=== PATIENT | female | born 1975 | race Caucasian/White ===

== ENCOUNTER → 2016-05-28 | Outpatient (CLI) | payer OTHER ==
[~2016-05-28] MED LIST: /ESOM40CA; /ESOM40CA OR; /PANT40TA PO; /WARF5TA PO; ABIL5TAB OR; ABIL5TAB PO; ABIL5TAB5 PO; ACET500C; ACET500C OR; AMBI5TAB PO; BACL-67 PO; BODY PO; BUTRAN TD; CALC600T21 PO; CARA1TAB2 PO; CENTTAB47 PO; CHILCHW18 PO; COLA100C PO; COUM10TA PO; COUM1TAB17 PO; CYTO100T PO; EFFE150C PO; EFFE75CA75 OR; FERR325T OR; FERR32TA PO; FISH500C PO; FLEXERIL PO; HYDR-3719 PO; HYDRCRY PO; IRON18TA PO; IRON28TA; IRONCAP2 PO; IRONTAB3 PO; LASI40TA; LASI40TA OR; LIDO5DIS36 TD; LIPI10TA OR; LYRI75CA PO; MAXA10TA14 PO; MAXA10TA17; MAXA10TA17 OR; MELA1CAP2 PO; MIRA3350 PO; MISO200T3 PO; MOTR200T4 PO; MULTLIQ7 PO; NEXI40CA PO; PANT40TA2 PO; PREG50CA PO; PREN1CHW PO; PRENTAB44 PO; PROZ10CA7 PO; PROZ40CA PO; ROBA750T4 PO; SUCR1SUS PO; SUCR1TA PO; TOPA50TA7 PO; TOPI25TA2; TOPI50TA OR; TRAM50TA2 PO; TYLE325T5 PO; VENL37TA PO; VENL75TA2 PO; VICO5TAB OR; VICO5TAB PO; VICTOZA PO; VITA10002 PO; VITA100027; VITA100027 OR; VITA100072 PO; VITA250011 PO; VITA500019 PO; VITA50003 PO; VITAD1000T PO; VITAMIN B12 SC; XANA0.25 PO; XARE15TA PO; ZANA2CAP PO; ZANA4CAP PO; ZOFR20TA PO; [UNRECOGNIZED DRUG - OTHER] PO; [UNRECOGNIZED DRUG - OTHER] PO; coumadin PO
--- NOTE | 2016-06-07 00:24 | ECWPNPC ---
PATIENT NAME: NEYDA MAYNARD : 1975 GENDER: FEMALE VISIT DATE: 05/28/2016 DISCHARGE DATE: 05/28/16 1206 VISIT LOCKED DATE TIME: PHYSICIAN: ASTRID VELEZ PHYSICIAN PAGER NO: [phone] RESOURCE: ASTRID VELEZ REASON FOR APPOINTMENT 1. LOW BACK PAIN W/C HISTORY OF PRESENT ILLNESS HISTORY OF PRESENT ILLNESS: PAIN THE PATIENT DESCRIBES THE PAIN... 40 YEAR OLD FEMALE PATIENT WITH HISTORY OF CHRONIC LOW BACK PAIN. PATIENT DESCRIBES THE PAIN SHARP, STABBING, TENDER, THROBBING, SORE, SHOOTING, AND HAVING IT ALL THE TIME WITH A PAIN SCORE OF 8/10. 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 PATIENT SINCE THAT TRIED PHYSICAL THERAPY, ICE, HEAT AND OTHER METHODS BUT DID NOT FIND RELIEF FROM THEM. PATIENT IS CURRENTLY USING HYDROCODONE, LYRICA, AND TIZANIDINE WHICH SHE BELIEVES HELPS KEEP HER FUNCTIONAL AND MOBILE. PATIENT STATES THAT ANY TYPE OF ACTIVITY INCLUDING SITTING, STANDING, AND WALKING INCREASES THE PAIN IN HER LOWER BACK AND AT THIS TIME THE ONLY THING THAT HAS GIVEN HER RELIEF IS MEDICATION AND RELAXING. PATIENT DENIES UNEXPLAINABLE WEIGHT LOSS, FEVER, CHILLS, NEW CHANGES ON HIS URINARY OR BOWEL CONTROL. FALL RISK SCREENING: SCREENING :TWO OR MORE FALLS WITHOUT INJURY IN THE PAST YEAR CURRENT MEDICATIONS TAKING TOPAMAX 50 MG TABLET 1 TABLET ORALLY TWICE A DAY TAKING MAXALT-QA LEAD 10 MG TABLET DISPERSIBLE REPEAT WITH ONE TAB IN 2 HOURS IF NO REIEF ORALLY WITH ONSET OF MIGRAINE DAILY NEEDED TAKING XARELTO 20 TABLET 1 TABLET WITH FOOD ORALLY QD TAKING MIRALAX POWDER 2 CAP(S) ORALLY BID TAKING ZOFRAN 4 MG TABLET 1 ORALLY QID PRN NAUSEA TAKING NEXIUM 40 MG CAPSULE DELAYED RELEASE 1 CAPSULE ORALLY ONCE A DAY TAKING VITAMIN B-12 1000 MCG TABLET 1 TABLET ORALLY ONCE A DAY OTC TAKING LYRICA 150 MG CAPSULE 1 CAPSULE ORALLY TWICE DAILY TAKING ABILIFY 10 MG TABLET 1/2 TABLET ORALLY ONCE A DAY TAKING AMBIEN 10 MG TABLET 1 TABLET AT BEDTIME NEEDED ORALLY ONCE A DAY AT BEDTIME. MDD=1 TAKING MULTIVIT-IRON ORALLY DAILY TAKING TIZANIDINE HCL 4 MG TABLET 1 TABLET NEEDED ORALLY AT BEDTIME TAKING ABILIFY 5 MG TABLET 1 TABLET ORALLY ONCE A DAY TAKING VENLAFAXINE HCL 100 MG TABLET 1 TABLET WITH FOOD ORALLY TID TAKING CALCIUM 500 MG TABLET 1 TABLET WITH MEALS ORALLY TWICE A DAY TAKING VITAMIN D-3 5000 UNIT TABLET 1 CAPSULE ORALLY TWICE DAILY TAKING NORCO 10-325 MG TABLET 1 TABLET NEEDED ORALLY EVERY4 HRS PRN PAIN MDD=6 TAKING VITAMIN D3 MAXIMUM STRENGTH 5000 UNIT CAPSULE 2 ORALLY DISCONTINUED VITAMIN D 1000 UNIT TABLET 1 TABLET ORALLY ONCE A DAY DISCONTINUED OMEPRAZOLE 40 MG CAPSULE DELAYED RELEASE 1 CAPSULE ORALLY ONCE A DAY MEDICATION LIST REVIEWED AND RECONCILED WITH THE PATIENT PAST MEDICAL HISTORY GERD MIGRAINE HEADACHE, COMMON TYPE-JUNE 2009 MRI OF THE BRAIN NORMAL EXCEPT FOR 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 VELEZ GERD-JUNE 2009 EGD WITH LA GRADE A REFLUX ESOPHAGITIS AND HIATAL HERNIA GRADE 1 DIASTOLIC DYSFUNCTION BY MAY 2010 TTE-ANTECOL DEPRESSION C H/O INTENTIONAL TRAMADOL OD 06/2013 REQUIRING MECHANICAL VENTILATION H/O BILATERAL PULMONARY EMBOLI INVOLVING B CENTRAL PA 06/2013, - B LE DVT US-FAVOR 2 TO IMMOBILITY/NO HYPERCOAG W/U DONE/NO PREVIOUS VTE - FVL, PT GENE VARIANT, PROTEIN C/S LEVEL, ACL GASTRIC ULCER BY EGD [id number] RLE PARTIAL DVT POPLITEAL VEIN BY 08/02/14 US-XARELTO 15 BID BY [facility]-07/2014 -LA, NORMAL PROTEIN C/S/ATIII, -ACL, - HPP (FOR LA) POSSIBLE ROYAL-PATIENT DEFERRED NPSG EXCISION L AXILLARY LN-BY PATHOLOGY REACTIVE, - FOR MALIGNANCY C BLACK TATTOO PIGMENT-01/2016-DIAZ ALLERGIES NSAIDS: SWELLING: SIDE EFFECTS VIOXX: HIVES: ALLERGY NEURONTIN: HIVES: ALLERGY BUTRANS TRANSDERMAL PATCH: VOMITING/FELT DRUNK: ALLERGY OXYCODONE: NAUSEA/VOMITING: ALLERGY GABAPENTIN: DRUNK FEELING: SIDE EFFECTS SURGICAL HISTORY BTL C SECTION X 2 GASTRIC BYPASS ENDOSCOPY IVC FILTER PLACED/REMOVED-BRET 11/18/2014, [id number] PATHOLOGY 12/09/14 LYMPHENDECTOMY 01/19/2016 FAMILY HISTORY NO FAMILY HISTORY DOCUMENTED. SOCIAL HISTORY GENERAL: TOBACCO USE ARE YOU A:NONSMOKER LEARNING BARRIERS / SPECIAL NEEDS ORIENTED TO PLAN OF CARE: PATIENT, PAIN MANAGEMENT PATIENT, ORIENTED TO PLAN OF CARE: PATIENT, PAIN MANAGEMENT PATIENT. NEW PATIENT PAIN DIARY TODAY'S VISITNOTES FROM 0-10, WHAT LEVEL IS YOUR PAIN TODAY?0 PAIN CLINIC PFS, CLERGY, PUBLIC HEALTH REFERRALS PFS REFERRAL NEEDED?NO CLERGY REFERRAL NEEDED?NO PUBLIC HEALTH REFERRAL NEEDED?NO WAS THE PROVIDER NOTIFIED OF ANY PERTINENT INFO?NO PFS REFERRAL NEEDED?NO CLERGY REFERRAL NEEDED?NO PUBLIC HEALTH REFERRAL NEEDED?NO WAS THE PROVIDER NOTIFIED OF ANY PERTINENT INFO?NO HOSPITALIZATION/MAJOR DIAGNOSTIC PROCEDURE DEHYDRATION, [facility] 06/2013 OVERDOSE OF TRAMADOL, PULMONARY EMBOLISM 07/13 REVIEW OF SYSTEMS CONSTITUTIONAL: ANY CHANGE IN YOUR MEDICAL CONDITION? NO . CHILLS NO . FEVER NO . INFECTION: DO YOU HAVE NEW INFECTIONS? NO . DO YOU HAVE HISTORY OF MRSA? NO . MUSCULOSKELETAL: ANY NEW PATTERNS OF PAIN OR NUMBNESS? YES,THE ENTIRE RIGHT LEG HAS INTENSE PAIN . GASTROENTEROLOGY: ANY NEW CHANGE IN BOWEL CONTROL? NO . GENITOURINARY: ANY NEW CHANGE IN BLADDER CONTROL? NO . IS THERE A CHANCE YOU COULD BE ? NO . HEMATOLOGY/LYMPH: DO YOU TAKE ANY BLOOD THINNERS? (FOR EXAMPLE- COUMADIN, PLAVIX, AGGRENOX, PLATEL, PRADAXA, OR XARELTO) YES,EARELTO . WHEN WAS YOUR LAST DOSE? DATE: TIME: . NEUROLOGY: HAVE YOU FALLEN IN THE PAST 6 MONTHS? YES . ANY NEW EXTREMITY NUMBNESS OR WEAKNESS? NO . CARDIOLOGY: DO YOU HAVE A PACEMAKER OR DEFIBRILLATOR? NO . RESPIRATORY: HAVE YOU BEEN SICK IN THE PAST WEEK? NO . FEVER NO . FLU LIKE SYMPTOMS? NO . COUGH NO . INTEGUMENTARY: DO YOU HAVE ANY RASHES OR OPEN SORES? NO . ALLERGIC/IMMUNO: ARE YOU ALLERGIC TO SHELLFISH OR IV DYE? NO . ANY NEW ALLERGIES? NO . PSYCHIATRIC: DO YOU HAVE THOUGHTS OF HURTING YOURSELF OR SOMEONE ELSE? NO . ARE YOU ABUSED, NEGLECTED, OR IN AN UNSAFE ENVIRONMENT? NO . ENDOCRINOLOGY: ARE YOU DIABETIC? NO . OTHER: DO YOU NEED ANY PRESCRIPTIONS? YES . IF YES, PLEASE LIST: ____HYDROCODONE,TIZANTIDINE, . ANY NEW PROBLEMS WITH YOUR MEDICATIONS? YOLANDA . WHEN DID YOU LAST EAT? HYDROCODONE, TIZANTIDINE,LYRICA, AMBIEN . WHEN DID YOU LAST DRINK? ____ . WHAT DID YOU LAST DRINK? ____ . NAME OF PERSON DRIVING YOU HOME? ____ . DO YOU HAVE ANY OTHER QUESTIONS OR CONCERNS NO . REVIEWED BY: PROVIDER: ASTRID VELEZ MD . VITAL SIGNS WT 268.0 LBS, HT 62 IN, BMI 49.01 INDEX, BP 136/86 MM HG, HR 75 /MIN, RR 16 /MIN, TEMP 98.6 F, OXYGEN SAT % 98, NA INITIALS TL 1026, REVIEWED BY: VD. EXAMINATION : PATIENT IS ALERT O X 3 AND COOPERATIVE. TENDERNESS IN THE LOWER BACK AND PARASPINAL MUSCLE GROUP. PATIENT WALKS WITH ANTALGIC GAIT. LEFT LEG IS WEAKER THEN THE RIGHT AT EXTENSION AND FLEXION. MRI DONE ON 04/05/16 SHOWS HYPERTROPHIC DEGENERATIVE FACET CHANGES AT L1-L2, L2-L3, L3-L4, AND L5-S1. ASSESSMENTS RADICULOPATHY OF LUMBAR REGION - M54.16 (PRIMARY) INTERVERTEBRAL DISC DISORDERS WITH RADICULOPATHY, LUMBAR REGION - M51.16 INTERVERTEBRAL DISC DISORDERS WITH RADICULOPATHY, LUMBOSACRAL REGION - M51.17 TREATMENT RADICULOPATHY OF LUMBAR REGION REFILL LYRICA CAPSULE, 150 MG, 1 CAPSULE, ORALLY, TWICE DAILY, 30 DAY(S), 60, REFILLS 5 REFILL AMBIEN TABLET, 10 MG, 1 TABLET AT BEDTIME NEEDED, ORALLY, ONCE A DAY AT BEDTIME. MDD=1, 30 DAY(S), 30, REFILLS 1 REFILL TIZANIDINE HCL TABLET, 4 MG, 1 TABLET NEEDED, ORALLY, AT BEDTIME, 30 DAY(S), 30, REFILLS 1 NOTES: WE DISCUSSED SEVERAL ISSUES WITH MRS. MAYNARD'S PAIN MANAGEMENT CASE. AT THIS TIME THE PATIENT WILL CONTINUE WITH THE SAME MEDICATION REGIME BEFORE. PATIENT DENIES ABUSE OF ANY MEDICATION, DENIES USE OF ILLEGAL SUBSTANCES, AND STATES THAT SHE IS ONLY USING THE MEDICATION FOR PAIN MANAGEMENT. PATIENT BROUGHT HER MEDICATION IN THEIR ORIGINAL BOTTLES TODAY. PATIENT WILL PERFORM A URINE TOXICOLOGY REPORT TODAY. PATIENT WILL BE REFERRED TO DR. OCHOA FOR A SURGICAL CONSULT. I WILL ALSO REQUEST CLEARANCE FROM THE PRIMARY TO STOP THE PATIENT'S XERALTO FOR A LUMBAR EPIDURAL INJECTION. IF THERE IS ANY ISSUE WITH STOPPING THE XERALTO WE MAY CONSIDER DOING A LOVENOX BRIDGE. WE DISCUSSED THE RISKS, BENEFITS, AND ALTERNATIVES AND THE PATIENT WOULD LIKE TO MOVE FORWARD WITH THE LUMBAR EPIDURAL. INSTRUCTIONS WERE GIVEN, QUESTIONS WERE ANSWERED, PATIENT REPORTS UNDERSTANDING AND AGREES WITH THE PLAN. I, GAGAN CARRASCO, DOCUMENTED THE ABOVE INFORMATION ACTING A SCRIBE FOR DR. VELEZ. I HAVE REVIEWED THE ABOVE DOCUMENT, WRITTEN BY GAGAN FALL AND I VERIFY THAT IT IS ACCURATE. OTHERS REFILL NORCO TABLET, 10-325 MG, 1 TABLET NEEDED, ORALLY, EVERY4 HRS PRN PAIN MDD=6, 30 DAY(S), 180, REFILLS 0 PROCEDURES PN WORKMANS' COMP OPINION IN YOUR OPINION, WAS THE INCIDENT THAT THE PATIENT DESCRIBED THE COMPETENT MEDICAL CAUSE OF THIS INJURY/ILLNESS? YES ARE THE PATIENT'S COMPLAINTS CONSISTENT WITH HIS/HER HISTORY OF THE INJURY/ILLNESS? YES IS THE PATIENT'S HISTORY OF THE INJURY/ILLNESS CONSISTENT WITH YOUR OBJECTIVE FINDING? YES WHAT IS THE PERCENTAGE OF TEMPORARY IMPAIRMENT? MODERATE TO MARKED = 66.7% IS THE PATIENT WORKING? NO DOCTOR ON SITE: ASTRID MARQUEZ MD PROCEDURE CODES FA211 ESTABILISHED PATIENT [facility] FACILITY CHARGE G8427 DOC MEDS VERIFIED W/PT OR RE G8730 PAIN ASSESS POS TOOL F/U PLAN DOC FOLLOW UP LESI AFTER APPROVAL ELECTRONICALLY SIGNED BY ASTRID VELEZ MD ON 06/06/2016 AT 08:13 PM EST DISCLAIMER : THIS IS A VISIT SUMMARY EXTRACTED FROM THE [facility] CHART. IT IS NOT A COPY OF THE [facility] PROGRESS NOTE. SHIMA
== END ==
LOC: M PAIN 10:20
PROVIDERS: ATTEND Anesthesiology
DX: Z09 Encounter for follow-up examination after completed treatment for conditions other than malignant neoplasm (principal); G89.29 Other chronic pain; M51.16 Intervertebral disc disorders with radiculopathy, lumbar region; M51.17 Intervertebral disc disorders with radiculopathy, lumbosacral region; K21.9 Gastro-esophageal reflux disease without esophagitis; E66.9 Obesity, unspecified; K76.0 Fatty (change of) liver, not elsewhere classified; E78.5 Hyperlipidemia, unspecified; D50.9 Iron deficiency anemia, unspecified; D51.9 Vitamin B12 deficiency anemia, unspecified; I50.30 Unspecified diastolic (congestive) heart failure; F32.9 Major depressive disorder, single episode, unspecified; Z88.5 Allergy status to narcotic agent; Z88.6 Allergy status to analgesic agent; Z88.8 Allergy status to other drugs, medicaments and biological substances; Z68.42 Body mass index [BMI] 45.0-49.9, adult; Z79.01 Long term (current) use of anticoagulants; Z79.891 Long term (current) use of opiate analgesic; Z79.899 Other long term (current) drug therapy; Z86.39 Personal history of other endocrine, nutritional and metabolic disease; Z98.84 Bariatric surgery status

== ENCOUNTER → 2016-07-21 | Outpatient (CLI) | payer OTHER ==
--- NOTE | 2016-07-21 16:24 | REP ---
RIGHT KNEE, FIVE VIEWS: HISTORY: Pain. There is no acute fracture or dislocation. The joint spaces are normal in appearance. Calcifications are present along the lateral aspect of the proximal tibia. This represents ligamentous or tendon calcification. IMPRESSION: There is no acute fracture or dislocation. Signed by Bradly Tena MD 07/21/2016 04:24 P
== END ==
LOC: M ADAMS 15:24
PROVIDERS: ATTEND Physician Assistant
DX: M25.561 Pain in right knee (principal)

== ENCOUNTER → 2016-07-29 | Outpatient (CLI) | payer OTHER ==
[~2016-07-29] MED LIST changes: +AMBI10TA PO; +B-1210009 PO; +CALC500T49 PO; +OMEP40CA2 PO; +ONDA1TAB15 PO; +PRENTAB31 PO; +RIZA10TA4 PO; +VENL100T PO; +VITA500046 PO; +ZANA4TAB PO
[2016-07-29 17:02] LABS: FERRITIN 17 NG/ML (8-252)
[2016-07-29 17:03] LABS: BASO % 0.8 % (0.0-1.0); EOS # 0.1 K/mm3 (0.0-0.50); EOS % 1.1 % (0.0-3.0); LARGE UNSTAINED CELL # 0.1 K/mm3 (0.0-0.4); LARGE UNSTAINED CELL % 1.9 % (0.0-4.0); LYMPH # 2.1 K/mm3 (1.5-4.5); LYMPH % 34.4 % (24.0-44.0); MEAN CORPUSCULAR HEMOGLOBIN 33.1 pg (27.0-33.0); MEAN CORPUSCULAR HGB CONC 32.6 g/dl (32.0-36.5); MEAN CORPUSCULAR VOLUME 101.7 fl (80.0-96.0); MONO # 0.3 K/mm3 (0.0-0.8); MONO % 5.6 % (0.0-5.0); NEUTROPHILS # 3.4 K/mm3 (1.8-7.7); NEUTROPHILS % 56.1 % (36.0-66.0); PLATELET COUNT, AUTOMATED 280 k/mm3 (150-450); RED CELL DISTRIBUTION WIDTH 12.4 % (11.5-14.5); WHITE BLOOD COUNT 6.1 K/mm3 (4.0-10.0)
[2016-07-29 17:17] LABS: ALBUMIN 3.5 GM/DL (3.2-5.2); ALKALINE PHOSPHATASE 91 U/L (45-117); ALT/SGPT 24 U/L (12-78); ANION GAP 7 MEQ/L (8-16); AST/SGOT 20 U/L (15-37); BILIRUBIN,TOTAL 0.2 MG/DL (0.2-1.0); BLOOD UREA NITROGEN 11 MG/DL (7-18); CALCIUM LEVEL 8.5 MG/DL (8.5-10.1); CARBON DIOXIDE LEVEL 26 MEQ/L (21-32); CHLORIDE LEVEL 111 MEQ/L (98-107); CREATININE FOR GFR 0.99 MG/DL (0.55-1.02); GLOMERULAR FILTRATION RATE > 60.0 (>58); GLUCOSE, FASTING 78 MG/DL (70-105); MAGNESIUM LEVEL 2.1 MG/DL (1.8-2.4); PERCENT SATURATION 15.7 % (13.2-37.4); POTASSIUM SERUM 4.1 MEQ/L (3.5-5.1); SODIUM LEVEL 144 MEQ/L (136-145); TOTAL IRON BINDING CAPACITY 383 UG/DL (250-450)
== END ==
LOC: M LAB 16:06
PROVIDERS: ATTEND Family Medicine
DX: D50.9 Iron deficiency anemia, unspecified (principal)

== ENCOUNTER 2016-08-03 00:33 | Inpatient (IN) | payer OTHER ==
[~2016-08-03] VITALS: Ht 157.5 cm; Wt 119.9 kg
[~2016-08-03 00:33] MED LIST changes: -AMBI10TA PO; -B-1210009 PO; -CALC500T49 PO; -COLA100C PO; +COLA100C3 PO; -OMEP40CA2 PO; -ONDA1TAB15 PO; -PRENTAB31 PO; -RIZA10TA4 PO; -VENL100T PO; -VITA500046 PO; -ZANA4TAB PO
[2016-08-03] MEDS ORDERED: VITA500046 PO (00:59)
[2016-08-03] MEDS ORDERED: AMBI10TA PO (00:59)
[2016-08-03] MEDS ORDERED: EFFE150C PO (00:59)
[2016-08-03] MEDS ORDERED: TOPA50TA7 PO (00:59)
[2016-08-03 01:56] LABS: MEAN CORPUSCULAR HEMOGLOBIN 33.6 pg (27.0-33.0); MEAN CORPUSCULAR HGB CONC 33.5 g/dl (32.0-36.5); MEAN CORPUSCULAR VOLUME 100.3 fl (80.0-96.0); RED CELL DISTRIBUTION WIDTH 12.4 % (11.5-14.5); WHITE BLOOD COUNT 6.7 K/mm3 (4.0-10.0)
[2016-08-03 02:16] LABS: METHADONE URINE NEGATIVE (NEGATIVE)
[2016-08-03 02:29] LABS: ALBUMIN 3.5 GM/DL (3.2-5.2); ALBUMIN/GLOBULIN RATIO 0.95 (1.00-1.93); ALKALINE PHOSPHATASE 83 U/L (45-117); ALT/SGPT 19 U/L (12-78); ANION GAP 8 MEQ/L (8-16); AST/SGOT 29 U/L (15-37); BILIRUBIN,DIRECT < 0.1 MG/DL (0.0-0.2); BILIRUBIN,TOTAL 0.2 MG/DL (0.2-1.0); BLOOD UREA NITROGEN 10 MG/DL (7-18); CALCIUM LEVEL 8.8 MG/DL (8.5-10.1); CARBON DIOXIDE LEVEL 25 MEQ/L (21-32); CHLORIDE LEVEL 109 MEQ/L (98-107); CREATININE FOR GFR 0.71 MG/DL (0.55-1.02); GLOMERULAR FILTRATION RATE > 60.0 (>58); GLUCOSE, FASTING 87 MG/DL (70-105); POTASSIUM SERUM 3.8 MEQ/L (3.5-5.1); SODIUM LEVEL 142 MEQ/L (136-145); TOTAL PROTEIN 7.2 GM/DL (6.4-8.2)
[2016-08-03] MEDS ORDERED: MAALOX 30 ML SUSP *UDC PO PRN (02:45)
[2016-08-03] MEDS ORDERED: ACETAMINOPHEN TAB 650MG DOSE (2X325MG) PO PRN (02:45)
[2016-08-03] MEDS ORDERED: traZODone 50 MG TAB PO PRN (02:45)
[2016-08-03] MEDS ORDERED: MOM 30ML SUSPENSION UDC PO PRN (02:45)
[2016-08-03] MEDS ORDERED: VENL100T PO (03:09)
[2016-08-03] MEDS ORDERED: B-1210009 PO (03:09)
[2016-08-03] MEDS ORDERED: CALC500T49 PO (03:09)
[2016-08-03] MEDS ORDERED: PRENTAB31 PO (03:09)
[2016-08-03] MEDS ORDERED: OMEP40CA2 PO (03:09)
[2016-08-03] MEDS ORDERED: ONDA1TAB15 PO (03:09)
[2016-08-03] MEDS ORDERED: RIZA10TA4 PO (03:09)
[2016-08-03] MEDS ORDERED: ZANA4TAB PO (03:09)
[2016-08-03 03:54] VITALS: BP 136/77
[2016-08-03] MEDS ORDERED: RIVAROXABAN 20 MG TAB (XARELTO) PO SCH ×2 (09:00→18:00)
[2016-08-03] MEDS ORDERED: RIZATRIPTAN MLT 10 MG TAB PO PRN (11:15)
[2016-08-03] MEDS ORDERED: tiZANidine 4 MG TAB PO PRN (11:15)
[2016-08-03] MEDS ORDERED: ONDANSETRON 4 MG TAB (S0181) PO PRN (11:15)
--- NOTE | 2016-08-03 11:15 | HPEPDOC ---
Medical History and Physical Date of Admission Aug 03, 2016 at 02:44 History and Physical PCP: Dr Galindo ATTENDING: Dr. Edi Whiteside HPI: 40yoF admitted to [facility] for unspecified depressive disorder, being medically examined today. No acute medical complaints today. Denies any fevers, chills, weakness, fatigue, MORAN, CP, SOB, cough, palpitations, abdominal pain, N/V /D or changes in bowel or bladder habits. PMHx: Chronic low back pain-[facility] pain management Anxiety Depression H/O SI/OD TTE 05/1211 Grade I DD Chronic peripheral edema/venous insufficiency History of DVT/PE Chronic migraine headache GERD PCOS- Dr Castillo Obesity/history of bariatric surgery BMI 48.3 NAFLD PSHX: BTL 2 Gastric bypass Endoscopy IVC filter placed/removed-Dr. Martinez 11/13, 06/17 Lymphadenectomy 01/15 Umbilical Hernia repair JOSAFAT. Dr Castillo. 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 Previously 6-12 per night Illicit Drugs: Denies IV Drug Use: Denies Tattoos done unprofessionally: Denies FAMHX: Mother: Alive, diabetes, CAD Father: Alive, diabetes, CAD Siblings: One brother Alive, unknown Children: Alive, well Unexpected deaths due to medical reasons: None. ROS: As noted in HPI, otherwise 11pt ROS of systems reviewed and remarkable only for LMP NA hysterectomy. PE: GEN: 40yoF, appears stated age. Well-nourished, well developed. No acute distress. Alert and oriented x 3. Pleasant, interactive. HEENT: Normocephalic, atraumatic. Pupils are equal, round, and reactive to light. Extraocular movements are intact. No nystagmus appreciated. Sclera are nonicteric. Conjunctiva without injection. Nose midline. Nasal turbinates without bogginess. EACs both patent BL. TMs both visualized and joseph with good cone of light, no bulging or erythema. No facial asymmetry. Moist mucous membranes. Dentition fair. Pharynx pink and moist, no cobblestoning. Neck supple , trachea midline. No lymphadenopathy or thyromegaly appreciated. CHEST: Regular rate and rhythm, +S1, +S2 LUNGS: Clear to auscultation bilaterally. No wheezes, rales, or rhonchi. Breathing appears symmetric and easy. Patient is speaking in full sentences. No accessory muscle use. ABD: Round, soft, non-tender, non-distended. +Bowel sounds throughout. No rebound or guarding. No costovertebral angle tenderness. EXT: Pulses 2+ bilaterally dorsalis pedis and radial. No lower extremity edema appreciated. SKIN: [place], dry, warm. Capillary refill <2sec. No rashes. NEURO: Alert and oriented x 3. Cranial nerves III-XII are intact. No focal deficits appreciated. EK04/05/16 SINUS RHYTHM LOW VOLTAGE LIMB PRWP SIMILAR 08/25/14 A&P: 40yoF admitted to [facility] for unspecified depressive disorder 1. Psych. Plan per Psychiatry. EKG on file. 2. History of DVT/PE. Continue Xarelto 20 mg by mouth daily. 3. Chronic migraine headache. Continue Topamax 50 mg twice a day 4. Follow up with PCP on discharge. 5. Chronic low back pain. Patient follows with [facility] pain management. Continue Lyrica 150 mg by mouth twice a day, Zanaflex 4 mg at bedtime. Patient receives hydrocodone 10/325 one tablet every 4 hours as needed. ISTOP is accessed, Lyrica filled 08/02/16, Hydrocodone 07/26/16. Pt has outpt f/u with [facility]. Pt states she does not feel she needs to see them currently. 6. GERD. Continue Prilosec 40 mg daily. 7. History of bariatric surgery/obesity. BMI 48.3. Patient remains on supplements including vitamin D, vitamin B12, calcium, multivitamin. Patient uses Zofran 4 mg 4 times a day as needed. 8. Staff member [employer] present throughout exam. Vital Signs Vital Signs Label Value Date Time Patient Temperature 98.4 degrees F 08/03/16 035 Temperature Source Skin 08/03/16353 Pulse 88 08/03/16353 Respiratory Rate 20 bpm 08/03/16353 Blood Pressure Assessment 136/77 (96) 08/03/16 035 Bedside Pulse Oximetry 98 % 08/03/16 0341 Item Value Date Time Oxygen Delivery Method Room Air 08/03/16353 Laboratory Data Labs 24H Laboratory Tests 2 08/03/16 01:32: Acetaminophen Level < 2.0L, Aspartate Amino Transf (AST/SGOT) 29, Alanine Aminotransferase (ALT/SGPT) 19, Alkaline Phosphatase 83, Total Bilirubin 0.2, Direct Bilirubin < 0.1, Albumin 3.5, Albumin/Globulin Ratio 0.95L, Anion Gap 8, Calcium Level 8.8, Ethyl Alcohol Level 0.036H, Glomerular Filtration Rate > 60.0 , Salicylates Level < 1.7L, Thyroid Stimulating Hormone (TSH) 2.730, Total Protein 7.2 08/03/16 01:33: Urine Amphetamines Screen NEGATIVE, Urine Benzodiazepines Screen NEGATIVE, Urine Opiates Screen NEGATIVE, Urine Barbiturates Screen NEGATIVE, Urine Cannabinoids Screen NEGATIVE, Urine Cocaine Metabolite Screen NEGATIVE, Urine Methadone Screen NEGATIVE, Urine Phencyclidine Screen NEGATIVE CBC/BMP Laboratory Tests 08/03/16 01:32 Red Blood Count 3.72 L, Mean Corpuscular Volume 100.3 H, Mean Corpuscular Hemoglobin 33.6 H, Mean Corpuscular Hemoglobin Concent 33.5, Red Cell Distribution Width 12.4 Home Medications Scheduled Aripiprazole (Abilify) 5 Mg Tab 5 MG PO QHS Calcium (Calcium) 500 Mg Tab 500 MG PO DAILY Cholecalciferol (Vitamin D) 5,000 Unit Tab 5,000 UNIT PO BID Cyanocobalamin (B-12) 1,000 Mcg Tab 1,000 MCG PO DAILY Multivitamins/ ( Forte) 1 Tab Tab 1 TAB PO DAILY Omeprazole (Omeprazole) 40 Mg Cap 40 MG PO DAILY Pregabalin (Lyrica) 75 Mg Cap 150 MG PO BID Rivaroxaban (Xarelto) 15 Mg Tab 20 MG PO DAILY Tizanidine Hydrochloride (Zanaflex) 4 Mg Tab 1 TAB PO QHS Topiramate (Topamax) 50 Mg Tab 50 MG PO BID Venlafaxine Hydrochloride (Venlafaxine HCl) 100 Mg Tab 100 MG PO QID Zolpidem Tartrate (Ambien) 10 Mg Tab 10 MG PO QHS Scheduled PRN Acetaminophen/Hydrocodone (Hydrocodone/Acetaminophen 10-325 mg) 1 Tab Tab 1 TAB PO Q4HP PRN PRN PAIN Ondansetron HCl (Ondansetron HCl) 4 Mg Tab 4 MG PO QID PRN PRN NAUSEA OR VOMITING Rizatriptan Benzoate (Rizatriptan Benzoate Odt) 10 Mg Tab 10 MG PO ASDIRECTED PRN PRN MIGRAINE Allergies Coded Allergies: Gabapentin (Verified Allergy, Intermediate, RASH, 08/01/12) NSAIDs (Verified Allergy, Intermediate, "SWELLING", 08/01/12) Rofecoxib (Verified Allergy, Intermediate, HIVES,JOINT SWELLING, 08/01/12) Oxycodone (Verified Adverse Reaction, Severe, SEVERE VOMITING, 08/01/12) Buprenorphine (Verified Adverse Reaction, Intermediate, DIZZINESS/VOMITING , 08/01/12) Cassie Tafoya Aug 03, 2016 11:15
[2016-08-03] MEDS: VENLAFAXINE 37.5 MG TAB PO SCH ×2 (11:22→20:55)
[2016-08-03] MEDS: PREGABALIN 75 MG CAP(LYRICA) PO SCH ×2 (12:38→20:54)
[2016-08-03] MEDS: PRENATAL VITAMIN TAB PO SCH (12:38)
[2016-08-03] MEDS: OYSTER SHELL CALCIUM 500 MG TAB PO SCH (12:39)
[2016-08-03] MEDS: OMEPRAZOLE 20 MG CAP PO SCH (12:39)
[2016-08-03] MEDS: CYANOCOBALAMIN 500 MCG TAB PO SCH (12:39)
[2016-08-03] MEDS: VENLAFAXINE 25 MG TAB PO SCH ×2 (12:39→20:54)
[2016-08-03] MEDS: TOPIRAMATE (TopAMAX) 25 MG TAB PO SCH ×2 (12:39→20:55)
[2016-08-03] MEDS: VITAMIN D 1,000 INTERNATIONAL UNITS TABLET PO SCH ×2 (12:42→20:55)
--- NOTE | 2016-08-03 15:28 | MHHPE ---
DATE OF ADMISSION: 08/03/2016 Priscilla Santiago is a 40-year-old female who states that she was having "not so good thoughts about hurting herself." She had told her , but she had also told her father. She lives with her and feels that her mood has been getting worse over time. She thinks her mood is decreased over 6 months. She states that the day before admission she broke down crying and stated, "I just wanted my life to end." She was thinking what songs she would have played at her . In 2013, she overdosed. She had been on life support and was a patient of Dr. Mark. At that time, she was also having problems with her . She states, "My is my problem." She states that he yells at her. She has been to him for 4 years. He is 31 years old. He works at [employer]. The patient also states that last year she was drinking a 6 to 12-pack of beer every day. She said that she has stopped recently. FAMILY HISTORY: The patient has a family history of schizophrenia, bipolarity, depression, and alcoholism. 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 At that time, she had slipped and hit her spine. PSYCHIATRIC HISTORY: She states, "I am always depressed but not always suicidal." She states, "before my marriage I used to be happy. He is jealous of her children, jealous of everything that she does." She has two children -- 18 and 9 years old. This is her second marriage. PSYCHIATRIC COURSE ON THE UNIT: The patient states that she saw Dr. Altamirano after her first overdose, but she said that they did not get along. She states that she then saw Dr. Pierce for approximately 6 months. She is no longer seeing a psychiatrist and is treated by Dr. Galindo, her primary care provider. She states that her medication has just been increased by Dr. Galindo to 400 mg of Effexor and 5 mg of Abilify. She states all of her problems are marital and she does not belong here. SURGICAL HISTORY: The patient has had a gastric bypass and lost significant weight but gained a lot of it back. PRESENT MEDICATIONS: Reviewed by Cassie Tafoya and her psychiatric medications are: - venlafaxine 400 mg per day - Abilify 5 mg daily MENTAL STATUS EXAMINATION: Speech is normal rate and rhythm and articulation. No disturbances of thought process. No loose associations. No abnormal or psychotic thoughts. Judgment and insight are poor. Orientation full in three spheres. Recent and remote memory are intact. No disturbances of attention or concentration. No disturbance of language. Fund of knowledge is good. Mood is fair. Affect is neutral. IMPRESSION: 1. Major depression. 2. Marital difficulties. We will observe and maintain on medication previously prescribed by her primary care provider.
[2016-08-03 18:00] VITALS: BP 118/58
[2016-08-03] MEDS: ANEXSIA, NORCO 7.5MG/325MG TABLET(HYDROCODONE/APAP) PO PRN ×2 (18:34→22:36)
[2016-08-04 06:10] VITALS: BP 117/59
[2016-08-04] MEDS: ANEXSIA, NORCO 7.5MG/325MG TABLET(HYDROCODONE/APAP) PO PRN ×2 (06:30→11:32)
[2016-08-04] MEDS: OYSTER SHELL CALCIUM 500 MG TAB PO SCH (09:16)
[2016-08-04] MEDS: PRENATAL VITAMIN TAB PO SCH (09:16)
[2016-08-04] MEDS: PREGABALIN 75 MG CAP(LYRICA) PO SCH (09:16)
[2016-08-04] MEDS: OMEPRAZOLE 20 MG CAP PO SCH (09:16)
[2016-08-04] MEDS: VENLAFAXINE 25 MG TAB PO SCH (09:17)
[2016-08-04] MEDS: VENLAFAXINE 37.5 MG TAB PO SCH (09:17)
[2016-08-04] MEDS: VITAMIN D 1,000 INTERNATIONAL UNITS TABLET PO SCH (09:17)
[2016-08-04] MEDS: CYANOCOBALAMIN 500 MCG TAB PO SCH (09:18)
[2016-08-04] MEDS: TOPIRAMATE (TopAMAX) 25 MG TAB PO SCH (09:18)
[2016-08-04] MEDS ORDERED: ARIP5TA PO (10:54)
[2016-08-04] MEDS ORDERED: TOPA25TA10 PO (10:54)
--- NOTE | 2016-08-04 13:46 | MHDS ---
DATE OF ADMISSION: 08/03/2016 DATE OF DISCHARGE: 08/04/2016 Priscilla Santiago is a 40-year-old female who states that she was having "not so good thoughts about hurting herself." She had no intentions of hurting herself, according to her. She told her , who told her father. She lives with her and feels that her mood has been getting worse over time, she thinks her mood has decreased over the last 6 months. The day before admission she broke down crying and stated, "I just wanted my life to end." She has had a previous history of overdosing in 2013. At that time she was on life support and was a patient of Dr. Altamirano. She was having problems with her , which continues. She states, "my is my problem." She states that he yells at her. She states that she has been to him for four years. He is 31 years old and works at [employer]. The patient states that for the last year she has been drinking 6 to 12-pack of beer every day, but has stopped recently. FAMILY HISTORY: The patient has a family history of schizophrenia, bipolarity, depression, and alcoholism. 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 At that time, she had slipped and hit her spine. PSYCHIATRIC HISTORY: She states, "I am always depressed but not always this bad or with suicidal thoughts." She states, "before my marriage I was happy." He is jealous of her children, "jealous of everything that she does." She has two children -- 18 and 9 years old. This is her second marriage. PSYCHIATRIC COURSE ON THE UNIT: The patient states that she saw Dr. Altamirano after her first overdose, but states that they did not get along. She states that she then saw Dr. Pierce for 6 months. She is no longer seeing a psychiatrist and is treated by Dr. Galindo, her primary care provider, who recently increased her medication to 400 mg of Effexor and 5 mg of Abilify. She states all of her problems are marital and that she does not belong in the hospital. SURGICAL HISTORY: The patient has had a gastric bypass and lost significant weight but gained a lot of it back after continuing arguments with her . Examination by Cassie Tafoya revealed a past medical history of chronic low back pain, anxiety, depression, chronic peripheral edema, venous insufficiency, history of deep vein thrombosis (DVT) and pulmonary embolism, chronic migraine headaches, gastroesophageal reflux disease (GERD), obesity, history of bariatric surgery. Cassie Tafoya suggested continuing Topamax. Acknowledged that the patient gets Zanaflex at bedtime. Continue Lyrica. Receive hydrocodone every 4 hours as needed. Continue Prilosec. LABORATORY EXAMINATION: CBC revealed an MCV slightly high at 100.3, MCH 33.6, mildly increased chloride of 109. Toxicology screen was negative. COURSE ON THE UNIT: Today, the patient discussed her plan. She is giving up her apartment, moving in with her parents and plans to leave her . Her mood is good. She continues on the same medications. She denies suicidal or homicidal ideation. She denies hallucinations, obsessions, compulsions, phobias. Speech is normal. No disturbances of thought process. No loose associations. No abnormal or psychotic thoughts noted. Judgment and insight are good. Orientation in three spheres. No difficulties of recent and remote memory. Attention and concentration are intact. No disturbances of language. Full fund of knowledge. Mood is good. Affect is bright. The patient will be discharged. Family meeting was scheduled. The patient was discharged to followup as per discharge planning. DISCHARGE DIAGNOSIS: Major depressive illness. DISCHARGE MEDICATIONS: - Effexor 400 mg daily - Abilify 5 mg daily
== END 2016-08-04 12:40 | disposition home or self-care (01) | DRG 754 ==
LOC: M ED 01:44 → M ED INP 02:44 → M PSY 03:45
PROVIDERS: ADMIT Psychiatry & Neurology Psychiatry; ATTEND Psychiatry & Neurology Child & Adolescent Psychiatry
DX: F32.9 Major depressive disorder, single episode, unspecified (principal); K76.0 Fatty (change of) liver, not elsewhere classified; Z68.42 Body mass index [BMI] 45.0-49.9, adult; Z63.0 Problems in relationship with spouse or partner; Z98.84 Bariatric surgery status; M54.5 Low back pain; I87.2 Venous insufficiency (chronic) (peripheral); E66.9 Obesity, unspecified; K21.9 Gastro-esophageal reflux disease without esophagitis; G43.709 Chronic migraine without aura, not intractable, without status migrainosus; Z90.710 Acquired absence of both cervix and uterus; Z86.711 Personal history of pulmonary embolism; Z86.718 Personal history of other venous thrombosis and embolism; Z88.8 Allergy status to other drugs, medicaments and biological substances; Z88.5 Allergy status to narcotic agent; Z91.5 Personal history of self-harm; Z81.8 Family history of other mental and behavioral disorders

== ENCOUNTER → 2016-08-06 | Outpatient (CLI) | payer OTHER ==
[~2016-08-06] MED LIST changes: +AMBI10TA PO; +ARIP5TA PO; +B-1210009 PO; +CALC500T49 PO; +OMEP40CA2 PO; +ONDA1TAB15 PO; +PRENTAB31 PO; +RIZA10TA4 PO; +TOPA25TA10 PO; +VENL100T PO; +VITA500046 PO; +ZANA4TAB PO
--- NOTE | 2016-08-15 23:11 | ECWPNPC ---
PATIENT NAME: NEYDA MAYNARD : 1975 GENDER: FEMALE VISIT DATE: 08/06/2016 DISCHARGE DATE: 08/06/16 1451 VISIT LOCKED DATE TIME: PHYSICIAN: ASTRID VELEZ PHYSICIAN PAGER NO: [phone] RESOURCE: ASTRID VELEZ REASON FOR APPOINTMENT 1. W/C LOW BACK PAIN HISTORY OF PRESENT ILLNESS HISTORY OF PRESENT ILLNESS: PAIN THE PATIENT DESCRIBES THE PAIN... 40 YEAR OLD FEMALE PATIENT WITH HISTORY OF CHRONIC LOW BACK PAIN. PATIENT DESCRIBES THE PAIN SHARP, STABBING, TENDER, THROBBING, SORE, SHOOTING, AND HAVING IT ALL THE TIME WITH A PAIN SCORE OF 8/10. 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 PATIENT SINCE THAT TRIED PHYSICAL THERAPY, ICE, HEAT AND OTHER METHODS BUT DID NOT FIND RELIEF FROM THEM. PATIENT IS CURRENTLY USING HYDROCODONE, LYRICA, AND TIZANIDINE WHICH SHE BELIEVES HELPS KEEP HER FUNCTIONAL AND MOBILE. PATIENT STATES THAT ANY TYPE OF ACTIVITY INCLUDING SITTING, STANDING, AND WALKING INCREASES THE PAIN IN HER LOWER BACK AND AT THIS TIME THE ONLY THING THAT HAS GIVEN HER RELIEF IS MEDICATION AND RELAXING. MRS. MAYNARD IS PENDING A LUMBAR EPIDURAL AT THIS TIME. PATIENT DENIES UNEXPLAINABLE WEIGHT LOSS, FEVER, CHILLS, NEW CHANGES ON HIS URINARY OR BOWEL CONTROL. FALL RISK SCREENING: SCREENING :NO FALLS IN THE PAST YEAR CURRENT MEDICATIONS TAKING VITAMIN D-3 5000 UNIT TABLET 1 CAPSULE ORALLY TWICE DAILY TAKING VITAMIN D3 5000 UNIT CAPSULE TAKE ONE CAPSULE BY MOUTH TWICE A DAY TAKING TOPAMAX 50 MG TABLET 1 TABLET ORALLY TWICE A DAY TAKING MAXALT-PHOTO MASK PROCESSOR 10 MG TABLET DISPERSIBLE REPEAT WITH ONE TAB IN 2 HOURS IF NO REIEF ORALLY WITH ONSET OF MIGRAINE DAILY NEEDED TAKING XARELTO 20 TABLET 1 TABLET WITH FOOD ORALLY QD TAKING MIRALAX POWDER 2 CAP(S) ORALLY BID TAKING ZOFRAN 4 MG TABLET 1 ORALLY QID PRN NAUSEA TAKING VITAMIN B-12 1000 MCG TABLET 1 TABLET ORALLY ONCE A DAY OTC TAKING ABILIFY 10 MG TABLET 1/2 TABLET ORALLY ONCE A DAY TAKING MULTIVIT-IRON ORALLY DAILY TAKING OMEPRAZOLE 40 MG CAPSULE DELAYED RELEASE TAKE ONE CAPSULE BY MOUTH EVERY DAY TAKING AMBIEN 10 MG TABLET 1 TABLET AT BEDTIME NEEDED ORALLY ONCE A DAY AT BEDTIME. MDD=1 TAKING LYRICA 150 MG CAPSULE 1 CAPSULE ORALLY THREE TIMES DAILY TAKING NORCO 10-325 MG TABLET 1 TABLET NEEDED ORALLY EVERY4 HRS PRN PAIN MDD=6 TAKING TIZANIDINE HCL 4 MG TABLET 1 TABLET NEEDED ORALLY AT BEDTIME TAKING VENLAFAXINE HCL 100 MG TABLET 1 TABLET WITH FOOD QID TAKING CALCIUM 500 MG TABLET 1 TABLET WITH MEALS ORALLY TWICE A DAY TAKING LASIX 20 MG TABLET 1 TABLET ORALLY ONCE A DAY NEEDED FOR EDEMA DISCONTINUED NEXIUM 40 MG CAPSULE DELAYED RELEASE 1 CAPSULE ORALLY ONCE A DAY DISCONTINUED XARELTO 20 MG TABLET TAKE ONE TABLET BY MOUTH EVERY DAY WITH FOOD DISCONTINUED VITAMIN D3 MAXIMUM STRENGTH 5000 UNIT CAPSULE 2 ORALLY DISCONTINUED ABILIFY 5 MG TABLET 1 TABLET ORALLY ONCE A DAY DISCONTINUED VENLAFAXINE HCL 100 MG TABLET 2 TABLETS WITH FOOD ORALLY BID MEDICATION LIST REVIEWED AND RECONCILED WITH THE PATIENT PAST MEDICAL HISTORY GERD MIGRAINE HEADACHE, COMMON TYPE-JUNE 2009 MRI OF THE BRAIN NORMAL EXCEPT FOR 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 VELEZ GERD-JUNE 2009 EGD WITH LA GRADE A REFLUX ESOPHAGITIS AND HIATAL HERNIA GRADE 1 DIASTOLIC DYSFUNCTION BY MAY 2010 TTE-ANTECOL DEPRESSION C H/O INTENTIONAL TRAMADOL OD 06/2013 REQUIRING MECHANICAL VENTILATION H/O BILATERAL PULMONARY EMBOLI INVOLVING B CENTRAL PA 06/2013, - B LE DVT US-FAVOR 2 TO IMMOBILITY/NO HYPERCOAG W/U DONE/NO PREVIOUS VTE - FVL, PT GENE VARIANT, PROTEIN C/S LEVEL, ACL GASTRIC ULCER BY EGD [id number] RLE PARTIAL DVT POPLITEAL VEIN BY 08/02/14 [place] 15 B[place] [facility] [facility] [place], NORMAL PROTEIN C/S/ATIII, -ACL, - HPP (FOR LA) POSSIBLE ROYAL-PATIENT DEFERRED NPSG EXCISION L AXILLARY LN-BY PATHOLOGY REACTIVE, - FOR MALIGNANCY C BLACK TATTOO PIGMENT-01/2016-DIAZ 04/2016 -JONY, RF, CCP 5, CRP <0.3/ESR 15 ALLERGIES NSAIDS: SWELLING: SIDE EFFECTS VIOXX: HIVES: ALLERGY NEURONTIN: HIVES: ALLERGY BUTRANS TRANSDERMAL PATCH: VOMITING/FELT DRUNK: ALLERGY OXYCODONE: NAUSEA/VOMITING: ALLERGY GABAPENTIN: DRUNK FEELING: SIDE EFFECTS SURGICAL HISTORY BTL C SECTION X 2 GASTRIC BYPASS ENDOSCOPY IVC FILTER PLACED/REMOVED-BRET 11/18/2014, [id number] PATHOLOGY 12/09/14 LYMPHENDECTOMY 01/19/2016 FAMILY HISTORY NO FAMILY HISTORY DOCUMENTED. SOCIAL HISTORY GENERAL: PAIN CLINIC PFS, CLERGY, PUBLIC HEALTH REFERRALS CLERGY REFERRAL NEEDED?NO WAS THE PROVIDER NOTIFIED OF ANY PERTINENT INFO?NO PFS REFERRAL NEEDED?NO PUBLIC HEALTH REFERRAL NEEDED?NO PATIENT: ____. HOSPITALIZATION/MAJOR DIAGNOSTIC PROCEDURE DEHYDRATION, [facility] 06/2013 OVERDOSE OF TRAMADOL, PULMONARY EMBOLISM 07/13 REVIEW OF SYSTEMS CONSTITUTIONAL: ANY CHANGE IN YOUR MEDICAL CONDITION? NO . CHILLS NO . FEVER NO . INFECTION: DO YOU HAVE NEW INFECTIONS? NO . DO YOU HAVE HISTORY OF MRSA? NO . MUSCULOSKELETAL: ANY NEW PATTERNS OF PAIN OR NUMBNESS? YES PT REPORTS PAIN IS NOW PRESENT IN LEFT BUTTOCKS EXTENDING DOWN LEFT LEG. THIS HAS BEEN PRESENT ABOUT A WEEK. . GASTROENTEROLOGY: ANY NEW CHANGE IN BOWEL CONTROL? NO . GENITOURINARY: ANY NEW CHANGE IN BLADDER CONTROL? NO . IS THERE A CHANCE YOU COULD BE ? NO . HEMATOLOGY/LYMPH: DO YOU TAKE ANY BLOOD THINNERS? (FOR EXAMPLE- COUMADIN, PLAVIX, AGGRENOX, PLATEL, PRADAXA, OR XARELTO) YES XARELTO . WHEN WAS YOUR LAST DOSE? DATE: TIME: . NEUROLOGY: HAVE YOU FALLEN IN THE PAST 6 MONTHS? YES PT REPORTS HER RIGHT LEG FREQUENTLY &QUOT;GIVES OUT&QUOT; AND SHE HAS FALLEN TO THE FLOOR. SEEN AT [facility] 07/21 FOR FALL, REFERRED TO [facility] [place] THIS, HAS NOT BEEN SEEN YET. . ANY NEW EXTREMITY NUMBNESS OR WEAKNESS? NO . CARDIOLOGY: DO YOU HAVE A PACEMAKER OR DEFIBRILLATOR? NO . RESPIRATORY: HAVE YOU BEEN SICK IN THE PAST WEEK? NO . FEVER NO . FLU LIKE SYMPTOMS? NO . COUGH NO . INTEGUMENTARY: DO YOU HAVE ANY RASHES OR OPEN SORES? NO . ALLERGIC/IMMUNO: ARE YOU ALLERGIC TO SHELLFISH OR IV DYE? NO . ANY NEW ALLERGIES? NO . PSYCHIATRIC: DO YOU HAVE THOUGHTS OF HURTING YOURSELF OR SOMEONE ELSE? NO . ARE YOU ABUSED, NEGLECTED, OR IN AN UNSAFE ENVIRONMENT? NO . ENDOCRINOLOGY: ARE YOU DIABETIC? NO . OTHER: DO YOU NEED ANY PRESCRIPTIONS? NO . IF YES, PLEASE LIST: ____ . ANY NEW PROBLEMS WITH YOUR MEDICATIONS? NO . WHEN DID YOU LAST EAT? ____ . WHEN DID YOU LAST DRINK? ____ . WHAT DID YOU LAST DRINK? ____ . NAME OF PERSON DRIVING YOU HOME? ____ . DO YOU HAVE ANY OTHER QUESTIONS OR CONCERNS NO . REVIEWED BY: PROVIDER: ASTRID VELEZ MD . VITAL SIGNS WT 269 LBS, HT 62 IN, BMI 49.20 INDEX, BP 133/76 MM HG, HR 75 /MIN, RR 18 /MIN, TEMP 98.2 F, OXYGEN SAT % 96, SAFE IN ENV? (Y/N) YES, NA INITIALS [id number], REVIEWED BY: GIORGIO. EXAMINATION : PATIENT IS ALERT O X 3 AND COOPERATIVE. TENDERNESS IN THE LOWER BACK AND PARASPINAL MUSCLE GROUP. PATIENT WALKS WITH ANTALGIC GAIT. LIMPING FROM RIGHT LEG. RIGHT LEG IS WEAKER THEN THE RIGHT AT EXTENSION AND FLEXION. MRI DONE ON 06/16/15 OF THE LUMBAR SPINE SHOWS FACET HYPERTROPHY AND A DISC BULGE AT L4-L5. ASSESSMENTS RADICULOPATHY OF LUMBAR REGION - M54.16 (PRIMARY) INTERVERTEBRAL DISC DISORDERS WITH RADICULOPATHY, LUMBAR REGION - M51.16 TREATMENT RADICULOPATHY OF LUMBAR REGION REFILL LYRICA CAPSULE, 150 MG, 1 CAPSULE, ORALLY FOR PAIN, THREE TIMES DAILY MDD3, 30 DAY(S), 90, REFILLS 0 REFILL TIZANIDINE HCL TABLET, 4 MG, 1 TABLET NEEDED, ORALLY, AT BEDTIME, 30 DAY(S), 30, REFILLS 1 NOTES: WHAT IS LUMBAR EPIDURAL INJECTION? MATERIAL WAS PRINTED. CLINICAL NOTES: WE DISCUSSED SEVERAL ISSUES WITH MRS. MAYNARD' PAIN MANAGEMENT CASE. AT THIS TIME THE PATIENT WILL CONTINUE WITH THE SAME MEDICATION REGIME. PATIENT DENIES ABUSE OF ANY MEDICATION, DENIES USE OF ILLEGAL SUBSTANCES, AND STATES THAT SHE IS ONLY USING THE MEDICATION FOR PAIN MANAGEMENT. URINE TOXICOLOGY REPORT DON ON 05/28/16 SHOWS CONSISTENT RESULTS WITH THE PATIENTS MEDICATION LIST. PATIENT WAS REMINDED TO BRING ALL MEDICATIONS TO EVERY VISIT. PATIENT IS A GOOD CANDIDATE FOR A LUMBAR EPIDURAL DUE TO THE DISC BULGE AND PAIN RADIATING DOWN HER LEG. WE DISCUSSED THE RISKS, BENENFITS, AND ALTNERATIVES OF THE INJECTION AND THE PATIENT WOULD LIKE TO PROCEED AT THIS TIME. INSTRUCTIONS WERE GIVEN, QUESTIONS WERE ANSWERED, PATIENT REPORTS UNDERSTANDING AND AGREES WITH THE PLAN. I, GAGAN CARRASCO, DOCUMENTED THE ABOVE INFORMATION ACTING A SCRIBE FOR DR. VELEZ. I HAVE REVIEWED THE ABOVE DOCUMENT, WRITTEN BY GAGAN JOLLEYIBManish AND I VERIFY THAT IT IS ACCURATE. OTHERS REFILL NORCO TABLET, 10-325 MG, 1 TABLET NEEDED, ORALLY, EVERY4 HRS PRN PAIN MDD=6, 30 DAY(S), 180, REFILLS 0 PROCEDURES PN WORKMANS' COMP OPINION IN YOUR OPINION, WAS THE INCIDENT THAT THE PATIENT DESCRIBED THE COMPETENT MEDICAL CAUSE OF THIS INJURY/ILLNESS? YES ARE THE PATIENT'S COMPLAINTS CONSISTENT WITH HIS/HER HISTORY OF THE INJURY/ILLNESS? YES IS THE PATIENT'S HISTORY OF THE INJURY/ILLNESS CONSISTENT WITH YOUR OBJECTIVE FINDING? YES WHAT IS THE PERCENTAGE OF TEMPORARY IMPAIRMENT? MODERATE TO MARKED = 66.7% IS THE PATIENT WORKING? NO DOCTOR ON SITE: ASTRID MARQUEZ MD PROCEDURE CODES FA211 ESTABILISHED PATIENT [facility] FACILITY CHARGE G8427 DOC MEDS VERIFIED W/PT OR RE G8730 PAIN ASSESS POS TOOL F/U PLAN DOC DISPOSITION & COMMUNICATION FOLLOW UP LESI AFTER APPROVAL ELECTRONICALLY SIGNED BY ASTRID VELEZ MD ON 08/15/2016 AT 05:29 PM EDT DISCLAIMER : THIS IS A VISIT SUMMARY EXTRACTED FROM THE [employer] CHART. IT IS NOT A COPY OF THE [employer] PROGRESS NOTE. SHIMA
== END ==
LOC: M PAIN 13:20
PROVIDERS: ATTEND Anesthesiology
DX: M54.16 Radiculopathy, lumbar region (principal); G89.29 Other chronic pain; Z79.891 Long term (current) use of opiate analgesic; Z79.899 Other long term (current) drug therapy; D50.9 Iron deficiency anemia, unspecified; F32.9 Major depressive disorder, single episode, unspecified; Z88.5 Allergy status to narcotic agent; Z88.6 Allergy status to analgesic agent; Z98.84 Bariatric surgery status

== ENCOUNTER 2016-09-07 11:06 | Emergency (ER) | payer MEDICAID, OTHER, SELFPAY ==
[~2016-09-07] VITALS: Ht 157.5 cm; Wt 122.5 kg
[2016-09-07] MEDS ORDERED: MEDR10TA PO (11:16)
[2016-09-07] MEDS ORDERED: MORPHINE 4 MG/ML 1ML SYRINGE IV PRN (12:15)
[2016-09-07] MEDS ORDERED: NS 1,000 ML IV ONE (12:15)
[2016-09-07 12:48] LABS: BASO % 0.5 % (0.0-1.0); EOS # 0.1 K/mm3 (0.0-0.50); EOS % 1.1 % (0.0-3.0); LARGE UNSTAINED CELL # 0.1 K/mm3 (0.0-0.4); LARGE UNSTAINED CELL % 1.3 % (0.0-4.0); LYMPH # 1.8 K/mm3 (1.5-4.5); LYMPH % 22.5 % (24.0-44.0); MEAN CORPUSCULAR HEMOGLOBIN 34.5 pg (27.0-33.0); MEAN CORPUSCULAR HGB CONC 33.4 g/dl (32.0-36.5); MEAN CORPUSCULAR VOLUME 103.5 fl (80.0-96.0); MONO # 0.4 K/mm3 (0.0-0.8); MONO % 4.7 % (0.0-5.0); NEUTROPHILS # 5.6 K/mm3 (1.8-7.7); NEUTROPHILS % 69.9 % (36.0-66.0); PLATELET COUNT, AUTOMATED 276 k/mm3 (150-450); RED CELL DISTRIBUTION WIDTH 12.3 % (11.5-14.5)
[2016-09-07 13:01] LABS: ANION GAP 8 MEQ/L (8-16); BLOOD UREA NITROGEN 12 MG/DL (7-18); CALCIUM LEVEL 7.9 MG/DL (8.5-10.1); CARBON DIOXIDE LEVEL 24 MEQ/L (21-32); CHLORIDE LEVEL 109 MEQ/L (98-107); CREATININE FOR GFR 0.77 MG/DL (0.55-1.02); GLOMERULAR FILTRATION RATE > 60.0 (>58); GLUCOSE, FASTING 84 MG/DL (70-105); POTASSIUM SERUM 3.8 MEQ/L (3.5-5.1); SODIUM LEVEL 141 MEQ/L (136-145)
[2016-09-07] MEDS ORDERED: HYDROmorphone HCL 1 MG/ML SYRINGE (J1170) IV ONE (14:00)
[2016-09-07] MEDS ORDERED: ZOFR4TAB3 PO (14:44)
[2016-09-07] MEDS ORDERED: NORCOTAB PO (14:44)
[2016-09-07] MEDS ORDERED: FLAG500T PO (14:44)
[2016-09-07] MEDS ORDERED: CIPR500T89 PO (14:44)
--- NOTE | 2016-09-07 15:41 | REP ---
PELVIC ULTRASOUND: Real-time sonographic evaluation of the pelvis performed utilizing transabdominal and endovaginal technique. Bladder measures 12.1 x 5.5 x 6.5 cm. Uterus has been surgically removed previously. Ovaries appear normal in size, right ovary measuring 3.1 x 3.3 x 2.7 cm and left ovary 3.2 x 1.9 x 2.2 cm. There is no evidence of ovarian torsion, with blood flow seen in each ovary with duplex Doppler evaluation, RI right ovary 0.53 and left ovary 0.47. No adnexal mass is seen. No free fluid is seen. Study is somewhat limited due to patient body habitus. IMPRESSION: Status post hysterectomy. No evidence of ovarian mass or cyst. No free fluid. No torsion. Signed by Adrian Diaz MD 09/07/2016 04:09 P
[2016-09-07 16:00] VITALS: BP 122/63
--- NOTE | 2016-09-07 16:35 | REP ---
CT ABDOMEN AND PELVIS WITHOUT CONTRAST: CT abdomen and pelvis performed without oral or IV contrast. Sagittal and coronal reconstruction images are performed. Visualized lung bases demonstrate mild fibrotic change. Liver, gallbladder, spleen, adrenals, pancreas, and kidneys are gross unremarkable. There is no evidence of an abdominal aortic aneurysm and no adenopathy is seen. There is no free air or free fluid. There is left colonic diverticulosis with thickening of this portion of the colon and surrounding streaky inflammatory changes compatible with diverticulitis. The appendix is normal. No pelvic mass is seen. Patient appears to have had a hysterectomy. Urinary bladder is grossly unremarkable. IMPRESSION: Findings consistent with left colonic diverticulitis. No free air or free fluid. Signed by Adrian Diaz MD 09/08/2016 04:52 P
[2016-09-08] MEDS ORDERED: LYRI150C PO (12:06)
[2016-09-08] MEDS ORDERED: CALC600T10 PO (12:10)
[2016-09-08] MEDS ORDERED: XARE20TA PO (12:11)
== END 2016-09-07 16:06 | disposition home or self-care (01) ==
LOC: M ED 12:21
DX: K57.32 Diverticulitis of large intestine without perforation or abscess without bleeding (principal)
CPT/HCPCS: 74176; 76830; 76856; 80048; 81001; 81025; 85025; 87086; 93976; 96374; 96375; 99283; J1170

== ENCOUNTER 2016-09-08 08:11 | Emergency (ER) | payer MEDICAID ==
[~2016-09-08] VITALS: Ht 157.5 cm; Wt 122.5 kg
[~2016-09-08 08:11] MED LIST changes: +CIPR500T89 PO; +FLAG500T PO; +MEDR10TA PO; +NORCOTAB PO; +ZOFR4TAB3 PO
[2016-09-08] MEDS ORDERED: NS 1,000 ML IV ONE (09:15)
[2016-09-08] MEDS ORDERED: ONDANSETRON 4MG/2ML VIAL (J2405) IV ONE (09:15)
[2016-09-08] MEDS: HYDROmorphone HCL 1 MG/ML SYRINGE (J1170) IV PRN ×2 (09:23→10:43)
[2016-09-08 09:27] LABS: BASO % 0.4 % (0.0-1.0); EOS # 0.1 K/mm3 (0.0-0.50); EOS % 1.3 % (0.0-3.0); LARGE UNSTAINED CELL # 0.1 K/mm3 (0.0-0.4); LARGE UNSTAINED CELL % 1.5 % (0.0-4.0); LYMPH # 1.8 K/mm3 (1.5-4.5); MEAN CORPUSCULAR HEMOGLOBIN 33.5 pg (27.0-33.0); MEAN CORPUSCULAR HGB CONC 32.4 g/dl (32.0-36.5); MEAN CORPUSCULAR VOLUME 103.4 fl (80.0-96.0); MONO # 0.4 K/mm3 (0.0-0.8); MONO % 4.3 % (0.0-5.0); NEUTROPHILS # 5.7 K/mm3 (1.8-7.7); NEUTROPHILS % 70.6 % (36.0-66.0); PLATELET COUNT, AUTOMATED 249 k/mm3 (150-450); RED CELL DISTRIBUTION WIDTH 12.1 % (11.5-14.5); WHITE BLOOD COUNT 8.1 K/mm3 (4.0-10.0)
[2016-09-08 09:35] LABS: ALBUMIN 3.3 GM/DL (3.2-5.2); ALBUMIN/GLOBULIN RATIO 0.85 (1.00-1.93); ALKALINE PHOSPHATASE 93 U/L (45-117); ALT/SGPT 18 U/L (12-78); AMYLASE 20 U/L (25-115); ANION GAP 7 MEQ/L (8-16); AST/SGOT 17 U/L (15-37); BILIRUBIN,DIRECT < 0.1 MG/DL (0.0-0.2); BILIRUBIN,TOTAL 0.3 MG/DL (0.2-1.0); BLOOD UREA NITROGEN 8 MG/DL (7-18); CARBON DIOXIDE LEVEL 22 MEQ/L (21-32); CHLORIDE LEVEL 111 MEQ/L (98-107); CREATININE FOR GFR 0.83 MG/DL (0.55-1.02); GLOMERULAR FILTRATION RATE > 60.0 (>58); GLUCOSE, FASTING 88 MG/DL (70-105); POTASSIUM SERUM 3.6 MEQ/L (3.5-5.1); SODIUM LEVEL 140 MEQ/L (136-145); TOTAL PROTEIN 7.2 GM/DL (6.4-8.2)
--- NOTE | 2016-09-08 10:11 | REP ---
ABDOMINAL SERIES: Supine erect views of the abdomen demonstrate no free air and no evidence for obstruction. No dilated small bowel loops are seen. There are metallic sutures seen in the upper abdomen. There are mild degenerative changes of the spine. An accompanying view of the chest demonstrates no acute infiltrate. Cardiomediastinal silhouette is unremarkable. IMPRESSION: No free air or obstruction. Signed by Adrian Diaz MD 09/08/2016 04:54 P
[2016-09-08] MEDS ORDERED: LYRI150C PO (12:06)
[2016-09-08] MEDS ORDERED: CALC600T10 PO (12:10)
[2016-09-08] MEDS ORDERED: XARE20TA PO (12:11)
[2016-09-08 12:35] VITALS: BP 124/67
--- NOTE | 2016-09-09 20:51 | CR ---
DATE OF CONSULTATION: 09/08/2016 REASON FOR CONSULTATION: Diverticulitis. HISTORY OF PRESENT ILLNESS: The patient is a 40-year-old female who presented emergency room on 09/07/2016 with left lower quadrant abdominal pain. She had lab work done which showed a white count of 8. She also had a CT scan which showed acute diverticulitis non complicated. She was discharged from the ER with antibiotics asked to follow up with a surgeon as an outpatient. However, she came back into the ER on 09/08/2016 due to uncontrolled pain. Vitals are all stable, afebrile. White count is still normal at 8.1. Her only complaint is the pain. Due to poor pain control the plan was to admit her and monitor in the hospital for a day or two until her pain was controlled. Therefore I was asked to evaluate for admission. The patient is a complains of this pain left lower quadrant. She has never had an the past. No prior colonoscopies. No problems with bowel movements or blood in her stool in the past. No family history of colon cancer. She has no known prior diverticulitis or even left lower quadrant pains in the past. This all started suddenly on 09/07, slight nausea with the pain. No vomiting. No bowel movements in the past 4 days and again no blood in her stool ever. PAST MEDICAL HISTORY: Migraines DVT, PE. PAST SURGICAL HISTORY: Umbilical hernia repair, gastric bypass, partial hysterectomy, tubal ligation, x2, IVC filter placement and removal, hysteroscopy, left axillary lymph node biopsy. HOME MEDS: Please med rec. ALLERGIES: BUPRENORPHINE, GABAPENTIN NSAIDS, OXYCODONE, ROFECOXIB SOCIAL HISTORY: Denies drug, alcohol, tobacco abuse. FAMILY HISTORY: Noncontributory. REVIEW OF SYSTEMS: Pertinent positives and negatives stated in HPI. PHYSICAL EXAMINATION: General: Alert and oriented x3. No acute distress. Vital signs: Stable. Temperature 99, pulse 70, respirations 16, blood pressure 124/67 , pulse ox 95% room air. HEENT: Pupils equal, round, react to light accommodation. Heart: S1-S2 regular rate and rhythm. Lungs: Clear to auscultation bilaterally. Abdomen: Soft, tender to palpation left lower quadrant. Localized guarding, nondistended. Extremities: No clubbing, cyanosis or edema. LABORATORY DATA: White count 8.1, hemoglobin of 42.3, platelets 249, potassium 3.6, lipase 79. IMAGING STUDIES: X-ray of the abdomen shows no signs of free air obstruction. ASSESSMENT/PLAN: The patient is a 40-year-old female with uncontrolled left lower quadrant pain secondary to acute diverticulitis non complicated. Recommendation was for observation with bowel rest, IV fluids and antibiotics. However, the patient would prefer to not have to stay in the hospital, she can just lay at home and tolerate the pain. She understands the course of the disease. She is agreeable to be being discharged home and continue on with her [place] 10 that she was given last evening. If her symptoms get worse or if she starts to develop any types of fevers, bloody bowel movements or increased abdominal pain she will return to the ER for evaluation. She is going to follow up me in the office in 2 weeks. In the meantime she will stay on a clear liquid diet until her pain is gone. Once her pain is gone she will go a low-residue low- fiber diet until she sees me in the office in 2 weeks. Once she sees me in the office as long as she is doing well. She will be advanced a high fiber diet. We also will schedule her for an outpatient colonoscopy in about 6 weeks to confirm that this truly is diverticulitis and will give her further directions as far as sticking to a high fiber diet for the future to help reduce her risk of recurrent attacks. SHIMA
== END 2016-09-08 12:36 | disposition home or self-care (01) ==
LOC: M ED 09:24
DX: K57.32 Diverticulitis of large intestine without perforation or abscess without bleeding (principal)
CPT/HCPCS: 74022; 80048; 80076; 81001; 82150; 83605; 83690; 85025; 96374; 96375; 99283; J1170; J2405

== ENCOUNTER → 2016-10-22 | Outpatient (CLI) | payer OTHER, MEDICAID ==
[~2016-10-22] MED LIST changes: +ABIL1TAB11 PO; -ABIL5TAB5 PO; -BACL-67 PO; +BACL1TAB9 PO; -CALC600T21 PO; +CALC600T31 PO; +CALC600T60 PO; +CIPR-249 PO; -CIPR500T89 PO; -COLA100C3 PO; +COLA100C5 PO; +LEVA1TAB2 PO; -LIDO5DIS36 TD; +LIDO5DIS41 TD; +LYRI150C PO; -MISO200T3 PO; +MISO200T56 PO; -ONDA1TAB15 PO; +ONDA4TAB5 PO; +TIZA4CAP3 PO; +TOPA1TAB PO; -TOPA25TA10 PO; -TOPA50TA7 PO; +TOPA50TA8 PO; +TOPI50TA9 PO; +VENL50TA2 PO; +VITA1CAP40 PO; -VITA50003 PO; +XARE20TA PO
== END ==
LOC: M PAIN 14:00
PROVIDERS: ATTEND Anesthesiology
DX: M54.9 Dorsalgia, unspecified (principal); Z53.21 Procedure and treatment not carried out due to patient leaving prior to being seen by health care provider

== ENCOUNTER 2016-10-28 19:04 | Emergency (ER) | payer MEDICAID, OTHER ==
[~2016-10-28] VITALS: Ht 157.5 cm; Wt 124.5 kg
[~2016-10-28 19:04] MED LIST changes: -LEVA1TAB2 PO; -TIZA4CAP3 PO; -TOPI50TA9 PO; -VENL50TA2 PO
[2016-10-28] MEDS ORDERED: KETOROLAC 30 MG/ML VIAL (J1885) IV ONE (20:15)
[2016-10-28 20:46] LABS: BASO % 0.5 % (0.0-1.0); EOS # 0.2 K/mm3 (0.0-0.50); EOS % 2.1 % (0.0-3.0); LARGE UNSTAINED CELL # 0.1 K/mm3 (0.0-0.4); LYMPH # 1.6 K/mm3 (1.5-4.5); MEAN CORPUSCULAR HEMOGLOBIN 33.4 pg (27.0-33.0); MEAN CORPUSCULAR HGB CONC 33.6 g/dl (32.0-36.5); MEAN CORPUSCULAR VOLUME 99.4 fl (80.0-96.0); MONO # 0.4 K/mm3 (0.0-0.8); MONO % 5.2 % (0.0-5.0); NEUTROPHILS # 5.2 K/mm3 (1.8-7.7); NEUTROPHILS % 70.1 % (36.0-66.0); PLATELET COUNT, AUTOMATED 301 k/mm3 (150-450); RED CELL DISTRIBUTION WIDTH 12.6 % (11.5-14.5); WHITE BLOOD COUNT 7.4 K/mm3 (4.0-10.0)
[2016-10-28 20:52] LABS: INR 1.08
[2016-10-28 21:09] LABS: ANION GAP 7 MEQ/L (8-16); BLOOD UREA NITROGEN 13 MG/DL (7-18); CALCIUM LEVEL 8.6 MG/DL (8.5-10.1); CARBON DIOXIDE LEVEL 25 MEQ/L (21-32); CHLORIDE LEVEL 108 MEQ/L (98-107); CREATININE FOR GFR 0.77 MG/DL (0.55-1.02); GLOMERULAR FILTRATION RATE > 60.0 (>58); GLUCOSE, FASTING 89 MG/DL (70-105); POTASSIUM SERUM 4.1 MEQ/L (3.5-5.1); SODIUM LEVEL 140 MEQ/L (136-145)
[2016-10-28] MEDS ORDERED: ISOVUE-370 76% 100ML VIAL (Q9967) As Ordered ONE (21:50)
--- NOTE | 2016-10-28 22:50 | REPUSA ---
CT angiogram of the chest Clinical statement: Chest pain and shortness of breath. Technique: Multiple axial CT images were obtained from the thoracic inlet through the upper abdomen a fter a bolus administration of nonionic intravenous contrast. Coronal and sagittal reconstructions we re also obtained. Comparison: 11/10/2015. Findings: The pulmonary arteries are well-opacified with contrast, with no intraluminal filling defec ts to suggest embolism. The thoracic aorta is unremarkable. Thyroid gland is within normal limits. Th ere is no thoracic lymphadenopathy. There are no pericardial or pleural effusions. The lungs are susan r. Limited imaging of the upper abdomen is unremarkable. There are no suspicious osseous lesions. Impression: Unremarkable CT examination of the chest. No evidence of pulmonary embolism.
[2016-10-28] MEDS ORDERED: MORPHINE 4 MG/ML 1ML SYRINGE IV ONE (23:30)
[2016-10-29 01:15] VITALS: BP 98/54
--- NOTE | 2016-10-29 07:37 | ECGEPIP ---
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
--- NOTE | 2016-10-29 07:41 | ECGEPIP ---
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
== END 2016-10-29 01:37 | disposition home or self-care (01) ==
LOC: M ED 19:04
DX: R07.89 Other chest pain (principal); F41.9 Anxiety disorder, unspecified; F32.9 Major depressive disorder, single episode, unspecified; K21.9 Gastro-esophageal reflux disease without esophagitis

== ENCOUNTER → 2016-11-05 | Day surgery (SDC) | payer OTHER ==
[~2016-11-05] VITALS: Ht 157.5 cm; Wt 124.3 kg
[~2016-11-05] MED LIST changes: +LEVA1TAB2 PO; +LIDOCAINE 1% MDV 20ML VIAL As Ordered ONE; +LIDOCAINE 2% INJ 100 MG/5 ML SDV (FOR ANES.) As Ordered ONE; +LR 1,000 ML IV ONE; +MIDAZOLAM INJ 2 MG/2 ML VIAL (J2250) As Ordered ONE; +ONDANSETRON 4MG/2ML VIAL (J2405) As Ordered ONE; +PROPOFOL 200 MG/20 ML VIAL As Ordered ONE; +ROCURONIUM BROMIDE 50 MG/5 ML VIAL/SYRINGE As Ordered ONE; +TIZA4CAP3 PO; +TOPI50TA9 PO; +VENL50TA2 PO; +dexameTHASONE 4 MG/ML 1ML VIAL (J1100) As Ordered ONE; +fentaNYL 100 MCG/2 ML INJECTION (J3010) As Ordered ONE
[2016-11-05 09:45] VITALS: BP 134/69
--- NOTE | 2016-11-05 13:22 | REP ---
RIGHT AXILLARY SOFT TISSUE ULTRASOUND: HISTORY: The patient was referred for needle localization under ultrasound guidance for an axillary lymph node. There is a history of benign inflammation in a contralateral left axillary lymph node which had been excised. Question adenopathy on physical exam in the right axilla. No comparison right axillary ultrasound imaging. SONOGRAPHIC FINDINGS: Right axillary sonography is performed. In the area of the right axilla which the patient describes as tender and painful, there are three normal-appearing lymph nodes seen measured as follows: 1.5 x 0.6 x 0.6, 1.0 x 0.8 x 0.8, and 1.4 x 0.8 x 1.5 cm, respectively. There are smaller lymph nodes more laterally in the axilla. These lymph nodes all have preserved hilar fatty architecture and unremarkable cortical mantels by ultrasound. The patient described an area of possible palpable abnormality elsewhere in the right axilla on the referring clinician's exam. When we scanned in this area, only normal subcutaneous fatty tissue is seen. No suspicious sonographic finding. IMPRESSION: Several normal-size, normal-appearing lymph nodes are seen. No one dominant node is seen. No mass or cyst is observed. These findings were discussed with Dr. Price and it was jointly decided not to proceed with needle localization or excisional biopsy at this time. This was reviewed with the patient who indicated her understanding and acceptance. Signed by Mikie Serrano MD 11/05/2016 04:39 P
== END ==
LOC: M SDC 09:30
PROVIDERS: ATTEND Surgery
DX: R59.0 Localized enlarged lymph nodes (principal); Z53.09 Procedure and treatment not carried out because of other contraindication

== ENCOUNTER → 2016-11-08 | Outpatient (CLI) | payer OTHER ==
[~2016-11-08] MED LIST changes: -LIDOCAINE 1% MDV 20ML VIAL As Ordered ONE; -LIDOCAINE 2% INJ 100 MG/5 ML SDV (FOR ANES.) As Ordered ONE; -LR 1,000 ML IV ONE; -MIDAZOLAM INJ 2 MG/2 ML VIAL (J2250) As Ordered ONE; -ONDANSETRON 4MG/2ML VIAL (J2405) As Ordered ONE; -PROPOFOL 200 MG/20 ML VIAL As Ordered ONE; -ROCURONIUM BROMIDE 50 MG/5 ML VIAL/SYRINGE As Ordered ONE; -dexameTHASONE 4 MG/ML 1ML VIAL (J1100) As Ordered ONE; -fentaNYL 100 MCG/2 ML INJECTION (J3010) As Ordered ONE
--- NOTE | 2016-11-23 00:32 | ECWPNPC ---
PATIENT NAME: NEYDA MAYNARD : 1975 GENDER: FEMALE VISIT DATE: 11/08/2016 DISCHARGE DATE: 11/08/16 1543 VISIT LOCKED DATE TIME: PHYSICIAN: ASTRID VELEZ PHYSICIAN PAGER NO: [phone] RESOURCE: ASTRID VELEZ REASON FOR APPOINTMENT 1. LOW BACK PAIN W/C HISTORY OF PRESENT ILLNESS HISTORY OF PRESENT ILLNESS: PAIN THE PATIENT DESCRIBES THE PAIN... 40 YEAR OLD FEMALE PATIENT WITH HISTORY OF CHRONIC LOW BACK PAIN. PATIENT DESCRIBES THE PAIN SHARP, STABBING, TENDER, THROBBING, SORE, SHOOTING, AND HAVING IT ALL THE TIME WITH A PAIN SCORE OF 8-9/10. 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 PATIENT SINCE THAT TRIED PHYSICAL THERAPY, ICE, HEAT AND OTHER METHODS BUT DID NOT FIND RELIEF FROM THEM. PATIENT IS CURRENTLY USING HYDROCODONE, LYRICA, AND TIZANIDINE WHICH SHE BELIEVES HELPS KEEP HER FUNCTIONAL AND MOBILE. PATIENT STATES THAT ANY TYPE OF ACTIVITY INCLUDING SITTING, STANDING, AND WALKING INCREASES THE PAIN IN HER LOWER BACK AND AT THIS TIME THE ONLY THING THAT HAS GIVEN HER RELIEF IS MEDICATION AND RELAXING. PATIENT DENIES UNEXPLAINABLE WEIGHT LOSS, FEVER, CHILLS, NEW CHANGES ON HIS URINARY OR BOWEL CONTROL. FALL RISK SCREENING: SCREENING :NO FALLS IN THE PAST YEAR CURRENT MEDICATIONS TAKING XARELTO 20 MG TABLET 1 TABLET WITH FOOD ORALLY DAILY TAKING TOPAMAX 50 MG TABLET 1 TABLET ORALLY TWICE A DAY TAKING MAXALT-WEB OPERATIONS LEAD 10 MG TABLET DISPERSIBLE REPEAT WITH ONE TAB IN 2 HOURS IF NO REIEF ORALLY WITH ONSET OF MIGRAINE DAILY NEEDED TAKING MIRALAX POWDER 1 PACKET MIXED WITH 8 OUNCES OF FLUID ORALLY TWICE A DAY NEEDED TAKING ZOFRAN 4 MG TABLET 1 TABLET ORALLY 4 TIMES A DAY NEEDED TAKING CALCIUM 500 MG TABLET 1 TABLET WITH MEALS ORALLY TWICE A DAY TAKING VITAMIN D3 MAXIMUM STRENGTH 5000 UNIT CAPSULE 1 CAPSULE ORALLY TWICE A DAY TAKING ABILIFY 5 MG TABLET 1 TABLET ORALLY ONCE A DAY TAKING VENLAFAXINE HCL 100 MG TABLET 3 TABLETS WITH FOOD ORALLY ONCE A DAY TAKING OMEPRAZOLE 40 MG CAPSULE DELAYED RELEASE 1 CAP ORALLY DAILY TAKING VITAMIN B-12 1000 MCG TABLET 1 TABLET ORALLY ONCE A DAY OTC TAKING MULTIVIT-IRON 1 TAB ORALLY DAILY TAKING NORCO 10-325 MG TABLET 1 TABLET NEEDED ORALLY EVERY4 HRS PRN PAIN MDD=6 TAKING LYRICA 150 MG CAPSULE 1 CAPSULE ORALLY FOR PAIN THREE TIMES DAILY MDD3 TAKING TIZANIDINE HCL 4 MG TABLET 1 TABLET NEEDED ORALLY AT BEDTIME MAY REPEAT IN 5 HRS MDD2 TAKING LASIX 20 MG TABLET 1 TABLET ORALLY ONCE A DAY NEEDED FOR EDEMA NOT-TAKING LEVOFLOXACIN 500 MG TABLET 1 TABLET ORALLY ONCE A DAY NOT-TAKING PROVENTIL HFA 108 (90 BASE) MCG/ACT AEROSOL SOLUTION 2 PUFFS NEEDED INHALATION EVERY 4 HRS PRN DYSPNEA NOT-TAKING AMBIEN 10 MG TABLET 1 TABLET AT BEDTIME NEEDED ORALLY ONCE A DAY AT BEDTIME. MDD=1, NOTES: NO LONGER TAKING NOT-TAKING TOPAMAX 50 MG TABLET TAKE ONE TABLET BY MOUTH TWO TIMES A DAY , NOTES: DUPLICATE NOT-TAKING NEXIUM 40 MG CAPSULE DELAYED RELEASE 1 CAPSULE ORALLY ONCE A DAY, NOTES: NO LONGER TAKING NOT-TAKING VITAMIN D-3 5000 UNIT TABLET 1 CAPSULE ORALLY TWICE DAILY, NOTES: DUPLICATE NOT-TAKING ABILIFY 10 MG TABLET TAKE ONE-HALF TABLET BY MOUTH EVERY DAY , NOTES: TAKING 5 MG TABLETS NOT-TAKING VENLAFAXINE HCL 100 MG TABLET 1 TABLET WITH FOOD ORALLY THREE TIMES DAILY, NOTES: DUPLICATE NOT-TAKING XARELTO 20 MG TABLET 1 TABLET WITH FOOD ORALLY ONCE A DAY, NOTES: DUPLICATE MEDICATION LIST REVIEWED AND RECONCILED WITH THE PATIENT PAST MEDICAL HISTORY GERD MIGRAINE HEADACHE, COMMON TYPE-JUNE 2009 MRI OF THE BRAIN NORMAL EXCEPT FOR 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 VELEZ GERD-JUNE 2009 EGD WITH LA GRADE A REFLUX ESOPHAGITIS AND HIATAL HERNIA GRADE 1 DIASTOLIC DYSFUNCTION BY MAY 2010 TTE-ANTECOL DEPRESSION C H/O INTENTIONAL TRAMADOL OD 06/2013 REQUIRING MECHANICAL VENTILATION H/O BILATERAL PULMONARY EMBOLI INVOLVING B CENTRAL PA 06/2013, - B LE DVT US-FAVOR 2 TO IMMOBILITY/NO HYPERCOAG W/U DONE/NO PREVIOUS VTE - FVL, PT GENE VARIANT, PROTEIN C/S LEVEL, ACL GASTRIC ULCER BY EGD [id number] RLE PARTIAL DVT POPLITEAL VEIN BY 08/02/14 US-XARELTO 15 BID BY SMCER-07/2014 -LA, NORMAL PROTEIN C/S/ATIII, -ACL, - HPP (FOR LA) POSSIBLE ROYAL-PATIENT DEFERRED NPSG EXCISION L AXILLARY LN-BY PATHOLOGY REACTIVE, - FOR MALIGNANCY C BLACK TATTOO PIGMENT-01/2016-DIAZ 04/2016 -JONY, RF, CCP 5, CRP <0.3/ESR 15 ACUTE DIVERTICULITIS-FIRST EPISODE-SEEN BY 08/2016 CT ALLERGIES NSAIDS: SWELLING: SIDE EFFECTS VIOXX: HIVES: ALLERGY NEURONTIN: HIVES: ALLERGY BUTRANS TRANSDERMAL PATCH: VOMITING/FELT DRUNK: ALLERGY OXYCODONE: NAUSEA/VOMITING: ALLERGY GABAPENTIN: DRUNK FEELING: SIDE EFFECTS SURGICAL HISTORY BTL C SECTION X 2 GASTRIC BYPASS ENDOSCOPY IVC FILTER PLACED/REMOVED-BRET 11/18/2014, [id number] PATHOLOGY 12/09/14 LYMPHENDECTOMY 01/19/2016 FAMILY HISTORY NO FAMILY HISTORY DOCUMENTED. SOCIAL HISTORY GENERAL: TOBACCO USE ARE YOU A:NONSMOKER BMI CARE GOAL FOLLOW-UP ABOVE NORMAL BMI FOLLOW-UPGIVING ENCOURAGEMENT TO EXERCISE ALCOHOL SCREENING DID YOU HAVE A DRINK CONTAINING ALCOHOL IN THE PAST YEAR?YES HOW OFTEN DID YOU HAVE A DRINK CONTAINING ALCOHOL IN THE PAST YEAR?FOUR OR MORE TIMES A WEEK (4 POINTS) HOW MANY DRINKS DID YOU HAVE ON A TYPICAL DAY WHEN YOU WERE DRINKING IN THE PAST YEAR?10 OR MORE (4 POINTS) HOW OFTEN DID YOU HAVE SIX OR MORE DRINKS ON ONE OCCASION IN THE PAST YEAR?DAILY OR ALMOST DAILY (4 POINTS) [id number] INTERPRETATIONPOSITIVE SEXUAL HX HAD SEX IN THE LAST 12 MONTHS (VAGINAL, ORAL, OR ANAL)?YES WITHMEN ONLY USE PROTECTION?NO HAVE YOU EVER HAD AN STD?YES CHLAMYDIA?YES GC?YES MARITAL STATUS: . [employer] [id number] L[employer] LANGUAGES SPOKEN:SUDANESE LEARNING BARRIERS / SPECIAL NEEDS CHANGE FROM LAST VISIT?YES BARRIERS TO LEARNING?NO HEARING IMPAIRED?NO VISION IMPAIRED?NO COGNITIVELY IMPAIRED?NO READINESS TO LEARN?YES LEARNING PREFERENCES?NO LEARNING CAPABILITIES PRESENT?YES EMOTIONAL BARRIERS?NO SPECIAL DEVICES?YES :CANE STUDENT FINANCE SPECIALIST NEEDED?NO NEW PATIENT PAIN DIARY TODAY'S VISIT NOTES, FROM 0-10, WHAT LEVEL IS YOUR PAIN TODAY? 0. PAIN CLINIC PFS, CLERGY, PUBLIC HEALTH REFERRALS HAS THE PATIENT BEEN EDUCATED REGARDING HIS/HER PLAN OF CARE?YES HAS THE PATIENT BEEN EDUCATED REGARDING PAIN, THE RISK FOR PAIN, THE IMPORTANCE OF EFFECTIVE PAIN MANAGEMENT, AND THE PAIN ASSESSMENT PROCESS?YES ADVANCE DIRECTIVES HEALTH CARE PROXY?NO WOULD YOU LIKE MORE INFORMATION?YES DO YOU HAVE A DNR?NO WOULD YOU LIKE MORE INFORMATION?NO LIVING WILL?NO WOULD YOU LIKE MORE INFORMATION?NO POWER OF POLICE LIAISON OFFICER?NO WOULD YOU LIKE MORE INFORMATION?NO HOSPITALIZATION/MAJOR DIAGNOSTIC PROCEDURE DEHYDRATION, [facility] 06/2013 OVERDOSE OF TRAMADOL, PULMONARY EMBOLISM 07/13 [facility] C SUIDICAL IDEATION/ETHOH ABUSE (DRINKING 6-12 BEERS DAILY) 08/03-08/05/16 REVIEW OF SYSTEMS REVIEWED BY: PROVIDER: ASTRID VELEZ MD . CONSTITUTIONAL: ANY CHANGE IN YOUR MEDICAL CONDITION? NO . CHILLS NO . FEVER NO . INFECTION: DO YOU HAVE NEW INFECTIONS? NO . DO YOU HAVE HISTORY OF MRSA? NO . MUSCULOSKELETAL: ANY NEW PATTERNS OF PAIN OR NUMBNESS? YES . GASTROENTEROLOGY: ANY NEW CHANGE IN BOWEL CONTROL? NO . GENITOURINARY: ANY NEW CHANGE IN BLADDER CONTROL? NO . IS THERE A CHANCE YOU COULD BE ? NO . HEMATOLOGY/LYMPH: DO YOU TAKE ANY BLOOD THINNERS? (FOR EXAMPLE- COUMADIN, PLAVIX, AGGRENOX, PLATEL, PRADAXA, OR XARELTO) YES . WHEN WAS YOUR LAST DOSE? DATE: TIME: . NEUROLOGY: HAVE YOU FALLEN IN THE PAST 6 MONTHS? YES . ANY NEW EXTREMITY NUMBNESS OR WEAKNESS? NO . CARDIOLOGY: DO YOU HAVE A PACEMAKER OR DEFIBRILLATOR? NO . RESPIRATORY: HAVE YOU BEEN SICK IN THE PAST WEEK? NO . FEVER NO . FLU LIKE SYMPTOMS? NO . COUGH NO . INTEGUMENTARY: DO YOU HAVE ANY RASHES OR OPEN SORES? NO . ALLERGIC/IMMUNO: ARE YOU ALLERGIC TO SHELLFISH OR IV DYE? NO . ANY NEW ALLERGIES? NO . PSYCHIATRIC: DO YOU HAVE THOUGHTS OF HURTING YOURSELF OR SOMEONE ELSE? NO . ARE YOU ABUSED, NEGLECTED, OR IN AN UNSAFE ENVIRONMENT? NO . ENDOCRINOLOGY: ARE YOU DIABETIC? NO . OTHER: DO YOU NEED ANY PRESCRIPTIONS? YES . IF YES, PLEASE LIST: BACLOFEN, HYDROCODONE . ANY NEW PROBLEMS WITH YOUR MEDICATIONS? NO . WHEN DID YOU LAST EAT? ____ . WHEN DID YOU LAST DRINK? ____ . WHAT DID YOU LAST DRINK? ____ . NAME OF PERSON DRIVING YOU HOME? ____ . DO YOU HAVE ANY OTHER QUESTIONS OR CONCERNS NO . VITAL SIGNS WT 274.4 LBS, HT 62 IN, BMI 50.18 INDEX, BP 132/79 MM HG, HR 82 /MIN, RR 18 /MIN, TEMP 98.297%, NA INITIALS SC 14:10, REVIEWED BY: LIO. EXAMINATION : PATIENT IS ALERT O X 3 AND COOPERATIVE. SEVERE TENDERNESS IN THE LOWER BACK AND PARASPINAL MUSCLE GROUP. PATIENT WALKS WITH ANTALGIC GAIT. LIMPING FROM RIGHT LEG. RIGHT LEG IS WEAKER THEN THE RIGHT AT EXTENSION AND FLEXION. MRI DONE ON 06/16/15 OF THE LUMBAR SPINE SHOWS FACET HYPERTROPHY AND A DISC BULGE AT L4-L5. 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 MAYNARD' PAIN MANAGEMENT CASE. AT THIS TIME THE PATIENT WILL CONTINUE WITH THE SAME MEDICATION REGIME. PATIENT USING LYRICA FOR THE NEUROPATHIC PAIN, TIZANIDINE FOR THE MUSCLE SPASMS, AND NORCO FOR THE SOMATIC PAIN. MRS. MAYNARD STATES THAT WITHOUT THE MEDICATION SHE WOULD NOT BE FUNCTIONAL. PATIENT DENIES ABUSE OF ANY MEDICATION, DENIES USE OF ILLEGAL SUBSTANCES, AND STATES THAT SHE IS ONLY USING THE MEDICATION FOR PAIN MANAGEMENT. URINE TOXICOLOGY REPORT DON ON 05/28/16 SHOWS CONSISTENT RESULTS WITH THE PATIENTS MEDICATION LIST. PATIENT WAS REMINDED TO BRING ALL MEDICATIONS TO EVERY VISIT. PATIENT IS A GOOD CANDIDATE FOR A LUMBAR EPIDURAL DUE TO THE DISC BULGE AND PAIN RADIATING DOWN HER LEG. WE DISCUSSED THE RISKS, BENENFITS, AND ALTNERATIVES OF THE INJECTION AND THE PATIENT WOULD LIKE TO PROCEED AT THIS TIME. PATIENT IS AWARE THAT SHE SHOULD TRY USING LESS MEDICATION IF THE INJECTION AIDS IN PAIN RELIEF. INSTRUCTIONS WERE GIVEN, QUESTIONS WERE ANSWERED, PATIENT REPORTS UNDERSTANDING AND AGREES WITH THE PLAN. I, GAGAN CARRASCO, DOCUMENTED THE ABOVE INFORMATION ACTING A SCRIBE FOR DR. VELEZ. I HAVE REVIEWED THE ABOVE DOCUMENT, WRITTEN BY GAGAN FALL AND I VERIFY THAT IT IS ACCURATE. OSTEOARTHRITIS OF SPINE WITH RADICULOPATHY, LUMBAR REGION REFILL LYRICA CAPSULE, 150 MG, 1 CAPSULE, ORALLY FOR PAIN, THREE TIMES DAILY MDD3, 30 DAY(S), 90, REFILLS 0 REFILL NORCO TABLET, 10-325 MG, 1 TABLET NEEDED, ORALLY, EVERY4 HRS PRN PAIN MDD=6, 30 DAY(S), 180, REFILLS 0 REFILL TIZANIDINE HCL TABLET, 4 MG, 1 TABLET NEEDED, ORALLY, AT BEDTIME MAY REPEAT IN 5 HRS MDD2, 30 DAY(S), 50, REFILLS 1 PROCEDURES PN WORKMANS' COMP OPINION IN YOUR OPINION, WAS THE INCIDENT THAT THE PATIENT DESCRIBED THE COMPETENT MEDICAL CAUSE OF THIS INJURY/ILLNESS? YES ARE THE PATIENT'S COMPLAINTS CONSISTENT WITH HIS/HER HISTORY OF THE INJURY/ILLNESS? YES IS THE PATIENT'S HISTORY OF THE INJURY/ILLNESS CONSISTENT WITH YOUR OBJECTIVE FINDING? YES WHAT IS THE PERCENTAGE OF TEMPORARY IMPAIRMENT? MODERATE TO MARKED = 66.7% IS THE PATIENT WORKING? NO DOCTOR ON SITE: ASTRID MARQUEZ MD PROCEDURE CODES FA211 ESTABILISHED PATIENT [facility] CHARGE G8427 DOC MEDS VERIFIED W/PT OR RE G8730 PAIN ASSESS POS TOOL F/U PLAN DOC DISPOSITION & COMMUNICATION FOLLOW UP LESI AFTER APPROVAL ELECTRONICALLY SIGNED BY ASTRID VELEZ MD ON 11/22/2016 AT 08:39 PM EDT DISCLAIMER : THIS IS A VISIT SUMMARY EXTRACTED FROM THE [employer] CHART. IT IS NOT A COPY OF THE [employer] PROGRESS NOTE. MTDD
== END ==
LOC: M PAIN 14:40
PROVIDERS: ATTEND Anesthesiology
DX: M54.16 Radiculopathy, lumbar region (principal); G89.29 Other chronic pain; Z79.891 Long term (current) use of opiate analgesic; Z79.899 Other long term (current) drug therapy; Z88.8 Allergy status to other drugs, medicaments and biological substances; Z88.5 Allergy status to narcotic agent

== ENCOUNTER 2016-11-11 11:01 | Emergency (ER) | payer OTHER ==
[~2016-11-11] VITALS: Ht 157.5 cm; Wt 123.1 kg
[~2016-11-11 11:01] MED LIST changes: -LEVA1TAB2 PO; -TIZA4CAP3 PO; -TOPI50TA9 PO; -VENL50TA2 PO
[2016-11-11] MEDS ORDERED: VENL50TA2 PO (11:15)
[2016-11-11] MEDS ORDERED: HYDR-3719 PO (11:15)
--- NOTE | 2016-11-11 13:47 | REP ---
Duplex extremity venous ultrasound: Left lower extremity. History: Left lower extremity pain. Findings: The deep veins are anechoic and fully compressible from the groin to the popliteal fossa in the left lower extremity. Color flow imaging is homogeneous. Spectral Doppler interrogation demonstrates intact respiratory variation in flow and normal manual augmentation of flow. There is no evidence of deep vein thrombosis. Impression: Negative left lower extremity duplex venous ultrasound. No evidence of deep vein thrombosis. Signed by Mikie Serrano MD 11/11/2016 01:39 P
[2016-11-11 13:54] VITALS: BP 136/77
--- NOTE | 2016-11-11 14:00 | REP ---
LEFT KNEE SERIES: Five views of the left knee are performed and demonstrate no fracture or dislocation. There is mild diffuse joint space narrowing and spurring. I do not see a significant joint effusion. IMPRESSION: Mild diffuse degenerative changes without evidence of fracture or dislocation. Signed by Adrian Diaz MD 11/11/2016 03:58 P
== END 2016-11-11 14:01 | disposition home or self-care (01) ==
LOC: M ED 11:01
DX: M25.462 Effusion, left knee (principal); Z86.718 Personal history of other venous thrombosis and embolism; Z79.01 Long term (current) use of anticoagulants

== ENCOUNTER → 2016-11-23 | Outpatient (CLI) | payer OTHER ==
[~2016-11-23] MED LIST changes: +ISOVUE-M 300 61% 15ML VIAL (Q9967) As Ordered ONE; +LEVA1TAB2 PO; +LIDOCAINE 1% SDV INJ 30 ML VIAL As Ordered ONE; +TIZA4CAP3 PO; +TOPI50TA9 PO; +VENL50TA2 PO; +diazePAM 5 MG TAB As Ordered ONE; +methylPREDNISolone SUSP 40 MG/ML (DEPO-medrol) VIAL (J1030) As Ordered ONE; +oxyCODONE 5MG TAB As Ordered ONE
--- NOTE | 2016-11-23 17:43 | REP ---
FLUOROSCOPIC GUIDED SPINAL INJECTION: The films were reviewed with Dr. Diaz. The patient has a history of numbness and tingling in the legs bilaterally. The portable C-ARM was provided in the OR by Dr. Dyson for fluoroscopic guidance. 1 intraoperative fluoroscopic spot film was obtained for needle placement verification for lumbar epidural injection. The film is on the PACS system and is available for review. 5 seconds of fluoroscopic time was utilized for this procedure. Reviewed by LEIGHANN Breaux 11/24/2016 01:43 PEdited and Signed by Adrian Diaz MD 11/25/2016 05:39 P
--- NOTE | 2016-12-09 00:16 | ECWPNPC ---
PATIENT NAME: NEYDA MAYNARD : 1975 GENDER: FEMALE VISIT DATE: 11/23/2016 DISCHARGE DATE: 11/23/16 1315 VISIT LOCKED DATE TIME: PHYSICIAN: ASTRID VELEZ PHYSICIAN PAGER NO: [phone] RESOURCE: ASTRID VELEZ REASON FOR APPOINTMENT 1. LESI HISTORY OF PRESENT ILLNESS HISTORY OF PRESENT ILLNESS: PAIN THE PATIENT DESCRIBES THE PAIN... FALL RISK SCREENING: SCREENING :NO FALLS IN THE PAST YEAR CURRENT MEDICATIONS TAKING LYRICA 150 MG CAPSULE 1 CAPSULE ORALLY FOR PAIN THREE TIMES DAILY MDD3, NOTES: 11/22/162099 TAKING NORCO 10-325 MG TABLET 1 TABLET NEEDED ORALLY EVERY4 HRS PRN PAIN MDD=6, NOTES: 11/23/16 0600 TAKING TIZANIDINE HCL 4 MG TABLET 1 TABLET NEEDED ORALLY AT BEDTIME MAY REPEAT IN 5 HRS MDD2, NOTES: 11/22/16 2300 TAKING XARELTO 20 MG TABLET 1 TABLET WITH FOOD ORALLY DAILY, NOTES: 11/18/16 183 TAKING TOPAMAX 50 MG TABLET 1 TABLET ORALLY TWICE A DAY, NOTES: 11/22/16 1000 TAKING [place] 10 MG TABLET DISPERSIBLE REPEAT WITH ONE TAB IN 2 HOURS IF NO REIEF ORALLY WITH ONSET OF MIGRAINE DAILY NEEDED, NOTES: 10 DAYS AGO TAKING MIRALAX POWDER 1 PACKET MIXED WITH 8 OUNCES OF FLUID ORALLY TWICE A DAY NEEDED, NOTES: MORE THAN A WEEK TAKING ZOFRAN 4 MG TABLET 1 TABLET ORALLY 4 TIMES A DAY NEEDED, NOTES: 11/22/162099 TAKING CALCIUM 500 MG TABLET 1 TABLET WITH MEALS ORALLY TWICE A DAY, NOTES: 11/22/161899 TAKING VITAMIN D3 MAXIMUM STRENGTH 5000 UNIT CAPSULE 1 CAPSULE ORALLY TWICE A DAY, NOTES: 11/22/161899 TAKING ABILIFY 5 MG TABLET 1 TABLET ORALLY ONCE A DAY, NOTES: 11/22/162099 TAKING VENLAFAXINE HCL 100 MG TABLET 3 TABLETS WITH FOOD ORALLY ONCE A DAY, NOTES: 11/22/162099 TAKING OMEPRAZOLE 40 MG CAPSULE DELAYED RELEASE 1 CAP ORALLY DAILY, NOTES: 11/22/16899 TAKING VITAMIN B-12 1000 MCG TABLET 1 TABLET ORALLY ONCE A DAY OTC, NOTES: 11/22/16899 TAKING MULTIVIT-IRON 1 TAB ORALLY DAILY, NOTES: 7/24/17 0900 TAKING LASIX 20 MG TABLET 1 TABLET ORALLY ONCE A DAY NEEDED FOR EDEMA, NOTES: NONE RECENTLY NOT-TAKING LEVOFLOXACIN 500 MG TABLET 1 TABLET ORALLY ONCE A DAY NOT-TAKING PROVENTIL HFA 108 (90 BASE) MCG/ACT AEROSOL SOLUTION 2 PUFFS NEEDED INHALATION EVERY 4 HRS PRN DYSPNEA NOT-TAKING AMBIEN 10 MG TABLET 1 TABLET AT BEDTIME NEEDED ORALLY ONCE A DAY AT BEDTIME. MDD=1, NOTES: NO LONGER TAKING NOT-TAKING TOPAMAX 50 MG TABLET TAKE ONE TABLET BY MOUTH TWO TIMES A DAY , NOTES: DUPLICATE NOT-TAKING NEXIUM 40 MG CAPSULE DELAYED RELEASE 1 CAPSULE ORALLY ONCE A DAY, NOTES: NO LONGER TAKING NOT-TAKING VITAMIN D-3 5000 UNIT TABLET 1 CAPSULE ORALLY TWICE DAILY, NOTES: DUPLICATE NOT-TAKING ABILIFY 10 MG TABLET TAKE ONE-HALF TABLET BY MOUTH EVERY DAY , NOTES: TAKING 5 MG TABLETS NOT-TAKING VENLAFAXINE HCL 100 MG TABLET 1 TABLET WITH FOOD ORALLY THREE TIMES DAILY, NOTES: DUPLICATE NOT-TAKING XARELTO 20 MG TABLET 1 TABLET WITH FOOD ORALLY ONCE A DAY, NOTES: DUPLICATE MEDICATION LIST REVIEWED AND RECONCILED WITH THE PATIENT PAST MEDICAL HISTORY GERD MIGRAINE HEADACHE, COMMON TYPE-JUNE 2009 MRI OF THE BRAIN NORMAL EXCEPT FOR 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 VELEZ GERD-JUNE 2009 EGD WITH LA GRADE A REFLUX ESOPHAGITIS AND HIATAL HERNIA GRADE 1 DIASTOLIC DYSFUNCTION BY MAY 2010 TTE-ANTECOL DEPRESSION C H/O INTENTIONAL TRAMADOL OD 06/2013 REQUIRING MECHANICAL VENTILATION H/O BILATERAL PULMONARY EMBOLI INVOLVING B CENTRAL PA 06/2013, - B LE DVT US-FAVOR 2 TO IMMOBILITY/NO HYPERCOAG W/U DONE/NO PREVIOUS VTE - FVL, PT GENE VARIANT, PROTEIN C/S LEVEL, ACL GASTRIC ULCER BY EGD [id number] RLE PARTIAL DVT POPLITEAL VEIN BY 08/02/14 US-XARELTO 15 BID BY [facility]-07/2014 -LA, NORMAL PROTEIN C/S/ATIII, -ACL, - HPP (FOR LA) POSSIBLE ROYAL-PATIENT DEFERRED NPSG EXCISION L AXILLARY LN-BY PATHOLOGY REACTIVE, - FOR MALIGNANCY C BLACK TATTOO PIGMENT-01/2016-DIAZ 04/2016 -JONY, RF, CCP 5, CRP <0.3/ESR 15 ACUTE DIVERTICULITIS-FIRST EPISODE-SEEN BY 08/2016 CT ALLERGIES NSAIDS: SWELLING: SIDE EFFECTS VIOXX: HIVES: ALLERGY NEURONTIN: HIVES: ALLERGY BUTRANS TRANSDERMAL PATCH: VOMITING/FELT DRUNK: ALLERGY GABAPENTIN: DRUNK FEELING: SIDE EFFECTS SURGICAL HISTORY BTL C SECTION X 2 GASTRIC BYPASS ENDOSCOPY IVC FILTER PLACED/REMOVED-BRET 11/18/2014, [id number] PATHOLOGY 12/09/14 LYMPHENDECTOMY 01/19/2016 SOCIAL HISTORY GENERAL: TOBACCO USE ARE YOU A:NONSMOKER BMI CARE GOAL FOLLOW-UP ABOVE NORMAL BMI FOLLOW-UPGIVING ENCOURAGEMENT TO EXERCISE ALCOHOL SCREENING DID YOU HAVE A DRINK CONTAINING ALCOHOL IN THE PAST YEAR?YES HOW OFTEN DID YOU HAVE A DRINK CONTAINING ALCOHOL IN THE PAST YEAR?FOUR OR MORE TIMES A WEEK (4 POINTS) HOW MANY DRINKS DID YOU HAVE ON A TYPICAL DAY WHEN YOU WERE DRINKING IN THE PAST YEAR?10 OR MORE (4 POINTS) HOW OFTEN DID YOU HAVE SIX OR MORE DRINKS ON ONE OCCASION IN THE PAST YEAR?DAILY OR ALMOST DAILY (4 POINTS) [id number] INTERPRETATIONPOSITIVE SEXUAL HX HAD SEX IN THE LAST 12 MONTHS (VAGINAL, ORAL, OR ANAL)?YES WITHMEN ONLY USE PROTECTION?NO HAVE YOU EVER HAD AN STD?YES CHLAMYDIA?YES GC?YES MARITAL STATUS: . CHRISTIANITY [id number] JEWISH LANGUAGE LANGUAGES SPOKEN:HONG KONGER LEARNING BARRIERS / SPECIAL NEEDS CHANGE FROM LAST VISIT?YES BARRIERS TO LEARNING?NO HEARING IMPAIRED?NO VISION IMPAIRED?NO COGNITIVELY IMPAIRED?NO READINESS TO LEARN?YES LEARNING PREFERENCES?NO LEARNING CAPABILITIES PRESENT?YES EMOTIONAL BARRIERS?NO SPECIAL DEVICES?YES :CANE DIAMOND SAW OPERATOR NEEDED?NO NEW PATIENT PAIN DIARY TODAY'S VISIT NOTES, FROM 0-10, WHAT LEVEL IS YOUR PAIN TODAY? 0. PAIN CLINIC PFS, CLERGY, PUBLIC HEALTH REFERRALS HAS THE PATIENT BEEN EDUCATED REGARDING HIS/HER PLAN OF CARE?YES HAS THE PATIENT BEEN EDUCATED REGARDING PAIN, THE RISK FOR PAIN, THE IMPORTANCE OF EFFECTIVE PAIN MANAGEMENT, AND THE PAIN ASSESSMENT PROCESS?YES ADVANCE DIRECTIVES HEALTH CARE PROXY?NO WOULD YOU LIKE MORE INFORMATION?YES DO YOU HAVE A DNR?NO WOULD YOU LIKE MORE INFORMATION?NO LIVING WILL?NO WOULD YOU LIKE MORE INFORMATION?NO POWER OF RAFTER CUTTING MACHINE OPERATOR?NO WOULD YOU LIKE MORE INFORMATION?NO HOSPITALIZATION/MAJOR DIAGNOSTIC PROCEDURE DEHYDRATION, [facility] 06/2013 OVERDOSE OF TRAMADOL, PULMONARY EMBOLISM 07/13 [facility] [place]-MDD C SUIDICAL IDEATION/ETHOH ABUSE (DRINKING 6-12 BEERS DAILY) 08/03-08/05/16 REVIEW OF SYSTEMS REVIEWED BY: PROVIDER: . CONSTITUTIONAL: ANY CHANGE IN YOUR MEDICAL CONDITION? NO . CHILLS NO . FEVER NO . INFECTION: DO YOU HAVE NEW INFECTIONS? NO . DO YOU HAVE HISTORY OF MRSA? NO . MUSCULOSKELETAL: ANY NEW PATTERNS OF PAIN OR NUMBNESS? NO . GASTROENTEROLOGY: ANY NEW CHANGE IN BOWEL CONTROL? NO . GENITOURINARY: ANY NEW CHANGE IN BLADDER CONTROL? NO . IS THERE A CHANCE YOU COULD BE ? NO . HEMATOLOGY/LYMPH: DO YOU TAKE ANY BLOOD THINNERS? (FOR EXAMPLE- COUMADIN, PLAVIX, AGGRENOX, PLATEL, PRADAXA, OR XARELTO) NO . WHEN WAS YOUR LAST DOSE? DATE: TIME: . NEUROLOGY: HAVE YOU FALLEN IN THE PAST 6 MONTHS? NO . ANY NEW EXTREMITY NUMBNESS OR WEAKNESS? NO . CARDIOLOGY: DO YOU HAVE A PACEMAKER OR DEFIBRILLATOR? NO . RESPIRATORY: HAVE YOU BEEN SICK IN THE PAST WEEK? NO . FEVER NO . FLU LIKE SYMPTOMS? NO . COUGH NO . INTEGUMENTARY: DO YOU HAVE ANY RASHES OR OPEN SORES? NO . ALLERGIC/IMMUNO: ARE YOU ALLERGIC TO SHELLFISH OR IV DYE? NO . ANY NEW ALLERGIES? NO . PSYCHIATRIC: DO YOU HAVE THOUGHTS OF HURTING YOURSELF OR SOMEONE ELSE? NO . ARE YOU ABUSED, NEGLECTED, OR IN AN UNSAFE ENVIRONMENT? NO . ENDOCRINOLOGY: ARE YOU DIABETIC? NO . OTHER: DO YOU NEED ANY PRESCRIPTIONS? NO . IF YES, PLEASE LIST: ____ . ANY NEW PROBLEMS WITH YOUR MEDICATIONS? NO . WHEN DID YOU LAST EAT? 1999 . WHEN DID YOU LAST DRINK? 2229 . WHAT DID YOU LAST DRINK? WATER . NAME OF PERSON DRIVING YOU HOME? NEVIN PRESTON . DO YOU HAVE ANY OTHER QUESTIONS OR CONCERNS NO . VITAL SIGNS WT 244.4 LBS, HT 62 IN, BMI 44.70 INDEX, BP 128/69 MM HG, HR 70 /MIN, RR 16 /MIN, TEMP 97.7 F, OXYGEN SAT % 100%, NA INITIALS TL 1122, REVIEWED BY: LSPT WAS WEIGHED ON [facility] WEIGHT SCALE TODAY- TL. ASSESSMENTS INTERVERTEBRAL DISC DISORDERS WITH RADICULOPATHY, LUMBAR REGION - M51.16 (PRIMARY) PROCEDURES PRE PROCEDURE DIAGNOSIS LUMBAR DISC DISORDER WITH RADICULOPATHY POST PROCEDURE DIAGNOSIS LUMBAR DISC DISORDER WITH RADICULOPATHY PROCEDURE LUMBAR EPIDURAL STEROID INJECTION UNDER FLUOROSCOPIC GUIDANCE SURGEON DR. ASTRID VELEZ EMR ANALYST NONE ANESTHESIA LOCAL PRE PROCEDURE NOTE THE PATIENT HAS A HISTORY OF CHRONIC LOW BACK PAIN. I EVALUATE THE PATIENT AND REVIEWED THE CHART. I WENT OVER THE RISKS, ALTERNATIVES, AND BENEFITS ASSOCIATED WITH THIS PROCEDURE. THE PATIENT WOULD LIKE TO PROCEED AND GIVE CONSENT TO PERFORMED THE PROCEDURE. THE PATIENT DENIES UNEXPLAINABLE WEIGHT LOSS, FEVER, CHILLS, OR NEW CHANGES IN URINARY OR BOWEL CONTROL DESCRIPTION OF PROCEDURE THE PATIENT WAS BROUGHT TO THE PROCEDURE ROOM AND PLACED IN THE PRONE POSITION. THE LUMBOSACRAL AREA WAS CLEANED WITH BETADINE SOLUTION AND DRAPED ASEPTICALLY. THE PROCEDURE WAS DONE UNDER STERILE CONDITIONS. I CHECKED LATERALITY AND THE LEVEL WHERE THE PROCEDURE WAS GOING TO BE PERFORMED WITH THE PATIENT AND THE SUPPORTING STAFF AT THE MOMENT OF THE TIME OUT IN THE PROCEDURE ROOM. UNDER FLUOROSCOPIC GUIDANCE, THE TARGET POINT WAS SELECTED AT THE INTERLAMINAR LEVEL OF L4-L5. LIDOCAINE WAS USED TO NUMB THE SKIN AND THE SUBCUTANEOUS TISSUE BELOW IT. EPIDURAL TUOHY NEEDLE, 17-GAUGE, WAS ADVANCED UNDER FLUOROSCOPIC GUIDANCE AND FOLLOWING PATIENT FEEDBACK UNTIL THE EPIDURAL SPACE WAS REACHED, 7 CM DEEP INTO THE SKIN BY THE LOSS OF RESISTANCE TECHNIQUE. ISOVUE M DYE 30%, 0.25 ML, WAS INJECTED SHOWING ADEQUATE SPREAD OF THE DYE. THEN, A SOLUTION OF 3 ML OF NORMAL SALINE WITH DEPO-MEDROL 60 MG WAS INJECTED SLOWLY FOLLOWING PATIENT FEEDBACK. THERE WAS NO EVIDENCE OF BLOOD, PARESTHESIA OR CEREBROSPINAL FLUID DURING THE PROCEDURE. THE PATIENT WAS SENT TO THE RECOVERY ROOM. THE PATIENT WAS MOVING THE EXTREMITIES AND DOING WELL. THERE WAS NO COMPLICATION DURING THE PROCEDURE. FLUOROSCOPY TIME WAS 5 SECONDS POST PROCEDURE NOTE THE PATIENT WILL BE SEEN IN A FOLLOW UP IN THE NEXT FEW WEEKS. INSTRUCTIONS WERE GIVEN, QUESTIONS WERE ANSWERED, AND THE PATIENT EXPRESSED UNDERSTANDING AND AGREES WITH THE PLAN. I, GAGAN CARRASCO, DOCUMENTED THE ABOVE INFORMATION ACTING A SCRIBE FOR DR. VELEZ. I, DR. VELEZ, HAVE REVIEWED THE ABOVE DOCUMENT, SCRIBED BY GAGAN CARRASCO, AND I VERIFY THAT IT IS ACCURATE DIAGNOSTIC IMAGING [facility] FLUORO GUIDE SPINE INJECTION (PAIN)[id number] PROCEDURE CODES 86419 LUMBAR/SACRAL W/ IMAGING 6045F RADXPS IN END [id number] PXD DISPOSITION & COMMUNICATION FOLLOW UP 3 WEEKS ELECTRONICALLY SIGNED BY ASTRID VELEZ MD ON 12/07/2016 AT 11:18 PM EDT DISCLAIMER : THIS IS A VISIT SUMMARY EXTRACTED FROM THE [employer] CHART. IT IS NOT A COPY OF THE [employer] PROGRESS NOTE. MTDD
== END ==
LOC: M PAIN 10:20
PROVIDERS: ATTEND Anesthesiology
DX: G89.29 Other chronic pain (principal); M51.16 Intervertebral disc disorders with radiculopathy, lumbar region; K21.9 Gastro-esophageal reflux disease without esophagitis; I82.409 Acute embolism and thrombosis of unspecified deep veins of unspecified lower extremity; K27.9 Peptic ulcer, site unspecified, unspecified as acute or chronic, without hemorrhage or perforation; E55.9 Vitamin D deficiency, unspecified; G43.009 Migraine without aura, not intractable, without status migrainosus; D50.9 Iron deficiency anemia, unspecified; F32.9 Major depressive disorder, single episode, unspecified; E66.01 Morbid (severe) obesity due to excess calories; Z68.41 Body mass index [BMI] 40.0-44.9, adult; Z88.8 Allergy status to other drugs, medicaments and biological substances; Z79.899 Other long term (current) drug therapy; Z79.891 Long term (current) use of opiate analgesic; Z98.84 Bariatric surgery status
CPT/HCPCS: 62323; J1030; Q9967

== ENCOUNTER 2016-12-12 12:41 | Inpatient (IN) | payer OTHER ==
[~2016-12-12] VITALS: Ht 157.5 cm; Wt 126.8 kg
[2016-12-12] MEDS: PANTOPRAZOLE 40MG INJ (PROTONIX) (C9113) IV SCH (09:00)
[~2016-12-12 12:41] MED LIST changes: -ISOVUE-M 300 61% 15ML VIAL (Q9967) As Ordered ONE; -LEVA1TAB2 PO; -LIDOCAINE 1% SDV INJ 30 ML VIAL As Ordered ONE; -TIZA4CAP3 PO; -TOPI50TA9 PO; -diazePAM 5 MG TAB As Ordered ONE; -methylPREDNISolone SUSP 40 MG/ML (DEPO-medrol) VIAL (J1030) As Ordered ONE; -oxyCODONE 5MG TAB As Ordered ONE
[2016-12-12] MEDS ORDERED: NS 1,000 ML IV SCH ×2 (12:52→16:30)
[2016-12-12] MEDS ORDERED: OMEP40CA2 PO (12:55)
[2016-12-12] MEDS ORDERED: TIZA4CAP3 PO (12:56)
[2016-12-12] MEDS ORDERED: NS 1,000 ML IV ONE ×3 (13:00→23:30)
[2016-12-12] MEDS ORDERED: ACETAMINOPHEN TAB 650MG DOSE (2X325MG) PO ONE (13:00)
[2016-12-12] MEDS ORDERED: ONDANSETRON 4MG/2ML VIAL (J2405) IV ONE (13:00)
[2016-12-12 13:21] LABS: ADD MANUAL DIFFER YES; MEAN CORPUSCULAR HGB CONC 33.6 g/dl (32.0-36.5); MEAN CORPUSCULAR VOLUME 101.1 fl (80.0-96.0); PLATELET COUNT, AUTOMATED 288 k/mm3 (150-450); RED CELL DISTRIBUTION WIDTH 13.3 % (11.5-14.5); WHITE BLOOD COUNT 6.8 K/mm3 (4.0-10.0)
[2016-12-12 13:25] LABS: INR 1.19
[2016-12-12] MEDS: KCL 20MEQ in NS 1000ML 1,000 ML IV SCH ×2 (13:30→22:07)
--- NOTE | 2016-12-12 13:34 | ECGEPIP ---
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
[2016-12-12 13:36] LABS: ALBUMIN 3.4 GM/DL (3.2-5.2); ALBUMIN/GLOBULIN RATIO 0.83 (1.00-1.93); BILIRUBIN,DIRECT 0.1 MG/DL (0.0-0.2); BILIRUBIN,TOTAL 0.6 MG/DL (0.2-1.0); CALCIUM LEVEL 7.9 MG/DL (8.5-10.1); CREATININE FOR GFR 1.24 MG/DL (0.55-1.02); GLOMERULAR FILTRATION RATE 50.5 (>58); TOTAL PROTEIN 7.5 GM/DL (6.4-8.2)
[2016-12-12] MEDS ORDERED: ISOVUE-370 76% 100ML VIAL (Q9967) As Ordered ONE (13:49)
[2016-12-12 13:54] LABS: ANISOCYTOSIS 1+; BANDS 12 % (< 11)
[2016-12-12] MEDS ORDERED: POTASSIUM CHLORIDE 10 MEQ SR TABLET PO ONE (14:00)
[2016-12-12 14:04] LABS: MAGNESIUM LEVEL 1.3 MG/DL (1.8-2.4)
[2016-12-12] MEDS: MAG SULF 1GM/100ML (MAG RUN) 1 GM in APPROPRIATE DILUENT 1 EA IV SCH ×2 (14:30→23:51)
--- NOTE | 2016-12-12 14:38 | REP ---
CT of the abdomen and pelvis with IV contrast, without bowel contrast: Comparison is 09/07/2016. The visualized lung zepeda are unremarkable. The hepatic parenchyma, gallbladder, pancreas and spleen are unremarkable. There are surgical clips in the upper abdomen compatible with bariatric surgery, unchanged. The adrenals, kidneys and abdominal aorta are unremarkable. There is diverticulosis of the descending colon and sigmoid colon without CT evidence of diverticulitis. There is mild distension of small bowel loops, nonspecific, possibly mild ileus. There is a hysterectomy. Vaginal cuff is unremarkable. The adnexa are unremarkable. I suspect there is a persisting ovary on the left, unremarkable. There is no ascites or adenopathy. Impression: Mild small bowel distension, possibly ileus. No ascites or adenopathy. Diverticulosis without diverticulitis. Bariatric surgery. Hysterectomy. Signed by Adrian Forbes MD 12/12/2016 02:29 P
[2016-12-12] MEDS ORDERED: HYDROmorphone HCL 1 MG/ML SYRINGE (J1170) IV ONE (14:45)
[2016-12-12] MEDS ORDERED: metroNIDAZOLE 500 MG in APPROPRIATE DILUENT 1 EA IV ONE (14:45)
[2016-12-12] MEDS ORDERED: VENL100T PO (14:53)
[2016-12-12] MEDS ORDERED: TOPI50TA9 PO (14:53)
[2016-12-12] MEDS ORDERED: HYDR-3719 PO (14:53)
[2016-12-12] MEDS ORDERED: LevoFLOXacin IV 500 MG in APPROPRIATE DILUENT 1 EA IV ONE (15:00)
[2016-12-12] MEDS ORDERED: MORPHINE 2 MG/ML 1ML SYRINGE IV PRN (16:15)
[2016-12-12] MEDS ORDERED: LIDOCAINE 2% INJ 100 MG/5 ML SDV (FOR ANES.) As Ordered ONE (16:48)
[2016-12-12] MEDS ORDERED: BUPIVACAINE/EPIN 0.25% 30 ML VIAL As Ordered ONE (16:48)
--- NOTE | 2016-12-12 16:48 | HPEPDOC ---
General Date of Admission 12/12/16 Primary Care Physician: Zack Galindo M.D. Attending Physician: SUN DE LA CRUZ MD Chief Complaint The patient is a 41-year-old female admitted with a reason for visit of nausea. Source: Patient Exam Limitations: No limitations Timing/Duration: Constant, Getting worse, Other (started last night) Severity: Severe Associated Symptoms: Fever, Malaise, Nausea, Vomiting, Other (watery diarrhea) History of Present Illness This is a 51-year-old patient of Dr. Galindo who has a history of recurrent deep venous thrombosis, currently on Xarelto, morbid obesity, status post gastric bypass who presented to the ER 12/12/2016 with acute onset of abdominal pain which started last night when she was washing dishes. Patient states that she had sudden left lower quadrant pain which was aching and 7 out of 10. Nothing seemed to relieve the pain, however she developed diarrhea soon after. She has not had any relief from stooling. She's noted some mucus in the stool, but denies blood in the stool. She denies eating any undercooked beef or poultry. She denies exposure to on clean water sources, such as camp. In addition to abdominal pain, patient developed fever and "just doesn't feel right." Home Medications Scheduled Calcium (Calcium) 600 Mg Tab, 600 MG PO DAILY, (Reported) Cholecalciferol (Vitamin D) 5,000 Unit Tab, 5,000 UNIT PO BID for SUPPLEMENT, ( Reported) Cyanocobalamin (B-12) 1,000 Mcg Tab, 1,000 MCG PO DAILY for SUPPLEMENT, ( Reported) Medroxyprogesterone Acetate (Medroxyprogesterone Aceta) 10 Mg Tab, 10 MG PO DAILY, (Reported) Multivitamins/ ( Forte) 1 Tab Tab, 1 TAB PO DAILY for SUPPLEMENT , (Reported) Omeprazole (Omeprazole) 40 Mg Cap, 40 MG PO DAILY, (Reported) Pregabalin (Lyrica) 150 Mg Cap, 150 MG PO TID, (Reported) Topiramate (Topiramate) 50 Mg Tab, 50 MG PO BID, (Reported) Venlafaxine Hydrochloride (Venlafaxine HCl) 100 Mg Tab, 200 MG PO BID, (Reported ) Scheduled PRN Acetaminophen/Hydrocodone (Hydrocodone/Acetaminophen 10-325 mg) 1 Tab Tab, 1 TAB PO Q4H PRN for PAIN, (Reported) Ondansetron HCl (Ondansetron HCl) 4 Mg Tab, 4 MG PO QID PRN for NAUSEA OR VOMITING, (Reported) Rizatriptan Benzoate (Rizatriptan Benzoate Odt) 10 Mg Tab, 10 MG PO PRN PRN for MIGRAINE, (Reported) Tizanidine Hydrochloride (Tizanidine HCl) 4 Mg Cap, 4 MG PO QHS PRN for MUSCLE SPASMS, (Reported) Allergies Coded Allergies: Gabapentin (Verified Allergy, Intermediate, RASH, 11/09/16) NSAIDs (Verified Allergy, Intermediate, "SWELLING", 11/09/16) Rofecoxib (Verified Allergy, Intermediate, HIVES,JOINT SWELLING, 11/09/16) Oxycodone (Verified Adverse Reaction, Severe, SEVERE VOMITING, 11/09/16) Buprenorphine (Verified Adverse Reaction, Intermediate, DIZZINESS/VOMITING , 11/09/16) Past Medical History Medical History 1. History gastric bypass 2. Recurrent deep venous thrombosis 3. Peptic ulcer disease 4. Depression 5. Chronic low back pain 6. Iron deficiency anemia 7. Vitamin B12 deficiency 8. History of diverticulitis with abscess 9. Migraines on prophylaxis Surgical History 1. Gastric bypass 2. 2 3. IVC filter placed 2005, removed 2014 4. JOSAFAT Family History Family medical history: Pertinent only for diabetes Social History * Smoker: non-smoker Alcohol: Denies Drugs: denies Recent Travel/Sick Contacts: Reports: Recent travel, Recent sick contacts Psychosocial History: Depression Patient is with 2 children Review of Symptoms Constitutional: Reports: Fever, Malaise, Denies: Chills Cardiovascular: Denies: Chest Pain Gastrointestinal: Reports: Nausea, Vomiting, Abdominal Pain, Diarrhea, Denies: Constipation, Melena, Hematochezia Genitourinary: Denies: Dysuria, Frequency Other systems 10 point review systems otherwise negative Physical Examination General Exam: Positive: Alert, Cooperative, Mild Distress, Other (ill-appearing ) Eye Exam: Positive: PERRLA, Conjunctiva & lids normal, EOMI, Negative: Sclera icteric ENT Exam: Positive: Atraumatic, Mucous membr. moist/pink Neck Exam: Positive: Supple, Negative: thyromegaly Chest Exam: Positive: Clear to auscultation, Normal air movement, Negative: Rales, Rhonchi, Wheezing Heart Exam: Positive: Rate Normal, Normal S1, Normal S2, Negative: Murmurs Abdomen Exam: Positive: BS Hypoactive, Soft, Tenderness (exquisite left lower quadrant tenderness, + left lower quadrant guarding, no rebound tenderness), Other (left lower quadrant is hot to the touch, but no overlying erythema or induration), Negative: Normal bowel sounds Extremity Exam: Negative: Clubbing, Cyanosis Skin Exam: Positive: Nl turgor and temperature Neuro Exam: Positive: Normal Speech Psych Exam: Positive: Mental status NL, Oriented x 3 Vital Signs Vital Signs Date Time Temp Pulse Resp B/P (MAP) Pulse Ox O2 Delivery O2 Flow Rate FiO2 12/12/16 16:05 18 12/12/16 15:22 109/53 (71) 12/12/16 15:21 100.3 12/12/16 15:12 116 95 12/12/16 15:11 Room Air Temp: 103.3 Pulse: 107 Respiratory rate: 20 Blood pressure: 115/73 Pulse ox: 99% on room air Laboratory Data Labs 24H Laboratory Tests 2 12/12/16 13:08: Neutrophils 75, Band Neutrophils 12H, Lymphocytes (Manual) 7L, Monocytes (Manual ) 4, Atypical Lymphocytes 2, Platelet Estimate NORMAL, Anisocytosis 1+, Macrocytosis 1+, Prothrombin Time 15.3H, Prothromb Time International Ratio 1.19 , Activated Partial Thromboplast Time 32.0, Anion Gap 13, Glomerular Filtration Rate 50.5L, Lactic Acid Level 3.6*H, Calcium Level 7.9L, Magnesium Level 1.3L, Aspartate Amino Transf (AST/SGOT) 11L, Alanine Aminotransferase (ALT/SGPT) 13, Alkaline Phosphatase 65, Total Bilirubin 0.6, Direct Bilirubin 0.1, C-Reactive Protein, Quantitative 10.40H, Total Protein 7.5, Albumin 3.4, Albumin/Globulin Ratio 0.83L, Lipase 61L 12/12/16 14:35: Urine Appearance CLOUDYH, Urine Color PALMER, Urine pH 5.0, Urine Specific [place] 1.023, Urine Protein NEGATIVE, Urine Glucose (UA) NEGATIVE, Urine Ketones NEGATIVE, Urine Urobilinogen 0.2, Urine Bilirubin NEGATIVE, Urine Leukocyte Esterase NEGATIVE, Urine Blood NEGATIVE, Urine Nitrite NEGATIVE, Urine WBC (Auto) 5H, Urine RBC (Auto) 2, Urine Hyaline Casts (Auto) 6, Urine Bacteria (Auto) 1+H, Urine Squamous Epithelial Cells 12, Urine Mucus (Auto) SMALL, Urine Sperm (Auto) CBC/BMP Laboratory Tests 12/12/16 13:08 Red Blood Count 4.31, Mean Corpuscular Volume 101.1 H, Mean Corpuscular Hemoglobin 34.0 H, Mean Corpuscular Hemoglobin Concent 33.6, Red Cell Distribution Width 13.3 Microbiology Microbiology 12/12/16 Blood Culture, Received Pending 12/12/16 Blood Culture, Received Pending 12/12/16 Gastrointestinal Tract Panel (PCR), Received Pending 12/12/16 Urine Culture, Received Pending Assessment/Plan This is a 41-year-old patient of Dr. Galindo, admitted 12/12/2016 with acute left lower quadrant abdominal pain, lactic acidosis, tachycardia, and fever. Problems (1) Abdominal pain Status: Acute Problem Text: Pt presenting with acute onset of LLQ abdominal pain and diffuse diarrhea. GI panel positive for enteropathogenic E coli and Salmonella. However , pt reports pain came on very suddenly and generally e coli and salmonella are self limited infections which would not cause fever of 103. Additionally, pt has no white count and significant lactic acidosis. CT reportedly non-specific findings of ileus and diverticulosis without diverticulitis. However, decreased air within the bowel with increase signal along a segment. Given lactic acidosis , temp 103, and hx of bypass, discussed case with Dr. Santiago to review CT and pt for poss internal hernia, as infectious diarrhea may be a [place] which contributed to internal hernia and ischemic bowel. Tubal not possible to do history of JOSAFAT. - admit to med surg - repeat STAT lactate - NS @ 150 with 20 MEQ KCl - NPO - levaquin/flagyl given in ER for poss intra-abdominal vs infectious diarrhea; await post-op dx - IV morphine PRN for pain - no anti-motility agents until GI Panel results negative for C-diff (2) Infectious diarrhea Status: Acute Problem Text: Diarrhea x 1 day. GI panel + thus far for enteropathic e coli and salmonella. Pt reports no recent ingestion of undercooked foods or ground beef. Generally these are self limited, but levaquin would cover. -Consider continuing Levaquin pending postop diagnosis (3) Recurrent deep venous thrombosis Status: Chronic Problem Text: Currently on Xarelto for history of recurrent DVT. -Hold Xarelto (4) Chronic anticoagulation Status: Chronic Problem Text: Holding Xarelto for possible laparoscopy (5) Chronic back pain Status: Chronic Problem Text: Patient is on chronic narcotics, so may need higher doses of medications for pain management. (6) GERD (gastroesophageal reflux disease) Status: Chronic Problem Text: History of peptic ulcer disease. Currently on PPI. -IV PPI until taking oral intake again (7) History of iron deficiency anemia Status: Chronic (8) History of pernicious anemia Status: Chronic (9) Migraines Status: Chronic Problem Text: Continue prophylactic Topamax (10) Depression, major Status: Acute Problem Text: Continue Effexor Plan / VTE VTE Prophylaxis Ordered?: Yes (Pt on chronic xeralto for hx or recurrent DVTs) Plan Plan Dr. Gregorio evaluated the patient, and feels she should be evaluated in the OR for possible ischemic bowel Disposition Patient to go to PCU postoperatively and transition to [facility] when stable. SUN DE LA CRUZ MD Dec 12, 2016 16:48
[2016-12-12] MEDS ORDERED: ROCURONIUM BROMIDE 50 MG/5 ML VIAL/SYRINGE As Ordered ONE ×2 (16:49→18:28)
[2016-12-12] MEDS ORDERED: PROPOFOL 200 MG/20 ML VIAL As Ordered ONE (16:50)
[2016-12-12] MEDS ORDERED: SUCCINYLCHOLINE 100 MG/5 ML SYRINGE (J0330) As Ordered ONE (16:50)
[2016-12-12] MEDS ORDERED: fentaNYL 250 MCG/5 ML INJECTION (J3010) As Ordered ONE (16:50)
[2016-12-12] MEDS ORDERED: MIDAZOLAM INJ 2 MG/2 ML VIAL (J2250) As Ordered ONE (16:51)
--- NOTE | 2016-12-12 17:02 | REP ---
Abdomen supine and upright, two views: Comparisons are the CT of the abdomen pelvis performed earlier today and the supine and upright abdomen of 09/08/2016. There are multiple air-fluid levels in nondistended bowel. The pattern is nonspecific at this time. The renal collecting systems and bladder are opacified from the IV contrast from the previous CT. Skeletal structures and soft tissues are otherwise unremarkable. Impression: Multiple air-fluid levels in nondistended bowel loops in a nonspecific pattern. Signed by Adrian Forbes MD 12/12/2016 04:53 P
[2016-12-12] MEDS ORDERED: ERTAPENEM 1 GM INJ (INVanz) (J1335) As Ordered ONE (17:14)
[2016-12-12] MEDS: ERTAPENEM SODIUM 1 GM in NS MINI-BAG PLUS 50 ML IV SCH (17:39)
[2016-12-12] MEDS ORDERED: tiZANidine 4 MG TAB PO PRN (18:00)
[2016-12-12] MEDS ORDERED: RIZATRIPTAN MLT 10 MG TAB PO PRN (18:00)
[2016-12-12] MEDS ORDERED: ONDANSETRON 4MG/2ML VIAL (J2405) As Ordered ONE (18:26)
[2016-12-12] MEDS ORDERED: fentaNYL 100 MCG/2 ML INJECTION (J3010) As Ordered ONE (18:39)
[2016-12-12] MEDS ORDERED: ACETAMINOPHEN TAB 650MG DOSE (2X325MG) PO PRN (18:45)
[2016-12-12] MEDS ORDERED: MOM 30ML SUSPENSION UDC PO PRN (18:45)
[2016-12-12] MEDS ORDERED: PIPERACILLIN/TAZOBACTAM SOD 3.375 GM in D5W MINI-BAG PLUS 50 ML IV SCH (19:00)
[2016-12-12] MEDS ORDERED: SODIUM CHLORIDE 0.9% 1000 ML IV ONE (19:00)
[2016-12-12] MEDS ORDERED: KCL 20MEQ IN D5/0.9%NACL 1000 ML As Ordered ONE (19:54)
[2016-12-12] MEDS ORDERED: KETOROLAC 30 MG/ML VIAL (J1885) As Ordered ONE (20:00)
[2016-12-12] MEDS ORDERED: fentaNYL 100 MCG/2 ML INJECTION (J3010) IV PRN (20:00)
[2016-12-12] MEDS: KETOROLAC 30 MG/ML VIAL (J1885) IV PRN (20:00)
[2016-12-12] MEDS ORDERED: ONDANSETRON 4MG/2ML VIAL (J2405) IV PRN (20:00)
[2016-12-12] MEDS ORDERED: LR 1,000 ML IV SCH (20:00)
[2016-12-12 20:46] VITALS: BP 90/53
[2016-12-12 21:00] VITALS: BP_SYST 68; BP_SYST 91; BP_DIAS 38; BP_DIAS 53
[2016-12-12] MEDS: SENOKOT S TAB PO SCH (21:00)
[2016-12-12 22:00] VITALS: BP 98/45
[2016-12-12] MEDS: HEPARIN SOD (PORCINE) 5000 UNITS/ML VIAL SC SCH (22:03)
[2016-12-12] MEDS: VITAMIN D 1,000 INTERNATIONAL UNITS TABLET PO SCH (22:04)
[2016-12-12] MEDS: PREGABALIN 75 MG CAP(LYRICA) PO SCH (22:04)
[2016-12-12] MEDS: TOPIRAMATE (TopAMAX) 25 MG TAB PO SCH (22:05)
[2016-12-12] MEDS: VENLAFAXINE 25 MG TAB PO SCH (22:06)
[2016-12-12 22:47] VITALS: BP_SYST 93; BP_SYST 96; BP_DIAS 40; BP_DIAS 57
[2016-12-12 23:17] VITALS: BP_SYST 115; BP_SYST 93; BP_DIAS 42; BP_DIAS 62
[2016-12-12 23:32] VITALS: BP_SYST 124; BP_SYST 126; BP_DIAS 52; BP_DIAS 72
[2016-12-12] MEDS ORDERED: MAGNESIUM SULFATE 1 GM/100 ML D5W BAG (10MG/ML) (J3475) As Ordered ONE (23:48)
[2016-12-12] MEDS: metroNIDAZOLE 500 MG in APPROPRIATE DILUENT 1 EA IV SCH (23:56)
[2016-12-13] VITALS (16 sets, daily range): BP systolic 80–130; BP diastolic 36–83
[2016-12-13] MEDS ORDERED: NS 1,000 ML IV ONE (00:15)
[2016-12-13] MEDS: ONDANSETRON 4MG/2ML VIAL (J2405) IV PRN ×3 (00:39→23:55)
[2016-12-13 02:37] LABS: CALCIUM LEVEL 7.3 MG/DL (8.5-10.1); CREATININE FOR GFR 1.27 MG/DL (0.55-1.02); GLOMERULAR FILTRATION RATE 49.1 (>58); POTASSIUM SERUM 3.4 MEQ/L (3.5-5.1)
[2016-12-13 02:42] LABS: MAGNESIUM LEVEL 1.8 MG/DL (1.8-2.4)
[2016-12-13] MEDS: KETOROLAC 30 MG/ML VIAL (J1885) IV PRN (03:50)
[2016-12-13] MEDS: HEPARIN SOD (PORCINE) 5000 UNITS/ML VIAL SC SCH ×3 (06:08→22:04)
[2016-12-13] MEDS: metroNIDAZOLE 500 MG in APPROPRIATE DILUENT 1 EA IV SCH ×3 (06:09→22:04)
[2016-12-13 06:52] LABS: ADD MANUAL DIFFER YES; DIFF SLIDE NUMBER 91; MEAN CORPUSCULAR HEMOGLOBIN 33.5 pg (27.0-33.0); MEAN CORPUSCULAR VOLUME 101.7 fl (80.0-96.0); PLATELET COUNT, AUTOMATED 219 k/mm3 (150-450); RED CELL DISTRIBUTION WIDTH 13.4 % (11.5-14.5); WHITE BLOOD COUNT 4.2 K/mm3 (4.0-10.0)
[2016-12-13 06:56] LABS: CALCIUM LEVEL 7.2 MG/DL (8.5-10.1); CREATININE FOR GFR 1.24 MG/DL (0.55-1.02); GLOMERULAR FILTRATION RATE 50.5 (>58); MAGNESIUM LEVEL 1.8 MG/DL (1.8-2.4); POTASSIUM SERUM 3.3 MEQ/L (3.5-5.1)
--- NOTE | 2016-12-13 07:44 | CR ---
DATE OF CONSULTATION: 12/12/2016 REASON FOR CONSULTATION: Abdominal pain. HISTORY OF PRESENT ILLNESS: The patient is a 41-year-old female who presents with acute onset of abdominal pain that started last evening. She said the pain started in the left lower quadrant at about a 7 out of 10 pain. She has had some diarrhea since then. Has not had any change or improvement in her pain with the diarrhea. She did note some mucus in the stool but no blood. Denies eating any undercooked meats recently. No exposure to unclean water sources. She has had fevers at home and increasing pain and that is why she came to the emergency room today for evaluation. In the emergency room (ER), she had a fever of 103, white count was normal, lactic acid was elevated. CT scan showed some slightly dilated loops of bowel suspicious for ileus versus early partial bowel obstruction. No signs of diverticulitis. No recent trauma or travel. She is currently on Xarelto for a history of deep venous thrombosis (DVT) that were recurrent. She also has morbid obesity status post gastric bypass in 2012. PAST MEDICAL HISTORY: Recurrent DVTs. Gastroesophageal reflux disease. Depression. Chronic low back pain. Iron-deficient anemia. B12 deficiency. History of diverticulitis with abscess. History of migraines. PAST SURGICAL HISTORY: Gastric bypass. times two. Inferior vena cava (IVC) filter placement and removal. Total abdominal hysterectomy. Umbilical hernia repair. FAMILY HISTORY: Noncontributory. SOCIAL HISTORY: Denies drug, alcohol, tobacco usage. REVIEW OF SYSTEMS: Per positives and negatives stated in the history of present illness (HPI). PHYSICAL EXAMINATION: GENERAL: Patient and alert and oriented times three. No acute stress. VITALS: Temperature 103.3, pulse 107, respirations 20, blood pressure 115/73, pulse ox 99% room air. HEENT: Pupils equal round react to light accommodation. HEART: S1, S2 regular rate and rhythm. LUNGS: Clear to auscultation bilaterally. ABDOMEN: Soft, distended, diffusely tender to palpation, rebound tenderness diffusely guarding in the right abdomen and the left lower abdomen. EXTREMITIES: No clubbing, cyanosis or edema. LABORATORY DATA: White count 6.8, hemoglobin 14.7, platelets 288, bands 12. Potassium 3, creatinine 1.24, lactic acid 3.6 with a repeat at 3.4. Stool panel was positive for some Salmonella and enteropathogenic E. coli. IMAGING: CT abdomen and pelvis shows mild small bowel distention, possibly ileus. No ascites or adenopathy, diverticulosis without diverticulitis, hysterectomy. Abdominal x-ray shows multiple air fluid levels and nondistended bowel loops in a nonspecific pattern. ASSESSMENT/PLAN: The patient is a 41-year-old female status post gastric bypass in 2012 who presents with severe abdominal pains, bandemia, lactic acidosis with a medical history of morbid obesity, chronic back pain, recurrent DVTs on Xarelto. At this time she is having peritoneal signs with fevers of 103, lactic acidosis and bandemia highly suspicious for an internal hernia, likely strangulated. However, she has does also have positive stools for Salmonella and enteropathogenic E coli. So this could all be secondary to a really bad enterocolitis as well, likely with some bacteremia resulting in the fevers. At this time, recommendation is to proceed with diagnostic laparoscopy, possible laparotomy to rule out internal hernia. Risks and benefits of procedure not limited but including bleeding, infection, hernia formation, damage to surrounding structures also need for further surgery were discussed in detail with the patient. Informed consent was obtained. The procedure was planned. Further recommendations to follow postoperative.
[2016-12-13] MEDS: NORCO, ANEXSIA 5/325MG TABLET (HYDROcodone/ACETAMINOPHEN) PO PRN ×4 (07:46→23:55)
[2016-12-13] MEDS: VENLAFAXINE 25 MG TAB PO SCH ×2 (08:59→20:03)
[2016-12-13] MEDS: CYANOCOBALAMIN 500 MCG TAB PO SCH (08:59)
[2016-12-13] MEDS: TOPIRAMATE (TopAMAX) 25 MG TAB PO SCH ×2 (09:00→20:02)
[2016-12-13] MEDS: VITAMIN D 1,000 INTERNATIONAL UNITS TABLET PO SCH ×2 (09:00→20:02)
[2016-12-13] MEDS: PANTOPRAZOLE 40MG INJ (PROTONIX) (C9113) IV SCH (09:00)
[2016-12-13] MEDS: medroxyPROGESTERone 5MG TABLET PO SCH (09:00)
[2016-12-13] MEDS: SENOKOT S TAB PO SCH ×2 (09:00→19:51)
[2016-12-13] MEDS: PREGABALIN 75 MG CAP(LYRICA) PO SCH ×3 (09:00→20:03)
--- NOTE | 2016-12-13 09:32 | RO ---
DATE OF PROCEDURE: 12/12/2016 PREOPERATIVE DIAGNOSIS: Peritoneal abdomen. POSTOPERATIVE DIAGNOSIS: Peritoneal abdomen with abdominal adhesions, dilated loops of small bowel. PROCEDURE: Diagnostic laparoscopy with lysis of adhesions and abdominal exploration. SURGEON: Dr. Santiago COMMUNITY AFFAIRS DIRECTOR: Dr. Crandall ANESTHESIA: General. ESTIMATED BLOOD LOSS (EBL): 5. COMPLICATIONS: None. INDICATIONS FOR PROCEDURE: Patient is a 41-year-old female with a history of gastric bypass presents with peritoneal abdomen, fevers, lactic acidosis, and bandemia. Recommendation is to proceed with a diagnostic laparoscopy, possible laparotomy. Risks, benefits of procedure not limited but include bleeding, infection, inflammation, damage surrounding structures, need further surgery were discussed in detail with the patient. Informed was obtained and procedure was planned. DESCRIPTION OF PROCEDURE: Patient brought back to operating room #3. After sufficient sedation, the abdomen sterilely prepped and draped. Time-out was done to confirm proper patient, proper procedure. Following that a 5 mm incision was made in left upper quadrant, Veress needle was inserted and the abdomen was insufflated to 50 mmHg. A 5 mm Optiview port was used to gain access to the abdomen. Once abdomen was entered, there were multiple adhesions in the midline from the umbilicus extending all way down towards the bladder. There were no obvious signs of ischemia anywhere. Another 5 mm port was placed midline below the xyphoid. Using an Enseal the adhesions were taken down from the umbilicus inferiorly. Once that was completed, another 5 mm port was placed in the left lower quadrant. The omentum was still adhered to a loop of large intestine in the left lower quadrant. This was transected. The omentum was elevated up towards the liver. The cecum was identified. There was a large ovarian cyst on the right side that appeared intact without any signs of inflammation or torsion. The appendix looked normal. The cecum was elevated and the small bowel was run from the terminal ileum all the way proximally until the anastomosis from her gastric bypass was encountered. Then, the small bowel was run from there proximally all way up towards the stomach, the transverse colon loops all way up and was adhered to this up above anterior to the spleen. But when this was elevated up in the air there was no signs of any ischemic bowel inferior to this either. Patient tolerated the procedure well. The abdomen was then desufflated. Skin incisions were closed with #4-0 Vicryl subcuticular sutures. The abdomen was cleaned and dried. Steri-Strip, 4 x 4 and tape were applied, thus ending procedure.
[2016-12-13] MEDS ORDERED: KCL 10MEQ IN 100ML SWI (KRUN) 10 MEQ in APPROPRIATE DILUENT 1 EA IV ONE ×4 (10:00→13:00)
--- NOTE | 2016-12-13 10:29 | IPNPDOC ---
Subjective Date Seen The patient was seen on 12/13/16. Subjective Chief Complaint/HPI The patient is a 41-year-old female admitted with a reason for visit of Abdominal Pain. ENT: Denies: Head Aches Skin: Denies: Rash Pulmonary: Denies: Dyspnea, Cough Cardiovascular: Denies: Chest Pain, Palpitations Gastrointestinal: Reports: Nausea Hematologic: Denies: Bruising, Petecchia Objective Physical Examination General Exam: Positive: Cooperative, Mild Distress, Other (ill-appearing, able to converse) Eye Exam: Positive: PERRLA, Conjunctiva & lids normal, EOMI, Negative: Sclera icteric ENT Exam: Positive: Atraumatic, Mucous membr. moist/pink Neck Exam: Positive: Supple, Negative: thyromegaly Chest Exam: Positive: Clear to auscultation, Normal air movement, Negative: Rales, Rhonchi, Wheezing Heart Exam: Positive: Rate Normal, Normal S1, Normal S2, Negative: Murmurs Telemetry: Positive: No significant arrhythmia, Tachycardia Abdomen Exam: Positive: BS Hypoactive, Soft, Tenderness (diffuse, no mass), Other (left lower quadrant is hot to the touch, but no overlying erythema or induration), Negative: Normal bowel sounds Extremity Exam: Negative: Clubbing, Cyanosis Skin Exam: Positive: Nl turgor and temperature Neuro Exam: Positive: Normal Speech Psych Exam: Positive: Mental status NL, Oriented x 3 Assessment /Plan Problems (1) Abdominal pain Status: Acute Problem Text: 12/13/16: patient went to OR for exporation of acute abdomen. no obstruction, perforation, or ischemic bowel identified. now post op and Surgeon allowing a bit of clear liquids Pt presenting with acute onset of LLQ abdominal pain and diffuse diarrhea. GI panel positive for enteropathogenic E coli and Salmonella. However, pt reports pain came on very suddenly and generally e coli and salmonella are self limited infections which would not cause fever of 103. Additionally, pt has no white count and significant lactic acidosis. CT reportedly non-specific findings of ileus and diverticulosis without diverticulitis. However, decreased air within the bowel with increase signal along a segment. Given lactic acidosis, temp 103 , and hx of bypass, discussed case with Dr. Santiago to review CT and pt for poss internal hernia, as infectious diarrhea may be a Red Donnelly which contributed to internal hernia and ischemic bowel. Tubal not possible to do history of JOSAFAT. - admit to med surg - repeat STAT lactate - NS @ 150 with 20 MEQ KCl - NPO - levaquin/flagyl given in ER for poss intra-abdominal vs infectious diarrhea; await post-op dx - IV morphine PRN for pain - no anti-motility agents until GI Panel results negative for C-diff (2) Infectious diarrhea Status: Acute Problem Text: 12/13/16: on multiple antibiotics which should cover identified species (Salmonella and Enteropathogenic E coli). Still having diarrhea Diarrhea x 1 day. GI panel + thus far for enteropathic e coli and salmonella. Pt reports no recent ingestion of undercooked foods or ground beef. Generally these are self limited, but levaquin would cover. -Consider continuing Levaquin pending postop diagnosis (3) Recurrent deep venous thrombosis Status: Chronic Problem Text: 12/13/16 would like to resume DVT treatment as soon as surgeon is OK. Usually 24 hours post op. Currently on Xarelto for history of recurrent DVT. -Hold Xarelto (4) Chronic anticoagulation Status: Chronic Problem Text: Holding Xarelto for possible laparoscopy (5) Chronic back pain Status: Chronic Problem Text: Patient is on chronic narcotics, so may need higher doses of medications for pain management. (6) GERD (gastroesophageal reflux disease) Status: Chronic Problem Text: History of peptic ulcer disease. Currently on PPI. -IV PPI until taking oral intake again (7) History of iron deficiency anemia Status: Chronic (8) History of pernicious anemia Status: Chronic (9) Migraines Status: Chronic Problem Text: Continue prophylactic Topamax (10) Depression, major Status: Acute Problem Text: Continue Effexor Plan/VTE VTE Prophylaxis Ordered?: No (Pt on chronic xeralto for hx or recurrent DVTs) VTE Exclusion Mechanical Proph: Other (Held for surgery.) Plan/Urinary Catheter Reason for insertion/continuin: Critical Pt monitoring Plan IVF: Continue Anticipated Discharge: Home VS, I&O, 24H, Fishbone Vital Signs/I&O Vital Signs Date Time Temp Pulse Resp B/P (MAP) Pulse Ox O2 Delivery O2 Flow Rate FiO2 12/13/16 08:22 30 12/13/16 06:00 107 110/56 (74) 97 Nasal Cannula 3.0 106/39 (61) 12/13/16 03:12 99.7 8/13/17 20:46 50 I&O- Last 24 Hours up to 6 AM 12/13/16 06:00 Intake Total 7000 ml Output Total 2065 ml Balance 4935 ml Laboratory Data 24H LABS Laboratory Tests 2 12/12/16 13:08: Neutrophils 75, Band Neutrophils 12H, Lymphocytes (Manual) 7L, Monocytes (Manual ) 4, Atypical Lymphocytes 2, Platelet Estimate NORMAL, Anisocytosis 1+, Macrocytosis 1+, Prothrombin Time 15.3H, Prothromb Time International Ratio 1.19 , Activated Partial Thromboplast Time 32.0, Anion Gap 13, Glomerular Filtration Rate 50.5L, Lactic Acid Level 3.6*H, Calcium Level 7.9L, Magnesium Level 1.3L, Aspartate Amino Transf (AST/SGOT) 11L, Alanine Aminotransferase (ALT/SGPT) 13, Alkaline Phosphatase 65, Total Bilirubin 0.6, Direct Bilirubin 0.1, C-Reactive Protein, Quantitative 10.40H, Total Protein 7.5, Albumin 3.4, Albumin/Globulin Ratio 0.83L, Lipase 61L 12/12/16 14:35: Urine Appearance CLOUDYH, Urine Color PALMER, Urine pH 5.0, Urine Specific [place] 1.023, Urine Protein NEGATIVE, Urine Glucose (UA) NEGATIVE, Urine Ketones NEGATIVE, Urine Urobilinogen 0.2, Urine Bilirubin NEGATIVE, Urine Leukocyte Esterase NEGATIVE, Urine Blood NEGATIVE, Urine Nitrite NEGATIVE, Urine WBC (Auto) 5H, Urine RBC (Auto) 2, Urine Hyaline Casts (Auto) 6, Urine Bacteria (Auto) 1+H, Urine Squamous Epithelial Cells 12, Urine Mucus (Auto) SMALL, Urine Sperm (Auto) 12/12/16 16:49: Lactic Acid Level 3.4*H 12/12/16 21:02: Lactic Acid Followup at 4 Hours 4.3*H 12/13/16 01:10: Anion Gap 13, Glomerular Filtration Rate 49.1L, Lactic Acid Level 3.2*H, Blood Urea Nitrogen 16, Creatinine 1.27H, Sodium Level 139, Potassium Level 3.4L, Chloride Level 112H, Carbon Dioxide Level 14L, Calcium Level 7.3L, Magnesium Level 1.8 12/13/16 06:27: Neutrophils 80H, Lymphocytes (Manual) 20, Platelet Estimate NORMAL, Red Blood Cell Morphology NORMAL 12/13/16 06:28: Anion Gap 13, Glomerular Filtration Rate 50.5L, Blood Urea Nitrogen 19H, Creatinine 1.24H, Sodium Level 144, Potassium Level 3.3L, Chloride Level 118H, Carbon Dioxide Level 13L, Calcium Level 7.2L, Magnesium Level 1.8 CBC/BMP Laboratory Tests 12/12/16 13:08 Red Blood Count 4.31, Mean Corpuscular Volume 101.1 H, Mean Corpuscular Hemoglobin 34.0 H, Mean Corpuscular Hemoglobin Concent 33.6, Red Cell Distribution Width 13.3 12/13/16 01:10 Calcium Level 7.3 L 12/13/16 06:27 Red Blood Count 3.54 L, Mean Corpuscular Volume 101.7 H, Mean Corpuscular Hemoglobin 33.5 H, Mean Corpuscular Hemoglobin Concent 33.0, Red Cell Distribution Width 13.4 12/13/16 06:28 Calcium Level 7.2 L Microbiology Microbiology 12/12/16 Blood Culture, Received Pending 12/12/16 Blood Culture, Received Pending 12/12/16 Gastrointestinal Tract Panel (PCR) - Final, Resulted Salmonella Enteropathogenic E.coli 12/12/16 , Resulted Pending 12/12/16 Urine Culture - Final, Complete Pb Hitchcock MD Dec 13, 2016 10:29
[2016-12-13 11:16] LABS: FOLATE 10.7 NG/ML (>5.4)
[2016-12-13] MEDS: KCL 20MEQ in NS 1000ML 1,000 ML IV SCH ×3 (14:00→20:44)
[2016-12-13] MEDS: ERTAPENEM SODIUM 1 GM in NS MINI-BAG PLUS 50 ML IV SCH (18:10)
[2016-12-14] VITALS (10 sets, daily range): BP systolic 93–170; BP diastolic 50–115
[2016-12-14] MEDS: NORCO, ANEXSIA 5/325MG TABLET (HYDROcodone/ACETAMINOPHEN) PO PRN ×5 (04:03→23:05)
[2016-12-14] MEDS: KETOROLAC 30 MG/ML VIAL (J1885) IV PRN ×3 (04:08→23:05)
[2016-12-14] MEDS: KCL 20MEQ in NS 1000ML 1,000 ML IV SCH ×3 (04:09→19:00)
[2016-12-14] MEDS: HEPARIN SOD (PORCINE) 5000 UNITS/ML VIAL SC SCH (05:51)
[2016-12-14] MEDS: metroNIDAZOLE 500 MG in APPROPRIATE DILUENT 1 EA IV SCH ×3 (06:01→23:06)
[2016-12-14 06:32] LABS: ANION GAP 10 MEQ/L (8-16); BLOOD UREA NITROGEN 11 MG/DL (7-18); CALCIUM LEVEL 7.7 MG/DL (8.5-10.1); CARBON DIOXIDE LEVEL 14 MEQ/L (21-32); CHLORIDE LEVEL 115 MEQ/L (98-107); CREATININE FOR GFR 0.99 MG/DL (0.55-1.02); GLOMERULAR FILTRATION RATE > 60.0 (>58); GLUCOSE, FASTING 100 MG/DL (70-105); POTASSIUM SERUM 2.9 MEQ/L (3.5-5.1); SODIUM LEVEL 139 MEQ/L (136-145)
[2016-12-14 06:35] LABS: ADD MANUAL DIFFER YES; MEAN CORPUSCULAR HEMOGLOBIN 33.1 pg (27.0-33.0); MEAN CORPUSCULAR HGB CONC 32.7 g/dl (32.0-36.5); MEAN CORPUSCULAR VOLUME 101.4 fl (80.0-96.0); PLATELET COUNT, AUTOMATED 226 k/mm3 (150-450); RED CELL DISTRIBUTION WIDTH 13.4 % (11.5-14.5); WHITE BLOOD COUNT 5.3 K/mm3 (4.0-10.0)
[2016-12-14 07:25] LABS: BANDS 15 % (< 11); PLATELET CLUMPS SMALL AMT
[2016-12-14] MEDS ORDERED: KCL 10MEQ IN 100ML SWI (KRUN) 10 MEQ in APPROPRIATE DILUENT 1 EA IV ONE ×6 (07:45→15:00)
[2016-12-14] MEDS: SENOKOT S TAB PO SCH ×2 (09:00→21:00)
[2016-12-14] MEDS ORDERED: aMILoride 5 MG TAB PO ONE (09:00)
[2016-12-14] MEDS: PANTOPRAZOLE 40MG INJ (PROTONIX) (C9113) IV SCH (09:43)
[2016-12-14] MEDS: PREGABALIN 75 MG CAP(LYRICA) PO SCH ×3 (09:44→21:26)
[2016-12-14] MEDS: medroxyPROGESTERone 5MG TABLET PO SCH (09:44)
[2016-12-14] MEDS: VENLAFAXINE 25 MG TAB PO SCH ×2 (09:44→21:25)
[2016-12-14] MEDS: VITAMIN D 1,000 INTERNATIONAL UNITS TABLET PO SCH ×2 (09:45→21:25)
[2016-12-14] MEDS: TOPIRAMATE (TopAMAX) 25 MG TAB PO SCH ×2 (09:45→21:25)
[2016-12-14] MEDS: CYANOCOBALAMIN 500 MCG TAB PO SCH (09:45)
--- NOTE | 2016-12-14 10:24 | IPNPDOC ---
Subjective Date Seen The patient was seen on 12/14/16. Subjective Chief Complaint/HPI The patient is a 41-year-old female admitted with a reason for visit of Abdominal Pain. ENT: Denies: Head Aches Skin: Denies: Rash Pulmonary: Denies: Dyspnea, Cough Cardiovascular: Denies: Chest Pain, Palpitations Gastrointestinal: Reports: Abdominal Pain (mostly RLQ today), Diarrhea ( abundant, managed currently with rectal tube per Surgeon), Denies: Nausea Hematologic: Denies: Bruising, Petecchia Objective Physical Examination General Exam: Positive: Cooperative, Mild Distress, Other (ill-appearing, able to converse) Eye Exam: Positive: PERRLA, Conjunctiva & lids normal, EOMI, Negative: Sclera icteric ENT Exam: Positive: Atraumatic, Mucous membr. moist/pink Neck Exam: Positive: Supple, Negative: thyromegaly Chest Exam: Positive: Clear to auscultation, Normal air movement, Negative: Rales, Rhonchi, Wheezing Heart Exam: Positive: Rate Normal, Normal S1, Normal S2, Negative: Murmurs Telemetry: Positive: No significant arrhythmia, Tachycardia Abdomen Exam: Positive: BS Hyperactive, Soft, Tenderness (mostly tender RLQ), Other (left lower quadrant is hot to the touch, but no overlying erythema or induration), Negative: Normal bowel sounds Extremity Exam: Negative: Clubbing, Cyanosis Skin Exam: Positive: Nl turgor and temperature Neuro Exam: Positive: Normal Speech Psych Exam: Positive: Mental status NL, Oriented x 3 Assessment /Plan Problems (1) Abdominal pain Status: Acute Problem Text: 12/13/16: patient went to OR for exporation of acute abdomen. no obstruction, perforation, or ischemic bowel identified. now post op and Surgeon allowing a bit of clear liquids Pt presenting with acute onset of LLQ abdominal pain and diffuse diarrhea. GI panel positive for enteropathogenic E coli and Salmonella. However, pt reports pain came on very suddenly and generally e coli and salmonella are self limited infections which would not cause fever of 103. Additionally, pt has no white count and significant lactic acidosis. CT reportedly non-specific findings of ileus and diverticulosis without diverticulitis. However, decreased air within the bowel with increase signal along a segment. Given lactic acidosis, temp 103 , and hx of bypass, discussed case with Dr. Santiago to review CT and pt for poss internal hernia, as infectious diarrhea may be a Red Donnelly which contributed to internal hernia and ischemic bowel. Tubal not possible to do history of JOSAFAT. - admit to med surg - repeat STAT lactate - NS @ 150 with 20 MEQ KCl - NPO - levaquin/flagyl given in ER for poss intra-abdominal vs infectious diarrhea; await post-op dx - IV morphine PRN for pain - no anti-motility agents until GI Panel results negative for C-diff (2) Infectious diarrhea Status: Acute Problem Text: 12/14/16 Sensitivities pending. Will Rx azithro 1000mg X1 dose which may down regulate toxin production 12/13/16: on multiple antibiotics which should cover identified species ( Salmonella and Enteropathogenic E coli). Still having diarrhea Diarrhea x 1 day. GI panel + thus far for enteropathic e coli and salmonella. Pt reports no recent ingestion of undercooked foods or ground beef. Generally these are self limited, but levaquin would cover. -Consider continuing Levaquin pending postop diagnosis (3) Metabolic acidosis Status: Acute Response to Treatment: Stable Problem Text: likely result of sepsis, (SIRS) and electrolyte depletion associated with diarrhea. slowly improving. (4) Recurrent deep venous thrombosis Status: Chronic Problem Text: 12/14/16 restart Xarelto today. 12/13/16 would like to resume DVT treatment as soon as surgeon is OK. Usually 24 hours post op. Currently on Xarelto for history of recurrent DVT. -Hold Xarelto (5) Chronic anticoagulation Status: Chronic Problem Text: 12/14/16 resume Xarelto. (6) Chronic back pain Status: Chronic Problem Text: Patient is on chronic narcotics, so may need higher doses of medications for pain management. (7) GERD (gastroesophageal reflux disease) Status: Chronic Response to Treatment: Stable Problem Text: History of peptic ulcer disease. Currently on PPI. -IV PPI until taking oral intake again (8) History of iron deficiency anemia Status: Chronic (9) History of pernicious anemia Status: Chronic (10) Migraines Status: Chronic Problem Text: Continue prophylactic Topamax (11) Depression, major Status: Acute Response to Treatment: Stable Problem Text: Continue Effexor Plan/VTE VTE Prophylaxis Ordered?: No (Pt on chronic xeralto for hx or recurrent DVTs) VTE Exclusion Mechanical Proph: Other (Held for surgery.) Plan/Urinary Catheter Reason for insertion/continuin: Critical Pt monitoring Plan IVF: Continue Anticipated Discharge: Home VS, I&O, 24H, Fishbone Vital Signs/I&O Vital Signs Date Time Temp Pulse Resp B/P (MAP) Pulse Ox O2 Delivery O2 Flow Rate FiO2 12/14/16 08:45 24 12/14/16 08:09 90 106/58 99 Room Air 12/14/16 04:00 99.1 12/13/16 17:20 3.0 12/12/16 20:46 50 I&O- Last 24 Hours up to 6 AM 12/14/16 05:59 Intake Total 6740 ml Output Total 7450 ml Balance -710 ml Laboratory Data 24H LABS Laboratory Tests 2 12/13/16 11:00: Lactic Acid Followup at 4 Hours 2.2*H 12/14/16 05:53: Neutrophils 73, Band Neutrophils 15H, Lymphocytes (Manual) 10L, Monocytes ( Manual) 2, Platelet Estimate NORMAL, Clumped Platelets SMALL AMT, Red Blood Cell Morphology NORMAL, Anion Gap 10, Glomerular Filtration Rate > 60.0, Blood Urea Nitrogen 11, Creatinine 0.99, Sodium Level 139, Potassium Level 2.9*L, Chloride Level 115H, Carbon Dioxide Level 14L, Calcium Level 7.7L CBC/BMP Laboratory Tests 12/14/16 05:53 Red Blood Count 3.37 L, Mean Corpuscular Volume 101.4 H, Mean Corpuscular Hemoglobin 33.1 H, Mean Corpuscular Hemoglobin Concent 32.7, Red Cell Distribution Width 13.4, Calcium Level 7.7 L Microbiology Microbiology 12/12/16 Blood Culture - Preliminary, Resulted 12/12/16 Blood Culture - Preliminary, Resulted No growth after 24 hours . All specim... 12/12/16 Gastrointestinal Tract Panel (PCR) - Final, Resulted Salmonella Enteropathogenic E.coli 12/12/16 , Resulted Pending 12/12/16 Urine Culture - Final, Complete Pb Hitchcock MD Dec 14, 2016 10:24
[2016-12-14] MEDS ORDERED: AZITHROMYCIN 250 MG TAB PO ONE (11:00)
[2016-12-14] MEDS: SODIUM BICARBONATE 325 MG TAB PO SCH ×4 (12:49→21:25)
[2016-12-14 13:57] LABS: ANION GAP 10 MEQ/L (8-16); BLOOD UREA NITROGEN 13 MG/DL (7-18); CALCIUM LEVEL 7.8 MG/DL (8.5-10.1); CARBON DIOXIDE LEVEL 13 MEQ/L (21-32); CHLORIDE LEVEL 118 MEQ/L (98-107); CREATININE FOR GFR 1.01 MG/DL (0.55-1.02); GLOMERULAR FILTRATION RATE > 60.0 (>58); GLUCOSE, FASTING 92 MG/DL (70-105); POTASSIUM SERUM 3.4 MEQ/L (3.5-5.1); SODIUM LEVEL 141 MEQ/L (136-145)
[2016-12-14] MEDS: RIVAROXABAN 20 MG TAB (XARELTO) PO SCH (18:31)
[2016-12-14] MEDS: ERTAPENEM SODIUM 1 GM in NS MINI-BAG PLUS 50 ML IV SCH (18:32)
[2016-12-15] VITALS (11 sets, daily range): BP systolic 101–173; BP diastolic 57–141
[2016-12-15] MEDS: KCL 20MEQ in NS 1000ML 1,000 ML IV SCH ×2 (01:00→08:53)
[2016-12-15] MEDS: metroNIDAZOLE 500 MG in APPROPRIATE DILUENT 1 EA IV SCH (06:24)
[2016-12-15] MEDS: KETOROLAC 30 MG/ML VIAL (J1885) IV PRN (06:25)
[2016-12-15] MEDS: NORCO, ANEXSIA 5/325MG TABLET (HYDROcodone/ACETAMINOPHEN) PO PRN ×4 (06:25→23:08)
[2016-12-15 06:29] LABS: ANION GAP 11 MEQ/L (8-16); BLOOD UREA NITROGEN 11 MG/DL (7-18); CALCIUM LEVEL 7.7 MG/DL (8.5-10.1); CARBON DIOXIDE LEVEL 12 MEQ/L (21-32); CHLORIDE LEVEL 119 MEQ/L (98-107); CREATININE FOR GFR 0.99 MG/DL (0.55-1.02); GLOMERULAR FILTRATION RATE > 60.0 (>58); GLUCOSE, FASTING 91 MG/DL (70-105); POTASSIUM SERUM 3.8 MEQ/L (3.5-5.1); SODIUM LEVEL 142 MEQ/L (136-145)
[2016-12-15 06:33] LABS: ADD MANUAL DIFFER YES; MEAN CORPUSCULAR HEMOGLOBIN 33.8 pg (27.0-33.0); MEAN CORPUSCULAR HGB CONC 34.8 g/dl (32.0-36.5); MEAN CORPUSCULAR VOLUME 97.2 fl (80.0-96.0); PLATELET COUNT, AUTOMATED 234 k/mm3 (150-450); WHITE BLOOD COUNT 3.8 K/mm3 (4.0-10.0)
[2016-12-15 07:23] LABS: BANDS 1 % (< 11); BASOPHILS 1 % (0-4); EOSINOPHILS 7 % (0-5)
[2016-12-15] MEDS: PANTOPRAZOLE 40MG INJ (PROTONIX) (C9113) IV SCH (08:59)
[2016-12-15] MEDS: VITAMIN D 1,000 INTERNATIONAL UNITS TABLET PO SCH ×2 (09:00→21:30)
[2016-12-15] MEDS: SENOKOT S TAB PO SCH ×2 (09:00→21:31)
[2016-12-15] MEDS: SODIUM BICARBONATE 325 MG TAB PO SCH ×4 (09:01→21:31)
[2016-12-15] MEDS: CYANOCOBALAMIN 500 MCG TAB PO SCH (09:01)
[2016-12-15] MEDS: VENLAFAXINE 25 MG TAB PO SCH ×2 (09:01→21:31)
[2016-12-15] MEDS: medroxyPROGESTERone 5MG TABLET PO SCH (09:02)
[2016-12-15] MEDS: PREGABALIN 75 MG CAP(LYRICA) PO SCH ×3 (09:03→21:31)
[2016-12-15] MEDS: TOPIRAMATE (TopAMAX) 25 MG TAB PO SCH ×2 (09:03→21:30)
--- NOTE | 2016-12-15 09:58 | IPNPDOC ---
Subjective Date Seen The patient was seen on 12/15/16. Subjective Chief Complaint/HPI The patient is a 41-year-old female admitted with a reason for visit of Abdominal Pain. Events since last encounter Tolerating regular diet. Some diarrhea. Constitutional: Denies: Chills, Fever, Night Sweats Skin: Denies: Rash, Lesions, Breakdown Pulmonary: Denies: Dyspnea, Cough Cardiovascular: Denies: Chest Pain, Palpitations, Orthopnea, Paroxysmal Noc. Dyspnea, Lt Headedness Gastrointestinal: Reports: Diarrhea, Denies: Nausea, Vomiting, Abdominal Pain, Constipation Objective Physical Examination General Exam: Positive: Cooperative, No Acute Distress Eye Exam: Positive: PERRLA, Conjunctiva & lids normal, EOMI, Negative: Sclera icteric ENT Exam: Positive: Atraumatic, Mucous membr. moist/pink Neck Exam: Positive: Supple, Negative: thyromegaly Chest Exam: Positive: Clear to auscultation, Normal air movement, Negative: Rales, Rhonchi, Wheezing Heart Exam: Positive: Rate Normal, Normal S1, Normal S2, Negative: Murmurs Telemetry: Positive: No significant arrhythmia, Tachycardia Abdomen Exam: Positive: BS Hyperactive, Soft, Tenderness (mostly tender RLQ), Other (left lower quadrant is hot to the touch, but no overlying erythema or induration), Negative: Normal bowel sounds Extremity Exam: Negative: Clubbing, Cyanosis Skin Exam: Positive: Nl turgor and temperature Neuro Exam: Positive: Normal Speech Psych Exam: Positive: Mental status NL, Oriented x 3 Assessment /Plan Problems (1) Abdominal pain Status: Acute Problem Specific Plan: Monitor Clinically Problem Text: 12/15/16: slowly resolving. tolerating regular diet. anxious to go home. 12/13/16: patient went to OR for exporation of acute abdomen. no obstruction, perforation, or ischemic bowel identified. now post op and Surgeon allowing a bit of clear liquids Pt presenting with acute onset of LLQ abdominal pain and diffuse diarrhea. GI panel positive for enteropathogenic E coli and Salmonella. However, pt reports pain came on very suddenly and generally e coli and salmonella are self limited infections which would not cause fever of 103. Additionally, pt has no white count and significant lactic acidosis. CT reportedly non-specific findings of ileus and diverticulosis without diverticulitis. However, decreased air within the bowel with increase signal along a segment. Given lactic acidosis, temp 103 , and hx of bypass, discussed case with Dr. Santiago to review CT and pt for poss internal hernia, as infectious diarrhea may be a [place] which contributed to internal hernia and ischemic bowel. Tubal not possible to do history of JOSAFAT. - admit to med surg - repeat STAT lactate - NS @ 150 with 20 MEQ KCl - NPO - levaquin/flagyl given in ER for poss intra-abdominal vs infectious diarrhea; await post-op dx - IV morphine PRN for pain - no anti-motility agents until GI Panel results negative for C-diff (2) Salmonella bacteremia Status: Acute Response to Treatment: Improving Problem Specific Plan: Monitor Clinically Problem Text: change to po levofloxacin today. 3 days of invanz will need another 7 days of po levaquin (3) Infectious diarrhea Status: Acute Problem Text: 12/15/16 sensitivity avail for Salmonella from blood culture. 12/14/16 Sensitivities pending. Will Rx azithro 1000mg X1 dose which may down regulate toxin production 12/13/16: on multiple antibiotics which should cover identified species ( Salmonella and Enteropathogenic E coli). Still having diarrhea Diarrhea x 1 day. GI panel + thus far for enteropathic e coli and salmonella. Pt reports no recent ingestion of undercooked foods or ground beef. Generally these are self limited, but levaquin would cover. -Consider continuing Levaquin pending postop diagnosis (4) Metabolic acidosis Status: Acute Response to Treatment: Stable Problem Specific Plan: Monitor Clinically Problem Text: 12/15/16: electrolytes improving. likely result of sepsis, (SIRS) and electrolyte depletion associated with diarrhea. slowly improving. (5) Recurrent deep venous thrombosis Status: Chronic Response to Treatment: Stable Problem Specific Plan: Monitor Clinically Problem Text: 12/14/16 restart Xarelto today. 12/13/16 would like to resume DVT treatment as soon as surgeon is OK. Usually 24 hours post op. Currently on Xarelto for history of recurrent DVT. -Hold Xarelto (6) Chronic anticoagulation Status: Chronic Response to Treatment: Stable Problem Specific Plan: Monitor Clinically Problem Text: 12/14/16 resume Xarelto. (7) Chronic back pain Status: Chronic Response to Treatment: Stable Problem Specific Plan: Monitor Clinically Problem Text: Patient is on chronic narcotics, so may need higher doses of medications for pain management. (8) GERD (gastroesophageal reflux disease) Status: Chronic Response to Treatment: Stable Problem Specific Plan: Monitor Clinically Problem Text: History of peptic ulcer disease. Currently on PPI. -IV PPI until taking oral intake again (9) History of iron deficiency anemia Status: Chronic Response to Treatment: Stable Problem Specific Plan: Monitor Clinically (10) History of pernicious anemia Status: Chronic Response to Treatment: Stable (11) Migraines Status: Chronic Response to Treatment: Stable Problem Text: Continue prophylactic Topamax (12) Depression, major Status: Acute Response to Treatment: Stable Problem Text: Continue Effexor Plan/VTE VTE Prophylaxis Ordered?: No (Pt on chronic xeralto for hx or recurrent DVTs) VTE Exclusion Mechanical Proph: Other (Held for surgery.) Plan/Urinary Catheter Reason for insertion/continuin: Critical Pt monitoring Plan IVF: Continue Anticipated Discharge: Home VS, I&O, 24H, Fishbone Vital Signs/I&O Vital Signs Date Time Temp Pulse Resp B/P (MAP) Pulse Ox O2 Delivery O2 Flow Rate FiO2 12/15/16 08:00 16 95 Room Air 12/15/16 08:00 97.6 86 121/60 (80) 109/63 (78) 12/13/16 17:20 3.0 12/12/16 20:46 50 I&O- Last 24 Hours up to 6 AM 12/15/16 06:00 Intake Total 4860 ml Output Total 1850 ml Balance 3010 ml Laboratory Data 24H LABS Laboratory Tests 2 12/14/16 13:09: Anion Gap 10, Glomerular Filtration Rate > 60.0, Blood Urea Nitrogen 13, Creatinine 1.01, Sodium Level 141, Potassium Level 3.4L, Chloride Level 118H, Carbon Dioxide Level 13L, Calcium Level 7.8L 12/15/16 06:00: Anion Gap 11, Glomerular Filtration Rate > 60.0, Blood Urea Nitrogen 11, Creatinine 0.99, Sodium Level 142, Potassium Level 3.8, Chloride Level 119H, Carbon Dioxide Level 12L, Calcium Level 7.7L, Neutrophils 68, Band Neutrophils 1 , Lymphocytes (Manual) 16, Monocytes (Manual) 7, Eosinophils (Manual) 7H, Basophils (Manual) 1, Platelet Estimate NORMAL, Red Blood Cell Morphology NORMAL CBC/BMP Laboratory Tests 12/14/16 13:09 Calcium Level 7.8 L 12/15/16 06:00 Calcium Level 7.7 L, Red Blood Count 3.31 L, Mean Corpuscular Volume 97.2 H, Mean Corpuscular Hemoglobin 33.8 H, Mean Corpuscular Hemoglobin Concent 34.8, Red Cell Distribution Width 13.0 Microbiology Microbiology 12/12/16 Blood Culture - Final, Complete Salmonella Species 12/12/16 Blood Culture - Preliminary, Resulted No Growth after 48 hours. All Specime... 12/12/16 Gastrointestinal Tract Panel (PCR) - Final, Resulted Salmonella Enteropathogenic E.coli 12/12/16 , Resulted Pending 12/12/16 Urine Culture - Final, Complete Yaritza Campbell Dec 15, 2016 09:58 Pb Hitchcock MD Dec 15, 2016 13:03
[2016-12-15] MEDS: ONDANSETRON 4MG/2ML VIAL (J2405) IV PRN (10:38)
[2016-12-15] MEDS: LevoFLOXacin 500 MG TABLET PO SCH (14:58)
[2016-12-15] MEDS: RIVAROXABAN 20 MG TAB (XARELTO) PO SCH (17:35)
[2016-12-16] MEDS: VENLAFAXINE 25 MG TAB PO SCH ×2 (01:24→09:09)
[2016-12-16 02:00] VITALS: BP 106/59
[2016-12-16] MEDS: LevoFLOXacin 500 MG TABLET PO SCH (05:45)
[2016-12-16] MEDS: NORCO, ANEXSIA 5/325MG TABLET (HYDROcodone/ACETAMINOPHEN) PO PRN (05:49)
[2016-12-16 06:00] VITALS: BP 124/76
[2016-12-16] MEDS ORDERED: LEVA1TAB2 PO (07:29)
[2016-12-16] MEDS: SENOKOT S TAB PO SCH (09:00)
[2016-12-16] MEDS ORDERED: PANTOPRAZOLE 40MG TAB (PROTONIX) PO SCH (09:00)
[2016-12-16] MEDS: medroxyPROGESTERone 5MG TABLET PO SCH (09:05)
[2016-12-16] MEDS: VITAMIN D 1,000 INTERNATIONAL UNITS TABLET PO SCH (09:06)
[2016-12-16] MEDS: PREGABALIN 75 MG CAP(LYRICA) PO SCH (09:06)
[2016-12-16] MEDS: SODIUM BICARBONATE 325 MG TAB PO SCH (09:09)
[2016-12-16] MEDS: TOPIRAMATE (TopAMAX) 25 MG TAB PO SCH (09:09)
[2016-12-16] MEDS: CYANOCOBALAMIN 500 MCG TAB PO SCH (09:09)
--- NOTE | 2016-12-18 13:23 | DSES ---
DATE OF ADMISSION: 12/12/2016 DATE OF DISCHARGE: 12/16/2016 ATTENDING PHYSICIAN: Dr. Pb Hitchcock. PRIMARY CARE PROVIDER: Dr. Zack Galindo. HISTORY OF PRESENT ILLNESS: 51-year-old female who presented to the emergency room with acute onset of abdominal pain. The patient had some left lower quadrant pain with significant diarrhea. The patient denied any blood in her stools and did note some mucous. Had denied eating any undercooked beef or poultry and denied any exposure to unclean water sources. Workup in the emergency room proved gastrointestinal GI panel positive for enteropathic E coli and salmonella. CT abdomen and pelvis demonstrated nonspecific findings of ileus and diverticulosis without diverticulitis. Abdominal x-ray demonstrated multiple air fluid levels in nondistended bowel loops in a nonspecific pattern. The patient was subsequently admitted to family medicine service as a progressive care unit (PCU) patient. The patient status post surgical consult with Dr. Adrian Santiago who took the patient to the operating room for exploratory laparoscopy on 12/13/2016. The patient was found to have multiple adhesions in the midline from the umbilicus extending towards the bladder. No obvious signs of ischemia were noted. The patient's adhesions were taken down from the umbilicus inferiorly. The patient's omentum was adhered to a loop of large intestine in the left lower quadrant. This was transected. Of note, the patient also had a large ovarian cyst on the right side that appeared intact without inflammation or signs of torsion. Please see operative note for further information. The patient remained in PCU status secondary to electrolyte disturbance with hypokalemia, acute kidney injury, elevated lactic acid. The patient's hemoglobin and hematocrit did remain stable throughout hospitalization. Within the last 48 hours, the patient's diet has been advanced. Her IV fluids were stopped. She has been tolerating a regular diet. Continues to pass multiple stools without electrolyte disturbance. States her abdominal pain is nearly resolved. She just has some minor right lower quadrant cramping. On physical exam today, electrolytes show sodium 142, potassium 3.8, BUN 11, creatinine 0.99. Hemoglobin and hematocrit 11 and 32. PHYSICAL EXAMINATION: GENERAL: The patient is resting in bed comfortably eating breakfast. Significant other is at her bedside. Respirations are easy and unlabored. HEENT: Neck is supple without lymphadenopathy or jugular venous distention. CARDIOVASCULAR: Heart rate and rhythm regular. PULMONARY: Lungs are clear to auscultation. ABDOMEN: Soft with on tenderness on palpation throughout. EXTREMITIES: Bilateral lower extremities are without any edema. DISCHARGE DIAGNOSES: 1. Colitis with enteropathic E coli and salmonella infection. 2. Acute kidney injury. 3. Large right ovarian cyst. SECONDARY DIAGNOSES: 1. Status post gastric bypass surgery several years ago. 2. History of recurrent deep venous thrombosis. (DVT). 3. History of chronic back pain. 4. History of gastroesophageal reflux disease, (GERD). 5. History of iron deficiency anemia. 6. History of pernicious anemia. 7. History of migraines. 8. History of depression. PLAN: The patient will be discharged to home. Diet is as tolerated. Activity is as tolerated. She will followup with her primary care provider, Dr. Zack Galindo or MAYO Ramsay within the next 5-7 days for followup. The patient was advised to continue with increasing her oral fluid intact. Reasons to seek immediate medical attention were reviewed with the patient and her significant other. MEDICATIONS ARE FOLLOWS: - levofloxacin 500 mg by mouth daily - acetaminophen with hydrocodone one tablet by mouth every 4 hours as needed for pain - calcium 600 mg by mouth daily - vitamin D 5000 international units by mouth twice a day - vitamin B12 1000 mcg by mouth daily - medroxyprogesterone 10 mg by mouth daily - multivitamin one tablet by mouth daily - omeprazole 40 mg daily - Zofran 4 mg by mouth four times a day - Lyrica 150 mg by mouth three times a day - rizatriptan 10 mg by mouth two hours with a maximum daily dose of two as needed for migraine. - Tizanidine 4 mg by mouth nightly as needed for muscle spasms. - topiramate 50 mg by mouth twice a day - venlafaxine 200 mg by mouth twice a day. The patient is discharged in stable satisfactory condition with no further questions at the time of discharge. [facility]
== END 2016-12-16 09:16 | disposition home or self-care (01) | DRG 710 ==
LOC: M ED 12:41 → M ED INP 16:09 → M ICU 20:45 → M MSPAV 12-15 15:02
PROVIDERS: ADMIT Family Medicine; ATTEND Family Medicine
PROC: 0DNW4ZZ Release Peritoneum, Percutaneous Endoscopic Approach (ICD-10-PCS; principal; 2016-12-12 16:41)
DX: A41.9 Sepsis, unspecified organism (principal); K65.9 Peritonitis, unspecified; E87.2 Acidosis; A02.0 Salmonella enteritis; Z68.43 Body mass index [BMI] 50.0-59.9, adult; E53.8 Deficiency of other specified B group vitamins; A04.0 Enteropathogenic Escherichia coli infection; E66.01 Morbid (severe) obesity due to excess calories; K66.0 Peritoneal adhesions (postprocedural) (postinfection); M54.9 Dorsalgia, unspecified; G43.909 Migraine, unspecified, not intractable, without status migrainosus; F32.9 Major depressive disorder, single episode, unspecified; K21.9 Gastro-esophageal reflux disease without esophagitis; N83.201 Unspecified ovarian cyst, right side; Z98.84 Bariatric surgery status; Z86.718 Personal history of other venous thrombosis and embolism; Z79.899 Other long term (current) drug therapy; Z79.01 Long term (current) use of anticoagulants; Z88.6 Allergy status to analgesic agent; Z88.8 Allergy status to other drugs, medicaments and biological substances; Z88.5 Allergy status to narcotic agent; Z90.710 Acquired absence of both cervix and uterus; Z95.9 Presence of cardiac and vascular implant and graft, unspecified; Z83.3 Family history of diabetes mellitus; Z79.891 Long term (current) use of opiate analgesic

== ENCOUNTER → 2016-12-27 | Outpatient (REF) | payer OTHER ==
[~2016-12-27] MED LIST changes: +LEVA1TAB2 PO; +TIZA4CAP3 PO; +TOPI50TA9 PO
[2016-12-27 16:32] LABS: BASO # 0.1 K/mm3 (0.0-0.2); BASO % 0.8 % (0.0-1.0); EOS % 0.7 % (0.0-3.0); LARGE UNSTAINED CELL # 0.2 K/mm3 (0.0-0.4); LARGE UNSTAINED CELL % 2.3 % (0.0-4.0); LYMPH # 2.8 K/mm3 (1.5-4.5); LYMPH % 36.9 % (24.0-44.0); MEAN CORPUSCULAR HEMOGLOBIN 32.9 pg (27.0-33.0); MEAN CORPUSCULAR HGB CONC 33.1 g/dl (32.0-36.5); MEAN CORPUSCULAR VOLUME 99.4 fl (80.0-96.0); MONO # 0.5 K/mm3 (0.0-0.8); MONO % 6.6 % (0.0-5.0); NEUTROPHILS # 3.8 K/mm3 (1.8-7.7); NEUTROPHILS % 52.7 % (36.0-66.0); PLATELET COUNT, AUTOMATED 388 k/mm3 (150-450); RED CELL DISTRIBUTION WIDTH 13.8 % (11.5-14.5); WHITE BLOOD COUNT 7.3 K/mm3 (4.0-10.0)
[2016-12-28 11:17] LABS: PRETREATED FOLATE FOR RBCFOL 9.9 NG/ML
== END ==
LOC: M SFHCPLAZ 12:52
PROVIDERS: ATTEND Family Medicine
DX: R20.9 Unspecified disturbances of skin sensation (principal)

== ENCOUNTER → 2017-01-13 | Outpatient (CLI) | payer OTHER ==
--- NOTE | 2017-01-29 23:15 | ECWPNPC ---
PATIENT NAME: NEYDA MAYNARD : 1975 GENDER: FEMALE VISIT DATE: 01/13/2017 DISCHARGE DATE: 01/13/17 0949 VISIT LOCKED DATE TIME: PHYSICIAN: RACHELL SOTO PHYSICIAN PAGER NO: [phone] RESOURCE: RACHELL SOTO REASON FOR APPOINTMENT 1. W/C, POST PROCEDURE/MEDS HISTORY OF PRESENT ILLNESS HISTORY OF PRESENT ILLNESS: PAIN THE PATIENT DESCRIBES THE PAIN... FALL RISK SCREENING: SCREENING :TWO OR MORE FALLS WITH INJURY IN THE PAST YEAR DIAGNOSIS (3 OR MORE CO-EXISTING THAT INCREASE FALL RISK): PT. HAS WEAK LEGS TODAY'S VISIT: NOTES: FOLLOWUP FOR LOW BACK PAIN. RATES PAIN TODAY 12/09. IS S/P LESB COMPLETED 11/23/16.HAD LITTLE IMPROVEMENT FOR THE FIRST WEEK AFTER THE INJECTION AND THEN THE PAIN DID IMPROVE . NOTES THAT THE BACK PAIN IS RETURNING AND IS RADIATING TO BOTH BUTTUCKS AND BOTH LEGS. STATES LEGS FEEL LIKE CEMENT. HAD RECENT FALL IN SHOWER. THIS PRODUCED BRUISES AND HAD QUICK INTENSE TWINGE OF BACK PAIN. NO N/T INTO FEET. . CURRENT MEDICATIONS TAKING TOPAMAX 50 MG TABLET 1 TABLET ORALLY TWICE A DAY TAKING MAXALT-CEMENT HANDLER 10 MG TABLET DISPERSIBLE REPEAT WITH ONE TAB IN 2 HOURS IF NO REIEF ORALLY WITH ONSET OF MIGRAINE DAILY NEEDED TAKING CALCIUM 500 MG TABLET 1 TABLET WITH MEALS ORALLY TWICE A DAY TAKING VITAMIN D3 MAXIMUM STRENGTH 5000 UNIT CAPSULE 2 ORALLY TAKING ABILIFY 5 MG TABLET 1 TABLET ORALLY ONCE A DAY TAKING VENLAFAXINE HCL 100 MG TABLET 2 TABLETS WITH FOOD ORALLY BID TAKING VITAMIN B-12 1000 MCG TABLET 1 TABLET ORALLY ONCE A DAY OTC TAKING MULTIVIT-IRON ORALLY DAILY TAKING NORCO 10-325 MG TABLET 1 TABLET NEEDED ORALLY EVERY4 HRS PRN PAIN MDD=6 TAKING LYRICA 150 MG CAPSULE 1 CAPSULE ORALLY FOR PAIN THREE TIMES DAILY MDD3 TAKING TIZANIDINE HCL 4 MG TABLET 1 TABLET NEEDED ORALLY AT BEDTIME MAY REPEAT IN 5 HRS MDD2 TAKING XARELTO 20 TABLET 1 TABLET WITH FOOD ORALLY QD TAKING LASIX 20 MG TABLET 1 TABLET ORALLY ONCE A DAY NEEDED FOR EDEMA TAKING ZOFRAN 4 MG TABLET 1 ORALLY QID PRN NAUSEA TAKING OMEPRAZOLE 40 MG CAPSULE DELAYED RELEASE 1 CAP ORALLY DAILY, NOTES: 11/22/16 0900 TAKING MIRALAX POWDER 2 CAP(S) ORALLY BID PRN DISCONTINUED XARELTO 20 MG TABLET 1 TABLET WITH FOOD ORALLY DAILY, NOTES: 11/18/16 1830 MEDICATION LIST REVIEWED AND RECONCILED WITH THE PATIENT PAST MEDICAL HISTORY GERD MIGRAINE HEADACHE, COMMON TYPE-JUNE 2009 MRI OF THE BRAIN NORMAL EXCEPT FOR 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 VELEZ GERD-JUNE 2009 EGD WITH LA GRADE A REFLUX ESOPHAGITIS AND HIATAL HERNIA GRADE 1 DIASTOLIC DYSFUNCTION BY MAY 2010 TTE-ANTECOL DEPRESSION C H/O INTENTIONAL TRAMADOL OD 06/2013 REQUIRING MECHANICAL VENTILATION H/O BILATERAL PULMONARY EMBOLI INVOLVING B CENTRAL PA 06/2013, - B LE DVT US-FAVOR 2 TO IMMOBILITY/NO HYPERCOAG W/U DONE/NO PREVIOUS VTE/ - FVL, PT GENE VARIANT, PROTEIN C/S LEVEL, ACL GASTRIC ULCER BY EGD [id number] RLE PARTIAL DVT POPLITEAL VEIN BY 08/02/14 [place]TO 15 B[place] [facility] [place], NORMAL PROTEIN C/S/ATIII, -ACL, - HPP (FOR LA) POSSIBLE ROYAL-PATIENT DEFERRED NPSG EXCISION L AXILLARY LN-BY PATHOLOGY REACTIVE, - FOR MALIGNANCY C BLACK TATTOO PIGMENT-01/2016-DIAZ 04/2016 -JONY, RF, CCP 5, CRP <0.3/ESR 15 ACUTE DIVERTICULITIS-FIRST EPISODE-SEEN BY 08/2016 CT ALLERGIES NSAIDS: SWELLING: SIDE EFFECTS VIOXX: HIVES: ALLERGY NEURONTIN: HIVES: ALLERGY BUTRANS TRANSDERMAL PATCH: VOMITING/FELT DRUNK: ALLERGY GABAPENTIN: DRUNK FEELING: SIDE EFFECTS SURGICAL HISTORY BTL C SECTION X 2 GASTRIC BYPASS ENDOSCOPY IVC FILTER PLACED/REMOVED-BRET 11/18/2014, [id number] PATHOLOGY 12/09/14 SOCIAL HISTORY GENERAL: TOBACCO USE ARE YOU A:NONSMOKER BMI CARE GOAL FOLLOW-UP ABOVE NORMAL BMI FOLLOW-UPGIVING ENCOURAGEMENT TO EXERCISE ALCOHOL SCREENING DID YOU HAVE A DRINK CONTAINING ALCOHOL IN THE PAST YEAR?YES HOW OFTEN DID YOU HAVE A DRINK CONTAINING ALCOHOL IN THE PAST YEAR?FOUR OR MORE TIMES A WEEK (4 POINTS) HOW MANY DRINKS DID YOU HAVE ON A TYPICAL DAY WHEN YOU WERE DRINKING IN THE PAST YEAR?10 OR MORE (4 POINTS) HOW OFTEN DID YOU HAVE SIX OR MORE DRINKS ON ONE OCCASION IN THE PAST YEAR?DAILY OR ALMOST DAILY (4 POINTS) [id number] INTERPRETATIONPOSITIVE SEXUAL HX HAD SEX IN THE LAST 12 MONTHS (VAGINAL, ORAL, OR ANAL)?YES WITHMEN ONLY USE PROTECTION?NO HAVE YOU EVER HAD AN STD?YES CHLAMYDIA?YES GC?YES MARITAL STATUS: . JUDAISM [id number] LATTER-DAY LANGUAGE LANGUAGES SPOKEN:UPPER SORBIAN LEARNING BARRIERS / SPECIAL NEEDS CHANGE FROM LAST VISIT?YES BARRIERS TO LEARNING?NO HEARING IMPAIRED?NO VISION IMPAIRED?NO COGNITIVELY IMPAIRED?NO READINESS TO LEARN?YES LEARNING PREFERENCES?NO LEARNING CAPABILITIES PRESENT?YES EMOTIONAL BARRIERS?NO SPECIAL DEVICES?YES :CANE OPTION TRADER NEEDED?NO NEW PATIENT PAIN DIARY TODAY'S VISIT NOTES, FROM 0-10, WHAT LEVEL IS YOUR PAIN TODAY? 0. PAIN CLINIC PFS, CLERGY, PUBLIC HEALTH REFERRALS HAS THE PATIENT BEEN EDUCATED REGARDING HIS/HER PLAN OF CARE?YES HAS THE PATIENT BEEN EDUCATED REGARDING PAIN, THE RISK FOR PAIN, THE IMPORTANCE OF EFFECTIVE PAIN MANAGEMENT, AND THE PAIN ASSESSMENT PROCESS?YES ADVANCE DIRECTIVES HEALTH CARE PROXY?NO WOULD YOU LIKE MORE INFORMATION?YES DO YOU HAVE A DNR?NO WOULD YOU LIKE MORE INFORMATION?NO LIVING WILL?NO WOULD YOU LIKE MORE INFORMATION?NO POWER OF PAPER COATER?NO WOULD YOU LIKE MORE INFORMATION?NO HOSPITALIZATION/MAJOR DIAGNOSTIC PROCEDURE DEHYDRATION, [facility] 06/2013 OVERDOSE OF TRAMADOL, PULMONARY EMBOLISM 07/13 [facility] [place] SUIDICAL IDEATION/ETHOH ABUSE (DRINKING 6-12 BEERS DAILY) 08/03-08/05/16 EP E. COLI/SALMONELLA COLITIS, BCX 05/02 SALMONELLA//SBO S/O EXPLORATORY LAPAROTOMY-BRYDEN, ABIODUN CR TO 1.3 12/12- REVIEW OF SYSTEMS REVIEWED BY: PROVIDER: RACHELL HORNP . CONSTITUTIONAL: ANY CHANGE IN YOUR MEDICAL CONDITION? NO . CHILLS NO . FEVER NO . INFECTION: DO YOU HAVE NEW INFECTIONS? NO . DO YOU HAVE HISTORY OF MRSA? NO . MUSCULOSKELETAL: ANY NEW PATTERNS OF PAIN OR NUMBNESS? YES . GASTROENTEROLOGY: ANY NEW CHANGE IN BOWEL CONTROL? NO . GENITOURINARY: ANY NEW CHANGE IN BLADDER CONTROL? NO . IS THERE A CHANCE YOU COULD BE ? NO . HEMATOLOGY/LYMPH: DO YOU TAKE ANY BLOOD THINNERS? (FOR EXAMPLE- COUMADIN, PLAVIX, AGGRENOX, PLATEL, PRADAXA, OR XARELTO) NO . WHEN WAS YOUR LAST DOSE? DATE: TIME: 11/11/16@1800 <11/11/16@1800> . NEUROLOGY: HAVE YOU FALLEN IN THE PAST 6 MONTHS? YES . ANY NEW EXTREMITY NUMBNESS OR WEAKNESS? YES . CARDIOLOGY: DO YOU HAVE A PACEMAKER OR DEFIBRILLATOR? NO . RESPIRATORY: HAVE YOU BEEN SICK IN THE PAST WEEK? NO . FEVER NO . FLU LIKE SYMPTOMS? NO . COUGH NO . INTEGUMENTARY: DO YOU HAVE ANY RASHES OR OPEN SORES? NO . ALLERGIC/IMMUNO: ARE YOU ALLERGIC TO SHELLFISH OR IV DYE? NO . ANY NEW ALLERGIES? NO . PSYCHIATRIC: DO YOU HAVE THOUGHTS OF HURTING YOURSELF OR SOMEONE ELSE? NO . ARE YOU ABUSED, NEGLECTED, OR IN AN UNSAFE ENVIRONMENT? NO . ENDOCRINOLOGY: ARE YOU DIABETIC? NO . OTHER: DO YOU NEED ANY PRESCRIPTIONS? NO . IF YES, PLEASE LIST: ____ . ANY NEW PROBLEMS WITH YOUR MEDICATIONS? NO . WHEN DID YOU LAST EAT? ____ . WHEN DID YOU LAST DRINK? ____ . WHAT DID YOU LAST DRINK? ____ . NAME OF PERSON DRIVING YOU HOME? ____ . DO YOU HAVE ANY OTHER QUESTIONS OR CONCERNS NO . VITAL SIGNS WT 260.4 LBS, HT 62 IN, BMI 47.62 INDEX, BP 108/59 MM HG, HR 68 /MIN, RR 18 /MIN, TEMP 98.3 F, OXYGEN SAT % 97, SAFE IN ENV? (Y/N) YES, REVIEWED BY: VD. EXAMINATION GENERAL EXAMINATION: PSYCHALERT , ORIENTED X 3 , APPROPRIATE MOOD AND AFFECT , FRUSTRATED. LUNGS:CLEAR TO AUSCULTATION BILATERALLY. HEART:HEART RATE REGULAR. MUSCULOSKELETAL:MUSCLE STRENGTH TESTING 5/5 BILATERAL LOWER EXTREMITIES. SOME GENERALIZED WEAKNESS ON BILATERAL QUADRICEPS. NO FOOT DROP. POINT TENDERNESS OVER LUMBAR SPINOUS PROCESSES AND OVER THE LUMBOSACRAL AXIS.. 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 HAS NOT BEEN ABLE TO SLEEP SINCE ZOLPIDEM STOPPED. HAD NO ADVERSE EFFECTS FROM AMBIEN. WILL RESTART.ON XARALTO - HOLD FOR 3 DAYS AND DO PROCEDURE ON DAY 4. CLINICAL NOTES: ISTOP REGISTRY REVIEWED AND DEMNOSTRATES COMPLLIANCE (#[id number]) . BRINGS IN MEDICATIONS WHICH IS APPROPRIATE FOR WHAT WAS DISPENSED. RECENT URINE TOXICOLOGY REVIEWED. NO UNAUTHORIZED MEDICATIONS. NO ILLICIT SUBSTANCES AND PRESCRIBED MEDICATIONS WERE PRESENT. PROCEDURES PN WORKMANS' COMP OPINION IN YOUR OPINION, WAS THE INCIDENT THAT THE PATIENT DESCRIBED THE COMPETENT MEDICAL CAUSE OF THIS INJURY/ILLNESS? YES ARE THE PATIENT'S COMPLAINTS CONSISTENT WITH HIS/HER HISTORY OF THE INJURY/ILLNESS? YES IS THE PATIENT'S HISTORY OF THE INJURY/ILLNESS CONSISTENT WITH YOUR OBJECTIVE FINDING? YES WHAT IS THE PERCENTAGE OF TEMPORARY IMPAIRMENT? MODERATE TO MARKED = 66.7% IS THE PATIENT WORKING? NO DOCTOR ON SITE: ASTRID MARQUEZ MD PREVENTIVE MEDICINE PT. GIVEN VERBAL INSTRUCTIONS ON LUMBAR FACET BLOCKS. PROCEDURE CODES FA211 ESTABILISHED PATIENT [facility] FAC[facility] CHARGE DISPOSITION & COMMUNICATION FOLLOW UP AFTER INJECTION (REASON: CHECK AUTH FOR BILATERAL THERAPEUTIC LUMBAR FACET BLOCK AT L4-5 AND L5-S1) ELECTRONICALLY SIGNED BY JAMILA DUDLEY ON 01/29/2017 AT 09:36 PM EDT DISCLAIMER : THIS IS A VISIT SUMMARY EXTRACTED FROM THE [employer] CHART. IT IS NOT A COPY OF THE [employer] PROGRESS NOTE. SHIMA
== END ==
LOC: M PAIN 08:30
PROVIDERS: ATTEND Nurse Practitioner Family
DX: M47.26 Other spondylosis with radiculopathy, lumbar region (principal); M12.88 Other specific arthropathies, not elsewhere classified, other specified site; E55.9 Vitamin D deficiency, unspecified; E53.8 Deficiency of other specified B group vitamins; K21.9 Gastro-esophageal reflux disease without esophagitis; Z79.891 Long term (current) use of opiate analgesic; Z79.899 Other long term (current) drug therapy; Z88.8 Allergy status to other drugs, medicaments and biological substances; Z98.84 Bariatric surgery status

== ENCOUNTER → 2017-03-22 | Outpatient (REF) | payer OTHER | LOC: M SFHCPLAZ 11:23 | PROVIDERS: ATTEND Family Medicine | DX: E55.9 Vitamin D deficiency, unspecified (principal); E53.8 Deficiency of other specified B group vitamins ==

== ENCOUNTER → 2017-04-17 | Outpatient (CLI) | payer OTHER | LOC: M ADAMS 08:30 | PROVIDERS: ATTEND Physician Assistant Medical | DX: J02.9 Acute pharyngitis, unspecified (principal) ==

== ENCOUNTER → 2017-04-19 | Outpatient (CLI) | payer OTHER ==
--- NOTE | 2017-04-21 00:50 | ECWPNPC ---
PATIENT NAME: NEYDA MAYNARD : 1975 GENDER: FEMALE VISIT DATE: 04/19/2017 DISCHARGE DATE: 04/19/17 1621 VISIT LOCKED DATE TIME: PHYSICIAN: RACHELL SOTO PHYSICIAN PAGER NO: [phone] RESOURCE: RACHELL SOTO REASON FOR APPOINTMENT 1. W/C HISTORY OF PRESENT ILLNESS HISTORY OF PRESENT ILLNESS: PAIN THE PATIENT DESCRIBES THE PAIN... FALL RISK SCREENING: SCREENING :NO FALLS IN THE PAST YEAR TODAY'S VISIT: NOTES: WC FOLLOWUP FOR LOW BACK PAIN. IS S/P BILATERAL THERAPEUTIC LUMBAR FACET BLOCK AT L4-5 AND L5-S1 COMPLETED ON 02/24/17. NOTES THIS PROVIDED SIGNIFICANT IMPROVEMENT OF 5- - 75 % ON THE LEFT SIDE OF THE LOW BACK AND UPPER SACRUM. RIGHT SIDE OF LOW BACK IS VERY PAINFUL. NOTES SHE CAN NOT LAY ON RIGHT HIP AREA. HAS RETURNED TO WORK AND THIS BACK PAIN MAKES IT DIFFICULT TO STAND, WALK, PUS OR PULL. RATES PAIN TODAY 7/10 WITH 90 % OF THE DISCOMFORT IN LEFT LOW BACK WITH RADIATION TO THE BUTTUCK AND POSTERIOR THIGH TO THE LEVEL OF THE KNEE. . CURRENT MEDICATIONS TAKING TOPAMAX 50 MG TABLET 1 TABLET ORALLY TWICE A DAY TAKING CALCIUM 500 MG TABLET 1 TABLET WITH MEALS ORALLY TWICE A DAY TAKING VITAMIN D3 MAXIMUM STRENGTH 5000 UNIT CAPSULE 1 CAPSULE ORALLY ONCE A DAY TAKING VITAMIN B-12 1000 MCG TABLET 1 TABLET ORALLY ONCE A DAY OTC TAKING MULTIVIT-IRON ORALLY DAILY TAKING NORCO 10-325 MG TABLET 1 TABLET NEEDED ORALLY EVERY4 HRS PRN PAIN MDD=6 TAKING LYRICA 150 MG CAPSULE 1 CAPSULE ORALLY FOR PAIN THREE TIMES DAILY MDD3 TAKING XARELTO 20 TABLET 1 TABLET WITH FOOD ORALLY ONCE A DAY TAKING LASIX 20 MG TABLET 1 TABLET ORALLY ONCE A DAY NEEDED FOR EDEMA TAKING MIRALAX POWDER 2 CAP(S) ORALLY BID PRN TAKING ZOLPIDEM TARTRATE 10 MG TABLET 1 TABLET AT BEDTIME NEEDED ORALLY ONCE A DAY TAKING ZOFRAN 4 MG TABLET 1 ORALLY QID PRN NAUSEA TAKING OMEPRAZOLE 40 MG CAPSULE DELAYED RELEASE 1 CAP ORALLY DAILY TAKING NORETHINDRONE ACETATE 5 MG TABLET 1 TABLET ORALLY TAKING LUPRON DEPOT (3-MONTH) 11.25 MG KIT INTRAMUSCULAR EVERY 3 MONTHS TAKING VENLAFAXINE HCL 100 MG TABLET 1 TABLET WITH FOOD ORALLY THREE TIMES A DAY TAKING ABILIFY 5 MG TABLET 1 TABLET ORALLY ONCE DAILY TAKING MAXALT-CONFERENCE COORDINATOR 10 MG TABLET DISPERSIBLE REPEAT WITH ONE TAB IN 2 HOURS IF NO REIEF ORALLY WITH ONSET OF MIGRAINE DAILY NEEDED TAKING AMOXICILLIN-POT CLAVULANATE 500-125 MG TABLET ORALLY EVERY 12 HRS NOT-TAKING TIZANIDINE HCL 4 MG TABLET 1 TABLET NEEDED ORALLY AT BEDTIME MAY REPEAT IN 5 HRS MDD2 MEDICATION LIST REVIEWED AND RECONCILED WITH THE PATIENT PAST MEDICAL HISTORY GERD MIGRAINE HEADACHE, COMMON TYPE-JUNE 2009 MRI OF THE BRAIN NORMAL EXCEPT FOR 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 VELEZ GERD-JUNE 2009 EGD WITH LA GRADE A REFLUX ESOPHAGITIS AND HIATAL HERNIA GRADE 1 DIASTOLIC DYSFUNCTION BY MAY 2010 TTE-ANTECOL DEPRESSION C H/O INTENTIONAL TRAMADOL OD 06/2013 REQUIRING MECHANICAL VENTILATION H/O BILATERAL PULMONARY EMBOLI INVOLVING B CENTRAL PA 06/2013, - B LE DVT US-FAVOR 2 TO IMMOBILITY/NO HYPERCOAG W/U DONE/NO PREVIOUS VTE - FVL, PT GENE VARIANT, PROTEIN C/S LEVEL, ACL GASTRIC ULCER BY EGD [id number] RLE PARTIAL DVT POPLITEAL VEIN BY 08/02/14 US-XARELTO 15 BID BY [facility]-07/2014 -LA, NORMAL PROTEIN C/S/ATIII, -ACL, - HPP (FOR LA) POSSIBLE ROYAL-PATIENT DEFERRED NPSG EXCISION L AXILLARY LN-BY PATHOLOGY REACTIVE, - FOR MALIGNANCY C BLACK TATTOO PIGMENT-01/2016-DIAZ 04/2016 -JONY, RF, CCP 5, CRP <0.3/ESR 15 ACUTE DIVERTICULITIS-FIRST EPISODE-SEEN BY 08/2016 CT ALLERGIES NSAIDS: SWELLING: SIDE EFFECTS VIOXX: HIVES: ALLERGY NEURONTIN: HIVES: ALLERGY BUTRANS TRANSDERMAL PATCH: VOMITING/FELT DRUNK: ALLERGY GABAPENTIN: DRUNK FEELING: SIDE EFFECTS CYMBALTA: HALLUCINATIONS: SIDE EFFECTS SURGICAL HISTORY BTL C SECTION X 2 GASTRIC BYPASS ENDOSCOPY IVC FILTER PLACED/REMOVED-BRET 11/18/2014, [id number] PATHOLOGY SMALL BOWEL OBSTRUCTION 12/09/14 SOCIAL HISTORY GENERAL: TOBACCO USE ARE YOU A:NONSMOKER BMI CARE GOAL FOLLOW-UP ABOVE NORMAL BMI FOLLOW-UPGIVING ENCOURAGEMENT TO EXERCISE ALCOHOL SCREENING DID YOU HAVE A DRINK CONTAINING ALCOHOL IN THE PAST YEAR?YES HOW OFTEN DID YOU HAVE A DRINK CONTAINING ALCOHOL IN THE PAST YEAR?FOUR OR MORE TIMES A WEEK (4 POINTS) HOW MANY DRINKS DID YOU HAVE ON A TYPICAL DAY WHEN YOU WERE DRINKING IN THE PAST YEAR?10 OR MORE (4 POINTS) HOW OFTEN DID YOU HAVE SIX OR MORE DRINKS ON ONE OCCASION IN THE PAST YEAR?DAILY OR ALMOST DAILY (4 POINTS) [id number] INTERPRETATIONPOSITIVE SEXUAL HX HAD SEX IN THE LAST 12 MONTHS (VAGINAL, ORAL, OR ANAL)?YES WITHMEN ONLY USE PROTECTION?NO HAVE YOU EVER HAD AN STD?YES CHLAMYDIA?YES GC?YES MARITAL STATUS: . 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 0. PAIN CLINIC PFS, CLERGY, PUBLIC HEALTH REFERRALS WAS THE PROVIDER NOTIFIED OF ANY PERTINENT INFO?YES HAS THE PATIENT BEEN EDUCATED REGARDING HIS/HER PLAN OF CARE?YES PLEASE DOCUMENT ANY ADDTIONAL DETAILS. BILATERAL LUMBAR FACET BLOCK THERAPEUTIC HAS THE PATIENT BEEN EDUCATED REGARDING PAIN, THE RISK FOR PAIN, THE IMPORTANCE OF EFFECTIVE PAIN MANAGEMENT, AND THE PAIN ASSESSMENT PROCESS?YES REVIEWED BY: DS. ADVANCE DIRECTIVES HEALTH CARE PROXY?YES NAME OF HCP MARIAM PRESTON (MOTHER) CONTACT # FOR HCP [phone] DO YOU HAVE A COPY WITH YOU? STATES A COPY IS ALREADY AVAILABLE IN COMPUTER DO YOU HAVE A DNR?NO WOULD YOU LIKE MORE INFORMATION?NO LIVING WILL?NO WOULD YOU LIKE MORE INFORMATION?NO POWER OF TYPE PHOTOGRAPHY SUPERVISOR?NO WOULD YOU LIKE MORE INFORMATION?NO HOSPITALIZATION/MAJOR DIAGNOSTIC PROCEDURE DEHYDRATION, [facility] 06/2013 OVERDOSE OF TRAMADOL, PULMONARY EMBOLISM 07/13 [facility] [employer]-MDD C SUIDICAL IDEATION/ETHOH ABUSE (DRINKING 6-12 BEERS DAILY) 08/03-08/05/16 EP E. COLI/SALMONELLA COLITIS, BCX 05/02 SALMONELLA//SBO S/O EXPLORATORY LAPAROTOMY-BRYDEN, ABIODUN CR TO 1.3 12/12- REVIEW OF SYSTEMS REVIEWED BY: PROVIDER: . CONSTITUTIONAL: ANY CHANGE IN YOUR MEDICAL CONDITION? NO . CHILLS NO . FEVER NO . INFECTION: DO YOU HAVE NEW INFECTIONS? YES . DO YOU HAVE HISTORY OF MRSA? NO . MUSCULOSKELETAL: ANY NEW PATTERNS OF PAIN OR NUMBNESS? YES . GASTROENTEROLOGY: ANY NEW CHANGE IN BOWEL CONTROL? NO . GENITOURINARY: ANY NEW CHANGE IN BLADDER CONTROL? NO . IS THERE A CHANCE YOU COULD BE ? NO . HEMATOLOGY/LYMPH: DO YOU TAKE ANY BLOOD THINNERS? (FOR EXAMPLE- COUMADIN, PLAVIX, AGGRENOX, PLATEL, PRADAXA, OR XARELTO) YES, XARELTO . WHEN WAS YOUR LAST DOSE? DATE: TIME: . NEUROLOGY: HAVE YOU FALLEN IN THE PAST 6 MONTHS? NO . ANY NEW EXTREMITY NUMBNESS OR WEAKNESS? NO . CARDIOLOGY: DO YOU HAVE A PACEMAKER OR DEFIBRILLATOR? NO . RESPIRATORY: HAVE YOU BEEN SICK IN THE PAST WEEK? NO . FEVER NO . FLU LIKE SYMPTOMS? NO . COUGH NO . INTEGUMENTARY: DO YOU HAVE ANY RASHES OR OPEN SORES? NO . ALLERGIC/IMMUNO: ARE YOU ALLERGIC TO SHELLFISH OR IV DYE? NO . ANY NEW ALLERGIES? NO . PSYCHIATRIC: DO YOU HAVE THOUGHTS OF HURTING YOURSELF OR SOMEONE ELSE? NO . ARE YOU ABUSED, NEGLECTED, OR IN AN UNSAFE ENVIRONMENT? NO . ENDOCRINOLOGY: ARE YOU DIABETIC? NO . OTHER: DO YOU NEED ANY PRESCRIPTIONS? YES . IF YES, PLEASE LIST: AMBIEN, HYDROCODONE . ANY NEW PROBLEMS WITH YOUR MEDICATIONS? NO . WHEN DID YOU LAST EAT? ____ . WHEN DID YOU LAST DRINK? ____ . WHAT DID YOU LAST DRINK? ____ . NAME OF PERSON DRIVING YOU HOME? ____ . DO YOU HAVE ANY OTHER QUESTIONS OR CONCERNS NO . PSYCHOLOGY: SLEEP DISTURBANCES MUCH IMPROVED WITH AMBIEN . VITAL SIGNS WT 255.8 LBS, HT 62 IN, BMI 46.78 INDEX, BP 141/74 MM HG, HR 80 /MIN, RR 18 /MIN, TEMP 97.6 F, OXYGEN SAT % 96%, NA INITIALS TL 1527, REVIEWED BY: LS. EXAMINATION GENERAL EXAMINATION: PSYCHALERT , ORIENTED X 3 , APPROPRIATE MOOD AND AFFECT , FRUSTRATED. LUNGS:CLEAR TO AUSCULTATION BILATERALLY. HEART:HEART RATE REGULAR. MUSCULOSKELETAL:MUSCLE STRENGTH TESTING 5/5 LEFT LOWER EXTREMITY AND 4+/5 RIGHT LOWER EXTREMITY. . SOME GENERALIZED WEAKNESS ON BILATERAL QUADRICEPS. NO FOOT DROP BUT RIGHT ANKLE ROTATES MEDIALLY WITH AMBULATION. . POINT TENDERNESS OVER LUMBAR PARAVERTEBRAL MUSCLES AND ACROSS THE LUMBAR FACETS, RIGHT GREATHER THAN LEFT. SLOW TO RISE TO A STANDING POSITION. POSTURE UPRIGHT. . 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 REVIEWED OPTION OF DIAGNOSTIC LUMBAR FACET BLOCKS AND POSSIBLE READIOFREQUENCY DENERVATION IF THE DIAGNOSTIC BLOCK WERE SUCCESSFUL. PT WAS INTERSTED IN PURSUING THIS OPTION IT MAY BE GIVE HER LONGER LASTING RELIEF. HOLD XARALTO FOR 3 DAYS PRIOR TO INJECTIONUPDATE NARCOTIC AGREEMENTUTOX TODAY. PROCEDURES PN WORKMANS' COMP OPINION IN YOUR OPINION, WAS THE INCIDENT THAT THE PATIENT DESCRIBED THE COMPETENT MEDICAL CAUSE OF THIS INJURY/ILLNESS? YES ARE THE PATIENT'S COMPLAINTS CONSISTENT WITH HIS/HER HISTORY OF THE INJURY/ILLNESS? YES IS THE PATIENT'S HISTORY OF THE INJURY/ILLNESS CONSISTENT WITH YOUR OBJECTIVE FINDING? YES WHAT IS THE PERCENTAGE OF TEMPORARY IMPAIRMENT? MODERATE TO MARKED = 66.7% IS THE PATIENT WORKING? YES , ANY RESTRICTIONS? UNKNOWN DOCTOR ON SITE: ASTRID MARQUEZ MD PROCEDURE CODES FA211 ESTABILISHED PATIENT [facility] CHARGE DISPOSITION & COMMUNICATION FOLLOW UP 6 WEEKS - BACK (REASON: WC CHECK AUTH DIAGNOSTIC L4-5 AND L5-S1 RIGHT ) ELECTRONICALLY SIGNED BY JAMILA DUDLEY ON 04/20/2017 AT 05:37 PM EST DISCLAIMER : THIS IS A VISIT SUMMARY EXTRACTED FROM THE [employer] CHART. IT IS NOT A COPY OF THE [employer] PROGRESS NOTE. SHIMA
== END ==
LOC: M PAIN 14:45
PROVIDERS: ATTEND Nurse Practitioner Family
DX: G89.29 Other chronic pain (principal); M47.26 Other spondylosis with radiculopathy, lumbar region; M12.88 Other specific arthropathies, not elsewhere classified, other specified site; K21.9 Gastro-esophageal reflux disease without esophagitis; G43.009 Migraine without aura, not intractable, without status migrainosus; E66.01 Morbid (severe) obesity due to excess calories; Z68.42 Body mass index [BMI] 45.0-49.9, adult; I82.409 Acute embolism and thrombosis of unspecified deep veins of unspecified lower extremity; K27.9 Peptic ulcer, site unspecified, unspecified as acute or chronic, without hemorrhage or perforation; E55.9 Vitamin D deficiency, unspecified; E53.8 Deficiency of other specified B group vitamins; D50.9 Iron deficiency anemia, unspecified; F32.9 Major depressive disorder, single episode, unspecified; Z88.6 Allergy status to analgesic agent; Z88.5 Allergy status to narcotic agent; Z88.8 Allergy status to other drugs, medicaments and biological substances; Z79.01 Long term (current) use of anticoagulants; Z79.891 Long term (current) use of opiate analgesic; Z79.899 Other long term (current) drug therapy

== ENCOUNTER → 2017-06-02 | Outpatient (REF) | payer OTHER ==
[2017-06-02 15:59] LABS: PTH INTACT 71.6 PG/ML (14.0-72.0); TOTAL 25(OH) VITAMIN D 28.1 NG/ML (30.0-100.0)
[2017-06-02 16:23] LABS: BASO # 0.1 10^3/uL (0.0-0.2); BASO % 0.6 % (0.0-1.0); EOS # 0.1 10^3/uL (0.0-0.50); HEMATOCRIT 41.6 % (36.0-47.0); HEMOGLOBIN 13.8 g/dl (12.0-16.0); IMMATURE GRANULOCYTE % 0.4 % (0-0); LYMPH # 2.9 10^3/uL (1.5-4.5); LYMPH % 36.3 % (24.0-44.0); MEAN CORPUSCULAR HEMOGLOBIN 33.3 pg (27.0-33.0); MEAN CORPUSCULAR HGB CONC 33.2 g/dl (32.0-36.5); MEAN CORPUSCULAR VOLUME 100.2 fl (80.0-96.0); MONO # 0.5 10^3/uL (0.0-0.8); NEUTROPHILS # 4.5 10^3/uL (1.8-7.7); NEUTROPHILS % 55.7 % (36.0-66.0); PLATELET COUNT, AUTOMATED 334 10^3/uL (150-450); RED BLOOD COUNT 4.15 10^6/uL (4.00-5.40); RED CELL DISTRIBUTION WIDTH 13.2 % (11.5-14.5)
[2017-06-02 16:31] LABS: ALBUMIN 3.8 GM/DL (3.2-5.2); ALBUMIN/GLOBULIN RATIO 1.12 (1.00-1.93); ALKALINE PHOSPHATASE 67 U/L (45-117); ALT/SGPT 15 U/L (12-78); ANION GAP 7 MEQ/L (8-16); AST/SGOT 16 U/L (7-37); BILIRUBIN,TOTAL 0.4 MG/DL (0.2-1.0); BLOOD UREA NITROGEN 11 MG/DL (7-18); C REACTIVE PROTEIN QUANTITATIV 0.49 MG/DL (0.00-0.30); CALCIUM LEVEL 8.9 MG/DL (8.5-10.1); CARBON DIOXIDE LEVEL 24 MEQ/L (21-32); CHLORIDE LEVEL 110 MEQ/L (98-107); CHOLESTEROL LEVEL 226 MG/DL (<200); CHOLESTEROL RISK RATIO 4.346 (<5); CPK CREATINE PHOSPHOKINASE 118 U/L (26-192); CREATININE FOR GFR 0.87 MG/DL (0.55-1.30); FERRITIN 8 NG/ML (8-252); GLOMERULAR FILTRATION RATE > 60.0 (>58); GLUCOSE, FASTING 87 MG/DL (70-100); HDL CHOLESTEROL 52 MG/DL (>40); IRON (FE) 87 UG/DL (50-170); LDL CHOLESTEROL 137.4 MG/DL (<100); NON-HDL-C 174 MG/DL; PERCENT SATURATION 19.4 % (13.2-45.0); POTASSIUM SERUM 3.9 MEQ/L (3.5-5.1); SODIUM LEVEL 141 MEQ/L (136-145); TOTAL IRON BINDING CAPACITY 449 UG/DL (250-450); TOTAL PROTEIN 7.2 GM/DL (6.4-8.2); TRIGLYCERIDES LEVEL 183 MG/DL (<150)
[2017-06-02 16:45] LABS: ESTIMATED AVERAGE GLUCOSE 111 MG/DL (60-110); HEMOGLOBIN A1c 5.5 %
== END ==
LOC: M SFHCPLAZ 13:21
DX: E55.9 Vitamin D deficiency, unspecified (principal); Z98.890 Other specified postprocedural states; E53.8 Deficiency of other specified B group vitamins

== ENCOUNTER → 2017-08-17 | Outpatient (CLI) | payer OTHER ==
[~2017-08-17] MED LIST changes: -/ESOM40CA; -/ESOM40CA OR; -/PANT40TA PO; -/WARF5TA PO; -ABIL1TAB11 PO; -ABIL5TAB OR; -ABIL5TAB PO; -ACET500C; -ACET500C OR; -AMBI10TA PO; -AMBI5TAB PO; -ARIP5TA PO; -B-1210009 PO; -BACL1TAB9 PO; -BODY PO; +BUPIVACAINE HCL 0.25% 30 ML VIAL As Ordered; -BUTRAN TD; -CALC500T49 PO; -CALC600T31 PO; -CALC600T60 PO; -CARA1TAB2 PO; -CENTTAB47 PO; -CHILCHW18 PO; -CIPR-249 PO; -COLA100C5 PO; -COUM10TA PO; -COUM1TAB17 PO; -CYTO100T PO; -EFFE150C PO; -EFFE75CA75 OR; -FERR325T OR; -FERR32TA PO; -FISH500C PO; -FLAG500T PO; -FLEXERIL PO; -HYDR-3719 PO; -HYDRCRY PO; -IRON18TA PO; -IRON28TA; -IRONCAP2 PO; -IRONTAB3 PO; +ISOVUE-M 300 61% 15ML VIAL (Q9967) As Ordered; -LASI40TA; -LASI40TA OR; -LEVA1TAB2 PO; -LIDO5DIS41 TD; +LIDOCAINE 1% SDV INJ 30 ML VIAL As Ordered; -LIPI10TA OR; -LYRI150C PO; -LYRI75CA PO; -MAXA10TA14 PO; -MAXA10TA17; -MAXA10TA17 OR; -MEDR10TA PO; -MELA1CAP2 PO; -MIRA3350 PO; -MISO200T56 PO; -MOTR200T4 PO; -MULTLIQ7 PO; -NEXI40CA PO; -NORCOTAB PO; -OMEP40CA2 PO; -ONDA4TAB5 PO; -PANT40TA2 PO; -PREG50CA PO; -PREN1CHW PO; -PRENTAB31 PO; -PRENTAB44 PO; -PROZ10CA7 PO; -PROZ40CA PO; -RIZA10TA4 PO; -ROBA750T4 PO; -SUCR1SUS PO; -SUCR1TA PO; -TIZA4CAP3 PO; -TOPA1TAB PO; -TOPA50TA8 PO; -TOPI25TA2; -TOPI50TA OR; -TOPI50TA9 PO; -TRAM50TA2 PO; -TYLE325T5 PO; -VENL100T PO; -VENL37TA PO; -VENL50TA2 PO; -VENL75TA2 PO; -VICO5TAB OR; -VICO5TAB PO; -VICTOZA PO; -VITA10002 PO; -VITA100027; -VITA100027 OR; -VITA100072 PO; -VITA1CAP40 PO; -VITA250011 PO; -VITA500019 PO; -VITA500046 PO; -VITAD1000T PO; -VITAMIN B12 SC; -XANA0.25 PO; -XARE15TA PO; -XARE20TA PO; -ZANA2CAP PO; -ZANA4CAP PO; -ZANA4TAB PO; -ZOFR20TA PO; -ZOFR4TAB3 PO; -[UNRECOGNIZED DRUG - OTHER] PO; -[UNRECOGNIZED DRUG - OTHER] PO; -coumadin PO
== END | disposition home or self-care (01) ==
LOC: M PAIN 08:45
DX: G89.29 Other chronic pain (principal); M47.816 Spondylosis without myelopathy or radiculopathy, lumbar region; M47.817 Spondylosis without myelopathy or radiculopathy, lumbosacral region; K21.9 Gastro-esophageal reflux disease without esophagitis; G43.909 Migraine, unspecified, not intractable, without status migrainosus; E78.5 Hyperlipidemia, unspecified; E66.8 Other obesity; F33.9 Major depressive disorder, recurrent, unspecified; K27.9 Peptic ulcer, site unspecified, unspecified as acute or chronic, without hemorrhage or perforation; Z86.718 Personal history of other venous thrombosis and embolism; M51.36 Other intervertebral disc degeneration, lumbar region; Z98.84 Bariatric surgery status; Z79.899 Other long term (current) drug therapy; Z79.01 Long term (current) use of anticoagulants; Z88.8 Allergy status to other drugs, medicaments and biological substances
CPT/HCPCS: Q9967

== ENCOUNTER → 2017-08-31 | Outpatient (CLI) | payer OTHER | LOC: M PAIN 10:30 | DX: M47.26 Other spondylosis with radiculopathy, lumbar region (principal); K21.9 Gastro-esophageal reflux disease without esophagitis; G43.909 Migraine, unspecified, not intractable, without status migrainosus; K76.9 Liver disease, unspecified; E78.5 Hyperlipidemia, unspecified; K42.9 Umbilical hernia without obstruction or gangrene; E53.8 Deficiency of other specified B group vitamins; D50.9 Iron deficiency anemia, unspecified; F32.9 Major depressive disorder, single episode, unspecified; G47.33 Obstructive sleep apnea (adult) (pediatric); E66.01 Morbid (severe) obesity due to excess calories; Z68.42 Body mass index [BMI] 45.0-49.9, adult; Z79.01 Long term (current) use of anticoagulants; Z79.899 Other long term (current) drug therapy; Z88.6 Allergy status to analgesic agent; Z88.8 Allergy status to other drugs, medicaments and biological substances; Z98.84 Bariatric surgery status; Z86.711 Personal history of pulmonary embolism | CPT/HCPCS: G0463 ==

== ENCOUNTER 2017-10-15 15:55 | Emergency (ER) | payer OTHER ==
[2017-10-15 18:14] LABS: KETONE, URINE AUTO RFX NEGATIVE (NEGATIVE); LEUKOCYTE ESTERASE UR AUTO RFX NEGATIVE (NEGATIVE); NITRITE, URINE AUTO RFX NEGATIVE (NEGATIVE); RBC, URINE AUTO RFX 0 /HPF (0-3); SPECIFIC GRAVITY UR AUTO RFX 1.017 (1.002-1.035); SQUAM EPITHELIAL CELL UR AURFX 2 /HPF (0-6); WBC, URINE AUTO RFX 0 /HPF (0-3)
[2017-10-15] MEDS: NS 1,000 ML IV (18:37)
[2017-10-15] MEDS: diphenhydrAMINE INJ 50MG/ML VIAL (J1200) IV (18:38)
[2017-10-15] MEDS: ONDANSETRON 4MG/2ML VIAL (J2405) IV (18:38)
[2017-10-15] MEDS: KETOROLAC 30 MG/ML VIAL (J1885) IV (18:38)
[2017-10-15 20:55] LABS: BASO # 0.1 10^3/uL (0.0-0.2); BASO % 0.7 % (0.0-1.0); EOS # 0.1 10^3/uL (0.0-0.50); EOS % 1.5 % (0.0-3.0); HEMATOCRIT 37.9 % (36.0-47.0); HEMOGLOBIN 12.6 g/dl (12.0-15.5); IMMATURE GRANULOCYTE % 0.3 % (0-3.0); LYMPH # 2.7 10^3/uL (1.5-4.5); LYMPH % 39.2 % (24.0-44.0); MEAN CORPUSCULAR HEMOGLOBIN 32.1 pg (27.0-33.0); MEAN CORPUSCULAR HGB CONC 33.2 g/dl (32.0-36.5); MEAN CORPUSCULAR VOLUME 96.4 fl (80.0-96.0); MONO # 0.3 10^3/uL (0.0-0.8); NEUTROPHILS # 3.6 10^3/uL (1.8-7.7); NEUTROPHILS % 53.3 % (36.0-66.0); PLATELET COUNT, AUTOMATED 263 10^3/uL (150-450); RED BLOOD COUNT 3.93 10^6/uL (4.00-5.40); RED CELL DISTRIBUTION WIDTH 12.9 % (11.5-14.5); WHITE BLOOD COUNT 6.8 10^3/uL (4.0-10.0)
[2017-10-15 21:23] LABS: ANION GAP 10 MEQ/L (8-16); BLOOD UREA NITROGEN 12 MG/DL (7-18); CALCIUM LEVEL 8.2 MG/DL (8.5-10.1); CARBON DIOXIDE LEVEL 19 MEQ/L (21-32); CHLORIDE LEVEL 118 MEQ/L (98-107); CREATININE FOR GFR 0.89 MG/DL (0.55-1.30); ESTIMATED AVERAGE GLUCOSE 100 MG/DL (60-110); FREE T4 0.93 NG/DL (0.76-1.46); GLOMERULAR FILTRATION RATE > 60.0 (>58); GLUCOSE, FASTING 77 MG/DL (70-100); HEMOGLOBIN A1c 5.1 %; SODIUM LEVEL 147 MEQ/L (136-145)
== END 2017-10-15 21:41 | disposition home or self-care (01) ==
LOC: M ED 21:41
DX: R53.1 Weakness (principal); R53.83 Other fatigue; K57.30 Diverticulosis of large intestine without perforation or abscess without bleeding; Z86.711 Personal history of pulmonary embolism; Z98.84 Bariatric surgery status; Z79.899 Other long term (current) drug therapy; Z79.891 Long term (current) use of opiate analgesic; Z88.6 Allergy status to analgesic agent; Z88.5 Allergy status to narcotic agent; Z88.8 Allergy status to other drugs, medicaments and biological substances
CPT/HCPCS: J1200

== ENCOUNTER 2017-10-21 07:50 | Emergency (ER) | payer OTHER ==
[2017-10-21 08:30] LABS: BASO % 0.5 % (0.0-1.0); EOS # 0.1 10^3/uL (0.0-0.50); EOS % 1.6 % (0.0-3.0); HEMATOCRIT 38.9 % (36.0-47.0); HEMOGLOBIN 13.1 g/dl (12.0-15.5); IMMATURE GRANULOCYTE % 0.4 % (0-3.0); LYMPH % 39.8 % (24.0-44.0); MEAN CORPUSCULAR HGB CONC 33.7 g/dl (32.0-36.5); MEAN CORPUSCULAR VOLUME 95.1 fl (80.0-96.0); MONO # 0.5 10^3/uL (0.0-0.8); MONO % 6.5 % (0.0-5.0); NEUTROPHILS # 3.8 10^3/uL (1.8-7.7); NEUTROPHILS % 51.2 % (36.0-66.0); PLATELET COUNT, AUTOMATED 307 10^3/uL (150-450); RED BLOOD COUNT 4.09 10^6/uL (4.00-5.40); RED CELL DISTRIBUTION WIDTH 13.2 % (11.5-14.5); WHITE BLOOD COUNT 7.5 10^3/uL (4.0-10.0)
[2017-10-21] MEDS: NITROGLYCERIN 0.4 MG SUBL TABLET SL ×3 (08:30→08:53)
[2017-10-21 08:40] LABS: INR 1.42; PROTHROMBIN TIME 17.7 SECONDS (12.4-14.5)
[2017-10-21 08:53] LABS: ALBUMIN 3.7 GM/DL (3.2-5.2); ALKALINE PHOSPHATASE 84 U/L (45-117); ALT/SGPT 19 U/L (12-78); ANION GAP 10 MEQ/L (8-16); AST/SGOT 16 U/L (7-37); BILIRUBIN,DIRECT < 0.1 MG/DL (0.0-0.2); BILIRUBIN,TOTAL 0.3 MG/DL (0.2-1.0); BLOOD UREA NITROGEN 12 MG/DL (7-18); CALCIUM LEVEL 8.2 MG/DL (8.5-10.1); CARBON DIOXIDE LEVEL 22 MEQ/L (21-32); CHLORIDE LEVEL 114 MEQ/L (98-107); CPK CREATINE PHOSPHOKINASE 143 U/L (26-192); CREATININE FOR GFR 0.96 MG/DL (0.55-1.30); GLOMERULAR FILTRATION RATE > 60.0 (>58); GLUCOSE, FASTING 77 MG/DL (70-100); LIPASE 117 U/L (73-393); POTASSIUM SERUM 3.1 MEQ/L (3.5-5.1); SODIUM LEVEL 146 MEQ/L (136-145); TOTAL PROTEIN 7.8 GM/DL (6.4-8.2); TROPONIN I < 0.02 NG/ML (< 0.10)
[2017-10-21 08:59] LABS: CK-MB VALUE MASS < 1.0 NG/ML (<3.6); MB/CK RELATIVE INDEX 0.69 (< OR =4); NT-PRO BNP 24 PG/ML (<125)
[2017-10-21] MEDS: GI COCKTAIL 50ML BTL(HYOSCYAMINE/MAALOX/LIDOCAINE VISCOUS)(1:3:1) PO (09:13)
[2017-10-21] MEDS: POTASSIUM CHLORIDE 10 MEQ SR TABLET PO (09:13)
[2017-10-21] MEDS: ACETAMINOPHEN TAB 650MG DOSE (2X325MG) PO (09:13)
[2017-10-21] MEDS ORDERED: ISOVUE-370 76% 100ML VIAL (Q9967) As Ordered ×2 (09:26→09:47)
[2017-10-21] MEDS: ONDANSETRON 4MG/2ML VIAL (J2405) IV (10:44)
[2017-10-21] MEDS: MORPHINE 4 MG/ML 1ML VIAL/SYRINGE (J2270) IV ×2 (10:48→12:27)
[2017-10-21 14:06] LABS: CK-MB VALUE MASS < 1.0 NG/ML (<3.6); CPK CREATINE PHOSPHOKINASE 120 U/L (26-192); MB/CK RELATIVE INDEX 0.83 (< OR =4); TROPONIN I < 0.02 NG/ML (< 0.10)
== END 2017-10-21 15:18 | disposition home or self-care (01) ==
LOC: M ED 07:50
DX: R07.9 Chest pain, unspecified (principal); E78.5 Hyperlipidemia, unspecified; D64.9 Anemia, unspecified; G43.909 Migraine, unspecified, not intractable, without status migrainosus; Z86.711 Personal history of pulmonary embolism; Z86.718 Personal history of other venous thrombosis and embolism; Z98.84 Bariatric surgery status; Z82.49 Family history of ischemic heart disease and other diseases of the circulatory system; Z79.899 Other long term (current) drug therapy; Z88.6 Allergy status to analgesic agent; Z88.5 Allergy status to narcotic agent; Z88.8 Allergy status to other drugs, medicaments and biological substances
CPT/HCPCS: J2270

== ENCOUNTER 2017-10-27 01:16 | Emergency (ER) | payer OTHER ==
[2017-10-27] MEDS: predniSONE 20 MG TAB PO (02:13)
[2017-10-27] MEDS: NORCO, ANEXSIA 5/325MG TABLET (HYDROcodone/ACETAMINOPHEN) PO (02:13)
== END 2017-10-27 02:16 | disposition home or self-care (01) ==
LOC: M ED 01:16
DX: G62.9 Polyneuropathy, unspecified (principal); G89.29 Other chronic pain; G43.909 Migraine, unspecified, not intractable, without status migrainosus; I25.84 Coronary atherosclerosis due to calcified coronary lesion; Z86.718 Personal history of other venous thrombosis and embolism; Z86.711 Personal history of pulmonary embolism; J45.909 Unspecified asthma, uncomplicated; K21.9 Gastro-esophageal reflux disease without esophagitis; K57.92 Diverticulitis of intestine, part unspecified, without perforation or abscess without bleeding; K42.9 Umbilical hernia without obstruction or gangrene; M51.26 Other intervertebral disc displacement, lumbar region; F41.9 Anxiety disorder, unspecified; F32.9 Major depressive disorder, single episode, unspecified; Z79.899 Other long term (current) drug therapy; Z88.6 Allergy status to analgesic agent; Z88.5 Allergy status to narcotic agent; Z88.8 Allergy status to other drugs, medicaments and biological substances
CPT/HCPCS: 99283

== ENCOUNTER → 2017-11-04 | Outpatient (CLI) | payer OTHER | LOC: M RAD 06:15 | DX: R20.2 Paresthesia of skin (principal) | CPT/HCPCS: 72141 ==

== ENCOUNTER 2017-12-22 20:45 | Emergency (ER) | payer OTHER ==
[2017-12-22] MEDS: NS 1,000 ML IV (22:52)
[2017-12-22 22:53] LABS: BASO # 0.1 10^3/uL (0.0-0.2); BASO % 0.5 % (0.0-1.0); EOS # 0.1 10^3/uL (0.0-0.50); EOS % 0.5 % (0.0-3.0); HEMATOCRIT 41.8 % (36.0-47.0); HEMOGLOBIN 13.7 g/dl (12.0-15.5); IMMATURE GRANULOCYTE % 0.3 % (0-3.0); LYMPH # 2.9 10^3/uL (1.5-4.5); LYMPH % 26.9 % (24.0-44.0); MEAN CORPUSCULAR HEMOGLOBIN 31.4 pg (27.0-33.0); MEAN CORPUSCULAR HGB CONC 32.8 g/dl (32.0-36.5); MEAN CORPUSCULAR VOLUME 95.7 fl (80.0-96.0); MONO # 0.7 10^3/uL (0.0-0.8); MONO % 6.1 % (0.0-5.0); NEUTROPHILS # 7.2 10^3/uL (1.8-7.7); NEUTROPHILS % 65.7 % (36.0-66.0); PLATELET COUNT, AUTOMATED 294 10^3/uL (150-450); RED BLOOD COUNT 4.37 10^6/uL (4.00-5.40); RED CELL DISTRIBUTION WIDTH 13.5 % (11.5-14.5); WHITE BLOOD COUNT 10.9 10^3/uL (4.0-10.0)
[2017-12-22] MEDS: MORPHINE 4 MG/ML 1ML VIAL/SYRINGE (J2270) IV (22:53)
[2017-12-22] MEDS: ONDANSETRON 4MG/2ML VIAL (J2405) IV (22:53)
[2017-12-22 23:03] LABS: INR 1.42; PROTHROMBIN TIME 17.6 SECONDS (12.1-14.4)
[2017-12-22] MEDS ORDERED: ISOVUE-370 76% 100ML VIAL (Q9967) As Ordered (23:13)
[2017-12-22 23:17] LABS: ALBUMIN 3.7 GM/DL (3.2-5.2); ALKALINE PHOSPHATASE 83 U/L (45-117); ALT/SGPT 17 U/L (12-78); AMYLASE 27 U/L (25-115); ANION GAP 7 MEQ/L (8-16); AST/SGOT 15 U/L (7-37); BILIRUBIN,DIRECT < 0.1 MG/DL (0.0-0.2); BILIRUBIN,TOTAL 0.4 MG/DL (0.2-1.0); BLOOD UREA NITROGEN 13 MG/DL (7-18); CALCIUM LEVEL 8.6 MG/DL (8.5-10.1); CARBON DIOXIDE LEVEL 25 MEQ/L (21-32); CHLORIDE LEVEL 112 MEQ/L (98-107); CREATININE FOR GFR 0.93 MG/DL (0.55-1.30); GLOMERULAR FILTRATION RATE > 60.0 (>58); GLUCOSE, FASTING 85 MG/DL (70-100); LIPASE 94 U/L (73-393); POTASSIUM SERUM 3.3 MEQ/L (3.5-5.1); SODIUM LEVEL 144 MEQ/L (136-145); TOTAL PROTEIN 7.8 GM/DL (6.4-8.2)
[2017-12-23] MEDS: ONDANSETRON 4MG/2ML VIAL (J2405) IV (00:14)
[2017-12-23] MEDS: MORPHINE 4 MG/ML 1ML VIAL/SYRINGE (J2270) IV (00:15)
[2017-12-23] MEDS: KETOROLAC 30 MG/ML VIAL (J1885) IV (00:52)
[2017-12-23] MEDS: metroNIDAZOLE (FLAGYL) 500 MG TAB PO (01:32)
[2017-12-23] MEDS: NORCO 5/325MG TABLET (BULK FOR ED) PO (01:32)
[2017-12-23] MEDS: CIPROFLOXACIN 500 MG TAB PO (01:32)
== END 2017-12-23 01:40 | disposition home or self-care (01) ==
LOC: M ED 12-23 01:40
DX: K57.90 Diverticulosis of intestine, part unspecified, without perforation or abscess without bleeding (principal); R10.32 Left lower quadrant pain; R11.0 Nausea; K21.9 Gastro-esophageal reflux disease without esophagitis
CPT/HCPCS: J2270

== ENCOUNTER 2017-12-27 05:59 | Inpatient (IN) | payer OTHER ==
[2017-12-27 06:35] LABS: BASO % 0.3 % (0.0-1.0); EOS # 0.1 10^3/uL (0.0-0.50); EOS % 0.5 % (0.0-3.0); HEMATOCRIT 38.2 % (36.0-47.0); HEMOGLOBIN 12.7 g/dl (12.0-15.5); IMMATURE GRANULOCYTE % 0.3 % (0-3.0); LYMPH # 2.1 10^3/uL (1.5-4.5); LYMPH % 22.1 % (24.0-44.0); MEAN CORPUSCULAR HEMOGLOBIN 31.3 pg (27.0-33.0); MEAN CORPUSCULAR HGB CONC 33.2 g/dl (32.0-36.5); MEAN CORPUSCULAR VOLUME 94.1 fl (80.0-96.0); MONO # 0.5 10^3/uL (0.0-0.8); MONO % 5.3 % (0.0-5.0); NEUTROPHILS # 6.7 10^3/uL (1.8-7.7); NEUTROPHILS % 71.5 % (36.0-66.0); PLATELET COUNT, AUTOMATED 328 10^3/uL (150-450); RED BLOOD COUNT 4.06 10^6/uL (4.00-5.40); RED CELL DISTRIBUTION WIDTH 13.3 % (11.5-14.5); WHITE BLOOD COUNT 9.3 10^3/uL (4.0-10.0)
[2017-12-27] MEDS: ONDANSETRON 4MG/2ML VIAL (J2405) IV ×2 (06:39→13:21)
[2017-12-27] MEDS: NS 1,000 ML IV ×2 (06:39→09:28)
[2017-12-27] MEDS: MORPHINE 4 MG/ML 1ML VIAL/SYRINGE (J2270) IV ×5 (06:40→22:07)
[2017-12-27 06:47] LABS: INR 1.52; PROTHROMBIN TIME 18.6 SECONDS (12.1-14.4)
[2017-12-27 06:48] LABS: PARTIAL THROMBOPLASTIN TIME 39.1 SECONDS (25.4-37.6)
[2017-12-27] MEDS ORDERED: GASTROGRAFIN SOLUTION 30ML (Q9963) As Ordered (06:48)
[2017-12-27] MEDS: GASTROGRAFIN SOLUTION 30ML (Q9963) PO ×2 (06:52→07:22)
[2017-12-27 06:59] LABS: ALBUMIN 3.2 GM/DL (3.2-5.2); ALBUMIN/GLOBULIN RATIO 0.78 (1.00-1.93); ALKALINE PHOSPHATASE 68 U/L (45-117); ALT/SGPT 14 U/L (12-78); ANION GAP 12 MEQ/L (8-16); AST/SGOT 13 U/L (7-37); BILIRUBIN,TOTAL 0.2 MG/DL (0.2-1.0); BLOOD UREA NITROGEN 12 MG/DL (7-18); CALCIUM LEVEL 8.6 MG/DL (8.5-10.1); CARBON DIOXIDE LEVEL 16 MEQ/L (21-32); CHLORIDE LEVEL 117 MEQ/L (98-107); CREATININE FOR GFR 1.05 MG/DL (0.55-1.30); GLOMERULAR FILTRATION RATE > 60.0 (>58); GLUCOSE, FASTING 135 MG/DL (70-100); LIPASE 151 U/L (73-393); POTASSIUM SERUM 3.2 MEQ/L (3.5-5.1); SODIUM LEVEL 145 MEQ/L (136-145); TOTAL PROTEIN 7.3 GM/DL (6.4-8.2)
[2017-12-27 07:07] LABS: LACTIC ACID SEPSIS PROTOCOL 2.7 MMOL/L (0.4-2.0)
[2017-12-27] MEDS ORDERED: ISOVUE-370 76% 100ML VIAL (Q9967) As Ordered (08:34)
[2017-12-27] MEDS: POTASSIUM CHLORIDE 10 MEQ SR TABLET PO (08:43)
[2017-12-27 08:47] LABS: KETONE, URINE AUTO RFX NEGATIVE (NEGATIVE); LEUKOCYTE ESTERASE UR AUTO RFX NEGATIVE (NEGATIVE); MUCUS, URINE RFX SMALL (NEGATIVE); NITRITE, URINE AUTO RFX NEGATIVE (NEGATIVE); RBC, URINE AUTO RFX 3 /HPF (0-3); SQUAM EPITHELIAL CELL UR AURFX 1 /HPF (0-6); WBC, URINE AUTO RFX 1 /HPF (0-3)
[2017-12-27] MEDS: PREGABALIN 75 MG CAP(LYRICA) PO ×2 (09:00→20:43)
[2017-12-27] MEDS: fentaNYL 100 MCG/2 ML INJECTION (J3010) IV (10:06)
[2017-12-27] MEDS: KCL 40MEQ in NS 1000ML 1,000 ML IV ×2 (13:24→20:43)
[2017-12-27] MEDS: VITAMIN D 1,000 INTERNATIONAL UNITS TABLET PO ×2 (14:52→20:42)
[2017-12-27] MEDS: CYANOCOBALAMIN 500 MCG TAB PO (14:52)
[2017-12-27] MEDS: VENLAFAXINE 25 MG TAB PO ×2 (14:53→20:42)
[2017-12-27] MEDS: MULTIVITAMINS/MINERALS THERAP 1 TAB PO (15:00)
[2017-12-27] MEDS: OMEPRAZOLE 20 MG CAP PO ×2 (15:00→20:43)
[2017-12-27] MEDS: PIPERACILLIN/TAZOBACTAM SOD 3.375 GM in D5W MINI-BAG PLUS 50 ML IV ×2 (15:01→20:43)
[2017-12-27] MEDS: metroNIDAZOLE 500 MG in APPROPRIATE DILUENT 1 EA IV ×2 (16:38→22:04)
[2017-12-27] MEDS: hydrOXYzine 25 MG TAB PO (16:45)
[2017-12-27] MEDS: TOPIRAMATE (TopAMAX) 100 MG TAB PO (20:42)
[2017-12-27] MEDS: RIVAROXABAN 20 MG TAB (XARELTO) PO (20:43)
[2017-12-27] MEDS: traZODone 50 MG TAB PO (20:43)
[2017-12-28] MEDS: KCL 40MEQ in NS 1000ML 1,000 ML IV ×3 (04:15→22:24)
[2017-12-28] MEDS: PIPERACILLIN/TAZOBACTAM SOD 3.375 GM in D5W MINI-BAG PLUS 50 ML IV ×3 (04:55→22:47)
[2017-12-28] MEDS: MORPHINE 4 MG/ML 1ML VIAL/SYRINGE (J2270) IV ×4 (04:56→20:29)
[2017-12-28] MEDS: metroNIDAZOLE 500 MG in APPROPRIATE DILUENT 1 EA IV ×3 (06:09→22:24)
[2017-12-28 06:33] LABS: BASO % 0.4 % (0.0-1.0); EOS # 0.1 10^3/uL (0.0-0.50); EOS % 0.8 % (0.0-3.0); HEMATOCRIT 35.3 % (36.0-47.0); HEMOGLOBIN 11.6 g/dl (12.0-15.5); IMMATURE GRANULOCYTE % 0.5 % (0-3.0); LYMPH # 1.9 10^3/uL (1.5-4.5); LYMPH % 26.2 % (24.0-44.0); MEAN CORPUSCULAR HEMOGLOBIN 31.6 pg (27.0-33.0); MEAN CORPUSCULAR HGB CONC 32.9 g/dl (32.0-36.5); MEAN CORPUSCULAR VOLUME 96.2 fl (80.0-96.0); MONO # 0.5 10^3/uL (0.0-0.8); MONO % 7.3 % (0.0-5.0); NEUTROPHILS # 4.8 10^3/uL (1.8-7.7); NEUTROPHILS % 64.8 % (36.0-66.0); PLATELET COUNT, AUTOMATED 285 10^3/uL (150-450); RED BLOOD COUNT 3.67 10^6/uL (4.00-5.40); RED CELL DISTRIBUTION WIDTH 13.6 % (11.5-14.5); WHITE BLOOD COUNT 7.4 10^3/uL (4.0-10.0)
[2017-12-28 06:43] LABS: ANION GAP 10 MEQ/L (8-16); BLOOD UREA NITROGEN 6 MG/DL (7-18); CALCIUM LEVEL 8.2 MG/DL (8.5-10.1); CARBON DIOXIDE LEVEL 18 MEQ/L (21-32); CHLORIDE LEVEL 117 MEQ/L (98-107); CREATININE FOR GFR 1.03 MG/DL (0.55-1.30); GLOMERULAR FILTRATION RATE > 60.0 (>58); GLUCOSE, FASTING 92 MG/DL (70-100); MAGNESIUM LEVEL 2.1 MG/DL (1.8-2.4); POTASSIUM SERUM 3.9 MEQ/L (3.5-5.1); SODIUM LEVEL 145 MEQ/L (136-145)
[2017-12-28] MEDS: MIRALAX *UNIT DOSE* 17GM PACKET PO (09:15)
[2017-12-28] MEDS: PREGABALIN 75 MG CAP(LYRICA) PO ×2 (09:15→20:26)
[2017-12-28] MEDS: VITAMIN D 1,000 INTERNATIONAL UNITS TABLET PO ×2 (09:16→20:27)
[2017-12-28] MEDS: VENLAFAXINE 25 MG TAB PO ×3 (09:16→20:26)
[2017-12-28] MEDS: CYANOCOBALAMIN 500 MCG TAB PO (09:16)
[2017-12-28] MEDS: MULTIVITAMINS/MINERALS THERAP 1 TAB PO (09:16)
[2017-12-28] MEDS: OMEPRAZOLE 20 MG CAP PO ×2 (09:17→20:26)
[2017-12-28] MEDS: ONDANSETRON 4MG/2ML VIAL (J2405) IV ×3 (10:26→20:29)
[2017-12-28] MEDS: TOPIRAMATE (TopAMAX) 100 MG TAB PO (20:27)
[2017-12-28] MEDS: RIVAROXABAN 20 MG TAB (XARELTO) PO (20:27)
[2017-12-28] MEDS: hydrOXYzine 25 MG TAB PO (22:23)
[2017-12-28] MEDS: traZODone 50 MG TAB PO (22:23)
[2017-12-29] MEDS: PIPERACILLIN/TAZOBACTAM SOD 3.375 GM in D5W MINI-BAG PLUS 50 ML IV ×2 (05:16→13:55)
[2017-12-29] MEDS: metroNIDAZOLE 500 MG in APPROPRIATE DILUENT 1 EA IV ×2 (06:31→15:08)
[2017-12-29] MEDS: KCL 40MEQ in NS 1000ML 1,000 ML IV (06:32)
[2017-12-29 07:11] LABS: BASO % 0.4 % (0.0-1.0); EOS # 0.1 10^3/uL (0.0-0.50); EOS % 1.2 % (0.0-3.0); HEMOGLOBIN 10.4 g/dl (12.0-15.5); IMMATURE GRANULOCYTE % 0.4 % (0-3.0); LYMPH % 29.1 % (24.0-44.0); MEAN CORPUSCULAR HEMOGLOBIN 31.5 pg (27.0-33.0); MEAN CORPUSCULAR HGB CONC 32.5 g/dl (32.0-36.5); MONO # 0.5 10^3/uL (0.0-0.8); MONO % 6.6 % (0.0-5.0); NEUTROPHILS # 4.2 10^3/uL (1.8-7.7); NEUTROPHILS % 62.3 % (36.0-66.0); PLATELET COUNT, AUTOMATED 255 10^3/uL (150-450); RED CELL DISTRIBUTION WIDTH 13.4 % (11.5-14.5); WHITE BLOOD COUNT 6.8 10^3/uL (4.0-10.0)
[2017-12-29 07:12] LABS: ANION GAP 12 MEQ/L (8-16); BLOOD UREA NITROGEN 3 MG/DL (7-18); CARBON DIOXIDE LEVEL 18 MEQ/L (21-32); CHLORIDE LEVEL 118 MEQ/L (98-107); GLOMERULAR FILTRATION RATE > 60.0 (>58); GLUCOSE, FASTING 94 MG/DL (70-100); POTASSIUM SERUM 3.9 MEQ/L (3.5-5.1); SODIUM LEVEL 148 MEQ/L (136-145)
[2017-12-29] MEDS: MIRALAX *UNIT DOSE* 17GM PACKET PO (09:00)
[2017-12-29] MEDS: MULTIVITAMINS/MINERALS THERAP 1 TAB PO (09:58)
[2017-12-29] MEDS: OMEPRAZOLE 20 MG CAP PO (09:58)
[2017-12-29] MEDS: VENLAFAXINE 25 MG TAB PO ×2 (09:59→15:08)
[2017-12-29] MEDS: VITAMIN D 1,000 INTERNATIONAL UNITS TABLET PO (09:59)
[2017-12-29] MEDS: CYANOCOBALAMIN 500 MCG TAB PO (10:00)
[2017-12-29] MEDS: PREGABALIN 75 MG CAP(LYRICA) PO (10:00)
== END 2017-12-29 17:25 | disposition home or self-care (01) | DRG 244 ==
LOC: M ED 05:59 → M ED INP 12:06 → M MS5PR 13:35
DX: K57.32 Diverticulitis of large intestine without perforation or abscess without bleeding (principal); K76.0 Fatty (change of) liver, not elsewhere classified; G43.911 Migraine, unspecified, intractable, with status migrainosus; E78.5 Hyperlipidemia, unspecified; I87.2 Venous insufficiency (chronic) (peripheral); Z98.84 Bariatric surgery status; K21.9 Gastro-esophageal reflux disease without esophagitis; D50.9 Iron deficiency anemia, unspecified; D53.9 Nutritional anemia, unspecified; R20.2 Paresthesia of skin; M47.816 Spondylosis without myelopathy or radiculopathy, lumbar region; G89.4 Chronic pain syndrome; G47.33 Obstructive sleep apnea (adult) (pediatric); K27.9 Peptic ulcer, site unspecified, unspecified as acute or chronic, without hemorrhage or perforation; F32.9 Major depressive disorder, single episode, unspecified; K52.9 Noninfective gastroenteritis and colitis, unspecified; Z86.711 Personal history of pulmonary embolism; Z91.5 Personal history of self-harm; Z79.01 Long term (current) use of anticoagulants; Z79.899 Other long term (current) drug therapy; Z79.891 Long term (current) use of opiate analgesic; Z88.6 Allergy status to analgesic agent; Z88.8 Allergy status to other drugs, medicaments and biological substances

== ENCOUNTER → 2018-03-20 | Outpatient (REF) | payer OTHER ==
[2018-03-20 13:42] LABS: BASO # 0.1 10^3/uL (0.0-0.2); BASO % 0.8 % (0.0-1.0); EOS # 0.1 10^3/uL (0.0-0.50); EOS % 1.7 % (0.0-3.0); HEMATOCRIT 40.5 % (36.0-47.0); HEMOGLOBIN 13.3 g/dl (12.0-15.5); IMMATURE GRANULOCYTE % 0.2 % (0-3.0); LYMPH # 2.7 10^3/uL (1.5-4.5); LYMPH % 43.9 % (24.0-44.0); MEAN CORPUSCULAR HEMOGLOBIN 31.9 pg (27.0-33.0); MEAN CORPUSCULAR HGB CONC 32.8 g/dl (32.0-36.5); MEAN CORPUSCULAR VOLUME 97.1 fl (80.0-96.0); MONO # 0.4 10^3/uL (0.0-0.8); MONO % 6.3 % (0.0-5.0); NEUTROPHILS # 2.9 10^3/uL (1.8-7.7); NEUTROPHILS % 47.1 % (36.0-66.0); PLATELET COUNT, AUTOMATED 301 10^3/uL (150-450); RED BLOOD COUNT 4.17 10^6/uL (4.00-5.40); RED CELL DISTRIBUTION WIDTH 14.2 % (11.5-14.5)
[2018-03-20 13:48] LABS: HEMATOCRIT 40.5 % (36.0-47.0)
[2018-03-20 14:08] LABS: ALBUMIN 3.7 GM/DL (3.2-5.2); ALBUMIN/GLOBULIN RATIO 1.12 (1.00-1.93); ALKALINE PHOSPHATASE 69 U/L (45-117); ALT/SGPT 16 U/L (12-78); ANION GAP 10 MEQ/L (8-16); AST/SGOT 18 U/L (7-37); BILIRUBIN,TOTAL 0.3 MG/DL (0.2-1.0); BLOOD UREA NITROGEN 11 MG/DL (7-18); CALCIUM LEVEL 8.9 MG/DL (8.5-10.1); CARBON DIOXIDE LEVEL 20 MEQ/L (21-32); CHLORIDE LEVEL 114 MEQ/L (98-107); FERRITIN 11 NG/ML (8-252); GLOMERULAR FILTRATION RATE > 60.0 (>58); GLUCOSE, FASTING 78 MG/DL (70-100); IRON (FE) 86 UG/DL (50-170); PERCENT SATURATION 21.3 % (13.2-45.0); POTASSIUM SERUM 3.8 MEQ/L (3.5-5.1); SODIUM LEVEL 144 MEQ/L (136-145); TOTAL IRON BINDING CAPACITY 404 UG/DL (250-450)
[2018-03-20 14:26] LABS: VITAMIN B12 LEVEL 394 PG/ML (247-911)
[2018-03-21 13:19] LABS: PRETREATED FOLATE FOR RBCFOL 5.8 NG/ML; RBC FOLATE 300 NG/ML (280-791)
[2018-03-24 00:06] LABS: QuantiFERON-TB Gold Plus Negative (Negative)
== END ==
LOC: M SFHCPLAZ 11:02
DX: E53.8 Deficiency of other specified B group vitamins (principal); R60.9 Edema, unspecified; D50.9 Iron deficiency anemia, unspecified; R19.7 Diarrhea, unspecified

== ENCOUNTER 2018-05-15 15:14 | Emergency (ER) | payer OTHER ==
[~2018-05-15] VITALS: Ht 157.5 cm; Wt 110.5 kg
[~2018-05-15 15:14] MED LIST changes: +/ESOM40CA; +/ESOM40CA OR; +/PANT40TA PO; +/WARF5TA PO; +ABIL10TA9 PO; +ABIL1TAB11 PO; +ABIL5TAB OR; +ABIL5TAB PO; +ACET500C; +ACET500C OR; +AMBI10TA PO; +AMBI5TAB PO; +ARIP1TAB2 PO; +ARIP5TA PO; +AUGM875T28 PO; +B-1210009 PO; +BACL1TAB9 PO; +BODY PO; -BUPIVACAINE HCL 0.25% 30 ML VIAL As Ordered; +BUTRAN TD; +CALC500T49 PO; +CALC600T31 PO; +CALC600T60 PO; +CARA1TAB2 PO; +CENTTAB47 PO; +CHILCHW18 PO; +CIPR-249 PO; +COLA100C5 PO; +COUM10TA PO; +COUM1TAB17 PO; +CYTO100T PO; +EFFE150C2 PO; +EFFE75CA75 OR; +FERR325T OR; +FERR325T3 PO; +FERR32TA PO; +FISH500C PO; +FLAG500T PO; +FLEXERIL PO; +HYDR-3363 PO; +HYDR-3719 PO; +HYDRCRY PO; +IRON18TA PO; +IRON28TA; +IRONCAP2 PO; +IRONTAB3 PO; -ISOVUE-M 300 61% 15ML VIAL (Q9967) As Ordered; +LASI20TA3 PO; +LASI40TA; +LASI40TA OR; +LEVA1TAB2 PO; +LIDO5DIS41 TD; -LIDOCAINE 1% SDV INJ 30 ML VIAL As Ordered; +LIPI10TA OR; +LUPR11.22 IM; +LYRI150C PO; +LYRI75CA PO; +MAGN1TAB25 PO; +MAXA10TA14 PO; +MAXA10TA17; +MAXA10TA17 OR; +MEDR10TA PO; +MELA1CAP2 PO; +MIRA3350 PO; +MISO200T56 PO; +MOTR200T4 PO; +MULTLIQ7 PO; +NEXI40CA PO; +NORCOTAB PO; +NORE5TAB PO; +OMEP40CA2 PO; +ONDA4TAB5 PO; +PANT40TA3 PO; +PRED20TA PO; +PREG50CA PO; +PREN1CHW PO; +PRENTAB31 PO; +PRENTAB44 PO; +PROZ10CA7 PO; +PROZ40CA PO; +RIZA10TA4 PO; +ROBA750T4 PO; +SUCR1SUS PO; +SUCR1TA PO; +TIZA4CAP PO; +TOPA100T12 PO; +TOPA1TAB PO; +TOPA50TA8 PO; +TOPI100T9 PO; +TOPI200T7 PO; +TOPI25TA2; +TOPI50TA OR; +TOPI50TA9 PO; +TRAM50TA2 PO; +TRAZO50TA PO; +TYLE325T5 PO; +VENL100T PO; +VENL37TA PO; +VENL50TA2 PO; +VENL75TA2 PO; +VICO5TAB OR; +VICO5TAB PO; +VICTOZA PO; +VITA10002 PO; +VITA100027; +VITA100027 OR; +VITA100072 PO; +VITA250011 PO; +VITA500019 PO; +VITA500046 PO; +VITA50005 PO; +VITAD1000T PO; +VITAMIN B12 SC; +VITMTA PO; +XANA0.25 PO; +XARE15TA PO; +XARE20TA PO; +ZANA2CAP PO; +ZANA4CAP PO; +ZANA4TAB PO; +ZOFR4TAB14 PO; +ZOFR4TAB16 PO; +ZOLP10TA2 PO; +[UNRECOGNIZED DRUG - OTHER] PO; +[UNRECOGNIZED DRUG - OTHER] PO; +coumadin PO
[2018-05-15 16:16] LABS: BASO % 0.6 % (0.0-1.0); EOS # 0.2 10^3/uL (0.0-0.50); EOS % 3.4 % (0.0-3.0); HEMATOCRIT 40.2 % (36.0-47.0); HEMOGLOBIN 13.2 g/dl (12.0-15.5); LYMPH # 2.6 10^3/uL (1.5-4.5); LYMPH % 41.1 % (24.0-44.0); MEAN CORPUSCULAR HGB CONC 32.8 g/dl (32.0-36.5); MEAN CORPUSCULAR VOLUME 97.6 fl (80.0-96.0); MONO # 0.4 10^3/uL (0.0-0.8); MONO % 5.9 % (0.0-5.0); NEUTROPHILS # 3.1 10^3/uL (1.8-7.7); NEUTROPHILS % 48.8 % (36.0-66.0); PLATELET COUNT, AUTOMATED 320 10^3/uL (150-450); RED BLOOD COUNT 4.12 10^6/uL (4.00-5.40); WHITE BLOOD COUNT 6.4 10^3/uL (4.0-10.0)
[2018-05-15 16:23] LABS: INR 1.15; PROTHROMBIN TIME 14.9 SECONDS (12.1-14.4)
[2018-05-15 16:50] LABS: BLOOD UREA NITROGEN 14 MG/DL (7-18); CALCIUM LEVEL 8.5 MG/DL (8.5-10.1); CARBON DIOXIDE LEVEL 22 MEQ/L (21-32); CHLORIDE LEVEL 109 MEQ/L (98-107); CK-MB VALUE MASS < 1.0 NG/ML (<3.6); CPK CREATINE PHOSPHOKINASE 90 U/L (26-192); GLOMERULAR FILTRATION RATE > 60.0 (>58); GLUCOSE, FASTING 103 MG/DL (70-100); MB/CK RELATIVE INDEX 1.11 (< OR =4); POTASSIUM SERUM 3.9 MEQ/L (3.5-5.1); SODIUM LEVEL 142 MEQ/L (136-145); TROPONIN I < 0.02 NG/ML (< 0.10)
[2018-05-15 17:39] VITALS: BP 117/57
[2018-05-15 18:02] LABS: D-DIMER QUANT < 270 ng/ml (<500)
--- NOTE | 2018-05-16 19:41 | ECGEPIP ---
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
== END 2018-05-15 18:25 | disposition home or self-care (01) ==
LOC: M ED 15:14
DX: M54.9 Dorsalgia, unspecified (principal); G43.909 Migraine, unspecified, not intractable, without status migrainosus; K21.9 Gastro-esophageal reflux disease without esophagitis; F32.9 Major depressive disorder, single episode, unspecified

== ENCOUNTER 2018-06-11 11:17 | Emergency (ER) | payer OTHER ==
[~2018-06-11] VITALS: Ht 157.5 cm; Wt 112.3 kg
[2018-06-11] MEDS ORDERED: METOCLOPRAMIDE INJ 10MG/2ML VIAL (J2765) IV ONE (13:00)
[2018-06-11] MEDS ORDERED: NS 1,000 ML IV ONE (13:00)
[2018-06-11 13:11] LABS: BASO % 0.5 % (0.0-1.0); EOS # 0.2 10^3/uL (0.0-0.50); EOS % 2.1 % (0.0-3.0); HEMATOCRIT 39.8 % (36.0-47.0); LYMPH # 2.3 10^3/uL (1.5-4.5); LYMPH % 29.2 % (24.0-44.0); MEAN CORPUSCULAR HEMOGLOBIN 31.7 pg (27.0-33.0); MEAN CORPUSCULAR HGB CONC 32.7 g/dl (32.0-36.5); MEAN CORPUSCULAR VOLUME 97.1 fl (80.0-96.0); MONO # 0.5 10^3/uL (0.0-0.8); MONO % 6.2 % (0.0-5.0); NEUTROPHILS # 4.9 10^3/uL (1.8-7.7); NEUTROPHILS % 61.6 % (36.0-66.0); PLATELET COUNT, AUTOMATED 260 10^3/uL (150-450); WHITE BLOOD COUNT 7.9 10^3/uL (4.0-10.0)
[2018-06-11 13:31] LABS: BLOOD UREA NITROGEN 9 MG/DL (7-18); CALCIUM LEVEL 8.4 MG/DL (8.5-10.1); CARBON DIOXIDE LEVEL 28 MEQ/L (21-32); CHLORIDE LEVEL 111 MEQ/L (98-107); CREATININE FOR GFR 0.79 MG/DL (0.55-1.30); GLOMERULAR FILTRATION RATE > 60.0 (>58); GLUCOSE, FASTING 87 MG/DL (70-100); POTASSIUM SERUM 4.4 MEQ/L (3.5-5.1); SODIUM LEVEL 142 MEQ/L (136-145)
[2018-06-11 13:32] LABS: HCG, SERUM QUALITATIVE NEGATIVE (NEGATIVE)
[2018-06-11] MEDS ORDERED: ISOVUE-370 76% 100ML VIAL (Q9967) As Ordered ONE (13:45)
--- NOTE | 2018-06-11 14:46 | REP ---
CT BRAIN WITHOUT IV CONTRAST: CT brain performed without IV contrast. Ventricles are normal in size and position with no midline shift or mass effect. Diaz-white differentiation is well maintained. There is no acute hemorrhage or extra-axial fluid collection. Bone window examination is unremarkable. IMPRESSION: Negative noncontrast CT brain. Electronically Signed by Adrian Diaz MD 06/11/2018 07:08 P
[2018-06-11] MEDS ORDERED: cefTRIAXone SOD 1 GM in D5W MINI-BAG PLUS 50 ML IV ONE (15:30)
[2018-06-11] MEDS ORDERED: AUGM875T28 PO (15:33)
[2018-06-11] MEDS ORDERED: REGL5TAB2 PO (15:33)
[2018-06-11 15:50] VITALS: BP 109/59
[2018-06-11 16:02] LABS: MONO SCRN NEGATIVE (NEGATIVE)
--- NOTE | 2018-06-12 08:06 | REP ---
CT NECK WITH IV CONTRAST: CT neck performed with the intravenous administration of 100 mL of Isovue 370. Sagittal and coronal reconstruction images are performed. There is a mildly enlarged cervical lymph node on the left near the angle of the mandible, measuring 1.4 cm in short-axis dimension. There are a few other scattered smaller lymph nodes in the cervical region bilaterally. Left palatine tonsil appears slightly enlarged. No parapharyngeal abscess is seen. There is mild mucosal thickening in the left maxillary sinus. Other paranasal sinuses appear clear. Epiglottis is normal. Globes are intact. I see no other significant finding. There are mild degenerative changes of the cervical spine. IMPRESSION: Mildly enlarged left cervical lymph node, 1.4 cm in short axis. There appears to be mild enlargement of the left palatine tonsil. No parapharyngeal abscess. Mild mucosal thickening left maxillary sinus. Electronically Signed by Adrian Diaz MD 06/12/2018 10:34 P
== END 2018-06-11 16:23 | disposition home or self-care (01) ==
LOC: M ED 11:17
DX: J03.90 Acute tonsillitis, unspecified (principal); I50.9 Heart failure, unspecified; E66.01 Morbid (severe) obesity due to excess calories; E78.5 Hyperlipidemia, unspecified; K21.9 Gastro-esophageal reflux disease without esophagitis; K76.0 Fatty (change of) liver, not elsewhere classified; G47.33 Obstructive sleep apnea (adult) (pediatric); Z98.0 Intestinal bypass and anastomosis status; Z86.711 Personal history of pulmonary embolism; Z86.718 Personal history of other venous thrombosis and embolism; Z88.8 Allergy status to other drugs, medicaments and biological substances; Z88.5 Allergy status to narcotic agent; Z79.899 Other long term (current) drug therapy
CPT/HCPCS: 70450; 70491; 80048; 84703; 85025; 86308; 87486; 87581; 87633; 87798; 87880; 96365; 96375; 99284; J0696; J2765; Q9967

== ENCOUNTER 2018-07-27 03:03 | Emergency (ER) | payer OTHER ==
[~2018-07-27] VITALS: Ht 157.5 cm; Wt 113.2 kg
[~2018-07-27 03:03] MED LIST changes: -/ESOM40CA; -/ESOM40CA OR; -/PANT40TA PO; -/WARF5TA PO; +ARIP1TAB6 PO; -ARIP5TA PO; +HYDR-3715 PO; -MAGN1TAB25 PO; +MAGN1TAB26 PO; +NEXI1CAP3; +NEXI1CAP3 OR; -NORCOTAB PO; +PROT1TAB2 PO; +REGL5TAB2 PO
[2018-07-27] MEDS: NS 500 ML IV ONE (03:55)
[2018-07-27 04:05] LABS: BASO # 0.1 10^3/uL (0.0-0.2); BASO % 0.6 % (0.0-1.0); EOS # 0.2 10^3/uL (0.0-0.50); EOS % 2.3 % (0.0-3.0); HEMOGLOBIN 12.4 g/dl (12.0-15.5); LYMPH # 3.2 10^3/uL (1.5-4.5); LYMPH % 40.4 % (24.0-44.0); MEAN CORPUSCULAR HEMOGLOBIN 31.5 pg (27.0-33.0); MEAN CORPUSCULAR HGB CONC 32.6 g/dl (32.0-36.5); MEAN CORPUSCULAR VOLUME 96.4 fl (80.0-96.0); MONO # 0.4 10^3/uL (0.0-0.8); MONO % 5.6 % (0.0-5.0); NEUTROPHILS % 50.7 % (36.0-66.0); PLATELET COUNT, AUTOMATED 301 10^3/uL (150-450); RED BLOOD COUNT 3.94 10^6/uL (4.00-5.40); WHITE BLOOD COUNT 7.8 10^3/uL (4.0-10.0)
[2018-07-27 04:15] LABS: INR 1.53; PROTHROMBIN TIME 18.6 SECONDS (12.1-14.4)
[2018-07-27 04:22] LABS: HCG, SERUM QUALITATIVE NEGATIVE (NEGATIVE)
[2018-07-27 04:32] LABS: ALBUMIN 3.4 GM/DL (3.2-5.2); ALT/SGPT 13 U/L (12-78); BILIRUBIN,DIRECT < 0.1 MG/DL (0.0-0.2); BILIRUBIN,TOTAL 0.1 MG/DL (0.2-1.0); BLOOD UREA NITROGEN 14 MG/DL (7-18); CALCIUM LEVEL 7.9 MG/DL (8.5-10.1); CARBON DIOXIDE LEVEL 18 MEQ/L (21-32); CHLORIDE LEVEL 116 MEQ/L (98-107); CK-MB VALUE MASS < 1.0 NG/ML (<3.6); CPK CREATINE PHOSPHOKINASE 107 U/L (26-192); CREATININE FOR GFR 0.72 MG/DL (0.55-1.30); GLOMERULAR FILTRATION RATE > 60.0 (>58); GLUCOSE, FASTING 64 MG/DL (70-100); LIPASE 176 U/L (73-393); MB/CK RELATIVE INDEX 0.93 (< OR =4); POTASSIUM SERUM 3.6 MEQ/L (3.5-5.1); SODIUM LEVEL 143 MEQ/L (136-145); TOTAL PROTEIN 6.9 GM/DL (6.4-8.2); TROPONIN I < 0.02 NG/ML (< 0.10)
[2018-07-27 06:13] LABS: INFLUENZA A AMPLIFICATION NEGATIVE (NEGATIVE); INFLUENZA B AMPLIFICATION NEGATIVE (NEGATIVE)
[2018-07-27 07:28] VITALS: BP 104/55
--- NOTE | 2018-07-27 08:21 | REP ---
Chest x-ray: Two views. History: Chest pain. Comparison chest x-ray: October 21, 2017. Findings: EKG monitoring electrodes overlie the chest. The lungs are symmetrically aerated and free of infiltrate. The lateral view is exposed at a somewhat low level of inspiration. Heart is not enlarged. Pulmonary vasculature is not increased. No significant bony abnormality. Impression: No active disease. Electronically Signed by Mikie Serrano MD 07/27/2018 08:13 A
--- NOTE | 2018-07-27 10:25 | ECGEPIP ---
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
== END 2018-07-27 07:30 | disposition home or self-care (01) ==
LOC: M ED 03:03
DX: R53.81 Other malaise (principal); R94.31 Abnormal electrocardiogram [ECG] [EKG]; G35 Multiple sclerosis; Z88.8 Allergy status to other drugs, medicaments and biological substances; Z88.5 Allergy status to narcotic agent; Z86.711 Personal history of pulmonary embolism; Z98.0 Intestinal bypass and anastomosis status; Z90.49 Acquired absence of other specified parts of digestive tract; Z98.890 Other specified postprocedural states; Z79.899 Other long term (current) drug therapy

== ENCOUNTER → 2018-09-21 | Outpatient (REF) | payer OTHER | LOC: M LAB REF 12:17 | PROVIDERS: ATTEND Physician Assistant | DX: L02.12 Furuncle of neck (principal) ==

== ENCOUNTER 2018-11-23 08:58 | Emergency (ER) | payer OTHER ==
[~2018-11-23] VITALS: Ht 157.5 cm; Wt 115.5 kg
[~2018-11-23 08:58] MED LIST changes: +TRAZ1TAB10 PO; -TRAZO50TA PO
[2018-11-23 09:13] VITALS: BP 110/59
[2018-11-23] MEDS ORDERED: LIPI20TA PO (09:15)
--- NOTE | 2018-11-23 09:53 | REP ---
CT BRAIN WITHOUT IV CONTRAST: CT brain performed without IV contrast. Ventricles are normal in size and position with no midline shift or mass effect. Diaz-white differentiation is well maintained. There is no acute intracranial hemorrhage or extra-axial fluid collection. Bone window examination is unremarkable. IMPRESSION: Negative noncontrast CT brain. Electronically Signed by Adrian Diaz MD 11/23/2018 12:43 P
[2018-11-23 10:36] LABS: BASO # 0.1 10^3/uL (0.0-0.2); BASO % 0.7 % (0.0-1.0); EOS # 0.2 10^3/uL (0.0-0.50); EOS % 2.3 % (0.0-3.0); HEMATOCRIT 37.4 % (36.0-47.0); HEMOGLOBIN 12.4 g/dl (12.0-15.5); LYMPH # 2.1 10^3/uL (1.5-4.5); LYMPH % 27.7 % (24.0-44.0); MEAN CORPUSCULAR HEMOGLOBIN 32.6 pg (27.0-33.0); MEAN CORPUSCULAR HGB CONC 33.2 g/dl (32.0-36.5); MEAN CORPUSCULAR VOLUME 98.4 fl (80.0-96.0); MONO # 0.5 10^3/uL (0.0-0.8); NEUTROPHILS # 4.6 10^3/uL (1.8-7.7); PLATELET COUNT, AUTOMATED 285 10^3/uL (150-450); WHITE BLOOD COUNT 7.5 10^3/uL (4.0-10.0)
[2018-11-23] MEDS ORDERED: NS 1,000 ML IV ONE (10:45)
[2018-11-23] MEDS ORDERED: ACETAMINOPHEN 500 MG TAB PO ONE (10:45)
[2018-11-23] MEDS ORDERED: PROCHLORPERAZINE 10 MG/2 ML VIAL (J0780) IV PRN (10:45)
[2018-11-23] MEDS ORDERED: diphenhydrAMINE INJ 50MG/ML VIAL (J1200) IV ONE (10:45)
[2018-11-23 10:55] LABS: BLOOD UREA NITROGEN 10 MG/DL (7-18); C REACTIVE PROTEIN QUANTITATIV < 0.30 MG/DL (0.00-0.30); CALCIUM LEVEL 8.7 MG/DL (8.5-10.1); CARBON DIOXIDE LEVEL 26 MEQ/L (21-32); CHLORIDE LEVEL 115 MEQ/L (98-107); CREATININE FOR GFR 0.77 MG/DL (0.55-1.30); GLOMERULAR FILTRATION RATE > 60.0 (>58); GLUCOSE, FASTING 88 MG/DL (70-100); POTASSIUM SERUM 3.9 MEQ/L (3.5-5.1); SODIUM LEVEL 144 MEQ/L (136-145)
[2018-11-23 10:57] LABS: ERYTHROCYTE SEDIMENTATION RATE 25 mm/hr (0-20)
== END 2018-11-23 12:09 | disposition home or self-care (01) ==
LOC: EDBD 08:58 → M ED 08:58
DX: G43.909 Migraine, unspecified, not intractable, without status migrainosus (principal); K21.9 Gastro-esophageal reflux disease without esophagitis; K57.92 Diverticulitis of intestine, part unspecified, without perforation or abscess without bleeding; Z86.718 Personal history of other venous thrombosis and embolism; Z87.440 Personal history of urinary (tract) infections; Z88.8 Allergy status to other drugs, medicaments and biological substances; Z88.5 Allergy status to narcotic agent; Z88.6 Allergy status to analgesic agent; Z79.899 Other long term (current) drug therapy; Z79.01 Long term (current) use of anticoagulants
CPT/HCPCS: 70450; 80048; 85025; 85652; 86140; 96374; 96375; 99284; J0780; J1200

== ENCOUNTER → 2019-02-15 | Outpatient (REF) | payer OTHER ==
[~2019-02-15] MED LIST changes: +LIPI20TA PO; -OMEP40CA2 PO; +OMEP40CA97 PO; -RIZA10TA4 PO; +RIZA10TA58 PO
[2019-02-15 12:53] LABS: BASO # 0.1 10^3/uL (0.0-0.2); BASO % 0.8 % (0.0-1.0); EOS # 0.2 10^3/uL (0.0-0.5); EOS % 2.7 % (0.0-3.0); HEMATOCRIT 40.4 % (36.0-47.0); LYMPH % 32.8 % (24.0-44.0); MEAN CORPUSCULAR HEMOGLOBIN 31.1 pg (27.0-33.0); MEAN CORPUSCULAR HGB CONC 32.2 g/dl (32.0-36.5); MEAN CORPUSCULAR VOLUME 96.7 fl (80.0-96.0); MONO # 0.5 10^3/uL (0.0-0.8); NEUTROPHILS # 3.3 10^3/uL (1.5-8.5); NEUTROPHILS % 55.4 % (36.0-66.0); PLATELET COUNT, AUTOMATED 300 10^3/uL (150-450); RED BLOOD COUNT 4.18 10^6/uL (4.00-5.40)
[2019-02-15 13:13] LABS: ALBUMIN 3.6 GM/DL (3.2-5.2); ALT/SGPT 19 U/L (12-78); BILIRUBIN,TOTAL 0.6 MG/DL (0.2-1.0); BLOOD UREA NITROGEN 16 MG/DL (7-18); CARBON DIOXIDE LEVEL 23 MEQ/L (21-32); CHLORIDE LEVEL 115 MEQ/L (98-107); CHOLESTEROL LEVEL 167 MG/DL (<200); CHOLESTEROL RISK RATIO 2.609 (<5); CREATININE FOR GFR 0.86 MG/DL (0.55-1.30); FERRITIN 7 NG/ML (8-252); FOLATE 11.4 NG/ML; FREE T4 0.92 NG/DL (0.76-1.46); GLOMERULAR FILTRATION RATE > 60.0 (>58); GLUCOSE, FASTING 101 MG/DL (70-100); HDL CHOLESTEROL 64 MG/DL (>40); IRON (FE) 41 UG/DL (50-170); LDL CHOLESTEROL 81 MG/DL (<100); MAGNESIUM LEVEL 1.8 MG/DL (1.8-2.4); NON-HDL-C 103 MG/DL; PERCENT SATURATION 9.7 % (13.2-45.0); POTASSIUM SERUM 3.8 MEQ/L (3.5-5.1); SODIUM LEVEL 145 MEQ/L (136-145); TOTAL 25(OH) VITAMIN D 32.4 NG/ML (30.0-100.0); TOTAL IRON BINDING CAPACITY 421 UG/DL (250-450); TOTAL PROTEIN 7.1 GM/DL (6.4-8.2); TRIGLYCERIDES LEVEL 111 MG/DL (<150); VITAMIN B12 LEVEL 796 PG/ML
== END ==
LOC: M SFHCADAM 08:21
PROVIDERS: ATTEND Physician Assistant Medical
DX: D50.9 Iron deficiency anemia, unspecified (principal); E66.01 Morbid (severe) obesity due to excess calories; E53.8 Deficiency of other specified B group vitamins

== ENCOUNTER → 2019-03-27 | Outpatient (CLI) | payer OTHER ==
--- NOTE | 2019-03-27 10:18 | REP ---
Clinical: Bronchitis. Technique: PA and lateral. Comparison: 06/29/2018. Findings: Mediastinum and cardiac silhouette are normal. Subtle coarsened pulmonary parenchymal markings may reflect bronchitis. No focal consolidation. No effusion. No pneumothorax. Skeletal structures intact. Impression: Bronchitis cannot be excluded. No focal consolidation or effusion. Electronically Signed by Tariq Lopes MD 03/27/2019 10:09 A
== END ==
LOC: M ADAMS 09:38
PROVIDERS: ATTEND Physician Assistant Medical
DX: J40 Bronchitis, not specified as acute or chronic (principal)

== ENCOUNTER 2019-04-17 11:50 | Emergency (ER) | payer OTHER ==
[~2019-04-17] VITALS: Ht 157.5 cm; Wt 110.9 kg
[2019-04-17] MEDS ORDERED: PEGPOW (12:02)
[2019-04-17] MEDS ORDERED: ONDA4TAB5 (12:02)
[2019-04-17] MEDS ORDERED: ORIL200T (12:02)
[2019-04-17] MEDS ORDERED: FERR325T18 (12:02)
[2019-04-17] MEDS ORDERED: D 50CAP2 (12:02)
[2019-04-17 13:12] LABS: BASO # 0.1 10^3/uL (0.0-0.2); EOS # 0.1 10^3/uL (0.0-0.5); EOS % 1.5 % (0.0-3.0); HEMATOCRIT 41.3 % (36.0-47.0); HEMOGLOBIN 12.9 g/dl (12.0-15.5); LYMPH # 3.2 10^3/uL (1.5-5.0); LYMPH % 44.2 % (24.0-44.0); MEAN CORPUSCULAR HEMOGLOBIN 29.9 pg (27.0-33.0); MEAN CORPUSCULAR HGB CONC 31.2 g/dl (32.0-36.5); MEAN CORPUSCULAR VOLUME 95.8 fl (80.0-96.0); MONO # 0.5 10^3/uL (0.0-0.8); MONO % 6.7 % (0.0-5.0); NEUTROPHILS # 3.4 10^3/uL (1.5-8.5); NEUTROPHILS % 46.3 % (36.0-66.0); PLATELET COUNT, AUTOMATED 334 10^3/uL (150-450); RED BLOOD COUNT 4.31 10^6/uL (4.00-5.40); WHITE BLOOD COUNT 7.3 10^3/uL (4.0-10.0)
[2019-04-17 13:41] LABS: ALBUMIN 3.8 GM/DL (3.2-5.2); ALT/SGPT 23 U/L (12-78); BILIRUBIN,DIRECT < 0.1 MG/DL (0.0-0.2); BILIRUBIN,TOTAL 0.3 MG/DL (0.2-1.0); BLOOD UREA NITROGEN 14 MG/DL (7-18); CALCIUM LEVEL 9.2 MG/DL (8.5-10.1); CARBON DIOXIDE LEVEL 22 MEQ/L (21-32); CHLORIDE LEVEL 111 MEQ/L (98-107); CREATININE FOR GFR 0.88 MG/DL (0.55-1.30); GLOMERULAR FILTRATION RATE > 60.0 (>58); GLUCOSE, FASTING 87 MG/DL (70-100); LIPASE 144 U/L (73-393); POTASSIUM SERUM 3.9 MEQ/L (3.5-5.1); SODIUM LEVEL 142 MEQ/L (136-145); TOTAL PROTEIN 7.5 GM/DL (6.4-8.2)
[2019-04-17] MEDS ORDERED: PROMETHAZINE INJ 25 MG/ML VIAL (J2550) IM ONE (14:00)
--- NOTE | 2019-04-17 15:25 | REP ---
Right upper quadrant sonography: History: Right upper quadrant pain. Comparison study: None. Findings: Scan quality is inhibited by patient body habitus. Scanning through the right upper quadrant of the abdomen demonstrates a normal sized, thin-walled gallbladder without evidence of stone or polyp. Common bile duct is normal measuring 0.4 cm in greatest diameter. No focal liver lesion is seen. Liver size is normal. There is evidence of mild fatty infiltration of the liver. No pancreatic abnormality is observed. The pancreas is partially obscured by bowel gas. No right renal abnormality is seen. There is no evidence of ascites. The right kidney measures 11.1 x 5.8 x 5.0 cm. Impression: Evidence of mild fatty infiltration of the liver. Otherwise unremarkable right upper quadrant sonography. Electronically Signed by Mikie Serrano MD 04/17/2019 03:16 P
[2019-04-17] MEDS ORDERED: PROM25TA12 PO (15:36)
[2019-04-17 15:46] VITALS: BP 124/66
== END 2019-04-17 15:46 | disposition home or self-care (01) ==
LOC: M ED 11:50
DX: R10.11 Right upper quadrant pain (principal); R11.0 Nausea; E78.5 Hyperlipidemia, unspecified; F33.9 Major depressive disorder, recurrent, unspecified; Z87.19 Personal history of other diseases of the digestive system; Z98.84 Bariatric surgery status; Z79.899 Other long term (current) drug therapy; Z79.01 Long term (current) use of anticoagulants; Z88.5 Allergy status to narcotic agent; Z88.8 Allergy status to other drugs, medicaments and biological substances

== ENCOUNTER → 2019-05-23 | Outpatient (CLI) | payer BC, OTHER ==
[~2019-05-23] MED LIST changes: +D 50CAP2; +FERR325T18; +ONDA-83; +ONDA-83 PO; -ONDA4TAB5 PO; +ORIL200T; +PEGPOW; +PROM25TA12 PO; +RALT40TA PO; +SUCR1ORA PO; -SUCR1SUS PO; +TRUVTAB PO
--- NOTE | 2019-05-24 02:14 | REP ---
Clinical: Fever . Comparison: 03/27/2019 . Technique: PA and lateral. Findings: The mediastinum and cardiac silhouette are normal. The lung zepeda are clear and without acute consolidation, effusion, or pneumothorax. The skeletal structures are intact and normal. Impression: 1. No acute cardiopulmonary process. Electronically Signed by Tariq Lopes MD 05/24/2019 02:05 A
== END ==
LOC: M ADAMS 15:58
PROVIDERS: ATTEND Physician Assistant
DX: R05 Cough (principal); R50.9 Fever, unspecified

== ENCOUNTER → 2019-05-29 | Outpatient (CLI) | payer BC, OTHER ==
[~2019-05-29] MED LIST changes: +BENA25CA4 PO
--- NOTE | 2019-05-29 14:24 | REP ---
Right lower extremity Duplex Doppler venous ultrasound: Real time compression and duplex Doppler interrogation of the right lower extremity deep venous system is performed. The right common femoral, superficial femoral and popliteal veins are fully compressible with transducer pressure and demonstrate normal spontaneous and phasic flow, without evidence of deep venous thrombosis. Impression: No evidence of deep venous thrombosis of the right lower extremity femoral popliteal venous system. Electronically Signed by Adrian Diaz MD 05/29/2019 01:41 P
== END ==
LOC: M RAD 12:19
PROVIDERS: ATTEND Family Medicine
DX: M79.661 Pain in right lower leg (principal)

== ENCOUNTER 2019-06-03 09:27 | Emergency (ER) | payer OTHER ==
[~2019-06-03] VITALS: Ht 157.5 cm; Wt 108.8 kg
[~2019-06-03 09:27] MED LIST changes: -BENA25CA4 PO; -RALT40TA PO; +RALTEGRAVIR 400 MG TAB (ISENTRESS) PO SCH; +TRUVADA 200MG/300MG TABLET PO SCH; -TRUVTAB PO
[2019-06-03 10:22] LABS: BASO # 0.1 10^3/uL (0.0-0.2); BASO % 0.7 % (0.0-1.0); EOS # 0.1 10^3/uL (0.0-0.5); EOS % 1.7 % (0.0-3.0); HEMOGLOBIN 12.9 g/dl (12.0-15.5); LYMPH # 2.1 10^3/uL (1.5-5.0); LYMPH % 29.9 % (24.0-44.0); MEAN CORPUSCULAR HEMOGLOBIN 29.9 pg (27.0-33.0); MEAN CORPUSCULAR HGB CONC 31.5 g/dl (32.0-36.5); MEAN CORPUSCULAR VOLUME 94.9 fl (80.0-96.0); MONO # 0.4 10^3/uL (0.0-0.8); MONO % 6.3 % (0.0-5.0); NEUTROPHILS # 4.2 10^3/uL (1.5-8.5); NEUTROPHILS % 61.1 % (36.0-66.0); PLATELET COUNT, AUTOMATED 335 10^3/uL (150-450); RED BLOOD COUNT 4.32 10^6/uL (4.00-5.40); WHITE BLOOD COUNT 6.9 10^3/uL (4.0-10.0)
[2019-06-03 10:44] LABS: ALBUMIN 3.6 GM/DL (3.2-5.2); ALT/SGPT 18 U/L (12-78); BILIRUBIN,TOTAL 0.4 MG/DL (0.2-1.0); BLOOD UREA NITROGEN 11 MG/DL (7-18); CALCIUM LEVEL 8.4 MG/DL (8.5-10.1); CARBON DIOXIDE LEVEL 24 MEQ/L (21-32); CHLORIDE LEVEL 114 MEQ/L (98-107); CREATININE FOR GFR 0.83 MG/DL (0.55-1.30); GLOMERULAR FILTRATION RATE > 60.0 (>58); GLUCOSE, FASTING 85 MG/DL (70-100); POTASSIUM SERUM 3.7 MEQ/L (3.5-5.1); SODIUM LEVEL 145 MEQ/L (136-145); TOTAL PROTEIN 7.1 GM/DL (6.4-8.2)
[2019-06-03] MEDS ORDERED: RALT40TA PO (10:57)
[2019-06-03] MEDS ORDERED: TRUVTAB PO (10:57)
[2019-06-03] MEDS ORDERED: cefTRIAXone SOD 250 MG VIAL (J0696) IM ONE (11:00)
[2019-06-03] MEDS ORDERED: metroNIDAZOLE (FLAGYL) 500 MG TAB PO ONE (11:00)
[2019-06-03] MEDS ORDERED: EXPOSURE KIT-ADULT 7 DAY SUPPLY PO ONE (11:00)
[2019-06-03] MEDS ORDERED: LIDOCAINE 1% SDV 5 ML VIAL DILUENT ONE (11:00)
[2019-06-03] MEDS ORDERED: AZITHROMYCIN 250 MG TAB PO ONE (11:00)
[2019-06-03] MEDS ORDERED: ADACEL/BOOSTRIX VACCINE (DIPHTH/PERTUSS/ACELL/TETANUS)0.5ML SYR (90715) IM ONE (13:45)
[2019-06-03] MEDS ORDERED: ACETAMINOPHEN 500 MG TAB PO ONE (14:00)
[2019-06-03 15:16] VITALS: BP 127/80
[2019-06-04 11:24] LABS: HEPATITIS B SURFACE ANTIBODY POSITIVE (POSITIVE)
[2019-06-04 11:34] LABS: HEPATITIS B SURFACE ANTIGEN NEGATIVE (NEGATIVE)
[2019-06-04 12:02] LABS: HEPATITIS C VIRUS ABY INDEX < 0.0 INDEX (<0.8)
[2019-06-04 12:03] LABS: HIV 1&2 SCREEN CENTAUR NEGATIVE (NEGATIVE)
== END 2019-06-03 15:30 | disposition home or self-care (01) ==
LOC: EEVIPCON 09:27 → M ED 09:27
DX: T76.21XA Adult sexual abuse, suspected, initial encounter (principal); Z79.899 Other long term (current) drug therapy; Z88.8 Allergy status to other drugs, medicaments and biological substances; Z91.5 Personal history of self-harm
CPT/HCPCS: 36415; 80053; 85025; 86706; 86780; 86803; 87340; 87389; 90471; 90715; 96372; 99284; J0696

== ENCOUNTER → 2019-06-04 | Outpatient (REF) | payer OTHER ==
[~2019-06-04] MED LIST changes: +RALT40TA PO; -RALTEGRAVIR 400 MG TAB (ISENTRESS) PO SCH; -TRUVADA 200MG/300MG TABLET PO SCH; +TRUVTAB PO
[2019-06-04 13:45] LABS: HEMATOCRIT 39.1 % (36.0-47.0); HEMOGLOBIN 12.1 g/dl (12.0-15.5); MEAN CORPUSCULAR HGB CONC 30.9 g/dl (32.0-36.5); PLATELET COUNT, AUTOMATED 319 10^3/uL (150-450); RED BLOOD COUNT 4.03 10^6/uL (4.00-5.40); WHITE BLOOD COUNT 6.7 10^3/uL (4.0-10.0)
[2019-06-04 14:18] LABS: PERCENT SATURATION 11.7 % (13.2-45.0)
== END ==
LOC: M SFHCADAM 11:32
PROVIDERS: ATTEND Physician Assistant Medical
DX: D50.9 Iron deficiency anemia, unspecified (principal)

== ENCOUNTER 2019-06-11 22:34 | Emergency (ER) | payer BC, OTHER ==
[~2019-06-11] VITALS: Ht 157.5 cm; Wt 109.2 kg
[2019-06-12] MEDS ORDERED: NS 1,000 ML IV ONE (00:30)
[2019-06-12 00:44] LABS: BASO % 0.4 % (0.0-1.0); EOS # 0.2 10^3/uL (0.0-0.5); EOS % 1.6 % (0.0-3.0); HEMATOCRIT 39.2 % (36.0-47.0); HEMOGLOBIN 12.3 g/dl (12.0-15.5); LYMPH # 2.1 10^3/uL (1.5-5.0); LYMPH % 21.3 % (24.0-44.0); MEAN CORPUSCULAR HEMOGLOBIN 30.6 pg (27.0-33.0); MEAN CORPUSCULAR HGB CONC 31.4 g/dl (32.0-36.5); MEAN CORPUSCULAR VOLUME 97.5 fl (80.0-96.0); MONO # 0.7 10^3/uL (0.0-0.8); MONO % 7.2 % (0.0-5.0); NEUTROPHILS # 6.9 10^3/uL (1.5-8.5); NEUTROPHILS % 69.1 % (36.0-66.0); PLATELET COUNT, AUTOMATED 350 10^3/uL (150-450); RED BLOOD COUNT 4.02 10^6/uL (4.00-5.40)
[2019-06-12 01:04] LABS: ALBUMIN 3.8 GM/DL (3.2-5.2); ALT/SGPT 27 U/L (12-78); BILIRUBIN,DIRECT < 0.1 MG/DL (0.0-0.2); BILIRUBIN,TOTAL 0.2 MG/DL (0.2-1.0); BLOOD UREA NITROGEN 12 MG/DL (7-18); CALCIUM LEVEL 8.6 MG/DL (8.5-10.1); CARBON DIOXIDE LEVEL 22 MEQ/L (21-32); CHLORIDE LEVEL 109 MEQ/L (98-107); CPK CREATINE PHOSPHOKINASE 139 U/L (26-192); CREATININE FOR GFR 0.88 MG/DL (0.55-1.30); GLOMERULAR FILTRATION RATE > 60.0 (>58); GLUCOSE, FASTING 94 MG/DL (70-100); LIPASE 101 U/L (73-393); POTASSIUM SERUM 3.5 MEQ/L (3.5-5.1); SODIUM LEVEL 140 MEQ/L (136-145); TOTAL PROTEIN 7.3 GM/DL (6.4-8.2)
[2019-06-12 02:57] LABS: APPEARANCE, URINE HAZY (CLEAR); BACTERIA, URINE AUTO NEGATIVE (NEGATIVE); BILIRUBIN, URINE AUTO NEGATIVE (NEGATIVE); BLOOD, URINE BLOOD NEGATIVE (NEGATIVE); CALCIUM OXALATE CRYSTALS SMALL; COLOR, URINE YELLOW (YELLOW); GLUCOSE, URINE (UA) AUTO NEGATIVE (NEGATIVE); KETONE, URINE AUTO NEGATIVE (NEGATIVE); LEUKOCYTE ESTERASE, URINE AUTO NEGATIVE (NEGATIVE); MUCUS, URINE SMALL (NEGATIVE); NITRITE, URINE AUTO NEGATIVE (NEGATIVE); PROTEIN, URINE AUTO NEGATIVE (NEGATIVE); RBC, URINE AUTO 3 /HPF (0-3); SPECIFIC GRAVITY URINE AUTO 1.017 (1.002-1.035); SQUAMOUS EPITHELIAL CELL UR AU 1 /HPF (0-6); UROBILINOGEN, URINE AUTO 0.2 mg/dL (0.0-2.0); WBC, URINE AUTO 2 /HPF (0-3)
[2019-06-12 04:35] VITALS: BP 123/65
== END 2019-06-12 07:40 | disposition home or self-care (01) ==
LOC: M ED 22:34
DX: R21 Rash and other nonspecific skin eruption (principal); T50.905A Adverse effect of unspecified drugs, medicaments and biological substances, initial encounter; K21.9 Gastro-esophageal reflux disease without esophagitis; F10.10 Alcohol abuse, uncomplicated; D64.9 Anemia, unspecified; E66.9 Obesity, unspecified; E78.5 Hyperlipidemia, unspecified; F42.9 Obsessive-compulsive disorder, unspecified; Z79.899 Other long term (current) drug therapy; Z88.6 Allergy status to analgesic agent; Z88.8 Allergy status to other drugs, medicaments and biological substances; Z98.84 Bariatric surgery status

== ENCOUNTER 2019-06-15 15:54 | Emergency (ER) | payer BC, OTHER ==
[~2019-06-15] VITALS: Ht 157.5 cm; Wt 108.2 kg
[2019-06-15] MEDS ORDERED: BENA25CA4 PO (16:04)
[2019-06-15] MEDS ORDERED: methylPREDNISolone INJ 125 MG/2 ML VIAL (J2930) IV ONE (16:45)
[2019-06-15] MEDS ORDERED: NS 1,000 ML IV ONE (16:45)
[2019-06-15] MEDS ORDERED: FAMOTIDINE INJ 20MG/2ML VIAL (S0028) IVP ONE (16:45)
[2019-06-15 17:26] LABS: BASO % 0.4 % (0.0-1.0); EOS # 0.2 10^3/uL (0.0-0.5); EOS % 3.2 % (0.0-3.0); HEMATOCRIT 37.9 % (36.0-47.0); HEMOGLOBIN 12.2 g/dl (12.0-15.5); LYMPH # 1.9 10^3/uL (1.5-5.0); MEAN CORPUSCULAR HEMOGLOBIN 31.3 pg (27.0-33.0); MEAN CORPUSCULAR HGB CONC 32.2 g/dl (32.0-36.5); MEAN CORPUSCULAR VOLUME 97.2 fl (80.0-96.0); MONO # 0.5 10^3/uL (0.0-0.8); MONO % 7.3 % (0.0-5.0); NEUTROPHILS # 4.6 10^3/uL (1.5-8.5); NEUTROPHILS % 62.8 % (36.0-66.0); PLATELET COUNT, AUTOMATED 321 10^3/uL (150-450); WHITE BLOOD COUNT 7.3 10^3/uL (4.0-10.0)
[2019-06-15 17:56] LABS: ALBUMIN 3.4 GM/DL (3.2-5.2); ALT/SGPT 25 U/L (12-78); BILIRUBIN,DIRECT < 0.1 MG/DL (0.0-0.2); BILIRUBIN,TOTAL 0.2 MG/DL (0.2-1.0); LIPASE 91 U/L (73-393); TOTAL PROTEIN 6.5 GM/DL (6.4-8.2)
[2019-06-15 19:37] VITALS: BP 130/63
[2019-06-15] MEDS ORDERED: PRED20TA PO (20:08)
== END 2019-06-15 20:27 | disposition home or self-care (01) ==
LOC: M ED 15:54
DX: L50.9 Urticaria, unspecified (principal); T50.995A Adverse effect of other drugs, medicaments and biological substances, initial encounter; X58.XXXA Exposure to other specified factors, initial encounter; Y92.89 Other specified places as the place of occurrence of the external cause; E78.5 Hyperlipidemia, unspecified; K21.9 Gastro-esophageal reflux disease without esophagitis; Z79.899 Other long term (current) drug therapy; Z79.890 Hormone replacement therapy; Z88.5 Allergy status to narcotic agent; Z88.8 Allergy status to other drugs, medicaments and biological substances
CPT/HCPCS: 80047; 80076; 81001; 83690; 85025; 96361; 96374; 96375; 99284; J2930

== ENCOUNTER → 2019-07-09 | Outpatient (REF) | payer BC, OTHER ==
[~2019-07-09] MED LIST changes: +BENA25CA4 PO
[2019-07-09 17:39] LABS: HIV 1&2 SCREEN CENTAUR NEGATIVE (NEGATIVE)
== END ==
LOC: M SFHCADAM 14:56
PROVIDERS: ATTEND Physician Assistant Medical
DX: T74.21XA Adult sexual abuse, confirmed, initial encounter (principal)

== ENCOUNTER → 2019-07-29 | Outpatient (CLI) | payer OTHER | LOC: M LABSMTC 09:51 | PROVIDERS: ATTEND Family Medicine | DX: Z11.59 Encounter for screening for other viral diseases (principal); Z20.828 Contact with and (suspected) exposure to other viral communicable diseases | CPT/HCPCS: 87502; U0002 ==

== ENCOUNTER → 2019-09-18 | Outpatient (REF) | payer OTHER ==
[~2019-09-18] MED LIST changes: +ABIL1TAB13; +DOXY100T; +EFFE150C2; +TOPA200T7 PO
[2019-09-18 17:59] LABS: BASO # 0.1 10^3/uL (0.0-0.2); BASO % 0.8 % (0.0-1.0); EOS # 0.2 10^3/uL (0.0-0.5); EOS % 2.7 % (0.0-3.0); HEMATOCRIT 37.7 % (36.0-47.0); LYMPH # 2.8 10^3/uL (1.5-5.0); LYMPH % 37.8 % (24.0-44.0); MEAN CORPUSCULAR HEMOGLOBIN 30.6 pg (27.0-33.0); MEAN CORPUSCULAR HGB CONC 31.8 g/dl (32.0-36.5); MEAN CORPUSCULAR VOLUME 96.2 fl (80.0-96.0); MONO # 0.6 10^3/uL (0.0-0.8); MONO % 8.6 % (0.0-5.0); NEUTROPHILS # 3.7 10^3/uL (1.5-8.5); PLATELET COUNT, AUTOMATED 332 10^3/uL (150-450); RED BLOOD COUNT 3.92 10^6/uL (4.00-5.40); WHITE BLOOD COUNT 7.4 10^3/uL (4.0-10.0)
[2019-09-18 18:14] LABS: INR 1.14; PARTIAL THROMBOPLASTIN TIME 34.8 SECONDS (25.0-38.4); PROTHROMBIN TIME 14.3 SECONDS (11.8-14.0)
[2019-09-19 09:31] LABS: HIV 1&2 SCREEN CENTAUR NEGATIVE (NEGATIVE)
== END ==
LOC: M SFHCADAM 15:07
PROVIDERS: ATTEND Physician Assistant Medical
DX: R40.0 Somnolence (principal); R53.83 Other fatigue; R23.3 Spontaneous ecchymoses; T74.21XA Adult sexual abuse, confirmed, initial encounter

== ENCOUNTER 2019-09-29 07:39 | Emergency (ER) | payer BC, OTHER ==
[~2019-09-29] VITALS: Ht 157.5 cm; Wt 104.8 kg
[~2019-09-29 07:39] MED LIST changes: -ABIL1TAB13; -DOXY100T; -EFFE150C2; -TOPA200T7 PO
[2019-09-29] MEDS ORDERED: EFFE150C2 (07:49)
[2019-09-29] MEDS ORDERED: DOXY100T (07:49)
[2019-09-29] MEDS ORDERED: TOPA200T7 PO (07:49)
[2019-09-29] MEDS ORDERED: ABIL1TAB13 (07:49)
[2019-09-29] MEDS ORDERED: NS 1,000 ML IV ONE (08:30)
[2019-09-29] MEDS ORDERED: PANTOPRAZOLE 40MG VIAL (C9113 PER 1) IV ONE (08:30)
[2019-09-29] MEDS ORDERED: PROMETHAZINE INJ 25 MG/ML VIAL (J2550) IV ONE (09:00)
[2019-09-29 09:15] LABS: BASO # 0.1 10^3/uL (0.0-0.2); BASO % 0.7 % (0.0-1.0); EOS # 0.1 10^3/uL (0.0-0.5); EOS % 1.6 % (0.0-3.0); HEMATOCRIT 36.4 % (36.0-47.0); HEMOGLOBIN 11.8 g/dl (12.0-15.5); LYMPH # 2.1 10^3/uL (1.5-5.0); LYMPH % 30.4 % (24.0-44.0); MEAN CORPUSCULAR HEMOGLOBIN 30.6 pg (27.0-33.0); MEAN CORPUSCULAR HGB CONC 32.4 g/dl (32.0-36.5); MEAN CORPUSCULAR VOLUME 94.3 fl (80.0-96.0); MONO # 0.5 10^3/uL (0.0-0.8); MONO % 6.7 % (0.0-5.0); NEUTROPHILS # 4.1 10^3/uL (1.5-8.5); NEUTROPHILS % 60.3 % (36.0-66.0); PLATELET COUNT, AUTOMATED 301 10^3/uL (150-450); RED BLOOD COUNT 3.86 10^6/uL (4.00-5.40); WHITE BLOOD COUNT 6.9 10^3/uL (4.0-10.0)
[2019-09-29 09:20] LABS: INR 1.43; PROTHROMBIN TIME 17.2 SECONDS (11.8-14.0)
[2019-09-29 09:21] LABS: PARTIAL THROMBOPLASTIN TIME 34.2 SECONDS (25.0-38.4)
[2019-09-29 09:41] LABS: ALBUMIN 3.4 GM/DL (3.2-5.2); ALT/SGPT 19 U/L (12-78); BILIRUBIN,DIRECT < 0.1 MG/DL (0.0-0.2); BILIRUBIN,TOTAL 0.2 MG/DL (0.2-1.0); BLOOD UREA NITROGEN 10 MG/DL (7-18); CALCIUM LEVEL 8.5 MG/DL (8.5-10.1); CARBON DIOXIDE LEVEL 22 MEQ/L (21-32); CHLORIDE LEVEL 112 MEQ/L (98-107); CK-MB VALUE MASS 1.1 NG/ML (<3.6); CPK CREATINE PHOSPHOKINASE 107 U/L (26-192); CREATININE FOR GFR 0.82 MG/DL (0.55-1.30); GLOMERULAR FILTRATION RATE > 60.0 (>58); GLUCOSE, FASTING 78 MG/DL (70-100); LIPASE 109 U/L (73-393); MB/CK RELATIVE INDEX 1.03 (< OR =4); POTASSIUM SERUM 3.6 MEQ/L (3.5-5.1); SODIUM LEVEL 143 MEQ/L (136-145); TOTAL PROTEIN 6.9 GM/DL (6.4-8.2); TROPONIN I < 0.02 NG/ML (< 0.10)
[2019-09-29] MEDS: GASTROGRAFIN SOLUTION 30ML PO SCH ×2 (09:44→10:27)
[2019-09-29] MEDS ORDERED: ISOVUE-370 76% 100ML VIAL As Ordered ONE (10:47)
[2019-09-29 11:19] VITALS: BP 109/57
--- NOTE | 2019-09-29 13:29 | REP ---
CHEST: Two views. There is no evidence of acute infiltrate. No pleural effusion is seen. The heart is normal in size. The mediastinal silhouette is unremarkable. The visualized osseous structures are intact. IMPRESSION: No acute pulmonary disease. Electronically Signed by Adrian Diaz MD 09/29/2019 09:40 P
--- NOTE | 2019-09-29 15:01 | REP ---
CT ABDOMEN AND PELVIS WITH ORAL AND IV CONTRAST: TECHNIQUE: Axial contrast-enhanced images from the lung bases to the pubic symphysis using 100 mL Isovue-370 intravenous contrast material with multiplanar reformations. No acute infiltrate is seen in the visualized lung bases. The liver demonstrates no mass. The gallbladder is grossly unremarkable. The spleen is normal in size with no intrinsic abnormality. The adrenal glands are normal. No pancreatic mass is seen. No renal abnormality is seen. The abdominal aorta is normal in caliber with no aneurysm. There is no significant adenopathy. There is no free air or free fluid. There is no bowel wall thickening. There is evidence of prior gastric bypass surgery. There is diffuse diverticulosis of the sigmoid and left colon without evidence of acute diverticulitis. The appendix is normal. No pelvic mass is seen. Urinary bladder appears unremarkable. IMPRESSION: Sigmoid and left colonic diverticulosis without acute diverticulitis. No appendicitis. No evidence of bowel obstruction, free air, or free fluid. Electronically Signed by Adrian Diaz MD 09/29/2019 09:49 P
--- NOTE | 2019-09-30 19:41 | ECGEPIP ---
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
== END 2019-09-29 13:08 | disposition home or self-care (01) ==
LOC: M ED 07:39
DX: K57.30 Diverticulosis of large intestine without perforation or abscess without bleeding (principal); K21.9 Gastro-esophageal reflux disease without esophagitis; F41.9 Anxiety disorder, unspecified; R07.89 Other chest pain; E78.5 Hyperlipidemia, unspecified; F32.9 Major depressive disorder, single episode, unspecified; M54.9 Dorsalgia, unspecified; G89.29 Other chronic pain; Z86.718 Personal history of other venous thrombosis and embolism; Z86.711 Personal history of pulmonary embolism; Z87.440 Personal history of urinary (tract) infections; Z98.84 Bariatric surgery status; Z82.49 Family history of ischemic heart disease and other diseases of the circulatory system; Z88.8 Allergy status to other drugs, medicaments and biological substances; Z88.5 Allergy status to narcotic agent; Z79.899 Other long term (current) drug therapy; Z79.01 Long term (current) use of anticoagulants
CPT/HCPCS: 71046; 74177; 80048; 80076; 81001; 82550; 82553; 83690; 85025; 85610; 85730; 93005; 96361; 96374; 96375; 99284; C9113; Q9963; Q9967

== ENCOUNTER → 2019-10-18 | Outpatient (CLI) | payer OTHER ==
[~2019-10-18] MED LIST changes: +ABIL1TAB13; +AMOX875T2 PO; +AZIT-10 PO; +CARA1TAB6 PO; +CEFD300CAP PO; -D 50CAP2; +D 50CAP2 PO; +DEXA6TAB PO; +DICY10CA13 PO; +DOXY-350 PO; +DOXY100T; +EFFE150C2; +LORA-674 PO; -ONDA-83; +ONDA4TAB6 PO; +PANT40TA29 PO; -PANT40TA3 PO; +SUCR1TAB56 PO; +TOPA200T7 PO; +VENTAER INH; +ZITHTAB PO
== END ==
LOC: M LABSMTC 12:47
PROVIDERS: ATTEND Family Medicine
DX: Z11.59 Encounter for screening for other viral diseases (principal)
CPT/HCPCS: C9803; U0003

== ENCOUNTER → 2019-11-09 | Outpatient (CLI) | payer MEDICAID ==
[~2019-11-09] MED LIST changes: -AMOX875T2 PO; -AZIT-10 PO; -CARA1TAB6 PO; -CEFD300CAP PO; +D 50CAP2; -D 50CAP2 PO; -DEXA6TAB PO; -DOXY-350 PO; -LORA-674 PO; +ONDA-83; -SUCR1TAB56 PO; -VENTAER INH; -ZITHTAB PO
== END ==
LOC: M OUTALCOH 08:21
PROVIDERS: ATTEND Psychiatry & Neurology Addiction Medicine
DX: F10.20 Alcohol dependence, uncomplicated (principal)

== ENCOUNTER → 2019-11-30 | Outpatient (RCR) | payer MEDICAID | LOC: M OUTALCOH 11-20 09:06 | PROVIDERS: ATTEND Psychiatry & Neurology Addiction Medicine | DX: F10.20 Alcohol dependence, uncomplicated (principal) ==

== ENCOUNTER → 2020-01-01 | Outpatient (REF) | payer MEDICAID, OTHER ==
[2020-01-01 21:46] LABS: CHLAMYDIA DNA AMPLIFICATION NEGATIVE (NEGATIVE); GC DNA AMPLIFICATION NEGATIVE (NEGATIVE)
== END ==
LOC: M WHC 16:00
PROVIDERS: ATTEND Nurse Practitioner Women's Health
DX: Z11.3 Encounter for screening for infections with a predominantly sexual mode of transmission (principal)

== ENCOUNTER 2020-02-21 23:36 | Emergency (ER) | payer MEDICAID, OTHER ==
[~2020-02-21] VITALS: Ht 157.5 cm; Wt 107.1 kg
[~2020-02-21 23:36] MED LIST changes: -DICY10CA13 PO; -ONDA4TAB6 PO
[2020-02-21 23:37] VITALS: BP 127/68
[2020-02-22 01:52] LABS: BASO # 0.1 10^3/uL (0.0-0.2); BASO % 0.6 % (0.0-1.0); EOS # 0.2 10^3/uL (0.0-0.5); HEMOGLOBIN 11.5 g/dl (12.0-15.5); LYMPH # 2.6 10^3/uL (1.5-5.0); LYMPH % 28.9 % (24.0-44.0); MEAN CORPUSCULAR HEMOGLOBIN 27.2 pg (27.0-33.0); MEAN CORPUSCULAR HGB CONC 29.5 g/dl (32.0-36.5); MEAN CORPUSCULAR VOLUME 92.2 fl (80.0-96.0); MONO # 0.5 10^3/uL (0.0-0.8); MONO % 5.9 % (0.0-5.0); NEUTROPHILS # 5.5 10^3/uL (1.5-8.5); NEUTROPHILS % 62.3 % (36.0-66.0); PLATELET COUNT, AUTOMATED 362 10^3/uL (150-450); RED BLOOD COUNT 4.23 10^6/uL (4.00-5.40); WHITE BLOOD COUNT 8.9 10^3/uL (4.0-10.0)
[2020-02-22 02:14] LABS: ERYTHROCYTE SEDIMENTATION RATE 21 mm/hr (0-20)
--- NOTE | 2020-02-22 02:24 | REPVR ---
PROCEDURE INFORMATION: Exam: XR Left Elbow Exam date and time: 02/22/2020 1:26 AM Age: 44 years old Clinical indication: Swelling; Elbow; Left; Additional info: Shoulder and elbow pain with swelling TECHNIQUE: Imaging protocol: XR Left elbow. Views: 3 or more views. COMPARISON: No relevant prior studies available. FINDINGS: Bones/joints: No fracture. No dislocation. Joint spaces are preserved. Soft tissues: Normal. No soft tissue gas. IMPRESSION: No acute findings. Electronically signed by: Giovanny aMrtinez On 02/22/2020 02:24:04 AM
--- NOTE | 2020-02-22 02:25 | REPVR ---
PROCEDURE INFORMATION: Exam: XR Left Shoulder Exam date and time: 02/22/2020 1:26 AM Age: 44 years old Clinical indication: Swelling; Shoulder; Left; Additional info: Shoulder and elbow pain with swelling TECHNIQUE: Imaging protocol: XR Left shoulder. Views: 2 or more views. Transscapular view was also included. COMPARISON: No relevant prior studies available. FINDINGS: Bones/joints: No acute fracture. No dislocation. Small focal calcification adjacent to the humeral head. Soft tissues: Normal. IMPRESSION: 1. No acute fracture. 2. Small focal calcification adjacent to the humeral head. Possible loose body or calcific tendinitis. Electronically signed by: Giovanny Martinez On 02/22/2020 02:24:58 AM
[2020-02-22] MEDS ORDERED: NORCO, ANEXSIA 5/325MG TABLET (HYDROcodone/ACETAMINOPHEN) PO ONE (02:30)
== END 2020-02-22 02:24 | disposition home or self-care (01) ==
LOC: M ED 23:36
DX: M25.512 Pain in left shoulder (principal); M25.522 Pain in left elbow; K21.9 Gastro-esophageal reflux disease without esophagitis; F41.9 Anxiety disorder, unspecified; F32.9 Major depressive disorder, single episode, unspecified; Z88.6 Allergy status to analgesic agent; Z88.8 Allergy status to other drugs, medicaments and biological substances; Z98.84 Bariatric surgery status

== ENCOUNTER → 2020-03-03 | Outpatient (REF) | payer OTHER ==
[~2020-03-03] MED LIST changes: +DICY10CA13 PO; +ONDA4TAB6 PO
[2020-03-03 17:10] LABS: AMORPHOUS SEDIMENT SMALL (NEGATIVE); APPEARANCE, URINE CLOUDY (CLEAR); BACTERIA, URINE AUTO NEGATIVE (NEGATIVE); BILIRUBIN, URINE AUTO NEGATIVE (NEGATIVE); BLOOD, URINE BLOOD NEGATIVE (NEGATIVE); COLOR, URINE YELLOW (YELLOW); GLUCOSE, URINE (UA) AUTO NEGATIVE (NEGATIVE); KETONE, URINE AUTO NEGATIVE (NEGATIVE); LEUKOCYTE ESTERASE, URINE AUTO NEGATIVE (NEGATIVE); MUCUS, URINE SMALL (NEGATIVE); NITRITE, URINE AUTO NEGATIVE (NEGATIVE); PROTEIN, URINE AUTO NEGATIVE (NEGATIVE); RBC, URINE AUTO 0 /HPF (0-3); SQUAMOUS EPITHELIAL CELL UR AU 3 /HPF (0-6); UROBILINOGEN, URINE AUTO 0.2 mg/dL (0.0-2.0); WBC, URINE AUTO 0 /HPF (0-3)
[2020-03-03 19:18] LABS: C REACTIVE PROTEIN QUANTITATIV < 0.30 MG/DL (0.00-0.30); RHEUMATOID FACTOR QUANT < 10.0 IU/ML (<15.0)
== END ==
LOC: M SFHCADAM 14:52
PROVIDERS: ATTEND Physician Assistant Medical
DX: R31.9 Hematuria, unspecified (principal); M25.50 Pain in unspecified joint

== ENCOUNTER 2020-03-09 18:48 | Emergency (ER) | payer OTHER ==
[~2020-03-09] VITALS: Ht 157.5 cm; Wt 99.8 kg
[~2020-03-09 18:48] MED LIST changes: -DICY10CA13 PO; -ONDA4TAB6 PO
[2020-03-09 18:49] VITALS: BP 165/84
[2020-03-09] MEDS ORDERED: DICYCLOMINE 10 MG CAP PO ONE (20:00)
[2020-03-09] MEDS ORDERED: NS 1,000 ML IV ONE (20:00)
[2020-03-09] MEDS ORDERED: ONDANSETRON 4MG/2ML VIAL IV ONE (20:00)
[2020-03-09 20:04] LABS: INFLUENZA A AMPLIFICATION NEGATIVE (NEGATIVE); INFLUENZA B AMPLIFICATION NEGATIVE (NEGATIVE)
[2020-03-09 20:22] LABS: BASO % 0.3 % (0.0-1.0); EOS # 0.2 10^3/uL (0.0-0.5); EOS % 1.9 % (0.0-3.0); HEMOGLOBIN 11.3 g/dl (12.0-15.5); LYMPH # 1.8 10^3/uL (1.5-5.0); MEAN CORPUSCULAR HEMOGLOBIN 27.2 pg (27.0-33.0); MEAN CORPUSCULAR HGB CONC 29.7 g/dl (32.0-36.5); MEAN CORPUSCULAR VOLUME 91.6 fl (80.0-96.0); MONO # 0.8 10^3/uL (0.0-0.8); MONO % 10.1 % (0.0-5.0); NEUTROPHILS % 64.3 % (36.0-66.0); PLATELET COUNT, AUTOMATED 313 10^3/uL (150-450); RED BLOOD COUNT 4.15 10^6/uL (4.00-5.40); WHITE BLOOD COUNT 7.7 10^3/uL (4.0-10.0)
[2020-03-09 20:47] LABS: C REACTIVE PROTEIN QUANTITATIV 1.38 MG/DL (0.00-0.30)
[2020-03-09 20:59] LABS: ERYTHROCYTE SEDIMENTATION RATE 28 mm/hr (0-20)
[2020-03-09] MEDS ORDERED: ONDA4TAB6 PO (21:30)
[2020-03-09] MEDS ORDERED: DICY10CA13 PO (21:30)
== END 2020-03-09 22:03 | disposition home or self-care (01) ==
LOC: M ED 18:48
DX: R52 Pain, unspecified (principal); R11.2 Nausea with vomiting, unspecified; R19.7 Diarrhea, unspecified; J45.909 Unspecified asthma, uncomplicated; E78.00 Pure hypercholesterolemia, unspecified; K21.9 Gastro-esophageal reflux disease without esophagitis; F33.9 Major depressive disorder, recurrent, unspecified; F41.9 Anxiety disorder, unspecified; Z98.84 Bariatric surgery status; Z79.01 Long term (current) use of anticoagulants; Z88.5 Allergy status to narcotic agent; Z88.8 Allergy status to other drugs, medicaments and biological substances
CPT/HCPCS: 80047; 82550; 85025; 85652; 86140; 87502; 87507; 96361; 96374; 99284; J2405

== ENCOUNTER 2020-05-09 12:29 | Emergency (ER) | payer OTHER ==
[~2020-05-09] VITALS: Ht 154.9 cm; Wt 107.8 kg
[~2020-05-09 12:29] MED LIST changes: +DICY10CA13 PO; +ONDA4TAB6 PO
[2020-05-09 13:27] LABS: HEMATOCRIT 36.8 % (36.0-47.0); HEMOGLOBIN 11.3 g/dl (12.0-15.5); MEAN CORPUSCULAR HEMOGLOBIN 27.7 pg (27.0-33.0); MEAN CORPUSCULAR HGB CONC 30.7 g/dl (32.0-36.5); MEAN CORPUSCULAR VOLUME 90.2 fl (80.0-96.0); PLATELET COUNT, AUTOMATED 384 10^3/uL (150-450); RED BLOOD COUNT 4.08 10^6/uL (4.00-5.40); WHITE BLOOD COUNT 10.4 10^3/uL (4.0-10.0)
[2020-05-09 13:39] LABS: INR 0.97; PARTIAL THROMBOPLASTIN TIME 28.1 SECONDS (24.2-38.5); PROTHROMBIN TIME 13.1 SECONDS (12.5-14.3)
[2020-05-09 13:45] LABS: ATYPICAL LYMPH 2 % (0-5); EOSINOPHILS 2 % (0-3); LYMPHOCYTES 43 % (16-44); MONOCYTES 6 % (0-5); NEUTROPHILS 47 % (28-66); PLATELET ESTIMATE NORMAL (NORMAL)
[2020-05-09 13:47] LABS: D-DIMER QUANT < 270.0 ng/ml (<500)
[2020-05-09 13:55] LABS: HCG, SERUM QUALITATIVE NEGATIVE (NEGATIVE)
[2020-05-09 14:03] LABS: ALBUMIN 3.5 GM/DL (3.2-5.2); ALT/SGPT 40 U/L (12-78); BILIRUBIN,DIRECT < 0.1 MG/DL (0.0-0.2); BILIRUBIN,TOTAL 0.1 MG/DL (0.2-1.0); CK-MB VALUE MASS < 1.0 NG/ML (<3.6); CPK CREATINE PHOSPHOKINASE 88 U/L (26-192); FREE T4 0.94 NG/DL (0.76-1.46); LIPASE 138 U/L (73-393); MB/CK RELATIVE INDEX 1.14 (< OR =4); TOTAL PROTEIN 6.6 GM/DL (6.4-8.2); TROPONIN I < 0.02 NG/ML (< 0.10)
[2020-05-09] MEDS ORDERED: MAALOX 30 ML SUSP *UDC PO ONE (14:15)
--- NOTE | 2020-05-09 14:36 | REP ---
INDICATION: CHEST PAIN COMPARISON: 09/29/2019 TECHNIQUE: Portable AP view of the chest FINDINGS: The mediastinum and cardiac silhouette are stable and within normal limits for portable technique. The lung zepeda are clear without acute consolidation, effusion, or pneumothorax. Skeletal structures are intact. IMPRESSION: No acute cardiopulmonary process appreciated. <Electronically signed by Tariq Lopes > 05/09/20 1866
[2020-05-09] MEDS ORDERED: CARA1TAB6 PO (14:46)
[2020-05-09 15:23] VITALS: BP 121/69
--- NOTE | 2020-05-09 21:42 | ECGEPIP ---
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
== END 2020-05-09 15:25 | disposition home or self-care (01) ==
LOC: M ED 12:29
DX: K29.70 Gastritis, unspecified, without bleeding (principal); K21.9 Gastro-esophageal reflux disease without esophagitis; K27.9 Peptic ulcer, site unspecified, unspecified as acute or chronic, without hemorrhage or perforation; Z86.718 Personal history of other venous thrombosis and embolism; Z98.84 Bariatric surgery status; Z79.899 Other long term (current) drug therapy

== ENCOUNTER 2020-05-22 23:47 | Emergency (ER) | payer OTHER ==
[~2020-05-22] VITALS: Ht 157.5 cm; Wt 106.3 kg
[~2020-05-22 23:47] MED LIST changes: +CARA1TAB6 PO; -D 50CAP2; +D 50CAP2 PO; -ONDA-83
--- OUTSIDE RECORDS SUMMARY | 2020-05-22 23:56 | CCD ---
Author Author [facility] Organization [facility] Address Unknown Phone Unavailable Care Team Providers Care Financial Director Name Role Phone Renée Fitzgerald Unavailable PROBLEMS Type Condition ICD9-CM Code [id number] Code Onset Dates Condition S tatus SNOMED Code Notes Problem Breast cancer screening Z12.39 Active 94601362 8 Problem Iron deficiency anemia, unspecified D50.9 Acti ve 11365036 Problem GERD (gastroesophageal reflux disease) K21.9 A ctive 951019627 Problem Constipation K59.00 Active 99832762 Problem Osteoarthritis of spine with radiculopathy, lumbar region M47.26 Active 738893854 Problem Axillary mass, bilateral R22.33 Active 9235031 00 Problem Vitamin B12 deficiency E53.8 Active 401250109 Problem PUD (peptic ulcer disease) K27.9 Active 34063 003 Problem Morbid obesity due to excess calories E66.01 Ac tive 385488284 Problem Headache, common migraine G43.009 Active 721593 05 Problem Primary insomnia F51.01 Active 0831420 Problem ROYAL (obstructive sleep apnea) G47.33 Active 78 627066 Problem Mixed hyperlipidemia E78.2 Active 180559846 Problem Daytime somnolence R40.0 Active 167338890693 Problem Recurrent sinusitis J32.9 Active 259307073 Problem Recurrent deep venous thrombosis I82.409 Active 916759897 Problem Trichomoniasis A59.9 Active 31821209 Problem Spondylosis of lumbar region without myelopathy or radiculopathy M47.816 Active 85857583 Problem H/O gastric bypass Z98.89 Active 811244686 Problem Vitamin D deficiency, unspecified E55.9 Active 29420917 Problem Seasonal allergic rhinitis, unspecified trigger J3 0.2 Active 047061855 Problem Current moderate episode of major depressive disorder without prior episode F32.1 Active 40477458 Problem Alcohol abuse F10.10 Active 93311123 Problem Sciatica of right side M54.31 Active 23405895 ALLERGIES Allergen (clinical drug ingredient) Drug/Non Drug Allergy do cumented on EMR Reaction Allergy Type Onset Date Status NSAIDS Swelling Non Drug Allergy Active drugs with OD potential has taken OD x 2 (2013, 09/16) Non Drug Allergy Active gabapentin Neurontin([facility] Code:[address]-09) Hives; "drunk feeling" Drug Allergy Active duloxetine Cymbalta([facility] Code:[address]-11) Hallucinations Drug Aller gy Active Butrans Transdermal Patch Vomiting/[place] Drunk Drug Allergy Active Vioxx (for allergy use only) Hives Drug Allergy Active ibuprofen Ibuprofen([facility] Code:[address]-81) Swelling Drug Allergy Active ENCOUNTERS from 1974 to 2020-03-10 Encounter Location Date Provider Diagnosis [facility] [address] [place] [address] Mar, Mar ia Fitzgerald Hematochezia K92.1 ; Hematuria, unspecified type R31.9 ; Arthralgia, unspecified joint M25.50 ; Frequent headaches R51.9 and Epistaxis R04.0 IMMUNIZATIONS Vaccine Route Administration Date Status MMR 0.5mL SC Subcutaneous May 08, 2019 Administered MMR 0.5mL SC Subcutaneous Apr 06, 2019 Administered Influenza (6mo & up) Fluzone IM Intramuscular Mar 20, 2018 Ad ministered Influenza (6mo & up) Fluzone IM Intramuscular Mar 22, 2017 Ad ministered Influenza (6mo & up) Fluzone IM Intramuscular Apr 16, 2016 Ad ministered Influenza (6mo & up) Fluzone IM Intramuscular Mar 18, 2015 Ad ministered Pneumococcal Adult 0.5mL (Pneumovax 23) IM Intramuscular Mar 29, 2017 Administered Influenza (6mo & up) Fluzone IM Intramuscular Feb 09, 2013 Ad ministered Influenza (18 yrs & older) Flublok IM Intramuscular Feb 15, 2019 Administered Influenza (6mo & up) Fluzone IM Intramuscular Mar 20, 2012 Ad ministered Influenza (18 yrs & older) Flublok IM Intramuscular Feb 15, 2020 Administered Influenza (6mo & up) Fluzone IM Intramuscular Feb 11, 2011 Ad ministered SOCIAL HISTORY Tobacco Use: Social History Observation Description Date Details (start date - stop date) Never Smoker Sex Assigned At : Social History Observation Description Sex Assigned At Unknown Education: Question Answer Notes Level of Education: Finished College Audit Question Answer Notes Total Score: 8 Interpretation: Simple Advice Language: Question Answer Notes Languages spoken: Arabic Anabaptist: Question Answer Notes Anabaptist 13 Druze Sexual Hx: Question Answer Notes Had sex in the last 12 months (vaginal, oral, or anal)? Yes Have you ever had an STD? Yes with Men only Use protection? No GC? Yes Chlamydia? Yes Drug and Alcohol Question Answer Notes Total Score: 0 Interpretation: No problems reported Alcohol Screening: Question Answer Notes Did you have a drink containing alcohol in the past year? No Points 0 Interpretation Negative BMI Care Goal Follow-Up Question Answer Notes Above Normal BMI Follow-Up Giving encouragement to exercise Tobacco Use: Question Answer Notes Are you a: never smoker REASON FOR REFERRAL No Information VITAL SIGNS Weight 235 lbs Mar, Height 62 in Mar, BMI 42.98 kg/m2 Mar, Heart Rate 84 /min Mar, Respiratory Rate 18 /min Mar, Temperature 96.8 degrees Fahrenheit Mar, Oximetry 99 Mar, MEDICATIONS Medication SIG (Take, Route, Frequency, Duration) Start Date En d Date Status potassium Active Magnesium 500 MG 1 tablet with a meal Orally Once a day for 30 day( s) Active Ferrous Sulfate 325 (65 Fe) MG 1 tablet Orally Once a day for 30 Active Vitamin B-12 1000 MCG 1 tablet Orally Once a day OTC Active Zofran 4 mg 1 Orally four times daily as needed for 30 day(s) Active Vitamin D3 Maximum Strength 5000 UNIT 2 capsules Orally Daily for 3 0 day(s) Active Multivit-Iron orally Daily Acti ve Venlafaxine HCl 100 MG TAKE ONE TABLET BY MOUTH THREE TIMES A DAY f or 30 Active Xarelto 20 MG TAKE ONE TABLET BY MOUTH EVERY DAY for 30 Active Atorvastatin Calcium 20 MG 1 tablet Orally Once a day for 30 Active Topiramate 100 MG 1 tablet Orally Twice a day for 30 Active Orilissa 200 MG 1 tablet Orally Twice a day for 30 day(s) Oct, Active Omeprazole 40 MG TAKE ONE CAPSULE BY MOUTH TWICE A DAY for 30 Active Calcium 500 MG 1 tablet with meals Orally Twice a day Active Maxalt-MANAGER PLAN 10 MG TAKE 1 TABLET; MAY REPEAT 1 TABLET IN 2 HOURS IF NO RELIEF DAILY NEEDED for 37 Active Omeprazole 40 MG TAKE ONE CAPSULE BY MOUTH TWICE A DAY for 30 Active PROCEDURES No Information RESULTS Component Value Reference Range C REACTIVE PROTEIN QUANTITATIV (At [facility] L ab) Reviewed date:03/04/2020 07:53:04 Interpretation: Performing Lab:[facility] [address] [place] [address] , ,[place] [address] C REACTIVE PROTEIN QUANTITATIV < 0.30 0.00-0.30 ERYTHROCYTE SEDIMENTATION RATE Reviewed date:03/04/2020 07:53:04 Interpretation: Performing Lab:[facility] [address] [place] [address] , ,[place] [address] ERYTHROCYTE SEDIMENTATION RATE 17 0-20 RHEUMATOID FACTOR QUANT Reviewed date:03/04/2020 07:53:04 Interpretation: Performing Lab:[facility] [address] [facility] [id number] , ,[place] [address] RHEUMATOID FACTOR QUANT < 10.0 <15.0 URINE CULTURE Reviewed date:03/04/2020 11:58:44 Interpretation: Performing Lab:[facility] [address] [facility] [id number] , ,[place] [address] UA URINALYSIS Reviewed date:03/04/2020 07:53:04 Interpretation: Performing Lab:[facility] [address] [facility] [id number] , ,[place] [address] REASON FOR VISIT [id number] up having joint pain MEDICAL (GENERAL) HISTORY Type Description Date Medical History migraine headache, common ty pe, MRI 10/17 with punctate areas of increased signal intensity in subcortical white matter - [facility] Neuro Medical History obesity, morbid s/p laproscopic gastric bypass 08/2012-[facility] Medical History peripheral edema secondary to venous ins ufficiency Medical History PCOS with secondary DUB s/p partial hyst erectomy Medical History nonalcoholic fatty liver dis ease seen by January 2010 ultrasound Medical History hyperlipidemia 2B Medical History umbilical hernia Medical History anemia secondary to iron and B12 deficie ncy Medical History lumbar spondylosis Medical History GERD/dyspepsia-June 2009 EG D with LA Grade A reflux esophagitis and hiatal hernia/gastric ulcer by EGD 06/20130041-Aymjlmjfuf-Uqgmii Medical History Grade 1 diastolic dysfunction by May 2010 TTE-Antecol Medical History depression c h/o intentional tramadol OD 06/2013 requiring mechanical ventilation Medical History h/o bilateral pulmonary embo li involving B central PA 06/2013, - B LE DVT US-favor 2 to immobility/no hypercoag w/u done/no previous VTE - FVL, PT gene variant, protein C/S level, aCL Medical History RLE partial DVT popliteal ve in by 08/02/14 US-Xarelto [address] [facility]-07/2014 -[place], normal protein C/S/ATIII, -aCL, - HPP (for [place]) Medical History probable ROYAL Medical History excision L axillary LN-by sugey thology reactive, - for malignancy c black tattoo pigment-01/2016-[facility] Medical History 04/2016 -[facility], RF, CCP 5, CRP < 0.3/ESR 15 Medical History diverticulitis-first episode- 08/2016 CT; second 11/2017 CT Medical History intentional OD Ambien 11/10/17, admitted [facility] Medical History cervical spondylosis-C5/6 bulge s compre ssion by 10/2017 MRI Medical History alcohol abuse Surgical History BTL Surgical History C section x 2 Surgical History gastric bypass Surgical History endoscopy Surgical History IVC filter placed/removed-Michelle 11/18/2014 , Surgical History RKR-Vwnz-qhsbanga pathology Small Bowel Obstruction 12/09/14 Hospitalization History dehydration, [facility] [place] 06/2013 Hospitalization History overdose of tramadol, pulmonary embo lism 07/13 Hospitalization History [facility]-MDD c suidical netta ation/EthOH abuse (drinking 6-12 beers daily) 08/03-08/05/16 Hospitalization History EP E. coli/Salmonella coliti s, BCX 05/02 Salmonella//SBO s/o exploratory laparotomy-Jack, ABIODUN cr to 1.3 12/12- Hospitalization History diverticulitis, flare-failed outpx since 12/22 c c/m po; admission WBC 10.9, LA 2.7, - GI panel, dced on Augmentin 12/27- Hospitalization History Ambien OD - intention 11/16 Hospitalization History [place]- D dimer was high 07/2019 Goals Section No Information Health Concerns No Information MEDICAL EQUIPMENT No Information MENTAL STATUS No Information FUNCTIONAL STATUS No Information ASSESSMENTS Encounter Date Diagnosis Notes Mar, Hematochezia (ICD-10 - K92.1) Mar, Arthralgia, unspecified joint (ICD-10 - M25.50) Mar, Hematuria, unspecified type (ICD-10 - R3 1.9) Mar, Epistaxis (ICD-10 - R04.0) Mar, Frequent headaches (ICD-10 - R51.9) PLAN OF TREATMENT Treatment Notes Assessment Notes Clinical Notes Hematochezia Not currently active, refer to GI for co lonoscopy. Hematuria, unspecified type UA today, culture today. Arthralgia, unspecified joint BW to check inflammatory marke rs. Frequent headaches Pt to f/u with Neuro where she is establ ished. Epistaxis No signs of recent bleed, rec saline NS. Treatment Notes Test Name Order Date HLA-B27 2020-03-10 LYME DISEASE SCRN WITH CONFIRM 2020-03-10 CASSI TITER & PATTERN 2020-03-10 Next Appt Details BW today. Reason: Insurance Providers Payer Name Payer Address Payer Phone Insured Name Patient Relati onship to Insured Coverage Start Date Coverage End Date [facility] [address] [facility] [address] [phone] NEYDA MAYNARD self
--- OUTSIDE RECORDS SUMMARY | 2020-05-22 23:56 | CCD ---
Author Author [facility] Organization [facility] Address Unknown Phone Unavailable Care Team Providers Care Rn Resource Nurse Name Role Phone Renée Fitzgerald Unavailable PROBLEMS Type Condition ICD9-CM Code [id number] Code Onset Dates Condition S tatus SNOMED Code Notes Problem Breast cancer screening Z12.39 Active 04046905 8 Problem Iron deficiency anemia, unspecified D50.9 Acti ve 17368661 Problem GERD (gastroesophageal reflux disease) K21.9 A ctive 254518999 Problem Constipation K59.00 Active 56229991 Problem Osteoarthritis of spine with radiculopathy, lumbar region M47.26 Active 788086715 Problem Axillary mass, bilateral R22.33 Active 4794815 00 Problem Vitamin B12 deficiency E53.8 Active 324204666 Problem PUD (peptic ulcer disease) K27.9 Active 35474 003 Problem Morbid obesity due to excess calories E66.01 Ac tive 577624112 Problem Headache, common migraine G43.009 Active 308590 05 Problem Primary insomnia F51.01 Active 5449556 Problem ROYAL (obstructive sleep apnea) G47.33 Active 78 890266 Problem Mixed hyperlipidemia E78.2 Active 292585537 Problem Daytime somnolence R40.0 Active 540567138746 Problem Recurrent sinusitis J32.9 Active 369469935 Problem Recurrent deep venous thrombosis I82.409 Active 597720632 Problem Trichomoniasis A59.9 Active 06074150 Problem Spondylosis of lumbar region without myelopathy or radiculopathy M47.816 Active 29381566 Problem H/O gastric bypass Z98.89 Active 046250101 Problem Vitamin D deficiency, unspecified E55.9 Active 92856133 Problem Seasonal allergic rhinitis, unspecified trigger J3 0.2 Active 185740111 Problem Current moderate episode of major depressive disorder without prior episode F32.1 Active 79404201 Problem Alcohol abuse F10.10 Active 90296355 Problem Sciatica of right side M54.31 Active 68904633 ALLERGIES Allergen (clinical drug ingredient) Drug/Non Drug Allergy do cumented on EMR Reaction Allergy Type Onset Date Status NSAIDS Swelling Non Drug Allergy Active drugs with OD potential has taken OD x 2 (2013, 09/16) Non Drug Allergy Active gabapentin Neurontin([facility] Code:[address]-39) Hives; "drunk feeling" Drug Allergy Active duloxetine Cymbalta([facility] Code:[address]-51) Hallucinations Drug Aller gy Active Butrans Transdermal Patch Vomiting/[place] Drunk Drug Allergy Active Vioxx (for allergy use only) Hives Drug Allergy Active ibuprofen Ibuprofen([facility] Code:[address]-60) Swelling Drug Allergy Active ENCOUNTERS from 1974 to 2020-03-20 Encounter Location Date Provider Diagnosis [facility] [address] [place] [address] 13 Mar, 2020 [facility] Fitzgerald Giardiasis A07.1 IMMUNIZATIONS Vaccine Route Administration Date Status MMR [...] Advice Language: Question Answer Notes Languages spoken: Thai Mandaen: Question Answer Notes Mandaen 13 [place] Sexual Hx: Question Answer Notes Had sex [...] FOR REFERRAL No Information VITAL SIGNS Weight 233 lbs Mar, Height 62 in Mar, BMI 42.61 kg/m2 Mar, Heart Rate 78 /min Mar, Respiratory Rate 18 /min Mar, Temperature 97.3 degrees Fahrenheit Mar, Oximetry 100 Mar, Blood pressure systolic 138 mm Hg Mar, Blood pressure diastolic 86 mm Hg Mar, MEDICATIONS Medication SIG (Take, Route, Frequency, Duration) Notes Start Da te End Date Status Venlafaxine HCl 100 MG TAKE ONE TABLET BY MOUTH THREE TIMES A DAY for 30 Active Atorvastatin Calcium 20 MG 1 tablet Orally Once a day for 30 Active Tinidazole 500 MG 4 tablets with food Orally Once a day for 1 da ys Mar, Active Multivit-Iron orally Daily Active Xarelto 20 MG TAKE ONE TABLET BY MOUTH EVERY DAY for 30 Active Omeprazole 40 MG TAKE ONE CAPSULE BY MOUTH TWICE A DAY for 30 Active Magnesium 500 MG 1 tablet with a meal Orally Once a day for 30 day(s) Active Vitamin B-12 1000 MCG 1 tablet Orally Once a day OTC Active Orilissa 200 MG 1 tablet Orally Twice a day for 30 day(s) Oct, Not-Taking Omeprazole 40 MG TAKE ONE CAPSULE BY MOUTH TWICE A DAY for 30 Active Topiramate 100 MG 1 tablet Orally Twice a day for 30 Active Maxalt-LIP OF SHANK CUTTER 10 MG TAKE 1 TABLET; MAY REPEAT 1 TABLET IN 2 HOURS IF NO RELIEF DAILY NEEDED for 37 Active Zofran 4 mg 1 Orally four times daily as needed for 30 day(s) Active Calcium 500 MG 1 tablet with meals Orally Twice a day Active Ferrous Sulfate 325 (65 Fe) MG 1 tablet Orally Once a day for 30 Active potassium Active Vitamin D3 Maximum Strength 5000 UNIT 2 capsules Orally Daily for 3 0 day(s) Active PROCEDURES No Information RESULTS No Results REASON FOR VISIT [facility] ED follow up, GI panel, labs done MEDICAL (GENERAL) HISTORY Type Description Date Medical History migraine headache, common ty pe, MRI 10/17 with punctate areas of increased signal intensity in subcortical white matter - [facility] Medical History obesity, morbid s/p laproscopic gastric bypass 08/2012-[facility] Medical History peripheral edema secondary to venous [...] esophagitis and hiatal hernia/gastric ulcer by EGD 06/[id number]-Lpmmyrvunh-[facility] Medical History Grade 1 diastolic dysfunction by May 2010 TTE-Antecol Medical History depression c h/o intentional tramadol OD 06/2013 requiring mechanical ventilation Medical History h/o bilateral pulmonary embo li involving B central PA 06/2013, - B LE DVT US-favor 2 to immobility/no hypercoag w/u done/no previous VTE//04/2014 - FVL, PT gene variant, protein C/S level, aCL Medical History RLE partial DVT popliteal ve in by 08/02/14 [facility] -[place], normal protein C/S/ATIII, -aCL, - HPP (for [place]) Medical History probable ROYAL Medical History excision L axillary LN-by sugey thology reactive, - for malignancy c black tattoo pigment-01/2016-[facility] Medical History 04/2016 -[facility]uaquin, RF, CCP 5, CRP < 0.3/ESR 15 Medical History diverticulitis-first episode- 08/2016 CT; second 11/2017 CT Medical History intentional OD Ambien 11/10/17, admitted [facility] Medical History cervical spondylosis-C5/6 bulge s compre ssion by 10/2017 MRI Medical History alcohol abuse Surgical History BTL Surgical History C section x 2 Surgical History gastric bypass Surgical History endoscopy Surgical History IVC filter placed/removed-Michelle 11/18/2014 , Surgical History [facility]jzswskq pathology Small Bowel Obstruction 12/09/14 Hospitalization History dehydration, [facility] [place] 06/2013 Hospitalization History overdose of tramadol, pulmonary embo lism 07/13 Hospitalization History [facility]-MDD c suidical netta ation/EthOH abuse (drinking 6-12 beers daily) 08/03-08/05/16 Hospitalization History EP E. coli/Salmonella coliti s, BCX 05/02 Salmonella//SBO s/o exploratory laparotomy-[place], ABIODUN cr to 1.3 12/12- Hospitalization History diverticulitis, flare-failed outpx since 12/22 c c/m po; admission WBC 10.9, LA 2.7, - GI panel, dced on Augmentin 12/27- Hospitalization History Ambien OD - intention 11/16 Hospitalization History [place]- D dimer was high 07/2019 Goals Section No Information Health Concerns No Information MEDICAL EQUIPMENT No Information MENTAL STATUS No Information FUNCTIONAL STATUS No Information ASSESSMENTS Encounter Date Diagnosis Assessment Notes Treatment Notes Treatm ent Clinical Notes Mar, Giardiasis (ICD-10 - A07.1) Counseled on + GI panel, enc good hand washing, bathroom hygiene. Given persistent symptoms will treat. Counseled on risks and benefits assoc with medication. She is currently not working/ between jobs. PLAN OF TREATMENT Treatment Notes Assessment Notes Clinical Notes Giardiasis Counseled on + GI panel, enc good hand washing, bathroom hygiene. Given persistent symptoms will treat. Counseled on risks and benefits assoc with medication. She is currently not working/ between jobs. Next Appt Details prn Reason: Insurance Providers Payer Name Payer Address Payer Phone Insured Name Patient Relati onship to Insured Coverage Start Date Coverage End Date [facility] [place] [place] [address] [facility] [phone] NEYDA MAYNARD self
--- OUTSIDE RECORDS SUMMARY | 2020-05-22 23:56 | CCD ---
Author Author [facility] Organization [facility] Address Unknown Phone Unavailable Care Team Providers Care Product Inspection Coordinator Name Role Phone Renée Fitzgerald Unavailable PROBLEMS Type Condition ICD9-CM Code [id number] Code Onset Dates Condition S tatus SNOMED Code Notes Problem Breast cancer screening Z12.39 Active 61412652 8 Problem Iron deficiency anemia, unspecified D50.9 Acti ve 89007400 Problem GERD (gastroesophageal reflux disease) K21.9 A ctive 077192256 Problem Constipation K59.00 Active 94976941 Problem Osteoarthritis of spine with radiculopathy, lumbar region M47.26 Active 101662895 Problem Axillary mass, bilateral R22.33 Active 9803991 00 Problem Vitamin B12 deficiency E53.8 Active 313381763 Problem PUD (peptic ulcer disease) K27.9 Active 43485 003 Problem Morbid obesity due to excess calories E66.01 Ac tive 093987108 Problem Headache, common migraine G43.009 Active 760234 05 Problem Primary insomnia F51.01 Active 0617434 Problem ROYAL (obstructive sleep apnea) G47.33 Active 78 967601 Problem Mixed hyperlipidemia E78.2 Active 496323744 Problem Daytime somnolence R40.0 Active 809819839751 Problem Recurrent sinusitis J32.9 Active 439626119 Problem Recurrent deep venous thrombosis I82.409 Active 716441660 Problem Trichomoniasis A59.9 Active 87745021 Problem Spondylosis of lumbar region without myelopathy or radiculopathy M47.816 Active 67187916 Problem H/O gastric bypass Z98.89 Active 938334203 Problem Vitamin D deficiency, unspecified E55.9 Active 45359693 Problem Seasonal allergic rhinitis, unspecified trigger J3 0.2 Active 867002488 Problem Current moderate episode of major depressive disorder without prior episode F32.1 Active 28249382 Problem Alcohol abuse F10.10 Active 00905366 Problem Sciatica of right side M54.31 Active 32194792 ALLERGIES Allergen (clinical drug ingredient) Drug/Non Drug Allergy do cumented on EMR Reaction Allergy Type Onset Date Status NSAIDS Swelling Non Drug Allergy Active drugs with OD potential has taken OD x 2 (2013, 09/16) Non Drug Allergy Active gabapentin Neurontin([facility] [place] Code:[address]-23) Hives; "drunk feeling" Drug Allergy Active duloxetine Cymbalta([facility] [place] Code:[address]-43) Hallucinations Drug Aller gy Active Butrans Transdermal Patch Vomiting/[place] Drunk Drug Allergy Active Vioxx (for allergy use only) Hives Drug Allergy Active ibuprofen Ibuprofen([facility] [place] Code:[address]-89) Swelling Drug Allergy Active ENCOUNTERS from 1974 to 2020-03-11 Encounter Location Date Provider Diagnosis [address] [address] 09 Mar, 2020 Renée Fitzgerald IMMUNIZATIONS Vaccine Route Administration Date Status MMR [...] Advice Language: Question Answer Notes Languages spoken: Maltese Religious: Question Answer Notes Religious 13 Worship Sexual Hx: Question Answer Notes Had sex [...] REASON FOR REFERRAL No Information VITAL SIGNS No information MEDICATIONS Medication SIG (Take, Route, Frequency, Duration) [...] with meals Orally Twice a day Active Maxalt-SANDER WOODEN PENCILS 10 MG TAKE 1 TABLET; MAY REPEAT 1 TABLET IN 2 HOURS IF NO RELIEF DAILY NEEDED for 37 Active Omeprazole 40 MG TAKE ONE CAPSULE BY MOUTH TWICE A DAY for 30 Active PROCEDURES No Information RESULTS No Results REASON FOR VISIT ed visit [facility] d/c 03/09; vomitting MEDICAL (GENERAL) HISTORY Type Description Date Medical History migraine headache, common ty pe, MRI 10/17 with punctate areas of increased signal intensity in subcortical white matter - [facility] Medical History obesity, morbid s/p laproscopic gastric bypass 08/2012-[facility] Medical History peripheral edema secondary to venous [...] esophagitis and hiatal hernia/gastric ulcer by EGD 06/20138495-[facility]coqhar-[facility] Medical History Grade 1 diastolic dysfunction by [...] in by 08/02/14 US-Xarelto 15 BID by [facility] [place]-07/2014 -[place], normal protein C/S/ATIII, -aCL, - HPP (for [place]) Medical History probable ROYAL Medical History excision L axillary LN-by sugey thology reactive, - for malignancy c black tattoo pigment-01/2016-[facility] Medical History 04/2016 -[facility], RF, CCP 5, CRP < 0.3/ESR 15 Medical History diverticulitis-first episode- 08/2016 CT; second 11/2017 CT Medical History intentional OD Ambien 11/10/17, admitted [facility] Medical History cervical spondylosis-C5/6 bulge s compre ssion by 10/2017 MRI Medical History alcohol abuse Surgical History BTL Surgical History C section x 2 Surgical History gastric bypass Surgical History endoscopy Surgical History IVC filter placed/removed-Michelle 11/18/2014 , Surgical History RBL-Iujv-fccvqbkh pathology Small Bowel Obstruction 12/09/14 Hospitalization History dehydration, [facility] 06/2013 Hospitalization History overdose of tramadol, pulmonary embo lism 07/13 Hospitalization History [facility]-MDD c suidical netta ation/EthOH abuse (drinking 6-12 beers daily) 08/03-08/05/16 Hospitalization History EP E. coli/Salmonella coliti s, BCX 05/02 Salmonella//SBO s/o exploratory laparotomy-[place], ABIODUN cr to 1.3 12/12- Hospitalization History diverticulitis, flare-failed outpx since 12/22 c c/m po; admission WBC 10.9, LA 2.7, - GI panel, dced on Augmentin 12/27- Hospitalization History Ambien OD - intention 11/16 Hospitalization History [facility]- D dimer was high 07/2019 Goals Section No Information Health Concerns No Information MEDICAL EQUIPMENT No Information MENTAL STATUS No Information FUNCTIONAL STATUS No Information ASSESSMENTS No Information PLAN OF TREATMENT No Information Insurance Providers Payer Name Payer Address Payer Phone Insured Name Patient Relati onship to Insured Coverage Start Date Coverage End Date PENDING SALE TO [facility] [address] [facility] [phone] NEYDA MAYNARD self
--- OUTSIDE RECORDS SUMMARY | 2020-05-22 23:56 | CCD ---
Author Author [facility] Organization [facility] Address Unknown Phone Unavailable Care Team Providers Care Pediatric Oncologist Name Role Phone Renée Fitzgerald Unavailable PROBLEMS Type Condition ICD9-CM Code [id number] Code Onset Dates Condition S tatus SNOMED Code Notes Problem Breast cancer screening Z12.39 Active 97546303 8 Problem Iron deficiency anemia, unspecified D50.9 Acti ve 62764297 Problem GERD (gastroesophageal reflux disease) K21.9 A ctive 725086962 Problem Constipation K59.00 Active 57946248 Problem Osteoarthritis of spine with radiculopathy, lumbar region M47.26 Active 084441232 Problem Axillary mass, bilateral R22.33 Active 1641872 00 Problem Vitamin B12 deficiency E53.8 Active 719251553 Problem PUD (peptic ulcer disease) K27.9 Active 81329 003 Problem Morbid obesity due to excess calories E66.01 Ac tive 015248660 Problem Headache, common migraine G43.009 Active 246763 05 Problem Primary insomnia F51.01 Active 9470321 Problem ROYAL (obstructive sleep apnea) G47.33 Active 78 360666 Problem Mixed hyperlipidemia E78.2 Active 078221210 Problem Daytime somnolence R40.0 Active 272208332930 Problem Recurrent sinusitis J32.9 Active 194689577 Problem Recurrent deep venous thrombosis I82.409 Active 807147927 Problem Trichomoniasis A59.9 Active 23807849 Problem Spondylosis of lumbar region without myelopathy or radiculopathy M47.816 Active 74593513 Problem H/O gastric bypass Z98.89 Active 028926024 Problem Vitamin D deficiency, unspecified E55.9 Active 05491559 Problem Seasonal allergic rhinitis, unspecified trigger J3 0.2 Active 551611168 Problem Current moderate episode of major depressive disorder without prior episode F32.1 Active 65804293 Problem Alcohol abuse F10.10 Active 46625371 Problem Sciatica of right side M54.31 Active 12185913 ALLERGIES Allergen (clinical drug ingredient) Drug/Non Drug Allergy do cumented on EMR Reaction Allergy Type Onset Date Status NSAIDS Swelling Non Drug Allergy Active drugs with OD potential has taken OD x 2 (2013, 09/16) Non Drug Allergy Active gabapentin Neurontin([facility] Code:[address]-83) Hives; "drunk feeling" Drug Allergy Active duloxetine Cymbalta([facility] Code:[address]-82) Hallucinations Drug Aller gy Active Butrans Transdermal Patch Vomiting/[place] Drunk Drug Allergy Active Vioxx (for allergy use only) Hives Drug Allergy Active ibuprofen Ibuprofen([facility] Code:[address]-91) Swelling Drug Allergy Active ENCOUNTERS from 1974 to 2020-03-11 Encounter Location Date Provider Diagnosis [facility] [address] [place] [address] 10 Mar, 2020 Mar ia Fitzgerald Arthralgia, unspecified joint M25.50 and Positive CASSI (antinuclear antibody) R76.8 IMMUNIZATIONS Vaccine Route Administration Date Status MMR [...] Language: Question Answer Notes Languages spoken: Thai Judaism: Question Answer Notes Judaism 13 Religious Sexual Hx: Question Answer Notes Had sex [...] with meals Orally Twice a day Active Maxalt-DRAFTER CONSTRUCTION 10 MG TAKE 1 TABLET; MAY REPEAT 1 TABLET IN 2 HOURS IF NO RELIEF DAILY NEEDED for 37 Active Omeprazole 40 MG TAKE ONE CAPSULE BY MOUTH TWICE A DAY for 30 Active PROCEDURES No Information RESULTS No Results REASON FOR VISIT + CASSI MEDICAL (GENERAL) HISTORY Type Description Date Medical History migraine headache, common ty pe, MRI 10/17 with punctate areas of increased signal intensity in subcortical white matter - [facility] Medical History obesity, morbid s/p laproscopic gastric bypass 08/2012-[facility] Medical History peripheral edema secondary to venous [...] esophagitis and hiatal hernia/gastric ulcer by EGD 06/20134519-[facility] Medical History Grade 1 diastolic dysfunction by [...] in by 08/02/14 US-Xarelto 15 BID by [facility] [place]-07/2014 -[place], normal protein C/S/ATIII, -aCL, - HPP (for [place]) Medical History probable ROYAL Medical History excision L axillary LN-by sugey thology reactive, - for malignancy c black tattoo pigment-01/2016-[facility] Medical History 04/2016 -[facility], RF, CCP 5, CRP < 0.3/ESR 15 Medical History diverticulitis-first episode- 08/2016 CT; second 11/2017 CT Medical History intentional OD Ambien 11/10/17, admitted [facility] Medical History cervical spondylosis-C5/6 bulge s compre ssion by 10/2017 MRI Medical History alcohol abuse Surgical History BTL Surgical History C section x 2 Surgical History gastric bypass Surgical History endoscopy Surgical History IVC filter placed/removed-Michelle 11/18/2014 , Surgical History DCQ-Jvkd-wmxrcjpy pathology Small Bowel Obstruction 12/09/14 Hospitalization History dehydration, [facility] 06/2013 Hospitalization History overdose of tramadol, pulmonary embo lism 07/13 Hospitalization History [facility]-MDD c suidical netta ation/EthOH abuse (drinking -12 beers daily) 08/03-08/05/16 Hospitalization History EP E. coli/Salmonella coliti s, BCX 05/02 Salmonella//SBO s/o exploratory laparotomy-[place], ABIODUN cr to 1.3 12/12- Hospitalization History diverticulitis, flare-failed outpx since 12/22 c c/m po; admission WBC 10.9, LA 2.7, - GI panel, dced on Augmentin 12/27- Hospitalization History Ambien OD - intention 11/16 Hospitalization History [place]- D dimer was high 07/2019 Goals Section No Information Health Concerns No Information MEDICAL EQUIPMENT No Information MENTAL STATUS No Information FUNCTIONAL STATUS No Information ASSESSMENTS Encounter Date Diagnosis Notes Mar, Arthralgia, unspecified joint (ICD-10 - M25.50) Mar, Positive CASSI (antinuclear antibody) (ICD -10 - R76.8) PLAN OF TREATMENT No Information Insurance Providers Payer Name Payer Address Payer Phone Insured Name Patient Relati onship to Insured Coverage Start Date Coverage End Date [facility]AN [facility] [address] [facility] [phone] NEYDA MAYNARD self
--- OUTSIDE RECORDS SUMMARY | 2020-05-22 23:56 | CCD ---
Author Author [facility] Organization [facility] Address Unknown Phone Unavailable Care Team Providers Care Ornamental Brick Installer Name Role Phone Renée Fitzgerald Unavailable PROBLEMS Type Condition ICD9-CM Code [id number] Code Onset Dates Condition S tatus SNOMED Code Notes Problem Breast cancer screening Z12.39 Active 63951143 8 Problem Iron deficiency anemia, unspecified D50.9 Acti ve 72301619 Problem GERD (gastroesophageal reflux disease) K21.9 A ctive 711482903 Problem Constipation K59.00 Active 84016023 Problem Osteoarthritis of spine with radiculopathy, lumbar region M47.26 Active 747843482 Problem Axillary mass, bilateral R22.33 Active 6567371 00 Problem Vitamin B12 deficiency E53.8 Active 359410019 Problem PUD (peptic ulcer disease) K27.9 Active 18082 003 Problem Morbid obesity due to excess calories E66.01 Ac tive 991334344 Problem Headache, common migraine G43.009 Active 449113 05 Problem Primary insomnia F51.01 Active 7343372 Problem ROYAL (obstructive sleep apnea) G47.33 Active 78 077144 Problem Mixed hyperlipidemia E78.2 Active 597972327 Problem Daytime somnolence R40.0 Active 210400643400 Problem Recurrent sinusitis J32.9 Active 013570602 Problem Recurrent deep venous thrombosis I82.409 Active 828194792 Problem Trichomoniasis A59.9 Active 70140020 Problem Spondylosis of lumbar region without myelopathy or radiculopathy M47.816 Active 08845443 Problem H/O gastric bypass Z98.89 Active 370665281 Problem Vitamin D deficiency, unspecified E55.9 Active 11544000 Problem Seasonal allergic rhinitis, unspecified trigger J3 0.2 Active 466324164 Problem Current moderate episode of major depressive disorder without prior episode F32.1 Active 32034910 Problem Alcohol abuse F10.10 Active 66108365 Problem Sciatica of right side M54.31 Active 63276265 ALLERGIES Allergen (clinical drug ingredient) Drug/Non Drug Allergy do cumented on EMR Reaction Allergy Type Onset Date Status NSAIDS Swelling Non Drug Allergy Active drugs with OD potential has taken OD x 2 (2013, 09/16) Non Drug Allergy Active gabapentin Neurontin([facility] Code:[address]-19) Hives; "drunk feeling" Drug Allergy Active duloxetine Cymbalta([facility] Code:[address]-69) Hallucinations Drug Aller gy Active Butrans Transdermal Patch Vomiting/[place] Drunk Drug Allergy Active Vioxx (for allergy use only) Hives Drug Allergy Active ibuprofen Ibuprofen([facility] Code:[address]-60) Swelling Drug Allergy Active ENCOUNTERS from 1974 to 2020-03-20 Encounter Location Date Provider Diagnosis [facility] [address] [place] [address] Mar, [facility] Fitzgerald Giardiasis A07.1 ; Encounter for physical examination related to employment Z02.89 and Screening-pulmonary TB Z11.1 IMMUNIZATIONS Vaccine Route Administration Date Status MMR [...] Advice Language: Question Answer Notes Languages spoken: Bermudian Pentecostalism: Question Answer Notes Pentecostalism 13 Mosque Sexual Hx: Question Answer Notes Had sex [...] FOR REFERRAL No Information VITAL SIGNS Weight 243 lbs Mar, Height 62 in Mar, BMI 44.44 kg/m2 Mar, Heart Rate 82 /min Mar, Respiratory Rate 18 /min Mar, Temperature 97.3 degrees Fahrenheit Mar, Oximetry 100 Mar, Blood pressure systolic 142 mm Hg Mar, Blood pressure diastolic 78 mm Hg Mar, MEDICATIONS Medication SIG (Take, [...] Orally Twice a day for 30 Active Maxalt-WATER TREATMENT OPERATOR 10 MG TAKE 1 TABLET; MAY REPEAT [...] Daily for 3 0 day(s) Active PROCEDURES Procedure Date Ordered Result Body Site Injection: Tuberculin Purified Protein 0.1mL Intradermal (PPD) 2 020-11-17 N/A RESULTS No Results REASON FOR VISIT work physical & PPD placement MEDICAL (GENERAL) HISTORY Type Description Date Medical History migraine headache, common ty pe, MRI 10/17 with punctate areas of increased signal intensity in subcortical white matter - [facility] Medical History obesity, morbid s/p laproscopic gastric bypass 08/2012-[facility] Medical History peripheral edema secondary to venous [...] esophagitis and hiatal hernia/gastric ulcer by EGD 06/20132686-Mptyxcwidv-[facility] Medical History Grade 1 diastolic dysfunction by [...] in by 08/02/14 US-Xarelto 15 BID by [facility] [place]-07/2014 -[place], normal protein C/S/ATIII, -aCL, - HPP (for [place]) Medical History probable ROYAL Medical History excision L axillary LN-by sugey thology reactive, - for malignancy c black tattoo pigment-01/2016-[facility] Medical History 04/2016 -Juaquin, RF, CCP 5, CRP < 0.3/ESR 15 Medical History diverticulitis-first episode- 08/2016 CT; second 11/2017 CT Medical History intentional OD Ambien 11/10/17, admitted [facility] Medical History cervical spondylosis-C5/6 bulge s compre ssion by 10/2017 MRI Medical History alcohol abuse Surgical History BTL Surgical History C section x 2 Surgical History gastric bypass Surgical History endoscopy Surgical History IVC filter placed/removed-Michelle 11/18/2014 , Surgical History BPE-Roip-uuallyky pathology Small Bowel Obstruction 12/09/14 Hospitalization History dehydration, [facility] 06/2013 Hospitalization History overdose of tramadol, pulmonary embo lism 07/13 Hospitalization History [facility]-MDD c suidical netta ation/EthOH abuse (drinking 6-12 beers daily) 08/03-08/05/16 Hospitalization History EP E. coli/Salmonella coliti s, BCX 05/02 Salmonella//SBO s/o exploratory laparotomy-[facility], ABIODUN cr to 1.3 12/12- Hospitalization History diverticulitis, flare-failed outpx since 12/22 c c/m po; admission WBC 10.9, [place] 2.7, - GI panel, dced on Augmentin 12/27- Hospitalization History Ambien OD - intention 11/16 Hospitalization History [place]- D dimer was high 07/2019 Goals Section No Information Health Concerns No Information MEDICAL EQUIPMENT No Information MENTAL STATUS No Information FUNCTIONAL STATUS No Information ASSESSMENTS Encounter Date Diagnosis Assessment Notes Treatment Notes Treatm ent Clinical Notes Mar, Giardiasis (ICD-10 - A07.1) Mar, Encounter for physical exami nation related to employment (ICD-10 - Z02.89) Paperwork completed. TB placed. F/u Thur for reading of PPD. Mar, Screening-pulmonary TB (ICD-10 - Z11.1) PLAN OF TREATMENT Treatment Notes Assessment Notes Clinical Notes Encounter for physical examination related to employme nt Paperwork completed. TB placed. F/u Thur for reading of PPD. Next Appt Details prn Reason: Insurance Providers Payer Name Payer Address Payer Phone Insured Name Patient Relati onship to Insured Coverage Start Date Coverage End Date [facility] [address] [facility] [phone] NEYDA MAYNARD self
--- OUTSIDE RECORDS SUMMARY | 2020-05-22 23:57 | CCD ---
Author Author [facility] Organization [facility] Address Unknown Phone Unavailable Care Team Providers Care Shipping Team Leader Name Role Phone Renée Fitzgerald Unavailable PROBLEMS Type Condition ICD9-CM Code SLP20-FG Code Onset Dates Condition S tatus SNOMED Code Notes Problem Breast cancer screening Z12.39 Active 41775449 8 Problem Iron deficiency anemia, unspecified D50.9 Acti ve 84270133 Problem GERD (gastroesophageal reflux disease) K21.9 A ctive 646807970 Problem Constipation K59.00 Active 58127710 Problem Osteoarthritis of spine with radiculopathy, lumbar region M47.26 Active 996361645 Problem Axillary mass, bilateral R22.33 Active 3667555 00 Problem Vitamin B12 deficiency E53.8 Active 713338620 Problem PUD (peptic ulcer disease) K27.9 Active 29630 003 Problem Morbid obesity due to excess calories E66.01 Ac tive 710027323 Problem Headache, common migraine G43.009 Active 029008 05 Problem Primary insomnia F51.01 Active 6647951 Problem ROYAL (obstructive sleep apnea) G47.33 Active 78 453735 Problem Mixed hyperlipidemia E78.2 Active 968942707 Problem Daytime somnolence R40.0 Active 040413024056 Problem Recurrent sinusitis J32.9 Active 094184305 Problem Recurrent deep venous thrombosis I82.409 Active 791081287 Problem Trichomoniasis A59.9 Active 35965785 Problem Spondylosis of lumbar region without myelopathy or radiculopathy M47.816 Active 34928465 Problem H/O gastric bypass Z98.89 Active 652633545 Problem Vitamin D deficiency, unspecified E55.9 Active 16887125 Problem Seasonal allergic rhinitis, unspecified trigger J3 0.2 Active 479113070 Problem Current moderate episode of major depressive disorder without prior episode F32.1 Active 57831791 Problem Alcohol abuse F10.10 Active 54925155 Problem Sciatica of right side M54.31 Active 46388726 ALLERGIES Allergen (clinical drug ingredient) Drug/Non Drug Allergy do cumented on EMR Reaction Allergy Type Onset Date Status NSAIDS Swelling Non Drug Allergy Active drugs with OD potential has taken OD x 2 (2013, 09/16) Non Drug Allergy Active gabapentin Neurontin([facility] Code:[address]-05) Hives; "drunk feeling" Drug Allergy Active duloxetine Cymbalta([facility] Code:[address]-49) Hallucinations Drug Aller gy Active Butrans Transdermal Patch Vomiting/Morris Drunk Drug Allergy Active Vioxx (for allergy use only) Hives Drug Allergy Active ibuprofen Ibuprofen([facility] Code:[address]-22) Swelling Drug Allergy Active ENCOUNTERS from 1975 to 2020-02-23 Encounter Location Date Provider Diagnosis [address] [address] Jan, Renée Fitzgerald IMMUNIZATIONS Vaccine Route Administration Date [...] Advice Language: Question Answer Notes Languages spoken: Persian Mandaeism: Question Answer Notes Mandaeism 13 Catholic Sexual Hx: Question Answer Notes Had sex [...] Duration) Start Date En d Date Status MiraLax - 1 capful Orally Once a day as needed of constipation for 30 Days Mar, Not-Taking Cyclobenzaprine HCl 5 MG 1 tablet as needed Orally before be dtime for 10 day(s) Mar, Not-Taking MiraLax - MIX 1 CAPFUL IN LIQUID AND T YEN BY MOUTH ONCE DAILY NEEDED FOR CONSTIPATION for 30 Not-Taking Doxycycline Monohydrate 100 MG 1 capsule Orally Once a day f or 10 day(s) Mar, Not-Taking Xarelto 20 MG TAKE ONE TABLET BY MOUTH EVERY DAY for 30 Active Claritin 10 MG 1 tablet Orally Once a day for 30 day(s) Not-Taking Vitamin D3 Maximum Strength 5000 UNIT 2 capsules Orally Daily for 3 0 day(s) Active Lasix 20 MG TAKE 1 TABLET BY MOUTH NEEDED FOR EDEMA for 30 Not-Taking Ferrous Sulfate 325 (65 Fe) MG 1 tablet Orally Once a day for 30 Active Drisdol 1.25 MG (47275 UT) 1 capsule Orally weekly Not-Taking Magnesium 500 MG 1 tablet with a meal Orally Once a day for 30 day( s) Active Omeprazole 40 MG TAKE ONE CAPSULE BY MOUTH TWICE A DAY for 30 Active Maxalt-[employer]ATOR 10 MG TAKE 1 TABLET; MAY REPEAT 1 TABLET IN 2 HOURS IF NO RELIEF DAILY NEEDED for 37 Active Vitamin D3 Maximum Strength 5000 UNIT TAKE 2 CAPSULES BY MOUTH ONCE DAILY for 30 Not-Taking Atorvastatin Calcium 20 MG TAKE ONE TABLET BY MOUTH EVERY DAY for 3 0 Not-Taking Doxycycline Hyclate 100 MG 1 capsule Orally Twice a day for 14 Active Lasix 20 MG 1 tablet Orally Once a day as needed for edema for 30 day(s) Not-Taking Omeprazole 40 MG TAKE ONE CAPSULE BY MOUTH TWICE A DAY for 30 Active Atorvastatin Calcium 20 MG 1 tablet Orally Once a day for 30 Active PredniSONE 10 MG (48) as directed Orally 40mg for 3 days, 30mg for 3 days, 20mg for 3 days, then 10mg for 3 days for 12 days Mar, Not-Taking Claritin 10 MG TAKE ONE TABLET BY MOUTH EVERY DAY for 30 Not-Taking Topiramate 100 MG 1 tablet Orally Twice a day for 30 Active Albuterol Sulfate HFA 108 (90 Base) MCG/ACT 2 puffs as needed Inhalation every 6 hrs for 30 Days Mar, Not-Taking Calcium 500 MG 1 tablet with meals Orally Twice a day Active Vitamin B-12 1000 MCG 1 tablet Orally Once a day OTC Active Venlafaxine HCl 100 MG TAKE ONE TABLET BY MOUTH THREE TIMES A DAY f or 30 Active potassium Active Zofran 4 mg 1 Orally four times daily as needed for 30 day(s) Active Metronidazole 500 MG 4 tablets Orally Daily for 1 day(s) Oct, 20 Active Orilissa 200 MG 1 tablet Orally Twice a day for 30 day(s) Oct, 020 Active Multivit-Iron orally Daily Acti ve Lidoderm 5% 1-3 patches on 12 hours, off 12 hours as needed Not-Taking Lasix 40 MG 1 tablet Orally Once a day for 30 Not-Taking Rivaroxaban 20 MG 1 tablet with food Orally Once a day for 30 day(s ) Not-Taking PROCEDURES No Information RESULTS No Results REASON FOR VISIT Arm pain MEDICAL (GENERAL) HISTORY Type Description Date Medical History migraine headache, common ty pe, MRI 10/17 with punctate areas of increased signal intensity in subcortical white matter - [facility] Neuro Medical History obesity, morbid [...] esophagitis and hiatal hernia/gastric ulcer by EGD [id number]-Ovmeze Medical History Grade 1 diastolic dysfunction by [...] in by 08/02/14 US-Xarelto 15 BID by [facility]-07/2014 -[place], normal protein C/S/ATIII, -aCL, - HPP (for [place]) Medical History probable ROYAL Medical History excision L axillary LN-by sugey thology reactive, - for malignancy c black tattoo pigment-01/2016-[facility] Medical History 04/2016 -[place], RF, CCP 5, CRP < 0.3/ESR 15 Medical History diverticulitis-first episode- 08/2016 CT; second 11/2017 CT Medical History intentional OD Ambien 11/10/17, [facility] Medical History cervical spondylosis-C5/6 bulge s compre ssion by 10/2017 MRI Medical History alcohol abuse Surgical History BTL Surgical History C section x 2 Surgical History gastric bypass Surgical History endoscopy Surgical History IVC filter placed/removed-Michelle 11/18/2014 , Surgical History HZX-Byjb-suszhwye pathology Small Bowel Obstruction 12/09/14 Hospitalization History dehydration, [facility] 06/2013 Hospitalization History overdose of tramadol, pulmonary embo lism 07/13 Hospitalization History [facility] c suidical netta ation/EthOH abuse (drinking 6-12 beers daily) 08/03-08/05/16 Hospitalization History EP E. coli/Salmonella coliti s, BCX 05/02 Salmonella//SBO s/o exploratory laparotomy-[place], ABIODUN cr to 1.3 12/12- Hospitalization History diverticulitis, flare-failed outpx since 12/22 c c/m po; admission WBC 10.9, LA 2.7, - GI panel, dced on Augmentin 12/27- Hospitalization History Ambien OD - intention 11/16 Hospitalization History [facility]- D dimer was high 07/2019 Goals Section No Information Health Concerns No Information MEDICAL EQUIPMENT No Information MENTAL STATUS No Information FUNCTIONAL STATUS No Information ASSESSMENTS No Information PLAN OF TREATMENT Medication Medication Name Sig Start Date Stop Date Metronidazole 500 MG 4 tablets Orally Daily for 1 day(s) Oct, Insurance Providers Payer Name Payer Address Payer Phone Insured Name Patient Relati onship to Insured Coverage Start Date Coverage End Date [facility] [address] [facility] [id number] NEYDA MAYNARD self
--- OUTSIDE RECORDS SUMMARY | 2020-05-22 23:58 | CCD ---
Author Author [facility] Organization [facility] Address Unknown Phone Unavailable Support Name Relationship Address Phone [facility] SYLVAIN Next Of Kin [address] [place] [address] [place] [address] [place] [address] Karolina MAYNARD Next Of Kin [address] [place] [address] RCIL Next Of Kin [address] [place] [address] DISABLED Next Of Kin Unknown Unavailable UNEMPLOYED Next Of Kin - -, - - ANA MARIA PRESTON(HP) Next Of Kin [address] [place] [address] ANA MARIA PRESTON(HCP) Next Of [address] [address] SSV* Next Of Kin [address] [place] [address] [facility] Next Of [facility] [place] [address] ANA MARIA ZAPATA Next Of Kin [address] [place] [address] [facility] Next Of Kin [address] [place] [address] [employer] [place] [address] [employer] Next Of Kin [address] [place] [address] [employer] Next Of Kin [address] [place] [address] MERC Next Of Kin [address] [place] [address] FAMILY Next Of Kin [address] [place] [address] [employer] Next Of Kin [address] [place] [id number] UE Next Of Kin Unknown Unavailable EDDIE RENEE Next Of Kin [facility] [place] [phone] CASSIDY JESSICA Next Of Kin [address] [place] [address] JANNET MAYNARD Next Of Kin [address] [place] [address] SMC* Next Of Kin [address] [place] [address] Og PRESTON Next Of Kin [address] [place] [address] [facility] Next Of Kin [address] [place] [address] ANA MARIA PRESTON Next Of Kin [address] [place] [id number] ColemanAna Maria alcantar ECON [address] [place] [address] [phone] JANNET MAYNARD ECON [address] [place] [address] [phone] Care Team Providers Care Train Director Name Role Phone Gina COOL, A Luis Manuel Unavailable Gina COOL, A Luis Manuel Unavailable Gina COOL, A Luis Manuel Unavailable Gina COOL, A Luis Manuel Unavailable Gina COOL, A Luis Manuel Unavailable Gina COOL, A Luis Manuel Unavailable Gina COOL, A Luis Manuel Unavailable Gina COOL, A Luis Manuel Unavailable Gina COOL, A Luis Manuel Unavailable Gina COOL, A Luis Manuel Unavailable Gina MD, A Luis Manuel Unavailable Gina MD, A Luis Manuel Unavailable Gina MD, A Luis Manuel Unavailable Gina MD, A Luis Manuel Unavailable Gina MD, A Luis Manuel Unavailable Gina MD, A Luis Manuel Unavailable Gina MD, A Luis Manuel Unavailable Gina MD, A Luis Manuel Unavailable Gina MD, A Luis Manuel Unavailable Gina MD, A Luis Manuel Unavailable Gina MD, A Luis Manuel Unavailable Gina MD, A Luis Manuel Unavailable Gina MD, A Luis Manuel Unavailable Gina MD, A Luis Manuel Unavailable Gina MD, A Luis Manuel Unavailable Gina MD, A Luis Manuel Unavailable Gina MD, A Luis Manuel Unavailable Gina MD, A Luis Manuel Unavailable Gina MD, A Luis Manuel Unavailable Gina MD, A Luis Manuel Unavailable Gina MD, A Luis Manuel Unavailable Gina MD, A Luis Manuel Unavailable Gina MD, A Luis Manuel Unavailable Gina MD, A Luis Manuel Unavailable Gina MD, A Luis Manuel Unavailable Gina MD, A Luis Manuel Unavailable Gina MD, A Luis Manuel Unavailable Gina COOL, A Luis Manuel Unavailable Gina COOL, A Luis Manuel Unavailable Gina COOL, A Luis Manuel Unavailable Gina COOL, A Luis Manuel Unavailable Gina COOL, A Luis Manuel Unavailable Gina COOL, A Luis Manuel Unavailable Gina COOL, A Luis Manuel Unavailable TURRIN, STEFANI Unavailable Unavailable TURRIN, STEFANI Unavailable Unavailable TURRIN, STEFANI Unavailable Unavailable TURRIN, STEFANI Unavailable Unavailable Lorenzo, K Elie MD Unavailable Unavailable Lorenzo, K Elie MD Unavailable Unavailable Lorenzo, K Elie MD Unavailable Unavailable Lorenzo, K Elie MD Unavailable Unavailable Lorenzo, K Elie MD Unavailable Unavailable Lorenzo, K Elie MD Unavailable Unavailable Lorenzo, K Elie MD Unavailable Unavailable Lorenzo, K Elie MD Unavailable Unavailable Lorenzo, K Elie MD Unavailable Unavailable Lorenzo, K Elie MD Unavailable Unavailable Lorenzo, K Elie MD Unavailable Unavailable Florence Falanga, A Humaira SENIOR ADMINISTRATIVE ASSOCIATE Unavailable Unavailable Florence Falanga, A Humaira SENIOR ADMINISTRATIVE ASSOCIATE Unavailable Unavailable Florence Falanga, A Humaira SENIOR ADMINISTRATIVE ASSOCIATE Unavailable Unavailable Florence Falanga, A Humaira SENIOR ADMINISTRATIVE ASSOCIATE Unavailable Unavailable Pankaj Falanga, A Humaira SENIOR ADMINISTRATIVE ASSOCIATE Unavailable Unavailable Florence Falanga, A Humaira SENIOR ADMINISTRATIVE ASSOCIATE Unavailable Unavailable Florence Falanga, A Humaira SENIOR ADMINISTRATIVE ASSOCIATE Unavailable Unavailable Pankaj Falanga, A Humaira SENIOR ADMINISTRATIVE ASSOCIATE Unavailable Unavailable Pankaj Falanga, A Humaira SENIOR ADMINISTRATIVE ASSOCIATE Unavailable Unavailable Pankaj Falanga, A Humaira SENIOR ADMINISTRATIVE ASSOCIATE Unavailable Unavailable Florence Falanga, A Humaira SENIOR ADMINISTRATIVE ASSOCIATE Unavailable Unavailable Pankaj Falanga, A Humaira SENIOR ADMINISTRATIVE ASSOCIATE Unavailable Unavailable Florence Falanga, A Humaira SENIOR ADMINISTRATIVE ASSOCIATE Unavailable Unavailable Florence Falanga, A Humaira SENIOR ADMINISTRATIVE ASSOCIATE Unavailable Unavailable Pankaj Falanga, A Humaira SENIOR ADMINISTRATIVE ASSOCIATE Unavailable Unavailable Florence Falanga, A Humaira SENIOR ADMINISTRATIVE ASSOCIATE Unavailable Unavailable Florence Falanga, A Humaira SENIOR ADMINISTRATIVE ASSOCIATE Unavailable Unavailable Pankaj Falanga, A Humaira SENIOR ADMINISTRATIVE ASSOCIATE Unavailable Unavailable Pankaj Falanga, A Humaira SENIOR ADMINISTRATIVE ASSOCIATE Unavailable Unavailable Florence Falanga, A Humaira SENIOR ADMINISTRATIVE ASSOCIATE Unavailable Unavailable Florence Falanga, A Humaira SENIOR ADMINISTRATIVE ASSOCIATE Unavailable Unavailable Florence Falanga, A Humaira SENIOR ADMINISTRATIVE ASSOCIATE Unavailable Unavailable Pankaj Falanga, A Humaira SENIOR ADMINISTRATIVE ASSOCIATE Unavailable Unavailable Pankaj Falanga, A Humaira SENIOR ADMINISTRATIVE ASSOCIATE Unavailable Unavailable Pankaj Falanga, A Humaira SENIOR ADMINISTRATIVE ASSOCIATE Unavailable Unavailable Pankaj Falanga, A Humaira SENIOR ADMINISTRATIVE ASSOCIATE Unavailable Unavailable Florence Falanga, A Humaira SENIOR ADMINISTRATIVE ASSOCIATE Unavailable Unavailable Pankaj Falanga, A Humaira SENIOR ADMINISTRATIVE ASSOCIATE Unavailable Unavailable Florence Falanga, A Humaira SENIOR ADMINISTRATIVE ASSOCIATE Unavailable Unavailable Florence Falanga, A Humaira SENIOR ADMINISTRATIVE ASSOCIATE Unavailable Unavailable RING, K RADHA PA Unavailable Unavailable RING, K RADHA PA Unavailable Unavailable RING, K RADHA PA Unavailable Unavailable RING, K RADHA PA Unavailable Unavailable RING, K RADHA PA Unavailable Unavailable RING, K RADHA PA Unavailable Unavailable RING, K RADHA PA Unavailable Unavailable RING, K RADHA PA Unavailable Unavailable RING, K RADHA PA Unavailable Unavailable RING, K RADHA PA Unavailable Unavailable RING, K RADHA PA Unavailable Unavailable RING, K RADHA PA Unavailable Unavailable RING, K RADHA PA Unavailable Unavailable RING, K RADHA PA Unavailable Unavailable RING, K RADHA PA Unavailable Unavailable RING, K RADHA PA Unavailable Unavailable RING, K RADHA PA Unavailable Unavailable RING, K RADHA PA Unavailable Unavailable RING, K RADHA PA Unavailable Unavailable RING, K RADHA PA Unavailable Unavailable Bates, Joi HAND FRAME SURGICAL ELASTIC KNITTER Unavailable Unavailable Bates, Joi HAND FRAME SURGICAL ELASTIC KNITTER Unavailable Unavailable Bates, Joi HAND FRAME SURGICAL ELASTIC KNITTER Unavailable Unavailable Bates, Joi HAND FRAME SURGICAL ELASTIC KNITTER Unavailable Unavailable Bates, Joi HAND FRAME SURGICAL ELASTIC KNITTER Unavailable Unavailable Bates, Joi HAND FRAME SURGICAL ELASTIC KNITTER Unavailable Unavailable Bates, Joi HAND FRAME SURGICAL ELASTIC KNITTER Unavailable Unavailable Bates, Joi HAND FRAME SURGICAL ELASTIC KNITTER Unavailable Unavailable Bates, Joi HAND FRAME SURGICAL ELASTIC KNITTER Unavailable Unavailable Bates, Joi HAND FRAME SURGICAL ELASTIC KNITTER Unavailable Unavailable Bates, Joi HAND FRAME SURGICAL ELASTIC KNITTER Unavailable Unavailable Leo, Johanne Lily PA Unavailable Unavailable Leo, Johanne Lily PA Unavailable Unavailable Leo, Johanne Lily PA Unavailable Unavailable Leo, Johanne Lily PA Unavailable Unavailable Leo, Johanne Lily PA Unavailable Unavailable Leo, Johanne Lily PA Unavailable Unavailable Leo, Johanne Lily PA Unavailable Unavailable Leo, Johanne Lily PA Unavailable Unavailable Leo, Johanne Lily PA Unavailable Unavailable Leo, Johanne Lily PA Unavailable Unavailable DIAZ, D HOMERO DO Unavailable Unavailable DIAZ, D HOMERO DO Unavailable Unavailable DIAZ, D HOMERO DO Unavailable Unavailable DIAZ, D HOMERO DO Unavailable Unavailable DIAZ, D HOMERO DO Unavailable Unavailable DIAZ, D HOMERO DO Unavailable Unavailable DIAZ, D HOMERO DO Unavailable Unavailable DIAZ, D HOMERO DO Unavailable Unavailable DIAZ, D HOMERO DO Unavailable Unavailable DIAZ, D HOMERO DO Unavailable Unavailable DIAZ, D HOMERO DO Unavailable Unavailable DIAZ, D HOMERO DO Unavailable Unavailable DIAZ, D HOMERO DO Unavailable Unavailable DIAZ, D HOMERO DO Unavailable Unavailable DIAZ, D HOMERO DO Unavailable Unavailable DIAZ, D HOMERO DO Unavailable Unavailable DIAZ, D HOMERO DO Unavailable Unavailable DIAZ, D HOMERO DO Unavailable Unavailable DIAZ, D HOMERO DO Unavailable Unavailable DIAZ, D HOMERO DO Unavailable Unavailable DIAZ, D HOMERO DO Unavailable Unavailable DIAZ, D HOMERO DO Unavailable Unavailable REINALDO (FLOR), N RENÉE RPA-C Unavailable Unavailable REINALDO (FLOR), N RENÉE RPA-C Unavailable Unavailable REINALDO (FLOR), N RENÉE RPA-C Unavailable Unavailable REINALDO (FLOR), N RENÉE RPA-C Unavailable Unavailable REINALDO (FLOR), N RENÉE RPA-C Unavailable Unavailable REINALDO (FLOR), N RENÉE RPA-C Unavailable Unavailable REINALDO (FLOR), N RENÉE RPA-C Unavailable Unavailable REINALDO (FLOR), N RENÉE RPA-C Unavailable Unavailable REINALDO (FLOR), N RENÉE RPA-C Unavailable Unavailable REINALDO (FLOR), N RENÉE RPA-C Unavailable Unavailable REINALDO (FLOR), N RENÉE RPA-C Unavailable Unavailable REINALDO (FLOR), N RENÉE RPA-C Unavailable Unavailable REINALDO (FLOR), N RENÉE RPA-C Unavailable Unavailable REINALDO (FLOR), N RENÉE RPA-C Unavailable Unavailable REINALDO (FLOR), N RENÉE RPA-C Unavailable Unavailable REINALDO (FLOR), N RENÉE RPA-C Unavailable Unavailable REINALDO (FLOR), N RENÉE RPA-C Unavailable Unavailable REINALDO (FLOR), N RENÉE RPA-C Unavailable Unavailable REINALDO (FLOR), N RENÉE RPA-C Unavailable Unavailable REINALDO (FLOR), N RENÉE RPA-C Unavailable Unavailable REINALDO (FLOR), N RENÉE RPA-C Unavailable Unavailable REINALDO (FLOR), N RENÉE RPA-C Unavailable Unavailable REINALDO (FLOR), N RENÉE RPA-C Unavailable Unavailable REINALDO (FLOR), N RENÉE RPA-C Unavailable Unavailable REINALDO (FLOR), N RENÉE RPA-C Unavailable Unavailable REINALDO (FLOR), N RENÉE RPA-C Unavailable Unavailable REINALDO (FLOR), N RENÉE RPA-C Unavailable Unavailable REINALDO (FLOR), N ERNÉE RPA-C Unavailable Unavailable REINALDO (FLOR), N RENÉE RPA-C Unavailable Unavailable REINALDO (FLOR), N RENÉE RPA-C Unavailable Unavailable REINALDO (FLOR), N RENÉE RPA-C Unavailable Unavailable REINALDO (FLOR), N RENÉE RPA-C Unavailable Unavailable REINALDO (FLOR), N RENÉE RPA-C Unavailable Unavailable REINALDO (FLOR), N RENÉE RPA-C Unavailable Unavailable REINALDO (FLOR), N RENÉE RPA-C Unavailable Unavailable REINALDO (FLOR), N RENÉE RPA-C Unavailable Unavailable REINALDO (FLOR), N RENÉE RPA-C Unavailable Unavailable REINALDO (FLOR), N RENÉE RPA-C Unavailable Unavailable REINALDO (FLOR), N RENÉE RPA-C Unavailable Unavailable REINALDO (FLOR), N RENÉE RPA-C Unavailable Unavailable REINALDO (FLOR), N RENÉE RPA-C Unavailable Unavailable REINALDO (FLOR), N RENÉE RPA-C Unavailable Unavailable REINALDO (FLOR), N RENÉE RPA-C Unavailable Unavailable REINALDO (FLOR), N RENÉE RPA-C Unavailable Unavailable REINALDO (FLOR), N RENÉE RPA-C Unavailable Unavailable REINALDO (FLOR), N RENÉE RPA-C Unavailable Unavailable REINALDO (FLOR), N RENÉE RPA-C Unavailable Unavailable REINALDO (FLOR), N RENÉE RPA-C Unavailable Unavailable REINALDO (FLOR), N RENÉE RPA-C Unavailable Unavailable REINALDO (FLOR), N RENÉE RPA-C Unavailable Unavailable REINALDO (FLOR), N RENÉE RPA-C Unavailable Unavailable REINALDO (FLOR), N RENÉE RPA-C Unavailable Unavailable REINALDO (FLOR), N RENÉE RPA-C Unavailable Unavailable Re-disclosure Warning The records that you are about to access may contain information from federally-assisted alcohol or drug abuse programs. If such information is present, then the following federally mandated warning applies: This information has been disclosed to you from records protected by federal confidentiality rules (42 CFR part 2). The federal rules prohibit you from making any further disclosure of this information unless further disclosure is expressly permitted by the written consent of the person to whom it pertains or as otherwise permitted by 42 CFR part 2. A general authorization for the release of medical or other information is NOT sufficient for this purpose. The Federal rules restrict any use of the information to criminally investigate or prosecute any alcohol or drug abuse patient.The records that you are about to access may contain highly sensitive health information, the redisclosure of which is protected by Article 27-F of the [facility] Public Health law. If you continue you may have access to information: Regarding HIV / AIDS; Provided by facilities licensed or operated by the [facility] Office of Mental Health; or Provided by the [facility] Office for People With Developmental Disabilities. If such information is present, then the following [facility] mandated warning applies: This information has been disclosed to you from confidential records which are protected by state law. State law prohibits you from making any further disclosure of this information without the specific written consent of the person to whom it pertains, or as otherwise permitted by law. Any unauthorized further disclosure in violation of state law may result in a fine or intermediate sentence or both. A general authorization for the release of medical or other information is NOT sufficient authorization for further disc losure. Allergies and Adverse Reactions Type Description Substance Reaction Status Data Source(s ) Drug allergy Ibuprofen Ibuprofen Swelling Active eCW1 (Pending sale to [facility]) Drug allergy Butrans Transdermal Patch Drug allergy Vomiting/[place] On [place] Pete nk Active eCW1 ([facility]) Drug allergy Cymbalta duloxetine Hallucinations Active eCW1 ([facility]) Drug allergy Neurontin gabapentin Hives; "drunk feeling" Active eCW1 ([facility]) Drug allergy buprenorphine buprenorphine Other, not listed [facility] Drug allergy gabapentin gabapentin Other, not listed [facility] Drug allergy oxycodone oxycodone GI Upset [facility] Drug allergy NSAIDS (Non-Steroidal Anti-Inflamma NSAI DS (Non-Steroidal Anti-Inflamma Other, not listed [facility] NSAIDS NSAIDS NSAIDS Swelling Active eCW1 ([facility]) drugs with OD potential drugs with OD potential drugs with OD po tential has taken OD x 2 (2013, 09/16) Active eCW1 ([facility]) BRANDNAME BUTRANS BUTRANS confusion [facility] BRANDNAME NEURONTIN NEURONTIN confusion [facility] BRANDNAME CYMBALTA CYMBALTA AGITATION/CRAWLING THE ZURITA [facility] Drug allergy ROFECOXIB ROFECOXIB HIVES [facility] CLASS NSAID NSAID SWELLING [facility] cymbalta cymbalta duloxetine 30 MG Delayed Release Oral Capsule [Cymbalta] hallucinations Active eCW1 ([facility]) drugs with OD potential drugs with OD potential drugs with OD po tential has taken OD x 2 (09/16) Active eCW1 ([facility]) NSAIDS NSAIDS NSAIDS Swelling Active eCW1 ([facility]) vioxx vioxx vioxx Hives Active eCW1 ([facility]) gabapentin gabapentin gabapentin 50 MG/ML Oral Solution drunk feeling Active eCW1 ([facility]) cymbalta cymbalta duloxetine 30 MG Delayed Release Oral Capsule [Cymbalta] hallucinations Active eCW1 ([facility]) drugs with OD potential drugs with OD potential drugs with OD po tential has taken OD x 2 (2013, 09/16) Active eCW1 ([facility]) NSAIDS NSAIDS NSAIDS Swelling Active eCW1 ([facility]) vioxx vioxx vioxx Hives Active eCW1 ([facility]) gabapentin gabapentin gabapentin 50 MG/ML Oral Solution drunk feeling Active eCW1 ([facility]) cymbalta cymbalta duloxetine 30 MG Delayed Release Oral Capsule [Cymbalta] hallucinations Active eCW1 ([facility]) drugs with OD potential drugs with OD potential drugs with OD po tential has taken OD x 2 (2013, 09/16) Active eCW1 ([facility]) NSAIDS NSAIDS NSAIDS Swelling Active eCW1 ([facility]) vioxx vioxx vioxx Hives Active eCW1 ([facility]) gabapentin gabapentin gabapentin 50 MG/ML Oral Solution drunk feeling Active eCW1 ([facility]) vioxx vioxx vioxx Hives Active eCW1 ([facility]) NSAIDS NSAIDS NSAIDS Swelling Active eCW1 ([facility]) gabapentin gabapentin gabapentin 100 MG Oral Capsule drunk feeling A ctive eCW1 ([facility]) cymbalta cymbalta duloxetine 30 MG Delayed Release Oral Capsule [Cymbalta] hallucinations Active eCW1 ([facility]) drugs with OD potential drugs with OD potential drugs with OD po tential has taken OD x 2 (09/16) Active eCW1 ([facility]) Family History Family Member Name Family Member Gender Family Member Status Date o f Status Description Data Source(s) Unknown Unknown Problem MEDENT ([facility], ) Encounters Encounter Providers Location Date Indications Data Source(s ) [place] [address] [facility] [address] 03/18/2020 12:00:00 AM EST eCW1 ([facility]) Outpatient Attender: Luis Manuel Fuentes MD 03/17/2020 12:00:00 A M [facility] [place] [address] [facility] [address] 03/14/2020 12:00:00 AM EST eCW1 ([facility]) [place] [address] [facility] [address] 03/11/2020 12:00:00 AM EST eCW1 ([facility]) [place] [address] [facility] [address] 03/10/2020 12:00:00 AM EST [facility] Outpatient [address] [facility] [place] [address] 03/03/2020 12:00:00 AM EST [facility] Unknown [address] [facility] [place] [address] 02/21/2020 12:00:00 AM EDT eCW1 [facility] Unknown [address] [facility] [place] [address] 02/17/2020 12:00:00 AM EDT eCW1 [facility] Unknown [address] [facility] [place] [address] 02/17/2020 12:00:00 AM EDT eCW1 ([facility] Outpatient [address] [facility] [place] [address] 02/15/2020 12:00:00 AM EDT eCW1 ([facility]) Outpatient Attender: RADHA Pelaez 02/14/2020 04:00:00 PM EDT MEDENT ([facility]) Outpatient [address] [facility] [place] [address] 11/22/2019 12:00:00 AM EDT eCW1 ([facility]) Unknown [address] [facility] [place] [address] 11/15/2019 12:00:00 AM EDT eCW1 ([facility] Unknown [address] [facility] [place] [address] 10/23/2019 12:00:00 AM EDT eCW1 ([facility] Unknown [address] [facility] [place] [address] 10/19/2019 12:00:00 AM EDT eCW1 ([facility]) Outpatient Referrer: HOMERO DIAZ DO 10/10/2019 06:01:00 AM EDT [facility] Unknown [address] [facility] [place] [address] 10/08/2019 12:00:00 AM EDT [facility]CW1 ([facility]) [place] [address] [facility] [address] 10/02/2019 12:00:00 AM EDT eCW1 ([facility] [place] [address] [facility] [address] 09/27/2019 12:00:00 AM EDT eCW1 ([facility]) [facility] [place] [address] [facility] [address] 09/21/2019 12:00:00 AM EDT eCW1 [facility]) Emergency Attender: Elie Ventura MD 09/18/19 02:37:00 AM EDT - 09/18/2019 07:25:00 AM EDT RIGHT SIDE PAIN [facility] RIGHT SIDE PAIN Patient discharged. [place] [address] [facility] [address] 09/18/2019 12:00:00 AM EDT eCW1 ([facility]) [facility] [place] [address] [facility] [address] 09/18/2019 12:00:00 AM EDT eCW1 ([facility] [place] [address] [facility] [address] 08/20/2019 12:00:00 AM EDT eCW1 ([facility]) [facility] [place] [address] [facility] [address] 08/03/2019 12:00:00 AM EDT eCW1 ([facility]) Outpatient Attender: Humaira king FNPAttender: STEFANI CABALLEROConsultant: RENÉE NAJERA (FLOR) RPA-C 08/02/2019 08:59:00 PM EDT - 08/04/2019 11:52:00 AM EDT [facility] Patient discharged. [place] [address] [facility] [address] 08/02/2019 12:00:00 AM EDT [facility]CW1 ([facility] [address] [facility] [address] 07/20/2019 12:00:00 AM EDT eCW1 ([facility]) [facility] [place] [address] [facility] [address] 07/20/2019 12:00:00 AM EDT eCW1 ([facility]) Outpatient Attender: Lily franklin 07/13/2019 11:45:00 AM EDT MEDENT ([facility]) [facility] [place] [address] [place] [address], [place] [address] 07/09/2019 12:00:00 AM EDT eCW1 ([facility]) [facility] [address] [facility] [address] 07/05/2019 12:00:00 AM EST eCW1 ([facility]) [facility] [address] [place] [address], [place] [address] 07/05/2019 12:00:00 AM EST eCW1 ([facility]) [facility] [place] [address] [facility] [address] 06/28/2019 12:00:00 AM EST eCW1 ([facility] Outpatient Referrer: HOMERO DIAZ DO 06/27/2019 09:34:00 PM EST [facility] Outpatient Referrer: HOMERO DIAZ DO 06/27/2019 12:33:00 PM EST [facility] [address] [place] [address], [place] [address] 06/18/2019 12:00:00 AM EST eCW1 ([facility]) Outpatient Attender: Joi christianson 06/15/2019 01:30:00 PM EST MEDENT ([facility]) [facility] [address] [facility] [address] 06/12/2019 12:00:00 AM EST eCW1 ([facility]) [facility] [place] [address] [facility] [place] [address] 06/11/2019 12:00:00 AM EST eCW1 ([facility]) [facility] [place] [address] [facility] [place] [address] 06/08/2019 12:00:00 AM EST eCW1 ([facility]) [facility] [address] [place] [address] 06/06/2019 12:00:00 AM EST eCW1 ([facility]) [facility] [place] [address] [place] [address] Y [address] 06/04/2019 12:00:00 AM EST eCW1 ([facility]) Outpatient Referrer: HOMERO DIAZ DO 06/01/2019 03:33:00 PM EST [facility] [place] [address] [place] [address] Y [address] 05/29/2019 12:00:00 AM EST eCW1 ([facility]) Outpatient Referrer: HOMERO DIAZ DO 05/28/2019 01:54:00 PM EST [facility] Outpatient Attender: RADHA Pelaez 05/23/2019 01:30:00 PM EST MEDENT ([facility]) Outpatient Referrer: HOMERO DIAZ DO 05/08/2019 02:16:00 PM EST [facility] [place] [address] [place] [address] Y [address] 05/08/2019 12:00:00 AM EST eCW1 ([facility]) [facility] [place] [address] [place] [address] Y [address] 05/08/2019 12:00:00 AM EST eCW1 ([facility]) [facility] [place] [address] [place] [address] Y [address] 05/08/2019 12:00:00 AM EST eCW1 ([facility]) [facility] [place] [address] [place] [address], [place] [address] 05/07/2019 12:00:00 AM EST eCW1 ([facility]) [facility] [place] [address] [facility] [place] [address] 04/18/2019 12:00:00 AM EST eCW1 ([facility]) [facility] [address] [place] [address] 04/09/2019 12:00:00 AM EST eCW1 ([facility]) Outpatient Referrer: HOMERO DIAZ DO 04/08/2019 08:38:00 PM EST [facility] [address] [facility] [address] 04/06/2019 12:00:00 AM EST eCW1 ([facility]) [facility] [place] [address] [facility] [place] [address] 04/06/2019 12:00:00 AM EST eCW1 ([facility]) [facility] [place] [address] [facility] [place] [address] 04/04/2019 12:00:00 AM EST eCW1 ([facility]) [facility] [place] [address] [facility] [place] [address] 03/27/2019 12:00:00 AM EST eCW1 ([facility]) [facility] [place] [address] [place] [address], [place] [address] 03/27/2019 12:00:00 AM EST eCW1 ([facility]) Immunizations Vaccine Date Status Description Data Source(s) influenza, recombinant, quadrIvalent,injectable, prese rvative free 02/15/2020 04:54:00 PM EDT completed eCW1 ([facility]) influenza, recombinant, quadrIvalent,injectable, prese rvative free 02/15/2020 04:54:00 PM EDT completed eCW1 ([facility]) influenza, recombinant, quadrIvalent,injectable, prese rvative free 02/15/2020 04:54:00 PM EDT completed eCW1 ([facility]) influenza, recombinant, quadrIvalent,injectable, prese rvative free 02/15/2020 04:54:00 PM EDT completed eCW1 ([facility]) influenza, recombinant, quadrIvalent,injectable, prese rvative free 02/15/2020 04:54:00 PM EDT completed eCW1 ([facility]) influenza, recombinant, quadrIvalent,injectable, prese rvative free 02/15/2020 04:54:00 PM EDT completed eCW1 ([facility]) influenza, recombinant, quadrIvalent,injectable, prese rvative free 02/15/2020 04:54:00 PM EDT completed eCW1 ([facility]) influenza, recombinant, quadrIvalent,injectable, prese rvative free 02/15/2020 04:54:00 PM EDT completed eCW1 ([facility]) influenza, recombinant, quadrIvalent,injectable, prese rvative free 02/15/2020 04:54:00 PM EDT completed eCW1 ([facility]) influenza, recombinant, quadrIvalent,injectable, prese rvative free 02/15/2020 04:54:00 PM EDT completed eCW1 ([facility]) MMR 05/08/2019 01:16:00 PM EST completed e CW1 ([facility]) MMR 05/08/2019 01:16:00 PM EST completed e CW1 ([facility]) MMR 05/08/2019 01:16:00 PM EST completed e CW1 ([facility]) MMR 05/08/2019 01:16:00 PM EST completed e CW1 ([facility]) MMR 05/08/2019 01:16:00 PM EST completed e CW1 ([facility]) MMR 05/08/2019 01:16:00 PM EST completed e CW1 ([facility]) MMR 05/08/2019 01:16:00 PM EST completed e CW1 ([facility]) MMR 05/08/2019 01:16:00 PM EST completed e CW1 ([facility]) MMR 05/08/2019 01:16:00 PM EST completed e CW1 ([facility]) MMR 05/08/2019 01:16:00 PM EST completed e CW1 ([facility]) MMR 05/08/2019 01:16:00 PM EST completed e CW1 ([facility]) MMR 05/08/2019 01:16:00 PM EST completed e CW1 ([facility]) MMR 05/08/2019 01:16:00 PM EST completed e CW1 ([facility]) MMR 05/08/2019 01:16:00 PM EST completed e CW1 ([facility]) MMR 05/08/2019 01:16:00 PM EST completed e CW1 ([facility]) MMR 05/08/2019 01:16:00 PM EST completed e CW1 ([facility]) MMR 05/08/2019 01:16:00 PM EST completed e CW1 ([facility]) MMR 04/06/2019 01:59:00 PM EST completed e CW1 ([facility]) MMR 04/06/2019 01:59:00 PM EST completed e CW1 ([facility]) MMR 04/06/2019 01:59:00 PM EST completed e CW1 ([facility]) MMR 04/06/2019 01:59:00 PM EST completed e CW1 ([facility]) MMR 04/06/2019 01:59:00 PM EST completed e CW1 ([facility]) MMR 04/06/2019 01:59:00 PM EST completed e CW1 ([facility]) MMR 04/06/2019 01:59:00 PM EST completed e CW1 ([facility]) MMR 04/06/2019 01:59:00 PM EST completed e CW1 ([facility]) MMR 04/06/2019 01:59:00 PM EST completed e CW1 ([facility]) MMR 04/06/2019 01:59:00 PM EST completed e CW1 ([facility]) MMR 04/06/2019 01:59:00 PM EST completed e CW1 ([facility]) MMR 04/06/2019 01:59:00 PM EST completed e CW1 ([facility]) MMR 04/06/2019 01:59:00 PM EST completed e CW1 ([facility]) MMR 04/06/2019 01:59:00 PM EST completed e CW1 ([facility]) MMR 04/06/2019 01:59:00 PM EST completed e CW1 ([facility]) MMR 04/06/2019 01:59:00 PM EST completed e CW1 ([facility]) MMR 04/06/2019 01:59:00 PM EST completed e CW1 ([facility]) Medications Medication Brand Name Start Date Product Form Dose Route Admi nistrative Instructions Pharmacy Instructions Status Indications Reaction Description Data Source(s) 1 gram 05/09/2020 12:00:00 AM EST tablet 120 TAKE ONE TABLET BY MOUTH FOUR TIMES A DAY TAKE ONE TABLET BY MOUTH FOUR TIMES A DAY SOLD: 05/09/2020 [facility] 20 mg 05/04/2020 12:00:00 AM EST tablet 15 TAKE THREE TABLETS BY MOUTH EVERY DAY FOR 5 DAYS TAKE THREE TABLETS BY MOUTH EVERY DAY FOR 5 DAYS SOLD: 05/04/2020 [facility] 10 mg 05/04/2020 12:00:00 AM EST tablet 30 TAKE ONE TABLET BY MOUTH EVERY DAY TAKE ONE TABLET BY MOUTH EVERY DAY SOLD: 05/04/2020 [facility] 90 mcg/actuation 05/04/2020 12:00:00 AM EST HFA aerosol inha ler 8 INHALE 1 TO 2 PUFFS BY MOUTH EVERY 4 HOURS NEEDED WHEEZING INHALE 1 TO 2 PUFFS BY MOUTH EVERY 4 HOURS NEEDED WHEEZING SOLD: 05/04/2020 [facility] 875-125 mg 05/04/2020 12:00:00 AM EST tablet 20 TAKE ONE TABLET BY MOUTH TWICE A DAY FOR 10 DAYS TAKE ONE TABLET BY MOUTH TWICE A DAY FOR 10 DAYS SOLD: 05/04/2020 [facility] rizatriptan 10 MG Disintegrating Oral Tablet RIZATRIPTAN SAMANTA ZOATE 04/10/2020 12:00:00 AM EST tablet,disintegrating 9 TAKE ONE T ABLET BY MOUTH, MAY REPEAT IN 2 HOURS IF NO RELIEF NEEDED TAKE ONE TABLET BY MOUTH, MAY REPEAT IN 2 HOURS IF NO RELIEF NEEDED SOLD: 04/11/2020 [facility] 10 mg 04/10/2020 12:00:00 AM EST tablet,disintegrating 9 TAKE ONE TABLET BY MOUTH, MAY REPEAT IN 2 HOURS IF NO RELIEF NEEDED TAKE ONE TABLET BY MOUTH, MAY REPEAT IN 2 HOURS IF NO RELIEF NEEDED SOLD: 05/09/2020 [facility] Tinidazole 500 MG Oral Tablet Tinidazole 500 MG 03/14/2020 12:00:00 AM EST 4.0 {tablets_with_food} active Tinidazole 500 MG eCW1 ([facility]) Tinidazole 500 MG Oral Tablet Tinidazole 500 MG 03/14/2020 12:00:00 AM EST 4.0 {tablets_with_food} active Tinidazole 500 MG eCW1 ([facility]) 4 mg 03/10/2020 12:00:00 AM EST tablet,disintegrating 1 6 DISSOLVE ONE TABLET ON TONGUE EVERY 6 TO 8 HOURS NEEDED FOR NAUSEA AND VOMITING DISSOLVE ONE TABLET ON TONGUE EVERY 6 TO 8 HOURS NEEDED FOR NAUSEA AND VOMITING SOLD: 03/10/2020 [facility] 10 mg 03/10/2020 12:00:00 AM EST capsule 20 TAKE ONE CAPSULE BY MOUTH EVERY 6 HOURS NEEDED FOR IRRITABLE BOWEL SYMPTOMS TAKE ONE CAPSULE BY MOUTH EVERY 6 HOURS NEEDED FOR IRRITABLE BOWEL SYMPTOMS SOLD: 03/10/2020 [facility] 100 mg 02/14/2020 12:00:00 AM EDT capsule 20 TAKE ONE CAPSULE BY MOUTH TWICE A DAY FOR 10 DAYS TAKE ONE CAPSULE BY MOUTH TWICE A DAY FOR 10 DAYS SOLD : 02/14/2020 [facility] Doxycycline Monohydrate 100 MG Oral Capsule Doxycycline [place] hydrate 02/14/2020 12:00:00 AM EDT ORAL active M EDENT ([facility]) Prednisone 20 MG Oral Tablet Prednisone 02/14/2020 12:00:00 AM EDT ORAL active MEDENT ([facility]) 20 mg 02/14/2020 12:00:00 AM EDT tablet 6 TAKE ONE TABLET BY MOUTH TWICE A DAY FOR 3 DAYS TAKE ONE TABLET BY MOUTH TWICE A DAY FOR 3 DAYS SOLD: 2019 [facility] venlafaxine 100 MG Oral Tablet VENLAFAXINE HCL 01/21/2020 12:00: 00 AM EDT tablet 270 TAKE ONE TABLET BY MOUTH THREE T IMES A DAY TAKE ONE TABLET BY MOUTH THREE TIMES A DAY SOLD: 04/11/2020 [facility] venlafaxine 100 MG Oral Tablet VENLAFAXINE HCL 01/21/2020 12:00: 00 AM EDT tablet 270 TAKE ONE TABLET BY MOUTH THREE T IMES A DAY TAKE ONE TABLET BY MOUTH THREE TIMES A DAY SOLD: 01/21/2020 [facility] atorvastatin 20 MG Oral Tablet ATORVASTATIN CALCIUM 01/19/2020 1 2:00:00 AM EDT tablet 90 TAKE ONE TABLET BY MOUTH EVERY D AY TAKE ONE TABLET BY MOUTH EVERY DAY SOLD: 01/21/2020 [facility] 100 mg 01/19/2020 12:00:00 AM EDT tablet 180 TAKE ONE TABLET BY MOUTH TWICE A DAY FOR MOOD TAKE ONE TABLET BY MOUTH TWICE A DAY FOR MOOD SOLD: 04/11/2020 [facility] atorvastatin 20 MG Oral Tablet ATORVASTATIN CALCIUM 01/19/2020 1 2:00:00 AM EDT tablet 90 TAKE ONE TABLET BY MOUTH EVERY D AY TAKE ONE TABLET BY MOUTH EVERY DAY SOLD: 04/11/2020 [facility] 4 mg 01/19/2020 12:00:00 AM EDT tablet 30 TAKE ONE TABLET BY MOUTH EVERY 6 TO 8 HOURS NEEDED FOR NAUSEA TAKE ONE TABLET BY MOUTH EVERY 6 TO 8 HO URS NEEDED FOR NAUSEA SOLD: 01/21/2020 [facility] 40 mg 01/19/2020 12:00:00 AM EDT capsule,delayed release (DR/EC) 180 TAKE ONE CAPSULE BY MOUTH TWICE A DAY TAKE ONE CAPSULE BY MOUTH TWICE A DAY SOLD: 04/11/2020 [facility] 40 mg 01/19/2020 12:00:00 AM EDT capsule,delayed release (DR/EC) 180 TAKE ONE CAPSULE BY MOUTH TWICE A DAY TAKE ONE CAPSULE BY MOUTH TWICE A DAY SOLD: 01/21/2020 [facility] 10 mg 01/19/2020 12:00:00 AM EDT tablet 9 TAKE ONE TABLET BY MOUTH DIRECTED FOR HEADACHES TAKE ONE TABLET BY MOUTH DIRECTED FOR HEADACHES MIKAELA [facility] 4 mg 01/19/2020 12:00:00 AM EDT tablet 30 TAKE ONE TABLET BY MOUTH EVERY 6 TO 8 HOURS NEEDED FOR NAUSEA TAKE ONE TABLET BY MOUTH EVERY 6 TO 8 HO URS NEEDED FOR NAUSEA SOLD: 04/11/2020 [facility] 10 mg 01/19/2020 12:00:00 AM EDT tablet 9 TAKE ONE TABLET BY MOUTH DIRECTED FOR HEADACHES TAKE ONE TABLET BY MOUTH DIRECTED FOR HEADACHES MIKAELA [facility] 100 mg 01/19/2020 12:00:00 AM EDT tablet 180 TAKE ONE TABLET BY MOUTH TWICE A DAY FOR MOOD TAKE ONE TABLET BY MOUTH TWICE A DAY FOR MOOD SOLD: 01/21/2020 [facility] 20 mg 01/09/2020 12:00:00 AM EDT tablet 30 TAKE ONE TABLET BY MOUTH EVERY DAY TAKE ONE TABLET BY MOUTH EVERY DAY SOLD: 02/09/2020 [facility] 20 mg 01/09/2020 12:00:00 AM EDT tablet 30 TAKE ONE TABLET BY MOUTH EVERY DAY TAKE ONE TABLET BY MOUTH EVERY DAY SOLD: 04/11/2020 [facility] 20 mg 01/09/2020 12:00:00 AM EDT tablet 30 TAKE ONE TABLET BY MOUTH EVERY DAY TAKE ONE TABLET BY MOUTH EVERY DAY SOLD: 03/12/2020 [facility] 20 mg 01/09/2020 12:00:00 AM EDT tablet 30 TAKE ONE TABLET BY MOUTH EVERY DAY TAKE ONE TABLET BY MOUTH EVERY DAY SOLD: 01/09/2020 [facility] 20 mg 01/09/2020 12:00:00 AM EDT tablet 30 TAKE ONE TABLET BY MOUTH EVERY DAY TAKE ONE TABLET BY MOUTH EVERY DAY SOLD: 05/09/2020 [facility] Metronidazole 500 MG Oral Tablet METRONIDAZOLE 01/02/2020 12:0 0:00 AM EDT tablet 14 TAKE ONE TABLET BY MOUTH TWICE A DAY TAKE ONE TABLET BY MOUTH TWICE A DAY SOLD: 01/02/2020 [facility] venlafaxine 100 MG Oral Tablet VENLAFAXINE HCL 12/26/2019 12:00: 00 AM EDT tablet 90 TAKE ONE TABLET BY MOUTH THREE T IMES A DAY TAKE ONE TABLET BY MOUTH THREE TIMES A DAY SOLD: 12/28/2019 [facility] 10 mg 12/13/2019 12:00:00 AM EDT tablet,disintegrating 6 TAKE 1 TABLET BY MOUTH MAY REPEAT IN 2 HOURS IF NO RELIEF NEEDED TAKE 1 TABLET BY MOUTH MAY REPEAT IN 2 HOURS IF NO RELIEF NEEDED SOLD: 12/19/2019 [facility] Metronidazole 500 MG Oral Tablet METRONIDAZOLE 12/10/2019 12:0 0:00 AM EDT tablet 4 TAKE 4 TABLETS BY MOUTH SINGLE D OSE DIRECTED TAKE 4 TABLETS BY MOUTH SINGLE DOSE DIRECTED SOLD: 12/11/2019 [facility] atorvastatin 20 MG Oral Tablet ATORVASTATIN CALCIUM 12/10/2019 1 2:00:00 AM EDT tablet 30 TAKE ONE TABLET BY MOUTH EVERY D AY TAKE ONE TABLET BY MOUTH EVERY DAY SOLD: 12/11/2019 [facility] 20 mg 12/03/2019 12:00:00 AM EDT tablet 30 TAKE ONE TABLET BY MOUTH EVERY DAY TAKE ONE TABLET BY MOUTH EVERY DAY SOLD: 12/08/2019 [facility] 40 mg 11/30/2019 12:00:00 AM EDT capsule,delayed release (DR/EC) 60 TAKE ONE CAPSULE BY MOUTH TWICE A DAY TAKE ONE CAPSULE BY MOUTH TWICE A DAY SOLD: 12/03/2019 [facility] 4 mg 11/30/2019 12:00:00 AM EDT tablet 30 TAKE ONE TABLET BY MOUTH FOUR TIMES A DAY NEEDED TAKE ONE TABLET BY MOUTH FOUR TIMES A DAY NEEDED SO LD: 12/03/2019 [facility] Metronidazole 500 MG Oral Tablet Metronidazole 500 MG 2019 12:00:00 AM EDT 4.0 {tablets} active Metronidaz ole 500 MG eCW1 ([facility]) Metronidazole 500 MG Oral Tablet Metronidazole 500 MG 2019 12:00:00 AM EDT 4.0 {tablets} active Metronidaz ole 500 MG eCW1 ([facility]) Metronidazole 500 MG Oral Tablet METRONIDAZOLE 11/22/2019 12:0 0:00 AM EDT tablet 4 TAKE FOUR TABLETS BY MOUTH TAKE FOUR TABLETS BY MOUTH SO LD: 11/22/2019 [facility] Metronidazole 500 MG Oral Tablet Metronidazole 500 MG 2019 12:00:00 AM EDT 4.0 {tablets} active Metronidaz ole 500 MG eCW1 ([facility]) Metronidazole 500 MG Oral Tablet Metronidazole 500 MG 2019 12:00:00 AM EDT 4.0 {tablets} active Metronidaz ole 500 MG eCW1 ([facility]) Metronidazole 500 MG Oral Tablet Metronidazole 500 MG 2019 12:00:00 AM EDT 4.0 {tablets} active Metronidaz ole 500 MG eCW1 ([facility]) Metronidazole 500 MG Oral Tablet Metronidazole 500 MG 2019 12:00:00 AM EDT 4.0 {tablets} active Metronidaz ole 500 MG eCW1 ([facility]) 10 mg 11/17/2019 12:00:00 AM EDT tablet 30 TAKE ONE TABLET BY MOUTH EVERY DAY TAKE ONE TABLET BY MOUTH EVERY DAY SOLD: 11/20/2019 [facility] 8 mg 11/17/2019 12:00:00 AM EDT tablet 20 TAKE ONE TABLET BY MOUTH AT BEDTIME NEEDED FOR INSOMNIA TAKE ONE TABLET BY MOUTH AT BEDTIME N EEDED FOR INSOMNIA SOLD: 11/20/2019 [facility] 100 mg 11/17/2019 12:00:00 AM EDT tablet 60 TAKE TWO TABLETS BY MOUTH EVERY DAY TAKE TWO TABLETS BY MOUTH EVERY DAY SOLD: 11/20/2019 [facility] 10 mg 11/17/2019 12:00:00 AM EDT tablet,disintegrating 9 PLACE ONE TABLET UNDER THE TONGUE AT ONSET OF HEADACHE, MAY REPEAT IN TWO HOURS IF NECESSARY PLACE ONE TABLET UNDER THE TONGUE AT ONSET OF HEADACHE, MAY REPEAT IN TWO HOURS IF NECESSARY SOLD: 11/20/2019 [facility] 150 mg 11/17/2019 12:00:00 AM EDT capsule,extended releas e 24hr 60 TAKE TWO CAPSULES BY MOUTH EVERY DAY TAKE TWO CAPSULES BY MOUTH EVERY DAY SOLD: 11/20/2019 [facility] 325 mg (65 mg iron) 11/17/2019 12:00:00 AM EDT tablet 30 TAKE ONE TABLET BY MOUTH EVERY DAY TAKE ONE TABLET BY MOUTH EVERY DAY SOLD: 11/20/2019 [facility] Orilissa 200 MG [place] 200 MG 11/15/2019 12:00:00 AM EDT 1.0 { tablet} active Orilissa 200 MG eCW1 ([facility]) Or[place]issa 200 MG [place] 200 MG 11/15/2019 12:00:00 AM EDT 1.0 { tablet} active Orilissa 200 MG eCW1 ([facility]) [place] 200 MG [place] 200 MG 11/15/2019 12:00:00 AM EDT 1.0 { tablet} active Orilissa 200 MG eCW1 ([facility]) [place]issa 200 MG [place] 200 MG 11/15/2019 12:00:00 AM EDT 1.0 { tablet} active Orilissa 200 MG eCW1 ([facility]) [place] 200 MG [place] 200 MG 11/15/2019 12:00:00 AM EDT 1.0 { tablet} active Orilissa 200 MG eCW1 ([facility]) [place] 200 MG [place] 200 MG 11/15/2019 12:00:00 AM EDT 1.0 { tablet} suspended Orilissa 200 MG eCW1 ([facility]) [place]issa 200 MG [place] 200 MG 11/15/2019 12:00:00 AM EDT 1.0 { tablet} active Orilissa 200 MG eCW1 ([facility]) Orilissa 200 MG [place] 200 MG 11/15/2019 12:00:00 AM EDT 1.0 { tablet} suspended Oril[place] 200 MG eCW1 ([facility]) [place] 200 MG [place] 200 MG 11/15/2019 12:00:00 AM EDT 1.0 { tablet} active [place]il[place] 200 MG eCW1 ([facility]) [place] 200 MG [place] 200 MG 11/15/2019 12:00:00 AM EDT 1.0 { tablet} active Orilissa 200 MG eCW1 ([facility]) [place] 200 MG [place] 200 MG 11/15/2019 12:00:00 AM EDT 1.0 { tablet} active [place] 200 MG eCW1 ([facility]) [place] 200 MG [place] 200 MG 11/15/2019 12:00:00 AM EDT 1.0 { tablet} active [place] 200 MG eCW1 ([facility]) atorvastatin 20 MG Oral Tablet ATORVASTATIN CALCIUM 11/08/2019 1 2:00:00 AM EDT tablet 30 TAKE ONE TABLET BY MOUTH EVERY D AY TAKE ONE TABLET BY MOUTH EVERY DAY SOLD: 11/08/2019 [facility] 100 mg 10/22/2019 12:00:00 AM EDT capsule 28 TAKE ONE CAPSULE BY MOUTH TWICE A DAY FOR 14 DAYS TAKE ONE CAPSULE BY MOUTH TWICE A DAY FOR 14 DAYS SOLD : 11/08/2019 [facility] 100 mg 10/22/2019 12:00:00 AM EDT capsule 28 TAKE ONE CAPSULE BY MOUTH TWICE A DAY FOR 14 DAYS TAKE ONE CAPSULE BY MOUTH TWICE A DAY FOR 14 DAYS SOLD : 10/22/2019 [facility] 100 mg 10/19/2019 12:00:00 AM EDT tablet 60 TAKE TWO TABLETS BY MOUTH EVERY DAY TAKE TWO TABLETS BY MOUTH EVERY DAY SOLD: 10/20/2019 [facility] 2 mg 10/19/2019 12:00:00 AM EDT tablet 30 TAKE ONE TABLET BY MOUTH AT BEDTIME TAKE ONE TABLET BY MOUTH AT BEDTIME SOLD: 10/20/2019 [facility] 5 mg 10/19/2019 12:00:00 AM EDT tablet 30 TAKE ONE TABLET BY MOUTH AT BEDTIME WITH 2MG TABLET TAKE ONE TABLET BY MOUTH AT BEDTIME WITH 2MG TABLET SOLD: 10/20/2019 [facility] 10 mg 10/15/2019 12:00:00 AM EDT tablet,disintegrating 9 PLACE ONE TABLET UNDER THE TONGUE AT ONSET OF HEADACHE, MAY REPEAT IN TWO HOURS IF NECESSARY PLACE ONE TABLET UNDER THE TONGUE AT ONSET OF HEADACHE, MAY REPEAT IN TWO HOURS IF NECESSARY SOLD: 10/18/2019 [facility] 2 mg 09/29/2019 12:00:00 AM EDT tablet 60 TAKE TWO TABLETS BY MOUTH AT BEDTIME TAKE TWO TABLETS BY MOUTH AT BEDTIME SOLD: 10/01/2019 [facility] 150 mg 09/29/2019 12:00:00 AM EDT capsule,extended releas e 24hr 60 TAKE 2 CAPSULES BY MOUTH ONCE A DAY TAKE 2 CAPSULES BY MOUTH ONCE A DAY SOLD: 10/01/2019 [facility] 40 mg 09/18/2019 12:00:00 AM EDT tablet 30 TAKE ONE TABLET BY MOUTH EVERY DAY TAKE ONE TABLET BY MOUTH EVERY DAY SOLD: 11/08/2019 [facility] 40 mg 09/18/2019 12:00:00 AM EDT tablet 30 TAKE ONE TABLET BY MOUTH EVERY DAY TAKE ONE TABLET BY MOUTH EVERY DAY SOLD: 10/04/2019 [facility] venlafaxine 100 MG Oral Tablet VENLAFAXINE HCL 09/18/2019 12:00: 00 AM EDT tablet 90 TAKE ONE TABLET BY MOUTH THREE T IMES A DAY TAKE ONE TABLET BY MOUTH THREE TIMES A DAY SOLD: 11/08/2019 [facility] 100 mg 09/18/2019 12:00:00 AM EDT tablet 60 TAKE ONE TABLET BY MOUTH TWICE A DAY TAKE ONE TABLET BY MOUTH TWICE A DAY SOLD: 09/21/2019 [facility] venlafaxine 100 MG Oral Tablet VENLAFAXINE HCL 09/18/2019 12:00: 00 AM EDT tablet 90 TAKE ONE TABLET BY MOUTH THREE T IMES A DAY TAKE ONE TABLET BY MOUTH THREE TIMES A DAY SOLD: 09/21/2019 [facility] venlafaxine 100 MG Oral Tablet VENLAFAXINE HCL 09/18/2019 12:00: 00 AM EDT tablet 90 TAKE ONE TABLET BY MOUTH THREE T IMES A DAY TAKE ONE TABLET BY MOUTH THREE TIMES A DAY SOLD: 10/04/2019 [facility] venlafaxine 100 MG Oral Tablet VENLAFAXINE HCL 09/18/2019 12:00: 00 AM EDT tablet 90 TAKE ONE TABLET BY MOUTH THREE T IMES A DAY TAKE ONE TABLET BY MOUTH THREE TIMES A DAY SOLD: 10/18/2019 [facility] 100 mg 09/17/2019 12:00:00 AM EDT capsule 28 TAKE ONE CAPSULE BY MOUTH TWICE A DAY TAKE ONE CAPSULE BY MOUTH TWICE A DAY SOLD: 09/21/2019 [facility] 40 mg 09/17/2019 12:00:00 AM EDT tablet 30 TAKE ONE TABLET BY MOUTH EVERY DAY TAKE ONE TABLET BY MOUTH EVERY DAY SOLD: 09/21/2019 [facility] 10 mg 09/17/2019 12:00:00 AM EDT tablet 30 TAKE ONE TABLET BY MOUTH EVERY DAY TAKE ONE TABLET BY MOUTH EVERY DAY SOLD: 09/21/2019 [facility] 40 mg 09/17/2019 12:00:00 AM EDT tablet 30 TAKE ONE TABLET BY MOUTH EVERY DAY TAKE ONE TABLET BY MOUTH EVERY DAY SOLD: 10/20/2019 [facility] 100 mg 09/17/2019 12:00:00 AM EDT capsule 28 TAKE ONE CAPSULE BY MOUTH TWICE A DAY TAKE ONE CAPSULE BY MOUTH TWICE A DAY SOLD: 10/11/2019 [facility] 10 mg 09/17/2019 12:00:00 AM EDT tablet 30 TAKE ONE TABLET BY MOUTH EVERY DAY TAKE ONE TABLET BY MOUTH EVERY DAY SOLD: 10/18/2019 [facility] 100 mg 09/06/2019 12:00:00 AM EDT capsule 28 TAKE ONE CAPSULE BY MOUTH TWICE A DAY TAKE ONE CAPSULE BY MOUTH TWICE A DAY SOLD: 10/01/2019 [facility] 100 mg 09/06/2019 12:00:00 AM EDT capsule 28 TAKE ONE CAPSULE BY MOUTH TWICE A DAY TAKE ONE CAPSULE BY MOUTH TWICE A DAY SOLD: 09/14/2019 [facility] 10 mg 08/24/2019 12:00:00 AM EDT tablet,disintegrating 7 TAKE 1 TABLET BY MOUTH MAY REPEAT IN 2 HOURS IF NO RELIEF NEEDED TAKE 1 TABLET BY MOUTH MAY REPEAT IN 2 HOURS IF NO RELIEF NEEDED SOLD: 08/27/2019 [facility] 10 mg 08/24/2019 12:00:00 AM EDT tablet,disintegrating 7 TAKE 1 TABLET BY MOUTH MAY REPEAT IN 2 HOURS IF NO RELIEF NEEDED TAKE 1 TABLET BY MOUTH MAY REPEAT IN 2 HOURS IF NO RELIEF NEEDED SOLD: 09/21/2019 [facility] 40 mg 08/23/2019 12:00:00 AM EDT capsule,delayed release (DR/EC) 60 TAKE ONE CAPSULE BY MOUTH TWICE A DAY TAKE ONE CAPSULE BY MOUTH TWICE A DAY SOLD: 10/31/2019 [facility] 17 gram/dose 08/23/2019 12:00:00 AM EDT powder 510 MIX 1 CAPFUL IN LIQUID AND TAKE BY MOUTH ONCE DAILY NEEDED FOR CONSTIPATION MIX 1 CAPFUL IN LIQUID AND TAKE BY MOUTH ONCE DAILY NEEDED FOR CONSTIPATION SOLD: 10/31/2019 [facility] 40 mg 08/23/2019 12:00:00 AM EDT capsule,delayed release (DR/EC) 60 TAKE ONE CAPSULE BY MOUTH TWICE A DAY TAKE ONE CAPSULE BY MOUTH TWICE A DAY SOLD: 10/01/2019 [facility] 17 gram/dose 08/23/2019 12:00:00 AM EDT powder 510 MIX 1 CAPFUL IN LIQUID AND TAKE BY MOUTH ONCE DAILY NEEDED FOR CONSTIPATION MIX 1 CAPFUL IN LIQUID AND TAKE BY MOUTH ONCE DAILY NEEDED FOR CONSTIPATION SOLD: 08/27/2019 [facility] 17 gram/dose 08/23/2019 12:00:00 AM EDT powder 510 MIX 1 CAPFUL IN LIQUID AND TAKE BY MOUTH ONCE DAILY NEEDED FOR CONSTIPATION MIX 1 CAPFUL IN LIQUID AND TAKE BY MOUTH ONCE DAILY NEEDED FOR CONSTIPATION SOLD: 10/01/2019 [facility] 40 mg 08/23/2019 12:00:00 AM EDT capsule,delayed release (DR/EC) 60 TAKE ONE CAPSULE BY MOUTH TWICE A DAY TAKE ONE CAPSULE BY MOUTH TWICE A DAY SOLD: 08/27/2019 [facility] 325 mg (65 mg iron) 08/21/2019 12:00:00 AM EDT tablet 30 TAKE ONE TABLET BY MOUTH EVERY DAY TAKE ONE TABLET BY MOUTH EVERY DAY SOLD: 10/18/2019 [facility] 325 mg (65 mg iron) 08/21/2019 12:00:00 AM EDT tablet 30 TAKE ONE TABLET BY MOUTH EVERY DAY TAKE ONE TABLET BY MOUTH EVERY DAY SOLD: 08/22/2019 [facility] 325 mg (65 mg iron) 08/21/2019 12:00:00 AM EDT tablet 30 TAKE ONE TABLET BY MOUTH EVERY DAY TAKE ONE TABLET BY MOUTH EVERY DAY SOLD: 09/21/2019 [facility] 100 mg 08/17/2019 12:00:00 AM EDT capsule 28 TAKE ONE CAPSULE BY MOUTH TWICE A DAY TAKE ONE CAPSULE BY MOUTH TWICE A DAY SOLD: 09/03/2019 [facility] 100 mg 08/17/2019 12:00:00 AM EDT capsule 28 TAKE ONE CAPSULE BY MOUTH TWICE A DAY TAKE ONE CAPSULE BY MOUTH TWICE A DAY SOLD: 08/20/2019 [facility] 100 mg 08/16/2019 12:00:00 AM EDT capsule 28 TAKE ONE CAPSULE BY MOUTH TWICE A DAY FOR 14 DAYS TAKE ONE CAPSULE BY MOUTH TWICE A DAY FOR 14 DAYS SOLD : 08/16/2019 [facility] 100 mg 08/16/2019 12:00:00 AM EDT capsule 28 TAKE ONE CAPSULE BY MOUTH TWICE A DAY FOR 14 DAYS TAKE ONE CAPSULE BY MOUTH TWICE A DAY FOR 14 DAYS SOLD : 08/27/2019 [facility] 2 mg 08/15/2019 12:00:00 AM EDT tablet 42 TAKE 1 TABLET BY MOUTH AT BEDTIME FOR 2 WEEKS THEN 2 TABLETS AT BEDTIME TAKE 1 TABLET BY MOUTH AT BEDTIME FOR 2 WEEKS THEN 2 TABLETS AT BEDTIME SOLD: 08/16/2019 [facility] 100 mg 08/14/2019 12:00:00 AM EDT tablet 60 TAKE TWO TABLETS BY MOUTH EVERY DAY TAKE TWO TABLETS BY MOUTH EVERY DAY SOLD: 08/16/2019 [facility] 20 mg 07/27/2019 12:00:00 AM EDT tablet 30 TAKE ONE TABLET BY MOUTH EVERY DAY TAKE ONE TABLET BY MOUTH EVERY DAY SOLD: 08/27/2019 [facility] 20 mg 07/27/2019 12:00:00 AM EDT tablet 30 TAKE ONE TABLET BY MOUTH EVERY DAY TAKE ONE TABLET BY MOUTH EVERY DAY SOLD: 07/28/2019 [facility] 20 mg 07/27/2019 12:00:00 AM EDT tablet 30 TAKE ONE TABLET BY MOUTH EVERY DAY TAKE ONE TABLET BY MOUTH EVERY DAY SOLD: 10/01/2019 [facility] 20 mg 07/27/2019 12:00:00 AM EDT tablet 30 TAKE ONE TABLET BY MOUTH EVERY DAY TAKE ONE TABLET BY MOUTH EVERY DAY SOLD: 10/31/2019 [facility] 100 mg 07/24/2019 12:00:00 AM EDT capsule 28 TAKE ONE CAPSULE BY MOUTH TWICE A DAY FOR 14 DAYS TAKE ONE CAPSULE BY MOUTH TWICE A DAY FOR 14 DAYS SOLD : 08/06/2019 [facility] 100 mg 07/24/2019 12:00:00 AM EDT capsule 28 TAKE ONE CAPSULE BY MOUTH TWICE A DAY FOR 14 DAYS TAKE ONE CAPSULE BY MOUTH TWICE A DAY FOR 14 DAYS SOLD : 07/25/2019 [facility] 100 mg 06/24/2019 12:00:00 AM EST capsule 28 TAKE ONE CAPSULE BY MOUTH TWICE A DAY TAKE ONE CAPSULE BY MOUTH TWICE A DAY SOLD: 06/24/2019 [facility] 100 mg 06/24/2019 12:00:00 AM EST capsule 28 TAKE ONE CAPSULE BY MOUTH TWICE A DAY TAKE ONE CAPSULE BY MOUTH TWICE A DAY SOLD: 07/11/2019 [facility] 20 mg 06/15/2019 12:00:00 AM EST tablet 20 TAKE 3 TABLETS BY MOUTH DAYS 1 THRU 3 THEN 2 TABLETS DAYS 4 THRU 7 THEN 1 TABLET DAYS 8 THRU 10 DIRECTED TAKE 3 TABLETS BY MOUTH DAYS 1 THRU 3 THEN 2 TABLETS DAYS 4 THRU 7 THEN 1 TABLET DAYS 8 THRU 10 DIRECTED SOLD: 06/16/2019 [facility] 200-300 mg 06/03/2019 12:00:00 AM EST tablet 21 TAKE ONE TABLET BY MOUTH EVERY DAY TAKE ONE TABLET BY MOUTH EVERY DAY SOLD: 06/03/2019 [facility] 400 mg 06/03/2019 12:00:00 AM EST tablet 42 TAKE ONE TABLET BY MOUTH TWICE A DAY TAKE ONE TABLET BY MOUTH TWICE A DAY SOLD: 06/03/2019 [facility] 100 mg 05/29/2019 12:00:00 AM EST tablet 60 TAKE ONE TABLET BY MOUTH TWICE A DAY TAKE ONE TABLET BY MOUTH TWICE A DAY SOLD: 07/25/2019 [facility] 100 mg 05/29/2019 12:00:00 AM EST tablet 60 TAKE ONE TABLET BY MOUTH TWICE A DAY TAKE ONE TABLET BY MOUTH TWICE A DAY SOLD: 06/27/2019 [facility] 100 mg 05/29/2019 12:00:00 AM EST capsule 28 TAKE ONE CAPSULE BY MOUTH TWICE A DAY FOR 14 DAYS TAKE ONE CAPSULE BY MOUTH TWICE A DAY FOR 14 DAYS SOLD : 05/29/2019 [facility] doxycycline hyclate 100 MG Oral Capsule Doxycycline Hy clate 100 MG Doxycycline Hyclate 100 MG 05/29/2019 12:00:00 AM EST active 1 capsule eCW1 ([facility]) 40 mg 05/29/2019 12:00:00 AM EST tablet 30 TAKE ONE TABLET BY MOUTH ONCE A DAY TAKE ONE TABLET BY MOUTH ONCE A DAY SOLD: 08/22/2019 [facility] doxycycline hyclate 100 MG Oral Capsule Doxycycline Hy clate 100 MG Doxycycline Hyclate 100 MG 05/29/2019 12:00:00 AM EST active 1 capsule eCW1 ([facility]) 100 mg 05/29/2019 12:00:00 AM EST tablet 60 TAKE ONE TABLET BY MOUTH TWICE A DAY TAKE ONE TABLET BY MOUTH TWICE A DAY SOLD: 08/22/2019 [facility] 40 mg 05/29/2019 12:00:00 AM EST tablet 30 TAKE ONE TABLET BY MOUTH ONCE A DAY TAKE ONE TABLET BY MOUTH ONCE A DAY SOLD: 05/31/2019 [facility] 100 mg 05/29/2019 12:00:00 AM EST capsule 28 TAKE ONE CAPSULE BY MOUTH TWICE A DAY FOR 14 DAYS TAKE ONE CAPSULE BY MOUTH TWICE A DAY FOR 14 DAYS SOLD : 06/14/2019 [facility] 40 mg 05/29/2019 12:00:00 AM EST tablet 30 TAKE ONE TABLET BY MOUTH ONCE A DAY TAKE ONE TABLET BY MOUTH ONCE A DAY SOLD: 07/25/2019 [facility] 40 mg 05/29/2019 12:00:00 AM EST tablet 30 TAKE ONE TABLET BY MOUTH ONCE A DAY TAKE ONE TABLET BY MOUTH ONCE A DAY SOLD: 06/27/2019 [facility] 100 mg 05/29/2019 12:00:00 AM EST tablet 60 TAKE ONE TABLET BY MOUTH TWICE A DAY TAKE ONE TABLET BY MOUTH TWICE A DAY SOLD: 05/31/2019 [facility] venlafaxine 100 MG Oral Tablet VENLAFAXINE HCL 05/29/2019 12:00: 00 AM EST tablet 90 TAKE ONE TABLET BY MOUTH THREE T IMES A DAY TAKE ONE TABLET BY MOUTH THREE TIMES A DAY SOLD: 05/31/2019 [facility] venlafaxine 100 MG Oral Tablet VENLAFAXINE HCL 05/29/2019 12:00: 00 AM EST tablet 90 TAKE ONE TABLET BY MOUTH THREE T IMES A DAY TAKE ONE TABLET BY MOUTH THREE TIMES A DAY SOLD: 08/22/2019 [facility] venlafaxine 100 MG Oral Tablet VENLAFAXINE HCL 05/29/2019 12:00: 00 AM EST tablet 90 TAKE ONE TABLET BY MOUTH THREE T IMES A DAY TAKE ONE TABLET BY MOUTH THREE TIMES A DAY SOLD: 06/27/2019 [facility] venlafaxine 100 MG Oral Tablet VENLAFAXINE HCL 05/29/2019 12:00: 00 AM EST tablet 90 TAKE ONE TABLET BY MOUTH THREE T IMES A DAY TAKE ONE TABLET BY MOUTH THREE TIMES A DAY SOLD: 07/25/2019 [facility] 50 mcg/actuation 05/24/2019 12:00:00 AM EST spray,suspension 16 SPRAY 2 SPRAYS IN EACH NOSTRIL ONCE A DAY SPRAY 2 SPRAYS IN EACH NOSTRIL ONCE A DAY SOLD: 05/25/2019 [facility] 50 mcg/actuation 05/24/2019 12:00:00 AM EST spray,suspension 16 SPRAY 2 SPRAYS IN EACH NOSTRIL ONCE A DAY SPRAY 2 SPRAYS IN EACH NOSTRIL ONCE A DAY SOLD: 06/24/2019 [facility] 750 mg 05/23/2019 12:00:00 AM EST tablet 5 TAKE ONE TABLET BY MOUTH ONCE A DAY FOR 5 DAYS TAKE ONE TABLET BY MOUTH ONCE A DAY FOR 5 DAYS SOLD: 020 [facility] atorvastatin 20 MG Oral Tablet ATORVASTATIN CALCIUM 05/23/2019 1 2:00:00 AM EST tablet 30 TAKE ONE TABLET BY MOUTH EVERY D AY TAKE ONE TABLET BY MOUTH EVERY DAY SOLD: 07/20/2019 [facility] atorvastatin 20 MG Oral Tablet ATORVASTATIN CALCIUM 05/23/2019 1 2:00:00 AM EST tablet 30 TAKE ONE TABLET BY MOUTH EVERY D AY TAKE ONE TABLET BY MOUTH EVERY DAY SOLD: 09/14/2019 [facility] 90 mcg/actuation 05/23/2019 12:00:00 AM EST HFA aerosol inha ler 18 INHALE TWO PUFFS BY MOUTH EVERY 4 TO 6 HOURS NEEDED FOR WHEEZE AND COUGH INHALE TWO PUFFS BY MOUTH EVERY 4 TO 6 HOURS NEEDED FOR WHEEZE AND COUGH SOLD: 05/23/2019 [facility] atorvastatin 20 MG Oral Tablet ATORVASTATIN CALCIUM 05/23/2019 1 2:00:00 AM EST tablet 30 TAKE ONE TABLET BY MOUTH EVERY D AY TAKE ONE TABLET BY MOUTH EVERY DAY SOLD: 08/16/2019 [facility] atorvastatin 20 MG Oral Tablet ATORVASTATIN CALCIUM 05/23/2019 1 2:00:00 AM EST tablet 30 TAKE ONE TABLET BY MOUTH EVERY D AY TAKE ONE TABLET BY MOUTH EVERY DAY SOLD: 05/25/2019 [facility] Fluticasone Propionate Fluticasone Propionate 05/23/2019 12:00:[address] active [facility] ([facility]) atorvastatin 20 MG Oral Tablet ATORVASTATIN CALCIUM 05/23/2019 1 2:00:00 AM EST tablet 30 TAKE ONE TABLET BY MOUTH EVERY D AY TAKE ONE TABLET BY MOUTH EVERY DAY SOLD: 06/24/2019 [facility] atorvastatin 20 MG Oral Tablet ATORVASTATIN CALCIUM 05/23/2019 1 2:00:00 AM EST tablet 30 TAKE ONE TABLET BY MOUTH EVERY D AY TAKE ONE TABLET BY MOUTH EVERY DAY SOLD: 10/11/2019 [facility] 200 ACTUAT Albuterol 0.09 MG/ACTUAT Metered Dose Inhaler [Pr oAir] Proair HFA 05/23/2019 12:00:00 AM EST ORAL completed [facility] ([facility]) Levofloxacin 750 MG Oral Tablet Levofloxacin 05/23/2019 12:00:[address] ORAL completed [facility] ([facility]) 40 mg 05/08/2019 12:00:00 AM EST capsule,delayed release (DR/EC) 60 TAKE ONE CAPSULE BY MOUTH TWICE A DAY TAKE ONE CAPSULE BY MOUTH TWICE A DAY SOLD: 05/09/2019 [facility] 40 mg 05/08/2019 12:00:00 AM EST capsule,delayed release (DR/EC) 60 TAKE ONE CAPSULE BY MOUTH TWICE A DAY TAKE ONE CAPSULE BY MOUTH TWICE A DAY SOLD: 06/08/2019 [facility] 40 mg 05/08/2019 12:00:00 AM EST capsule,delayed release (DR/EC) 60 TAKE ONE CAPSULE BY MOUTH TWICE A DAY TAKE ONE CAPSULE BY MOUTH TWICE A DAY SOLD: 07/06/2019 [facility] 40 mg 05/08/2019 12:00:00 AM EST capsule,delayed release (DR/EC) 60 TAKE ONE CAPSULE BY MOUTH TWICE A DAY TAKE ONE CAPSULE BY MOUTH TWICE A DAY SOLD: 07/28/2019 [facility] 25 mg 04/18/2019 12:00:00 AM EST tablet 20 TAKE ONE TABLET BY MOUTH EVERY 6 HOURS NEEDED FOR NAUSEA AND VOMITING TAKE ONE TABLET BY MOUTH EVERY 6 HOURS NEEDED FOR NAUSEA AND VOMITING SOLD: 04/20/2019 [facility] 20 mg 04/06/2019 12:00:00 AM EST tablet 30 TAKE ONE TABLET BY MOUTH EVERY DAY TAKE ONE TABLET BY MOUTH EVERY DAY SOLD: 06/02/2019 [facility] 150 mg 04/06/2019 12:00:00 AM EST tablet 1 TAKE 1 TABLET BY MOUTH FOR FUNGAL INFECTION TAKE 1 TABLET BY MOUTH FOR FUNGAL INFECTION SOLD: 04/06/2019 [facility] 20 mg 04/06/2019 12:00:00 AM EST tablet 30 TAKE ONE TABLET BY MOUTH EVERY DAY TAKE ONE TABLET BY MOUTH EVERY DAY SOLD: 07/01/2019 [facility] 500 mg 04/06/2019 12:00:00 AM EST tablet 14 TAKE ONE TABLET BY MOUTH TWICE A DAY FOR 7 DAYS TAKE ONE TABLET BY MOUTH TWICE A DAY FOR 7 DAYS SOLD: 04/06/2019 [facility] 20 mg 04/06/2019 12:00:00 AM EST tablet 30 TAKE ONE TABLET BY MOUTH EVERY DAY TAKE ONE TABLET BY MOUTH EVERY DAY SOLD: 05/06/2019 [facility] 20 mg 04/06/2019 12:00:00 AM EST tablet 30 TAKE ONE TABLET BY MOUTH EVERY DAY TAKE ONE TABLET BY MOUTH EVERY DAY SOLD: 04/06/2019 [facility] rivaroxaban 20 MG Oral Tablet [Xarelto] Xarelto 20 MG Xarelt o 20 MG 04/05/2019 12:00:00 AM EST active TAKE ONE TABLET BY MOUTH EVERY DAY [facility] ([facility]) rivaroxaban 20 MG Oral Tablet [Xarelto] Xarelto 20 MG Xarelt o 20 MG 04/05/2019 12:00:00 AM EST active TAKE ONE TABLET BY MOUTH EVERY DAY [facility] ([facility]) rivaroxaban 20 MG Oral Tablet [Xarelto] Xarelto 20 MG Xarelt o 20 MG 04/05/2019 12:00:00 AM EST active TAKE ONE TABLET BY MOUTH EVERY DAY [facility] ([facility]) rivaroxaban 20 MG Oral Tablet [Xarelto] Xarelto 20 MG Xarelt o 20 MG 04/05/2019 12:00:00 AM EST active TAKE ONE TABLET BY MOUTH EVERY DAY eCW1 ([facility]) 10 mg 03/28/2019 12:00:00 AM EST tablet 30 TAKE 4 TABLETS BY MOUTH DAILY FOR 3 DAYS, THEN 3 TABLETS DAILY FOR 3 DAYS, THEN 2 TABLETS DAILY FOR 3 DAYS, THEN 1 TABLET DAILY FOR 3 DAYS TAKE 4 TABLETS BY MOUTH DAILY FOR 3 DAYS , THEN 3 TABLETS DAILY FOR 3 DAYS, THEN 2 TABLETS DAILY FOR 3 DAYS, THEN 1 TABLET DAILY FOR 3 DAYS SOLD: 03/28/2019 [facility] Doxycycline Monohydrate 100 MG Oral Capsule Doxycycline [place] hydrate 100 MG 03/27/2019 12:00:00 AM EST 1.0 {capsule} suspend ed Doxycycline Monohydrate 100 MG eCW1 ([facility]) Albuterol Sulfate HFA 108 (90 Base) MCG/ACT Albuterol Sulfate HFA 108 (90 Base) MCG/ACT 03/27/2019 12:00:00 AM EST 2.0 {puffs_as_needed} suspended Albuterol Sulfate HFA 108 (90 Base) MCG/ACT eCW1 ([facility]) PredniSONE 10 MG (48) PredniSONE 10 MG (48) 03/27/2019 12:00:00 AM EST suspended as directed eCW1 ([facility]) Albuterol Sulfate HFA 108 (90 Base) MCG/ACT Albuterol Sulfate HFA 108 (90 Base) MCG/ACT 03/27/2019 12:00:00 AM EST active 2 puffs as needed eCW1 ([facility]) Doxycycline Monohydrate 100 MG Oral Capsule Doxycycline [place] hydrate 100 MG 03/27/2019 12:00:00 AM EST 1.0 {capsule} suspend ed Doxycycline Monohydrate 100 MG eCW1 ([facility]) PredniSONE 10 MG (48) PredniSONE 10 MG (48) 03/27/2019 12:00:00 AM EST suspended PredniSONE 10 MG (48) eCW1 ( [facility]) Doxycycline Monohydrate 100 MG Oral Capsule Doxycycline [place] hydrate 100 MG 03/27/2019 12:00:00 AM EST active 1 capsule eCW1 ([facility]) Doxycycline Monohydrate 100 MG Oral Capsule Doxycycline [place] hydrate 100 MG 03/27/2019 12:00:00 AM EST suspended 1 capsule eCW1 ([facility]) PredniSONE 10 MG (48) PredniSONE 10 MG (48) 03/27/2019 12:00:00 AM EST suspended PredniSONE 10 MG (48) eCW1 ( [facility]) Doxycycline Monohydrate 100 MG Oral Capsule Doxycycline [place] hydrate 100 MG 03/27/2019 12:00:00 AM EST 1.0 {capsule} suspend ed Doxycycline Monohydrate 100 MG eCW1 ([facility]) PredniSONE 10 MG (48) PredniSONE 10 MG (48) 03/27/2019 12:00:00 AM EST suspended PredniSONE 10 MG (48) eCW1 ( [facility]) Doxycycline Monohydrate 100 MG Oral Capsule Doxycycline [place] hydrate 100 MG 03/27/2019 12:00:00 AM EST 1.0 {capsule} suspend ed Doxycycline Monohydrate 100 MG eCW1 ([facility]) PredniSONE 10 MG (48) PredniSONE 10 MG (48) 03/27/2019 12:00:00 AM EST suspended PredniSONE 10 MG (48) eCW1 ( [facility]) Albuterol Sulfate HFA 108 (90 Base) MCG/ACT Albuterol Sulfate HFA 108 (90 Base) MCG/ACT 03/27/2019 12:00:00 AM EST 2.0 {puffs_as_needed} active Albuterol Sulfate HFA 108 (90 Base) MCG/ACT eCW1 ([facility]) Doxycycline Monohydrate 100 MG Oral Capsule Doxycycline [place] hydrate 100 MG 03/27/2019 12:00:00 AM EST suspended 1 capsule eCW1 ([facility]) Albuterol Sulfate HFA 108 (90 Base) MCG/ACT Albuterol Sulfate HFA 108 (90 Base) MCG/ACT 03/27/2019 12:00:00 AM EST 2.0 {puffs_as_needed} active Albuterol Sulfate HFA 108 (90 Base) MCG/ACT eCW1 ([facility]) PredniSONE 10 MG (48) PredniSONE 10 MG (48) 03/27/2019 12:00:00 AM EST active as directed eCW1 ([facility]) PredniSONE 10 MG (48) PredniSONE 10 MG (48) 03/27/2019 12:00:00 AM EST suspended PredniSONE 10 MG (48) eCW1 ( [facility]) Albuterol Sulfate HFA 108 (90 Base) MCG/ACT Albuterol Sulfate HFA 108 (90 Base) MCG/ACT 03/27/2019 12:00:00 AM EST active 2 puffs as needed eCW1 ([facility]) PredniSONE 10 MG (48) PredniSONE 10 MG (48) 03/27/2019 12:00:00 AM EST suspended PredniSONE 10 MG (48) eCW1 ( [facility]) Doxycycline Monohydrate 100 MG Oral Capsule Doxycycline [place] hydrate 100 MG 03/27/2019 12:00:00 AM EST 1.0 {capsule} suspend ed Doxycycline Monohydrate 100 MG eCW1 ([facility]) Doxycycline Monohydrate 100 MG Oral Capsule Doxycycline [place] hydrate 100 MG 03/27/2019 12:00:00 AM EST 1.0 {capsule} suspend ed Doxycycline Monohydrate 100 MG eCW1 ([facility]) Doxycycline Monohydrate 100 MG Oral Capsule Doxycycline [place] hydrate 100 MG 03/27/2019 12:00:00 AM EST suspended 1 capsule eCW1 ([facility]) Albuterol Sulfate HFA 108 (90 Base) MCG/ACT Albuterol Sulfate HFA 108 (90 Base) MCG/ACT 03/27/2019 12:00:00 AM EST active 2 puffs as needed eCW1 ([facility]) Albuterol Sulfate HFA 108 (90 Base) MCG/ACT Albuterol Sulfate HFA 108 (90 Base) MCG/ACT 03/27/2019 12:00:00 AM EST active 2 puffs as needed eCW1 ([facility]) PredniSONE 10 MG (48) PredniSONE 10 MG (48) 03/27/2019 12:00:00 AM EST suspended PredniSONE 10 MG (48) eCW1 ( [facility]) Albuterol Sulfate HFA 108 (90 Base) MCG/ACT Albuterol Sulfate HFA 108 (90 Base) MCG/ACT 03/27/2019 12:00:00 AM EST 2.0 {puffs_as_needed} suspended Albuterol Sulfate HFA 108 (90 Base) MCG/ACT eCW1 ([facility]) Doxycycline Monohydrate 100 MG Oral Capsule Doxycycline [place] hydrate 100 MG 03/27/2019 12:00:00 AM EST 1.0 {capsule} suspend ed Doxycycline Monohydrate 100 MG eCW1 ([facility]) PredniSONE 10 MG (48) PredniSONE 10 MG (48) 03/27/2019 12:00:00 AM EST active as directed eCW1 ([facility]) Doxycycline Monohydrate 100 MG Oral Capsule Doxycycline [place] hydrate 100 MG 03/27/2019 12:00:00 AM EST active 1 capsule eCW1 ([facility]) PredniSONE 10 MG (48) PredniSONE 10 MG (48) 03/27/2019 12:00:00 AM EST suspended PredniSONE 10 MG (48) eCW1 ( [facility]) PredniSONE 10 MG (48) PredniSONE 10 MG (48) 03/27/2019 12:00:00 AM EST suspended PredniSONE 10 MG (48) eCW1 ( [facility]) Doxycycline Monohydrate 100 MG Oral Capsule Doxycycline [place] hydrate 100 MG 03/27/2019 12:00:00 AM EST 1.0 {capsule} suspend ed Doxycycline Monohydrate 100 MG eCW1 ([facility]) PredniSONE 10 MG (48) PredniSONE 10 MG (48) 03/27/2019 12:00:00 AM EST suspended as directed eCW1 ([facility]) Doxycycline Monohydrate 100 MG Oral Capsule Doxycycline [place] hydrate 100 MG 03/27/2019 12:00:00 AM EST 1.0 {capsule} suspend ed Doxycycline Monohydrate 100 MG eCW1 ([facility]) Albuterol Sulfate HFA 108 (90 Base) MCG/ACT Albuterol Sulfate HFA 108 (90 Base) MCG/ACT 03/27/2019 12:00:00 AM EST 2.0 {puffs_as_needed} suspended Albuterol Sulfate HFA 108 (90 Base) MCG/ACT eCW1 ([facility]) Doxycycline Monohydrate 100 MG Oral Capsule Doxycycline [place] hydrate 100 MG 03/27/2019 12:00:00 AM EST 1.0 {capsule} suspend ed Doxycycline Monohydrate 100 MG eCW1 ([facility]) Albuterol Sulfate HFA 108 (90 Base) MCG/ACT Albuterol Sulfate HFA 108 (90 Base) MCG/ACT 03/27/2019 12:00:00 AM EST 2.0 {puffs_as_needed} active Albuterol Sulfate HFA 108 (90 Base) MCG/ACT eCW1 ([facility]) Albuterol Sulfate HFA 108 (90 Base) MCG/ACT Albuterol Sulfate HFA 108 (90 Base) MCG/ACT 03/27/2019 12:00:00 AM EST 2.0 {puffs_as_needed} active Albuterol Sulfate HFA 108 (90 Base) MCG/ACT eCW1 ([facility]) Doxycycline Monohydrate 100 MG Oral Capsule Doxycycline [place] hydrate 100 MG 03/27/2019 12:00:00 AM EST 1.0 {capsule} suspend ed Doxycycline Monohydrate 100 MG eCW1 ([facility]) Albuterol Sulfate HFA 108 (90 Base) MCG/ACT Albuterol Sulfate HFA 108 (90 Base) MCG/ACT 03/27/2019 12:00:00 AM EST 2.0 {puffs_as_needed} active Albuterol Sulfate HFA 108 (90 Base) MCG/ACT eCW1 ([facility]) 90 mcg/actuation 03/27/2019 12:00:00 AM EST HFA aerosol inha ler 18 INHALE 2 PUFFS BY MOUTH EVERY 6 HOURS NEEDED INHALE 2 PUFFS BY MOUTH EVERY 6 HOURS NEEDED SOLD: 03/28/2019 [facility] PredniSONE 10 MG (48) PredniSONE 10 MG (48) 03/27/2019 12:00:00 AM EST suspended PredniSONE 10 MG (48) eCW1 ( [facility]) PredniSONE 10 MG (48) PredniSONE 10 MG (48) 03/27/2019 12:00:00 AM EST suspended as directed eCW1 ([facility]) Albuterol Sulfate HFA 108 (90 Base) MCG/ACT Albuterol Sulfate HFA 108 (90 Base) MCG/ACT 03/27/2019 12:00:00 AM EST active 2 puffs as needed eCW1 ([facility]) PredniSONE 10 MG (48) PredniSONE 10 MG (48) 03/27/2019 12:00:00 AM EST suspended PredniSONE 10 MG (48) eCW1 ( [facility]) PredniSONE 10 MG (48) PredniSONE 10 MG (48) 03/27/2019 12:00:00 AM EST suspended PredniSONE 10 MG (48) eCW1 ( [facility]) Doxycycline Monohydrate 100 MG Oral Capsule Doxycycline [place] hydrate 100 MG 03/27/2019 12:00:00 AM EST 1.0 {capsule} suspend ed Doxycycline Monohydrate 100 MG eCW1 ([facility]) Albuterol Sulfate HFA 108 (90 Base) MCG/ACT Albuterol Sulfate HFA 108 (90 Base) MCG/ACT 03/27/2019 12:00:00 AM EST 2.0 {puffs_as_needed} active Albuterol Sulfate HFA 108 (90 Base) MCG/ACT eCW1 ([facility]) Albuterol Sulfate HFA 108 (90 Base) MCG/ACT Albuterol Sulfate HFA 108 (90 Base) MCG/ACT 03/27/2019 12:00:00 AM EST 2.0 {puffs_as_needed} suspended Albuterol Sulfate HFA 108 (90 Base) MCG/ACT eCW1 ([facility]) Albuterol Sulfate HFA 108 (90 Base) MCG/ACT Albuterol Sulfate HFA 108 (90 Base) MCG/ACT 03/27/2019 12:00:00 AM EST 2.0 {puffs_as_needed} suspended Albuterol Sulfate HFA 108 (90 Base) MCG/ACT eCW1 ([facility]) Albuterol Sulfate HFA 108 (90 Base) MCG/ACT Albuterol Sulfate HFA 108 (90 Base) MCG/ACT 03/27/2019 12:00:00 AM EST 2.0 {puffs_as_needed} suspended Albuterol Sulfate HFA 108 (90 Base) MCG/ACT eCW1 ([facility]) Prednisone 10 MG Oral Tablet Prednisone 03/19/2019 12:00:00 AM EST completed [facility] ([facility]) Doxycycline Monohydrate 100 MG Oral Capsule Doxycycline [place] hydrate 03/19/2019 12:00:00 AM EST ORAL completed [facility] ([facility]) 10 mg 03/13/2019 12:00:00 AM EST tablet 30 TAKE ONE TABLET BY MOUTH EVERY DAY TAKE ONE TABLET BY MOUTH EVERY DAY SOLD: 05/28/2019 [facility] 10 mg 03/13/2019 12:00:00 AM EST tablet 30 TAKE ONE TABLET BY MOUTH EVERY DAY TAKE ONE TABLET BY MOUTH EVERY DAY SOLD: 07/23/2019 [facility] 10 mg 03/13/2019 12:00:00 AM EST tablet 30 TAKE ONE TABLET BY MOUTH EVERY DAY TAKE ONE TABLET BY MOUTH EVERY DAY SOLD: 08/20/2019 [facility] 10 mg 03/13/2019 12:00:00 AM EST tablet 30 TAKE ONE TABLET BY MOUTH EVERY DAY TAKE ONE TABLET BY MOUTH EVERY DAY SOLD: 04/30/2019 [facility] 10 mg 03/13/2019 12:00:00 AM EST tablet 30 TAKE ONE TABLET BY MOUTH EVERY DAY TAKE ONE TABLET BY MOUTH EVERY DAY SOLD: 06/24/2019 [facility] 10 mg 03/13/2019 12:00:00 AM EST tablet 30 TAKE ONE TABLET BY MOUTH EVERY DAY TAKE ONE TABLET BY MOUTH EVERY DAY SOLD: 03/26/2019 [facility] 17 gram/dose 03/10/2019 12:00:00 AM EST powder 510 MIX 1 CAPFUL IN LIQUID AND TAKE BY MOUTH ONCE DAILY NEEDED FOR CONSTIPATION MIX 1 CAPFUL IN LIQUID AND TAKE BY MOUTH ONCE DAILY NEEDED FOR CONSTIPATION SOLD: 07/01/2019 [facility] 17 gram/dose 03/10/2019 12:00:00 AM EST powder 510 MIX 1 CAPFUL IN LIQUID AND TAKE BY MOUTH ONCE DAILY NEEDED FOR CONSTIPATION MIX 1 CAPFUL IN LIQUID AND TAKE BY MOUTH ONCE DAILY NEEDED FOR CONSTIPATION SOLD: 05/06/2019 [facility] 17 gram/dose 03/10/2019 12:00:00 AM EST powder 510 MIX 1 CAPFUL IN LIQUID AND TAKE BY MOUTH ONCE DAILY NEEDED FOR CONSTIPATION MIX 1 CAPFUL IN LIQUID AND TAKE BY MOUTH ONCE DAILY NEEDED FOR CONSTIPATION SOLD: 07/28/2019 [facility] 17 gram/dose 03/10/2019 12:00:00 AM EST powder 510 MIX 1 CAPFUL IN LIQUID AND TAKE BY MOUTH ONCE DAILY NEEDED FOR CONSTIPATION MIX 1 CAPFUL IN LIQUID AND TAKE BY MOUTH ONCE DAILY NEEDED FOR CONSTIPATION SOLD: 04/06/2019 [facility] 17 gram/dose 03/10/2019 12:00:00 AM EST powder 510 MIX 1 CAPFUL IN LIQUID AND TAKE BY MOUTH ONCE DAILY NEEDED FOR CONSTIPATION MIX 1 CAPFUL IN LIQUID AND TAKE BY MOUTH ONCE DAILY NEEDED FOR CONSTIPATION SOLD: 06/02/2019 [facility] 4 mg 03/09/2019 12:00:00 AM EST tablet 30 TAKE ONE TABLET BY MOUTH FOUR TIMES A DAY NEEDED TAKE ONE TABLET BY MOUTH FOUR TIMES A DAY NEEDED SO LD: 09/21/2019 [facility] 4 mg 03/09/2019 12:00:00 AM EST tablet 30 TAKE ONE TABLET BY MOUTH FOUR TIMES A DAY NEEDED TAKE ONE TABLET BY MOUTH FOUR TIMES A DAY NEEDED SO LD: 05/09/2019 [facility] 4 mg 03/09/2019 12:00:00 AM EST tablet 30 TAKE ONE TABLET BY MOUTH FOUR TIMES A DAY NEEDED TAKE ONE TABLET BY MOUTH FOUR TIMES A DAY NEEDED SO LD: 08/11/2019 [facility] 325 mg (65 mg iron) 02/23/2019 12:00:00 AM EDT tablet 30 TAKE ONE TABLET BY MOUTH EVERY DAY TAKE ONE TABLET BY MOUTH EVERY DAY SOLD: 04/30/2019 [facility] 325 mg (65 mg iron) 02/23/2019 12:00:00 AM EDT tablet 30 TAKE ONE TABLET BY MOUTH EVERY DAY TAKE ONE TABLET BY MOUTH EVERY DAY SOLD: 04/03/2019 [facility] 325 mg (65 mg iron) 02/23/2019 12:00:00 AM EDT tablet 30 TAKE ONE TABLET BY MOUTH EVERY DAY TAKE ONE TABLET BY MOUTH EVERY DAY SOLD: 07/23/2019 [facility] 325 mg (65 mg iron) 02/23/2019 12:00:00 AM EDT tablet 30 TAKE ONE TABLET BY MOUTH EVERY DAY TAKE ONE TABLET BY MOUTH EVERY DAY SOLD: 05/28/2019 [facility] 325 mg (65 mg iron) 02/23/2019 12:00:00 AM EDT tablet 30 TAKE ONE TABLET BY MOUTH EVERY DAY TAKE ONE TABLET BY MOUTH EVERY DAY SOLD: 06/24/2019 [facility] 100 mg 01/27/2019 12:00:00 AM EDT tablet 60 TAKE ONE TABLET BY MOUTH TWICE A DAY TAKE ONE TABLET BY MOUTH TWICE A DAY SOLD: 04/30/2019 [facility] venlafaxine 100 MG Oral Tablet VENLAFAXINE HCL 01/27/2019 12:00: 00 AM EDT tablet 90 TAKE ONE TABLET BY MOUTH THREE T IMES A DAY TAKE ONE TABLET BY MOUTH THREE TIMES A DAY SOLD: 04/30/2019 [facility] venlafaxine 100 MG Oral Tablet VENLAFAXINE HCL 01/27/2019 12:00: 00 AM EDT tablet 90 TAKE ONE TABLET BY MOUTH THREE T IMES A DAY TAKE ONE TABLET BY MOUTH THREE TIMES A DAY SOLD: 04/03/2019 [facility] 100 mg 01/27/2019 12:00:00 AM EDT tablet 60 TAKE ONE TABLET BY MOUTH TWICE A DAY TAKE ONE TABLET BY MOUTH TWICE A DAY SOLD: 04/03/2019 [facility] 20 mg 01/22/2019 12:00:00 AM EDT tablet 30 TAKE 1 TABLET BY MOUTH NEEDED FOR EDEMA TAKE 1 TABLET BY MOUTH NEEDED FOR EDEMA SOLD: 03/26/2019 [facility] 20 mg 01/22/2019 12:00:00 AM EDT tablet 30 TAKE 1 TABLET BY MOUTH NEEDED FOR EDEMA TAKE 1 TABLET BY MOUTH NEEDED FOR EDEMA SOLD: 04/30/2019 [facility] 5,000 unit 01/13/2019 12:00:00 AM EDT capsule 60 TAKE 2 CAPSULES BY MOUTH ONCE DAILY TAKE 2 CAPSULES BY MOUTH ONCE DAILY SOLD: 03/26/2019 [facility] 125 mcg (5,000 unit) 01/13/2019 12:00:00 AM EDT capsule 60 TAKE 2 CAPSULES BY MOUTH ONCE DAILY TAKE 2 CAPSULES BY MOUTH ONCE DAILY SOLD: 04/30/2019 [facility] atorvastatin 20 MG Oral Tablet ATORVASTATIN CALCIUM 01/11/2019 1 2:00:00 AM EDT tablet 30 TAKE ONE TABLET BY MOUTH EVERY D AY TAKE ONE TABLET BY MOUTH EVERY DAY SOLD: 03/26/2019 [facility] atorvastatin 20 MG Oral Tablet ATORVASTATIN CALCIUM 01/11/2019 1 2:00:00 AM EDT tablet 30 TAKE ONE TABLET BY MOUTH EVERY D AY TAKE ONE TABLET BY MOUTH EVERY DAY SOLD: 04/26/2019 [facility] 10 mg 01/04/2019 12:00:00 AM EDT tablet,disintegrating 2 TAKE 1 TABLET BY MOUTH MAY REPEAT 1 TABLET IN 2 HOURS IF NO RELIEF DAILY NEEDED TAKE 1 TABLET BY MOUTH MAY REPEAT 1 TABLET IN 2 HOURS IF NO RELIEF DAILY NEEDED SOLD: 08/20/2019 [facility] 40 mg 12/19/2018 12:00:00 AM EDT capsule,delayed release (DR/EC) 60 TAKE ONE CAPSULE BY MOUTH TWICE A DAY TAKE ONE CAPSULE BY MOUTH TWICE A DAY SOLD: 03/26/2019 [facility] Insurance Providers Payer name Policy type / Coverage type Policy ID Covered constitution party ID Covered constitution party's relationship to cardona Policy Cardona Plan Information REPLACED BY [facility] COMMUNITY PLAN MCDHMO [id number] SP [id number] UNHC COMMUNITY PLAN MCDHMO [id number] SP [id number] [facility]) O [id number] S [id number] [facility] I [id number] Self [id number] [facility] [id number] SP [id number] [place] 306/806 [id number] SP [id number] UNHC COMMUNITY PLAN XIX [id number] 18 [id number] [place]BS [place] PPO 302/307 [id number] SP [id number] OFFICE OF VICTIMS SERVIC O [id number] S [id number] [employer] BCBS B [id number] S [id number] [place] 306/806 [id number] SP [id number] [facility] [id number] SP [id number] [facility] OFFICE OF VICTIM SERVICES [id number] SP [id number] ANSI-Not a Secondary Insurance [id number] ANSI-Medicaid [id number] ANSI-Medicaid [id number] [facility] Health Maintenance Organization (HMO) [id number] Self [id number] ANSI-Medicaid [id number] ANSI-Not a Secondary Insurance [id number] ANSI-Medicaid [id number] ANSI-Medicaid [id number] ANSI-Medicaid [id number] ANSI-Not a Secondary Insurance [id number] [facility] Health Maintenance Organization ([facility]) [id number] Self [id number] ANSI-Medicaid [id number] ANSI-Medicaid [id number] ANSI-Not a Secondary Insurance [id number] REPLACED BY [facility] COMMUNITY PLAN MCDO [id number] SP [id number] [facility] Health Maintenance Organization (HMO) [id number] Self [id number] Memic Ins (WC) Workers Compensation [id number] Self [id number] [place]ig[place] Part B [id number] Self [id number] [facility] Medigap Part B [id number] Self [id number] [facility] Health Maintenance Organization (HMO) [id number] Self [id number] ANSI-Medicaid [id number] ANSI-Medicaid [id number] ANSI-Not a Secondary Insurance [id number] ANSI-Medicaid [id number] ANSI-Medicaid [id number] ANSI-Not a Secondary Insurance [id number] ANSI-Not a Secondary Insurance [id number] ANSI-Medicaid [id number] ANSI-Medicaid [id number] ANSI-Medicaid [id number] ANSI-Not a Secondary Insurance [id number] ANSI-Medicaid [id number] ANSI-Not a Secondary Insurance [id number] ANSI-Medicaid [id number] ANSI-Medicaid [id number] [place] [facility] Part B [id number] Self [id number] ANSI-Not a Secondary Insurance [id number] ANSI-Medicaid [id number] ANSI-Medicaid [id number] [facility] Health Maintenance Organization (HMO) [id number] Self [id number] [facility] Health Maintenance Organization (HMO) [id number] Self [id number] Medicaid [facility] Part B [id number] Self [id number] ANSI-Medicaid [id number] ANSI-Not a Secondary Insurance [id number] ANSI-Medicaid [id number] ANSI-Medicaid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 Nathalie Beyer RN) Gastric bypass status for obesity (Acute Surgical) Z98.84 2013 History of hysterectomy (Acute Surgical) Z90.710 S/P hernia surgery (Acute Surgical) Z98.890, Z87.19 Female History LMP:: Hysterectomy : No Lactating mother:: No Hx Drug Resistant Infections Hx Other Resistant Infection?: No Isolation: Standard precautions Hx Recent Travel Out of the country within 10 days (where): No Hx Fever: No Hx Fever with a rash?: No Nurse screening for coronavirus: Recent Travel outside the No country (where) Has patient experienced No coronavirus symptoms Social History Does patient have suicidal/homicidal thoughts or ideation?: No Are you in a relationship with/Does anyone hit you, yell/swear at you, steal from you?: No Substance Use Hx Alcohol Use: No Hx Substance Use: No Hx Substance Use Treatment: No Second Hand Smoke Exposure: No Vaccination History Hx/Date of Tetanus, Diphtheria Vaccination: Yes Hx/Date of Influenza Vaccination: Yes ROS Review of Systems ROS Narrative: Total of more than 10 systems were reviewed and they were all negative except as mentioned in the history of present illness. Physical Exam General Limitations: no limitations General appearance: alert and in no apparent distress Head Head exam: Present atraumatic and normocephalic Eye Eye exam: Present normal apperance ENT ENT exam: Present other (Normal inspection) Neck Neck exam: Present normal inspection Respiratory Respiratory exam: Absent respiratory distress GI/Abdominal GI/Abdominal exam: Present soft, tenderness (Moderate right-sided and epigastric tenderness.) and normal bowel sounds; Absent guarding, rebound and organomegaly Extremities Exam Extremities exam: Present normal inspection Neurological Exam Neurological exam: Present alert, oriented X3 and other (No gross neurologic deficits) Skin Skin exam: Present warm and dry Vital Signs Vital Signs: Vital Signs 09/18/19 02:51 09/18/19 03:26 Temperature 98.1 F Pulse Rate 76 Respiratory Rate 20 20 Blood Pressure 132/76 O2 Sat by Pulse Oximetry 96 96 MDM (comprehensive) Lab Data Labs: 09/18/19 03:45 09/18/19 03:45 Laboratory Results Last 24 hours 09/18/19 03:40: Urine Color Yellow, Urine Appearance Clear, Urine pH 5.0, Ur Specific Holden 1.035 A, Urine Protein Negative, Urine Ketones Negative, Urine Blood Negative, Urine Nitrate Negative, Urine Bilirubin Negative, Urine Urobilinogen 1 eu/dl, Ur Leukocyte Esterase Negative, Add Ur Microanalysis No, Urine Glucose Negative 09/18/19 03:45: WBC 7.6, RBC 3.97 L, Hgb 12.2, Hct 37.8, MCV 95.2, MCH 30.7, MCHC 32.3 L, RDW 13, Plt Count 315, MPV 9.6, Immature Gran % (Auto) 0.3, Neut % (Auto) 60.7, Lymph % (Auto) 31.4, [place] % (Auto) 5.4, Eos % (Auto) 1.4, Baso % (Auto) 0.8, Lymph # (Auto) 2.4, Abs Immat Gran (auto) 0.0, Add Manual Diff No, Absolute Neutrophils 4.6, Monocytes # 0.4, Absolute Eosinophils 0.1, Absolute Basophils 0.1 09/18/19 03:45: Troponin I Less than 0.015 09/18/19 03:45: Sodium 142, Potassium 3.6, Chloride 113 H, Carbon Dioxide 20, Anion Gap 13, BUN 15, Creatinine 0.9, GFR Calculation Greater than 60, Glucose 121 H, Calcium 8.6, Total Bilirubin 0.2 L, AST 27, ALT 21, Alkaline Phosphatase 82, Serum Total Protein 7.6, Albumin 3.7, Amylase 36, Lipase 116 09/18/19 03:45: Lactic Acid 2.1 Radiology Data Radiology results: report reviewed Radiology impressions: CT abdomen-post gastric bypass surgery, no signs of bowel obstruction or leak, fluid-filled colon with air-fluid levels may represent diarrhea versus gastroenteritis, normal appendix, normal gallbladder and kidneys Medical Decision Making Free Text/Narative:: 5:30 AM-patient's pain is still 6/10 severity. Her abdominal tenderness is unchanged from initial examination. I discussed the patient with surgery on-call Dr. Man. He said he will come and evaluate the patient. 7 AM-patient evaluated by Dr. Man. He said patient most likely has acute cholec ystitis and recommended right upper quadrant ultrasound. Patient states that she wants to go home and will see her surgeon or her primary care doctor later today to have the ultrasound done as an outpatient. Dr. Man said that is reasonable. He said patient can be discharged home without any antibiotics and does not need follow-up with him. Differential Diagnosis Differential Diagnosis: Appendicitis, cholecystitis, bowel obstruction, internal herniation Discharge Plan Admission/Discharge Dx Primary DC Diagnosis: Right-sided abdominal pain ED Provider: Elie Ventura ED Status: Ready for Discharge Time Seen by Provider: 09/18/19 03:02 Triaged At: 09/18/19 02:37 Condition Condition: Stable Discharge Detail Disposition: Home, Self-Care Med Rec New Prescriptions: Continued venlafaxine 75 MG capsule,extended release 24hr 225 mg PO DAILY RF: 0 sucralfate [Carafate] 1 GM tablet 1 gm PO Q6H RF: 0 ondansetron HCl 4 MG tablet 4 mg PO DAILYPRN PRN (Reason: Nausea) RF: 0 tramadol [Ultram] 50 MG tablet 50 mg PO Q4-6HPRN PRN (Reason: Back Pain) RF: 0 baclofen 10 MG tablet 10 mg PO Q8H RF: 0 pantoprazole [Protonix] 40 MG tablet,delayed release (DR/EC) 40 mg PO BID RF: 0 iron 18 MG tablet 150 mg PO DAILY RF: 0 cholecalciferol (vitamin D3) [Vitamin D3] 1,000 UNIT capsule 2,000 unit PO DAILY RF: 0 cholecalciferol (vitamin D3) 10,000 UNIT capsule 50,000 unit PO WEEKLY RF: 0 pregabalin [Lyrica] 50 MG capsule 50 mg PO DAILY RF: 0 pregabalin [Lyrica] 75 MG capsule 75 mg PO HS RF: 0 aripiprazole [Abilify] 2 MG tablet 5 mg PO DAILY RF: 0 21-iron fu-folic acid [ Complete] 14 mg iron- 400 mcg tablet 1 ea PO DAILY RF: 0 rivaroxaban [Xarelto] 15 MG tablet 15 mg PO DAILY RF: 0 Y64-ojntpdreoarf calcium-B6 [Foltx] 2-1.13-25 mg tablet 1 ea PO DAILY RF: 0 Discharge Education Printouts: Acute Abdominal Pain (ED) Follow Up Visit/Referrals: Renée Flor [Primary Care Provider] - 09/18/19 (Follow-up with your primary care doctor or your surgeon within 24 hours) Diet:: Please stay on clear liquid diet only until you see your primary care doctor or your surgeon Medications Medication reconciliation performed by provider at discharge: Yes Forms Forms Work Release: Work/School/Activ/Gym Release *Discharge Patient* Discharge Orders: Discharge Order (Routine); Ordered 09/18/19 Ordered By: Elie Ventura Report Signers: <Electronically signed by Elie Ventura MD> Elie Ventura MD 09/18/19 0717 Elie Ventura MD SIGNATURE DA Report Cosigners: D: BROOKLYN 09/18/19645 T: [place] 09/18/19645 CC: Renée Flor Name Value Range Interpretation Code Description Data Emily rce(s) Supporting Document(s) ID Date Data Source [id number] 09/18/2019 04:57:00 AM EDT [facility] [address] [place] [address] [phone] NAME SEX PT STATUS ACCOUNT NUMBER PRISCILLA MAYNARD [facility] ER [id number] ORDERING PHYSICIAN LOCATION MEDICAL RECORD NO. Elie Ventura MD ER [id number] ATTENDING PHYSICIAN DATE OF DATE OF EXAM/TIME Renée Flor 1975 09/18/19 / 310 TYPE / EXAM CT Abd/pel w/ contrast REASON FOR EXAM Right sided and epigastric pain, H/o Gastric bypas Clinical History/Indication for Exam: Right sided and epigastric pain, H/o Gastric bypass 2012 CT abdomen and pelvis with contrast: Indication: Right sided and epigastric pain, H/o Gastric bypass 2012 Technique: Contiguous axial images of the CT abdomen pelvis from diaphragm to the pubis symphysis with isovue 300 and 20ml gastrografin / 100cc iv intravenous contrast administration. Comparison:No priors Findings: Abdomen: The lung bases are clear. Fatty infiltration of the liver parenchyma present. There is elevated bilateral hemidiaphragms. The patient's post gastric bypass surgery. No oral contrast extravasation to suggest leak. The liver, spleen, adrenal glands, pancreas, gallbladder and bilateral kidneys are normal. The bowel gas pattern is nonobstructive. There is no intraperitoneal free air. No abnormal retroperitoneal or mesenteric adenopathy. Small periaortic and aortocaval lymph nodes present. Pelvis: The appendix and terminal ileum are normal. Fluid-filled colon with scattered year full levels identified. Scattered sigmoid diverticulosis are without inflammatory changes. Patient's post hysterectomy. There is no distal ureteral or bladder calculi. There is no free pelvis fluid, mass or adenopathy. No destructive osseous lesion seen. The aorta is normal. Impression: Post gastric bypass surgery. No signs of bowel obstruction or evidence of leak. Fluid-filled colon with air- fluid levels may represent diarrhea versus gastroenteritis. Normal appendix. No bowel obstruction. Automatic exposure control was used as a dose lowering technique. Contrast Type: isovue 300 and 20ml gastrografin. Contrast Volume: 100cc iv REPORT SIGNATURE ON FILE 09/18/2019 (04:57 Eastern Time ) Signed by: Lianne Feng MD Reported By Lianne Feng MD on 09/18/19456 Signed By Lianne Feng MD on 09/18/19456 Date Time CC: Renée Flor; Lianne Feng MD Techn: THANG Trans Dt/Tm: Trans by: DT Prt Dt/Tm: : Total DLP = 1093.00 mGy-cm : Total Radiation Dose = 16.3950 mSv Lifetime Dose: 16.3950 mSv Name Value Range Interpretation Code Description Data Emily rce(s) Supporting Document(s) ID Date Data Source [id number] 09/18/2019 05:26:00 AM EDT [facility] Name Value Range Interpretation Code Description Data Emily rce(s) Supporting Document(s) Leukocytes [#/volume] in Blood by Automated count 7.6 10*3/uL 4.45-10 .71 N [facility] Erythrocytes [#/volume] in Blood by Automated count 3.97 10*6/uL 4.20-5.40 Below low normal [facility] Hemoglobin [Moles/volume] in Blood 12.2 g/dL 10.7-15.4 N [facility] Hematocrit [Volume Fraction] of Blood by Automated count 37.8 % 3 7-47 N [facility] Erythrocyte mean corpuscular volume [Ent itic volume] in Cord blood by Automated count 95.2 fL 80-96 N [facility] Erythrocyte mean corpuscular hemoglobin [Entitic mass] by Automated count 30.7 pg 27-31 N [facility] Erythrocyte mean corpuscular hemoglobin concentration [Mass/volume] in Cord blood 32.3 g/dL 33-37 Below low normal [facility] Erythrocyte distribution width [Entitic volume] by Automated count 13 % 11-15 N [facility] Platelets [#/volume] in Blood by Automated count 315 10*3/uL 130-472 N [facility] Platelet mean volume [Entitic volume] in Blood 9.6 fL 9.1-13.1 N [facility] Neutrophils/100 leukocytes in Blood by Automated count 60.7 % 41- 77 N [facility] Neutrophils [#/volume] in Blood by Automated count 4.6 U 1.7-7.6 N [facility] Lymphocytes/100 leukocytes in Blood by Automated count 31.4 % 14- 46 N [facility] Lymphocytes [#/volume] in Blood by Automated count 2.4 U 0.6-4.6 N [facility] Monocytes/100 leukocytes in Blood by Automated count 5.4 % 4-12 N [facility] Monocytes [#/volume] in Blood by Automated count 0.4 U 0.2-1.2 N [facility] Eosinophils/100 leukocytes in Blood by Automated count 1.4 % 0-7 N [facility] Eosinophils [#/volume] in Blood by Automated count 0.1 U 0.0-0.5 N [facility] Basophils/100 leukocytes in Blood by Automated count 0.8 % 0.4-1 .3 N [facility] Basophils [#/volume] in Blood by Automated count 0.1 U 0.0-0.2 N [facility] NUCLEATED RED BLOOD CELL 0 % [facility] NUCLEATED RED BLOOD CELL# 0 U [facility] Immature granulocytes [Presence] in Blood by Automated count 0-2 N [facility] Immature granulocytes [#/volume] in Blood by Automated count 0.0 U 0-0.1 N [facility] Manual Differential panel - Blood NO [facility] ID Date Data Source [id number] 09/18[facility]2019 05:30[facility] Name Value Range Interpretation Code Description Data Emily rce(s) Supporting Document(s) Troponin I.cardiac [Mass/volume] in Serum or Plasma Less Than 0.015 0.00-0.09 [facility] Less than 0.09 NG/ML Negative0.10 - 0.77 NG/ML High Risk0.78 NG/ML or Greater PositiveThe WHO defined the cutoff (definition for diagnosis of MN)for this method as 0.78 ng/ml. ID Date Data Source [id number] 09/18/2019 05:24:00 [facility] Special Instructions: Lab may order repe at test if initial test elevatedPhysician If elevated, reflex second test in 4-6 hrs Name Value Range Interpretation Code Description Data Emily rce(s) Supporting Document(s) Lactic w Rfx (if elevated) 2.1 mmol/L 0.5-2.2 N [facility] Taken to Nathalie Beyer @ 0425 by [place]. Resultsread back. ID Date Data Source [id number] 09/18/2019 05:24:00 AM [facility] Special Instructions: Lab may order repe at test if initial test elevatedPhysician If elevated, reflex second test in 4-6 hrs Name Value Range Interpretation Code Description Data Emily rce(s) Supporting Document(s) Urea nitrogen [Mass/volume] in Serum or Plasma 15 mg/dL 9-23 N [facility] Sodium [Moles/volume] in Serum or Plasma 142 mmol/L 132-146 N [facility] Potassium [Moles/volume] in Serum or Plasma 3.6 mmol/L 3.5-5.5 [facility] Chloride [Moles/volume] in Serum or Plasma 113 mmol/L 99-109 Above high normal [facility] Carbon dioxide, total [Moles/volume] in Serum or Plasma 20 mmol/L 20 -31 N [facility] Anion gap in Serum or Plasma 13 mmol/L 8-16 N [facility] Glucose [Mass/volume] in Serum or Plasma 121 mg/dL 74-106 Above high normal [facility] Creatinine 0.9 mg/dL 0.5-1.1 [facility] Glomerular filtration rate/1.73 sq M.pre dicted [Volume Rate/Area] in Serum or Plasma Greater Than 60 ABOVE 60 [facility] Alanine aminotransferase [Enzymatic acti vity/volume] in Serum or Plasma by With P-5'-P 21 U/L 10-49 N [facility] ital Aspartate aminotransferase [Enzymatic ac tivity/volume] in Serum or Plasma by With P-5'-P 27 U/L 0-33 N [facility] pital Alkaline phosphatase [Enzymatic activity/volume] in Serum or Plasma 82 U/L 45-129 N [facility] Calcium [Mass/volume] in Serum or Plasma 8.6 mg/dL 8.5-10.1 [facility] Bilirubin.total [Mass/volume] in Serum or Plasma 0.2 mg/dL 0.3-1.2 Below low normal [facility] Albumin [Mass/volume] in Serum or Plasma by Bromocresol purple (BCP) dye binding method 3.7 g/dL 3.2-4.8 [facility] ital Protein [Mass/volume] in Serum or Plasma 7.6 g/dL 5.7-8.2 [facility] ID Date Data Source [id number] 09/18/2019 05:24:00 AM [facility] Special Instructions: Lab may order repe at test if initial test elevatedPhysician If elevated, reflex second test in 4-6 hrs Name Value Range Interpretation Code Description Data Emily rce(s) Supporting Document(s) Amylase [Enzymatic activity/volume] in Serum or Plasma 36 U/L 30- 118 N [facility] ID Date Data Source [id number] 09/18/2019 05:24:00 [facility] Instructions: Lab may order repe at test if initial test elevatedPhysician If elevated, reflex second test in 4-6 hrs Name Value Range Interpretation Code Description Data Emily rce(s) Supporting Document(s) Lipase [Enzymatic activity/volume] in Serum or Plasma 116 U/L 73-3 93 N [facility] ID Date Data Source [id number] 09/18/2019 05:27:00 AM EDT [facility] Reason for ordering culture: Abnormal fi ndings UAMethod of Collection:: Voided Name Value Range Interpretation Code Description Data Emily rce(s) Supporting Document(s) Color of Urine [facility] Appearance of Urine CLEAR [facility] pH of Urine by Test strip 5.0 5-8 [facility] Specific gravity of Urine by Refractometry 1.035 1.005 -1.030 Abnormal (applies to non-numeric results) [facility] Leukocyte esterase [Presence] in Urine by Test strip NEGAT [place] [facility] Nitrite [Presence] in Urine by Test strip NEGATIVE [facility] Protein [Presence] in Urine by Test strip NEGATIVE [facility] Glucose [Mass/volume] in Urine by Automated test strip NEGATIVE NEG ATIVE [facility] Ketones [Presence] in Urine by Test strip NEGATIVE [facility] Urobilinogen [Presence] in Urine 0.2-1 EU/dl [facility] Bilirubin.total [Presence] in Urine by Automated test strip NEGATIVE [facility] Erythrocytes [#/volume] in Urine by Test strip NEGATIVE NEGATIVE [facility] URINE MICROSCOPIC? (CIF) NO [facility] ID Date Data Source SYPHILIS ANTIBODY (RPR SCREEN) 09/18/2019 12:00:00 AM EDT eC W1 ([facility]) Name Value Range Interpretation Code Description Data Emily rce(s) Supporting Document(s) NONREACTIVE NONREACTIVE SYPHILIS eCW1 ([facility]) ID Date Data Source PT & APTT 09/18/2019 12:00:00 AM EDT eCW1 ([facility]) Name Value Range Interpretation Code Description Data Emily rce(s) Supporting Document(s) 1.14 INR eCW1 ([facility]) 14.3 11.8-14.0 PROTHROMBIN TIME eCW1 ([facility]) 34.8 25.0-38.4 PARTIAL THROMBOPLASTIN TI ME eCW1 ([facility]) ID Date Data Source CBC with Differential 09/18/2019 12:00:00 AM EDT eCW1 ([facility]) Name Value Range Interpretation Code Description Data Emily rce(s) Supporting Document(s) 7.4 4.0-10.0 WHITE BLOOD COUNT eCW1 (Pending sale to [facility]) 3.92 4.00-5.40 RED BLOOD COUNT eCW1 ([facility]) 12.0 12.0-15.5 HEMOGLOBIN eCW1 ([facility]) 37.7 36.0-47.0 HEMATOCRIT eCW1 ([facility]) 96.2 80.0-96.0 MEAN CORPUSCULAR VOLUME e CW1 ([facility]) 31.8 32.0-36.5 MEAN CORPUSCULAR HGB CONC eCW1 ([facility]) 30.6 27.0-33.0 MEAN CORPUSCULAR HEMOGLOB IN eCW1 ([facility]) 13.3 11.5-14.5 RED CELL DISTRIBUTION WID TH eCW1 ([facility]) 332 150-450 PLATELET COUNT, AUTOMATED eCW1 ([facility]) 50.0 36.0-66.0 NEUTROPHILS % eCW1 ([facility]) 37.8 24.0-44.0 LYMPH % eCW1 ([facility]) 2.7 0.0-3.0 EOS % eCW1 ([facility]) 8.6 0.0-5.0 MONO % eCW1 ([facility]) 0.8 0.0-1.0 BASO % eCW1 ([facility]) 3.7 1.5-8.5 NEUTROPHILS # eCW1 ([facility]) 2.8 1.5-5.0 LYMPH # eCW1 ([facility]) 0.6 0.0-0.8 MONO # eCW1 ([facility]) 0.1 0.0-0.2 BASO # eCW1 ([facility]) 0.2 0.0-0.5 EOS # eCW1 ([facility]) ID Date Data Source [id number] 08/06/2019 10:34:00 AM EDT [facility] [address] [place] [address] PHONE: [phone] FAX: [phone] Name .................. : CAESAR Turcios Acct Number.................. : [id number] ROOM. ................. : [facility] MR Number ................... : [id number] Stay type ............. : E/R Discharge Date......... ... : Admit Date ......... : 08/02/19 Admit Phys .................... : FEDERICO TSEVENS Date of ....... : 1975 Family Phys ................... : MONE FARAH Phone .................. : [phone] Age ................................ : 43 Film# .................. .:[id number] Sex ................................. : F Unsigned transcriptions are preliminary reports and do not represent a medical or legal document CHEST PORTABLE [id number] COMPLETE:08/02/19 21:20 [id number] Reason(s): Chest Pain PORTABLE CHEST X-RAY: COMPARISON: None available. FINDINGS: There is no acute consolidation or congestive heart failure. The heart is not enlarged. There is no hilar adenopathy. IMPRESSION: No evidence of significant acute pulmonary disease. Electronically Reviewed and Signed By Gurmeet Lawton MD , 08/06/19 10:34, AML Transcribe Initials: JEREMIAS , Transcribe Date: 08/02/19 21:43, Dictation Date: Copy for: EMERGENCY DEPT via modem Copy for: 710 MED REC DISCHARGED Page 1 of 1 Name Value Range Interpretation Code Description Data Emily rce(s) Supporting Document(s) ID Date Data Source [id number] 08/06/2019 10:08:00 AM EDT [facility] [address] [place] [address] PHONE: [phone] FAX: [phone] Name .................. : CAESAR Turcios Acct Number.................. : [id number] ROOM. ................. : 109-1 MR Number ................... : [id number] Stay type ............. : O/P Discharge Date......... ... : Admit Date ......... : 08/02/19 Admit Phys .................... : RANDI Date of ....... : 1975 Family Phys ................... : MONE FARAH Phone .................. : [phone] Age ................................ : 43 Film# .................. .:[id number] Sex ................................. : F Unsigned transcriptions are preliminary reports and do not represent a medical or legal document [place] [id number] COMPLETE:08/03/19 17:31 GSP [id number] (REASON FOR PROCESS: PAIN LEFT UPPER EXTREMITY VENOUS DOPPLER ULTRASOUND: FINDINGS: The left internal jugular vein, left subclavian vein, left axillary vein, left cephalic vein, left brachial vein and left basilic vein are patent with normal intraluminal color Doppler flow. IMPRESSION: Left upper extremity DVT not identified. Electronically Reviewed and Signed By Kristopher Norton MD , 08/06/19 10:09, KGG Transcribe Initials: DZ , Transcribe Date: 08/03/19 18:11, Dictation Date: Copy for: RANDY Foley via fax Copy for: BENNIE ROSARIO via modem Copy for: EMERGENC Y DEPT via modem Copy for: 710 MED REC DISCHARGED Page 1 of 1 Name Value Range Interpretation Code Description Data Emily rce(s) Supporting Document(s) ID Date Data Source [id number] 08/04/2019 12:52:00 [place] [address] RESPIRATORY CARE REPORT ==== ---------NAME------- NUMBER SEX AGE ADMIT DISC. XRAY# F/C TYPEGRSHANICE Turcios [id number] F 43 08/02/19 08/04/19852958 X6B O/P DATE OF : 1975 M/R# [id number] #: [id number] [id number] LOCATION: EMERGENCY DEPT EKG 98724 COMP LETE:08/03/19 09:45 CJM [id number] PHYSICIAN: RANDI Name Value Range Interpretation Code Description Data Emily rce(s) Supporting Document(s) ID Date Data Source [id number] 08/04/2019 12:51:00 PM EDT [facility] [address] [place] [address] RESPIRATORY CARE REPORT ==== ---------NAME------- NUMBER SEX AGE ADMIT DISC. XRAY# F/C TYPEGRUBBS PRISCILLA L [id number] F 43 08/02/19 08/04/19 256481 X6B O/P DATE OF : 1975 M/R# [id number] #: [id number] 109-1 LOCATION: EMERGENCY DEPT EKG 52325 COMP LETE:08/03/19 09:45 CJM 96802 PHYSICIAN: RANDI STEVENS Name Value Range Interpretation Code Description Data Emily rce(s) Supporting Document(s) ID Date Data Source [id number] 08/04/2019 08:08:00 AM EDT [facility] Name Value Range Interpretation Code Description Data Emily rce(s) Supporting Document(s) TROPONIN T 0.01 NG/ML 0.00 - 0.10 [facility] spital TROPONIN T0.1 ng/ml Recommended as the c linical threshold value forTroponin T. ID Date Data Source [id number] 08/04/2019 08:07:00 AM EDT [facility] Name Value Range Interpretation Code Description Data Emily rce(s) Supporting Document(s) COMPREHENSIVE METABOLIC PANEL [facility] COMPREHENSIVE METABOLIC PANEL Sodium [Moles/volume] in Serum or Plasma 143 mEq/L 134 - 153 [facility] Potassium [Moles/volume] in Serum or Plasma 3.8 mEq/L 3.6 - 5.0 [facility] Chloride [Moles/volume] in Serum or Plasma 109 mEq/L 98 - 107 H [facility] Carbon dioxide, total [Moles/volume] in Serum or Plasma 25 MEQ/L 22 - 30 [facility] Glucose [Mass/volume] in Serum or Plasma 89 MG/DL 65 - 110 [facility] BUN 11 MG/DL 7 - 21 [facility] Creatinine [Mass/volume] in Serum or Plasma 0.7 MG/DL 0.7 - 1.5 [facility] BUN/CREAT 16 8 - 27 [facility] al Protein [Mass/volume] in Serum or Plasma 6.4 G/DL 6.3 - 8.2 [facility] Albumin [Mass/volume] in Serum or Plasma 3.8 G/DL 3.9 - 5.0 L [facility] Globulin [Mass/volume] in Serum by calculation 2.6 GM/DL 2.4 - 3.2 [facility] A/G RATIO 1.5 0.8 - 2.0 [facility] Calcium [Mass/volume] in Serum or Plasma 9.1 MG/DL 8.4 - 10.2 [facility] Bilirubin.total [Mass/volume] in Serum or Plasma <0.7 MG/DL 0.2 - 1.3 [facility] Alkaline phosphatase [Enzymatic activity/volume] in Serum or Plasma 76 U/L 38 - 126 [facility] Aspartate aminotransferase [Enzymatic activity/volume] in Serum or Plasma 19 U/L 5 - 40 [facility] Alanine aminotransferase [Enzymatic activity/volume] in Seru m or Plasma 10 U/L 7 - 56 [facility] Anion gap 3 in Serum or Plasma 9.0 mmol/L 8.0 - 16.0 [facility] AGE 43 yrs [facility] al NON-AA GFR >60 mL/min [facility] ital AFR AMER GFR >60 mL/min [facility] Ho spital Male GFR In terprentation 20-49 yrs >60 mL/min Normal 50-59 yrs >56 mL/min Normal 60-69 yrs >49 mL/min Normal 70-79yrs >42 mL/min Normal 80 and above >35 mL/min Normal Female GFR Interpretation 20-39 yrs >60 mL/min Normal 40-49 yrs >58 mL/min Normal 50-59 yrs >51 mL/min Normal 60-69 yrs >45 mL/min Normal 70-79 yrs >39 mL/min Normal 80 and above >32 mL/min Normal ID Date Data Source [id number] 08/04/2019 07:24:00 AM EDT [facility] Name Value Range Interpretation Code Description Data Emily rce(s) Supporting Document(s) CBC W/AUTOMATED DIFF [facility] COMPLETE BLOOD COUNT Leukocytes [#/volume] in Blood by Automated count 4.8 10^3/uL 4.2 - 1 1.0 [facility] Erythrocytes [#/volume] in Blood by Automated count 4.04 10^6/uL 4. 20 - 5.40 L [facility] Hemoglobin [Mass/volume] in Blood 12.2 g/dL 12.0 - 16.0 [facility] Hematocrit [Volume Fraction] of Blood by Automated count 38.1 % 3 7.0 - 47.0 [facility] Erythrocyte mean corpuscular volume [Entitic volume] by Auto mated count 94.3 fL 81.0 - 101 [facility] Erythrocyte mean corpuscular hemoglobin [Entitic mass] by Automated count 30.2 pg 27.0 - 34.0 [facility] Erythrocyte mean corpuscular hemoglobin concentration [Mass/volume] by Automated count 32.0 g/dL 31.0 - 36.0 [facility] Erythrocyte distribution width [Ratio] by Automated count 13.2 % 11.5 - 14.5 [facility] Platelets [#/volume] in Blood by Automated count 258 10^3/uL 150 - 45 0 [facility] Platelet mean volume [Entitic volume] in Blood by Automated count 9.5 fL 7.4 - 10.4 [facility] Neutrophils/100 leukocytes in Blood by Automated count 41.9 % 37. 0 - 80.0 [facility] Lymphocytes/100 leukocytes in Blood by Manual count 45.1 % 25.0 - 40.0 H [facility] Monocytes/100 leukocytes in Blood by Automated count 8.5 % 3.0 - 8.0 H [facility] Eosinophils/100 leukocytes in Blood by Automated count 3.3 % 0.0 - 7.0 [facility] Basophils/100 leukocytes in Blood by Automated count 1.0 % 0.0 - 2.5 [facility] %IG 0.2 % 0.0 - 0.0 H [facility] Hospit al %NRBC 0.0 % 0.0 - 0.0 [facility] al Neutrophils [#/volume] in Blood by Automated count 2.02 10^3/uL 2.00 - 6.90 [facility] Lymphocytes [#/volume] in Blood by Automated count 2.18 10^3/uL 0.60 - 3.40 [facility] Monocytes [#/volume] in Blood by Automated count 0.41 10^3/uL 0.00 - 0.90 [facility] Eosinophils [#/volume] in Blood by Automated count 0.16 10^3/uL 0.00 - 0.70 [facility] Basophils [#/volume] in Blood by Automated count 0.05 10^3/uL 0.00 - 0.20 [facility] #IG 0.01 10^3/uL 0.00 - 0.10 [facility] H ospital #NRBC 0.00 10^3/uL 0.00 - 0.00 [facility] H ospital MANUAL DIFF NOT INDICATED [facility] RBC MORPH NOT INDICATED [facility] spital ID Date Data Source [id number] 08/04/2019 12:15:00 AM EDT [facility] Name Value Range Interpretation Code Description Data Emily rce(s) Supporting Document(s) HCG URINE QUAL NEGATIVE NORMAL: NEGATIVE [facility] HCG URINE QL REENTER NEGATIVE NORMAL: NEGATIVE [facility] { KIT LOT # [id number] ){ KIT EXP DATE 02-11-21 ){ PROCEDURAL CONTROL VALID ) ID Date Data Source [id number] 08/03/2019 01:01:00 PM EDT [facility] Name Value Range Interpretation Code Description Data Emily rce(s) Supporting Document(s) TROPONIN T 0.01 NG/ML 0.00 - 0.10 [facility] spital TROPONIN T0.1 ng/ml Recommended as the c linical threshold value forTroponin T. ID Date Data Source [id number] 08/03/2019 06:15:00 AM EDT [facility] Name Value Range Interpretation Code Description Data Emily rce(s) Supporting Document(s) CVE PANEL [facility] al LIPID PANEL Cholesterol [Mass/volume] in Serum or Plasma 182 MG/DL 131 - 200 [facility] Deprecated Triglyceride [Mass/volume] in Serum or Plasma 156 MG/DL 3 5 - 160 [facility] HDL 59 MG/DL 29 - 86 [facility] al Cholesterol in LDL/Cholesterol in HDL [Mass Ratio] in Serum or Plasma 111 mg/dL 65 - 175 [facility] Cholesterol.total/Cholesterol in HDL [Mass Ratio] in Serum o r Plasma 3.1 3.2 - 4.4 L [facility] LDL/HDL 1.88 1.47 - 3.22 [facility] ital CVE RISK CHOL/HDL LDL/HDLMEN: 1/2 AVERAGE 3.43 1.00 AVERAGE 4.97 3.55 2X AVERAGE 9.55 6.25 3X AVERAGE 23.99 7.99WOMEN: 1/2 AVERAGE 3.27 1.47 AVERAGE 4.44 3.22 2X AVERAGE 7.05 5.03 3X AVERAGE 11.04 6.14 ID Date Data Source [id number] 08/03/2019 06:15:00 AM EDT [facility] Name Value Range Interpretation Code Description Data Emily rce(s) Supporting Document(s) COMPREHENSIVE METABOLIC PANEL [facility] COMPREHENSIVE METABOLIC PANEL Sodium [Moles/volume] in Serum or Plasma 141 mEq/L 134 - 153 [facility] Potassium [Moles/volume] in Serum or Plasma 3.6 mEq/L 3.6 - 5.0 [facility] Chloride [Moles/volume] in Serum or Plasma 107 mEq/L 98 - 107 [facility] Carbon dioxide, total [Moles/volume] in Serum or Plasma 23 MEQ/L 22 - 30 [facility] Glucose [Mass/volume] in Serum or Plasma 96 MG/DL 65 - 110 [facility] BUN 16 MG/DL 7 - 21 [facility] al Creatinine [Mass/volume] in Serum or Plasma 0.8 MG/DL 0.7 - 1.5 [facility] BUN/CREAT 20 8 - 27 [facility] al Protein [Mass/volume] in Serum or Plasma 6.4 G/DL 6.3 - 8.2 [facility] Albumin [Mass/volume] in Serum or Plasma 4.0 G/DL 3.9 - 5.0 [facility] Globulin [Mass/volume] in Serum by calculation 2.4 GM/DL 2.4 - 3.2 [facility] A/G RATIO 1.7 0.8 - 2.0 [facility] Calcium [Mass/volume] in Serum or Plasma 8.8 MG/DL 8.4 - 10.2 [facility] Bilirubin.total [Mass/volume] in Serum or Plasma <0.7 MG/DL 0.2 - 1.3 [facility] Alkaline phosphatase [Enzymatic activity/volume] in Serum or Plasma 76 U/L 38 - 126 [facility] Aspartate aminotransferase [Enzymatic activity/volume] in Serum or Plasma 21 U/L 5 - 40 [facility] Alanine aminotransferase [Enzymatic activity/volume] in Seru m or Plasma 12 U/L 7 - 56 [facility] Anion gap 3 in Serum or Plasma 11.0 mmol/L 8.0 - 16.0 [facility] 43 [facility] G[facility] >60 mL/min [facility] ital AFR AMER GFR >60 mL/min [facility] spital Male GFR In terprentation 20-49 yrs >60 mL/min Normal 50-59 yrs >56 mL/min Normal 60-69 yrs >49 mL/min Normal 70-79yrs >42 mL/min Normal 80 and above >35 mL/min Normal Female GFR Interpretation 20-39 yrs >60 mL/min Normal 40-49 yrs >58 mL/min Normal 50-59 yrs >51 mL/min Normal 60-69 yrs >45 mL/min Normal 70-79 yrs >39 mL/min Normal 80 and above >32 mL/min Normal ID Date Data Source [id number] 08/03/2019 06:13:00 AM EDT [facility] Name Value Range Interpretation Code Description Data Emily rce(s) Supporting Document(s) TROPONIN T 0.01 NG/ML 0.00 - 0.10 [facility] spital TROPONIN T0.1 ng/ml Recommended as the c linical threshold value forTroponin T. ID Date Data Source [id number] 08/03/2019 05:50:00 AM EDT [facility] Name Value Range Interpretation Code Description Data Emily e(s) Supporting Document(s) Hemoglobin A1c/Hemoglobin.total in Blood 5.1 % 4.4 - 6.1 [facility] {A1]{HB] ID Date Data Source [id number] 08/03/2019 05:39:00 AM EDT [facility] Name Value Range Interpretation Code Description Data Emily rce(s) Supporting Document(s) CBC W/AUTOMATED DIFF [facility] COMPLETE BLOOD COUNT Leukocytes [#/volume] in Blood by Automated count 6.3 10^3/uL 4.2 - 1 1.0 [facility] Erythrocytes [#/volume] in Blood by Automated count 3.91 10^6/uL 4. 20 - 5.40 L [facility] Hemoglobin [Mass/volume] in Blood 12.0 g/dL 12.0 - 16.0 [facility] Hematocrit [Volume Fraction] of Blood by Automated count 36.9 % 3 7.0 - 47.0 L [facility] Erythrocyte mean corpuscular volume [Entitic volume] by Auto mated count 94.4 fL 81.0 - 101 [facility] Erythrocyte mean corpuscular hemoglobin [Entitic mass] by Automated count 30.7 pg 27.0 - 34.0 [facility] Erythrocyte mean corpuscular hemoglobin concentration [Mass/volume] by Automated count 32.5 g/dL 31.0 - 36.0 [facility] Erythrocyte distribution width [Ratio] by Automated count 13.5 % 11.5 - 14.5 [facility] Platelets [#/volume] in Blood by Automated count 264 10^3/uL 150 - 45 0 [facility] Platelet mean volume [Entitic volume] in Blood by Automated count 9.2 fL 7.4 - 10.4 [facility] Neutrophils/100 leukocytes in Blood by Automated count 47.8 % 37. 0 - 80.0 [facility] Lymphocytes/100 leukocytes in Blood by Manual count 41.5 % 25.0 - 40.0 H [facility] Monocytes/100 leukocytes in Blood by Automated count 7.7 % 3.0 - 8.0 [facility] Eosinophils/100 leukocytes in Blood by Automated count 2.2 % 0.0 - 7.0 [facility] Basophils/100 leukocytes in Blood by Automated count 0.5 % 0.0 - 2.5 [facility] %IG 0.3 % 0.0 - 0.0 H [facility] Hospit al %NRBC 0.0 % 0.0 - 0.0 [facility] al Neutrophils [#/volume] in Blood by Automated count 2.99 10^3/uL 2.00 - 6.90 [facility] Lymphocytes [#/volume] in Blood by Automated count 2.60 10^3/uL 0.60 - 3.40 [facility] Monocytes [#/volume] in Blood by Automated count 0.48 10^3/uL 0.00 - 0.90 [facility] Eosinophils [#/volume] in Blood by Automated count 0.14 10^3/uL 0.00 - 0.70 [facility] Basophils [#/volume] in Blood by Automated count 0.03 10^3/uL 0.00 - 0.20 [facility] #IG 0.02 10^3/uL 0.00 - 0.10 [facility] H ospital #NRBC 0.00 10^3/uL 0.00 - 0.00 [facility] H ospital MANUAL DIFF NOT INDICATED [facility] RBC MORPH NOT INDICATED [facility] spital ID Date Data Source [id number] 08/02/2019 08:59:00 PM EDT [facility] 1 OrderSheet [facility] Emergency Department [address] [place] [address] Phone #: ext- [phone] 08/02/2019 20:56 Patient: PRISCILLA MAYNARD Sex: F : 1975 Age: 43yWEIGHT:104.3 kg (S)ALLERGIES: Butrans, Cymbalta, Neurontin, NSAIDs, VioxxCHIEF COMPLAINT: chest pain, discomfortDIAGNOSIS: Chest painLAB ORDERSOrder Description Priority Entered Acknowledged InitialedCBC w Diff STAT 21:20 08/02/2019 21:21 Federico Abreu Riccardo Tiffany R.N. M.D.;CMP STAT 21:20 08/02/2019 21:21 Federico Abreu Riccardo Tiffany R.N. M.D.;Lipase STAT 21:08/02/2019 21:21 Federico Abreu Riccardo Tiffany R.N. M.D.;PT/PTT STAT 21:20 08/02/2019 21:21 Federico Abreu Riccardo Tiffany R.N. M.D.;Troponin-T STAT 21:08/02/2019 21:21 Federico Abreu Riccardo Tiffany R.N. M.D.;D-Dimer STAT 21:08/02/2019 21:21 Federico Abreu Riccardo Tiffany R.N. M.D.;DIAGNOSTIC STUDY ORDERSOrder Description Priority Entered [facility]ged [facility] STAT 21:20 08/02/2019 21:21 Junie Abreu Riccardo Tiffany R.N.(Oxygen?(No)) [facility]; Reason for Study: Chest PainCT CTA CHEST STAT 22:36 08/02/2019 Ack'd: 22:37 22:58 Sarah(NONCOR) Stefani Raymundo Tamra R.N. Walters RNINC PP [facility];(Oxygen?(No))(IV?(Yes)) Reason for Study: chest pain, left side, Hx of PE, on Xarelto 2 OrderSheet [facility] Emergency Department [address] [place] [address] Phone #: ext- [phone] 08/02/2019 20:56 [id number] Sex: F : 1975 Age: 43yMEDICATION/IV/DRIP/FLUID ORDERSOrder Description Priority Entered Acknowledged InitialedNitroGLYCERIN 21:21 08/02/2019 Ack'd: 21:42 22:00 CrystalTopical Ointment Stefani Caballero RN0.5 in. M.D.; RNPhenergan 12.5 mg 23:26 08/02/2019 23:35 CrystalIVP X1 dose: 12.5 Stefani Caballero RNmg (NOW x1, HIGH M.D.;ALERTMEDICATION)NS IV : 125 mL/hr 00:39 08/03/2019 Ack'd: 01:07 01:20 Crystal Stefani Caballero RN M.D.; RNGENERAL ORDERSOrder Description Priority Entered Acknowledged InitialedBlood Pressure 21:20 08/02/2019 21:21 Brady,Monitor Stefani Caballero R.N. M.D.;Allergy Specialist 21:20 08/02/2019 21:21 Brady(continuous) Stefani Caballero R.N. M.D.;EKG 21:20 08/02/2019 21:21 Federico Abreu Riccardo Tiffany R.N. M.D.;NPO 21:20 08/02/2019 21:21 Federico Abreu Riccardo Tiffany R.N. M.D.;Obtain Old EKG 21:20 08/02/2019 21:21 Federico Abreu Riccardo Tiffany R.N. M.D.;Obtain Old Records 21:20 08/02/2019 21:21 Federico Abreu Riccardo Tiffany R.N. M.D.;Oxygen titrate to 21:20 08/02/2019 21:21 Brady,92% Stefani Caballero R.N. M.D.;Pulse oximeter 21:20 08/02/2019 21:21 Brady(Continuous) tSefani Caballero.N. M.DGeorgina; 3 OrderSheet [facility] Emergency Department [address] [place] [address] Phone #: ext- [phone] 08/02/2019 20:56 Patient: PRISCILLA MAYNARD Sex: F : 1975 Age: 43ySaline Lock 21:20 08/02/2019 21:21 Federico Abreu Riccardo Tiffany R.N. M.D.;Vitals 21:20 08/02/2019 21:21 Federico Abreu Riccardo Tiffany R.N. M.D.;Consult - 00:39 08/03/2019 01:07 Stefani Peter RN, M.D.;[Electronically signed by Sarah Islas RN (02:39 08/03/2019)][Electronically signed by Stefani Caballero M.D. (05:23 08/03/2019)][Electronically locked by Sarah Islas RN (02:39 08/03/2019)] Name Value Range Interpretation Code Description Data Emily rce(s) Supporting Document(s) ID Date Data Source [id number] 08/02/2019 08:59:00 PM EDT [facility] 1 Medication Reconciliation Report [facility] Emergency Department [address] [place] [address] Phone #: ext- [phone] 08/02/2019 20:56 Patient: PRISCILLA MAYNARD Sex: F : 1975 Age: 43yWeight: 104.3 kgHeight/Length: 62 in.BMI: 42.1ALLERGIES: Butrans, Cymbalta, Neurontin, NSAIDs, VioxxThe patient's Home Medications are listed below:THE FOLLOWING MEDICATIONS NEED TO BE RECONCILED: Albuterol Sulfate HFA Inhalation (108 (90 Base) mcg/act), prn Atorvastatin Calcium Oral (20 mg) 1 tablet, daily Calcium 500+D Oral (500-400 mg-unit) 1 tablet, 2x a day Claritin Oral (10 mg), daily Lidoderm External (5 %) 1-3, daily Maxalt Oral (10 mg) 1 tablet, last dose: [id number] Omeprazole Oral 40 mg, 2x a day Topiramate Oral (100 mg) 1 tablet, 2x a day Venlafaxine HCl Oral (100 mg) 1 tablet, 3x a day Xarelto Oral (20 mg) 1 tablet, daily Zofran ODT Oral 4 mg, 4x a day, prnThe source(s) of the original Home Medication information:Not obtained.The following Medications were given to the patient in the Emergency Department:NITROGLYCERIN [TOPICAL OINTMENT] Topical 0.5 in., administered: 08/02/2019 9:45:00 PM 2 Medication Reconciliation Report [facility] Emergency Department [address] [place] [address] Phone #: ext- [phone] 08/02/2019 20:56 Patient: PRISCILLA MAYNARD Sex: F : 1975 Age: 43yPHENERGAN [IVP] IVP 12.5 mg, administered: 08/02/2019 11:30:00 PMNS [IV] IV Fluids bolus 0, then 125 mL/hr, administered: 08/03/2019 12:55:00 AMThe following Medications were prescribed to the patient:None. Name Value Range Interpretation Code Description Data Emily rce(s) Supporting Document(s) ID Date Data Source [id number] 08/02/2019 08:59:00 PM EDT [facility] 1 Medication Administration Record [facility] Emergency Department [address] [place] [address] Phone #: ext- [phone] 08/02/2019 20:56 Patient: PRISCILLA MAYNARD Sex: F : 1975 Age: 43yWeight: 104.3 kgHeight/Length: 62 inBMI: 42.1ALLERGIES: Cymbalta, Butrans, Neurontin, NSAIDs, Vioxx Date/Time Medication Administered Medication OrderedGiven NITROGLYCERIN [TOPICAL OINTMENT] NitroGLYCERIN Yvcuvej97:45 08/02/2019 Dose: 0.5 in. Ointment Topical Ointment 0.5 in.Sarah Islas RNGiven PHENERGAN [IVP] (PROMETHAZINE Phenergan 12.5 mg IVP X1 dose:23:30 08/02/2019 HCL) 12.5 mg (NOW x1, HIGH ALERTSarah Islas RN Dose: 12.5 mg IVP MEDICATION) Site: #1 left ACStart NS [IV] NS IV : 125 mL/hr00:55 08/03/2019 Dose: IV FluidsSarah Islas RN Rate: 125 mL/hr over 8 hour(s)---- Dispensed: 1000 mL bagStop Site: #1 left AC01:55 08/03/2019Sarah Islas RN Name Value Range Interpretation Code Description Data Emily rce(s) Supporting Document(s) ID Date Data Source [id number] 08/02/2019 08:59:00 PM EDT [facility] 1 General Instructions [facility] Emergency Department [address] [place] [address] Phone #: ext- [phone] 08/02/2019 20:56 Patient: PRISCILLA MAYNARD Sex: F : 1975 Age: 43yPrecordial chest pain characterized as "discomfort"(Rule out [place]).(Electronically signed by Stefani Caballero M.D. 08/03/2019 05:22) Name Value Range Interpretation Code Description Data Emily rce(s) Supporting Document(s) ID Date Data Source [id number] 08/02/2019 08:59:00 PM EDT [facility] 1 Clinical Report - Nurses [facility] Emergency Department [address] [place] [address] Phone #: ext- [phone] 08/02/2019 20:56 Patient: PRISCILLA MAYNARD Sex: F : 1975 Age: 43yTRIAGEArrived by private vehicle. Historian: patient. Unaccompanied.Acuity: LEVEL 3.Chief Complaint: CHEST PAIN.Alert. No acute distress.The patient has had nausea.SEPSIS SCREEN: NEGATIVE. Negative (no infection suspected/documented). --21:12 08/02/19 HUBER Muse20:58 08/02/19. BP: 110/66. MAP: 80. HR: 67. RR: 18. O2 saturation: 100% on room air. Temp: 98.1 F.Pain level now: 11/08. --21:12 08/02/19 Sarah Islas RN.Weight: 104.3 kg stated. Height/Length: 62 inches Per Patient. BMI: 42.1. --20:57 08/02/19 HUBER Muse.MedicationsLidoderm External (Patch 5 %) 1-3, daily. --21:35 08/02/19 Prudence Abreu R.N. Claritin Oral (Tablet 10 mg), daily. --21:35 08/02/19 Prudence Abreu R.N. Zofran ODT Oral 4 mg, 4x a day as needed. --21:35 08/02/19 Prudence Abreu R.N. Albuterol Sulfate HFA Inhalation (Aerosol Solution 108 (90 Base) mcg/act), as needed. --21:36 08/02/19Prudence Abreu R.N. Omeprazole Oral 40 mg, 2x a day. --21:36 08/02/19 Prudence Abreu R.N. Atorvastatin Calcium Oral (Tablet 20 mg) 1 tablet, daily. --21:36 08/02/19 Prudence Abreu R.N. Topiramate Oral (Tablet 100 mg) 1 tablet, 2x a day. --21:37 08/02/19 Prudence Abreu R.N. Xarelto Oral (Tablet 20 mg) 1 tablet, daily. --21:38 08/02/19 Prudence Abreu R.N. Venlafaxine HCl Oral (Tablet 100 mg) 1 tablet, 3x a day. --21:45 08/02/19 Sarah Islas RN Calcium 500+D Oral (Tablet 500-400 mg-unit) 1 tablet, 2x a day. --21:47 08/02/19 aSrah Islas RN Maxalt Oral (Tablet 10 mg) 1 tablet, last dose [id number]. --21:48 08/02/19 Sarah Isals RNThe following entry was struck by Sarah Islas RN, 21:49 (08/02/19) Reason - wrong value. Rivaroxaban Oral (Tablet 20 mg) 1 tablet, daily. --21:34 08/02/19 Prudence Abreu R.N.The following entry was struck by Sarah Islas RN, 21:46 (08/02/19) Reason - wrong value. Cyclobenzaprine HCl Oral (Tablet 5 mg) 1 tablet, as needed. --21:38 08/02/19 Prudence Abreu R.N.The following entry was struck by Sarah Islas RN, 21:45 (08/02/19) Reason - wrong value. Venlafaxine HCl ER Oral (Capsule Extended Release 24 Hour 75 mg) 300 mg, 3x a day. --21: Prudence Abreu R.N. .Allergies 2 Clinical Report - Nurses [facility] Emergency Department [address] [place] [address] Phone #: ext- [phone] 08/02/2019 20:56 Patient: PRISCILLA MAYNARD Sex: F : 1975 Age: 43yNSAIDs.(swelling) --21:04 08/02/19 Sarah Islas RNNeurontin.(confusion) --21:05 08/02/19 Sarah Islas RNButrans.(confusion, nausea) --21:05 08/02/19 Sarah Islas RNCymbalta. (HALLUCINATIONS) --21:06 08/02/19 Sarah Islas RNVioxx.(hives) --21:32 08/02/19 Prudence Abreu R.N.PROBLEMS:Diverticulosis.DVT - Deep Venous Thrombosis: (RLE).Obesity.Migraine Headache.Arthritis. --21:12 08/02/19 Sarah Islas RNPulmonary Embolism: Onset 2013. --21:29 08/02/19 Stefani Caballero M.D.The following entry was modified by Stefani Caballero M.D., 21:29 08/02/19Pulmonary Embolism. --21:08 08/02/19 Sarah Islas RN.ADDITIONAL SURGERIES:Gastric Resection.Hernia Repair.Partial h ysterectomy. --21:12 08/02/19 Sarah Islas RN.HistorySOCIAL HX: Never smoker. No alcohol use or drug use. She was offered HIV testing but declined andhepatitis C testing but declined. She has not traveled outside the [place]Infectious disease exposure: No infectious disease exposure.SELF HARM ASSESSMENT: Self harm assessment was performed. The patient answered "no" to thequestion(s) "Have you recently felt down, depressed, or hopeless?", "Do you have thoughts of harming orkilling yourself?", "Do you have a plan for harming or killing yourself?", "Have you recently had thoughtsabout harming or killing others?", "Do you have any dangerous items in your possession?", "Have younoticed less interest or pleasure in doing things?", "Are you here because you tried to hurt yourself?" and"Have you ever tried to hurt yourself before today?".ABUSE ASSESSMENT: Abuse assessment. The patient had positive responses to the question(s) "Do youfeel safe in your home?". No report of abuse.NUTRITIONAL RISK ASSESSMENT: The nutritional risk assessment revealed no deficiencies.FUNCTIONAL ASSESSMENT: Functional assessment: no impairments noted.LEARNING NEEDS ASSESSMENT: The learning needs assessment revealed no barriers.FALL RISK ASSESSMENT: Fall risk assessment completed. No risk factors identified. 3 Clinical Report - Nurses [facility] Emergency Department [address] [place] [address] Phone #: ext- [phone] 08/02/2019 20:56 Patient: PRISCILLA MAYNARD Sex: F : 1975 Age: 43y SKIN INTEGRITY ASSESSMENT: Skin integrity risk assessment completed. No skin integrity risk identified. --21:12 08/02/19 Sarah Islas RN.PHYSICAL ASSESSMENTTo room via stretcher.GENERAL / NEURO / PSYCH: Alert. Oriented X 4. Appears in no acute distress.HEENT: Mucous membranes are pink.RESPIRATORY: Respirations not labored. Chest nontender. Breath sounds within normal limits.CVS: Normal sinus rhythm noted. Pulses within normal limits. Capillary refill less than 2 seconds.GI / : Abdomen soft and nontender.EXTREMITIES: Limited ROM present in the left shoulder and left upper arm. No lower extremity edema.SKIN: Skin is warm and dry. Normal skin turgor. Skin tenderness is present. --21:44 08/02/19 HUBER Muse.NURSING PROGRESS NOTESMonitoring of patient in place. Patient gowned. Head of bed elevated. Reassurance given. Threepatient identifiers checked. Call light placed in reach. Side rails up x 2. Bed placed in lowest position.Brakes of bed on. Patient ready for evaluation. --21:13 08/02/19 Sarah Islas RN 21:36 08/02/2019 Two (2) unsuccessful IV access attempts including the right antecubital space and left antecubital space. Applied bandaid. --22:01 08/02/19 Sarah Islas RN 21:45 08/02/2019 NITROGLYCERIN Topical Ointment 1 inch given. Applied to the affected area. Allergies verified and confirmed 5 rights. Information reviewed with patient including reason for taking this medication, signs of allergic reaction and precautions. Verbalizes understanding. --22:00 08/02/19 Sarah Islas RN Correction. --02:22 08/03/19 Sarah Islas RN Patient transported to CT by wheelchair with statistical technician. --22:51 08/02/19 Sarah Islas RN 23:07 08/02/19. BP: 96/61. MAP: 72. HR: 71. RR: 17. O2 saturation: 99% on room air. Temp: 99.3 F. Pain level now: 10/10. ED physician notified. Additional comments: "it hurts when I breath", "I think my headache is 20 out of 10". --23:09 08/02/19 Sarah Islas RN 23:18 08/02/19. BP: 88/57. MAP: 67. HR: 76. --23:19 08/02/19 Francine Lu, R.NGeorgina ( Pt. complaining of lightheaded and headache, BP Low, Nitro paste removed and MD made aware). --23:20 08/02/19 Francine Lu RGeorginaN. 21:45 08/02/2019 NITROGLYCERIN Topical Ointment 0.5 inch given. Applied to the affected area. Allergies verified and confirmed 5 rights. Information reviewed with patient including reason for taking this medication, signs of allergic reaction and precautions. Verbalizes understanding. --02:22 08/03/19 Sarah Islas RN 4 Clinical Report - Nurses [facility] Emergency Department [address] [place] [address] Phone #: ext- [phone] 08/02/2019 20:56 Patient: PRISCILLA MAYNARD Sex: F : 1975 Age: 43y22:41 08/02/2019 Site #1 started via IV in the left antecubital space with an 20g angiocath, with aseptictechnique and good blood return; one attempt. Saline lock flushed with 10 mL saline (by Moses Lu RN).--22:51 08/02/19 Sarah Islas RN22:57 08/02/19. Patient returned from CT by wheelchair with statistical technician. --23:07 08/02/19 HUBER Muse23:25 08/02/2019 NITROGLYCERIN Topical Response. ED physician notified (Pt c/o headache and SBP<100). --:08/03/19 Sarah Islas RN23:30 08/02/2019 PHENERGAN (Promethazine HCl) IVP 12.5 mg given over 2 minute(s) via site #1.Allergies verified and confirmed 5 rights. IV patency established. IV site checked: no pain, redness, orswelling. IV flushed thoroughly pre- and post-medication administration. IVP given by RN. Informationreviewed with patient including reason for taking this medication, signs of allergic reaction, precautions andsedative warning. Verbalizes understanding. --23:35 08/02/19 Sarah Islas RN23:45 08/02/2019 PHENERGAN IVP Response: no adverse reaction symptoms have improved the patientfeels better. --02:25 08/03/19 Sarah Islas RN00:55 08/03/2019 Started bag #1 1000 mL IV Fluids NS; at 125 mL/hr over 8 hour(s) via site #1 via IVpump. Allergies verified and confirmed 5 rights. IV patency established. IV site checked: no pain, redness,or swelling. IV flushed thoroughly pre- and post-medication administration. Information reviewed withpatient including reason for taking this medication, signs of allergic reaction and precautions. Verbalizesunderstanding. --01:20 08/03/19 Sarah Islas, RN01:45 08/03/2019 Site #[address] upon admission; patent, no pain and no signs of infection or infiltration.Good blood return present. Converted to saline lock and flushed with 10 mL saline; flushes easily. --02: Sarah Islas, RN01:55 08/03/2019 IV Fluids NS via IV site #1 Discontinued: bag #1 discontinued upon a dmission. Totalamount infused: 125 mL. IV patency established. IV site checked: no pain, redness, or swelling. IV flushedthoroughly. --02:21 08/03/19 Sarah Islas RN00:07 08/03/19. BP: 100/50. MAP: 66. HR: 66. RR: 24. O2 saturation: 97%. Pain level now: 09/08.--02:34 08/03/19 Sarah Islas, RN00:34 08/03/19. BP: 114/78. MAP: 90. HR: 68. RR: 26. O2 saturation: 97% on room air. --02:34 08/03/19Sarah Islas RN01:00 08/03/19. BP: 108/68. MAP: 81. HR: 69. RR: 24. O2 saturation: 97%. Temp: 99 F. --02:35 08/03/19Sarah Islas RN21:36 08/02/19. BP: 106/68. MAP: 80. HR: 76. RR: 22. O2 saturation: 100%. --02:37 08/03/19 HUBER Muse 5 Clinical Report - Nurses [facility] Emergency Department [address] [place] [address] Phone #: ext- [phone] 08/02/2019 20:56 [id number] Sex[facility] F : 1975 Age: 43y 22:00 08/02/19. BP: 108/67. MAP: 80. HR: 76. RR: 26. O2 saturation: 99%. --02:38 08/03/19 Sarah Islas RN 22:38 08/02/19. BP: 98/68. MAP: 78. HR: 69. RR: 24. O2 saturation: 98%. --02:39 08/03/19 Sarah Islas RN.DISPOSITION / DI SCHARGE Disposition: observation in the Acute Inpatient Unit, Monitored for cardiac monitoring. Transported via stretcher by nurse with monitor and IV. Bed obtained and ready. Patient's personal items; items were transported with the patient. --01:08/03/19 Sarah Islas RN 01:25 08/03/19. BP: 105/65. MAP: 78. HR: 72. RR: 26. O2 saturation: 99% on room air. Temp: 99 F (oral). Pain level now: 11/08. --01:26 08/03/19 Sarah Islas RN Departure time: 01:50 08/03/2019. Report was given to a nurse via a fax, sent to unit printer and visit overview, in person and at bedside. Report included information regarding patient's care, treatment, allergies and condition including: recent changes, current vital signs and labs. Report included treatment information regarding medications given or pending and home medications; type and amount of IV fluids. All questions were answered. Care was transferred. (to Lacey Casey RN). --02:26 08/03/19 Sarah Islas RN late entry - 01:55 08/03/19. Report was given. ( included in bedside report that patient had been mildly symptomatic ( runny nose, cough,congestion) she had been tested for Covid-19 largely due to her co- worker testing positive. Rec'd notice of negative result on July 28.). --02:30 08/03/19 Sarah Islas RN.Locked/Released at 08/03/2019 02:39 by Sarah Islas RN Name Value Range Interpretation Code Description Data Emily rce(s) Supporting Document(s) ID Date Data Source [id number] 08/02/2019 08:59:00 PM EDT [facility] 1 Clinical Report - Physicians/Mid Levels [facility] Emergency Department [address] [place] [address] Phone #: ext- [phone] 08/02/2019 20:56 Patient: PRISCILLA MAYNARD Sex: F : 1975 Age: 43y Time Seen: 21:13 08/02/2019; initial patient contact. Arrived- By ambulance. Historian- patient. Disposition decision: 00:38 08/03/2019.HISTORY OF PRESENT ILLNESS Chief Complaint: CHEST PAIN and DISCOMFORT. It is described as aching and sharp and it is described as located in the left chest area and left shoulder and arm and radiating to the left arm. This started 3.5 hours ago and is now gone. Onset during rest. At its maximum, severity described as severe and 8 / 10. When seen in the E.D., it was gone. Modifying factors- relieved by nitroglycerin (one, given by paramedics). Not worsened by anything. No nausea, vomiting or difficulty breathing. She has experienced diaphoresis. (pt started w left arm pain then left sided chest pain 3.5 hrs MANAGER SWITCH, lasted 30-40 minutes, resolved w NTG x 1 by EMS). Similar symptoms previously. Patient has had similar symptoms occasionally. ( last time 1 yr ago, no stress test or echo or cardiology; was told it was anxiety). Recent medical care: The patient was seen recently in a clinic. ( MANAGER SWITCH, sent to ER for eval.).REVIEW OF SYSTEMSNo fever, chills, cough, pedal edema or calf pain. No fainting episodes, headache, sore throat, blurredvision or abdominal pain. No black stools, difficulty with urination, skin rash, enlarged lymph nodes or jointpain. No bloody stools. All other systems reviewed and are negative.PAST HISTORYSee nurses notes. Problems: Gastroesophageal Reflux Disease. Suicide Attempt. Depression. Pulmonary Embolism. Diverticulosis. DVT - Deep Venous Thrombosis. Migraine Headache. Obesity. Arthritis. Additional Surgeries: Gastric Resection. Hernia Repair. 2 Clinical Report - Physicians/Mid Levels [facility] Emergency Department [address] [place] [address] Phone #: ext- [phone] 08/02/2019 20:56 Patient: PRISCILLA MAYNARD Sex: F : 1975 Age: 43y Partial hysterectomy. Medications: Xarelto Oral (Tablet 20 mg) 1 tablet, daily. Cyclobenzaprine HCl Oral (Tablet 5 mg) 1 tablet, as needed. Topiramate Oral (Tablet 100 mg) 1 tablet, 2x a day. Venlafaxine HCl ER Oral (Capsule Extended Release 24 Hour 75 mg) 300 mg, 3x a day. Atorvastatin Calcium Oral (Tablet 20 mg) 1 tablet, daily. Omeprazole Oral 40 mg, 2x a day. Albuterol Sulfate HFA Inhalation (Aerosol Solution 108 (90 Base) mcg/act), as needed. Zofran ODT Oral 4 mg, 4x a day as needed. Claritin Oral (Tablet 10 mg), daily. Lidoderm External (Patch 5 %) 1-3, daily. Rivaroxaban Oral (Tablet 20 mg) 1 tablet, daily. Allergies: Butrans.(confusion, nausea) Cymbalta. (ZAYAS UCINATIONS) Neurontin.(confusion) NSAIDs.(swelling) Vioxx.(hives).SOCIAL HISTORYNever smoker. No alcohol use or drug use.ADDITIONAL NOTESThe nursing notes have been reviewed with agreement regarding the chief complaint, HPI, ROS, PMH andpatient medications and allergies.PHYSICAL EXAMVital Signs: 08/02/2019 20:58 BP: 110/66. MAP: 80. HR: 67. RR: 18. O2 saturation: 100% on room air.Temp: 98.1 F. Pain level now: 11/08. Have been reviewed. Oxygen saturation normal.Appearance: Alert. Oriented X3. No acute distress.Eyes: Pupils equal, round and reactive to light. Eyes normal inspection.ENT: Ears normal. Nose normal. Pharynx normal.Neck: Normal inspection. Neck supple.CVS: Normal heart rate and rhythm. Heart sounds normal. Pulses normal.Respiratory: No respiratory distress. Painless inspiration. Breath sounds normal. Chest nontender.Abdomen: Soft and nontender. Bowel sounds normal. No organomegaly. No mass. Femoral pulsesequal. Mildly obese.Back: Normal external inspection.Skin: Skin warm and dry. Normal skin color. No rash. Normal skin turgor.Extremities: Extremities exhibit normal ROM. No lower extremity edema. (mild tenderness left lateralhumerus to minimal palpation, no rash, no swelling, neurovascular intact, ROM nml).Neuro: Oriented X 3. No motor deficit. No sensory deficit. Reflexes normal. 3 Clinical Report - Physicians/Mid Levels [facility] Emergency Department [address] [place] [address] Phone #: ext- [phone] 08/02/2019 20:56 -------- Patient: PRISCILLA MAYNARD Sex: F : 1975 Age: 43yLABS, X-RAYS, AND EKGEKG: No acute process. No acute ischemia. Normal EKG. Normal sinus rhythm. Rate: 68/min.Normal ST and T waves. Prior EKG unavailable. The study has been interpreted contemporaneously byme. The EKG appears to be a good tracing. Interpretation time: 21:07 08/02/2019.Chest X-ray: No acute disease. Views: AP (portable). The X-rays were interpreted by the radiologist.Interpretation time: 21:47 08/02/2019.CTA Pulmonary Arteries: REPORT SUBMISSION DATE: Aug 02, 2019 11:17:25 PM EDT NAME: PRISCILLA MAYNARD STUDY INITIATED: Aug 02, 2019 10:47:56 PM EDT STUDY RECEIVED: Aug 02, 2019 11:13:26 PM EDT GENDER: F MODALITY TYPE: CT : 73 DESCRIPTION: CT CTA CHEST NON-CORONARY W CON INC PP INSTITUTION: [facility] ORDERING PHYSICIAN: Stefani Caballero PATIENT HISTORY: chest pain, left side, Hx of PE, on Xarelto ACC DLP- 782.3mGy*cm PT HX OF HYSTERECTOMY. VERIFIED 2 IDENTIFIERS. TIME OUT PERFORMED. ISOVUE 370 USED 75ML, LOT [id number], EXP JAN 2022. BUN 16, CREATININE 0.9, GFR >60. KJE (Hx) / SAGITTAL (DICOM Hx) CTA CHEST WITH CONTRAST COMPARISON: None HISTORY: TECHNIQUE: CT an giographic images through the chest obtained with intravenous contrast. FINDINGS: Lung bases are clear. Heart size is normal. There is no evidence of pulmonary embolus. No thoracic aortic dissection. No mediastinal lymphadenopathy. There is minimal scarring/atelectasis in the lingula. No pneumothorax or pleural effusion. Limited images of the upper abdomen show no acute abnormality. Mild degenerative changes of the bones. Impression 4 Clinical Report - Physicians/Mid Levels [facility] Emergency Department [address] [place] [address] Phone #: ext- [phone] 08/02/2019 20:56 Patient: PRISCILLA MAYNARD Sex: F : 1975 Age: 43yNo evidence of pulmonary embolus.Electronically signed on Aug 02, 2019 11:17:25 PM EDT by:Mo Reddy, [employer]. The CTA was performed with contrast. The study wasinterpreted by the radiologist.Laboratory Tests: Laboratory tests have been ordered, with results reviewed and considered in themedical decision making process.CT CTA CHEST NON-CORONARY W CON INC PP: (COCO: 08/02/2019 22:36) ( MsgRcvd 08/02/2019 23:18)Final results Test Result Flag Units (Reference) CT CTA CHEST NON-CORONARY W [facility] [address] [place] [address] ---------NAME--------- NUMBER SEX AGE ADMIT DISC. XRAY# F/C TYPE CAESAR Turcios [id number] F 43 08/02/19 X6B E/R DATE OF : 1975 M/R# [id number] #: [id number] TR-03 LOCATION: EMERGENCY DEPT TRANSCRIBED: 08/02/19 23:[address] CTA CHEST NON-CORONARY W [id number] COMPLETED:08/02/19 23:02 KJE [id number] Reason(s): chest pain, left side, Hx of PE, on Xarelto -- PHYSICIAN: FEDERICO STEVENS -- -- R A D I O L O G Y R E P O R T -- PATIENT HISTORY: chest pain, left side, Hx of PE, on Xarelto ACC DLP- 782.3mGy*cm -- PT HX OF HYSTERECTOMY. VERIFIED 2 IDENTIFIERS. TIME OUT PERFORMED. ISOVUE 370 USED 75ML, LOT [id number], EXP JAN 2022. BUN 16, CREATININE 0.9, GFR >60. KJE / SAGITTAL (DICOM Hx) CTA CHEST WITH CONTRAST -- COMPARISON: None -- -- HISTORY: -- -- TECHNIQUE: -- CT angiographic images through the chest obtained with intravenous contrast. -- -- FINDINGS: -- Lung bases are clear. Heart size is normal. There is no evidence of pulmonary embolus. No thoracic aortic dissection. No mediastinal lymphadenopathy. There is minimal scarring/atelectasis in the lingula. No pneumothorax or pleural -- effusion. Limited images of the upper abdomen show no acute abnormality. Mild degenerative changes of the bones. -- -- IMPRESSIONS: -- No evidence of pulmonary embolus. -- While performing the above CT examination, radiation dose reduction was accomplished utilizing automated exposure control, adjusting of the mA and kV based on the patient's body size and/or the use of imperative reconstructive -- techniques. -- -- 5 Clinical Report - Physicians/Mid Levels [facility] Emergency Department [address] [place] [address] Phone #: ext- [phone] 08/02/2019 20:56 Patient: PRISCILLA MAYNARD Sex: F : 1975 Age: 43y -- Electronically Signed By: Yonas Rivera M.D. , Radiologist Date/Time: 08/02/19 23:17CBC w Diff: (COCO: 08/02/2019 21:28) ( MsgRcvd 08/02/2019 21:38) Final results Test Result Flag Units (Reference) CBC W/AUTOMATED DIFF COMPLETE BLOOD COUNT WBC 6.6 10/uL (4.2 - 11.0) RBC 4.15 L 10/uL (4.20 - 5.40) HEMOGLOBIN 12.5 g/dL (12.0 - 16.0) HEMATOCRIT 39.4 % (37.0 - 47.0) MCV 94.9 fL (81.0 - 101) MCH 30.1 pg (27.0 - 34.0) MCHC 31.7 g/dL (31.0 - 36.0) RDW 13.5 % (11.5 - 14.5) PLATELETS 305 10/uL (150 - 450) MPV 9.3 fL (7.4 - 10.4) NEUT 51.6 % (37.0 - 80.0) LYMPH 38.2 % (25.0 - 40.0) MONO 7.1 % (3.0 - 8.0) EOS 2.0 % (0.0 - 7.0) BASO 0.8 % (0.0 - 2.5) %IG 0.3 H % (0.0 - 0.0) %NRBC 0.0 % (0.0 - 0.0) #NEUT 3.42 10/uL (2.00 - 6.90) #LYMPH 2.53 10/uL (0.60 - 3.40) #MONO 0.47 10/uL (0.00 - 0.90) #EOS 0.13 10/uL (0.00 - 0.70) #BASO 0.05 10/uL (0.00 - 0.20) #IG 0.02 10/uL (0.00 - 0.10) #NRBC 0.00 10/uL (0.00 - 0.00) MANUAL DIFF NOT INDICATED RBC MORPH NOT INDICATEDCMP: (COCO: 08/02/2019 21:28) ( MsgRcvd 08/02/2019 21:53) Final results Test Result Flag Units (Reference) COMPREHENSIVE METABOLIC PANEL COMPREHENSIVE METABOLIC PANEL SODIUM 141 mEq/L (134 - 153) POTASSIUM 4.1 mEq/L (3.6 - 5.0) CHLORIDE 105 mEq/L (98 - 107) CO2 25 MEQ/L (22 - 30) GLUCOSE 96 MG/DL (65 - 110) BUN 16 MG/DL (7 - 21) CREATININE 0.9 MG/DL (0.7 - 1.5) BUN/CREAT 18 (8 - 27) TOTAL PROTEIN 7.1 G/DL (6.3 - 8.2) ALBUMIN 4.3 G/DL (3.9 - 5.0) GLOBULIN 2.8 GM/DL (2.4 - 3.2) A/G RATIO 1.5 (0.8 - 2.0) CALCIUM 9.3 MG/DL (8.4 - 10.2) TOTAL BILI <0.7 MG/DL (0.2 - 1.3) ALKALINE PHOS 85 U/L (38 - 126) SGOT/AST 25 U/L (5 - 40) SGPT/ALT 13 U/L (7 - 56) ANION GAP 11.0 mmol/L (8.0 - 16.0) AGE 43 yrs NON- AA GFR >60 mL/min AFR AMER GFR >60 mL/min Male GFR Interprentation 20-49 yrs >60 mL/min Wbdluv06-73 yrs >56 mL/min Normal 60- 69 yrs >49 mL/min Normal 70-79yrs>42 mL/min Normal 80 and above >35 mL/min Normal Female GFRInterpretation 20-39 yrs >60 mL/min Normal 40-49 yrs >58 mL/minNormal 50-59 yrs >51 mL/min Normal 60-69 yrs >45 mL/min Normal 6 Clinical Report - Physicians/Mid Levels [facility] Emergency Department [address] [place] [address] Phone #: ext- [phone] 08/02/2019 20:56 Patient: PRISCILLA MAYNARD Sex: F : 1975 Age: 36a99-48 yrs >39 mL/min Normal 80 and above >32 mL/min NormalLipase: (COCO: 08/02/2019 21:28) ( MsgRcvd 08/02/2019 21:53) Final results Test Result Flag Units (Reference) LIPASE 25 U/L (13 - 60)PT/PTT: (COCO: 08/02/2019 21:28) ( MsgRcvd 08/02/2019 21:56) Final results Test Result Flag Units (Reference) PROTIME 15.6 H SECONDS (11.0 - 15.5) INR 1.22 (0.93 - 1.23) PTT 35.1 SECONDS (24.8 - 36.7) \\BLDo\\INR INTERPRETATION\\BLDx\\ Therapeutic range for Coumadin andrelated oral anticoagulants. -International Normalized Ratio (INR): 2.0 - 3.0 for VenousThrombosis, Pulmonary Embolus, Tissue heart valves, Acute MN Atrial Fibrillation, Valvular heart diseaseand recurrent Systemic Embolism. -International Normalized Ratio (INR): 2.5 - 3.5 forMechanical Prosthetic valve. \\BLDo\\PTT INTERPRETATION\\BLDx\\Critical results for patients not on therapy: >50 seconds Critical results for patients on therapy:>119 seconds Therapeutic range for patients on therapy: 58 - 90 seconds Coag studies fromline draws may not be accurate due to Heparin and other interferences.Troponin-T: (COCO: 08/02/2019 21:28) ( [facility] 08/02/2019 21:56) Final results Test Result Flag Units (Reference) TROPONIN T 0.01 NG/ML (0.00 - 0.10) TROPONIN T0.1 ng/ml Recommended as the clinical threshold value forTroponin T.D-Dimer: (COCO: 08/02/2019 21:28) ( [facility] 08/02/2019 21:56) Final results Test Result Flag Units (Reference) D-DIMER QUANT 0.55 H ug/mL (0.27 - 0.50)Chest Portable 1 View: (COCO: 08/02/2019 21:20) ( [facility] 08/02/2019 21:45) In Progress Exam CHEST PORTABLE [facility] [address] [place] [address] PHONE: [phone] FAX: [phone] Name .................. : CAESAR PRISCILLA Karolina Acct Number.................. : [id number] ROOM. ................. : TR-03 MR Number ................... : [id number] Stay type ............. : E/R Discharge Date......... ... : Admit Date ......... : 08/02/19 Admit Phys .................... : FEDERICO STEVENS Date of ....... : 1975 Family Phys ................... : SHORE MAR Phone .................. : [phone] Age ........................ ........ : 43 Film# .................. .:[id number] Sex ................................. : F Unsigned transcriptions are preliminary reports and do not represent a medical or legal document CHEST PORTABLE [id number] COMPLETE:08/02/19 21:20 [id number] Reason(s): Chest Pain PORTABLE CHEST X- RAY: COMPARISON: None available. FINDINGS: There is no acute consolidation or congestive heart failure. The heart is not enlarged. There is no hilar adenopathy. IMPRESSION: No evidence of significant acute pulmonary disease. 7 Clinical Report - Physicians/Mid Levels [facility] Emergency Department [address] [place] [address] Phone #: [phone] 08/02/2019 20:56 Patient: PRISCILLA MAYNARD Sex: F : 1975 Age: 43y Electronically Reviewed and Signed By RINA FLORES AML Transcribe Initials: JEREMIAS , Transcribe Date: 08/02/19 21:43, Dictation Date: <<REPDIST>> Page 1 of 1.PROGRESS AND PROCEDURESCourse of Care: 00:30 08/03/19. workup all in and was reviewed, d- dimer slightly high so CTA chest wasdone and it was negative for PE; pt is pain free here, feeling better; pt had CP's in the past, last time 1 yearago, and was told it was anxiety; no stress test, no echocardiogram done; will admit overnight to r/o MN;case discussed w Humaira Antony, [employer] hospitalist, who agrees. Critical care performed (60 minutes). Time is exclusive of separately billable procedures. Time includes: direct patient care, patient reassessment, interpretation of data (laboratory data and chest xrays), medical consultation and documentation of patient care- see progress notes. Patient counseled in person regarding the patient's stable condition, test results, diagnosis and need for admission. Patient agrees with plan of care. Disposition: Condition: good and stable. Admit decision based on need for further evaluation, additional testing, monitoring, telemetry, observation, IV therapy and medications, pain control and stabilization of condition.CLINICAL IMPRESSION Precordial chest pain characterized as "discomfort"(Rule out MN).(Electronically signed by Stefani Caballero M.D. 08/03/2019 05:22) Name Value Range Interpretation Code Description Data Emily rce(s) Supporting Document(s) ID Date Data Source [id number] 08/02/2019 11:17:00 PM EDT [facility] [address] [place] [address] ---------NAME--------- NUMBER SEX AGE ADMIT DISC. XRAY# F/C TYPE CAESAR Turcios [id number] F [id number] 08/02/[id number] X6B E/R DATE OF : 1975 M/R# [id number] #: [id number] TR-03 LOCATION: EMERGENCY DEPT TRANSCRIBED: 08/02/19 23:[address] CTA CHEST NON-CORONARY W [id number] COMPLETED:08/02/19 23:02 KJE [id number] Reason(s): chest pain, left side, Hx of PE, on Xarelto PHYSICIAN: FEDERICO RODNEY == R A D I O L O G Y R E P O R T PATIENT HISTORY:chest pain, left side, Hx of PE, on Xarelto ACC DLP- 782.3mGy*cmPT HX OF HYSTERECTOMY. VERIFIED 2 IDENTIFIERS. TIME OUT PERFORMED. ISOVUE 370USED 75ML, LOT [id number], EXP JAN 2022. BUN 16, CREATININE 0.9, GFR >60. KJE /SAGITTAL (DICOM Hx)CTA CHEST WITH CONTRASTCOMPARISON: NoneHISTORY:TECHNIQUE:CT angiographic images through the chest obtained with intravenous contrast.FINDINGS:Lung bases are clear. Heart size is normal.There is no evidence of pulmonary embolus.No thoracic aortic dissection.No mediastinal lymphadenopathy.There is minimal scarring/atelectasis in the lingula. No pneumothorax or pleuraleffusion.Limited images of the upper abdomen show no acute abnormality.Mild degenerative changes of the bones .IMPRESSIONS:No evidence of pulmonary embolus.While performing the above CT examination, radiation dose reduction wasaccomplished utilizing automated exposure control, adjusting of the mA and kVbased on the patient's body size and/or the use of imperative reconstructivetechniques.Electronically Signed By:Yonas Rivera M.D. , RadiologistDate/Time: 08/02/19 23:17 Name Value Range Interpretation Code Description Data Emily rce(s) Supporting Document(s) ID Date Data Source [id number] 08/02/2019 09:56:00 PM T [facility] Name Value Range Interpretation Code Description Data [facility] rce(s) Supporting Document(s) TROPONIN T 0.01 NG/ML 0.00 - 0.10 [facility] spital TROPONIN T0.1 ng/ml Recommended as the c linical threshold value forTroponin T. ID Date Data Source [id number] 08/02/2019 09:56:00 PM EDT [facility] Name Value Range Interpretation Code Description Data [facility] rce(s) Supporting Document(s) Fibrin D-dimer FEU [Mass/volume] in Platelet poor plasma 0.55 ug /mL 0.27 - 0.50 H [facility] ID Date Data Source [id number] 08/02/2019 09:55:00 PM [facility] Name Value Range Interpretation Code Description Data [facility] rce(s) Supporting Document(s) Prothrombin time (PT) 15.6 SECONDS 11.0 - 15.5 [facility] INR in Platelet poor plasma by Coagulation assay 1.22 0.93 - 1. 23 [facility] aPTT in Blood by Coagulation assay 35.1 SECONDS 24.8 - 36.7 [facility] \\BLDo\\INR INTERPRETATION\\BLDx\\ Therapeutic range for Coumadin and related oral anticoagulants. - International Normalized Ratio (INR): 2.0 - 3.0 for Venous Thrombosis, Pulmonary Embolus, Tissue heart valves, Acute MN Atrial Fibrillation, Valvular heart disease and recurrent Systemic Embolism. - International Normalized Ratio (INR): 2.5 - 3.5 for Mechanical Prosthetic valve. \\BLDo\\PTT INTERPRETATION\\BLDx\\ Critical results for patients not on therapy: >50 seconds Critical results for patients on therapy: >119 seconds Therapeutic range for patients on therapy: 58 - 90 seconds Coag jose luis dies from line draws may not be accurate due to Heparin and other interferences. ID Date Data Source [id number] 08/02/2019 09:53:00 PM T [facility] Name Value Range Interpretation Code Description Data [facility] rce(s) Supporting Document(s) Lipase [Enzymatic activity/volume] in Serum or Plasma 25 U/L 13 - 60 [facility] ID Date Data Source [id number] 08/02/2019 09:53:00 PM EDT [facility] Name Value Range Interpretation Code Description Data Emily rce(s) Supporting Document(s) COMPREHENSIVE METABOLIC PANEL [facility] COMPREHENSIVE METABOLIC PANEL Sodium [Moles/volume] in Serum or Plasma 141 mEq/L 134 - 153 [facility] Potassium [Moles/volume] in Serum or Plasma 4.1 mEq/L 3.6 - 5.0 [facility] Chloride [Moles/volume] in Serum or Plasma 105 mEq/L 98 - 107 [facility] Carbon dioxide, total [Moles/volume] in Serum or Plasma 25 MEQ/L 22 - 30 [facility] Glucose [Mass/volume] in Serum or Plasma 96 MG/DL 65 - 110 [facility] BUN 16 MG/DL 7 - 21 [facility] Creatinine [Mass/volume] in Serum or Plasma 0.9 MG/DL 0.7 - 1.5 [facility] BUN/CREAT 18 8 - 27 [facility] Protein [Mass/volume] in Serum or Plasma 7.1 G/DL 6.3 - 8.2 [facility] Albumin [Mass/volume] in Serum or Plasma 4.3 G/DL 3.9 - 5.0 [facility] Globulin [Mass/volume] in Serum by calculation 2.8 GM/DL 2.4 - 3.2 [facility] A/G RATIO 1.5 0.8 - 2.0 [facility] Calcium [Mass/volume] in Serum or Plasma 9.3 MG/DL 8.4 - 10.2 [facility] Bilirubin.total [Mass/volume] in Serum or Plasma <0.7 MG/DL 0.2 - 1.3 [facility] Alkaline phosphatase [Enzymatic activity/volume] in Serum or Plasma 85 U/L 38 - 126 [facility] Aspartate aminotransferase [Enzymatic activity/volume] in Serum or Plasma 25 U/L 5 - 40 [facility] Alanine aminotransferase [Enzymatic activity/volume] in Seru m or Plasma 13 U/L 7 - 56 [facility] Anion gap 3 in Serum or Plasma 11.0 mmol/L 8.0 - 16.0 [facility] AGE 43 yrs [facility] Hospit al NON-AA GFR >60 mL/min [facility] Hosp ital AFR AMER GFR >60 mL/min [facility] Ho spital Male GFR In terprentation 20-49 yrs >60 mL/min Normal 50-59 yrs >56 mL/min Normal 60-69 yrs >49 mL/min Normal 70-79yrs >42 mL/min Normal 80 and above >35 mL/min Normal Female GFR Interpretation 20-39 yrs >60 mL/min Normal 40-49 yrs >58 mL/min Normal 50-59 yrs >51 mL/min Normal 60-69 yrs >45 mL/min Normal 70-79 yrs >39 mL/min Normal 80 and above >32 mL/min Normal ID Date Data Source [id number] 08/02/2019 09:38:00 PM EDT [facility] Name Value Range Interpretation Code Description Data Emily rce(s) Supporting Document(s) CBC W/AUTOMATED DIFF [facility] COMPLETE BLOOD COUNT Leukocytes [#/volume] in Blood by Automated count 6.6 10^3/uL 4.2 - 1 1.0 [facility] Erythrocytes [#/volume] in Blood by Automated count 4.15 10^6/uL 4. 20 - 5.40 L [facility] Hemoglobin [Mass/volume] in Blood 12.5 g/dL 12.0 - 16.0 [facility] Hematocrit [Volume Fraction] of Blood by Automated count 39.4 % 3 7.0 - 47.0 [facility] Erythrocyte mean corpuscular volume [Entitic volume] by Auto mated count 94.9 fL 81.0 - 101 [facility] Erythrocyte mean corpuscular hemoglobin [Entitic mass] by Automated count 30.1 pg 27.0 - 34.0 [facility] Erythrocyte mean corpuscular hemoglobin concentration [Mass/volume] by Automated count 31.7 g/dL 31.0 - 36.0 [facility] Erythrocyte distribution width [Ratio] by Automated count 13.5 % 11.5 - 14.5 [facility] Platelets [#/volume] in Blood by Automated count 305 10^3/uL 150 - 45 0 [facility] Platelet mean volume [Entitic volume] in Blood by Automated count 9.3 fL 7.4 - 10.4 [facility] Neutrophils/100 leukocytes in Blood by Automated count 51.6 % 37. 0 - 80.0 [facility] Lymphocytes/100 leukocytes in Blood by Manual count 38.2 % 25.0 - 40.0 [facility] Monocytes/100 leukocytes in Blood by Automated count 7.1 % 3.0 - 8.0 [facility] Eosinophils/100 leukocytes in Blood by Automated count 2.0 % 0.0 - 7.0 [facility] Basophils/100 leukocytes in Blood by Automated count 0.8 % 0.0 - 2.5 [facility] %IG 0.3 % 0.0 - 0.0 H [facility] Hospit al %NRBC 0.0 % 0.0 - 0.0 [facility] al Neutrophils [#/volume] in Blood by Automated count 3.42 10^3/uL 2.00 - 6.90 [facility] Lymphocytes [#/volume] in Blood by Automated count 2.53 10^3/uL 0.60 - 3.40 [facility] Monocytes [#/volume] in Blood by Automated count 0.47 10^3/uL 0.00 - 0.90 [facility] Eosinophils [#/volume] in Blood by Automated count 0.13 10^3/uL 0.00 - 0.70 [facility] Basophils [#/volume] in Blood by Automated count 0.05 10^3/uL 0.00 - 0.20 [facility] #IG 0.02 10^3/uL 0.00 - 0.10 [facility] ospital #NRBC 0.00 10^3/uL 0.00 - 0.00 [facility] H ospital MANUAL DIFF NOT INDICATED [facility] RBC MORPH NOT INDICATED [facility] Ho spital ID Date Data Source [id number] 07/29/2019 10:00:00 AM EDT [facility] Name Value Range Interpretation Code Description Data Emily rce(s) Supporting Document(s) 2019-nCoV N XXX Ql ROBSON N2 [facility] This lab was ordered by [facility] and reported by RITIKA. Procedure Social History Code Duration Value Status Description Data Source(s ) Smoking 03/18/2020 12:00:00 AM EST Never Smoker completed Never S moker eCW1 ([facility]) Smoking 03/18/2020 12:00:00 AM EST Never Smoker completed Never S moker eCW1 ([facility]) Smoking 03/03/2020 12:00:00 AM EST Never Smoker completed Never S moker eCW1 ([facility]) Smoking 03/03/2020 12:00:00 AM EST Never Smoker completed Never S moker eCW1 ([facility]) Smoking 03/03/2020 12:00:00 AM EST Never Smoker completed Never S moker eCW1 ([facility]) Smoking 02/14/2020 12:00:00 AM EDT Patient has never smoked co mpleted Patient has never smoked MEDENT ([facility], [facility]) Smoking 11/22/2019 12:00:00 AM EDT Never Smoker completed Never S moker eCW1 ([facility]) Smoking 11/22/2019 12:00:00 AM EDT Never Smoker completed Never S moker eCW1 ([facility]) Smoking 11/22/2019 12:00:00 AM EDT Never Smoker completed Never S moker eCW1 ([facility]) Smoking 11/22/2019 12:00:00 AM EDT Never Smoker completed Never S moker eCW1 ([facility]) Smoking 11/22/2019 12:00:00 AM EDT Never Smoker completed Never S moker eCW1 ([facility]) Smoking 11/22/2019 12:00:00 AM EDT Never Smoker completed Never S moker eCW1 ([facility]) 09/18/2019 06:53:33 AM EDT No completed No [facility] 09/18/2019 06:53:33 AM EDT No completed No [facility] Smoking 09/18/2019 12:00:00 AM EDT Never Smoker completed Never S moker eCW1 ([facility]) Smoking 09/18/2019 12:00:00 AM EDT Never Smoker completed Never S moker eCW1 ([facility]) Smoking 09/18/2019 12:00:00 AM EDT Never Smoker completed Never S moker eCW1 ([facility]) Smoking 09/18/2019 12:00:00 AM EDT Never Smoker completed Never S moker eCW1 ([facility]) Smoking 09/18/2019 12:00:00 AM EDT Never Smoker completed Never S moker eCW1 ([facility]) Vital Signs ID Date Data Source UNK Name Value Range Interpretation Code Description Data Source(s) Diastolic blood pressure 78 mm[Hg] 78 mm[Hg] eCW1 ([facility]) Systolic blood pressure 142 mm[Hg] 142 mm[Hg] e CW1 ([facility]) Body temperature 97.3 [degF] 97.3 [degF] eCW1 ( [facility]) Respiratory rate 18 /min 18 /min eCW1 (On license of [facility]) Heart rate 82 /min 82 /min eCW1 ([facility]) Body mass index (BMI) [Ratio] 44.44 kg/m2 44.44 kg/m2 W1 ([facility]) Body height 62 [in_i] 62 [in_i] eCW1 ([facility]) Body weight 243 [lb_av] 243 [lb_av] eCW1 ([facility]) Diastolic blood pressure 86 mm[Hg] 86 mm[Hg] eCW1 ([facility]) Systolic blood pressure 138 mm[Hg] 138 mm[Hg] e CW1 ([facility]) Body temperature 97.3 [degF] 97.3 [degF] eCW1 ( [facility]) Respiratory rate 18 /min 18 /min eCW1 (On license of [facility]) Heart rate 78 /min 78 /min eCW1 ([facility]) Body mass index (BMI) [Ratio] 42.61 kg/m2 42.61 kg/m2 W1 ([facility]) Body height 62 [in_i] 62 [in_i] eCW1 ([facility]) Body weight 233 [lb_av] 233 [lb_av] eCW1 ([facility]) Body temperature 96.8 [degF] 96.8 [degF] eCW1 ( [facility]) Respiratory rate 18 /min 18 /min eCW1 (On license of [facility]) Heart rate 84 /min 84 /min eCW1 ([facility]) Body mass index (BMI) [Ratio] 42.98 kg/m2 42.98 kg/m2 eCW1 ([facility]) Body height 62 [in_i] 62 [in_i] eCW1 ([facility]) Body weight 235 [lb_av] 235 [lb_av] eCW1 ([facility]) Body mass index (BMI) [Ratio] 43.3 kg/m2 43.3 k g/m2 MEDENT ([facility], [facility]) Body height 62 [in_i] 62 [in_i] MEDENT ([facility], [facility]) 5'2" Body weight 237.00 [lb_av] 237.00 [lb_av] MEDEN T ([facility], [facility]) Body temperature 98.5 [degF] 98.5 [degF] MEDENT ([facility], [facility]) Oxygen saturation in Arterial blood by Pulse oximetry 98 % 98 % MEDENT ([facility], [facility]) Respiratory rate 18 /min 18 /min MEDENT ( [facility], [facility]) Heart rate 70 /min 70 /min MEDENT ([facility], [facility]) Diastolic blood pressure 70 mm[Hg] 70 mm[Hg] MEDENT ([facility], [facility]) Systolic blood pressure 105 mm[Hg] 105 mm[Hg] M EDENT ([facility], [facility]) Diastolic blood pressure 82 mm[Hg] 82 mm[Hg] eCW1 ([facility]) Systolic blood pressure 124 mm[Hg] 124 mm[Hg] e CW1 ([facility]) Body mass index (BMI) [Ratio] 41.88 kg/m2 41.88 kg/m2 eCW1 ([facility]) Body height 62 [in_i] 62 [in_i] eCW1 ([facility]) Body weight 103.87 kg 103.87 kg eCW1 ([facility]) Body weight 229 [lb_av] 229 [lb_av] eCW1 ([facility]) Diastolic blood pressure 74 mm[Hg] 74 mm[Hg] eCW1 ([facility]) Systolic blood pressure 132 mm[Hg] 132 mm[Hg] e CW1 ([facility]) Body temperature 97.1 [degF] 97.1 [degF] eCW1 ( [facility]) Respiratory rate 18 /min 18 /min eCW1 (On license of [facility]) Heart rate 76 /min 76 /min eCW1 ([facility]) Body mass index (BMI) [Ratio] 42.21 kg/m2 42.21 kg/m2 eCW1 ([facility]) Body height 62 [in_us] 62 [in_us] eCW1 ([facility]) Body weight Measured 230.8 [lb_av] 230.8 [lb_av ] eCW1 ([facility]) Diastolic blood pressure 79 mm[Hg] 79 mm[Hg] eCW1 ([facility]) Systolic blood pressure 135 mm[Hg] 135 mm[Hg] e CW1 ([facility]) Body temperature 98.5 [degF] 98.5 [degF] eCW1 ( [facility]) Respiratory rate 20 /min 20 /min eCW1 (On license of [facility]) Heart rate 75 /min 75 /min eCW1 ([facility]) Body mass index (BMI) [Ratio] 42.06 kg/m2 42.06 kg/m2 eCW1 ([facility]) Body height 62 [in_i] 62 [in_i] eCW1 ([facility]) Body weight 230 [lb_av] 230 [lb_av] eCW1 ([facility]) Body mass index (BMI) [Ratio] 43.3 kg/m2 43.3 k g/m2 MEDENT ([facility]) Body height 62 [in_i] 62 [in_i] MEDENT ([facility], [facility]) 5'2" Body weight 237.00 [lb_av] 237.00 [lb_av] MEDEN T ([facility], [facility]) Body temperature 97.8 [degF] 97.8 [degF] MEDENT ([facility], [facility]) Oxygen saturation in Arterial blood by Pulse oximetry 98 % 98 % MED[facility] ([facility], [facility]) Respiratory rate 20 /min 20 /min MEDENT ( [facility], [facility]) Heart rate 72 /min 72 /min MEDENT ([facility], [facility]) Diastolic blood pressure 84 mm[Hg] 84 mm[Hg] MEDENT ([facility], [facility]) Systolic blood pressure 120 mm[Hg] 120 mm[Hg] M EDENT ([facility], [facility]) Diastolic blood pressure 60 mm[Hg] 60 mm[Hg] eCW1 ([facility]) Systolic blood pressure 102 mm[Hg] 102 mm[Hg] e CW1 ([facility]) Body temperature 97.9 [degF] 97.9 [degF] eCW1 ( [facility]) Respiratory rate 18 /min 18 /min eCW1 (On license of [facility]) Heart rate 85 /min 85 /min eCW1 ([facility]) Body mass index (BMI) [Ratio] 43.34 kg/m2 43.34 kg/m2 eCW1 ([facility]) Body height 62 [in_us] 62 [in_us] eCW1 ([facility]) Body weight Measured 237 [lb_av] 237 [lb_av] eC W1 ([facility]) Body mass index (BMI) [Ratio] 43.3 kg/m2 43.3 k g/m2 MEDENT ([facility], [facility]) Body height 62 [in_i] 62 [in_i] MEDENT ([facility], [facility]) 5'2" Body weight 237.00 [lb_av] 237.00 [lb_av] MEDEN T ([facility], [facility]) Body temperature 98.0 [degF] 98.0 [degF] MEDENT ([facility], [facility]) Oxygen saturation in Arterial blood by Pulse oximetry 99 % 99 % MED[facility] ([facility], [facility]) Respiratory rate 20 /min 20 /min MEDENT ( [facility], [facility]) Heart rate 82 /min 82 /min MEDENT ([facility], [facility]) Diastolic blood pressure 84 mm[Hg] 84 mm[Hg] MEDENT ([facility], [facility]) Systolic blood pressure 130 mm[Hg] 130 mm[Hg] M EDENT ([facility], [facility]) Diastolic blood pressure 72 mm[Hg] 72 mm[Hg] eCW1 ([facility]) Systolic blood pressure 128 mm[Hg] 128 mm[Hg] e CW1 ([facility]) Body mass index (BMI) [Ratio] 43.93 kg/m2 43.93 kg/m2 eCW1 ([facility]) Body height 62 [in_us] 62 [in_us] eCW1 ([facility]) Body weight Measured 240.2 [lb_av] 240.2 [lb_av ] eCW1 ([facility]) Diastolic blood pressure 72 mm[Hg] 72 mm[Hg] eCW1 ([facility]) Systolic blood pressure 130 mm[Hg] 130 mm[Hg] e CW1 ([facility]) Body temperature 97.5 [degF] 97.5 [degF] eCW1 ( [facility]) Respiratory rate 18 /min 18 /min eCW1 (On license of [facility]) Heart rate 86 /min 86 /min eCW1 ([facility]) Body mass index (BMI) [Ratio] 43.71 kg/m2 43.71 kg/m2 eCW1 ([facility]) Body height 62 [in_us] 62 [in_us] eCW1 ([facility]) Body weight Measured 239 [lb_av] 239 [lb_av] eC W1 ([facility]) Body mass index (BMI) [Ratio] 43.3 kg/m2 43.3 k g/m2 MED[facility] ([facility], [facility]) Body height 62 [in_i] 62 [in_i] MEDENT ([facility], [facility]) 5'2" Body weight 237.00 [lb_av] 237.00 [lb_av] MEDEN T ([facility], [facility]) Body temperature 98.6 [degF] 98.6 [degF] MEDENT ([facility], [facility]) Oxygen saturation in Arterial blood by Pulse oximetry 99 % 99 % [facility] ([facility], [facility]) Respiratory rate 20 /min 20 /min MEDENT ( [facility], [facility]) Heart rate 78 /min 78 /min MEDENT ([facility], [facility]) Diastolic blood pressure 80 mm[Hg] 80 mm[Hg] MEDENT ([facility], [facility]) Systolic blood pressure 122 mm[Hg] 122 mm[Hg] M EDENT ([facility], [facility]) Diastolic blood pressure 78 mm[Hg] 78 mm[Hg] eCW1 ([facility]) Systolic blood pressure 114 mm[Hg] 114 mm[Hg] e CW1 ([facility]) Body temperature 97.5 [degF] 97.5 [degF] eCW1 ( [facility]) Respiratory rate 18 /min 18 /min eCW1 (On license of [facility]) Heart rate 83 /min 83 /min eCW1 ([facility]) Body mass index (BMI) [Ratio] 45.94 kg/m2 45.94 kg/m2 W1 ([facility]) Body height 62 [in_us] 62 [in_us] eCW1 ([facility]) Body weight Measured 251.2 [lb_av] 251.2 [lb_av ] eCW1 ([facility]) ID Date Data Source [id number] 08/08/2019 12:27:30 PM EDT [facility] Name Value Range Interpretation Code Description Data Source(s) WEIGHT RECORDED 228.00 pounds 228.00 pounds [facility] Height 62 Inches 062 Inches [facility] Patient Treatment Plan of Care Planned Activity Planned Date Details Description Data Source (s) Metronidazole 500 MG Oral Tablet 11/22/2019 12:00:00 AM EDT eCW1 ([facility]) Metronidazole 500 MG Oral Tablet 11/22/2019 12:00:00 AM EDT eCW1 ([facility]) Metronidazole 500 MG Oral Tablet 11/22/2019 12:00:00 AM EDT eCW1 ([facility]) Metronidazole 500 MG Oral Tablet 11/22/2019 12:00:00 AM EDT eCW1 ([facility]) Metronidazole 500 MG Oral Tablet 11/22/2019 12:00:00 AM EDT eCW1 ([facility]) Metronidazole 500 MG Oral Tablet 11/22/2019 12:00:00 AM EDT eCW1 ([facility]) Orilissa 200 MG 11/15/2019 12:00:00 AM EDT eCW1 ([facility]) doxycycline hyclate 100 MG Oral Capsule 05/29/2019 12:00:00 AM EST eCW1 ([facility]) rivaroxaban 20 MG Oral Tablet [Xarelto] 04/05/2019 12:00:00 AM EST eCW1 ([facility]) Albuterol Sulfate HFA 108 (90 Base) MCG/ACT 03/27/2019 12:00:00 AM EST eCW1 ([facility]) PredniSONE 10 MG (48) 03/27/2019 12:00:00 AM EST eCW1 ([facility])
--- OUTSIDE RECORDS SUMMARY | 2020-05-23 00:19 | CCD ---
Author Author [facility] Organization [facility] Address Unknown Phone Unavailable Support Name Relationship Address Phone [facility]IM[facility] SYLVAIN Next Of Kin [address] [place] [address] [place] TECH [place], [place] [address] [place] [address] Karolina MAYNARD Next Of Kin [address] [place] [address] RCIL Next Of Kin [address] [place] [address] DISABLED Next Of Kin Unknown Unavailable UNEMPLOYED Next Of Kin - -, - - ANA MARIA PRESTON(HP) Next Of Kin [address] [place] [address] ANA MARIA PRESTON(HCP) Next Of [address] [address] SSV* Next Of Kin [address] [place] [address] [facility] [place] [address] ANA MARIA ZAPATA Next Of Kin [address] [place] [address] [facility] Next Of Kin [address] [place] [address] [employer] [place] [address] [employer] Next Of Kin [address] [place] [address] [employer] Next Of Kin [address] [place] [address] MER[facility] Next Of Kin [address] [place] [address] FAMILY Next Of Kin [address] [place] [address] [employer] Next Of Kin [address] [place] [id number] UE Next Of Kin Unknown Unavailable EDDIE RENEE Next Of Kin [facility] [phone] CASSIDY JESSICA Next Of Kin [address] [place] [address] JANNET MAYNARD Next Of Kin [address] [place] [address] SMC* Next Of Kin [address] [place] [address] Og PRESTON Next Of Kin [address] [place] [address] [facility] Next Of Kin [address] [place] [address] ANA MARIA PRESTON Next Of Kin [address] [facility] [address] [place] [id number] ClarendonAna Maria alcantar ECON [address] [place] [address] [phone] JANNET MAYNARD ECON [address] [place] [address] [phone] Care Team Providers Care Forensic Specialist Name Role Phone Gina COOL, A Luis [...] Unavailable Lorenzo, K Elie MD Unavailable Unavailable Fowler Falanga, A Humaira MACHINE MAINTENANCE REPAIRER Unavailable Unavailable Fowler Falanga, A Humaira MACHINE MAINTENANCE REPAIRER Unavailable Unavailable Fowler Falanga, A Humaira MACHINE MAINTENANCE REPAIRER Unavailable Unavailable Fowler Falanga, A Humaira MACHINE MAINTENANCE REPAIRER Unavailable Unavailable Pankaj Falanga, A Humaira MACHINE MAINTENANCE REPAIRER Unavailable Unavailable Fowler Falanga, A Humaira MACHINE MAINTENANCE REPAIRER Unavailable Unavailable Fowler Falanga, A Humaira MACHINE MAINTENANCE REPAIRER Unavailable Unavailable Pankaj Falanga, A Humaira MACHINE MAINTENANCE REPAIRER Unavailable Unavailable Pankaj Falanga, A Humaira MACHINE MAINTENANCE REPAIRER Unavailable Unavailable Pankaj Falanga, A Humaira MACHINE MAINTENANCE REPAIRER Unavailable Unavailable Fowler Falanga, A Humaira MACHINE MAINTENANCE REPAIRER Unavailable Unavailable Pankaj Falanga, A Humaira MACHINE MAINTENANCE REPAIRER Unavailable Unavailable Fowler Falanga, A Humaira MACHINE MAINTENANCE REPAIRER Unavailable Unavailable Fowler Falanga, A Humaira MACHINE MAINTENANCE REPAIRER Unavailable Unavailable Pankaj Falanga, A Humaira MACHINE MAINTENANCE REPAIRER Unavailable Unavailable Fowler Falanga, A Humaira MACHINE MAINTENANCE REPAIRER Unavailable Unavailable Fowler Falanga, A Humaira MACHINE MAINTENANCE REPAIRER Unavailable Unavailable Pankaj Falanga, A Humaira MACHINE MAINTENANCE REPAIRER Unavailable Unavailable Pankaj Falanga, A Humaira MACHINE MAINTENANCE REPAIRER Unavailable Unavailable Fowler Falanga, A Humaira MACHINE MAINTENANCE REPAIRER Unavailable Unavailable Fowler Falanga, A Humaira MACHINE MAINTENANCE REPAIRER Unavailable Unavailable Fowler Falanga, A Humaira MACHINE MAINTENANCE REPAIRER Unavailable Unavailable Pankaj Falanga, A Humaira MACHINE MAINTENANCE REPAIRER Unavailable Unavailable Pankaj Falanga, A Humaira MACHINE MAINTENANCE REPAIRER Unavailable Unavailable Pankaj Falanga, A Humaira MACHINE MAINTENANCE REPAIRER Unavailable Unavailable Pankaj Falanga, A Humaira MACHINE MAINTENANCE REPAIRER Unavailable Unavailable Fowler Falanga, A Humaira MACHINE MAINTENANCE REPAIRER Unavailable Unavailable Pankaj Falanga, A Humaira MACHINE MAINTENANCE REPAIRER Unavailable Unavailable Fowler Falanga, A Humaira MACHINE MAINTENANCE REPAIRER Unavailable Unavailable Fowler Falanga, A Humaira MACHINE MAINTENANCE REPAIRER Unavailable Unavailable RING, K RADHA PA Unavailable [...] K RADHA PA Unavailable Unavailable Bates, Joi PRESIDING JUDGE Unavailable Unavailable Bates, Joi PRESIDING JUDGE Unavailable Unavailable Bates, Joi PRESIDING JUDGE Unavailable Unavailable Bates, Joi PRESIDING JUDGE Unavailable Unavailable Bates, Joi PRESIDING JUDGE Unavailable Unavailable Bates, Joi PRESIDING JUDGE Unavailable Unavailable Bates, Joi PRESIDING JUDGE Unavailable Unavailable Bates, Joi PRESIDING JUDGE Unavailable Unavailable Bates, Joi PRESIDING JUDGE Unavailable Unavailable Bates, Joi PRESIDING JUDGE Unavailable Unavailable Bates, Joi PRESIDING JUDGE Unavailable Unavailable Leo, Johanne Lily PA Unavailable [...] RENÉE RPA-C Unavailable Unavailable REINALDO (FLOR), N RNEÉE RPA-C Unavailable Unavailable REINALDO (FLOR), N RENÉE [...] is protected by Article 27-F of the [facility] Public Health law. If you continue you may have access to information: Regarding HIV / AIDS; Provided by facilities licensed or operated by the [facility] Office of Mental Health; or Provided by the [facility] Office for People With Developmental Disabilities. If such information is present, then the following [facility] mandated warning applies: This information has been [...] law may result in a fine or correction sentence or both. A general authorization for the release of medical or other information is NOT sufficient authorization for further disc losure. Allergies and Adverse Reactions Type Description Substance Reaction Status Data Source(s ) Drug allergy Ibuprofen Ibuprofen Swelling Active eCW1 ([facility]) Drug allergy Butrans Transdermal Patch Drug allergy Vomiting/[place] nk Active eCW1 ([facility]) Drug allergy Cymbalta duloxetine Hallucinations Active eCW1 ([facility]) Drug allergy Neurontin gabapentin Hives; "drunk feeling" Active eCW1 ([facility]) Drug allergy buprenorphine buprenorphine Other, not listed [facility] Drug allergy gabapentin gabapentin Other, not listed [facility] Drug allergy oxycodone oxycodone GI Upset [facility] Drug allergy NSAIDS (Non-Steroidal Anti-Inflamma NSAI DS (Non-Steroidal Anti-Inflamma Other, not listed [facility] NSAIDS NSAIDS NSAIDS Swelling Active eCW1 ([facility]) drugs with OD potential drugs with OD potential drugs with OD po tential has taken OD x 2 (2013, 09/16) Active eCW1 ([facility]) BRANDNAME BUTRANS BUTRANS confusion [facility] BRANDNAME NEURONTIN NEURONTIN confusion [facility] BRANDNAME CYMBALTA CYMBALTA AGITATION/CRAWLING THE ZURITA [facility] Drug allergy ROFECOXIB ROFECOXIB HIVES [facility] CLASS NSAID NSAID SWELLING [facility] cymbalta cymbalta duloxetine 30 MG Delayed Release Oral Capsule [Cymbalta] hallucinations Active eCW1 ([facility]) drugs with OD potential drugs with OD potential drugs with OD po tential has taken OD x 2 (09/16) Active eCW1 ([facility]) NSAIDS NSAIDS NSAIDS Swelling Active eCW1 ([facility]) vioxx vioxx vioxx Hives Active eCW1 ([facility]) gabapentin gabapentin gabapentin 50 MG/ML Oral Solution drunk feeling Active eCW1 ([facility]) cymbalta cymbalta duloxetine 30 MG Delayed Release Oral Capsule [Cymbalta] hallucinations Active eCW1 ([facility]) drugs with OD potential drugs with OD potential drugs with OD po tential has taken OD x 2 (2013, 09/16) Active eCW1 ([facility]) NSAIDS NSAIDS NSAIDS Swelling Active eCW1 ([facility]) vioxx vioxx vioxx Hives Active eCW1 ([facility]) gabapentin gabapentin gabapentin 50 MG/ML Oral Solution drunk feeling Active eCW1 ([facility]) cymbalta cymbalta duloxetine 30 MG Delayed Release Oral Capsule [Cymbalta] hallucinations Active eCW1 ([facility]) drugs with OD potential drugs with OD potential drugs with OD po tential has taken OD x 2 (2013, 09/16) Active eCW1 ([facility]) NSAIDS NSAIDS NSAIDS Swelling Active eCW1 ([facility]) vioxx vioxx vioxx Hives Active eCW1 ([facility]) gabapentin gabapentin gabapentin 50 MG/ML Oral Solution drunk feeling Active eCW1 ([facility]) vioxx vioxx vioxx Hives Active eCW1 ([facility]) NSAIDS NSAIDS NSAIDS Swelling Active eCW1 ([facility]) gabapentin gabapentin gabapentin 100 MG Oral Capsule drunk feeling A ctive eCW1 ([facility]) cymbalta cymbalta duloxetine 30 MG Delayed Release Oral Capsule [Cymbalta] hallucinations Active eCW1 ([facility]) drugs with OD potential drugs with OD potential drugs with OD po tential has taken OD x 2 (09/16) Active eCW1 ([facility]) Family History Family Member Name Family Member Gender Family Member Status Date o f Status Description Data Source(s) Unknown Unknown Problem MEDENT ([facility], ) Encounters Encounter Providers Location Date Indications Data Source(s ) Out[place] [address] [facility] [address] 03/18/2020 12:00:00 AM EST eCW1 ([facility]) Outpatient Attender: Luis Manuel Fuentes MD 03/17/2020 12:00:00 A M [facility] Outpatient [address] [facility] [address] 03/14/2020 12:00:00 AM EST eCW1 ([facility]) Unknown [address] [facility] [address] 03/11/2020 12:00:00 AM EST eCW1 ([facility]) Unknown [address] [facility] [address] 03/10/2020 12:00:00 AM EST eCW1 ([facility]) Outpatient [address] [facility] Y [address] 03/03/2020 12:00:00 AM EST [facility]CW1 [facility] Unknown [address] [facility] Y [address] 02/21/2020 12:00:00 AM EDT eCW1 ([facility]) Unknown [address] [facility] Y [address] 02/17/2020 12:00:00 AM EDT eCW1 ([facility]) Unknown [address] [facility] Y [address] 02/17/2020 12:00:00 AM EDT eCW1 ([facility]) Outpatient [address] [facility] Y [address] 02/15/2020 12:00:00 AM EDT eCW1 ([facility]) Outpatient Attender: RADHA Pelaez 02/14/2020 04:00:00 PM EDT MEDENT ([facility]) Outpatient [address] [facility] Y [address] 11/22/2019 12:00:00 AM EDT eCW1 ([facility]) Unknown [address] [facility] Y [address] 11/15/2019 12:00:00 AM EDT eCW1 ([facility]) Unknown [address] [facility] Y [address] 10/23/2019 12:00:00 AM EDT eCW1 ([facility]) Unknown [address] [facility] Y [address] 10/19/2019 12:00:00 AM EDT eCW1 ([facility]) Outpatient Referrer: HOMERO DIAZ DO 10/10/2019 06:01:00 AM EDT [facility] Unknown [address] [facility] Y [address] 10/08/2019 12:00:00 AM EDT eCW1 ([facility]) Unknown [address] [facility] [address] 10/02/2019 12:00:00 AM EDT eCW1 [facility] [place] [place] [address] [facility] [address] 09/27/2019 12:00:00 AM EDT eCW1 ([facility]) [facility] [place] [address] [facility] [address] 09/21/2019 12:00:00 AM EDT eCW1 [facility]) Emergency Attender: Elie Ventura MD 09/18/19 02:37:00 AM EDT - 09/18/2019 07:25:00 AM EDT RIGHT SIDE [facility] RIGHT SIDE PAIN Patient discharged. Unknown [address] [facility] [address] 09/18/2019 12:00:00 AM EDT eCW1 ([facility]) [facility] [place] [address] [facility] [address] 09/18/2019 12:00:00 AM EDT eCW1 ([facility]) [facility] [place] [address] [facility] [address] 08/20/2019 12:00:00 AM EDT eCW1 ([facility]) [facility] [place] [address] [facility] [address] 08/03/2019 12:00:00 AM EDT eCW1 ([facility]) Outpatient Attender: Humaira king FNPAttender: STEFANI CABALLEROConsultant: RENÉE NAJERA (FLOR) RPA-C 08/02/2019 08:59:00 PM EDT - 08/04/2019 11:52:00 AM EDT [facility] Patient discharged. Outpatient [address] [facility] [address] 08/02/2019 12:00:00 AM EDT eCW1 ([facility]) [facility] [address] [facility] [address] 07/20/2019 12:00:00 AM EDT eCW1 ([facility]) [facility] [place] [address] [facility] [address] 07/20/2019 12:00:00 AM EDT eCW1 ([facility]) Outpatient Attender: Lily franklin 07/13/2019 11:45:00 AM EDT MEDENT ([facility]) [facility] [place] [address] [place] [address], [place] [address] 07/09/2019 12:00:00 AM EDT eCW1 ([facility]) [facility] [address] [facility] [address] 07/05/2019 12:00:00 AM EST eCW1 ([facility]) [facility] [address] [place] [address], [place] [address] 07/05/2019 12:00:00 AM EST eCW1 ([facility]) [facility] [place] [address] [facility] [address] 06/28/2019 12:00:00 AM EST eCW1 [facility]) Outpatient Referrer: HOMERO DIAZ DO 06/27/2019 09:34:00 PM EST [facility] Outpatient Referrer: HOMERO DIAZ DO 06/27/2019 12:33:00 PM EST [facility] [address] [place] [address], [place] [address] 06/18/2019 12:00:00 AM EST eCW1 ([facility]) Outpatient Attender: Joi christianson 06/15/2019 01:30:00 PM EST MEDENT ([facility]) [facility] [address] [facility] [address] 06/12/2019 12:00:00 AM EST eCW1 ([facility]) [facility] [address] [facility], [place] [address] 06/11/2019 12:00:00 AM EST eCW1 ([facility]) [facility] [address] [facility] Y [address] 06/08/2019 12:00:00 AM EST eCW1 ([facility]) [facility] [address] [place] [address] 06/06/2019 12:00:00 AM EST eCW1 ([facility]) [facility] [address] [place] [address] [place] [address] 06/04/2019 12:00:00 AM EST eCW1 ([facility]) Outpatient Referrer: HOMERO DIAZ DO 06/01/2019 03:33:00 PM EST [facility] [place] [address] [place] [address] Y [address] 05/29/2019 12:00:00 AM EST eCW1 ([facility]) Outpatient Referrer: HOMERO DIAZ DO 05/28/2019 01:54:00 PM EST [facility] Outpatient Attender: RADHA Pelaez 05/23/2019 01:30:00 PM EST MEDENT ([facility]) Outpatient Referrer: HOMERO DIAZ DO 05/08/2019 02:16:00 PM EST [facility] [place] [address] [place] [address] Y [address] 05/08/2019 12:00:00 AM EST eCW1 ([facility]) [facility] [place] [address] [place] [address] Y [address] 05/08/2019 12:00:00 AM EST eCW1 ([facility]) [facility] [place] [address] [place] [address] Y [address] 05/08/2019 12:00:00 AM EST eCW1 ([facility]) [facility] [place] [address] [place] [address], [place] [address] 05/07/2019 12:00:00 AM EST eCW1 ([facility]) [facility] [place] [address] [facility] [address] 04/18/2019 12:00:00 AM EST eCW1 ([facility]) [facility] [address] [place] [address] 04/09/2019 12:00:00 AM EST eCW1 ([facility]) Outpatient Referrer: HOMERO DIAZ DO 04/08/2019 08:38:00 PM EST [facility] [address] [facility] [address] 04/06/2019 12:00:00 AM EST eCW1 ([facility]) [facility] [place] [address] [facility] [address] 04/06/2019 12:00:00 AM EST eCW1 ([facility]) [facility] [place] [address] [facility] [address] 04/04/2019 12:00:00 AM EST eCW1 ([facility]) [facility] [place] [address] [facility] [address] 03/27/2019 12:00:00 AM EST eCW1 ([facility]) [facility] [place] [address] [place] [address], [place] [address] 03/27/2019 12:00:00 AM EST eCW1 ([facility]) Immunizations Vaccine Date Status Description Data Source(s) influenza, recombinant, quadrIvalent,injectable, prese rvative free 02/15/2020 04:54:00 PM EDT completed eCW1 ([facility]) influenza, recombinant, quadrIvalent,injectable, prese rvative free 02/15/2020 04:54:00 PM EDT completed eCW1 ([facility]) influenza, recombinant, quadrIvalent,injectable, prese rvative free 02/15/2020 04:54:00 PM EDT completed eCW1 ([facility]) influenza, recombinant, quadrIvalent,injectable, prese rvative free 02/15/2020 04:54:00 PM EDT completed eCW1 ([facility]) influenza, recombinant, quadrIvalent,injectable, prese rvative free 02/15/2020 04:54:00 PM EDT completed eCW1 ([facility]) influenza, recombinant, quadrIvalent,injectable, prese rvative free 02/15/2020 04:54:00 PM EDT completed eCW1 ([facility]) influenza, recombinant, quadrIvalent,injectable, prese rvative free 02/15/2020 04:54:00 PM EDT completed eCW1 ([facility]) influenza, recombinant, quadrIvalent,injectable, prese rvative free 02/15/2020 04:54:00 PM EDT completed eCW1 ([facility]) influenza, recombinant, quadrIvalent,injectable, prese rvative free 02/15/2020 04:54:00 PM EDT completed eCW1 ([facility]) influenza, recombinant, quadrIvalent,injectable, prese rvative free 02/15/2020 04:54:00 PM EDT completed eCW1 ([facility]) MMR 05/08/2019 01:16:00 PM EST completed e CW1 ([facility]) MMR 05/08/2019 01:16:00 PM EST completed e CW1 ([facility]) MMR 05/08/2019 01:16:00 PM EST completed e CW1 ([facility]) MMR 05/08/2019 01:16:00 PM EST completed e CW1 ([facility]) MMR 05/08/2019 01:16:00 PM EST completed e CW1 ([facility]) MMR 05/08/2019 01:16:00 PM EST completed e CW1 ([facility]) MMR 05/08/2019 01:16:00 PM EST completed e CW1 ([facility]) MMR 05/08/2019 01:16:00 PM EST completed e CW1 ([facility]) MMR 05/08/2019 01:16:00 PM EST completed e CW1 ([facility]) MMR 05/08/2019 01:16:00 PM EST completed e CW1 ([facility]) MMR 05/08/2019 01:16:00 PM EST completed e CW1 ([facility]) MMR 05/08/2019 01:16:00 PM EST completed e CW1 ([facility]) MMR 05/08/2019 01:16:00 PM EST completed e CW1 ([facility]) MMR 05/08/2019 01:16:00 PM EST completed e CW1 ([facility]) MMR 05/08/2019 01:16:00 PM EST completed e CW1 ([facility]) MMR 05/08/2019 01:16:00 PM EST completed e CW1 ([facility]) MMR 05/08/2019 01:16:00 PM EST completed e CW1 ([facility]) MMR 04/06/2019 01:59:00 PM EST completed e CW1 ([facility]) MMR 04/06/2019 01:59:00 PM EST completed e CW1 ([facility]) MMR 04/06/2019 01:59:00 PM EST completed e CW1 ([facility]) MMR 04/06/2019 01:59:00 PM EST completed e CW1 ([facility]) MMR 04/06/2019 01:59:00 PM EST completed e CW1 ([facility]) MMR 04/06/2019 01:59:00 PM EST completed e CW1 ([facility]) MMR 04/06/2019 01:59:00 PM EST completed e CW1 ([facility]) MMR 04/06/2019 01:59:00 PM EST completed e CW1 ([facility]) MMR 04/06/2019 01:59:00 PM EST completed e CW1 ([facility]) MMR 04/06/2019 01:59:00 PM EST completed e CW1 ([facility]) MMR 04/06/2019 01:59:00 PM EST completed e CW1 ([facility]) MMR 04/06/2019 01:59:00 PM EST completed e CW1 ([facility]) MMR 04/06/2019 01:59:00 PM EST completed e CW1 ([facility]) MMR 04/06/2019 01:59:00 PM EST completed e CW1 ([facility]) MMR 04/06/2019 01:59:00 PM EST completed e CW1 ([facility]) MMR 04/06/2019 01:59:00 PM EST completed e CW1 ([facility]) MMR 04/06/2019 01:59:00 PM EST completed e CW1 ([facility]) Medications Medication Brand Name Start Date Product [...] 4.0 {tablets_with_food} active Tinidazole 500 MG eCW1 ([facility]) Tinidazole 500 MG Oral Tablet Tinidazole 500 MG 03/14/2020 12:00:00 AM EST 4.0 {tablets_with_food} active Tinidazole 500 MG eCW1 ([facility]) 4 mg 03/10/2020 12:00:00 AM EST tablet,disintegrating [...] FOR 10 DAYS SOLD : 02/14/2020 [facility] Doxycycline Monohydrate 100 MG Oral Capsule Doxycycline [place] hydrate 02/14/2020 12:00:00 AM EDT ORAL active M EDENT ([facility]) Prednisone 20 MG Oral Tablet Prednisone 02/14/2020 12:00:00 AM EDT ORAL active MEDENT ([facility]) 20 mg 02/14/2020 12:00:00 AM EDT tablet 6 TAKE ONE TABLET BY MOUTH TWICE A DAY FOR 3 DAYS TAKE ONE TABLET BY MOUTH TWICE A DAY FOR 3 DAYS SOLD: 2019 [facility] venlafaxine 100 MG Oral Tablet VENLAFAXINE HCL [...] TABLET BY MOUTH EVERY DAY SOLD: 04/11/2020 [facility] 4 mg 01/19/2020 12:00:00 AM [...] {tablets} active Metronidaz ole 500 MG eCW1 ([facility]) Metronidazole 500 MG Oral Tablet Metronidazole 500 MG 2019 12:00:00 AM EDT 4.0 {tablets} active Metronidaz ole 500 MG eCW1 ([facility]) Metronidazole 500 MG Oral Tablet METRONIDAZOLE 11/22/2019 12:0 0:00 AM EDT tablet 4 TAKE FOUR TABLETS BY MOUTH TAKE FOUR TABLETS BY MOUTH SO LD: 11/22/2019 [facility] Metronidazole 500 MG Oral Tablet Metronidazole 500 MG 2019 12:00:00 AM EDT 4.0 {tablets} active Metronidaz ole 500 MG eCW1 ([facility]) Metronidazole 500 MG Oral Tablet Metronidazole 500 MG 2019 12:00:00 AM EDT 4.0 {tablets} active Metronidaz ole 500 MG eCW1 ([facility]) Metronidazole 500 MG Oral Tablet Metronidazole 500 MG 2019 12:00:00 AM EDT 4.0 {tablets} active Metronidaz ole 500 MG eCW1 ([facility]) Metronidazole 500 MG Oral Tablet Metronidazole 500 MG 2019 12:00:00 AM EDT 4.0 {tablets} active Metronidaz ole 500 MG eCW1 ([facility]) 10 mg 11/17/2019 12:00:00 AM EDT tablet [...] { tablet} active Orilissa 200 MG eCW1 ([facility]) Orilissa 200 MG Orilissa 200 MG 11/15/2019 12:00:00 AM EDT 1.0 { tablet} active Orilissa 200 MG eCW1 ([facility]) Orilissa 200 MG Orilissa 200 MG 11/15/2019 12:00:00 AM EDT 1.0 { tablet} active Orilissa 200 MG eCW1 ([facility]) Orilissa 200 MG Orilissa 200 MG 11/15/2019 12:00:00 AM EDT 1.0 { tablet} active Orilissa 200 MG eCW1 ([facility]) Orilissa 200 MG Orilissa 200 MG 11/15/2019 12:00:00 AM EDT 1.0 { tablet} active Orilissa 200 MG eCW1 ([facility]) Orilissa 200 MG Orilissa 200 MG 11/15/2019 12:00:00 AM EDT 1.0 { tablet} suspended Orilissa 200 MG eCW1 ([facility]) Orilissa 200 MG Orilissa 200 MG 11/15/2019 12:00:00 AM EDT 1.0 { tablet} active Orilissa 200 MG eCW1 ([facility]) Orilissa 200 MG Orilissa 200 MG 11/15/2019 12:00:00 AM EDT 1.0 { tablet} suspended Orilissa 200 MG eCW1 ([facility]) Orilissa 200 MG Orilissa 200 MG 11/15/2019 12:00:00 AM EDT 1.0 { tablet} active Orilissa 200 MG eCW1 ([facility]) Orilissa 200 MG Orilissa 200 MG 11/15/2019 12:00:00 AM EDT 1.0 { tablet} active Orilissa 200 MG eCW1 ([facility]) Orilissa 200 MG Orilissa 200 MG 11/15/2019 12:00:00 AM EDT 1.0 { tablet} active Orilissa 200 MG eCW1 ([facility]) Orilissa 200 MG Orilissa 200 MG 11/15/2019 12:00:00 AM EDT 1.0 { tablet} active Orilissa 200 MG eCW1 ([facility]) atorvastatin 20 MG Oral Tablet [...] 12:00:00 AM EST active 1 capsule eCW1 ([facility]) 40 mg 05/29/2019 12:00:00 AM EST tablet 30 TAKE ONE TABLET BY MOUTH ONCE A DAY TAKE ONE TABLET BY MOUTH ONCE A DAY SOLD: 08/22/2019 [facility] doxycycline hyclate 100 MG Oral Capsule Doxycycline Hy clate 100 MG Doxycycline Hyclate 100 MG 05/29/2019 12:00:00 AM EST active 1 capsule eCW1 ([facility]) 100 mg 05/29/2019 12:00:00 AM EST tablet [...] 05/23/2019 12:00:[address] active MEDENT ([facility]) atorvastatin 20 MG Oral Tablet ATORVASTATIN CALCIUM [...] 05/23/2019 12:00:00 AM EST ORAL completed MEDENT ([facility]) Levofloxacin 750 MG Oral Tablet Levofloxacin 05/23/2019 12:00:[address] ORAL completed MEDENT ([facility]) 40 mg 05/08/2019 12:00:00 AM EST capsule,delayed [...] TAKE ONE TABLET BY MOUTH EVERY DAY [facility] ([facility]) rivaroxaban 20 MG Oral Tablet [Xarelto] Xarelto 20 MG Xarelt o 20 MG 04/05/2019 12:00:00 AM EST active TAKE ONE TABLET BY MOUTH EVERY DAY [facility] ([facility]) rivaroxaban 20 MG Oral Tablet [Xarelto] Xarelto 20 MG Xarelt o 20 MG 04/05/2019 12:00:00 AM EST active TAKE ONE TABLET BY MOUTH EVERY DAY [facility] ([facility]) rivaroxaban 20 MG Oral Tablet [Xarelto] Xarelto 20 MG Xarelt o 20 MG 04/05/2019 12:00:00 AM EST active TAKE ONE TABLET BY MOUTH EVERY DAY eCW1 ([facility]) 10 mg 03/28/2019 12:00:00 AM EST tablet [...] Doxycycline Monohydrate 100 MG Oral Capsule Doxycycline Bullitt hydrate 100 MG 03/27/2019 12:00:00 AM EST 1.0 {capsule} suspend ed Doxycycline Monohydrate 100 MG eCW1 ([facility]) Albuterol Sulfate HFA 108 (90 Base) MCG/ACT Albuterol Sulfate HFA 108 (90 Base) MCG/ACT 03/27/2019 12:00:00 AM EST 2.0 {puffs_as_needed} suspended Albuterol Sulfate HFA 108 (90 Base) MCG/ACT eCW1 ([facility]) PredniSONE 10 MG (48) PredniSONE 10 MG (48) 03/27/2019 12:00:00 AM EST suspended as directed eCW1 ([facility]) Albuterol Sulfate HFA 108 (90 Base) MCG/ACT Albuterol Sulfate HFA 108 (90 Base) MCG/ACT 03/27/2019 12:00:00 AM EST active 2 puffs as needed eCW1 ([facility]) Doxycycline Monohydrate 100 MG Oral Capsule Doxycycline Bullitt hydrate 100 MG 03/27/2019 12:00:00 AM EST 1.0 {capsule} suspend ed Doxycycline Monohydrate 100 MG eCW1 ([facility]) PredniSONE 10 MG (48) PredniSONE 10 MG (48) 03/27/2019 12:00:00 AM EST suspended PredniSONE 10 MG (48) eCW1 ( [facility]) Doxycycline Monohydrate 100 MG Oral Capsule Doxycycline Bullitt hydrate 100 MG 03/27/2019 12:00:00 AM EST active 1 capsule eCW1 ([facility]) Doxycycline Monohydrate 100 MG Oral Capsule Doxycycline Bullitt hydrate 100 MG 03/27/2019 12:00:00 AM EST suspended 1 capsule eCW1 ([facility]) PredniSONE 10 MG (48) PredniSONE 10 MG (48) 03/27/2019 12:00:00 AM EST suspended PredniSONE 10 MG (48) eCW1 ( [facility]) Doxycycline Monohydrate 100 MG Oral Capsule Doxycycline Bullitt hydrate 100 MG 03/27/2019 12:00:00 AM EST 1.0 {capsule} suspend ed Doxycycline Monohydrate 100 MG eCW1 ([facility]) PredniSONE 10 MG (48) PredniSONE 10 MG (48) 03/27/2019 12:00:00 AM EST suspended PredniSONE 10 MG (48) eCW1 ( [facility]) Doxycycline Monohydrate 100 MG Oral Capsule Doxycycline Bullitt hydrate 100 MG 03/27/2019 12:00:00 AM EST 1.0 {capsule} suspend ed Doxycycline Monohydrate 100 MG eCW1 ([facility]) PredniSONE 10 MG (48) PredniSONE 10 MG (48) 03/27/2019 12:00:00 AM EST suspended PredniSONE 10 MG (48) eCW1 ( [facility])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 Name Value Range Interpretation Code Description Data Emily rce(s) Supporting Document(s) SARS coronavirus 2 Ag [facility] This lab was ordered by [facility] and reported by [facility]. ID Date Data Source CHLAMYDIA & GC DNA AMPLIFICAT 11/23/2019 05:48:58 AM EDT eCW 1 ([facility]) Name Value Range Interpretation Code Description Data Emily rce(s) Supporting Document(s) Chlamydia trachomatis rRNA [Presence] in Unspecified specimen by Probe and target amplification method NEGATIVE eCW1 ([facility]) ID Date Data Source [id number] 10/18/2019 01:00:00 PM EDT [facility] Name Value Range Interpretation Code Description Data Emily rce(s) Supporting Document(s) SARS CORONAVIRUS 2 RNA [facility] This lab was ordered by [facility] and reported by [facility]. ID Date Data Source [id number] 09/18/2019 07:33:00 AM EDT [facility] Name: PRISCILLA MAYNARD : 1975 Age: 43 MR#: [id number] Admit Date: 09/18/19 Provider: Dexter Man MD [...] Medication Instructions Recorded Confirmed Last Taken Type H69-bowjqdapmvfd calcium-B6 [Foltx] 1 ea PO DAILY 0509/21/14 [...] Appearance Clear, Urine pH 5.0, Ur Specific [place] 1.035 A, Urine Protein Negative, Urine Ketones [...] % (Auto) 60.7, Lymph % (Auto) 31.4, [place] % (Auto) 5.4, Eos % (Auto) 1.4, [...] rce(s) Supporting Document(s) ID Date Data Source [id number] 09/18/2019 06:46:00 AM EDT [facility] ED Physician Documentation NAME: PRISCILLA MAYNARD : 1975 AGE: 43 MR#: [id number] SERVICE DATE: 09/18/[address]: Elie Ventura [...] Medication Instructions Recorded Confirmed Last Taken Type A83-hplimpitipqv calcium-B6 [Foltx] 1 ea PO DAILY 09/21/14 [...] Appearance Clear, Urine pH 5.0, Ur Specific [place] 1.035 A, Urine Protein Negative, Urine Ketones [...] % (Auto) 60.7, Lymph % (Auto) 31.4, [place] % (Auto) 5.4, Eos % (Auto) 1.4, [...] tablet 15 mg PO DAILY RF: 0 O73-deollgumyzyf calcium-B6 [Foltx] 2-1.13-25 mg tablet 1 ea [...] rce(s) Supporting Document(s) ID Date Data Source [id number] 09/18/2019 04:57:00 AM EDT [facility] [address] [place] [address] [phone] NAME SEX PT STATUS ACCOUNT NUMBER PRISCILLA MAYNARD [facility] ER [id number] ORDERING PHYSICIAN LOCATION MEDICAL RECORD NO. Elie Ventura MD ER [id number] ATTENDING PHYSICIAN DATE OF DATE OF EXAM/TIME [...] rce(s) Supporting Document(s) ID Date Data Source [id number] 09/18/2019 05:26:00 AM EDT [facility] Name Value Range Interpretation Code Description Data Emily rce(s) Supporting Document(s) Leukocytes [#/volume] in Blood by Automated count 7.6 10*3/uL 4.45-10 .71 N [facility] Erythrocytes [#/volume] in Blood by Automated count 3.97 10*6/uL 4.20-5.40 Below low normal [facility] Hemoglobin [Moles/volume] in Blood 12.2 g/dL 10.7-15.4 N [facility] Hematocrit [Volume Fraction] of Blood by Automated count 37.8 % 3 7-47 N [facility] Erythrocyte mean corpuscular volume [Ent itic volume] in Cord blood by Automated count 95.2 fL 80-[address] [facility] Erythrocyte mean corpuscular hemoglobin [Entitic mass] by Automated count 30.7 pg 27-31 N [facility] Erythrocyte mean corpuscular hemoglobin concentration [Mass/volume] in Cord blood 32.3 g/dL 33-37 Below low normal [facility] Erythrocyte distribution width [Entitic volume] by Automated count 13 % 11-15 N [facility] Platelets [#/volume] in Blood by Automated count 315 10*3/uL 130-472 N [facility] Platelet mean volume [Entitic volume] in Blood 9.6 fL 9.1-13.1 N [facility] Neutrophils/100 leukocytes in Blood by Automated count 60.7 % 41- 77 N [facility] Neutrophils [#/volume] in Blood by Automated count 4.6 U 1.7-7.6 N [facility] Lymphocytes/100 leukocytes in Blood by Automated count 31.4 % 14- 46 N [facility] Lymphocytes [#/volume] in Blood by Automated count 2.4 U 0.6-4.6 N [facility] Monocytes/100 leukocytes in Blood by Automated count 5.4 % 4-12 N [facility] Monocytes [#/volume] in Blood by Automated count 0.4 U 0.2-1.2 N [facility] Eosinophils/100 leukocytes in Blood by Automated count 1.4 % 0-7 N [facility] Eosinophils [#/volume] in Blood by Automated count 0.1 U 0.0-0.5 N [facility] Basophils/100 leukocytes in Blood by Automated count 0.8 % 0.4-1 .3 N [facility] Basophils [#/volume] in Blood by Automated count 0.1 U 0.0-0.2 N [facility] NUCLEATED RED BLOOD CELL 0 % [facility] NUCLEATED RED BLOOD CELL# 0 U [facility] Immature granulocytes [Presence] in Blood by Automated count 0-2 N [facility] Immature granulocytes [#/volume] in Blood by Automated count 0.0 U 0-0.1 N [facility] Manual Differential panel - Blood NO [facility] ID Date Data Source [id number] 09/18/2019 [facility]:30[facility] Name Value Range Interpretation Code Description Data Emily rce(s) Supporting Document(s) Troponin I.cardiac [Mass/volume] in Serum or Plasma Less Than 0.015 0.00-0.09 [facility] Less than 0.09 NG/ML Negative0.10 - 0.77 NG/ML High Risk0.78 NG/ML or Greater PositiveThe WHO defined the cutoff (definition for diagnosis of SC)for this method as 0.78 ng/ml. ID Date Data Source [id number] 09/18/2019 05:24:[facility] Lab may order repe at test if initial test elevatedPhysician If elevated, reflex second test in 4-6 hrs Name Value Range Interpretation Code Description Data Emily rce(s) Supporting Document(s) Lactic w Rfx (if elevated) 2.1 mmol/L 0.5-2.2 N [facility] Taken to Nathalie Beyer @ 0425 by [place]. Resultsread back. ID Date Data Source [id number] 09/18/2019 05:24:00 AM [facility] Special Instructions: Lab may order repe at test if initial test elevatedPhysician If elevated, reflex second test in 4-6 hrs Name Value Range Interpretation Code Description Data Emily rce(s) Supporting Document(s) Urea nitrogen [Mass/volume] in Serum or Plasma 15 mg/dL 9-23 N [facility] Sodium [Moles/volume] in Serum or Plasma 142 mmol/L 132-146 N [facility] Potassium [Moles/volume] in Serum or Plasma 3.6 mmol/L 3.5-5.5 [facility] Chloride [Moles/volume] in Serum or Plasma 113 mmol/L 99-109 Above high normal [facility] Carbon dioxide, total [Moles/volume] in Serum or Plasma 20 mmol/L 20 -31 N [facility] Anion gap in Serum or Plasma 13 mmol/L 8-16 N [facility] Glucose [Mass/volume] in Serum or Plasma 121 mg/dL 74-106 Above high normal [facility] Creatinine 0.9 mg/dL 0.5-1.1 [facility] Glomerular filtration rate/1.73 sq M.pre dicted [Volume Rate/Area] in Serum or Plasma Greater Than 60 ABOVE 60 [facility] Alanine aminotransferase [Enzymatic acti vity/volume] in Serum or Plasma by With P-5'-P 21 U/L 10-49 N [facility] ital Aspartate aminotransferase [Enzymatic ac tivity/volume] in Serum or Plasma by With P-5'-P 27 U/L 0-33 N [facility] pital Alkaline phosphatase [Enzymatic activity/volume] in Serum or Plasma 82 U/L 45-129 N [facility] Calcium [Mass/volume] in Serum or Plasma 8.6 mg/dL 8.5-10.1 [facility] Bilirubin.total [Mass/volume] in Serum or Plasma 0.2 mg/dL 0.3-1.2 Below low normal [facility] Albumin [Mass/volume] in Serum or Plasma by Bromocresol purple (BCP) dye binding method 3.7 g/dL 3.2-4.8 [facility] ital Protein [Mass/volume] in Serum or Plasma 7.6 g/dL 5.7-8.2 [facility] ID Date Data Source [id number] 09/18/2019 05:24:00 AM [facility] Special Instructions: Lab may order repe at test if initial test elevatedPhysician If elevated, reflex second test in 4-6 hrs Name Value Range Interpretation Code Description Data Emily rce(s) Supporting Document(s) Amylase [Enzymatic activity/volume] in Serum or Plasma 36 U/L 30- 118 N [facility] ID Date Data Source [id number] 09/18/2019 05:24:[facility] Lab may order repe at test if initial test elevatedPhysician If elevated, reflex second test in 4-6 hrs Name Value Range Interpretation Code Description Data Emily rce(s) Supporting Document(s) Lipase [Enzymatic activity/volume] in Serum or Plasma 116 U/L 73-3 93 N [facility] ID Date Data Source [id number] 09/18/2019 05:27:00 AM EDT [facility] Reason for ordering culture: Abnormal fi ndings UAMethod of Collection:: Voided Name Value Range Interpretation Code Description Data Emily rce(s) Supporting Document(s) Color of Urine [facility] Appearance of Urine CLEAR [facility] pH of Urine by Test strip 5.0 5-8 [facility] Specific gravity of Urine by Refractometry 1.035 1.005 -1.030 Abnormal (applies to non-numeric results) [facility] Leukocyte esterase [Presence] in Urine by Test strip NEGAT [place] [facility] Nitrite [Presence] in Urine by Test strip NEGATIVE [facility] Protein [Presence] in Urine by Test strip NEGATIVE [facility] Glucose [Mass/volume] in Urine by Automated test strip NEGATIVE NEG ATIVE [facility] Ketones [Presence] in Urine by Test strip NEGATIVE [facility] Urobilinogen [Presence] in Urine 0.2-1 EU/dl [facility] Bilirubin.total [Presence] in Urine by Automated test strip NEGATIVE [facility] Erythrocytes [#/volume] in Urine by Test strip NEGATIVE NEGATIVE [facility] URINE MICROSCOPIC? (CIF) NO [facility] ID Date Data Source SYPHILIS ANTIBODY (RPR SCREEN) 09/18/2019 12:00:00 AM EDT eC W1 ([facility]) Name Value Range Interpretation Code Description Data Emily rce(s) Supporting Document(s) NONREACTIVE NONREACTIVE SYPHILIS eCW1 ([facility]) ID Date Data Source PT & APTT 09/18/2019 12:00:00 AM EDT eCW1 ([facility]) Name Value Range Interpretation Code Description Data Emily rce(s) Supporting Document(s) 1.14 INR eCW1 ([facility]) 14.3 11.8-14.0 PROTHROMBIN TIME eCW1 ([facility]) 34.8 25.0-38.4 PARTIAL THROMBOPLASTIN TI ME eCW1 ([facility]) ID Date Data Source CBC with Differential 09/18/2019 12:00:00 AM EDT eCW1 ([facility]) Name Value Range Interpretation Code Description Data Emily rce(s) Supporting Document(s) 7.4 4.0-10.0 WHITE BLOOD COUNT eCW1 ([facility]) 3.92 4.00-5.40 RED BLOOD COUNT eCW1 ([facility]) 12.0 12.0-15.5 HEMOGLOBIN eCW1 ([facility]) 37.7 36.0-47.0 HEMATOCRIT eCW1 ([facility]) 96.2 80.0-96.0 MEAN CORPUSCULAR VOLUME e CW1 ([facility]) 31.8 32.0-36.5 MEAN CORPUSCULAR HGB CONC eCW1 ([facility]) 30.6 27.0-33.0 MEAN CORPUSCULAR HEMOGLOB IN eCW1 ([facility]) 13.3 11.5-14.5 RED CELL DISTRIBUTION WID TH eCW1 ([facility]) 332 150-450 PLATELET COUNT, AUTOMATED eCW1 ([facility]) 50.0 36.0-66.0 NEUTROPHILS % eCW1 ([facility]) 37.8 24.0-44.0 LYMPH % eCW1 ([facility]) 2.7 0.0-3.0 EOS % eCW1 ([facility]) 8.6 0.0-5.0 MONO % eCW1 ([facility]) 0.8 0.0-1.0 BASO % eCW1 ([facility]) 3.7 1.5-8.5 NEUTROPHILS # eCW1 ([facility]) 2.8 1.5-5.0 LYMPH # eCW1 ([facility]) 0.6 0.0-0.8 MONO # eCW1 ([facility]) 0.1 0.0-0.2 BASO # eCW1 ([facility]) 0.2 0.0-0.5 EOS # eCW1 ([facility]) ID Date Data Source [id number] 08/06/2019 10:34:00 AM EDT [facility] [address] [place] [address] PHONE: [phone] FAX: [phone] Name .................. : CAESAR Turcios Acct Number.................. : [id number] ROOM. ................. : [facility] MR Number ................... : [id number] Stay type ............. : E/R Discharge Date......... ... : Admit Date ......... : 08/02/19 Admit Phys .................... : FEDERICO STEVENS Date of ....... : 1975 Family Phys ................... : MONE FARAH Phone .................. : [phone] Age ................................ : 43 Film# .................. .:[id number] Sex ................................. : F Unsigned transcriptions are preliminary reports and do not represent a medical or legal document CHEST PORTABLE [id number] COMPLETE:08/02/19 21:20 [id number] Reason(s): Chest Pain PORTABLE CHEST X-RAY: COMPARISON: [...] rce(s) Supporting Document(s) ID Date Data Source [id number] 08/06/2019 10:08:00 AM EDT [facility] [address] [place] [address] PHONE: [phone] FAX: [phone] Name .................. : CAESAR Turcios Acct Number.................. : [id number] ROOM. ................. : 109-1 MR Number ................... : [id number] Stay type ............. : O/P Discharge Date......... ... : Admit Date ......... : 08/02/19 Admit Phys .................... : RANDI Date of ....... : 1975 Family Phys ................... : MONE FARAH Phone .................. : [phone] Age ................................ : 43 Film# .................. .:[id number] Sex ................................. : F Unsigned transcriptions are preliminary reports and do not represent a medical or legal document [place] [id number] COMPLETE:08/03/19 17:31 GSP [id number] (REASON FOR PROCESS: PAIN LEFT UPPER EXTREMITY [...] rce(s) Supporting Document(s) ID Date Data Source [id number] 08/04/2019 12:52:00 [place] [address] RESPIRATORY CARE REPORT ==== ---------NAME------- NUMBER SEX AGE ADMIT DISC. XRAY# F/C TYPEGRSHANICE Turcios [id number] F 43 08/02/19 08/04/19414781 X6B O/P DATE OF : 1975 M/R# [id number] #: [id number] LOCATION: EMERGENCY DEPT EKG 13859 COMP LETE:08/03/19 09:45 CJM [id number] PHYSICIAN: RANDI Name Value Range Interpretation Code Description Data Emily rce(s) Supporting Document(s) ID Date Data Source [id number] 08/04/2019 12:51:00 PM EDT [facility] [address] [facility] [place] [address] RESPIRATORY CARE REPORT ==== ---------NAME------- NUMBER SEX AGE ADMIT DISC. XRAY# F/C TYPEGRUBBS PRISCILLA L [id number] F 43 08/02/19 08/04/19 [id number] X6B O/P DATE OF : 1975 M/R# [id number] #: [id number] LOCATION: EMERGENCY DEPT EKG 00190 COMP LETE:08/03/19 09:45 CJM [id number] PHYSICIAN: RANDI STEVENS Name Value Range Interpretation Code Description Data Emily rce(s) Supporting Document(s) ID Date Data Source [id number] 08/04/2019 08:08:00 AM EDT [facility] Name Value Range Interpretation Code Description Data Emily rce(s) Supporting Document(s) TROPONIN T 0.01 NG/ML 0.00 - 0.10 [facility] spital TROPONIN T0.1 ng/ml Recommended as the c linical threshold value forTroponin T. ID Date Data Source [id number] 08/04/2019 08:07:00 AM EDT [facility] Name Value Range Interpretation Code Description Data Emily rce(s) Supporting Document(s) COMPREHENSIVE METABOLIC PANEL [facility] COMPREHENSIVE METABOLIC PANEL Sodium [Moles/volume] in Serum or Plasma 143 mEq/L 134 - 153 [facility] Potassium [Moles/volume] in Serum or Plasma 3.8 mEq/L 3.6 - 5.0 [facility] Chloride [Moles/volume] in Serum or Plasma 109 mEq/L 98 - 107 H [facility] Carbon dioxide, total [Moles/volume] in Serum or Plasma 25 MEQ/L 22 - 30 [facility] Glucose [Mass/volume] in Serum or Plasma 89 MG/DL 65 - 110 [facility] BUN 11 MG/DL 7 - 21 [facility] Creatinine [Mass/volume] in Serum or Plasma 0.7 MG/DL 0.7 - 1.5 [facility] BUN/CREAT 16 8 - 27 [facility] al Protein [Mass/volume] in Serum or Plasma 6.4 G/DL 6.3 - 8.2 [facility] Albumin [Mass/volume] in Serum or Plasma 3.8 G/DL 3.9 - 5.0 L [facility] Globulin [Mass/volume] in Serum by calculation 2.6 GM/DL 2.4 - 3.2 [facility] A/G RATIO 1.5 0.8 - 2.0 [facility] Calcium [Mass/volume] in Serum or Plasma 9.1 MG/DL 8.4 - 10.2 [facility] Bilirubin.total [Mass/volume] in Serum or Plasma <0.7 MG/DL 0.2 - 1.3 [facility] Alkaline phosphatase [Enzymatic activity/volume] in Serum or Plasma 76 U/L 38 - 126 [facility] Aspartate aminotransferase [Enzymatic activity/volume] in Serum or Plasma 19 U/L 5 - 40 [facility] Alanine aminotransferase [Enzymatic activity/volume] in Seru m or Plasma 10 U/L 7 - 56 [facility] Anion gap 3 in Serum or Plasma 9.0 mmol/L 8.0 - 16.0 [facility] AGE 43 yrs [facility] al NON-AA GFR >60 mL/min [facility] ital AFR AMER GFR >60 mL/min [facility] Ho spital Male GFR In terprentation 20-49 [...] >32 mL/min Normal ID Date Data Source [id number] 08/04/2019 07:24:00 AM EDT [facility] Name Value Range Interpretation Code Description Data Emily rce(s) Supporting Document(s) CBC W/AUTOMATED DIFF [facility] COMPLETE BLOOD COUNT Leukocytes [#/volume] in Blood by Automated count 4.8 10^3/uL 4.2 - 1 1.0 [facility] Erythrocytes [#/volume] in Blood by Automated count 4.04 10^6/uL 4. 20 - 5.40 L [facility] Hemoglobin [Mass/volume] in Blood 12.2 g/dL 12.0 - 16.0 [facility] Hematocrit [Volume Fraction] of Blood by Automated count 38.1 % 3 7.0 - 47.0 [facility] Erythrocyte mean corpuscular volume [Entitic volume] by Auto mated count 94.3 fL 81.0 - 101 [facility] Erythrocyte mean corpuscular hemoglobin [Entitic mass] by Automated count 30.2 pg 27.0 - 34.0 [facility] Erythrocyte mean corpuscular hemoglobin concentration [Mass/volume] by Automated count 32.0 g/dL 31.0 - 36.0 [facility] Erythrocyte distribution width [Ratio] by Automated count 13.2 % 11.5 - 14.5 [facility] Platelets [#/volume] in Blood by Automated count 258 10^3/uL 150 - 45 0 [facility] Platelet mean volume [Entitic volume] in Blood by Automated count 9.5 fL 7.4 - 10.4 [facility] Neutrophils/100 leukocytes in Blood by Automated count 41.9 % 37. 0 - 80.0 [facility] Lymphocytes/100 leukocytes in Blood by Manual count 45.1 % 25.0 - 40.0 H [facility] Monocytes/100 leukocytes in Blood by Automated count 8.5 % 3.0 - 8.0 H [facility] Eosinophils/100 leukocytes in Blood by Automated count 3.3 % 0.0 - 7.0 [facility] Basophils/100 leukocytes in Blood by Automated count 1.0 % 0.0 - 2.5 [facility] %IG 0.2 % 0.0 - 0.0 H [facility] al %NRBC 0.0 % 0.0 - 0.0 [facility] al Neutrophils [#/volume] in Blood by Automated count 2.02 10^3/uL 2.00 - 6.90 [facility] Lymphocytes [#/volume] in Blood by Automated count 2.18 10^3/uL 0.60 - 3.40 [facility] Monocytes [#/volume] in Blood by Automated count 0.41 10^3/uL 0.00 - 0.90 [facility] Eosinophils [#/volume] in Blood by Automated count 0.16 10^3/uL 0.00 - 0.70 [facility] Basophils [#/volume] in Blood by Automated count 0.05 10^3/uL 0.00 - 0.20 [facility] #IG 0.01 10^3/uL 0.00 - 0.10 [facility] H ospital #NRBC 0.00 10^3/uL 0.00 - 0.00 [facility] H ospital MANUAL DIFF NOT INDICATED [facility] RBC MORPH NOT INDICATED [facility] spital ID Date Data Source [id number] 08/04/2019 12:15:00 AM EDT [facility] Name Value Range Interpretation Code Description Data Emily rce(s) Supporting Document(s) HCG URINE QUAL NEGATIVE NORMAL: NEGATIVE [facility] HCG URINE QL REENTER NEGATIVE NORMAL: NEGATIVE [facility] { KIT LOT # [id number] ){ KIT EXP DATE 02-11-21 ){ PROCEDURAL CONTROL VALID ) ID Date Data Source [id number] 08/03/2019 01:01:00 PM EDT [facility] Name Value Range Interpretation Code Description Data Emily rce(s) Supporting Document(s) TROPONIN T 0.01 NG/ML 0.00 - 0.10 [facility] Ho spital TROPONIN T0.1 ng/ml Recommended as the c linical threshold value forTroponin T. ID Date Data Source [id number] 08/03/2019 06:15:00 AM EDT [facility] Name Value Range Interpretation Code Description Data Emily rce(s) Supporting Document(s) CVE PANEL [facility] al LIPID PANEL Cholesterol [Mass/volume] in Serum or Plasma 182 MG/DL 131 - 200 [facility] Deprecated Triglyceride [Mass/volume] in Serum or Plasma 156 MG/DL 3 5 - 160 [facility] HDL 59 MG/DL 29 - 86 [facility] al Cholesterol in LDL/Cholesterol in HDL [Mass Ratio] in Serum or Plasma 111 mg/dL 65 - 175 [facility] Cholesterol.total/Cholesterol in HDL [Mass Ratio] in Serum o r Plasma 3.1 3.2 - 4.4 L [facility] LDL/HDL 1.88 1.47 - 3.22 [facility] ital CVE RISK CHOL/HDL LDL/HDLMEN: 1/2 AVERAGE 3.43 1.00 AVERAGE 4.97 3.55 2X AVERAGE 9.55 6.25 3X AVERAGE 23.99 7.99WOMEN: 1/2 AVERAGE 3.27 1.47 AVERAGE 4.44 3.22 2X AVERAGE 7.05 5.03 3X AVERAGE 11.04 6.14 ID Date Data Source [id number] 08/03/2019 06:15:00 AM EDT [facility] Name Value Range Interpretation Code Description Data Emily rce(s) Supporting Document(s) COMPREHENSIVE METABOLIC PANEL [facility] COMPREHENSIVE METABOLIC PANEL Sodium [Moles/volume] in Serum or Plasma 141 mEq/L 134 - 153 [facility] Potassium [Moles/volume] in Serum or Plasma 3.6 mEq/L 3.6 - 5.0 [facility] Chloride [Moles/volume] in Serum or Plasma 107 mEq/L 98 - 107 [facility] Carbon dioxide, total [Moles/volume] in Serum or Plasma 23 MEQ/L 22 - 30 [facility] Glucose [Mass/volume] in Serum or Plasma 96 MG/DL 65 - 110 [facility] BUN 16 MG/DL 7 - 21 [facility] al Creatinine [Mass/volume] in Serum or Plasma 0.8 MG/DL 0.7 - 1.5 [facility] BUN/CREAT 20 8 - 27 [facility] al Protein [Mass/volume] in Serum or Plasma 6.4 G/DL 6.3 - 8.2 [facility] Albumin [Mass/volume] in Serum or Plasma 4.0 G/DL 3.9 - 5.0 [facility] Globulin [Mass/volume] in Serum by calculation 2.4 GM/DL 2.4 - 3.2 [facility] A/G RATIO 1.7 0.8 - 2.0 [facility] Calcium [Mass/volume] in Serum or Plasma 8.8 MG/DL 8.4 - 10.2 [facility] Bilirubin.total [Mass/volume] in Serum or Plasma <0.7 MG/DL 0.2 - 1.3 [facility] Alkaline phosphatase [Enzymatic activity/volume] in Serum or Plasma 76 U/L 38 - 126 [facility] Aspartate aminotransferase [Enzymatic activity/volume] in Serum or Plasma 21 U/L 5 - 40 [facility] Alanine aminotransferase [Enzymatic activity/volume] in Seru m or Plasma 12 U/L 7 - 56 [facility] Anion gap 3 in Serum or Plasma 11.0 mmol/L 8.0 - 16.0 [facility] 43 [facility] >60 mL/min [facility] ital AFR AMER GFR >60 mL/min [facility] spital Male GFR In terprentation 20-49 [...] >32 mL/min Normal ID Date Data Source [id number] 08/03/2019 06:13:00 AM EDT [facility] Name Value Range Interpretation Code Description Data Emily rce(s) Supporting Document(s) TROPONIN T 0.01 NG/ML 0.00 - 0.10 [facility] Ho spital TROPONIN T0.1 ng/ml Recommended as the c linical threshold value forTroponin T. ID Date Data Source [id number] 08/03/2019 05:50:00 AM EDT [facility] Name Value Range Interpretation Code Description Data Emily e(s) Supporting Document(s) Hemoglobin A1c/Hemoglobin.total in Blood 5.1 % 4.4 - 6.1 [facility] {A1]{HB] ID Date Data Source [id number] 08/03/2019 05:39:00 AM EDT [facility] Name Value Range Interpretation Code Description Data Emily rce(s) Supporting Document(s) CBC W/AUTOMATED DIFF [facility] COMPLETE BLOOD COUNT Leukocytes [#/volume] in Blood by Automated count 6.3 10^3/uL 4.2 - 1 1.0 [facility] Erythrocytes [#/volume] in Blood by Automated count 3.91 10^6/uL 4. 20 - 5.40 L [facility] Hemoglobin [Mass/volume] in Blood 12.0 g/dL 12.0 - 16.0 [facility] Hematocrit [Volume Fraction] of Blood by Automated count 36.9 % 3 7.0 - 47.0 L [facility] Erythrocyte mean corpuscular volume [Entitic volume] by Auto mated count 94.4 fL 81.0 - 101 [facility] Erythrocyte mean corpuscular hemoglobin [Entitic mass] by Automated count 30.7 pg 27.0 - 34.0 [facility] Erythrocyte mean corpuscular hemoglobin concentration [Mass/volume] by Automated count 32.5 g/dL 31.0 - 36.0 [facility] Erythrocyte distribution width [Ratio] by Automated count 13.5 % 11.5 - 14.5 [facility] Platelets [#/volume] in Blood by Automated count 264 10^3/uL 150 - 45 0 [facility] Platelet mean volume [Entitic volume] in Blood by Automated count 9.2 fL 7.4 - 10.4 [facility] Neutrophils/100 leukocytes in Blood by Automated count 47.8 % 37. 0 - 80.0 [facility] Lymphocytes/100 leukocytes in Blood by Manual count 41.5 % 25.0 - 40.0 H [facility] Monocytes/100 leukocytes in Blood by Automated count 7.7 % 3.0 - 8.0 [facility] Eosinophils/100 leukocytes in Blood by Automated count 2.2 % 0.0 - 7.0 [facility] Basophils/100 leukocytes in Blood by Automated count 0.5 % 0.0 - 2.5 [facility] %IG 0.3 % 0.0 - 0.0 H [facility] al %NRBC 0.0 % 0.0 - 0.0 [facility] al Neutrophils [#/volume] in Blood by Automated count 2.99 10^3/uL 2.00 - 6.90 [facility] Lymphocytes [#/volume] in Blood by Automated count 2.60 10^3/uL 0.60 - 3.40 [facility] Monocytes [#/volume] in Blood by Automated count 0.48 10^3/uL 0.00 - 0.90 [facility] Eosinophils [#/volume] in Blood by Automated count 0.14 10^3/uL 0.00 - 0.70 [facility] Basophils [#/volume] in Blood by Automated count 0.03 10^3/uL 0.00 - 0.20 [facility] #IG 0.02 10^3/uL 0.00 - 0.10 [facility] H ospital #NRBC 0.00 10^3/uL 0.00 - 0.00 [facility] H ospital MANUAL DIFF NOT INDICATED [facility] RBC MORPH NOT INDICATED [facility] spital ID Date Data Source [id number] 08/02/2019 08:59:00 PM EDT [facility] 1 OrderSheet [facility] Emergency Department [address] [place] [address] Phone #: ext- [phone] 08/02/2019 20:56 Patient: [...] M.D.;DIAGNOSTIC STUDY ORDERSOrder Description Priority Entered Acknowledged [facility]ed[facility] Portable 1 STAT 21:20 08/02/2019 21:21 Junie Abreu Riccardo Tiffany R.N.(Oxygen?(No)) Kendall; Reason for Study: Chest PainCT CTA CHEST STAT 22:36 08/02/2019 Ack'd: 22:37 22:58 Sarah(NONCOR) Stefani Raymundo Tamra R.N. Walters RNINC PP Kendall;(Oxygen?(No))(IV?(Yes)) Reason for Study: chest pain, left side, Hx of PE, on Xarelto 2 OrderSheet [facility] Emergency Department [address] [place] [address] Phone #: ext- [phone] 08/02/2019 20:56 [id number] Sex: F : 1975 Age: 43yMEDICATION/IV/DRIP/FLUID ORDERSOrder [...] 21:20 08/02/2019 21:21 Brady,Monitor Stefani Caballero R.N. M.D.;Operations Administrative Assistant 21:20 08/02/2019 21:21 Brady(continuous) Stefani Caballero R.N. M.D.;EKG 21:20 08/02/2019 21:21 Federico Abreu Riccardo Tiffany R.N. M.D.;NPO 21:20 08/02/2019 21:21 Federico Abreu Riccardo Tiffany R.N. M.D.;Obtain Old EKG 21:20 08/02/2019 21:21 Federico Abreu Riccardo Tiffany R.N. M.D.;Obtain Old Records 21:20 08/02/2019 21:21 Federico Abreu Riccardo Tiffany R.N. M.D.;Oxygen titrate to 21:20 08/02/2019 21:21 Brady,92% Stefani Caballero R.N. M.D.;Pulse oximeter 21:20 08/02/2019 21:21 Brady(Continuous) Stefani Caballero.N. M.DGeorgina; 3 OrderSheet [facility] Emergency Department [address] [place] [address] Phone #: ext- [phone] 08/02/2019 20:56 Patient: [...] rce(s) Supporting Document(s) ID Date Data Source [id number] 08/02/2019 08:59:00 PM EDT [facility] 1 Medication Reconciliation Report [facility] Emergency Department [address] [place] [address] Phone #: ext- [phone] 08/02/2019 20:56 Patient: [...] Oral (10 mg) 1 tablet, last dose: [id number] Omeprazole Oral 40 mg, 2x a [...] 08/02/2019 9:45:00 PM 2 Medication Reconciliation Report [facility] Emergency Department [address] [place] [address] Phone #: ext- [phone] 08/02/2019 20:56 Patient: PRISCILLA MAYNARD Sex: F : 1975 Age: 43yPHENERGAN [IVP] IVP 12.5 mg, administered: 08/02/2019 11:30:00 PMNS [IV] IV Fluids bolus 0, then 125 mL/hr, administered: 08/03/2019 12:55:00 AMThe following Medications were prescribed to the patient:None. Name Value Range Interpretation Code Description Data Emily rce(s) Supporting Document(s) ID Date Data Source [id number] 08/02/2019 08:59:00 PM EDT [facility] 1 Medication Administration Record [facility] Emergency Department [address] [place] [address] Phone #: ext- [phone] 08/02/2019 20:56 Patient: PRISCILLA MAYNARD Sex: F : 1975 Age: 43yWeight: 104.3 kgHeight/Length: 62 inBMI: 42.1ALLERGIES: Cymbalta, Butrans, Neurontin, NSAIDs, Vioxx Date/Time Medication Administered Medication OrderedGiven NITROGLYCERIN [TOPICAL OINTMENT] NitroGLYCERIN Ehnldbt92:45 08/02/2019 Dose: 0.5 in. Ointment Topical Ointment [...] rce(s) Supporting Document(s) ID Date Data Source [id number] 08/02/2019 08:59:00 PM EDT [facility] 1 General Instructions [facility] Emergency Department [address] [place] [address] Phone #: ext- [phone] 08/02/2019 20:56 Patient: PRISCILLA MAYNARD Sex: F : 1975 Age: 43yPrecordial chest pain characterized as "discomfort"(Rule out SC).(Electronically signed by Stefani Caballero M.D. 08/03/2019 05:22) Name Value Range Interpretation Code Description Data Emily rce(s) Supporting Document(s) ID Date Data Source [id number] 08/02/2019 08:59:00 PM EDT [facility] 1 Clinical Report - Nurses [facility] Emergency Department [address] [place] [address] Phone #: ext- [phone] 08/02/2019 20:56 Patient: [...] 1 tablet, 2x a day. --21:47 08/02/19 Sarah Islas RN Maxalt Oral (Tablet 10 mg) 1 tablet, last dose [id number] 1500. --21:48 08/02/19 Sarah Islas RNThe following entry was struck by Sarah [...] R.N. .Allergies 2 Clinical Report - Nurses [facility] Emergency Department [address] [place] [address] Phone #: ext- [phone] 08/02/2019 20:56 Patient: [...] factors identified. 3 Clinical Report - Nurses [facility] Emergency Department [address] [place] [address] Phone #: ext- [phone] 08/02/2019 20:56 Patient: [...] Patient ready for evaluation. --21:13 08/02/19 Sarah Isals RN 21:36 08/02/2019 Two (2) unsuccessful IV [...] Patient transported to CT by wheelchair with database software technician. --22:51 08/02/19 Sarah Islas RN 23:07 [...] Islas RN 4 Clinical Report - Nurses [facility] Emergency Department [address] [place] [address] Phone #: ext- [phone] 08/02/2019 20:56 Patient: PRISCILLA MAYNARD Sex: F : 1975 Age: 43y22:41 08/02/2019 Site #1 started via IV in the left antecubital space with an 20g angiocath, with aseptictechnique and good blood return; one attempt. Saline lock flushed with 10 mL saline (by Moses Lu RN).--22:51 08/02/19 Sarah Islas RN22:57 08/02/19. Patient returned from CT by wheelchair with database software technician. --23:07 08/02/19 HUBER Muse23:25 08/02/2019 NITROGLYCERIN [...] HUBER Muse 5 Clinical Report - Nurses [facility] Emergency Department [address] [place] [address] Phone #: ext- [phone] 08/02/2019 20:56 [id number] Sex: F : 1975 Age: 43y 22:00 [...] rce(s) Supporting Document(s) ID Date Data Source [id number] 08/02/2019 08:59:00 PM EDT [facility] 1 Clinical Report - Physicians/Mid Levels [facility] Emergency Department [address] [place] [address] Phone #: ext- [phone] 08/02/2019 20:56 Patient: [...] then left sided chest pain 3.5 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 Similar symptoms previously. Patient has had similar symptoms occasionally. ( last time 1 yr ago, no stress test or echo or cardiology; was told it was anxiety). Recent medical care: The patient was seen recently in a clinic. ( RETREAD TECHNICIAN, sent to ER for eval.).REVIEW OF SYSTEMSNo [...] Repair. 2 Clinical Report - Physicians/Mid Levels [facility] Emergency Department [address] [place] [address] Phone #: ext- [phone] 08/02/2019 20:56 Patient: [...] normal. 3 Clinical Report - Physicians/Mid Levels [facility] Emergency Department [address] [place] [address] Phone #: ext- [phone] 08/02/2019 20:56 -------- [...] CHEST NON-CORONARY W CON INC PP INSTITUTION: [facility] ORDERING PHYSICIAN: Stefani Caballero PATIENT HISTORY: chest pain, left side, Hx of PE, on Xarelto ACC DLP- 782.3mGy*cm PT HX OF HYSTERECTOMY. VERIFIED 2 IDENTIFIERS. TIME OUT PERFORMED. ISOVUE 370 USED 75ML, LOT [id number], EXP JAN 2022. BUN 16, CREATININE 0.9, [...] Impression 4 Clinical Report - Physicians/Mid Levels [facility] Emergency Department [address] [place] [address] Phone #: ext- [phone] 08/02/2019 20:56 Patient: PRISCILLA MAYNARD Sex: F : 1975 Age: 43yNo evidence of pulmonary embolus.Electronically signed on Aug 02, 2019 11:17:25 PM EDT by:Mo Reddy, [place] [employer]. The CTA was performed with contrast. The study wasinterpreted by the radiologist.Laboratory Tests: Laboratory tests have been ordered, with results reviewed and considered in themedical decision making process.CT CTA CHEST NON-CORONARY W CON INC PP: (COCO: 08/02/2019 22:36) ( MsgRcvd 08/02/2019 23:18)Final results Test Result Flag Units (Reference) CT CTA CHEST NON-CORONARY W [facility] [address] [place] [address] ---------NAME--------- NUMBER SEX AGE ADMIT DISC. XRAY# F/C TYPE CAESAR Turcios [id number] F 43 08/02/19 X6B E/R DATE OF : 1975 M/R# [id number] #: [id number] TR-03 LOCATION: EMERGENCY DEPT TRANSCRIBED: 08/02/19 23:[address] CTA CHEST NON-CORONARY W [id number] COMPLETED:08/02/19 23:02 KJE [id number] Reason(s): chest pain, left side, Hx of PE, on Xarelto -- PHYSICIAN: FEDERICO STEVENS -- -- R A D I O L O G Y R E P O R T -- PATIENT HISTORY: chest pain, left side, Hx of PE, on Xarelto ACC DLP- 782.3mGy*cm -- PT HX OF HYSTERECTOMY. VERIFIED 2 IDENTIFIERS. TIME OUT PERFORMED. ISOVUE 370 USED 75ML, LOT [id number], EXP JAN 2022. BUN 16, CREATININE 0.9, [...] -- 5 Clinical Report - Physicians/Mid Levels [facility] Emergency Department [address] [place] [address] Phone #: ext- [phone] 08/02/2019 20:56 Patient: [...] Male GFR Interprentation 20-49 yrs >60 mL/min Tpiamz75-44 yrs >56 mL/min Normal 60- 69 yrs >49 mL/min Normal 70-79yrs>42 mL/min Normal 80 and above >35 mL/min Normal Female GFRInterpretation 20-39 yrs >60 mL/min Normal 40-49 yrs >58 mL/minNormal 50-59 yrs >51 mL/min Normal 60-69 yrs >45 mL/min Normal 6 Clinical Report - Physicians/Mid Levels [facility] Emergency Department [address] [place] [address] Phone #: ext- [phone] 08/02/2019 20:56 Patient: PRISCILLA MAYNARD Sex: F : 1975 Age: 61u69-54 yrs >39 mL/min Normal 80 and above [...] VenousThrombosis, Pulmonary Embolus, Tissue heart valves, Acute SC Atrial Fibrillation, Valvular heart diseaseand recurrent Systemic Embolism. -International Normalized Ratio (INR): 2.5 - 3.5 forMechanical Prosthetic valve. \\BLDo\\PTT INTERPRETATION\\BLDx\\Critical results for patients not on therapy: >50 seconds Critical results for patients on therapy:>119 seconds Therapeutic range for patients on therapy: 58 - 90 seconds Coag studies fromline draws may not be accurate due to Heparin and other interferences.Troponin-T: (COCO: 08/02/2019 21:28) ( [facility] 08/02/2019 21:56) Final results Test Result Flag Units (Reference) TROPONIN T 0.01 NG/ML (0.00 - 0.10) TROPONIN T0.1 ng/ml Recommended as the clinical threshold value forTroponin T.D-Dimer: (COCO: 08/02/2019 21:28) ( [facility] 08/02/2019 21:56) Final results Test Result Flag Units (Reference) D-DIMER QUANT 0.55 H ug/mL (0.27 - 0.50)Chest Portable 1 View: (COCO: 08/02/2019 21:20) ( [facility] 08/02/2019 21:45) In Progress Exam CHEST PORTABLE [facility] [address] [place] [address] PHONE: [phone] FAX: [phone] Name .................. : CAESAR PRISCILLA Karolina Acct Number.................. : [id number] ROOM. ................. : TR-03 MR Number ................... : [id number] Stay type ............. : E/R Discharge Date......... ... : Admit Date ......... : 08/02/19 Admit Phys .................... : FEDERICO STEVENS Date of ....... : 1975 Family Phys ................... : SHORE MAR Phone .................. : [phone] Age ........................ ........ : 43 Film# .................. .:[id number] Sex ................................. : F Unsigned transcriptions are preliminary reports and do not represent a medical or legal document CHEST PORTABLE [id number] COMPLETE:08/02/19 21:20 [id number] Reason(s): Chest Pain PORTABLE CHEST X- RAY: COMPARISON: None available. FINDINGS: There is no acute consolidation or congestive heart failure. The heart is not enlarged. There is no hilar adenopathy. IMPRESSION: No evidence of significant acute pulmonary disease. 7 Clinical Report - Physicians/Mid Levels [facility] Emergency Department [address] [place] [address] Phone #: [phone] 08/02/2019 20:56 Patient: PRISCILLA MAYNARD Sex: F [...] echocardiogram done; will admit overnight to r/o SC;case discussed w Humaira Antony, [employer] hospitalist, who agrees. Critical care performed (60 [...] Precordial chest pain characterized as "discomfort"(Rule out SC).(Electronically signed by Stefani Caballero M.D. 08/03/2019 05:22) Name Value Range Interpretation Code Description Data Emily rce(s) Supporting Document(s) ID Date Data Source [id number] 08/02/2019 11:17:00 PM EDT [facility] [address] [place] [address] ---------NAME--------- NUMBER SEX AGE ADMIT DISC. XRAY# F/C TYPE CAESAR Turcios [id number] F 43 08/02/[id number] X6B E/R DATE OF : 1975 M/R# [id number] #: [id number] TR-03 LOCATION: EMERGENCY DEPT TRANSCRIBED: 08/02/19 23:[address] CTA CHEST NON-CORONARY W [id number] COMPLETED:08/02/19 23:02 KJE [id number] Reason(s): chest pain, left side, Hx of PE, on Xarelto PHYSICIAN: FEDERICO RODNEY == R A D I O L O G Y R E P O R T PATIENT HISTORY:chest pain, left side, Hx of PE, on Xarelto ACC DLP- 782.3mGy*cmPT HX OF HYSTERECTOMY. VERIFIED 2 IDENTIFIERS. TIME OUT PERFORMED. ISOVUE 370USED 75ML, LOT [id number], EXP JAN 2022. BUN 16, CREATININE 0.9, [...] rce(s) Supporting Document(s) ID Date Data Source [id number] 08/02/2019 09:56:00 PM T [facility] Name Value Range Interpretation Code Description Data [facility] rce(s) Supporting Document(s) TROPONIN T 0.01 NG/ML 0.00 - 0.10 [facility] spital TROPONIN T0.1 ng/ml Recommended as the c linical threshold value forTroponin T. ID Date Data Source [id number] 08/02/2019 09:56:00 PM EDT [facility] Name Value Range Interpretation Code Description Data [facility] rce(s) Supporting Document(s) Fibrin D-dimer FEU [Mass/volume] in Platelet poor plasma 0.55 ug /mL 0.27 - 0.50 H [facility] ID Date Data Source [id number] 08/02/2019 09:55:00 PM [facility] Name Value Range Interpretation Code Description Data [facility] rce(s) Supporting Document(s) Prothrombin time (PT) 15.6 SECONDS 11.0 - 15.5 H [facility] INR in Platelet poor plasma by Coagulation assay 1.22 0.93 - 1. 23 [facility] aPTT in Blood by Coagulation assay 35.1 SECONDS 24.8 - 36.7 [facility] \\BLDo\\INR INTERPRETATION\\BLDx\\ Therapeutic range for Coumadin and related oral anticoagulants. - International Normalized Ratio (INR): 2.0 - 3.0 for Venous Thrombosis, Pulmonary Embolus, Tissue heart valves, Acute SC Atrial Fibrillation, Valvular heart disease and recurrent [...] and other interferences. ID Date Data Source [id number] 08/02/2019 09:53:00 PM T [facility] Name Value Range Interpretation Code Description Data [facility] rce(s) Supporting Document(s) Lipase [Enzymatic activity/volume] in Serum or Plasma 25 U/L 13 - 60 [facility] ID Date Data Source [id number] 08/02/2019 09:53:00 PM EDT [facility] Name Value Range Interpretation Code Description Data Emily rce(s) Supporting Document(s) COMPREHENSIVE METABOLIC PANEL [facility] COMPREHENSIVE METABOLIC PANEL Sodium [Moles/volume] in Serum or Plasma 141 mEq/L 134 - 153 [facility] Potassium [Moles/volume] in Serum or Plasma 4.1 mEq/L 3.6 - 5.0 [facility] Chloride [Moles/volume] in Serum or Plasma 105 mEq/L 98 - 107 [facility] Carbon dioxide, total [Moles/volume] in Serum or Plasma 25 MEQ/L 22 - 30 [facility] Glucose [Mass/volume] in Serum or Plasma 96 MG/DL 65 - 110 [facility] BUN 16 MG/DL 7 - 21 [facility] Creatinine [Mass/volume] in Serum or Plasma 0.9 MG/DL 0.7 - 1.5 [facility] BUN/CREAT 18 8 - 27 [facility] Protein [Mass/volume] in Serum or Plasma 7.1 G/DL 6.3 - 8.2 [facility] Albumin [Mass/volume] in Serum or Plasma 4.3 G/DL 3.9 - 5.0 [facility] Globulin [Mass/volume] in Serum by calculation 2.8 GM/DL 2.4 - 3.2 [facility] A/G RATIO 1.5 0.8 - 2.0 [facility] Calcium [Mass/volume] in Serum or Plasma 9.3 MG/DL 8.4 - 10.2 [facility] Bilirubin.total [Mass/volume] in Serum or Plasma <0.7 MG/DL 0.2 - 1.3 [facility] Alkaline phosphatase [Enzymatic activity/volume] in Serum or Plasma 85 U/L 38 - 126 [facility] Aspartate aminotransferase [Enzymatic activity/volume] in Serum or Plasma 25 U/L 5 - 40 [facility] Alanine aminotransferase [Enzymatic activity/volume] in Seru m or Plasma 13 U/L 7 - 56 [facility] Anion gap 3 in Serum or Plasma 11.0 mmol/L 8.0 - 16.0 [facility] AGE 43 yrs [facility] Hospit al NON-AA GFR >60 mL/min [facility] Hosp ital AFR AMER GFR >60 mL/min [facility] Ho spital Male GFR In terprentation 20-49 [...] >32 mL/min Normal ID Date Data Source [id number] 08/02/2019 09:38:00 PM EDT [facility] Name Value Range Interpretation Code Description Data Emily rce(s) Supporting Document(s) CBC W/AUTOMATED DIFF [facility] COMPLETE BLOOD COUNT Leukocytes [#/volume] in Blood by Automated count 6.6 10^3/uL 4.2 - 1 1.0 [facility] Erythrocytes [#/volume] in Blood by Automated count 4.15 10^6/uL 4. 20 - 5.40 L [facility] Hemoglobin [Mass/volume] in Blood 12.5 g/dL 12.0 - 16.0 [facility] Hematocrit [Volume Fraction] of Blood by Automated count 39.4 % 3 7.0 - 47.0 [facility] Erythrocyte mean corpuscular volume [Entitic volume] by Auto mated count 94.9 fL 81.0 - 101 [facility] Erythrocyte mean corpuscular hemoglobin [Entitic mass] by Automated count 30.1 pg 27.0 - 34.0 [facility] Erythrocyte mean corpuscular hemoglobin concentration [Mass/volume] by Automated count 31.7 g/dL 31.0 - 36.0 [facility] Erythrocyte distribution width [Ratio] by Automated count 13.5 % 11.5 - 14.5 [facility] Platelets [#/volume] in Blood by Automated count 305 10^3/uL 150 - 45 0 [facility] Platelet mean volume [Entitic volume] in Blood by Automated count 9.3 fL 7.4 - 10.4 [facility] Neutrophils/100 leukocytes in Blood by Automated count 51.6 % 37. 0 - 80.0 [facility] Lymphocytes/100 leukocytes in Blood by Manual count 38.2 % 25.0 - 40.0 [facility] Monocytes/100 leukocytes in Blood by Automated count 7.1 % 3.0 - 8.0 [facility] Eosinophils/100 leukocytes in Blood by Automated count 2.0 % 0.0 - 7.0 [facility] Basophils/100 leukocytes in Blood by Automated count 0.8 % 0.0 - 2.5 [facility] %IG 0.3 % 0.0 - 0.0 H [facility] Hospit al %NRBC 0.0 % 0.0 - 0.0 [facility] al Neutrophils [#/volume] in Blood by Automated count 3.42 10^3/uL 2.00 - 6.90 [facility] Lymphocytes [#/volume] in Blood by Automated count 2.53 10^3/uL 0.60 - 3.40 [facility] Monocytes [#/volume] in Blood by Automated count 0.47 10^3/uL 0.00 - 0.90 [facility] Eosinophils [#/volume] in Blood by Automated count 0.13 10^3/uL 0.00 - 0.70 [facility] Basophils [#/volume] in Blood by Automated count 0.05 10^3/uL 0.00 - 0.20 [facility] #IG 0.02 10^3/uL 0.00 - 0.10 [facility] ospital #NRBC 0.00 10^3/uL 0.00 - 0.00 [facility] H ospital MANUAL DIFF NOT INDICATED [facility] RBC MORPH NOT INDICATED [facility] Ho spital ID Date Data Source [id number] 07/29/2019 10:00:00 AM EDT [facility] Name Value Range Interpretation Code Description Data Emily rce(s) Supporting Document(s) 2019-nCoV N XXX Ql ROBSON N2 [facility] [place] This lab was ordered by [facility] and reported by [facility]. Procedure Social History Code Duration Value Status Description Data Source(s ) Smoking 03/18/2020 12:00:00 AM EST Never Smoker completed Never S moker eCW1 ([facility]) Smoking 03/18/2020 12:00:00 AM EST Never Smoker completed Never S moker eCW1 ([facility]) Smoking 03/03/2020 12:00:00 AM EST Never Smoker completed Never S moker eCW1 ([facility]) Smoking 03/03/2020 12:00:00 AM EST Never Smoker completed Never S moker eCW1 ([facility]) Smoking 03/03/2020 12:00:00 AM EST Never Smoker completed Never S moker eCW1 ([facility]) Smoking 02/14/2020 12:00:00 AM EDT Patient has never smoked co mpleted Patient has never smoked MEDENT ([facility], [facility]) Smoking 11/22/2019 12:00:00 AM EDT Never Smoker completed Never S moker eCW1 ([facility]) Smoking 11/22/2019 12:00:00 AM EDT Never Smoker completed Never S moker eCW1 ([facility]) Smoking 11/22/2019 12:00:00 AM EDT Never Smoker completed Never S moker eCW1 ([facility]) Smoking 11/22/2019 12:00:00 AM EDT Never Smoker completed Never S moker eCW1 ([facility]) Smoking 11/22/2019 12:00:00 AM EDT Never Smoker completed Never S moker eCW1 ([facility]) Smoking 11/22/2019 12:00:00 AM EDT Never Smoker completed Never S moker eCW1 ([facility]) 09/18/2019 06:53:33 AM EDT No completed No [facility] 09/18/2019 06:53:33 AM EDT No completed No [facility] Smoking 09/18/2019 12:00:00 AM EDT Never Smoker completed Never S moker eCW1 ([facility]) Smoking 09/18/2019 12:00:00 AM EDT Never Smoker completed Never S moker eCW1 ([facility]) Smoking 09/18/2019 12:00:00 AM EDT Never Smoker completed Never S moker eCW1 ([facility]) Smoking 09/18/2019 12:00:00 AM EDT Never Smoker completed Never S moker eCW1 ([facility]) Smoking 09/18/2019 12:00:00 AM EDT Never Smoker completed Never S moker eCW1 ([facility]) Vital Signs ID Date Data Source UNK Name Value Range Interpretation Code Description Data Source(s) Diastolic blood pressure 78 mm[Hg] 78 mm[Hg] eCW1 ([facility]) Systolic blood pressure 142 mm[Hg] 142 mm[Hg] e CW1 ([facility]) Body temperature 97.3 [degF] 97.3 [degF] eCW1 ( [facility]) Respiratory rate 18 /min 18 /min eCW1 ([facility]) Heart rate 82 /min 82 /min eCW1 ([facility]) Body mass index (BMI) [Ratio] 44.44 kg/m2 44.44 kg/m2 W1 ([facility]) Body height 62 [in_i] 62 [in_i] eCW1 ([facility]) Body weight 243 [lb_av] 243 [lb_av] eCW1 ([facility]) Diastolic blood pressure 86 mm[Hg] 86 mm[Hg] eCW1 ([facility]) Systolic blood pressure 138 mm[Hg] 138 mm[Hg] e CW1 ([facility]) Body temperature 97.3 [degF] 97.3 [degF] eCW1 ( [facility]) Respiratory rate 18 /min 18 /min eCW1 ([facility]) Heart rate 78 /min 78 /min eCW1 ([facility]) Body mass index (BMI) [Ratio] 42.61 kg/m2 42.61 kg/m2 W1 ([facility]) Body height 62 [in_i] 62 [in_i] eCW1 ([facility]) Body weight 233 [lb_av] 233 [lb_av] eCW1 ([facility], [facility]) Body temperature 96.8 [degF] 96.8 [degF] eCW1 ( [facility]) Respiratory rate 18 /min 18 /min eCW1 ([facility]) Heart rate 84 /min 84 /min eCW1 ([facility]) Body mass index (BMI) [Ratio] 42.98 kg/m2 42.98 kg/m2 eCW1 ([facility]) Body height 62 [in_i] 62 [in_i] eCW1 ([facility]) Body weight 235 [lb_av] 235 [lb_av] eCW1 ([facility], [facility]) Body mass index (BMI) [Ratio] 43.3 kg/m2 43.3 k g/m2 MEDENT ([facility], [facility]) Body height 62 [in_i] 62 [in_i] MEDENT ([facility], [facility]) 5'2" Body weight 237.00 [lb_av] 237.00 [lb_av] MEDEN T ([facility], [facility]) Body temperature 98.5 [degF] 98.5 [degF] MEDENT ([facility], [facility]) Oxygen saturation in Arterial blood by Pulse oximetry 98 % 98 % MEDENT ([facility], [facility]) Respiratory rate 18 /min 18 /min MEDENT ( [facility], [facility]) Heart rate 70 /min 70 /min MEDENT ([facility], [facility]) Diastolic blood pressure 70 mm[Hg] 70 mm[Hg] MEDENT ([facility], [facility]) Systolic blood pressure 105 mm[Hg] 105 mm[Hg] M EDENT ([facility], [facility]) Diastolic blood pressure 82 mm[Hg] 82 mm[Hg] eCW1 ([facility]) Systolic blood pressure 124 mm[Hg] 124 mm[Hg] e CW1 ([facility]) Body mass index (BMI) [Ratio] 41.88 kg/m2 41.88 kg/m2 eCW1 ([facility]) Body height 62 [in_i] 62 [in_i] eCW1 ([facility]) Body weight 103.87 kg 103.87 kg eCW1 ([facility]) Body weight 229 [lb_av] 229 [lb_av] eCW1 ([facility], [facility]) Diastolic blood pressure 74 mm[Hg] 74 mm[Hg] eCW1 ([facility]) Systolic blood pressure 132 mm[Hg] 132 mm[Hg] e CW1 ([facility]) Body temperature 97.1 [degF] 97.1 [degF] eCW1 ( [facility]) Respiratory rate 18 /min 18 /min eCW1 ([facility]) Heart rate 76 /min 76 /min eCW1 ([facility]) Body mass index (BMI) [Ratio] 42.21 kg/m2 42.21 kg/m2 eCW1 ([facility]) Body height 62 [in_us] 62 [in_us] eCW1 ([facility]) Body weight Measured 230.8 [lb_av] 230.8 [lb_av ] eCW1 ([facility]) Diastolic blood pressure 79 mm[Hg] 79 mm[Hg] eCW1 ([facility]) Systolic blood pressure 135 mm[Hg] 135 mm[Hg] e CW1 ([facility]) Body temperature 98.5 [degF] 98.5 [degF] eCW1 ( [facility]) Respiratory rate 20 /min 20 /min eCW1 ([facility]) Heart rate 75 /min 75 /min eCW1 ([facility]) Body mass index (BMI) [Ratio] 42.06 kg/m2 42.06 kg/m2 eCW1 ([facility]) Body height 62 [in_i] 62 [in_i] eCW1 ([facility]) Body weight 230 [lb_av] 230 [lb_av] eCW1 ([facility]) Body mass index (BMI) [Ratio] 43.3 kg/m2 43.3 k g/m2 MEDENT ([facility]) Body height 62 [in_i] 62 [in_i] MEDENT ([facility], [facility]) 5'2" Body weight 237.00 [lb_av] 237.00 [lb_av] MEDEN T ([facility], [facility]) Body temperature 97.8 [degF] 97.8 [degF] MEDENT ([facility], [facility]) Oxygen saturation in Arterial blood by Pulse oximetry 98 % 98 % MEDENT ([facility], [facility]) Respiratory rate 20 /min 20 /min MEDENT ( [facility], [facility]) Heart rate 72 /min 72 /min MEDENT ([facility], [facility]) Diastolic blood pressure 84 mm[Hg] 84 mm[Hg] MEDENT ([facility], [facility]) Systolic blood pressure 120 mm[Hg] 120 mm[Hg] M EDENT ([facility], [facility]) Diastolic blood pressure 60 mm[Hg] 60 mm[Hg] eCW1 ([facility]) Systolic blood pressure 102 mm[Hg] 102 mm[Hg] e CW1 ([facility]) Body temperature 97.9 [degF] 97.9 [degF] eCW1 ( [facility]) Respiratory rate 18 /min 18 /min eCW1 ([facility]) Heart rate 85 /min 85 /min eCW1 ([facility]) Body mass index (BMI) [Ratio] 43.34 kg/m2 43.34 kg/m2 eCW1 ([facility]) Body height 62 [in_us] 62 [in_us] eCW1 ([facility]) Body weight Measured 237 [lb_av] 237 [lb_av] eC W1 ([facility]) Body mass index (BMI) [Ratio] 43.3 kg/m2 43.3 k g/m2 MEDENT ([facility], [facility]) Body height 62 [in_i] 62 [in_i] MEDENT ([facility], [facility]) 5'2" Body weight 237.00 [lb_av] 237.00 [lb_av] MEDEN T ([facility], [facility]) Body temperature 98.0 [degF] 98.0 [degF] MEDENT ([facility], [facility]) Oxygen saturation in Arterial blood by Pulse oximetry 99 % 99 % MEDENT ([facility], [facility]) Respiratory rate 20 /min 20 /min MEDENT ( [facility] [facility], [facility]) Heart rate 82 /min 82 /min MEDENT ([facility], [facility]) Diastolic blood pressure 84 mm[Hg] 84 mm[Hg] MEDENT ([facility] [facility], [facility]) Systolic blood pressure 130 mm[Hg] 130 mm[Hg] M EDENT ([facility], [facility]) Diastolic blood pressure 72 mm[Hg] 72 mm[Hg] eCW1 ([facility]) Systolic blood pressure 128 mm[Hg] 128 mm[Hg] e CW1 ([facility]) Body mass index (BMI) [Ratio] 43.93 kg/m2 43.93 kg/m2 eCW1 ([facility]) Body height 62 [in_us] 62 [in_us] eCW1 ([facility]) Body weight Measured 240.2 [lb_av] 240.2 [lb_av ] eCW1 ([facility]) Diastolic blood pressure 72 mm[Hg] 72 mm[Hg] eCW1 ([facility]) Systolic blood pressure 130 mm[Hg] 130 mm[Hg] e CW1 ([facility]) Body temperature 97.5 [degF] 97.5 [degF] eCW1 ( [facility]) Respiratory rate 18 /min 18 /min eCW1 ([facility]) Heart rate 86 /min 86 /min eCW1 ([facility]) Body mass index (BMI) [Ratio] 43.71 kg/m2 43.71 kg/m2 eCW1 ([facility]) Body height 62 [in_us] 62 [in_us] eCW1 ([facility]) Body weight Measured 239 [lb_av] 239 [lb_av] eC W1 ([facility]) Body mass index (BMI) [Ratio] 43.3 kg/m2 43.3 k g/m2 MEDENT ([facility], [facility]) Body height 62 [in_i] 62 [in_i] MEDENT ([facility], [facility]) 5'2" Body weight 237.00 [lb_av] 237.00 [lb_av] MEDEN T ([facility], [facility]) Body temperature 98.6 [degF] 98.6 [degF] MEDENT ([facility], [facility]) Oxygen saturation in Arterial blood by Pulse oximetry 99 % 99 % MEDENT ([facility], [facility]) Respiratory rate 20 /min 20 /min MEDENT ( [facility], [facility]) Heart rate 78 /min 78 /min MEDENT ([facility], [facility]) Diastolic blood pressure 80 mm[Hg] 80 mm[Hg] MEDENT ([facility], [facility]) Systolic blood pressure 122 mm[Hg] 122 mm[Hg] M EDENT ([facility], [facility]) Diastolic blood pressure 78 mm[Hg] 78 mm[Hg] eCW1 ([facility]) Systolic blood pressure 114 mm[Hg] 114 mm[Hg] e CW1 ([facility]) Body temperature 97.5 [degF] 97.5 [degF] eCW1 ( [facility]) Respiratory rate 18 /min 18 /min eCW1 ([facility]) Heart rate 83 /min 83 /min eCW1 ([facility]) Body mass index (BMI) [Ratio] 45.94 kg/m2 45.94 kg/m2 W1 ([facility]) Body height 62 [in_us] 62 [in_us] eCW1 ([facility]) Body weight Measured 251.2 [lb_av] 251.2 [lb_av ] eCW1 ([facility]) ID Date Data Source [id number] 08/08/2019 12:27:30 PM EDT [facility] Name Value Range Interpretation Code Description Data Source(s) WEIGHT RECORDED 228.00 pounds 228.00 pounds [facility] Height 62 Inches 062 Inches [facility] Patient Treatment Plan of Care Planned Activity Planned Date Details Description Data Source (s) Metronidazole 500 MG Oral Tablet 11/22/2019 12:00:00 AM EDT eCW1 ([facility]) Metronidazole 500 MG Oral Tablet 11/22/2019 12:00:00 AM EDT eCW1 ([facility]) Metronidazole 500 MG Oral Tablet 11/22/2019 12:00:00 AM EDT eCW1 ([facility]) Metronidazole 500 MG Oral Tablet 11/22/2019 12:00:00 AM EDT eCW1 ([facility]) Metronidazole 500 MG Oral Tablet 11/22/2019 12:00:00 AM EDT eCW1 ([facility]) Metronidazole 500 MG Oral Tablet 11/22/2019 12:00:00 AM EDT eCW1 ([facility] [facility] [place] 200 MG 11/15/2019 12:00:00 AM EDT eCW1 ([facility]) doxycycline hyclate 100 MG Oral Capsule 05/29/2019 12:00:00 AM EST eCW1 ([facility]) rivaroxaban 20 MG Oral Tablet [Xarelto] 04/05/2019 12:00:00 AM EST eCW1 ([facility]) Albuterol Sulfate HFA 108 (90 Base) MCG/ACT 03/27/2019 12:00:00 AM EST eCW1 ([facility]) PredniSONE 10 MG (48) 03/27/2019 12:00:00 AM EST eCW1 ([facility])
[2020-05-23] MEDS ORDERED: NS 1,000 ML IV ONE (00:30)
--- NOTE | 2020-05-23 01:21 | REPVR ---
PROCEDURE INFORMATION: Exam: XR Chest, 1 View Exam date and time: 05/23/2020 12:54 AM Age: 44 years old Clinical indication: Shortness of breath; Additional info: Coronavirus workup TECHNIQUE: Imaging protocol: XR of the chest Views: 1 view. COMPARISON: CR PORTABLE CHEST X-RAY 05/09/2020 2:21 PM FINDINGS: Lungs: There is decreased inflation of the lungs. Slightly increased bibasilar infiltrates or atelectasis. Pleural space: Unremarkable. No pleural effusion. No pneumothorax. Heart/Mediastinum: The heart and mediastinum are unchanged. Bones/joints: Unremarkable. Soft tissues: There are moderately generous overlying soft tissues. IMPRESSION: 1. Decreased inflation with slightly increased bibasilar infiltrates or atelectasis since 05/09/2020. 2. Otherwise stable chest. Electronically signed by: Eleazar Vegas On 05/23/2020 01:21:30 AM
[2020-05-23 01:32] LABS: BASO % 0.2 % (0.0-1.0); EOS % 0.2 % (0.0-3.0); HEMATOCRIT 36.2 % (36.0-47.0); HEMOGLOBIN 11.1 g/dl (12.0-15.5); LYMPH # 1.4 10^3/uL (1.5-5.0); LYMPH % 24.5 % (24.0-44.0); MEAN CORPUSCULAR HGB CONC 30.7 g/dl (32.0-36.5); MEAN CORPUSCULAR VOLUME 91.2 fl (80.0-96.0); MONO # 0.4 10^3/uL (0.0-0.8); MONO % 6.5 % (0.0-5.0); NEUTROPHILS # 3.8 10^3/uL (1.5-8.5); NEUTROPHILS % 68.2 % (36.0-66.0); PLATELET COUNT, AUTOMATED 222 10^3/uL (150-450); RED BLOOD COUNT 3.97 10^6/uL (4.00-5.40); WHITE BLOOD COUNT 5.5 10^3/uL (4.0-10.0)
[2020-05-23 01:45] LABS: INR 1.71; PROTHROMBIN TIME 20.4 SECONDS (12.5-14.3)
[2020-05-23 01:46] LABS: PARTIAL THROMBOPLASTIN TIME 48.3 SECONDS (24.2-38.5)
[2020-05-23 01:48] LABS: ALBUMIN 3.3 GM/DL (3.2-5.2); ALT/SGPT 20 U/L (12-78); BILIRUBIN,TOTAL 0.2 MG/DL (0.2-1.0); BLOOD UREA NITROGEN 13 MG/DL (7-18); C REACTIVE PROTEIN QUANTITATIV 3.45 MG/DL (0.00-0.30); CALCIUM LEVEL 8.5 MG/DL (8.5-10.1); CARBON DIOXIDE LEVEL 23 MEQ/L (21-32); CHLORIDE LEVEL 109 MEQ/L (98-107); CREATININE FOR GFR 0.92 MG/DL (0.55-1.30); D-DIMER QUANT 371.51 ng/ml (<500); FERRITIN 12 NG/ML (8-252); GLOMERULAR FILTRATION RATE > 60.0 (>58); GLUCOSE, FASTING 83 MG/DL (70-100); LDH LACTATE DEHYDROGENASE 190 U/L (84-246); POTASSIUM SERUM 3.5 MEQ/L (3.5-5.1); SODIUM LEVEL 140 MEQ/L (136-145); TOTAL PROTEIN 6.9 GM/DL (6.4-8.2)
[2020-05-23] MEDS ORDERED: cefTRIAXone SOD 1 GM in D5W MINI-BAG PLUS 50 ML IV ONE (02:15)
[2020-05-23] MEDS ORDERED: AZITHROMYCIN INJ 500 MG, VIAL MATE ADAPTER 1 EACH in D5W 250 ML IV ONE (02:15)
[2020-05-23] MEDS ORDERED: VENTAER INH (02:40)
[2020-05-23] MEDS ORDERED: AMOX875T2 PO (02:40)
[2020-05-23] MEDS ORDERED: ZITHTAB PO (02:40)
[2020-05-23 03:00] VITALS: BP 112/52
== END 2020-05-23 04:26 | disposition home or self-care (01) ==
LOC: M ED 23:47
DX: J45.909 Unspecified asthma, uncomplicated (principal); J18.1 Lobar pneumonia, unspecified organism; U07.1 COVID-19; N39.0 Urinary tract infection, site not specified; F33.9 Major depressive disorder, recurrent, unspecified; F41.9 Anxiety disorder, unspecified; K21.9 Gastro-esophageal reflux disease without esophagitis; E78.5 Hyperlipidemia, unspecified; Z86.711 Personal history of pulmonary embolism; Z86.718 Personal history of other venous thrombosis and embolism; M51.9 Unspecified thoracic, thoracolumbar and lumbosacral intervertebral disc disorder; Z79.01 Long term (current) use of anticoagulants; Z88.5 Allergy status to narcotic agent; Z88.8 Allergy status to other drugs, medicaments and biological substances
CPT/HCPCS: 71045; 80053; 81001; 82728; 83605; 83615; 84145; 85025; 85379; 85384; 85610; 85730; 86140; 87086; 87486; 87581; 87633; 87798; 96361; 96365; 96375; 99284; J0456; J0696

== ENCOUNTER 2020-05-26 12:43 | Inpatient (IN) | payer OTHER ==
[~2020-05-26] VITALS: Ht 160 cm; Wt 106.2 kg
[~2020-05-26 12:43] MED LIST changes: +AMOX875T2 PO; +VENTAER INH; +ZITHTAB PO
[2020-05-26] MEDS ORDERED: ONDANSETRON 4 MG ORAL DISINTEGRATING TAB PO ONE (13:15)
[2020-05-26] MEDS ORDERED: ACETAMINOPHEN 500 MG TAB PO ONE (13:30)
[2020-05-26 13:49] LABS: BASO % 0.1 % (0.0-1.0); HEMATOCRIT 35.8 % (36.0-47.0); HEMOGLOBIN 11.3 g/dl (12.0-15.5); LYMPH # 1.1 10^3/uL (1.5-5.0); LYMPH % 14.6 % (24.0-44.0); MEAN CORPUSCULAR HEMOGLOBIN 27.9 pg (27.0-33.0); MEAN CORPUSCULAR HGB CONC 31.6 g/dl (32.0-36.5); MEAN CORPUSCULAR VOLUME 88.4 fl (80.0-96.0); MONO # 0.3 10^3/uL (0.0-0.8); MONO % 4.1 % (0.0-5.0); NEUTROPHILS # 6.1 10^3/uL (1.5-8.5); NEUTROPHILS % 80.7 % (36.0-66.0); PLATELET COUNT, AUTOMATED 230 10^3/uL (150-450); RED BLOOD COUNT 4.05 10^6/uL (4.00-5.40); WHITE BLOOD COUNT 7.5 10^3/uL (4.0-10.0)
[2020-05-26 14:02] LABS: INR 1.19; PROTHROMBIN TIME 15.4 SECONDS (12.5-14.3)
[2020-05-26 14:03] LABS: PARTIAL THROMBOPLASTIN TIME 41.1 SECONDS (24.2-38.5)
[2020-05-26 14:05] LABS: D-DIMER QUANT 428.28 ng/ml (<500)
--- NOTE | 2020-05-26 14:09 | REP ---
INDICATION: Coronavirus workup. COMPARISON: Comparison radiograph 23 May 2020. TECHNIQUE: Portable upright AP chest radiograph. FINDINGS: There are infiltrates in the lung bases and right upper lobe region peripherally and bilaterally. These appear more prominent today than on the comparison study of 23 May 2020. The right upper perihilar opacity is new.. Heart is not enlarged. There is periarticular soft tissue calcification in the left shoulder consistent with calcific tendinitis or bursitis. No other bony abnormality. IMPRESSION: Progressive infiltrates bilaterally.. <Electronically signed by Dhruv Serrano > 05/26/20 [id number]
[2020-05-26 14:40] LABS: ALBUMIN 2.9 GM/DL (3.2-5.2); ALT/SGPT 16 U/L (12-78); BILIRUBIN,TOTAL 0.2 MG/DL (0.2-1.0); BLOOD UREA NITROGEN 7 MG/DL (7-18); CALCIUM LEVEL 8.1 MG/DL (8.5-10.1); CARBON DIOXIDE LEVEL 21 MEQ/L (21-32); CHLORIDE LEVEL 110 MEQ/L (98-107); CK-MB VALUE MASS < 1.0 NG/ML (<3.6); CPK CREATINE PHOSPHOKINASE 62 U/L (26-192); CREATININE FOR GFR 0.77 MG/DL (0.55-1.30); FERRITIN 42 NG/ML (8-252); GLOMERULAR FILTRATION RATE > 60.0 (>58); GLUCOSE, FASTING 81 MG/DL (70-100); LDH LACTATE DEHYDROGENASE 254 U/L (84-246); MAGNESIUM LEVEL 1.9 MG/DL (1.8-2.4); MB/CK RELATIVE INDEX 1.61 (< OR =4); SODIUM LEVEL 141 MEQ/L (136-145); TOTAL PROTEIN 6.7 GM/DL (6.4-8.2); TROPONIN I < 0.02 NG/ML (< 0.10)
[2020-05-26] MEDS ORDERED: POTASSIUM CHLORIDE 10 MEQ SR TABLET PO ONE (15:00)
[2020-05-26] MEDS ORDERED: TOPI100T9 PO (15:18)
[2020-05-26] MEDS ORDERED: AUGM875T28 PO (15:18)
[2020-05-26] MEDS ORDERED: AZIT-10 PO (15:18)
[2020-05-26] MEDS ORDERED: VENL100T PO (15:18)
[2020-05-26] MEDS ORDERED: LORA-674 PO (15:18)
[2020-05-26] MEDS ORDERED: VENTAER INH (15:18)
[2020-05-26] MEDS ORDERED: SUCR1TAB56 PO (15:18)
[2020-05-26] MEDS ORDERED: ALBUTEROL 90 MCG/ACT 8GM HFA INHALER INH PRN (16:00)
[2020-05-26] MEDS ORDERED: ISOVUE-370 76% 100ML VIAL As Ordered ONE (16:12)
--- NOTE | 2020-05-26 16:15 | HPEPDOC ---
[facility] Medical History & Physical Date of Admission May 26, 2020 Date of Service: May 26, 2020 History and Physical Chief complaint: Who presented to the emergency room with worsening shortness of History of present illness: Patient is a 44-year-old female who presented to the ER with worsening shortness of breath. Patient reported that she has lost the sense of taste and smell on 05/18 and had gotten a rapid COVID19 teslas completed that day that was negative. She was experiencing diarrhea and persistent fevers and presented to the ER on 05/23 and subsequently tested positive for COVID19. Patient was discharged home with instructions to follow her pulse oximetry. Today, patient had reported that her pulse oximeter read 87% while she was ambulating out of the bathroom. Upon arrival to emergency room, patient saturation was 96% on room air and with exertion dropped down to as low as 91%. Currently patient reports shortness of breath which is worse with exertion and her cough has progressed from a nonproductive to productive cough with green/pink-colored sputum. Denies any chest pain, palpitations. Patient reports nausea without vomiting. Reports abdominal discomfort in the left lower quadrant at a 6-7/10, sharp-like intensity, that started yesterday. Patient has reported diarrhea and is reported. 3. Bowel movements today. Denies any blood in her stool. Patient reports no urinary discomfort. However, she was told that she may have a urinary tract infection on her last ER visit on 05/23. Urine cultures from that day have been negative. Patient reports she continues to experience chills and has a fever, most recently at home of 102.3F. Patient has reported poor appetite for the last several days. Past Medical History: PE 2013 / DVT 2014 (on Xarelto) DLP Asthma Migraine headaches Diverticulitis Depression Iron deficiency anemia GERD Past Surgical History: Gastric bypass 2 Hernia repair Small bowel resection Left arm lipoma resection Hysterectomy Allergies: See below Medications: See below Family History: - History of breast cancer on her fathers side Social History: - Denies the use of tobacco or illicit drugs; patient quit drinking alcohol one month ago - Denies recent travel or sick contacts - Lives with mother and son - Occupation; patient works at [employer] Review of Systems: 10 point review of systems complete, all negative otherwise stated in HPI Physical exam: - Vitals: BP , HR [122/64], RR [26], Sat [93%RA], Temp [101.3F] - General: Lying in bed, Speaking in full sentences, AAOx3 - HEENT: NC, AT, PERRLA, EOMI - CVS: RRR, +S1S2 - Lungs: Fair air entry bilaterally, No appreciable wheezing / rales / rhonchi - Abdomen: Soft, Non-distended, Tenderness at LLQ - Extremities: No lower extremity edema, No calf tenderness - Neuro: No focal motor or sensory deficit - Skin: No visible rashes Labs: See below Imaging: CXR 05/26: Progressive infiltrates bilaterally.. EKG: See below Assessment and Plan: Dyspnea - likely 2/2 COVID 19 pneumonitis, possibly 2/2 superimposed bacterial infection - Patient is continued to experience worsening shortness of breath and a productive cough - Physical without any adventitious lung sounds - Febrile while in the emergency room - Patient tested positive for COVID19 on 05/23; Symptoms had started on 05/18 - Inflammatory markers are elevated - Imaging noted above - Will start Dexamethasone (Day #1) - Will start Levofloxacin (Day#1); will trend procalcitonin Lactic acidosis - Will c/w IV fluid hydration Hypokalemia - Supplemented via PO route in the ER - Will supplement IV fluids with potassium LLQ abdominal pain - Patient has a history of diverticulitis in the past - Will get CT abdomen PE 2013 / DVT 2014 - c/w full anticoagulation with Xarelto DLP - c/w Atorvastatin Chronic Asthma - No evidence of exacerbation - Continue with inhaled therapy as ordered Migraine headaches - c/w Rizatriptan, topiramate and Tylenol Depression - c/w Venlafaxine Iron deficiency anemia GERD - c/w Omeprazole DVT prophylaxis - Will c/w full anticoagulation with Xarelto Vital Signs Vital Signs Date Time Temp Pulse Resp B/P (MAP) Pulse Ox O2 Delivery O2 Flow Rate FiO2 05/26/20 16:01 92 94 05/26/20 16:00 101.0 26 113/65 (81) Nasal Cannula 2.0 Laboratory Data Labs 24H Laboratory Tests 2 05/26/20 13:16: Immature Granulocyte % (Auto) 0.5, Neutrophils (%) (Auto) 80.7H, Lymphocytes (%) (Auto) 14.6L, Monocytes (%) (Auto) 4.1, Eosinophils (%) (Auto) 0.0, Basophils (%) (Auto) 0.1, Neutrophils # (Auto) 6.1, Lymphocytes # (Auto) 1.1L, Monocytes # (Auto) 0.3, Eosinophils # (Auto) 0.0, Basophils # (Auto) 0.0, Nucleated Red Blood Cells % (auto) 0.0, Prothrombin Time 15.4H, Prothromb Time International Ratio 1.19, Activated Partial Thromboplast Time 41.1H, Fibrinogen 687H, D-Dimer, Quantitative 428.28, Anion Gap 10, Glomerular Filtration Rate > 60.0, Calcium Level 8.1L, Magnesium Level 1.9, Ferritin 42, Total Bilirubin 0.2, Aspartate Amino Transf (AST/SGOT) 17, Alanine Aminotransferase (ALT/SGPT) 16, Alkaline Phosphatase 70, Lactate Dehydrogenase 254H, Total Creatine Kinase 62, Creatine Kinase MB < 1.0, Creatine Kinase MB Relative Index 1.61, Troponin I < 0.02, C- Reactive Protein, Quantitative 14.40H, Total Protein 6.7, Albumin 2.9L, Albumin/Globulin Ratio 0.8L 05/26/20 13:19: Lactic Acid Level 2.2*H CBC/BMP Laboratory Tests 05/26/20 13:16 Home Medications Scheduled Amoxicillin/Potassium Clav (Augmentin 875-125 Tablet) 1 Each Tablet, 875 MG PO BID FILLED 05/23/20 FOR DAYS Atorvastatin Calcium (Lipitor) 20 Mg Tablet, 20 MG PO QHS Azithromycin (Azithromycin) 250 Mg Tablet, 250 MG PO DAILY FILLED ON 05/23/20 FOR 5 DAYS Cholecalciferol (Vitamin D3) (Vitamin D3) 125 Mcg Capsule, 250 MCG PO DAILY Loratadine (Loratadine) 10 Mg Tablet, 10 MG PO QHS Multivitamins (Thera M Plus Tablet) 1 Tab Tab, 1 TAB PO DAILY Omeprazole (Omeprazole) 40 Mg Cap, 40 MG PO BID Rivaroxaban (Xarelto) 20 Mg Tab, 20 MG PO QHS Sucralfate (Sucralfate) 1 Gm Tablet, 1 GM PO ACHS Topiramate (Topiramate) 100 Mg Tablet, 200 MG PO QHS Venlafaxine HCl (Venlafaxine HCl) 100 Mg Tablet, 300 MG PO QHS Scheduled PRN Albuterol Sulfate (Ventolin Hfa) 18 Gm Hfa.aer.ad, 2 PUFF INH QID PRN for SHORTNESS OF BREATH Ondansetron HCl (Ondansetron HCl) 4 Mg Tablet, 4 MG PO QID PRN for NAUSEA OR VOMITING Rizatriptan Benzoate (Rizatriptan) 10 Mg Tab, 10 MG PO PRN PRN for MIGRAINE Allergies Coded Allergies: NSAIDS (Non-Steroidal Anti-Inflamma (Verified Allergy, Intermediate, SWELLING CAN TAKE TORADOL, 06/11/19) gabapentin (Verified Allergy, Intermediate, RASH, 06/11/19) rofecoxib (Verified Allergy, Intermediate, HIVES, JOINT SWELLING, 06/11/19) oxycodone (Verified Adverse Reaction, Severe, SEVERE VOMITING, 06/11/19) buprenorphine (Verified Adverse Reaction, Intermediate, "MAKES ME FEEL DRUNK", 06/11/19) duloxetine (Verified Adverse Reaction, Unknown, 09/29/19) psychosis DEDRICK RIVERA MD May 26, 2020 16:15
--- NOTE | 2020-05-26 16:41 | REP ---
INDICATION: LLQ pain. COMPARISON: Multiple the latest 09/29/2019 also after intravenous contrast administration TECHNIQUE: 100 cc Isovue 370 intravenously without oral bowel preparatory contrast administration. FINDINGS: Since the last examination advanced patchy opacities have developed in the lung bases with air bronchograms. There are no pleural or pericardial effusions. The liver, gallbladder, spleen, pancreas, adrenal glands, and kidneys are unchanged. The abdominal aorta and para aortic regions are unchanged. Note is again made of previous gastric bypass surgery. There is no evidence of free fluid or free air. There is no evidence of a mass or adenopathy. Seen in the pelvis abutting the sigmoid colon there is new fatty infiltration in the pelvic mesentery. This is abutting the vaginal cuff region of previous hysterectomy. This abuts the posterior right wall of the urinary bladder. There is no significant change in appearance of the osseous structures. IMPRESSION: 1. Abnormal lung base findings as described above suspicious for pneumonia. Correlate clinically. 2. Abnormal findings in the pelvis suggestive of inflammatory/infectious etiology and possibly secondary to sigmoid colon diverticulitis. 3. Other findings as described above. <Electronically signed by Óscar Steward > 05/26/20 [id number]
[2020-05-26] MEDS: SUCRALFATE 1 GM TAB PO SCH ×2 (17:00→21:56)
[2020-05-26] MEDS: KCL 40MEQ in NS 1000ML 1,000 ML IV SCH (17:54)
[2020-05-26] MEDS ORDERED: LevoFLOXacin IV 750 MG in IV 1 EA IV SCH (18:00)
[2020-05-26 18:50] VITALS: BP 131/62
[2020-05-26 19:00] VITALS: O2SAT 94
[2020-05-26] MEDS: ACETAMINOPHEN TAB 650MG DOSE (2X325MG) PO PRN (19:12)
[2020-05-26 20:00] VITALS: O2SAT 93
[2020-05-26] MEDS: metroNIDAZOLE 500 MG in IV 1 EA IV SCH (20:19)
[2020-05-26] MEDS: ONDANSETRON 4 MG ORAL DISINTEGRATING TAB PO PRN (21:01)
[2020-05-26] MEDS: ATORVASTATIN 20 MG TAB PO SCH (21:55)
[2020-05-26] MEDS: OMEPRAZOLE 20 MG CAP PO SCH (21:55)
[2020-05-26] MEDS: RIVAROXABAN 20 MG TAB (XARELTO) PO SCH (21:55)
[2020-05-26] MEDS: cefTRIAXone SOD 1 GM in D5W MINI-BAG PLUS 50 ML IV SCH (21:55)
[2020-05-26] MEDS: VENLAFAXINE 37.5 MG TAB PO SCH (21:55)
[2020-05-26] MEDS: TOPIRAMATE (TopAMAX) 100 MG TAB PO SCH (21:56)
[2020-05-26] MEDS: LORATADINE 10 MG TAB PO SCH (22:04)
[2020-05-27] VITALS (9 sets, daily range): BP systolic 90–113; BP diastolic 50–60; O2SAT 91–95
[2020-05-27] MEDS: metroNIDAZOLE 500 MG in IV 1 EA IV SCH ×3 (03:27→21:47)
[2020-05-27] MEDS: ONDANSETRON 4 MG ORAL DISINTEGRATING TAB PO PRN ×3 (03:28→23:27)
[2020-05-27] MEDS: ACETAMINOPHEN TAB 650MG DOSE (2X325MG) PO PRN (03:29)
[2020-05-27] MEDS: KCL 40MEQ in NS 1000ML 1,000 ML IV SCH ×2 (06:17→16:29)
[2020-05-27 06:56] LABS: INR 1.93; PROTHROMBIN TIME 22.5 SECONDS (12.5-14.3)
[2020-05-27 06:57] LABS: PARTIAL THROMBOPLASTIN TIME 64.9 SECONDS (24.2-38.5)
[2020-05-27 07:19] LABS: ALBUMIN 2.6 GM/DL (3.2-5.2); ALT/SGPT 12 U/L (12-78); BILIRUBIN,DIRECT 0.1 MG/DL (0.0-0.2); BILIRUBIN,TOTAL 0.2 MG/DL (0.2-1.0); CPK CREATINE PHOSPHOKINASE 77 U/L (26-192); FERRITIN 68 NG/ML (8-252); LDH LACTATE DEHYDROGENASE 309 U/L (84-246); NT-PRO BNP 143 PG/ML (<125); TOTAL PROTEIN 6.3 GM/DL (6.4-8.2)
[2020-05-27 07:31] LABS: BASO % 0.1 % (0.0-1.0); HEMATOCRIT 33.6 % (36.0-47.0); HEMOGLOBIN 10.4 g/dl (12.0-15.5); LYMPH # 1.6 10^3/uL (1.5-5.0); LYMPH % 13.4 % (24.0-44.0); MEAN CORPUSCULAR HEMOGLOBIN 27.3 pg (27.0-33.0); MEAN CORPUSCULAR VOLUME 88.2 fl (80.0-96.0); MONO # 0.3 10^3/uL (0.0-0.8); MONO % 2.8 % (0.0-5.0); NEUTROPHILS # 9.8 10^3/uL (1.5-8.5); NEUTROPHILS % 82.9 % (36.0-66.0); PLATELET COUNT, AUTOMATED 258 10^3/uL (150-450); RED BLOOD COUNT 3.81 10^6/uL (4.00-5.40); WHITE BLOOD COUNT 11.8 10^3/uL (4.0-10.0)
[2020-05-27 07:40] LABS: BLOOD UREA NITROGEN 6 MG/DL (7-18); CALCIUM LEVEL 7.8 MG/DL (8.5-10.1); CARBON DIOXIDE LEVEL 20 MEQ/L (21-32); CHLORIDE LEVEL 111 MEQ/L (98-107); CREATININE FOR GFR 0.68 MG/DL (0.55-1.30); GLOMERULAR FILTRATION RATE > 60.0 (>58); GLUCOSE, FASTING 90 MG/DL (70-100); MAGNESIUM LEVEL 1.8 MG/DL (1.8-2.4); POTASSIUM SERUM 3.3 MEQ/L (3.5-5.1); SODIUM LEVEL 140 MEQ/L (136-145)
[2020-05-27] MEDS ORDERED: POTASSIUM CHLORIDE 10 MEQ SR TABLET PO ONE (08:30)
[2020-05-27] MEDS: MULTIVITAMINS/MINERALS THERAP 1 TAB PO SCH (10:15)
[2020-05-27] MEDS: OMEPRAZOLE 20 MG CAP PO SCH ×3 (10:16→22:29)
[2020-05-27] MEDS: SUCRALFATE 1 GM TAB PO SCH ×5 (10:16→22:29)
[2020-05-27] MEDS: dexameTHASONE 4 MG/ML 1ML VIAL (J1100 PER 1MG) IV SCH (10:17)
[2020-05-27] MEDS: VITAMIN D (CHOLECALCIFEROL) 400 INTERNATIONAL UNITS TAB PO SCH (10:20)
--- NOTE | 2020-05-27 10:59 | IPNPDOC ---
Text Note Date of Service The patient was seen on 05/27/20. NOTE Subjective: Patient is a 44-year-old female who presented to the ER with worsening shortness of breath. Patient reported that she has lost the sense of taste and smell on 05/18 and had gotten a rapid COVID19 teslas completed that day that was negative. She was experiencing diarrhea and persistent fevers and presented to the ER on 05/23 and subsequently tested positive for COVID19. Patient was discharged home with instructions to follow her pulse oximetry. On 05/26, patient had reported that her pulse oximeter read 87% while she was ambulating out of the bathroom. Upon arrival to emergency room, patient saturation was 96% on room air and with exertion dropped down to as low as 91%. Patient was admitted to the hospital service for further evaluation and treatment. In the emergency room, patient had a CT scan of completed of her abdomen that suggested sigmoid diverticulitis. Patient was seen and examined at the bedside. Currently patient reports that her abdominal pain is doing better. She denies any nausea, vomiting, diarrhea, or urinary discomfort. Patient reports that she is short of breath without any significant cough. Objective: Vitals (See below) General: Lying in bed, appears comfortable, AAOx3 HEENT: NC, AT CVS: RRR, +S1S2 Lungs: Fair air entry b/l, -w/r/r Abdomen: Soft, ND, no appreciable tenderness Extremities: - Edema, - Calf tenderness Assessment and plan: Dyspnea - likely 2/2 COVID 19 pneumonitis, possibly 2/2 superimposed bacterial infection - Patient reports a mild cough - Currently on 1 L for comfort, but has been tolerating room air - Patient tested positive for COVID19 on 05/23; Symptoms had started on 05/18 - Inflammatory markers remain stable - Imaging noted above - c/w Dexamethasone (Day #2) - c/w Ceftriaxone (Day#2); will trend procalcitonin - c/w Incentive spirometry / acapella LLQ abdominal pain - likely 2/2 Acute diverticulitis - Patient has a history of diverticulitis in the past - Patient has continued to experience fevers - Remains hemodynamically stable - CT abdomen / pelvis 05/27: 1. Abnormal lung base findings as described above suspicious for pneumonia. Correlate clinically. 2. Abnormal findings in the pelvis suggestive of inflammatory/infectious etiology and possibly secondary to sigmoid colon diverticulitis. 3. Other findings as described above. - c/w Ceftriaxone and Flagyl (Day #2) s/p Lactic acidosis - Will c/w IV fluid hydration - will reduce rate Hypokalemia - Will supplement again today PE 2013 / DVT 2014 - c/w full anticoagulation with Xarelto DLP - c/w Atorvastatin Chronic Asthma - No evidence of exacerbation - Continue with inhaled therapy as ordered Migraine headaches - c/w Rizatriptan, topiramate and Tylenol Depression - c/w Venlafaxine Iron deficiency anemia GERD - c/w Omeprazole DVT prophylaxis - Will c/w full anticoagulation with Xarelto Disposition: - Awaiting clinical improvement VS,Siddhartha I+O VS, Siddhartha I+O Laboratory Tests 05/26/20 13:16 05/27/20 06:00 05/27/20 06:25 Vital Signs Date Time Temp Pulse Resp B/P (MAP) Pulse Ox O2 Delivery O2 Flow Rate FiO2 05/27/20 08:00 100.5 94 17 113/54 (73) 91 Room Air 05/27/20 04:23 2.0 I&O- Last 24 Hours up to 6 AM 05/27/20 06:00 Intake Total 1316 ml Balance 1316 ml DEDRICK RIVERA MD May 27, 2020 10:59
[2020-05-27] MEDS: ATORVASTATIN 20 MG TAB PO SCH ×2 (21:49→22:29)
[2020-05-27] MEDS: TOPIRAMATE (TopAMAX) 100 MG TAB PO SCH ×2 (21:49→22:30)
[2020-05-27] MEDS: DOXYCYCLINE HYCLATE 100MG TABLET PO SCH (21:49)
[2020-05-27] MEDS: RIVAROXABAN 20 MG TAB (XARELTO) PO SCH (21:50)
[2020-05-27] MEDS: LORATADINE 10 MG TAB PO SCH ×2 (21:50→22:29)
[2020-05-27] MEDS: VENLAFAXINE 37.5 MG TAB PO SCH (21:50)
[2020-05-27] MEDS: cefTRIAXone SOD 1 GM in D5W MINI-BAG PLUS 50 ML IV SCH (23:25)
[2020-05-28] VITALS (8 sets, daily range): BP systolic 95–108; BP diastolic 51–58; O2SAT 90–92
[2020-05-28] MEDS: ACETAMINOPHEN TAB 650MG DOSE (2X325MG) PO PRN ×4 (00:28→20:02)
[2020-05-28] MEDS: metroNIDAZOLE 500 MG in IV 1 EA IV SCH (03:28)
[2020-05-28] MEDS: RIZATRIPTAN MLT 10 MG TAB PO PRN ×2 (03:28→20:01)
[2020-05-28] MEDS: dexameTHASONE 4 MG/ML 1ML VIAL (J1100 PER 1MG) IV SCH (08:13)
[2020-05-28] MEDS: SUCRALFATE 1 GM TAB PO SCH ×4 (08:13→21:16)
[2020-05-28] MEDS: OMEPRAZOLE 20 MG CAP PO SCH ×2 (08:13→21:16)
[2020-05-28] MEDS: DOXYCYCLINE HYCLATE 100MG TABLET PO SCH ×2 (08:13→21:16)
[2020-05-28] MEDS: VITAMIN D (CHOLECALCIFEROL) 400 INTERNATIONAL UNITS TAB PO SCH (08:13)
[2020-05-28] MEDS: KCL 40MEQ in NS 1000ML 1,000 ML IV SCH (08:13)
[2020-05-28] MEDS: MULTIVITAMINS/MINERALS THERAP 1 TAB PO SCH (08:30)
[2020-05-28 09:06] LABS: BASO % 0.2 % (0.0-1.0); HEMATOCRIT 31.8 % (36.0-47.0); HEMOGLOBIN 9.9 g/dl (12.0-15.5); LYMPH # 1.3 10^3/uL (1.5-5.0); LYMPH % 7.1 % (24.0-44.0); MEAN CORPUSCULAR HEMOGLOBIN 27.9 pg (27.0-33.0); MEAN CORPUSCULAR HGB CONC 31.1 g/dl (32.0-36.5); MEAN CORPUSCULAR VOLUME 89.6 fl (80.0-96.0); MONO # 0.4 10^3/uL (0.0-0.8); MONO % 2.1 % (0.0-5.0); NEUTROPHILS # 16.9 10^3/uL (1.5-8.5); NEUTROPHILS % 89.8 % (36.0-66.0); PLATELET COUNT, AUTOMATED 288 10^3/uL (150-450); RED BLOOD COUNT 3.55 10^6/uL (4.00-5.40); WHITE BLOOD COUNT 18.8 10^3/uL (4.0-10.0)
[2020-05-28 09:31] LABS: INR 1.83; PROTHROMBIN TIME 21.6 SECONDS (12.5-14.3)
[2020-05-28 09:32] LABS: PARTIAL THROMBOPLASTIN TIME 60.7 SECONDS (24.2-38.5)
[2020-05-28 09:33] LABS: ALBUMIN 2.5 GM/DL (3.2-5.2); ALT/SGPT 12 U/L (12-78); BILIRUBIN,DIRECT 0.1 MG/DL (0.0-0.2); BILIRUBIN,TOTAL 0.2 MG/DL (0.2-1.0); BLOOD UREA NITROGEN 7 MG/DL (7-18); CALCIUM LEVEL 8.4 MG/DL (8.5-10.1); CARBON DIOXIDE LEVEL 19 MEQ/L (21-32); CHLORIDE LEVEL 111 MEQ/L (98-107); CPK CREATINE PHOSPHOKINASE 77 U/L (26-192); CREATININE FOR GFR 0.64 MG/DL (0.55-1.30); FERRITIN 82 NG/ML (8-252); GLOMERULAR FILTRATION RATE > 60.0 (>58); GLUCOSE, FASTING 94 MG/DL (70-100); LDH LACTATE DEHYDROGENASE 277 U/L (84-246); MAGNESIUM LEVEL 1.9 MG/DL (1.8-2.4); NT-PRO BNP 336 PG/ML (<125); POTASSIUM SERUM 3.6 MEQ/L (3.5-5.1); SODIUM LEVEL 142 MEQ/L (136-145); TOTAL PROTEIN 6.1 GM/DL (6.4-8.2)
--- NOTE | 2020-05-28 11:51 | IPNPDOC ---
Text Note Date of Service The patient was seen on 05/28/20. NOTE Subjective: Patient is a 44-year-old female who presented to the ER with worsening shortness of breath. Patient reported that she has lost the sense of taste and smell on 05/18 and had gotten a rapid COVID19 teslas completed that day that was negative. She was experiencing diarrhea and persistent fevers and presented to the ER on 05/23 and subsequently tested positive for COVID19. Patient was discharged home with instructions to follow her pulse oximetry. On 05/26, patient had reported that her pulse oximeter read 87% while she was ambulating out of the bathroom. Upon arrival to emergency room, patient saturation was 96% on room air and with exertion dropped down to as low as 91%. Patient was admitted to the hospital service for further evaluation and treatment. In the emergency room, patient had a CT scan of completed of her abdomen that suggested sigmoid diverticulitis. Patient was seen and examined at the bedside. Currently patient reports that her breathing is doing better. However, there still on 4 L of nasal oxygen. She denies any significant cough. Denies nausea, vomiting, abdominal pain, diarrhea, or urinary discomfort. Patient is asking about going home. However, her lab work has not shown any significant improvement and she still on 4 L of oxygen. Objective: Vitals (See below) General: Patient sitting up in bed, appears to be comfortable, is awake, alert and oriented 3 HEENT: NC, AT CVS: +S1S2 Lungs: Air entry is fair bilaterally without any auscultated rhonchi, rales or wheezing Abdomen: Abdomen remains soft without any appreciable tenderness or distention Extremities: No evidence of lower extremity edema, - Calf tenderness Assessment and plan: Dyspnea - likely 2/2 COVID-19 pneumonitis, possibly 2/2 superimposed bacterial infection - Patient reports a mild cough - Currently on 4L NC oxygen; will continue to monitor - Patient tested positive for COVID19 on 05/23; Symptoms had started on 05/18 - Inflammatory markers have had slight improvement; leukocytosis worsened - Imaging noted above - c/w Dexamethasone (Day #3) - c/w Ceftriaxone (Day#3) and Doxycycline (Day#2); procalcitonin trending down - c/w Incentive spirometry / acapella s/p LLQ abdominal pain - likely 2/2 Acute diverticulitis - Patient has a history of diverticulitis in the past - No fevers in >24 hours - Remains hemodynamically stable - CT abdomen / pelvis 05/27: 1. Abnormal lung base findings as described above suspicious for pneumonia. Correlate clinically. 2. Abnormal findings in the pelvis suggestive of inflammatory/infectious etiology and possibly secondary to sigmoid colon diverticulitis. 3. Other findings as described above. - c/w Ceftriaxone and Flagyl (Day #3) s/p Lactic acidosis - Will DC IV fluid hydration s/p Hypokalemia PE 2013 / DVT 2014 - c/w full anticoagulation with Xarelto DLP - c/w Atorvastatin Chronic Asthma - No evidence of exacerbation - Continue with inhaled therapy as ordered Migraine headaches - c/w Rizatriptan, topiramate and Tylenol Depression - c/w Venlafaxine Iron deficiency anemia GERD - c/w Omeprazole DVT prophylaxis - c/w full anticoagulation with Xarelto Disposition: - Awaiting clinical improvement VS,Siddhartha, I+O VS, Siddhartha I+O Laboratory Tests 05/28/20 07:41 Vital Signs Date Time Temp Pulse Resp B/P (MAP) Pulse Ox O2 Delivery O2 Flow Rate FiO2 05/28/20 08:00 91 Nasal Cannula 4.0 05/28/20 07:47 97.7 83 20 108/58 (75) I&O- Last 24 Hours up to 6 AM 05/28/20 06:00 Intake Total 2350 ml Output Total 0 ml Balance 2350 ml DEDRICK RIVERA MD May 28, 2020 11:51
[2020-05-28] MEDS: guaiFENesin ER 600 MG TAB PO SCH ×2 (13:19→21:16)
--- NOTE | 2020-05-28 13:35 | REP ---
INDICATION: Hypoxia. COMPARISON: Comparison portable chest x-ray 26 May 2020. TECHNIQUE: Portable upright AP chest radiograph. FINDINGS: There has been fairly dramatic radiographic progression in the bilateral ill-defined areas of alveolar consolidation in the lung zepeda consistent with progressive pneumonia. Increased density and increased size of infiltrates is noted bilaterally. There are new infiltrates in the right base. Progressive changes are noted in the right upper perihilar region. Increased opacity is seen in the previously noted infiltrate on the left.. IMPRESSION: Rather dramatic radiographic progression in bilateral pneumonia.. <Electronically signed by Dhruv Serrano > 05/28/20 [id number]
[2020-05-28 15:55] LABS: BASO % 0.1 % (0.0-1.0); HEMOGLOBIN 10.3 g/dl (12.0-15.5); LYMPH # 0.7 10^3/uL (1.5-5.0); LYMPH % 3.7 % (24.0-44.0); MEAN CORPUSCULAR HEMOGLOBIN 27.5 pg (27.0-33.0); MEAN CORPUSCULAR HGB CONC 31.2 g/dl (32.0-36.5); MEAN CORPUSCULAR VOLUME 88.2 fl (80.0-96.0); MONO # 0.3 10^3/uL (0.0-0.8); MONO % 1.7 % (0.0-5.0); NEUTROPHILS # 17.6 10^3/uL (1.5-8.5); NEUTROPHILS % 93.3 % (36.0-66.0); PLATELET COUNT, AUTOMATED 326 10^3/uL (150-450); RED BLOOD COUNT 3.74 10^6/uL (4.00-5.40); WHITE BLOOD COUNT 18.8 10^3/uL (4.0-10.0)
[2020-05-28] MEDS ORDERED: metroNIDAZOLE 500 MG in IV 1 EA IV SCH (16:00)
[2020-05-28] MEDS: PIPERACILLIN/TAZOBACTAM SOD 3.375 GM in D5W MINI-BAG PLUS 50 ML IV SCH ×2 (17:08→23:00)
[2020-05-28] MEDS: ONDANSETRON 4 MG ORAL DISINTEGRATING TAB PO PRN (20:01)
[2020-05-28] MEDS: LORATADINE 10 MG TAB PO SCH (21:16)
[2020-05-28] MEDS: VENLAFAXINE 37.5 MG TAB PO SCH (21:16)
[2020-05-28] MEDS: RIVAROXABAN 20 MG TAB (XARELTO) PO SCH (21:16)
[2020-05-28] MEDS: ATORVASTATIN 20 MG TAB PO SCH (21:16)
[2020-05-28] MEDS: TOPIRAMATE (TopAMAX) 100 MG TAB PO SCH (21:17)
[2020-05-29 04:06] VITALS: BP 99/57
[2020-05-29] MEDS: PIPERACILLIN/TAZOBACTAM SOD 3.375 GM in D5W MINI-BAG PLUS 50 ML IV SCH ×3 (04:34→16:30)
[2020-05-29] MEDS: ACETAMINOPHEN TAB 650MG DOSE (2X325MG) PO PRN ×2 (04:34→21:15)
[2020-05-29] MEDS: ONDANSETRON 4 MG ORAL DISINTEGRATING TAB PO PRN ×3 (04:34→21:15)
[2020-05-29] MEDS: RIZATRIPTAN MLT 10 MG TAB PO PRN ×2 (04:49→21:14)
[2020-05-29 08:00] VITALS: O2SAT 92
[2020-05-29 08:03] LABS: BASO % 0.1 % (0.0-1.0); HEMOGLOBIN 9.7 g/dl (12.0-15.5); LYMPH # 1.1 10^3/uL (1.5-5.0); LYMPH % 9.1 % (24.0-44.0); MEAN CORPUSCULAR HEMOGLOBIN 27.4 pg (27.0-33.0); MEAN CORPUSCULAR HGB CONC 31.3 g/dl (32.0-36.5); MEAN CORPUSCULAR VOLUME 87.6 fl (80.0-96.0); MONO # 0.4 10^3/uL (0.0-0.8); MONO % 3.4 % (0.0-5.0); NEUTROPHILS # 10.7 10^3/uL (1.5-8.5); NEUTROPHILS % 86.6 % (36.0-66.0); PLATELET COUNT, AUTOMATED 328 10^3/uL (150-450); RED BLOOD COUNT 3.54 10^6/uL (4.00-5.40); WHITE BLOOD COUNT 12.4 10^3/uL (4.0-10.0)
[2020-05-29 08:14] LABS: INR 1.94; PROTHROMBIN TIME 22.6 SECONDS (12.5-14.3)
[2020-05-29] MEDS: VITAMIN D (CHOLECALCIFEROL) 400 INTERNATIONAL UNITS TAB PO SCH (08:14)
[2020-05-29 08:15] LABS: PARTIAL THROMBOPLASTIN TIME 57.7 SECONDS (24.2-38.5)
[2020-05-29] MEDS: dexameTHASONE 4 MG/ML 1ML VIAL (J1100 PER 1MG) IV SCH (08:15)
[2020-05-29] MEDS: DOXYCYCLINE HYCLATE 100MG TABLET PO SCH ×2 (08:15→21:16)
[2020-05-29] MEDS: OMEPRAZOLE 20 MG CAP PO SCH ×2 (08:15→21:17)
[2020-05-29] MEDS: MULTIVITAMINS/MINERALS THERAP 1 TAB PO SCH (08:15)
[2020-05-29] MEDS: SUCRALFATE 1 GM TAB PO SCH ×4 (08:15→21:16)
[2020-05-29] MEDS: guaiFENesin ER 600 MG TAB PO SCH ×2 (08:15→21:15)
[2020-05-29 08:23] LABS: ALBUMIN 2.4 GM/DL (3.2-5.2); ALT/SGPT 13 U/L (12-78); BILIRUBIN,DIRECT 0.1 MG/DL (0.0-0.2); BILIRUBIN,TOTAL 0.2 MG/DL (0.2-1.0); BLOOD UREA NITROGEN 9 MG/DL (7-18); CALCIUM LEVEL 8.5 MG/DL (8.5-10.1); CARBON DIOXIDE LEVEL 20 MEQ/L (21-32); CHLORIDE LEVEL 113 MEQ/L (98-107); CPK CREATINE PHOSPHOKINASE 58 U/L (26-192); CREATININE FOR GFR 0.64 MG/DL (0.55-1.30); FERRITIN 89 NG/ML (8-252); GLOMERULAR FILTRATION RATE > 60.0 (>58); GLUCOSE, FASTING 102 MG/DL (70-100); LDH LACTATE DEHYDROGENASE 303 U/L (84-246); MAGNESIUM LEVEL 1.9 MG/DL (1.8-2.4); NT-PRO BNP 573 PG/ML (<125); POTASSIUM SERUM 3.6 MEQ/L (3.5-5.1); SODIUM LEVEL 144 MEQ/L (136-145); TOTAL PROTEIN 6.3 GM/DL (6.4-8.2)
--- NOTE | 2020-05-29 11:18 | IPNPDOC ---
Text Note Date of Service The patient was seen on 05/29/20. NOTE Subjective: Patient is a 44-year-old female who presented to the ER with worsening shortness of breath. Patient reported that she has lost the sense of taste and smell on 05/18 and had gotten a rapid COVID19 teslas completed that day that was negative. She was experiencing diarrhea and persistent fevers and presented to the ER on 05/23 and subsequently tested positive for COVID19. Patient was discharged home with instructions to follow her pulse oximetry. On 05/26, patient had reported that her pulse oximeter read 87% while she was ambulating out of the bathroom. Upon arrival to emergency room, patient saturation was 96% on room air and with exertion dropped down to as low as 91%. Patient was admitted to the hospital service for further evaluation and treatment. In the emergency room, patient had a CT scan of completed of her abdomen that suggested sigmoid diverticulitis. Patient was seen and examined at the bedside. Currently patient reports that she feels better. Denies any nausea, vomiting, abdominal pain, diarrhea, or urinary discomfort. Patient reports that her shortness of breath is better, however, is on 4 L of nasal cannula oxygen. She reports a mild cough without any significant expectoration. Objective: Vitals (See below) General: Patient appears to be lying in bed, appears to be comfortable, no acute distress, is awake, alert and oriented 3 HEENT: NC, AT CVS: +S1S2 Lungs: Air entry appears to be fair bilaterally without any auscultated rhonchi, rales or wheezing Abdomen: Abdomen is soft without any distention or tenderness Extremities: LE are free of any pitting edema, - Calf tenderness Assessment and plan: Dyspnea - likely 2/2 COVID-19 pneumonitis, possibly 2/2 superimposed bacterial infection - Patient reports a mild cough - Patient is currently still on 4-5 L of nasal cannula oxygen. We'll continue to taper down as tolerated - Patient tested positive for COVID19 on 05/23; Symptoms had started on 05/18 - Inflammatory markers have had slight improvement; leukocytosis worsened - Imaging noted above - c/w Dexamethasone (Day #4) - Antibiotics were adjusted to broad coverage yesterday; c/w Zosyn (Day #2); s/p Ceftriaxone; c/wDoxycycline (Day#3); procalcitonin pending today - c/w Incentive spirometry / acapella s/p LLQ abdominal pain - likely 2/2 Acute diverticulitis - Patient has a history of diverticulitis in the past - Afebrile since 05/27 - Remains hemodynamically stable - CT abdomen / pelvis 05/27: 1. Abnormal lung base findings as described above suspicious for pneumonia. Correlate clinically. 2. Abnormal findings in the pelvis suggestive of inflammatory/infectious etiology and possibly secondary to sigmoid colon diverticulitis. 3. Other findings as described above. - c/w Zosyn (Day #2); s/p Ceftriaxone and Flagyl s/p Lactic acidosis - s/p IV fluid hydration s/p Hypokalemia PE 2013 / DVT 2014 - c/w full anticoagulation with Xarelto DLP - c/w Atorvastatin Chronic Asthma - No evidence of exacerbation - Continue with inhaled therapy as ordered Migraine headaches - c/w Rizatriptan, topiramate and Tylenol Depression - c/w Venlafaxine Iron deficiency anemia GERD - c/w Omeprazole DVT prophylaxis - c/w full anticoagulation with Xarelto Disposition: - Awaiting clinical improvement - Possible discharge within 24-48 hours VS,Fishbone, I+O VS, Fishbone, I+O Laboratory Tests 05/28/20 15:22 05/29/20 07:30 Vital Signs Date Time Temp Pulse Resp B/P (MAP) Pulse Ox O2 Delivery O2 Flow Rate FiO2 05/29/20 08:00 92 Nasal Cannula 5.0 05/29/20 04:06 98.4 69 19 99/57 (71) I&O- Last 24 Hours up to 6 AM 05/29/20 06:00 Intake Total 1370 ml Balance 1370 ml DEDRICK RIVERA MD May 29, 2020 11:18
[2020-05-29 11:19] VITALS: BP 108/62
[2020-05-29 14:00] VITALS: BP 109/51
[2020-05-29 20:00] VITALS: O2SAT 93
[2020-05-29 20:01] VITALS: BP 108/54
[2020-05-29] MEDS: RIVAROXABAN 20 MG TAB (XARELTO) PO SCH (21:15)
[2020-05-29] MEDS: TOPIRAMATE (TopAMAX) 100 MG TAB PO SCH (21:16)
[2020-05-29] MEDS: ATORVASTATIN 20 MG TAB PO SCH (21:16)
[2020-05-29] MEDS: LORATADINE 10 MG TAB PO SCH (21:16)
[2020-05-29] MEDS: VENLAFAXINE 37.5 MG TAB PO SCH (21:16)
[2020-05-30] VITALS (7 sets, daily range): BP systolic 101–117; BP diastolic 61; O2SAT 90–95
[2020-05-30] MEDS: PIPERACILLIN/TAZOBACTAM SOD 3.375 GM in D5W MINI-BAG PLUS 50 ML IV SCH ×3 (00:10→10:48)
[2020-05-30 06:43] LABS: BASO % 0.2 % (0.0-1.0); EOS % 0.1 % (0.0-3.0); HEMATOCRIT 31.3 % (36.0-47.0); HEMOGLOBIN 9.9 g/dl (12.0-15.5); LYMPH # 1.5 10^3/uL (1.5-5.0); LYMPH % 14.9 % (24.0-44.0); MEAN CORPUSCULAR HEMOGLOBIN 27.6 pg (27.0-33.0); MEAN CORPUSCULAR HGB CONC 31.6 g/dl (32.0-36.5); MEAN CORPUSCULAR VOLUME 87.2 fl (80.0-96.0); MONO # 0.6 10^3/uL (0.0-0.8); MONO % 6.2 % (0.0-5.0); NEUTROPHILS # 7.6 10^3/uL (1.5-8.5); NEUTROPHILS % 76.6 % (36.0-66.0); PLATELET COUNT, AUTOMATED 407 10^3/uL (150-450); RED BLOOD COUNT 3.59 10^6/uL (4.00-5.40); WHITE BLOOD COUNT 9.9 10^3/uL (4.0-10.0)
[2020-05-30 06:53] LABS: INR 1.67; PROTHROMBIN TIME 20.1 SECONDS (12.5-14.3)
[2020-05-30 06:55] LABS: PARTIAL THROMBOPLASTIN TIME 47.9 SECONDS (24.2-38.5)
[2020-05-30 07:06] LABS: ALBUMIN 2.3 GM/DL (3.2-5.2); ALT/SGPT 16 U/L (12-78); BILIRUBIN,DIRECT < 0.1 MG/DL (0.0-0.2); BILIRUBIN,TOTAL 0.2 MG/DL (0.2-1.0); BLOOD UREA NITROGEN 13 MG/DL (7-18); CALCIUM LEVEL 8.4 MG/DL (8.5-10.1); CARBON DIOXIDE LEVEL 21 MEQ/L (21-32); CHLORIDE LEVEL 113 MEQ/L (98-107); CPK CREATINE PHOSPHOKINASE 60 U/L (26-192); CREATININE FOR GFR 0.63 MG/DL (0.55-1.30); FERRITIN 70 NG/ML (8-252); GLOMERULAR FILTRATION RATE > 60.0 (>58); GLUCOSE, FASTING 90 MG/DL (70-100); LDH LACTATE DEHYDROGENASE 286 U/L (84-246); MAGNESIUM LEVEL 2.1 MG/DL (1.8-2.4); NT-PRO BNP 753 PG/ML (<125); POTASSIUM SERUM 3.4 MEQ/L (3.5-5.1); SODIUM LEVEL 146 MEQ/L (136-145); TOTAL PROTEIN 6.1 GM/DL (6.4-8.2)
[2020-05-30] MEDS ORDERED: POTASSIUM CHLORIDE 10 MEQ SR TABLET PO ONE (07:15)
[2020-05-30] MEDS: SUCRALFATE 1 GM TAB PO SCH ×2 (08:40→12:00)
[2020-05-30] MEDS: DOXYCYCLINE HYCLATE 100MG TABLET PO SCH (08:41)
[2020-05-30] MEDS: MULTIVITAMINS/MINERALS THERAP 1 TAB PO SCH (08:41)
[2020-05-30] MEDS: VITAMIN D (CHOLECALCIFEROL) 400 INTERNATIONAL UNITS TAB PO SCH (08:41)
[2020-05-30] MEDS: dexameTHASONE 4 MG/ML 1ML VIAL (J1100 PER 1MG) IV SCH (08:41)
[2020-05-30] MEDS: OMEPRAZOLE 20 MG CAP PO SCH (08:41)
[2020-05-30] MEDS: guaiFENesin ER 600 MG TAB PO SCH (08:41)
[2020-05-30] MEDS ORDERED: CEFD300CAP PO (09:44)
[2020-05-30] MEDS ORDERED: VENL100T PO (09:44)
[2020-05-30] MEDS ORDERED: DOXY-350 PO (09:44)
[2020-05-30] MEDS ORDERED: FLAG500T PO (09:44)
[2020-05-30] MEDS ORDERED: DEXA6TAB PO (09:44)
[2020-05-30] MEDS: ONDANSETRON 4 MG ORAL DISINTEGRATING TAB PO PRN (10:48)
--- NOTE | 2020-05-30 11:27 | DS.PDOC ---
Discharge Summary General Date of Admission May 26, 2020 at 15:49 Date of Discharge 05/30/2020 Discharge Summary PROCEDURES PERFORMED DURING STAY: [None]. ADMITTING DIAGNOSES / DISCHARGE DIAGNOSES: Dyspnea - likely 2/2 COVID-19 pneumonitis, possibly 2/2 superimposed bacterial infection s/p LLQ abdominal pain - likely 2/2 Acute diverticulitis s/p Lactic acidosis s/p Hypokalemia PE 2013 / DVT 2014 DLP Chronic Asthma Migraine headaches Depression Iron deficiency anemia GERD DVT prophylaxis COMPLICATIONS/CHIEF COMPLAINT: Shortness of breath HISTORY OF PRESENT ILLNESS: Patient is a 44-year-old female who presented to the ER with worsening shortness of breath. Patient reported that she has lost the sense of taste and smell on 05/18 and had gotten a rapid COVID19 teslas completed that day that was negative. She was experiencing diarrhea and persistent fevers and presented to the ER on 05/23 and subsequently tested positive for COVID19. Patient was discharged home with instructions to follow her pulse oximetry. On 05/26, patient had reported that her pulse oximeter read 87% while she was ambulating out of the bathroom. Upon arrival to emergency room, patient saturation was 96% on room air and with exertion dropped down to as low as 91%. Patient was admitted to the hospital service for further evaluation and treatment. HOSPITAL COURSE: Dyspnea - likely 2/2 COVID-19 pneumonitis, possibly 2/2 superimposed bacterial infection - Patient reports improvement in cough - Patient is currently on 2 L; and will be provided this on discharge - Patient tested positive for COVID19 on 05/23; Symptoms had started on 05/18 - Inflammatory markers continue to improve - Imaging noted above - c/w Dexamethasone (Day #5); will provide on discharge - Antibiotics were adjusted to broad coverage yesterday; c/w Zosyn (Day #5); s/p Ceftriaxone; c/w Doxycycline (Day#4) - Will adjust to Cefdinir / Doxycycline on discharge - c/w Incentive spirometry / acapella s/p LLQ abdominal pain - likely 2/2 Acute diverticulitis - Patient has a history of diverticulitis in the past - Afebrile since 05/27 - Remains hemodynamically stable - CT abdomen / pelvis 05/27: 1. Abnormal lung base findings as described above suspicious for pneumonia. Correlate clinically. 2. Abnormal findings in the pelvis suggestive of inflammatory/infectious etiology and possibly secondary to sigmoid colon diverticulitis. 3. Other findings as described above. - c/w Zosyn (Day #3); s/p Ceftriaxone and Flagyl; Will adjust to Cefdinir / Flagyl on discharge for completion of course s/p Lactic acidosis - s/p IV fluid hydration s/p Hypokalemia PE 2013 / DVT 2015 - c/w full anticoagulation with Xarelto DLP - c/w Atorvastatin Chronic Asthma - No evidence of exacerbation - Continue with inhaled therapy as ordered Migraine headaches - c/w Rizatriptan, topiramate and Tylenol Depression - c/w Venlafaxine; advised patient that the short acting dose should be taken TID Iron deficiency anemia GERD - c/w Omeprazole DVT prophylaxis - c/w full anticoagulation with Xarelto DISCHARGE MEDICATIONS: Please see below. ALLERGIES: Please see below. PHYSICAL EXAMINATION ON DISCHARGE: Vitals (See below) General: Lying in bed, no acute distress, comfortable, AAOx3 HEENT: NC, AT CVS: +S1S2 Lungs: Air entry again is fair without any auscultated rhonchi, rales or wheezing Abdomen: Soft, nondistended and no appreciable tenderness on physical exam Extremities: No evidence of edema, - Calf tenderness LABORATORY DATA: Please see below. ACTIVITY: [As tolerated]. DISCHARGE PLAN: Please follow up with PCP within 7 days Remain compliant with treatment plan and medications Return to the ER if you experience any problems DISPOSITION: Home DISCHARGE CONDITION: [Stable]. TIME SPENT ON DISCHARGE: 35 minutes. Vital Signs/I&Os Vital Signs Date Time Temp Pulse Resp B/P (MAP) Pulse Ox O2 Delivery O2 Flow Rate FiO2 05/30/20 10:38 86 Room Air 05/30/20 08:47 2.0 05/30/20 08:18 97.1 51 17 101/61 (74) I&O- Last 24 Hours up to 6 AM 05/30/20 06:00 Intake Total 1180 ml Balance 1180 ml Laboratory Data Labs 24H Laboratory Tests 2 05/30/20 06:21: Immature Granulocyte % (Auto) 2.0, Neutrophils (%) (Auto) 76.6H, Lymphocytes (%) (Auto) 14.9L, Monocytes (%) (Auto) 6.2H, Eosinophils (%) (Auto) 0.1, Basophils (%) (Auto) 0.2, Neutrophils # (Auto) 7.6, Lymphocytes # (Auto) 1.5, Monocytes # (Auto) 0.6, Eosinophils # (Auto) 0.0, Basophils # (Auto) 0.0, Nucleated Red Blood Cells % (auto) 0.2H, Prothrombin Time 20.1H, Prothromb Time International Ratio 1.67, Activated Partial Thromboplast Time 47.9H, Fibrinogen 600H, Anion Gap 12, Glomerular Filtration Rate > 60.0, Calcium Level 8.4L, Magnesium Level 2.1, Ferritin 70, Total Bilirubin 0.2, Direct Bilirubin < 0.1, Aspartate Amino Transf (AST/SGOT) 32, Alanine Aminotransferase (ALT/SGPT) 16, Alkaline Ph osphatase 65, Lactate Dehydrogenase 286H, Total Creatine Kinase 60, C-Reactive Protein, Quantitative 6.50H, EE-Fwf-N-Type Natriuretic Peptide 753H, Total Protein 6.1L, Albumin 2.3L, Albumin/Globulin Ratio 0.6L, Procalcitonin 0.16 CBC/BMP Laboratory Tests 05/30/20 06:21 Microbiology Microbiology 05/26/20 Blood Culture - Preliminary, Resulted No Growth after 72 hours. All specime... 05/26/20 Blood Culture - Preliminary, Resulted No Growth after 72 hours. All specime... Discharge Medications Scheduled Amoxicillin/Potassium Clav (Augmentin 875-125 Tablet) 1 Each Tablet, 875 MG PO BID, (Reported) FILLED 05/23/20 FOR DAYS Atorvastatin Calcium (Lipitor) 20 Mg Tablet, 20 MG PO QHS, (Reported) Azithromycin (Azithromycin) 250 Mg Tablet, 250 MG PO DAILY, (Reported) FILLED ON 05/23/20 FOR 5 DAYS Cefdinir (Cefdinir) 300 Mg Capsule, 1 CAP PO BID Cholecalciferol (Vitamin D3) (Vitamin D3) 125 Mcg Capsule, 250 MCG PO DAILY, (Reported) Dexamethasone (Dexamethasone) 6 Mg Tablet, 1 TAB PO DAILY Doxycycline Monohydrate (Doxycycline) 100 Mg Capsule, 1 CAP PO BID Loratadine (Loratadine) 10 Mg Tablet, 10 MG PO QHS, (Reported) Metronidazole (Flagyl) 500 Mg Tablet, 500 MG PO TID FOR 10 DAYS Multivitamins (Thera M Plus Tablet) 1 Tab Tab, 1 TAB PO DAILY, (Reported) Omeprazole (Omeprazole) 40 Mg Cap, 40 MG PO BID, (Reported) Rivaroxaban (Xarelto) 20 Mg Tab, 20 MG PO QHS, (Reported) Sucralfate (Sucralfate) 1 Gm Tablet, 1 GM PO ACHS, (Reported) Topiramate (Topiramate) 100 Mg Tablet, 200 MG PO QHS, (Reported) Venlafaxine HCl (Venlafaxine HCl) 100 Mg Tablet, 100 MG PO TID Scheduled PRN Albuterol Sulfate (Ventolin Hfa) 18 Gm Hfa.aer.ad, 2 PUFF INH QID PRN for SHORTNESS OF BREATH, (Reported) Ondansetron HCl (Ondansetron HCl) 4 Mg Tablet, 4 MG PO QID PRN for NAUSEA OR VOMITING, (Reported) Rizatriptan Benzoate (Rizatriptan) 10 Mg Tab, 10 MG PO PRN PRN for MIGRAINE, (Reported) Allergies Coded Allergies: NSAIDS (Non-Steroidal Anti-Inflamma (Verified Allergy, Intermediate, SWELLING CAN TAKE TORADOL, 06/11/19) rofecoxib (Verified Allergy, Intermediate, HIVES, JOINT SWELLING, 06/11/19) gabapentin (Verified Allergy, Mild, RASH, 05/26/20) levofloxacin (Verified Allergy, Mild, burning at IV site and hives, 05/26/20) oxycodone (Verified Adverse Reaction, Intermediate, SEVERE VOMITING, ) buprenorphine (Verified Adverse Reaction, Mild, "MAKES ME FEEL DRUNK", 05/26/20) duloxetine (Verified Adverse Reaction, Unknown, 09/29/19) psychosis DEDRICK RIVERA MD May 30, 2020 11:27
== END 2020-05-30 15:30 | disposition home or self-care (01) | DRG 137 ==
LOC: M ED 12:43 → M ED INP 15:49 → M 4MAIN 19:00
PROVIDERS: ADMIT Internal Medicine; ATTEND Internal Medicine
PROC: 3E0333Z Introduction of Anti-inflammatory into Peripheral Vein, Percutaneous Approach (ICD-10-PCS; principal; 2020-05-26)
DX: U07.1 COVID-19 (principal); J12.89 Other viral pneumonia; E87.2 Acidosis; K57.32 Diverticulitis of large intestine without perforation or abscess without bleeding; E87.6 Hypokalemia; E78.5 Hyperlipidemia, unspecified; J45.909 Unspecified asthma, uncomplicated; G43.909 Migraine, unspecified, not intractable, without status migrainosus; D50.9 Iron deficiency anemia, unspecified; F32.9 Major depressive disorder, single episode, unspecified; K21.9 Gastro-esophageal reflux disease without esophagitis; Z86.711 Personal history of pulmonary embolism; Z98.84 Bariatric surgery status; Z79.01 Long term (current) use of anticoagulants; Z79.899 Other long term (current) drug therapy; Z88.5 Allergy status to narcotic agent; Z88.6 Allergy status to analgesic agent; Z88.8 Allergy status to other drugs, medicaments and biological substances

== ENCOUNTER → 2020-06-11 | Outpatient (CLI) | payer OTHER ==
[~2020-06-11] MED LIST changes: +AZIT-10 PO; +CEFD300CAP PO; +DEXA6TAB PO; +DOXY-350 PO; +LORA-674 PO; +SUCR1TAB56 PO
--- NOTE | 2020-06-11 17:19 | REP ---
INDICATION: DYSPNEA ON EXERTION COMPARISON: 05/28/2020 TECHNIQUE: PA and lateral. FINDINGS: The mediastinum and cardiac silhouette are normal. Bilateral perihilar and lower lobe airspace disease (left greater than right) again noted but decreased and improved from prior examination. No effusion. No pneumothorax. Skeletal structures intact. IMPRESSION: Improved aeration with decreased bilateral infiltrates (left greater than right). <Electronically signed by Tariq Lopes > 06/11/20 [id number]
== END ==
LOC: M ADAMS 14:31
PROVIDERS: ATTEND Physician Assistant
DX: R06.00 Dyspnea, unspecified (principal); R91.8 Other nonspecific abnormal finding of lung field

== ENCOUNTER → 2020-06-25 | Outpatient (REF) | payer OTHER ==
[2020-06-25 18:50] LABS: THYROID STIMULATING HORMONE 1.06 uIU/ML (0.358-3.740)
[2020-06-25 18:52] LABS: PROLACTIN 9.9 NG/ML
== END ==
LOC: M PLALAB 12:34
PROVIDERS: ATTEND Nurse Practitioner Family
DX: N64.52 Nipple discharge (principal)

== ENCOUNTER 2020-10-11 18:33 | Emergency (ER) | payer OTHER ==
[~2020-10-11] VITALS: Ht 154.9 cm; Wt 103.3 kg
[~2020-10-11 18:33] MED LIST changes: +EMTR1TAB16 PO; -PEGPOW; +POLY510P14; -TRUVTAB PO
[2020-10-11 18:39] VITALS: BP 128/63
== END 2020-10-11 20:42 | disposition left against medical advice (07) ==
LOC: M ED 18:33
DX: Z53.21 Procedure and treatment not carried out due to patient leaving prior to being seen by health care provider (principal)

== ENCOUNTER 2020-11-01 02:46 | Emergency (ER) | payer OTHER ==
[~2020-11-01] VITALS: Ht 157.5 cm; Wt 103.4 kg
[~2020-11-01 02:46] MED LIST changes: -ARIP1TAB2 PO; +ARIP1TAB43 PO; +OMEP40CA4 PO; -OMEP40CA97 PO
[2020-11-01 02:47] VITALS: BP 137/73
--- NOTE | 2020-11-01 05:09 | REPVR ---
PROCEDURE INFORMATION: Exam: XR Right Forearm Exam date and time: 11/01/2020 3:46 AM Age: 45 years old Clinical indication: Other: Fall; Additional info: Fall pain TECHNIQUE: Imaging protocol: XR Right forearm. Views: 2 views. COMPARISON: US EXTREMITY NON VASCUL LIMITED RIGHT 11/05/2016 11:38 AM FINDINGS: Bones/joints: Normal. Soft tissues: Normal. IMPRESSION: No acute findings. Electronically signed by: Vito Odom On 11/01/2020 05:08:46 AM
--- NOTE | 2020-11-01 05:10 | REPVR ---
PROCEDURE INFORMATION: Exam: XR Right Wrist Exam date and time: 11/01/2020 3:46 AM Age: 45 years old Clinical indication: Other: Fall; Additional info: Fall pain TECHNIQUE: Imaging protocol: XR Right wrist. Views: 3 or more views. COMPARISON: US EXTREMITY NON VASCUL LIMITED RIGHT 11/05/2016 11:38 AM FINDINGS: Bones/joints: Normal. Soft tissues: Normal. IMPRESSION: No acute findings. Electronically signed by: Vito Odom On 11/01/2020 05:10:21 AM
[2020-11-01] MEDS ORDERED: NORCO 5/325MG TABLET (BULK FOR ED) PO ONE (05:45)
== END 2020-11-01 06:16 | disposition home or self-care (01) ==
LOC: M ED 02:46
DX: S63.501A Unspecified sprain of right wrist, initial encounter (principal); W19.XXXA Unspecified fall, initial encounter; Y92.89 Other specified places as the place of occurrence of the external cause; Y99.0 Civilian activity done for income or pay; J45.909 Unspecified asthma, uncomplicated; E61.1 Iron deficiency; G43.909 Migraine, unspecified, not intractable, without status migrainosus; K21.9 Gastro-esophageal reflux disease without esophagitis; Z79.899 Other long term (current) drug therapy; Z88.1 Allergy status to other antibiotic agents; Z88.5 Allergy status to narcotic agent; Z88.8 Allergy status to other drugs, medicaments and biological substances

== ENCOUNTER 2020-12-24 17:36 | Inpatient (IN) | payer MEDICAID, OTHER ==
[~2020-12-24] VITALS: Ht 157.5 cm; Wt 99.9 kg
[2020-12-24] MEDS ORDERED: DICY10CA13 (18:21)
[2020-12-24] MEDS ORDERED: FAMO20TA5 (18:21)
[2020-12-24] MEDS ORDERED: AMOX875T2 (18:21)
[2020-12-24 18:58] LABS: HEMATOCRIT 35.9 % (36.0-47.0); HEMOGLOBIN 10.9 g/dl (12.0-15.5); MEAN CORPUSCULAR HEMOGLOBIN 25.6 pg (27.0-33.0); MEAN CORPUSCULAR HGB CONC 30.4 g/dl (32.0-36.5); MEAN CORPUSCULAR VOLUME 84.5 fl (80.0-96.0); PLATELET COUNT, AUTOMATED 454 10^3/uL (150-450); RED BLOOD COUNT 4.25 10^6/uL (4.00-5.40); WHITE BLOOD COUNT 8.7 10^3/uL (4.0-10.0)
[2020-12-24 19:18] LABS: AMPHETAMINES LEVEL URINE NEGATIVE (NEGATIVE); BARBITURATES URINE NEGATIVE (NEGATIVE); BENZODIAZEPINES URINE NEGATIVE (NEGATIVE); CANNABINOIDS URINE NEGATIVE (NEGATIVE); COCAINE METABOLITE URINE NEGATIVE (NEGATIVE); METHADONE URINE NEGATIVE (NEGATIVE); OPIATES URINE NEGATIVE (NEGATIVE); PHENCYCLIDINE URINE NEGATIVE (NEGATIVE)
[2020-12-24 19:23] LABS: HCG, SERUM QUALITATIVE NEGATIVE (NEGATIVE)
[2020-12-24 19:28] LABS: ACETAMINOPHEN LEVEL 13.7 UG/ML (10.0-30.0); ALBUMIN 3.3 GM/DL (3.2-5.2); ALT/SGPT 19 U/L (12-78); BILIRUBIN,DIRECT < 0.1 MG/DL (0.0-0.2); BILIRUBIN,TOTAL 0.1 MG/DL (0.2-1.0); BLOOD UREA NITROGEN 16 MG/DL (7-18); CALCIUM LEVEL 8.7 MG/DL (8.5-10.1); CARBON DIOXIDE LEVEL 20 MEQ/L (21-32); CHLORIDE LEVEL 116 MEQ/L (98-107); CREATININE FOR GFR 0.62 MG/DL (0.55-1.30); ETHYL ALCOHOL (ETHANOL) 0.003 % (0.000-0.010); GLOMERULAR FILTRATION RATE > 60.0 (>58); GLUCOSE, FASTING 92 MG/DL (70-100); POTASSIUM SERUM 3.8 MEQ/L (3.5-5.1); SALICYLATE LEVEL < 1.7 MG/DL (5.0-30.0); SODIUM LEVEL 142 MEQ/L (136-145); TOTAL PROTEIN 7.1 GM/DL (6.4-8.2)
[2020-12-24] MEDS ORDERED: MAALOX 30 ML SUSP *UDC PO PRN (21:40)
[2020-12-24] MEDS ORDERED: ACETAMINOPHEN TAB 650MG DOSE (2X325MG) PO PRN (21:40)
[2020-12-24] MEDS ORDERED: traZODone 50 MG TAB PO PRN (21:40)
[2020-12-24] MEDS ORDERED: MOM 30ML SUSPENSION UDC PO PRN (21:40)
[2020-12-24] MEDS ORDERED: DICY10CA13 PO (21:49)
[2020-12-24] MEDS ORDERED: AUGM875T28 PO (21:49)
[2020-12-24] MEDS ORDERED: MAXA10TA15 PO (21:53)
[2020-12-24] MEDS ORDERED: VENL100T PO (21:53)
[2020-12-24] MEDS ORDERED: CYAN100049 PO (21:53)
[2020-12-24] MEDS ORDERED: FAMO20TA PO (21:53)
[2020-12-24] MEDS ORDERED: ACET-897 PO (21:53)
[2020-12-24] MEDS ORDERED: ASPI-161 PO (21:53)
[2020-12-24] MEDS ORDERED: HOME MED LIST COMPLETE! XX SCH (21:55)
[2020-12-24 22:19] LABS: RSV AMPLIFICATION NEGATIVE (NEGATIVE)
[2020-12-24] MEDS ORDERED: ALBUTEROL 90 MCG/ACT 8GM HFA INHALER INH PRN (22:45)
[2020-12-24] MEDS ORDERED: ONDANSETRON 4 MG TAB PO PRN (22:45)
[2020-12-24] MEDS ORDERED: DICYCLOMINE 10 MG CAP PO PRN (22:45)
[2020-12-24] MEDS: OMEPRAZOLE 20 MG CAP PO SCH (23:32)
[2020-12-24] MEDS: SUCRALFATE 1 GM TAB PO SCH (23:33)
[2020-12-24] MEDS: AUGMENTIN 875 MG TAB PO SCH (23:33)
[2020-12-24] MEDS: FAMOTIDINE 20 MG TAB PO SCH (23:33)
[2020-12-24] MEDS: ASPIRIN 81MG ENTERIC TABLET PO SCH (23:33)
[2020-12-24] MEDS: RIVAROXABAN 20 MG TAB (XARELTO) PO SCH (23:33)
[2020-12-24] MEDS: ATORVASTATIN 20 MG TAB PO SCH (23:33)
[2020-12-24] MEDS: LORATADINE 10 MG TAB PO SCH (23:33)
[2020-12-24] MEDS: TOPIRAMATE (TopAMAX) 100 MG TAB PO SCH (23:34)
[2020-12-24] MEDS: CYANOCOBALAMIN 500 MCG TAB PO SCH (23:34)
[2020-12-24 23:58] VITALS: BP 123/65
[2020-12-25] MEDS: VENLAFAXINE 25 MG TAB PO SCH ×2 (00:25→09:23)
[2020-12-25] MEDS ORDERED: OLANZapine ORAL DISINTEGRATING TAB 5MG PO PRN (00:40)
[2020-12-25] MEDS: SUCRALFATE 1 GM TAB PO SCH ×4 (06:32→20:39)
[2020-12-25] MEDS: MULTIVITAMINS/MINERALS THERAP 1 TAB PO SCH (09:24)
[2020-12-25] MEDS: VITAMIN D 1,000 INTERNATIONAL UNITS TABLET PO SCH (09:24)
[2020-12-25] MEDS: AUGMENTIN 875 MG TAB PO SCH ×2 (09:24→20:39)
[2020-12-25] MEDS: FAMOTIDINE 20 MG TAB PO SCH ×2 (09:24→20:39)
[2020-12-25] MEDS: OMEPRAZOLE 20 MG CAP PO SCH ×2 (09:24→20:39)
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
[2020-12-25] MEDS: VENLAFAXINE 37.5 MG TAB PO SCH (16:41)
[2020-12-25 17:14] VITALS: BP 115/62
--- NOTE | 2020-12-25 17:50 | HPEPDOC ---
General Date of Admission Dec 24, 2020 at 21:38 Date of Service: Dec 25, 2020 Chief Complaint The patient is a 45-year-old female admitted with a reason for visit of Unspecified Depressive Disorder. Source: Patient Exam Limitations: No limitations History of Present Illness Patient is 45 years old female with past medical history of depression/anxiety presented to hospital with depression. She stated that her medication for depression does not work for her and she had some suicidal ideation. During my interview patient denied fever, chills, nausea, vomiting, diarrhea or dysuria. Patient stated that after COVID-19 a few months ago she still have shortness of breath on exertion. Patient is very poor historian, most of the past medical history I obtained from previous records Home Medications Scheduled Amoxicillin/Potassium Clav (Augmentin 875-125 Tablet) 1 Each Tablet, 875 MG PO BID, (Reported) STARTED ON 12/13/20 Aspirin (Aspirin EC) 81 Mg Tablet.dr, 81 MG PO QHS, (Reported) Atorvastatin Calcium (Lipitor) 20 Mg Tablet, 20 MG PO QHS, (Reported) Cholecalciferol (Vitamin D3) (Vitamin D3) 125 Mcg Capsule, 250 MCG PO QHS, (Reported) Cyanocobalamin (Vitamin B-12) (Vitamin B-12) 1,000 Mcg Tablet, 1,000 MCG PO QHS, (Reported) Famotidine (Famotidine) 20 Mg Tablet, 20 MG PO BID, (Reported) Loratadine (Loratadine) 10 Mg Tablet, 10 MG PO QHS, (Reported) Multivitamins (Thera M Plus Tablet) 1 Tab Tab, 1 TAB PO DAILY, (Reported) Omeprazole (Omeprazole) 40 Mg Cap, 40 MG PO BID, (Reported) Rivaroxaban (Xarelto) 20 Mg Tab, 20 MG PO QHS, (Reported) Sucralfate (Sucralfate) 1 Gm Tablet, 1 GM PO ACHS, (Reported) Topiramate (Topiramate) 100 Mg Tablet, 200 MG PO QHS, (Reported) Venlafaxine HCl (Venlafaxine HCl) 100 Mg Tablet, 100 MG PO TID, (Reported) Scheduled PRN Acetaminophen (Tylenol Extra Strength) 500 Mg Tablet, 1,000 MG PO Q6H PRN for HEADACHE OR MILD PAIN, (Reported) Albuterol Sulfate (Ventolin Hfa) 18 Gm Hfa.aer.ad, 2 PUFF INH QID PRN for SHORTNESS OF BREATH, (Reported) Dicyclomine HCl (Dicyclomine HCl) 10 Mg Capsule, 20 MG PO TID PRN for CRAMPS, (Reported) Ondansetron HCl (Ondansetron HCl) 4 Mg Tablet, 4 MG PO QID PRN for NAUSEA OR VOMITING, (Reported) Rizatriptan Benzoate (Maxalt Block Press Operator) 10 Mg Tab.rapdis, 10 MG PO BID PRN for MIGRAINE, (Reported) Allergies Coded Allergies: NSAIDS (Non-Steroidal Anti-Inflamma (Verified Allergy, Intermediate, SWELLING CAN TAKE TORADOL, 06/11/19) rofecoxib (Verified Allergy, Intermediate, HIVES, JOINT SWELLING, 06/11/19) gabapentin (Verified Allergy, Mild, RASH, 05/26/20) levofloxacin (Verified Allergy, Mild, burning at IV site and hives, 05/26/20) oxycodone (Verified Adverse Reaction, Intermediate, SEVERE VOMITING, 05/26/20) buprenorphine (Verified Adverse Reaction, Mild, "MAKES ME FEEL DRUNK", 05/26/20) duloxetine (Verified Adverse Reaction, Unknown, 09/29/19) psychosis Past Medical History Medical History MIGRAINE HEADACHE, COMMON TYPE, MRI 10/17 WITH PUNCTATE AREAS OF INCREASED SIGNAL INTENSITY IN SUBCORTICAL WHITE MATTER - [facility] NEURO OBESITY, MORBID S/P LAPROSCOPIC GASTRIC BYPASS 08/2012-[facility] 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 S/P PARTIAL HYSTERECTOMY NONALCOHOLIC FATTY LIVER DISEASE SEEN BY JANUARY 2010 ULTRASOUND HYPERLIPIDEMIA 2B UMBILICAL HERNIA ANEMIA SECONDARY TO IRON AND B12 DEFICIENCY LUMBAR SPONDYLOSIS GERD/DYSPEPSIA-JUNE 2009 EGD WITH LA GRADE A REFLUX ESOPHAGITIS AND HIATAL HERNIA/GASTRIC ULCER BY EGD [id number] GRADE 1 DIASTOLIC DYSFUNCTION BY MAY 2010 TTE-ANTECOL DEPRESSION C H/O INTENTIONAL TRAMADOL OD 06/2013 REQUIRING MECHANICAL VENTILATION H/O BILATERAL PULMONARY EMBOLI INVOLVING B CENTRAL PA 06/2013, - B LE DVT US-FAVOR 2 TO IMMOBILITY/NO HYPERCOAG W/U DONE/NO PREVIOUS VTE - FVL, PT GENE VARIANT, PROTEIN C/S LEVEL, ACL RLE PARTIAL DVT POPLITEAL VEIN BY 08/02/14 US-XARELTO 15 BID BY [facility]-07/2014 -LA, NORMAL PROTEIN C/S/ATIII, -ACL, - HPP (FOR LA) PROBABLE ROYAL EXCISION L AXILLARY LN-BY PATHOLOGY REACTIVE, - FOR MALIGNANCY C BLACK TATTOO PIGMENT-01/2016-DIAZ 04/2016 -JONY, RF, CCP 5, CRP < 0.3/ESR 15 DIVERTICULITIS-FIRST EPISODE- 08/2016 CT;SECOND 11/2017 CT INTENTIONAL OD AMBIEN 11/10/17, ADMITTED [facility] CERVICAL SPONDYLOSIS-C5/6 BULGE S COMPRESSION BY 10/2017 MRI ALCOHOL ABUSE 05/22 COVID 19 PN, REQUIRING O2 Surgical History BTL C SECTION X 2 GASTRIC BYPASS ENDOSCOPY IVC FILTER PLACED/REMOVED-BRET 11/18/2014, END-[id number]-[id number] PATHOLOGY SMALL BOWEL OBSTRUCTION 12/09/14 Family History Both parents had diabetes Social History * Smoker: Denies Alcohol: occationally Drugs: denies A-FIB/CHADSVASC A-FIB History Current/History of A-Fib/PAF?: No Current PO Anticoag Therapy: No Review of Systems Constitutional: Denies: Chills, Fever Eyes: Denies: Pain Skin: Denies: Rash Pulmonary: Denies: Dyspnea, Cough Cardiovascular: Denies: Chest Pain Gastrointestinal: Denies: Nausea, Vomiting Genitourinary: Denies: Dysuria Hematologic: Denies: Bruising Endocrine: Denies: Polydipsia Musculoskeletal: Denies: Neck Pain Neurological: Denies: Weakness Psych: Reports: Depression Physical Examination General Exam: Positive: Alert, Cooperative Eye Exam: Positive: PERRLA ENT Exam: Positive: Atraumatic Neck Exam: Positive: Supple; Negative: JVD Chest Exam: Positive: Clear to auscultation Heart Exam: Positive: Rate Normal Telemetry: Positive: No significant arrhythmia Abdomen Exam: Positive: Normal bowel sounds Extremity Exam: Negative: Clubbing, Cyanosis Skin Exam: Positive: Nl turgor and temperature Neuro Exam: Positive: Normal Gait Psych Exam: Positive: Oriented x 3 Vital Signs Vital Signs Date Time Temp Pulse Resp B/P (MAP) Pulse Ox O2 Delivery O2 Flow Rate FiO2 12/25/20 17:14 98.0 60 14 115/62 (79) 12/24/20 23:58 97 Room Air Laboratory Data Labs 24H Laboratory Tests 2 12/24/20 18:27: Urine Opiates Screen NEGATIVE, Urine Methadone Screen NEGATIVE, Urine Barbiturates Screen NEGATIVE, Urine Phencyclidine Screen NEGATIVE, Urine Amphetamines Screen NEGATIVE, Urine Benzodiazepines Screen NEGATIVE, Urine Cocaine Metabolite Screen NEGATIVE, Urine Cannabinoids Screen NEGATIVE 12/24/20 18:35: Nucleated Red Blood Cells % (auto) 0.0, Anion Gap 6L, Glomerular Filtration Rate > 60.0, Calcium Level 8.7, Total Bilirubin 0.1L, Direct Bilirubin < 0.1, Aspartate Amino Transf (AST/SGOT) 23, Alanine Aminotransferase (ALT/SGPT) 19, Alkaline Phosphatase 80, Total Protein 7.1, Albumin 3.3, Albumin/Globulin Ratio 0.9L, Thyroid Stimulating Hormone (TSH) 1.730, Human Chorionic Gonadotropin, Jose l NEGATIVE, Salicylates Level < 1.7L, Acetaminophen Level 13.7, Ethyl Alcohol Level 0.003 12/24/20 21:28: Coronavirus (COVID-19)(PCR) NEGATIVE, Influenza Type A (RT-PCR) NEGATIVE, Influenza Type B (RT-PCR) NEGATIVE, Respiratory Syncytial Virus (PCR) NEGATIVE CBC/BMP Laboratory Tests 12/24/20 18:35 Assessment/Plan Patient is 45 years old female with past medical history of depression/anxiety presented to hospital with depression. She stated that her medication for depression does not work for her and she had some suicidal ideation. During my interview patient denied fever, chills, nausea, vomiting, diarrhea or dysuria Problems (1) Depression, major Status: Acute Problem Text: Defer treatment to psych team (2) History of pulmonary embolism Status: Chronic Problem Text: Continue oral targeted anticoagulation (3) Hyperlipidemia Status: Chronic Problem Text: Continue statin (4) Iron deficiency anemia Status: Chronic Problem Text: Continue iron supplementation Patient will need work-up with PCP in the outpatient settings (5) GERD (gastroesophageal reflux disease) Status: Chronic Problem Text: Continue home meds Plan / VTE VTE Prophylaxis Ordered?: No VTE Exclusion Mechanical Proph: Low Risk for VTE LAURIE PAYAN DO Dec 25, 2020 17:50
[2020-12-25] MEDS: ATORVASTATIN 20 MG TAB PO SCH (20:38)
[2020-12-25] MEDS: IRON POLYSAC (NIFEREX) 150 MG CAP PO SCH (20:39)
[2020-12-25] MEDS: CYANOCOBALAMIN 500 MCG TAB PO SCH (20:39)
[2020-12-25] MEDS: RIVAROXABAN 20 MG TAB (XARELTO) PO SCH (20:39)
[2020-12-25] MEDS: TOPIRAMATE (TopAMAX) 100 MG TAB PO SCH (20:39)
[2020-12-25] MEDS: LORATADINE 10 MG TAB PO SCH (20:39)
[2020-12-25] MEDS: ASPIRIN 81MG ENTERIC TABLET PO SCH (20:39)
[2020-12-25] MEDS ORDERED: MIRTAZAPINE 15 MG TAB PO SCH (21:00)
[2020-12-26 05:34] VITALS: BP 135/65
[2020-12-26] MEDS: SUCRALFATE 1 GM TAB PO SCH ×2 (06:58→11:04)
[2020-12-26] MEDS ORDERED: VENLAFAXINE 37.5 MG TAB PO SCH (09:00)
[2020-12-26] MEDS: VENLAFAXINE 37.5 MG TAB PO SCH (09:00)
[2020-12-26] MEDS: FAMOTIDINE 20 MG TAB PO SCH (09:31)
[2020-12-26] MEDS: IRON POLYSAC (NIFEREX) 150 MG CAP PO SCH (09:32)
[2020-12-26] MEDS: AUGMENTIN 875 MG TAB PO SCH (09:32)
[2020-12-26] MEDS: MULTIVITAMINS/MINERALS THERAP 1 TAB PO SCH (09:33)
[2020-12-26] MEDS: OMEPRAZOLE 20 MG CAP PO SCH (09:33)
[2020-12-26] MEDS: VITAMIN D 1,000 INTERNATIONAL UNITS TABLET PO SCH (09:33)
[2020-12-26] MEDS ORDERED: VENLAFAXINE 37.5 MG TAB PO ONE (12:30)
[2020-12-26] MEDS ORDERED: MIRT-62 PO (12:57)
[2020-12-26] MEDS ORDERED: NIFE15CA PO (12:57)
[2020-12-26] MEDS ORDERED: VENL150C43 PO (12:57)
--- NOTE | 2020-12-26 13:18 | MHDS ---
[facility] DISCHARGE SUMMARY DATE OF ADMISSION: 12/24/2020 DATE OF DISCHARGE: 12/26/2020 DIAGNOSIS: Major depressive disorder, recurrent. IDENTIFYING DATA: She is a 45-year-old female, , living with her 14-year-old child. Was admitted because of suicidal thoughts. For details of history of present illness (HPI), past psychiatric history, personal history, social history, please refer to the initial evaluation. COURSE IN THE HOSPITAL: Patient was initially depressed and reported that she had suicidal thoughts, which were vague; however, there were no plans. Reported that her Effexor is not helping her. She wanted a change in the medication. It was decided that we would taper off Effexor slowly and place her on Remeron. She was placed on Remeron 15 mg, and Effexor 200 mg, and it was on gradual titration; however, patient persisted on getting discharged in spite of explaining to her about the severe withdrawal symptoms she can have if not properly tapered off. She received individual, group, and milieu therapy. She denied any suicidal thoughts. She reported she slept well. She was stable at the time of discharge. Pt wants to make her own titration with the help of her own out pt doctor. Pt has capacity to make her own decision. MENTAL STATUS EXAMINATION: Casually dressed, cooperative. Made good eye contact. Psychomotor activity is normal. Speech rate, rhythm, volume are good. Thought process linear, goal directed. Mood is mildly anxious and somewhat depressed. Denied any auditory or visual hallucinations. Denied any suicidal or homicidal ideas. Her memory immediate, remote, recent are good. She is oriented to time, place, and person. REVIEW OF SYSTEMS: Denied any chest pain, palpitations. Denied abdominal pain, dysuria. Denied dizziness. Denied any chest pain or shortness of breath. VITAL SIGNS: Temperature 97.8, pulse is 56, respiratory rate is 18, blood pressure is 135/65, pulse oximetry 98. DISCHARGE MEDICATIONS: - Effexor 150 mg in daytime - Remeron 15 mg at night She will be followed up at [facility] outpatient. She will be going home after the discharge. [facility] HOSPITALRadha
[2020-12-26] MEDS ORDERED: MIRTAZAPINE 15 MG TAB PO SCH ×2 (21:00)
== END 2020-12-26 14:30 | disposition home or self-care (01) | DRG 751 ==
LOC: M ED 17:36 → M ED INP 21:38 → M PSY 12-25 00:10
PROVIDERS: ADMIT Psychiatry & Neurology Psychiatry; ATTEND Psychiatry & Neurology Psychiatry
DX: F33.9 Major depressive disorder, recurrent, unspecified (principal); Z68.41 Body mass index [BMI] 40.0-44.9, adult; R45.851 Suicidal ideations; K76.0 Fatty (change of) liver, not elsewhere classified; E66.01 Morbid (severe) obesity due to excess calories; D53.8 Other specified nutritional anemias; G43.009 Migraine without aura, not intractable, without status migrainosus; I87.2 Venous insufficiency (chronic) (peripheral); E78.5 Hyperlipidemia, unspecified; D50.9 Iron deficiency anemia, unspecified; M47.816 Spondylosis without myelopathy or radiculopathy, lumbar region; K21.9 Gastro-esophageal reflux disease without esophagitis; Z86.711 Personal history of pulmonary embolism; Z91.5 Personal history of self-harm; Z63.4 Disappearance and death of family member; Z86.16 Personal history of COVID-19; Z20.822 Contact with and (suspected) exposure to COVID-19; Z98.84 Bariatric surgery status

== ENCOUNTER → 2021-01-09 | Outpatient (REF) | payer OTHER ==
[~2021-01-09] MED LIST changes: +ACET-897 PO; +AMOX875T2; +ASPI-161 PO; +CYAN100049 PO; +DICY10CA13; +FAMO20TA PO; +FAMO20TA5; +MAXA10TA15 PO; +MIRT-62 PO; +NIFE15CA PO; +VENL150C43 PO
[2021-01-09 13:24] LABS: AMORPHOUS SEDIMENT SMALL (NEGATIVE); APPEARANCE, URINE CLOUDY (CLEAR); BACTERIA, URINE AUTO NEGATIVE (NEGATIVE); BILIRUBIN, URINE AUTO NEGATIVE (NEGATIVE); BLOOD, URINE BLOOD NEGATIVE (NEGATIVE); COLOR, URINE YELLOW (YELLOW); GLUCOSE, URINE (UA) AUTO NEGATIVE (NEGATIVE); KETONE, URINE AUTO NEGATIVE (NEGATIVE); LEUKOCYTE ESTERASE, URINE AUTO TRACE (NEGATIVE); MUCUS, URINE SMALL (NEGATIVE); NITRITE, URINE AUTO NEGATIVE (NEGATIVE); PROTEIN, URINE AUTO NEGATIVE (NEGATIVE); RBC, URINE AUTO 3 /HPF (0-3); SPECIFIC GRAVITY URINE AUTO 1.024 (1.002-1.035); SQUAMOUS EPITHELIAL CELL UR AU 10 /HPF (0-6); UROBILINOGEN, URINE AUTO 0.2 mg/dL (0.0-2.0); WBC, URINE AUTO 2 /HPF (0-3)
== END ==
LOC: M SFHCADAM 11:38
PROVIDERS: ATTEND Physician Assistant Medical
DX: M54.5 Low back pain (principal)

== ENCOUNTER 2021-11-11 18:26 | Emergency (ER) | payer OTHER ==
[~2021-11-11] VITALS: Ht 154.9 cm; Wt 101.5 kg
[2021-11-11 18:26] VITALS: BP 140/75
[2021-11-11 19:42] LABS: BASO # 0.1 10^3/uL (0.0-0.2); BASO % 0.8 % (0.0-1.0); EOS # 0.2 10^3/uL (0.0-0.5); EOS % 2.6 % (0.0-3.0); HEMATOCRIT 33.7 % (36.0-47.0); HEMOGLOBIN 10.2 g/dl (12.0-15.5); LYMPH # 2.1 10^3/uL (1.5-5.0); LYMPH % 33.5 % (24.0-44.0); MEAN CORPUSCULAR HEMOGLOBIN 25.8 pg (27.0-33.0); MEAN CORPUSCULAR HGB CONC 30.3 g/dl (32.0-36.5); MEAN CORPUSCULAR VOLUME 85.3 fl (80.0-96.0); MONO # 0.5 10^3/uL (0.0-0.8); MONO % 8.1 % (2.0-8.0); NEUTROPHILS # 3.4 10^3/uL (1.5-8.5); NEUTROPHILS % 54.8 % (36.0-66.0); PLATELET COUNT, AUTOMATED 371 10^3/uL (150-450); RED BLOOD COUNT 3.95 10^6/uL (4.00-5.40); WHITE BLOOD COUNT 6.2 10^3/uL (4.0-10.0)
[2021-11-11 20:13] LABS: ALBUMIN 3.9 GM/DL (3.2-5.2); ALT/SGPT 17 U/L (12-78); BILIRUBIN,DIRECT < 0.1 MG/DL (0.0-0.2); BILIRUBIN,TOTAL 0.2 MG/DL (0.2-1.0); BLOOD UREA NITROGEN 10 MG/DL (7-18); CALCIUM LEVEL 9.2 MG/DL (8.5-10.1); CARBON DIOXIDE LEVEL 22 MEQ/L (21-32); CHLORIDE LEVEL 110 MEQ/L (98-107); CREATININE FOR GFR 0.77 MG/DL (0.55-1.30); GLOMERULAR FILTRATION RATE > 60.0 (>58); GLUCOSE, FASTING 90 MG/DL (70-100); LIPASE 92 U/L (73-393); POTASSIUM SERUM 3.7 MEQ/L (3.5-5.1); SODIUM LEVEL 141 MEQ/L (136-145); TOTAL PROTEIN 7.4 GM/DL (6.4-8.2)
[2021-11-11] MEDS ORDERED: ISOVUE-370 76% 100ML VIAL As Ordered ONE (20:36)
[2021-11-11] MEDS ORDERED: NS 1,000 ML IV ONE (20:40)
[2021-11-11] MEDS ORDERED: MORPHINE 4 MG/ML 1ML VIAL/SYRINGE IV ONE (20:40)
[2021-11-11] MEDS ORDERED: ONDANSETRON 4MG 2ML VIAL IV ONE (20:40)
== END 2021-11-11 22:51 | disposition home or self-care (01) ==
LOC: M ED 18:26
DX: R10.31 Right lower quadrant pain (principal); K62.5 Hemorrhage of anus and rectum; Z87.19 Personal history of other diseases of the digestive system; Z98.84 Bariatric surgery status; Z79.899 Other long term (current) drug therapy; Z79.82 Long term (current) use of aspirin; Z79.01 Long term (current) use of anticoagulants; Z88.1 Allergy status to other antibiotic agents; Z88.5 Allergy status to narcotic agent; Z88.8 Allergy status to other drugs, medicaments and biological substances
CPT/HCPCS: 74177; 80048; 80076; 81001; 83605; 83690; 85025; 87088; 96361; 96374; 96375; 99283; J2270; J2405; Q9967

== ENCOUNTER 2022-09-16 10:27 | Emergency (ER) | payer OTHER ==
[~2022-09-16] VITALS: Ht 157.5 cm; Wt 102.4 kg
[~2022-09-16 10:27] MED LIST changes: -DOXY-350 PO; +DOXY-444 PO; -MAXA10TA14 PO; -MEDR10TA PO; +MEDR10TA9 PO; +RIZA10TA64 PO; +TOPI-254 PO; -TOPI50TA9 PO
[2022-09-16] MEDS ORDERED: MORPHINE 4 MG/ML 1ML VIAL IV ONE (11:10)
[2022-09-16] MEDS ORDERED: LIDOCAINE 4% CREAM 5GM (LMX4) TOP ONE (11:10)
[2022-09-16] MEDS ORDERED: ONDANSETRON 4MG 2ML VIAL IV ONE (11:10)
[2022-09-16 11:42] LABS: BASO # 0.1 10^3/uL (0.0-0.2); BASO % 0.9 % (0.0-1.0); EOS # 0.2 10^3/uL (0.0-0.5); EOS % 2.9 % (0.0-3.0); HEMATOCRIT 28.6 % (36.0-47.0); HEMOGLOBIN 8.3 g/dl (12.0-15.5); LYMPH # 2.2 10^3/uL (1.5-5.0); LYMPH % 31.2 % (24.0-44.0); MEAN CORPUSCULAR HEMOGLOBIN 22.4 pg (27.0-33.0); MEAN CORPUSCULAR VOLUME 77.1 fl (80.0-96.0); MONO # 0.6 10^3/uL (0.0-0.8); MONO % 8.3 % (2.0-8.0); NEUTROPHILS % 56.3 % (36.0-66.0); PLATELET COUNT, AUTOMATED 407 10^3/uL (150-450); RED BLOOD COUNT 3.71 10^6/uL (4.00-5.40)
[2022-09-16 11:58] LABS: INR 1.11; PROTHROMBIN TIME 14.5 SECONDS (12.5-14.5)
[2022-09-16 12:01] LABS: D-DIMER QUANT 314.72 ng/ml (<500)
[2022-09-16 12:10] LABS: ALBUMIN 3.5 G/DL (3.2-5.2); ALKALINE PHOSPHATASE 66 U/L (46-116); ALT/SGPT < 9 U/L (7.0-40); AST/SGOT 18 U/L (<34); BILIRUBIN,DIRECT < 0.1 MG/DL (<0.4); BILIRUBIN,TOTAL 0.2 MG/DL (0.3-1.2); BLOOD UREA NITROGEN 17 MG/DL (9-23); CALCIUM LEVEL 8.8 MG/DL (8.5-10.1); CARBON DIOXIDE LEVEL 24 MMOL/L (20-31); CHLORIDE LEVEL 107 MMOL/L (98-107); CREATININE FOR GFR 0.71 MG/DL (0.55-1.30); GLOMERULAR FILTRATION RATE > 60.0 (>58); GLUCOSE, FASTING 89 MG/DL (60-100); POTASSIUM SERUM 3.6 MMOL/L (3.5-5.1); SODIUM LEVEL 139 MMOL/L (136-145); TOTAL PROTEIN 6.6 G/DL (5.7-8.2)
[2022-09-16] MEDS ORDERED: methylPREDNISolone 125MG 2ML VIAL IV ONE (13:10)
[2022-09-16] MEDS ORDERED: VENL100T PO (13:14)
[2022-09-16] MEDS ORDERED: XARE20TA PO (13:14)
[2022-09-16] MEDS ORDERED: PRED20TA PO (13:17)
[2022-09-16 13:30] VITALS: BP 116/59
== END 2022-09-16 13:30 | disposition home or self-care (01) ==
LOC: M ED 10:27
DX: S80.12XA Contusion of left lower leg, initial encounter (principal); X58.XXXA Exposure to other specified factors, initial encounter; Y92.89 Other specified places as the place of occurrence of the external cause; Y93.89 Activity, other specified; Y99.8 Other external cause status; E78.5 Hyperlipidemia, unspecified; K21.9 Gastro-esophageal reflux disease without esophagitis; G90.50 Complex regional pain syndrome I, unspecified; G57.90 Unspecified mononeuropathy of unspecified lower limb; Z79.82 Long term (current) use of aspirin; Z98.84 Bariatric surgery status; Z79.01 Long term (current) use of anticoagulants
CPT/HCPCS: 80048; 80076; 85025; 85379; 85610; 85730; 93971; 96374; 96375; 99283; J2405; J2930

== ENCOUNTER 2022-10-22 22:48 | Emergency (ER) | payer OTHER ==
[2022-10-23] MEDS ORDERED: DERMABOND TOPICAL SKIN ADHESIVE TOP ONE (01:10)
[2022-10-23 02:46] VITALS: BP 129/68; TEMP 97.6; O2SAT 97
== END 2022-10-23 02:51 | disposition home or self-care (01) ==
LOC: EDBD 22:48 → M ED 22:48
DX: S01.111A Laceration without foreign body of right eyelid and periocular area, initial encounter (principal); S00.03XA Contusion of scalp, initial encounter; Y04.0XXA Assault by unarmed brawl or fight, initial encounter; Y92.410 Unspecified street and highway as the place of occurrence of the external cause; Y93.89 Activity, other specified; Y99.8 Other external cause status; E78.5 Hyperlipidemia, unspecified; J45.909 Unspecified asthma, uncomplicated; F32.A Depression, unspecified; K21.9 Gastro-esophageal reflux disease without esophagitis; Z79.01 Long term (current) use of anticoagulants; Z88.6 Allergy status to analgesic agent; Z88.8 Allergy status to other drugs, medicaments and biological substances; Z79.51 Long term (current) use of inhaled steroids; Z79.82 Long term (current) use of aspirin; Z79.899 Other long term (current) drug therapy

== ENCOUNTER 2023-01-26 18:43 | Observation (INO) | payer OTHER ==
[~2023-01-26] VITALS: Ht 157.5 cm; Wt 105.5 kg
[~2023-01-26 18:43] MED LIST changes: +DICY-61; +DICY-61 PO; -DICY10CA13; -DICY10CA13 PO; +LORA-1041 PO; -LORA-674 PO; -MAXA10TA15 PO; -MIRT-62 PO; +MIRT-88 PO; -MISO200T56 PO; +MISO200T83 PO; +RIZA10TA66 PO
[2023-01-26 19:57] LABS: BASO # 0.1 10^3/uL (0.0-0.2); BASO % 0.7 % (0.0-1.0); EOS # 0.2 10^3/uL (0.0-0.5); HEMATOCRIT 24.7 % (36.0-47.0); LYMPH # 2.7 10^3/uL (1.5-5.0); LYMPH % 28.8 % (24.0-44.0); MEAN CORPUSCULAR HEMOGLOBIN 19.5 pg (27.0-33.0); MEAN CORPUSCULAR HGB CONC 27.5 g/dl (32.0-36.5); MONO # 0.7 10^3/uL (0.0-0.8); MONO % 7.2 % (2.0-8.0); NEUTROPHILS # 5.8 10^3/uL (1.5-8.5); NEUTROPHILS % 60.9 % (36.0-66.0); PLATELET COUNT, AUTOMATED 581 10^3/uL (150-450); RED BLOOD COUNT 3.48 10^6/uL (4.00-5.40); WHITE BLOOD COUNT 9.5 10^3/uL (4.0-10.0)
[2023-01-26 20:01] LABS: HEMOGLOBIN 6.8 g/dl (12.0-15.5)
[2023-01-26 20:05] LABS: INR 1.16; PROTHROMBIN TIME 14.5 SECONDS (12.5-14.5)
[2023-01-26 20:07] LABS: PARTIAL THROMBOPLASTIN TIME 28.4 SECONDS (24.8-34.2)
[2023-01-26 20:12] LABS: LIPASE 39 U/L (12-53)
[2023-01-26 20:14] LABS: ALBUMIN 3.4 G/DL (3.2-5.2); ALKALINE PHOSPHATASE 60 U/L (46-116); ALT/SGPT 15 U/L (7.0-40); AST/SGOT 56 U/L (<34); BILIRUBIN,DIRECT < 0.1 MG/DL (<0.4); BILIRUBIN,TOTAL 0.2 MG/DL (0.3-1.2); BLOOD UREA NITROGEN 16 MG/DL (9-23); CALCIUM LEVEL 8.7 MG/DL (8.5-10.1); CARBON DIOXIDE LEVEL 20 MMOL/L (20-31); CHLORIDE LEVEL 112 MMOL/L (98-107); GLOMERULAR FILTRATION RATE > 60.0 (>58); GLUCOSE, FASTING 88 MG/DL (60-100); POTASSIUM SERUM 4.9 MMOL/L (3.5-5.1); SODIUM LEVEL 141 MMOL/L (136-145); TOTAL PROTEIN 6.8 G/DL (5.7-8.2)
[2023-01-26] MEDS ORDERED: diphenhydrAMINE 50MG/ML VIAL IV ONE (21:10)
[2023-01-26] MEDS ORDERED: methylPREDNISolone 125MG 2ML VIAL IV ONE (21:10)
[2023-01-26] MEDS ORDERED: NS 1,000 ML IV ONE (21:10)
[2023-01-26] MEDS ORDERED: METOCLOPRAMIDE INJ 10MG/2ML VIAL IV ONE (21:10)
[2023-01-26] MEDS ORDERED: ACETAMINOPHEN 500 MG TAB PO ONE (21:10)
[2023-01-26] MEDS ORDERED: PANTOPRAZOLE 40MG VIAL IV ONE (21:10)
[2023-01-26 21:28] LABS: TOTAL IRON BINDING CAPACITY 446 UG/DL (250-425)
[2023-01-26 21:31] LABS: FERRITIN 1.4 NG/ML (7.3-270.7)
[2023-01-26 21:32] LABS: IRON (FE) < 5 UG/DL (50-170); PERCENT SATURATION 1.1 % (13.2-45.0)
[2023-01-26] MEDS ORDERED: ISOVUE-370 76% 100ML VIAL As Ordered ONE (21:35)
[2023-01-26 22:23] LABS: RSV AMPLIFICATION NEGATIVE (NEGATIVE)
[2023-01-26] MEDS: GASTROGRAFIN SOLUTION 30ML PO SCH ×2 (22:27→23:02)
[2023-01-26 23:34] VITALS: BP 129/69; TEMP 98.1; O2SAT 98
[2023-01-26 23:45] VITALS: BP 129/69; TEMP 98.1; O2SAT 99
[2023-01-27] VITALS (11 sets, daily range): BP systolic 116–134; BP diastolic 64–88; TEMP 97.6–98.8; O2SAT 97–99
[2023-01-27] MEDS ORDERED: ACETAMINOPHEN TAB 650MG DOSE (2X325MG) PO PRN (02:30)
[2023-01-27] MEDS ORDERED: FIORICET TAB PO PRN (04:30)
[2023-01-27] MEDS ORDERED: ONDA4TAB6 PO (04:49)
[2023-01-27] MEDS ORDERED: VENL100T PO (04:49)
[2023-01-27] MEDS ORDERED: PROM25TA12 PO (04:51)
[2023-01-27] MEDS ORDERED: ERGO500029 PO (04:51)
[2023-01-27] MEDS ORDERED: HOME MED LIST COMPLETE! XX SCH (04:55)
[2023-01-27 05:40] LABS: HEMOGLOBIN 8.6 g/dl (12.0-15.5); MEAN CORPUSCULAR HEMOGLOBIN 21.4 pg (27.0-33.0); MEAN CORPUSCULAR HGB CONC 28.7 g/dl (32.0-36.5); MEAN CORPUSCULAR VOLUME 74.6 fl (80.0-96.0); PLATELET COUNT, AUTOMATED 546 10^3/uL (150-450); RED BLOOD COUNT 4.02 10^6/uL (4.00-5.40); WHITE BLOOD COUNT 12.6 10^3/uL (4.0-10.0)
[2023-01-27] MEDS ORDERED: ALBUTEROL 90 MCG/ACT 8GM HFA INHALER INH PRN (07:20)
[2023-01-27] MEDS ORDERED: PANTOPRAZOLE 40MG VIAL IV SCH (07:20)
[2023-01-27] MEDS ORDERED: DICYCLOMINE 10 MG CAP PO PRN (07:20)
[2023-01-27] MEDS ORDERED: RIZATRIPTAN MLT 10 MG TAB PO PRN (07:20)
[2023-01-27] MEDS ORDERED: FERRIC CARBOXYMALTOSE INJ 750 MG, VIAL MATE ADAPTER 1 EACH in NS 250 ML IV ONE ×2 (08:00→11:00)
[2023-01-27] MEDS ORDERED: FAMOTIDINE 20 MG TAB PO SCH (09:00)
[2023-01-27] MEDS ORDERED: SUCRALFATE 1 GM TAB PO SCH (09:00)
[2023-01-27] MEDS ORDERED: OMEPRAZOLE 20MG CAP PO SCH (09:00)
[2023-01-27] MEDS ORDERED: FERROUS GLUCONATE 324 MG TAB PO SCH (09:00)
[2023-01-27] MEDS ORDERED: diphenhydrAMINE 25MG CAP PO ONE (10:55)
[2023-01-27] MEDS ORDERED: FERR1TAB8 PO (10:56)
[2023-01-27 12:16] LABS: HEMATOCRIT 28.6 % (36.0-47.0); HEMOGLOBIN 8.1 g/dl (12.0-15.5)
[2023-01-27] MEDS ORDERED: RIVAROXABAN 20MG TAB (XARELTO) PO SCH (21:00)
[2023-01-27] MEDS ORDERED: VENLAFAXINE 25 MG TAB PO SCH (21:00)
[2023-01-27] MEDS ORDERED: TOPIRAMATE (TopAMAX) 100 MG TAB PO SCH (21:00)
[2023-01-27] MEDS ORDERED: ASPIRIN 81MG ENTERIC TABLET PO SCH (21:00)
[2023-01-29] MEDS ORDERED: VITAMIN D 50,000 UNITS CAPSULE (ERGOCALCIFEROL 1.25MG) PO SCH (09:00)
== END 2023-01-27 15:04 | disposition home or self-care (01) ==
LOC: M ED 18:43 → M ED INP 01-27 02:27 → ENRESERV 01-27 03:02 → M MS5PR 01-27 04:35 → UNDODISOB 01-27 15:10
PROVIDERS: ADMIT Family Medicine; ATTEND Family Medicine
DX: D50.9 Iron deficiency anemia, unspecified (principal); K91.2 Postsurgical malabsorption, not elsewhere classified; D75.839 Thrombocytosis, unspecified; Z86.718 Personal history of other venous thrombosis and embolism; Z86.711 Personal history of pulmonary embolism; Z86.73 Personal history of transient ischemic attack (TIA), and cerebral infarction without residual deficits; I10 Essential (primary) hypertension; E78.5 Hyperlipidemia, unspecified; J45.909 Unspecified asthma, uncomplicated; G43.709 Chronic migraine without aura, not intractable, without status migrainosus; F41.9 Anxiety disorder, unspecified; F32.A Depression, unspecified; Z88.1 Allergy status to other antibiotic agents; Z88.5 Allergy status to narcotic agent; Z88.8 Allergy status to other drugs, medicaments and biological substances; Z79.899 Other long term (current) drug therapy; Z79.01 Long term (current) use of anticoagulants; Z79.02 Long term (current) use of antithrombotics/antiplatelets
CPT/HCPCS: 36415; 36430; 74177; 80048; 80076; 82728; 83010; 83550; 83690; 85014; 85018; 85025; 85027; 85046; 85610; 85730; 86850; 86900; 86901; 86920; 87631; 93041; 96361; 96374; 96375; 99285; C9113; J1200; J1439; J2765; J2930; P9016; Q9963; Q9967

== ENCOUNTER 2023-08-29 04:01 | Inpatient (IN) | payer OTHER ==
[~2023-08-29] VITALS: Ht 157.5 cm; Wt 113.6 kg
[~2023-08-29 04:01] MED LIST changes: -ASPI-161 PO; +ASPI-615 PO; +ATOR1TAB21 PO; -EFFE150C2; -EFFE150C2 PO; +EFFE150C3; +EFFE150C3 PO; +ERGO500029 PO; +FERR1TAB8 PO; +LEVE500T5 PO; +TOPI-21 PO; -TOPI-254 PO
[2023-08-29 04:34] LABS: BASO # 0.1 10^3/uL (0.0-0.2); BASO % 0.9 % (0.0-1.0); EOS # 0.2 10^3/uL (0.0-0.5); EOS % 1.8 % (0.0-3.0); HEMATOCRIT 38.4 % (36.0-47.0); LYMPH # 3.5 10^3/uL (1.5-5.0); LYMPH % 42.7 % (24.0-44.0); MEAN CORPUSCULAR HEMOGLOBIN 33.4 pg (27.0-33.0); MEAN CORPUSCULAR HGB CONC 33.9 g/dl (32.0-36.5); MEAN CORPUSCULAR VOLUME 98.7 fl (80.0-96.0); MONO # 0.5 10^3/uL (0.0-0.8); MONO % 6.4 % (2.0-8.0); NEUTROPHILS # 3.9 10^3/uL (1.5-8.5); NEUTROPHILS % 48.1 % (36.0-66.0); PLATELET COUNT, AUTOMATED 288 10^3/uL (150-450); RED BLOOD COUNT 3.89 10^6/uL (4.00-5.40); WHITE BLOOD COUNT 8.1 10^3/uL (4.0-10.0)
[2023-08-29] MEDS: CHARCOAL ACTIVATED LIQUID 25GM/120ML BTL PO ONE (04:35)
[2023-08-29] MEDS: MAG SULF 1GM/100ML (MAG RUN) 1 GM in IV 1 EA IV ONE ×2 (04:37→05:38)
[2023-08-29] MEDS: NS 1,000 ML IV ONE ×3 (04:42→10:39)
[2023-08-29 04:54] LABS: AMPHETAMINES LEVEL URINE NEGATIVE (NEGATIVE); BARBITURATES URINE NEGATIVE (NEGATIVE); BENZODIAZEPINES URINE NEGATIVE (NEGATIVE); CANNABINOIDS URINE NEGATIVE (NEGATIVE); COCAINE METABOLITE URINE NEGATIVE (NEGATIVE); METHADONE URINE NEGATIVE (NEGATIVE); OPIATES URINE NEGATIVE (NEGATIVE); PHENCYCLIDINE URINE NEGATIVE (NEGATIVE)
[2023-08-29 04:57] LABS: ETHYL ALCOHOL (ETHANOL) 0.137 % (0.000-0.010)
[2023-08-29 04:59] LABS: SALICYLATE LEVEL < 3.0 MG/DL (<30)
[2023-08-29 05:10] LABS: ALBUMIN 3.8 G/DL (3.2-5.2); ALKALINE PHOSPHATASE 76 U/L (46-116); ALT/SGPT 20 U/L (7.0-40); AST/SGOT 37 U/L (<34); BILIRUBIN,DIRECT < 0.1 MG/DL (<0.4); BILIRUBIN,TOTAL 0.3 MG/DL (0.3-1.2); BLOOD UREA NITROGEN 14 MG/DL (9-23); CALCIUM LEVEL 8.1 MG/DL (8.5-10.1); CARBON DIOXIDE LEVEL 20 MMOL/L (20-31); CHLORIDE LEVEL 111 MMOL/L (98-107); CPK CREATINE PHOSPHOKINASE 136 U/L (34-145); CREATININE FOR GFR 0.71 MG/DL (0.55-1.30); GLOMERULAR FILTRATION RATE > 60.0 (>58); GLUCOSE, FASTING 74 MG/DL (60-100); POTASSIUM SERUM 4.9 MMOL/L (3.5-5.1); SODIUM LEVEL 139 MMOL/L (136-145); THYROID STIMULATING HORMONE 3.792 uIU/ML (0.55-4.78); TOTAL PROTEIN 6.8 G/DL (5.7-8.2)
[2023-08-29 08:44] LABS: INR 1.4; PARTIAL THROMBOPLASTIN TIME 35.9 SECONDS (24.8-34.2); PROTHROMBIN TIME 16.7 SECONDS (12.5-14.5)
[2023-08-29 09:08] LABS: ALBUMIN 3.4 G/DL (3.2-5.2); ALKALINE PHOSPHATASE 50 U/L (46-116); ALT/SGPT 20 U/L (7.0-40); AST/SGOT 82 U/L (<34); BILIRUBIN,DIRECT < 0.1 MG/DL (<0.4); BILIRUBIN,TOTAL 0.2 MG/DL (0.3-1.2); CPK CREATINE PHOSPHOKINASE 176 U/L (34-145); TOTAL PROTEIN 6.2 G/DL (5.7-8.2)
[2023-08-29] MEDS ORDERED: POLY510P14 PO (09:16)
[2023-08-29] MEDS ORDERED: FERR325T19 PO (09:16)
[2023-08-29] MEDS ORDERED: ONDA4TAB6 SL (09:16)
[2023-08-29] MEDS ORDERED: VITA1CAP25 PO (09:16)
[2023-08-29] MEDS ORDERED: ASPI81TA26 PO (09:18)
[2023-08-29] MEDS ORDERED: HOME MED LIST COMPLETE! XX SCH (09:20)
[2023-08-29] MEDS ORDERED: LORazepam 2 MG TAB PO PRN (10:40)
[2023-08-29] MEDS: FERROUS SULFATE 325MG TAB PO SCH (11:51)
[2023-08-29] MEDS: levETIRAcetam 250MG TABLET (KEPPRA) PO SCH (11:51)
[2023-08-29] MEDS: OMEPRAZOLE 20MG CAP PO SCH (11:51)
[2023-08-29] MEDS: ATORVASTATIN 20 MG TAB PO SCH (11:51)
[2023-08-29] MEDS: THIAMINE 100 MG TAB PO SCH (11:51)
[2023-08-29 12:54] LABS: ALBUMIN 3.6 G/DL (3.2-5.2); ALKALINE PHOSPHATASE 79 U/L (46-116); ALT/SGPT 19 U/L (7.0-40); AST/SGOT 22 U/L (<34); BILIRUBIN,DIRECT < 0.1 MG/DL (<0.4); BILIRUBIN,TOTAL 0.2 MG/DL (0.3-1.2); TOTAL PROTEIN 6.5 G/DL (5.7-8.2)
[2023-08-29 12:55] LABS: ALBUMIN 3.5 G/DL (3.2-5.2); ALKALINE PHOSPHATASE 78 U/L (46-116); ALT/SGPT 22 U/L (7.0-40); AST/SGOT 21 U/L (<34); BILIRUBIN,TOTAL 0.2 MG/DL (0.3-1.2); BLOOD UREA NITROGEN 12 MG/DL (9-23); CARBON DIOXIDE LEVEL 20 MMOL/L (20-31); CHLORIDE LEVEL 113 MMOL/L (98-107); CREATININE FOR GFR 0.71 MG/DL (0.55-1.30); GLOMERULAR FILTRATION RATE > 60.0 (>58); GLUCOSE, FASTING 79 MG/DL (60-100); POTASSIUM SERUM 4.1 MMOL/L (3.5-5.1); SODIUM LEVEL 144 MMOL/L (136-145); TOTAL PROTEIN 6.4 G/DL (5.7-8.2)
[2023-08-29] MEDS: MULTIVITAMIN -ADULT INJECTION 10 ML, THIAMINE INJection 100 MG, FOLIC ACID 1 MG in NS 1... IV ONE (13:00)
[2023-08-29 13:01] LABS: CPK CREATINE PHOSPHOKINASE 137 U/L (34-145)
[2023-08-29] MEDS: NS 500 ML IV ONE (14:00)
[2023-08-29 15:10] VITALS: BP 141/75; TEMP 98.5; O2SAT 98
[2023-08-29] MEDS: VITAMIN D 1,000 INTERNATIONAL UNITS TABLET PO SCH (15:59)
[2023-08-29] MEDS: SUCRALFATE 1 GM TAB PO SCH (17:09)
[2023-08-29 19:01] VITALS: BP 108/58; TEMP 98.9; O2SAT 95
[2023-08-29] MEDS: VENLAFAXINE 25 MG TAB PO SCH (20:33)
[2023-08-29] MEDS: ASPIRIN 81MG ENTERIC TABLET PO SCH (20:34)
[2023-08-29] MEDS: CEFDINIR 300 MG CAP (OMNICEF) PO SCH (20:34)
[2023-08-29] MEDS: RIVAROXABAN 20MG TAB (XARELTO) PO SCH (20:36)
[2023-08-29] MEDS: TOPIRAMATE (TopAMAX) 25 MG TAB PO SCH (20:37)
[2023-08-29] MEDS: TOPIRAMATE (TopAMAX) 100 MG TAB PO SCH (20:37)
[2023-08-29] MEDS ORDERED: VENLAFAXINE 25 MG TAB PO SCH (21:00)
[2023-08-29] MEDS: PHENAZOPYRIDINE 100 MG TAB PO SCH (22:36)
[2023-08-30] VITALS: BP 136/66; TEMP 97.6; O2SAT 98
[2023-08-30 03:51] VITALS: BP 117/64; TEMP 97.6; O2SAT 98
[2023-08-30 06:09] LABS: HEMATOCRIT 36.8 % (36.0-47.0); HEMOGLOBIN 12.3 g/dl (12.0-15.5); MEAN CORPUSCULAR HEMOGLOBIN 32.9 pg (27.0-33.0); MEAN CORPUSCULAR HGB CONC 33.4 g/dl (32.0-36.5); MEAN CORPUSCULAR VOLUME 98.4 fl (80.0-96.0); PLATELET COUNT, AUTOMATED 269 10^3/uL (150-450); RED BLOOD COUNT 3.74 10^6/uL (4.00-5.40); WHITE BLOOD COUNT 6.2 10^3/uL (4.0-10.0)
[2023-08-30 06:22] LABS: INR 1.82; PROTHROMBIN TIME 20.4 SECONDS (12.5-14.5)
[2023-08-30 06:38] LABS: ALBUMIN 2.8 G/DL (3.2-5.2); ALKALINE PHOSPHATASE 74 U/L (46-116); ALT/SGPT 17 U/L (7.0-40); AST/SGOT 27 U/L (<34); BILIRUBIN,TOTAL 0.4 MG/DL (0.3-1.2); BLOOD UREA NITROGEN 14 MG/DL (9-23); CARBON DIOXIDE LEVEL 22 MMOL/L (20-31); CHLORIDE LEVEL 115 MMOL/L (98-107); CREATININE FOR GFR 0.79 MG/DL (0.55-1.30); GLOMERULAR FILTRATION RATE > 60.0 (>58); GLUCOSE, FASTING 87 MG/DL (60-100); POTASSIUM SERUM 3.4 MMOL/L (3.5-5.1); SODIUM LEVEL 145 MMOL/L (136-145); TOTAL PROTEIN 5.5 G/DL (5.7-8.2)
[2023-08-30 07:54] VITALS: BP 127/68; TEMP 97.6; O2SAT 97
[2023-08-30] MEDS ORDERED: CEFD300CAP PO (09:04)
[2023-08-30] MEDS ORDERED: FOLI1TAB11 PO (09:04)
[2023-08-30] MEDS ORDERED: Multivitamins PO (09:04)
[2023-08-30] MEDS ORDERED: THIA100TA PO (09:04)
[2023-08-30] MEDS ORDERED: VENL1TAB35 PO (09:04)
[2023-08-30] MEDS: POTASSIUM CHLORIDE 10MEQ SR TABLET PO ONE (09:18)
[2023-08-30] MEDS: MULTIVITAMINS/MINERALS THERAP 1 TAB PO SCH (09:20)
[2023-08-30] MEDS: FOLIC ACID 1MG TAB PO SCH (09:20)
[2023-08-30 11:46] VITALS: BP 157/78; TEMP 97.6; O2SAT 98
[2023-08-30 13:36] VITALS: BP 136/66; TEMP 97.8; O2SAT 99
== END 2023-08-30 13:53 | DRG 812 ==
LOC: M ED 04:01 → EEVIPCON 10:31 → M ED INP 10:31 → ENRESERV 14:04 → M PCU 14:59
PROVIDERS: ADMIT Hospitalist; ATTEND Hospitalist
DX: T45.0X2A Poisoning by antiallergic and antiemetic drugs, intentional self-harm, initial encounter (principal); F33.2 Major depressive disorder, recurrent severe without psychotic features; I10 Essential (primary) hypertension; D50.9 Iron deficiency anemia, unspecified; F10.10 Alcohol abuse, uncomplicated; N39.0 Urinary tract infection, site not specified; T43.592A Poisoning by other antipsychotics and neuroleptics, intentional self-harm, initial encounter; K21.9 Gastro-esophageal reflux disease without esophagitis; E78.5 Hyperlipidemia, unspecified; E53.8 Deficiency of other specified B group vitamins; G43.909 Migraine, unspecified, not intractable, without status migrainosus; G40.909 Epilepsy, unspecified, not intractable, without status epilepticus; F43.10 Post-traumatic stress disorder, unspecified; T14.91XA Suicide attempt, initial encounter; Z91.51 Personal history of suicidal behavior; Z86.718 Personal history of other venous thrombosis and embolism; Z86.711 Personal history of pulmonary embolism; Z79.01 Long term (current) use of anticoagulants; Z79.82 Long term (current) use of aspirin; Z79.899 Other long term (current) drug therapy; Z88.5 Allergy status to narcotic agent; Z88.8 Allergy status to other drugs, medicaments and biological substances; Z88.6 Allergy status to analgesic agent

== ENCOUNTER 2023-08-30 09:53 | Inpatient (IN) | payer MEDICAID, OTHER ==
[~2023-08-30] VITALS: Ht 157.5 cm; Wt 113.6 kg
[~2023-08-30 09:53] MED LIST changes: +ASPI81TA26 PO; +ATORVASTATIN 20 MG TAB PO SCH; +CEFDINIR 300 MG CAP (OMNICEF) PO SCH; +DOXY-440 PO; -DOXY-444 PO; +FERR325T19 PO; +FERROUS SULFATE 325MG TAB PO SCH; +FOLI1TAB11 PO; +FOLIC ACID 1MG TAB PO SCH; +MULTIVITAMINS/MINERALS THERAP 1 TAB PO SCH; +Multivitamins PO; +NICOTINE 14 MG/24 HR TRANSDERMAL TD SCH; +OMEPRAZOLE 20MG CAP PO SCH; +ONDA4TAB6 SL; +POLY510P14 PO; +SUCRALFATE 1 GM TAB PO SCH; +THIA100TA PO; +VENL1TAB35 PO; +VITA1CAP25 PO; +levETIRAcetam 250MG TABLET (KEPPRA) PO SCH
[2023-08-30] MEDS ORDERED: diphenhydrAMINE 25MG CAP PO PRN (13:05)
[2023-08-30] MEDS ORDERED: MAALOX 30 ML SUSP *UDC PO PRN (13:05)
[2023-08-30] MEDS ORDERED: MOM 30ML SUSPENSION UDC PO PRN (13:05)
[2023-08-30] MEDS ORDERED: ACETAMINOPHEN TAB 650MG DOSE (2X325MG) PO PRN (13:05)
[2023-08-30] MEDS ORDERED: ONDANSETRON 4MG ORAL DISINTEGRATING TAB SL PRN (13:05)
[2023-08-30] MEDS ORDERED: LORazepam 2 MG TAB PO PRN (13:05)
[2023-08-30] MEDS ORDERED: POLYETHYLENE GLYCOL (MIRALAX) 238GM BOTTLE PO PRN (13:05)
[2023-08-30 14:00] VITALS: BP 129/70; TEMP 98.3; O2SAT 98
[2023-08-30] MEDS ORDERED: THIAMINE 100 MG TAB PO SCH ×2 (14:15→21:00)
[2023-08-30] MEDS: SUCRALFATE 1 GM TAB PO SCH (17:02)
[2023-08-30] MEDS ORDERED: RIVAROXABAN 20MG TAB (XARELTO) PO SCH (18:00)
[2023-08-30] MEDS: OMEPRAZOLE 20MG CAP PO SCH (20:32)
[2023-08-30] MEDS: TOPIRAMATE (TopAMAX) 100 MG TAB PO SCH (20:32)
[2023-08-30] MEDS: levETIRAcetam 250MG TABLET (KEPPRA) PO SCH (20:32)
[2023-08-30] MEDS: THIAMINE 100 MG TAB PO SCH (20:32)
[2023-08-30] MEDS: traZODone 50 MG TAB PO PRN (20:32)
[2023-08-30] MEDS: ASPIRIN 81MG ENTERIC TABLET PO SCH (20:32)
[2023-08-30] MEDS: TOPIRAMATE (TopAMAX) 25 MG TAB PO SCH (20:32)
[2023-08-30] MEDS: RIVAROXABAN 20MG TAB (XARELTO) PO SCH (20:33)
[2023-08-30] MEDS: CEFDINIR 300 MG CAP (OMNICEF) PO SCH (20:33)
[2023-08-30] MEDS: VENLAFAXINE 37.5 MG TAB PO SCH (20:33)
[2023-08-30 21:41] VITALS: BP 92/55
[2023-08-30] MEDS: PHENAZOPYRIDINE 100 MG TAB PO ONE (22:59)
[2023-08-31 05:41] VITALS: BP 114/60; TEMP 97; O2SAT 100
[2023-08-31] MEDS: MULTIVITAMINS/MINERALS THERAP 1 TAB PO SCH (08:34)
[2023-08-31] MEDS: FOLIC ACID 1MG TAB PO SCH (08:34)
[2023-08-31] MEDS: ATORVASTATIN 20 MG TAB PO SCH (08:34)
[2023-08-31] MEDS: FERROUS SULFATE 325MG TAB PO SCH (08:34)
[2023-08-31] MEDS ORDERED: FOLIC ACID 1MG TAB PO SCH (09:00)
[2023-08-31 10:26] LABS: GC DNA AMPLIFICATION NEGATIVE (NEGATIVE)
[2023-08-31 12:18] LABS: Trichomonas vaginalis (AMP) NOT DETECTED (NEGATIVE)
[2023-08-31] MEDS: PHENAZOPYRIDINE 100 MG TAB PO SCH (15:42)
[2023-08-31 18:53] VITALS: BP 121/66; TEMP 97.3
[2023-08-31] MEDS: VENLAFAXINE 37.5 MG TAB PO SCH (20:32)
[2023-09-01 06:06] VITALS: BP 131/64; TEMP 97.9; O2SAT 97
[2023-09-01 09:40] VITALS: BP 128/74
[2023-09-01] MEDS: FUROSEMIDE 20 MG TAB PO PRN (09:40)
[2023-09-01] MEDS: VENLAFAXINE 37.5 MG TAB PO SCH (11:30)
[2023-09-01 17:53] VITALS: BP 107/63; TEMP 98.1; O2SAT 97
[2023-09-02 06:21] VITALS: BP 110/66; TEMP 97.9; O2SAT 95
[2023-09-02] MEDS ORDERED: HYDR-3363 PO (08:27)
[2023-09-02] MEDS ORDERED: VENL1TAB35 PO (08:27)
[2023-09-02] MEDS ORDERED: VENL100T PO (08:27)
[2023-09-02] MEDS ORDERED: TOPI-21 PO (08:27)
[2023-09-02] MEDS ORDERED: TOPI100T9 PO (08:27)
[2023-09-02] MEDS ORDERED: CEFD300CAP PO (08:27)
== END 2023-09-02 11:30 | disposition home or self-care (01) | DRG 751 ==
LOC: M PSY 13:57
PROVIDERS: ADMIT Student in an Organized Health Care Education/Training Program; ATTEND Student in an Organized Health Care Education/Training Program
DX: F33.2 Major depressive disorder, recurrent severe without psychotic features (principal); G40.909 Epilepsy, unspecified, not intractable, without status epilepticus; D50.9 Iron deficiency anemia, unspecified; E78.5 Hyperlipidemia, unspecified; G43.909 Migraine, unspecified, not intractable, without status migrainosus; K21.9 Gastro-esophageal reflux disease without esophagitis; F43.10 Post-traumatic stress disorder, unspecified; M54.9 Dorsalgia, unspecified; G89.29 Other chronic pain; G62.9 Polyneuropathy, unspecified; F10.90 Alcohol use, unspecified, uncomplicated; K75.81 Nonalcoholic steatohepatitis (NASH); G47.33 Obstructive sleep apnea (adult) (pediatric); I10 Essential (primary) hypertension; J45.909 Unspecified asthma, uncomplicated; Z86.16 Personal history of COVID-19; Z86.73 Personal history of transient ischemic attack (TIA), and cerebral infarction without residual deficits; Z79.01 Long term (current) use of anticoagulants; Z79.82 Long term (current) use of aspirin; Z86.718 Personal history of other venous thrombosis and embolism; Z86.711 Personal history of pulmonary embolism; Z81.8 Family history of other mental and behavioral disorders; Z79.899 Other long term (current) drug therapy; Z88.5 Allergy status to narcotic agent; Z88.6 Allergy status to analgesic agent; Z88.8 Allergy status to other drugs, medicaments and biological substances; Z98.84 Bariatric surgery status; Z90.79 Acquired absence of other genital organ(s)

== ENCOUNTER → 2024-01-09 | Outpatient (CLI) | payer OTHER ==
[~2024-01-09] MED LIST changes: -ARIP1TAB43 PO; +ARIP20TA51 PO; +ATOG60TA PO; -ATORVASTATIN 20 MG TAB PO SCH; -CEFDINIR 300 MG CAP (OMNICEF) PO SCH; -FERROUS SULFATE 325MG TAB PO SCH; -FOLIC ACID 1MG TAB PO SCH; -MULTIVITAMINS/MINERALS THERAP 1 TAB PO SCH; -NICOTINE 14 MG/24 HR TRANSDERMAL TD SCH; -OMEPRAZOLE 20MG CAP PO SCH; +ONDA-282 PO; +ONDA-282 SL; -ONDA4TAB6 PO; -ONDA4TAB6 SL; -SUCRALFATE 1 GM TAB PO SCH; -levETIRAcetam 250MG TABLET (KEPPRA) PO SCH
[2024-01-09 16:45] LABS: HIV 1&2 SCREEN NEGATIVE (NEGATIVE)
[2024-01-09 16:52] LABS: HEPATITIS C VIRUS ABY INDEX < 0.02 INDEX (<0.8)
[2024-01-09 16:53] LABS: HEPATITIS B CORE ANTIBODY IGM NEGATIVE (NEGATIVE)
[2024-01-09 17:04] LABS: GC DNA AMPLIFICATION NEGATIVE (NEGATIVE)
== END ==
LOC: M PLALAB 12:48
PROVIDERS: ATTEND Obstetrics & Gynecology
DX: Z11.3 Encounter for screening for infections with a predominantly sexual mode of transmission (principal)

== ENCOUNTER 2024-01-13 13:30 | Emergency (ER) | payer OTHER ==
[~2024-01-13] VITALS: Ht 157.5 cm; Wt 103.2 kg
[2024-01-13 14:05] LABS: BASO # 0.1 10^3/uL (0.0-0.2); BASO % 0.7 % (0.0-1.0); EOS # 0.2 10^3/uL (0.0-0.5); EOS % 2.3 % (0.0-3.0); HEMATOCRIT 42.8 % (36.0-47.0); HEMOGLOBIN 14.3 g/dl (12.0-15.5); LYMPH # 2.1 10^3/uL (1.5-5.0); LYMPH % 27.8 % (24.0-44.0); MEAN CORPUSCULAR HEMOGLOBIN 33.5 pg (27.0-33.0); MEAN CORPUSCULAR HGB CONC 33.4 g/dl (32.0-36.5); MEAN CORPUSCULAR VOLUME 100.2 fl (80.0-96.0); MONO # 0.5 10^3/uL (0.0-0.8); NEUTROPHILS # 4.7 10^3/uL (1.5-8.5); NEUTROPHILS % 62.9 % (36.0-66.0); PLATELET COUNT, AUTOMATED 283 10^3/uL (150-450); RED BLOOD COUNT 4.27 10^6/uL (4.00-5.40); WHITE BLOOD COUNT 7.4 10^3/uL (4.0-10.0)
[2024-01-13 14:16] LABS: INR 1.2; PROTHROMBIN TIME 14.8 SECONDS (12.5-14.5)
[2024-01-13 14:31] LABS: CK-MB VALUE MASS < 1.0 NG/ML (<3.6)
[2024-01-13 14:33] LABS: BLOOD UREA NITROGEN 13 MG/DL (9-23); CALCIUM LEVEL 9.4 MG/DL (8.5-10.1); CARBON DIOXIDE LEVEL 21 MMOL/L (20-31); CHLORIDE LEVEL 115 MMOL/L (98-107); CPK CREATINE PHOSPHOKINASE 58 U/L (34-145); CREATININE FOR GFR 0.74 MG/DL (0.55-1.30); GLOMERULAR FILTRATION RATE > 60.0 (>58); GLUCOSE, FASTING 80 MG/DL (60-100); MB/CK RELATIVE INDEX 1.72 (< OR =4); POTASSIUM SERUM 3.3 MMOL/L (3.5-5.1); SODIUM LEVEL 145 MMOL/L (136-145)
[2024-01-13 15:48] LABS: CK-MB VALUE MASS < 1.0 NG/ML (<3.6); CPK CREATINE PHOSPHOKINASE 61 U/L (34-145); MB/CK RELATIVE INDEX 1.63 (< OR =4)
[2024-01-13] MEDS ORDERED: ISOVUE-370 76% 100ML VIAL As Ordered ONE (16:53)
[2024-01-13] MEDS: MAALOX 30 ML SUSP *UDC PO ONE (17:05)
[2024-01-13] MEDS: LIDOCAINE VISCOUS 2% SOLN 15ML UDC PO ONE (17:05)
[2024-01-13] MEDS: SUCRALFATE SUSP 1GM/10ML UD PO ONE (17:05)
[2024-01-13] MEDS ORDERED: SUCR1SS PO (17:56)
[2024-01-13 18:21] VITALS: BP 110/66; TEMP 97.9; O2SAT 96
== END 2024-01-13 18:25 | disposition home or self-care (01) ==
LOC: M ED 13:30
DX: K21.00 Gastro-esophageal reflux disease with esophagitis, without bleeding (principal); E78.5 Hyperlipidemia, unspecified; Z88.8 Allergy status to other drugs, medicaments and biological substances; Z79.1 Long term (current) use of non-steroidal anti-inflammatories (NSAID); Z79.899 Other long term (current) drug therapy
CPT/HCPCS: 36415; 71046; 71275; 80048; 82550; 82553; 84484; 85025; 85610; 93005; 93041; 94760; 99285; Q9967

== ENCOUNTER 2024-02-18 15:21 | Emergency (ER) | payer OTHER ==
[~2024-02-18] VITALS: Ht 157.5 cm; Wt 103.4 kg
[~2024-02-18 15:21] MED LIST changes: +SUCR1SS PO
[2024-02-18 15:34] VITALS: BP 147/84; TEMP 98; O2SAT 97
[2024-02-18] MEDS ORDERED: ATOG60TA PO (15:47)
[2024-02-18 16:25] LABS: BASO # 0.1 10^3/uL (0.0-0.2); BASO % 1.1 % (0.0-1.0); EOS # 0.3 10^3/uL (0.0-0.5); EOS % 3.3 % (0.0-3.0); HEMATOCRIT 41.8 % (36.0-47.0); HEMOGLOBIN 14.3 g/dl (12.0-15.5); LYMPH # 1.5 10^3/uL (1.5-5.0); LYMPH % 19.6 % (24.0-44.0); MEAN CORPUSCULAR HEMOGLOBIN 34.5 pg (27.0-33.0); MEAN CORPUSCULAR HGB CONC 34.2 g/dl (32.0-36.5); MEAN CORPUSCULAR VOLUME 100.7 fl (80.0-96.0); MONO # 0.6 10^3/uL (0.0-0.8); MONO % 7.8 % (2.0-8.0); PLATELET COUNT, AUTOMATED 302 10^3/uL (150-450); RED BLOOD COUNT 4.15 10^6/uL (4.00-5.40); WHITE BLOOD COUNT 7.6 10^3/uL (4.0-10.0)
[2024-02-18 16:50] LABS: LIPASE 30 U/L (12-53)
[2024-02-18 16:52] LABS: ALBUMIN 3.5 G/DL (3.2-5.2); ALKALINE PHOSPHATASE 94 U/L (46-116); ALT/SGPT 24 U/L (7.0-40); AST/SGOT 20 U/L (<34); BILIRUBIN,DIRECT 0.1 MG/DL (<0.4); BILIRUBIN,TOTAL 0.4 MG/DL (0.3-1.2); BLOOD UREA NITROGEN 11 MG/DL (9-23); CALCIUM LEVEL 9.2 MG/DL (8.5-10.1); CARBON DIOXIDE LEVEL 20 MMOL/L (20-31); CHLORIDE LEVEL 118 MMOL/L (98-107); CREATININE FOR GFR 0.61 MG/DL (0.55-1.30); GLOMERULAR FILTRATION RATE > 60.0 (>58); GLUCOSE, FASTING 101 MG/DL (60-100); POTASSIUM SERUM 3.8 MMOL/L (3.5-5.1); SODIUM LEVEL 145 MMOL/L (136-145); TOTAL PROTEIN 6.9 G/DL (5.7-8.2)
[2024-02-18] MEDS ORDERED: ONDA-282 PO (19:08)
[2024-02-18] MEDS ORDERED: AMOX875T2 PO (19:08)
[2024-02-18] MEDS: NORCO, ANEXSIA 5/325MG TABLET (HYDROcodone/ACETAMINOPHEN) PO ONE (19:15)
[2024-02-18] MEDS: AUGMENTIN 875 MG TAB PO ONE (19:15)
[2024-02-18] MEDS: ONDANSETRON 4MG ORAL DISINTEGRATING TAB PO ONE (19:15)
== END 2024-02-18 19:39 | disposition home or self-care (01) ==
LOC: M ED 15:21
DX: K57.92 Diverticulitis of intestine, part unspecified, without perforation or abscess without bleeding (principal); Z88.8 Allergy status to other drugs, medicaments and biological substances; Z88.5 Allergy status to narcotic agent; Z79.2 Long term (current) use of antibiotics; Z79.1 Long term (current) use of non-steroidal anti-inflammatories (NSAID); Z79.899 Other long term (current) drug therapy; Z79.810 Long term (current) use of selective estrogen receptor modulators (SERMs)

== ENCOUNTER 2024-07-22 15:07 | Emergency (ER) | payer OTHER ==
[~2024-07-22] VITALS: Ht 154.9 cm; Wt 103.5 kg
[2024-07-22] MEDS: AUGMENTIN 875 MG TAB PO ONE (16:55)
[2024-07-22] MEDS ORDERED: AMOX875T2 PO (17:16)
[2024-07-22 17:19] VITALS: BP 104/59; TEMP 98.2; O2SAT 97
== END 2024-07-22 17:20 | disposition home or self-care (01) ==
LOC: M ED 15:07
DX: S06.0X0A Concussion without loss of consciousness, initial encounter (principal); K05.6 Periodontal disease, unspecified; Y92.019 Unspecified place in single-family (private) house as the place of occurrence of the external cause; Y93.9 Activity, unspecified; Y99.9 Unspecified external cause status; W22.09XA Striking against other stationary object, initial encounter; Z88.5 Allergy status to narcotic agent; Z88.6 Allergy status to analgesic agent; Z88.8 Allergy status to other drugs, medicaments and biological substances; Z79.1 Long term (current) use of non-steroidal anti-inflammatories (NSAID); Z79.2 Long term (current) use of antibiotics; Z79.01 Long term (current) use of anticoagulants; Z79.899 Other long term (current) drug therapy; Z79.810 Long term (current) use of selective estrogen receptor modulators (SERMs)

== ENCOUNTER → 2024-08-06 | Outpatient (REF) | payer OTHER ==
[~2024-08-06] MED LIST changes: -AMBI10TA PO; -AMBI5TAB PO; -PREG50CA PO; +PREG50CA87 PO; +TOPI-14 PO; +TOPI-257 PO; -TOPI100T9 PO; -TOPI200T7 PO; +ZOLP-532 PO; +ZOLP-533 PO
[2024-08-06 16:33] LABS: BASO # 0.1 10^3/uL (0.0-0.2); BASO % 1.2 % (0.0-1.0); EOS # 0.1 10^3/uL (0.0-0.5); EOS % 2.2 % (0.0-3.0); HEMATOCRIT 41.5 % (36.0-47.0); LYMPH # 2.1 10^3/uL (1.5-5.0); MEAN CORPUSCULAR HEMOGLOBIN 33.9 pg (27.0-33.0); MEAN CORPUSCULAR HGB CONC 33.7 g/dl (32.0-36.5); MEAN CORPUSCULAR VOLUME 100.5 fl (80.0-96.0); MONO # 0.3 10^3/uL (0.0-0.8); MONO % 5.2 % (2.0-8.0); NEUTROPHILS # 3.9 10^3/uL (1.5-8.5); NEUTROPHILS % 59.1 % (36.0-66.0); PLATELET COUNT, AUTOMATED 301 10^3/uL (150-450); RED BLOOD COUNT 4.13 10^6/uL (4.00-5.40); WHITE BLOOD COUNT 6.5 10^3/uL (4.0-10.0)
[2024-08-06 16:58] LABS: CREATININE, URINE 53.6 MG/DL
[2024-08-06 16:59] LABS: ALBUMIN 3.8 G/DL (3.2-5.2); ALKALINE PHOSPHATASE 86 U/L (35-104); ALT/SGPT 22 U/L (7.0-40); AST/SGOT 24 U/L (<34); BILIRUBIN,TOTAL 0.4 MG/DL (0.3-1.2); BLOOD UREA NITROGEN 13 MG/DL (9-23); CALCIUM LEVEL 9.1 MG/DL (8.5-10.1); CARBON DIOXIDE LEVEL 22 MMOL/L (20-31); CHLORIDE LEVEL 109 MMOL/L (98-107); CHOLESTEROL LEVEL 233 MG/DL (<200); CHOLESTEROL RISK RATIO 3.43 (<5); CREATININE FOR GFR 0.68 MG/DL (0.55-1.30); GLOMERULAR FILTRATION RATE > 60.0 (>58); GLUCOSE, FASTING 90 MG/DL (60-100); HDL CHOLESTEROL 67.8 MG/DL (>40); LDL CHOLESTEROL 125.8 MG/DL (<100); MALB URINE SIEMENS < 3.0 MG/L; NON-HDL-C 165.2 MG/DL; POTASSIUM SERUM 3.6 MMOL/L (3.5-5.1); SODIUM LEVEL 141 MMOL/L (136-145); TOTAL PROTEIN 7.1 G/DL (5.7-8.2); TRIGLYCERIDES LEVEL 197 MG/DL (<150)
[2024-08-06 17:02] LABS: THYROID STIMULATING HORMONE 1.192 uIU/ML (0.55-4.78)
== END ==
LOC: M LAB REF 15:57
PROVIDERS: ATTEND Nurse Practitioner
DX: E11.9 Type 2 diabetes mellitus without complications (principal)
CPT/HCPCS: 36415; 80053; 80061; 80177; 81240; 82043; 82728; 83550; 84443; 85025; 86146; 86147; G0463

== ENCOUNTER → 2024-08-14 | Outpatient (CLI) | payer OTHER ==
[~2024-08-14] MED LIST changes: +AMBI10TA PO; +AMBI5TAB PO; +PREG50CA PO; -PREG50CA87 PO; +PROHANCE 279.3MG/ML 15ML VIAL ONE; +PROHANCE 279.3MG/ML 5ML VIAL ONE; -TOPI-14 PO; -TOPI-257 PO; +TOPI100T9 PO; +TOPI200T7 PO; -ZOLP-532 PO; -ZOLP-533 PO
== END ==
LOC: M PLAIMG 11:46
PROVIDERS: ATTEND Psychiatry & Neurology Neurology
DX: R56.9 Unspecified convulsions (principal)

== ENCOUNTER → 2024-08-14 | Outpatient (CLI) | payer OTHER ==
[~2024-08-14] MED LIST changes: -PROHANCE 279.3MG/ML 15ML VIAL ONE; -PROHANCE 279.3MG/ML 5ML VIAL ONE
== END ==
LOC: M WHC 13:02
PROVIDERS: ATTEND Obstetrics & Gynecology
DX: N64.4 Mastodynia (principal); R92.313 Mammographic fatty tissue density, bilateral breasts

== ENCOUNTER → 2024-12-10 | Outpatient (REF) | payer OTHER ==
[~2024-12-10] MED LIST changes: -AMBI10TA PO; -AMBI5TAB PO; +LIDO1ADH93 TD; -LIDO5DIS41 TD; -PREG50CA PO; +PREG50CA87 PO; +TOPI-14 PO; +TOPI-257 PO; -TOPI100T9 PO; -TOPI200T7 PO; +ZOLP-532 PO; +ZOLP-533 PO
== END ==
LOC: M LAB REF 14:07
PROVIDERS: ATTEND Nurse Practitioner Family
DX: R30.0 Dysuria (principal)

== ENCOUNTER 2024-12-23 04:03 | Emergency (ER) | payer OTHER ==
[2024-12-23 08:11] LABS: APPEARANCE, URINE CLEAR (CLEAR); BACTERIA, URINE AUTO NEGATIVE (NEGATIVE); BILIRUBIN, URINE AUTO NEGATIVE (NEGATIVE); BLOOD, URINE BLOOD NEGATIVE (NEGATIVE); GLUCOSE, URINE (UA) AUTO NEGATIVE (NEGATIVE); KETONE, URINE AUTO NEGATIVE (NEGATIVE); LEUKOCYTE ESTERASE, URINE AUTO NEGATIVE (NEGATIVE); NITRITE, URINE AUTO NEGATIVE (NEGATIVE); PROTEIN, URINE AUTO NEGATIVE (NEGATIVE); RBC, URINE AUTO 0 /HPF (0-3); SPECIFIC GRAVITY URINE AUTO 1.002 (1.002-1.035); SQUAMOUS EPITHELIAL CELL UR AU 0 /HPF (0-6); UROBILINOGEN, URINE AUTO 0.2 mg/dL (0.0-2.0); WBC, URINE AUTO 0 /HPF (0-3)
[2024-12-23] MEDS: NS (Normal Saline) 0.9% 1,000 ML IV ONE (08:18)
[2024-12-23 08:26] LABS: BASO # 0.1 10^3/uL (0.0-0.2); BASO % 1.0 % (0.0-1.0); EOS # 0.2 10^3/uL (0.0-0.5); EOS % 3.2 % (0.0-3.0); LYMPH # 2.3 10^3/uL (1.5-5.0); LYMPH % 39.8 % (24.0-44.0); MONO # 0.4 10^3/uL (0.0-0.8); MONO % 7.5 % (2.0-8.0); NEUTROPHILS # 2.8 10^3/uL (1.5-8.5); NEUTROPHILS % 48.2 % (36.0-66.0); PLATELET COUNT, AUTOMATED 273 10^3/uL (150-450)
[2024-12-23 08:32] LABS: AMPHETAMINES LEVEL URINE NEGATIVE (NEGATIVE)
[2024-12-23 08:33] LABS: BARBITURATES URINE NEGATIVE (NEGATIVE); BENZODIAZEPINES URINE NEGATIVE (NEGATIVE); CANNABINOIDS URINE NEGATIVE (NEGATIVE); COCAINE METABOLITE URINE NEGATIVE (NEGATIVE); METHADONE URINE NEGATIVE (NEGATIVE); OPIATES URINE NEGATIVE (NEGATIVE); PHENCYCLIDINE URINE NEGATIVE (NEGATIVE)
[2024-12-23] MEDS: ONDANSETRON 4MG 2ML VIAL IV ONE ×2 (08:34→14:04)
[2024-12-23 08:38] LABS: INR 1.28
[2024-12-23 08:49] LABS: CK-MB VALUE MASS 2.3 NG/ML (<3.6)
[2024-12-23 08:55] LABS: ETHYL ALCOHOL (ETHANOL) 0.100 % (0.000-0.010)
[2024-12-23 08:57] LABS: ALT/SGPT 20 U/L (7.0-40); AST/SGOT 29 U/L (<34); CALCIUM LEVEL 8.6 MG/DL (8.5-10.1); CARBON DIOXIDE LEVEL 24 MMOL/L (20-31); CHLORIDE LEVEL 114 MMOL/L (98-107); CPK CREATINE PHOSPHOKINASE 131 U/L (34-145); CREATININE FOR GFR 0.71 MG/DL (0.55-1.30); GLOMERULAR FILTRATION RATE > 90.0 (>51); MB/CK RELATIVE INDEX 1.75 (< OR =4); POTASSIUM SERUM 3.7 MMOL/L (3.5-5.1); SODIUM LEVEL 151 MMOL/L (136-145)
[2024-12-23] MEDS: ACETAMINOPHEN *IV* 1,000 MG in IV 1 EA IV ONE (12:01)
[2024-12-23] MEDS: D5W 1,000 ML IV SCH (12:16)
[2024-12-23 13:06] LABS: HEPATITIS B SURFACE ANTIBODY POSITIVE (POSITIVE)
[2024-12-23] MEDS: TETANUS/DIPHTH/ACEL. PERTUSSIS 0.5 ML SYR IM.IMMUN ONE (13:08)
[2024-12-23] MEDS: LIDOCAINE 1% SDV 5 ML VIAL DILUENT ONE (13:10)
[2024-12-23] MEDS: AZITHROMYCIN 250 MG TABLET PO ONE (13:10)
[2024-12-23] MEDS: cefTRIAXone 500 MG VIAL IM ONE (13:10)
[2024-12-23 13:31] LABS: HIV 1&2 SCREEN NEGATIVE (NEGATIVE)
[2024-12-23 13:40] LABS: HEPATITIS C VIRUS ABY INDEX < 0.02 INDEX (<0.8)
[2024-12-23 13:52] VITALS: BP 110/55; TEMP 98.3
[2024-12-23 14:00] VITALS: O2SAT 95
== END 2024-12-23 14:32 | disposition home or self-care (01) ==
LOC: M ED 04:03
DX: T76.21XA Adult sexual abuse, suspected, initial encounter (principal); M47.812 Spondylosis without myelopathy or radiculopathy, cervical region; G40.909 Epilepsy, unspecified, not intractable, without status epilepticus; I11.0 Hypertensive heart disease with heart failure; E78.5 Hyperlipidemia, unspecified; G43.909 Migraine, unspecified, not intractable, without status migrainosus; E61.1 Iron deficiency; E53.8 Deficiency of other specified B group vitamins; F32.A Depression, unspecified; Z86.711 Personal history of pulmonary embolism; Z86.718 Personal history of other venous thrombosis and embolism; Z98.84 Bariatric surgery status; K75.81 Nonalcoholic steatohepatitis (NASH); Z87.19 Personal history of other diseases of the digestive system; F17.200 Nicotine dependence, unspecified, uncomplicated; Z79.82 Long term (current) use of aspirin; Z79.01 Long term (current) use of anticoagulants; Z79.899 Other long term (current) drug therapy; Z88.6 Allergy status to analgesic agent; Z88.5 Allergy status to narcotic agent; Z88.8 Allergy status to other drugs, medicaments and biological substances
CPT/HCPCS: 70450; 70486; 72125; 80048; 80076; 80307; 81001; 82077; 82150; 82550; 82553; 83605; 83690; 84484; 85025; 85610; 85730; 86706; 86780; 86803; 86850; 86900; 86901; 87340; 87389; 90471; 90715; 93005; 93041; 94760; 96361; 96365; 96366; 96368; 96372; 96375; 96376; 99285; J0131; J0696; J2405

== ENCOUNTER → 2025-02-16 | Outpatient (CLI) | payer OTHER ==
[~2025-02-16] MED LIST changes: +PRAZ1CAP; +ZOLP10TA11 PO; -ZOLP10TA2 PO
== END ==
LOC: M RAD 14:12
PROVIDERS: ATTEND Nurse Practitioner
DX: T74.21XA Adult sexual abuse, confirmed, initial encounter (principal); T74.11XA Adult physical abuse, confirmed, initial encounter; S09.90XA Unspecified injury of head, initial encounter

== ENCOUNTER 2025-04-10 15:08 | Emergency (ER) | payer OTHER ==
[~2025-04-10] VITALS: Ht 154.9 cm; Wt 102.8 kg
[2025-04-10 15:51] LABS: BASO # 0.1 10^3/uL (0.0-0.2); BASO % 0.9 % (0.0-1.0); EOS # 0.2 10^3/uL (0.0-0.5); EOS % 2.4 % (0.0-3.0); LYMPH # 2.5 10^3/uL (1.5-5.0); LYMPH % 35.9 % (24.0-44.0); MONO # 0.4 10^3/uL (0.0-0.8); MONO % 6.1 % (2.0-8.0); NEUTROPHILS # 3.8 10^3/uL (1.5-8.5); NEUTROPHILS % 54.4 % (36.0-66.0); PLATELET COUNT, AUTOMATED 307 10^3/uL (150-450)
[2025-04-10 16:08] LABS: ALT/SGPT 28 U/L (7.0-40); AST/SGOT 39 U/L (<34); CALCIUM LEVEL 9.0 MG/DL (8.5-10.1); CARBON DIOXIDE LEVEL 24 MMOL/L (20-31); CHLORIDE LEVEL 108 MMOL/L (98-107); CK-MB VALUE MASS 1.1 NG/ML (<3.6); CREATININE FOR GFR 0.87 MG/DL (0.55-1.30); GLOMERULAR FILTRATION RATE 81.1 (>51); POTASSIUM SERUM 4.3 MMOL/L (3.5-5.1); SODIUM LEVEL 141 MMOL/L (136-145)
[2025-04-10 16:09] LABS: FREE T4 1.14 NG/DL (0.89-1.76)
[2025-04-10 16:11] LABS: CPK CREATINE PHOSPHOKINASE 100 U/L (34-145); MB/CK RELATIVE INDEX 1.10 (< OR =4)
[2025-04-10 17:08] LABS: CK-MB VALUE MASS 1.2 NG/ML (<3.6)
[2025-04-10 17:16] LABS: CPK CREATINE PHOSPHOKINASE 85 U/L (34-145); MB/CK RELATIVE INDEX 1.41 (< OR =4)
[2025-04-10 17:30] VITALS: BP 118/57; TEMP 98.3; O2SAT 96
== END 2025-04-10 17:45 | disposition home or self-care (01) ==
LOC: M ED 15:08
DX: R07.9 Chest pain, unspecified (principal); R94.31 Abnormal electrocardiogram [ECG] [EKG]; E78.5 Hyperlipidemia, unspecified; K21.9 Gastro-esophageal reflux disease without esophagitis; F32.A Depression, unspecified; Z86.718 Personal history of other venous thrombosis and embolism; Z88.2 Allergy status to sulfonamides; Z88.5 Allergy status to narcotic agent; Z88.6 Allergy status to analgesic agent; Z79.1 Long term (current) use of non-steroidal anti-inflammatories (NSAID); Z79.899 Other long term (current) drug therapy; Z79.810 Long term (current) use of selective estrogen receptor modulators (SERMs)